=== PATIENT | male | born 1950 | race Caucasian/White ===

== ENCOUNTER 2019-04-29 09:23 | Outpatient (CLI) | payer MEDICARE, OTHER, SELFPAY ==
[2019-04-29 10:08] LABS: Basophils # 0.1 10^3/uL (0.0-0.1); Basophils % 0.9 %; Eosinophils # 0.2 10^3/uL (0.0-0.8); Eosinophils % 2.7 %; Hemoglobin 11.4 g/dL (11.7-16.6); Lymphocytes # 1.4 10^3/uL (0.8-4.8); Lymphocytes % 17.7 %; Mean Corpuscular HGB Conc 30.8 g/dL (30.0-36.0); Mean Corpuscular Hemoglobin 23.8 pg (28.0-34.0); Mean Corpuscular Volume 77.2 fL (80-94); Mean Platelet Volume 10.2 fL (7.4-10.4); Monocytes # 0.7 10^3/uL (0.2-0.9); Monocytes % 9.5 %; Neutrophils # 5.3 10^3/uL (1.8-7.7); Neutrophils % 68.6 %; Nucleated Red Blood Cells % 0 %; Platelet Count 214 10^3/cmm (130-400); Red Blood Count 4.79 10^6/uL (4.1-5.3); Red Cell Distribution Width 15.5 % (12.1-15.1); White Blood Count 7.8 10^3/uL (4.0-10.0)
[2019-04-29 10:34] LABS: Carcinoembryonic Antigen 21.7 ng/mL (0.0-4.7)
[2019-04-29 10:45] LABS: Alanine Aminotransferase 11 U/L (0-41); Albumin Level 4.3 g/dL (3.5-5.2); Alkaline Phosphatase 91 IU/L (40-130); Anion Gap 17.3 (5-19); Aspartate Amino Transferase 17 U/L (0-40); Blood Urea Nitrogen 14 mg/dL (8-23); Calcium 9.6 mg/dL (8.5-10.5); Carbon Dioxide 24 mmol/L (22-29); Chloride 100 mmol/L (98-107); Globulin 3.2 g/dL (1.3-4.6); Glomerular Filtration Rate 59.9 mL/min (90-130); Glucose 101 mg/dL (74-106); Potassium 4.3 mmol/L (3.5-5.1); Sodium 137 mmol/L (136-145); Total Bilirubin 0.5 mg/dL (0.15-1.2); Total Protein 7.5 g/dL (6.6-8.7)
[2019-04-29 11:05] LABS: Iron 38 ug/dL (59-158); Percent Saturation 18.8 % (20-50); Total Iron Binding Capacity 202 mg/dL; Unsaturated Iron Binding 164 ug/dL (112-347)
--- NOTE | 2019-05-01 10:06 | ONC FU_ITS ---
Dr. Castillo Patient Follow-Up Note Patient: Gulshan Braga Unit #: [id number]: 1950 Dicatated By: Xiang Castillo M.D.Date of Visit:Apr 29, 2019 Onc Med Follow-up/Prog Note Chief Complaint: Colon cancer. 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 He had presented with influenza pneumonia and non-ST elevation [place]. During anticoagulation in preparation for coronary artery bypass graft surgery he develop significant rectal bleeding. A CT of the abdomen and pelvis on 05/11/2014 showed a mass in the distal sigmoid colon with soft tissue stranding, but no evidence of disease in the liver. There were 2 discrete nodules in the left lower lobe up to 1.1 cm with a patchy foci in the lingula and the left lower lobe. He required a cardiac bypass graft surgery on 05/19/2014. Preoperative staging PET/CT was reportedly performed, but results were not available. He then underwent left hemicolectomy on 07/03/2014. His surgical pathology revealed 6 x 5 cm low-grade adenocarcinoma, invading through muscularis propria into the subserosal adipose tissue. Two tumor deposits were present on the pericolonic adipose tissue. None of the 24 lymph nodes harvested were involved with metastatic disease. No lymphovascular or perineural invasion was identified. Luminal obstruction of more than 70% was present. Margins were negative. Thus, his disease was pathologic stage at least IIIB (pT3, N1c, MX). Mismatch repair analysis was normal, without defect identified. The patient had relocated to [place] from [place], to be closer to his daughter. He moved to the [facility] in August 2014 and established care with the [facility] in [place]. His operations representative is Dr. Lomas. He was first seen by Dr. Vivas on 03/27/2015. His case was presented on the tumor board, consensus was to offer an adjuvant chemotherapy. In interim he had a CT of the chest/abdomen/pelvis on 04/10/2014 which showed increase in the two left lung nodules to 1.8 and 1.69 cm, concerning for metastatic disease. PET/CT on 05/05/2015 confirmed FDG positive two nodules in the left lung. A CT-guided biopsy on 06/11/2015 showed suspicious cells for malignancy, with only scant specimen available. Thus his disease was stage IV (M1b). Palliative FOLFOX and Avastin was recommended and was planned, but the patient decided against palliative chemotherapy. In the meantime, K-kylah mutation was performed on the original biopsy, and mutations were not detected. He was then followed on observation/symptomatic management. Restaging CT scans of the chest, abdomen, and pelvis on 07/24/2016 showed increasing size left pulmonary nodules/mass with the largest mass of the left lung base measuring 3.1 x 2.6 cm. Overall, four nodules were present with continued slow progression since April 2015 study. I had seen him for a follow-up visit in October 2016. He will still not interested in attempting any chemotherapy treatment, and he then failed to return for further follow-up. His other medical illnesses include hypertension, hyperlipidemia, type II diabetes, and coronary artery disease. He has a history of smoking a pack and a half of cigarettes daily for 30 years, but he quit smoking more than 10 years ago. INTERIM HISTORY: On 03/15/2018 he presented to the emergency room with back pain. He had evaluation at that time with lumbar spine CT, which showed no acute findings. He was diagnosed with acute left-sided sciatica and treated symptomatically. He returned to the emergency room on 03/28/2018. His renal CT at that time showed a partially obstructing 4 x 5 mm ureteral calculus at the left ureteropelvic junction. Other findings included prominent portal and celiac lymph nodes, a mass adjacent to the caudate lobe of the liver measuring 2.3 cm, and a low-attenuation lesion in the hepatic dome which appeared suspicious for a metastatic lesion. Also noted were enlarging pulmonary masses in the left lower lobe. I had seen him for a follow-up visit on 04/13/2018. At that point he was still having problems related to the kidney stone. He had continued follow-up with Dr. Mckeon and on 06/14/2018 he underwent extracorporeal shockwave lithotripsy for the left distal ureteral stone. He required temporary ureteral stent placement. He had no complications with the procedure, and the stent was later removed. He is seen now for a follow-up visit. He has been feeling pretty good generally. He recently was given a Z-Atul for sinusitis symptoms, and that seems to be getting better. His energy has been decent. He is walking and he is able to do light work. His appetite is good. He has gained some weight. He has no fever or night sweats. He complains of dry mouth and throat. His breathing has been okay. He does have some cough associated with the sinus drainage. He has not been having chest pain. He has no GI or complaints other than frequent urination. He has some pain in the right shoulder. He also has been having some headaches. He has no focal neurologic symptoms. He has been on an oral iron supplement for anemia. Medications: Aspirin 1 Tablet (of 81 mg) Tablet, chewable Oral daily, glipiZIDE 1 Tablet (of 5 mg) Oral b.i.d., Iron Supplement 1 Tablet (of 325 (65 fe) mg) Oral daily, Lisinopril 1 Tablet (of 10 mg) Oral b.i.d., MetFORMIN HCl 1 Tablet (of 850 mg) Oral b.i.d., Metoprolol Tartrate 1 Tablet (of 100 mg) Oral b.i.d., Rosuvastatin Calcium 0.5 Tablet Oral at bedtime, Vitamin D3 1 (2000 Units) Tablet Oral daily Allergies: Penicillin V Potassium Review of Systems: Constitutional - His energy is been okay. He is able to do light work, and he is walking every day. He has good appetite. He has gained a little weight. He does not have fever or night sweats. ECOG score is 1, ENMT - He recently was given a Z-Atul for sinusitis. He complains of having dry mouth and throat. He has no difficulty swallowing, Hematologic/Lymphatic - No abnormal bruising or bleeding, Respiratory - He is on CPAP. No shortness of breath. He has some cough associated with sinus drainage. No pleuritic pain or hemoptysis, Cardiovascular - No angina pain. No palpitations, Gastrointestinal - No nausea or vomiting. No heartburn or acid reflux. No diarrhea or constipation. No blood in the stool or black stools, Genitourinary (M) - No dysuria or hematuria. He has urinary frequency. No urgency or incontinence, Musculoskeletal - He has pain in his lower left back that comes and goes. He has no other joint or bone pain, Integumentary - No skin complications, Neurologic - He has had some headaches. No dizziness. No numbness/paresthesias or other focal neurologic symptoms, Psychiatric - No anxiety or depression. No insomnia. Vital Signs: Performed on Apr 29, 2019 10:21 Height - 67.00 in Weight - 266.0 lbs (HIGH) BSA - 2.28 sq.m BMI - 41.66 (HIGH) Temperature - 98.6 F Pulse - 65 /min Respiration - 22 /min BP - 154/76 mm(hg) (HIGH) O2 Sat - 97 % Pain - Physical Examination: Constitutional - He looks pretty good generally, Eyes - Sclerae nonicteric. Conjunctivae clear, ENMT - No lesions noted in the oral cavity, Hematologic/Lymphatic - No cervical, clavicular, or axillary adenopathy, Respiratory - Lungs show some decrease in air movement with slightly coares breath sounds bilaterally, Cardiovascular - Heart rhythm is regular. There is a II/ systolic murmur. There is no gallop or rub noted, Abdomen - Moderately distended. Liver and spleen are not enlarged. There is no abdominal mass or ascites noted and there is no inguinal adenopathy, Extremities - Slight edema, Neurologic - No focal neurologic deficits noted. Impression: 1. Low-grade adenocarcinoma of the distal sigmoid colon, stage IV (T3, N1c, M1b). 2. He underwent left hemicolectomy on 07/03/2014. 3. He had non-ST elevation myocardial infarction at initial presentation, and he did require coronary artery bypass surgery prior to the colon resection. 4. During subsequent follow-up he has had enlarging, FDG avid pulmonary nodules, consistent with metastatic disease. He has opted to have just symptomatic/supportive care. His other medical illnesses include: 5. Hypertension. 6. Hyperlipidemia. 7. Type II diabetes. As of his follow-up visit in October [address] scans had continued to show gradual disease progression. His clinical status had remained stable, and he was still not interested in attempting any chemotherapy. He then failed to return for further follow-up. On 03/15/2018 he presented to the emergency room with pain on the left side of his back. He was diagnosed with acute left sciatica, but further evaluation with a renal CT on 03/28/2018 confirm the presence of a 4 x 5 mm ureteral calculus at the left ureteropelvic junction. The CT scan also showed evidence for further progression of the metastatic colon cancer with increase in size of pulmonary nodules, though the change was not all that dramatic given the interval from the previous study. Management for the kidney stone was initially conservative, but he ultimately did undergo shockwave lithotripsy in June 2018. He has had no further problems with the nephrolithiasis. During subsequent follow-up his overall clinical status has remained stable. He has had no further imaging or other reassessment for the colon cancer. Plan: He desires to continue symptomatic/supportive care for the colon cancer. I will recheck laboratory studies today to include CBC, comprehensive metabolic profile, CEA level, and serum iron studies. He is not interested in evaluating this any further unless he becomes more symptomatic. In the meantime, if he continues to have evidence of iron deficiency anemia despite oral iron supplementation, he will be given the option to have parenteral iron replacement with Injectafer. Signed By: Xiang Castillo M.D. <<Signature on File>>
== END 2019-04-29 09:24 | disposition home or self-care (01) ==
LOC: ONCMED 09:28
PROVIDERS: Family Provider Emergency Medicine Emergency Medical Services; PCP Emergency Medicine Emergency Medical Services; Visit Provider Internal Medicine Medical Oncology
DX: C18.7 Malignant neoplasm of sigmoid colon (principal); C78.02 Secondary malignant neoplasm of left lung; D50.9 Iron deficiency anemia, unspecified; I25.2 Old myocardial infarction; I10 Essential (primary) hypertension; E11.9 Type 2 diabetes mellitus without complications; I25.10 Atherosclerotic heart disease of native coronary artery without angina pectoris; E78.5 Hyperlipidemia, unspecified; Z79.82 Long term (current) use of aspirin; Z79.84 Long term (current) use of oral hypoglycemic drugs; Z95.1 Presence of aortocoronary bypass graft; Z90.49 Acquired absence of other specified parts of digestive tract; Z87.891 Personal history of nicotine dependence; Z87.442 Personal history of urinary calculi
CPT/HCPCS: 80053; 82378; 83540; 83550; 85025; 99214

== ENCOUNTER 2019-10-27 08:49 | Outpatient (CLI) | payer MEDICARE, OTHER, SELFPAY ==
[2019-10-27 09:24] LABS: Basophils # 0.1 10^3/uL (0.0-0.1); Basophils % 1.4 %; Eosinophils # 0.2 10^3/uL (0.0-0.8); Eosinophils % 1.9 %; Hematocrit 41.5 % (42.0-52.0); Hemoglobin 12.6 g/dL (11.7-16.6); Lymphocytes # 1.6 10^3/uL (0.8-4.8); Lymphocytes % 18.5 %; Mean Corpuscular HGB Conc 30.4 g/dL (30.0-36.0); Mean Corpuscular Hemoglobin 23.3 pg (28.0-34.0); Mean Corpuscular Volume 76.7 fL (80-94); Mean Platelet Volume 10.4 fL (7.4-10.4); Monocytes # 0.8 10^3/uL (0.2-0.9); Monocytes % 9.4 %; Neutrophils # 6.07 10^3/uL (1.8-7.7); Neutrophils % 68.3 %; Nucleated Red Blood Cells % 0 %; Platelet Count 308 10^3/cmm (130-400); Red Blood Count 5.41 10^6/uL (4.1-5.3); Red Cell Distribution Width 15.9 % (12.1-15.1); White Blood Count 8.9 10^3/uL (4.0-10.0)
[2019-10-27 09:43] LABS: Carcinoembryonic Antigen 41.4 ng/mL (0.0-4.7); Thyroid Stimulating Hormone 1.73 uIU/mL (0.27-4.20)
[2019-10-27 09:55] LABS: Alanine Aminotransferase 12 U/L (0-41); Albumin Level 4.3 g/dL (3.5-5.2); Alkaline Phosphatase 93 IU/L (40-130); Anion Gap 15.9 (5-19); Aspartate Amino Transferase 19 U/L (0-40); Blood Urea Nitrogen 20 mg/dL (8-23); Calcium 9.1 mg/dL (8.5-10.5); Carbon Dioxide 24 mmol/L (22-29); Chloride 99 mmol/L (98-107); Glomerular Filtration Rate 50.1 mL/min (90-130); Glucose 96 mg/dL (65-115); Iron 30 ug/dL (59-158); Osmolality Calculated 274 mOsm/kg (285-295); Percent Saturation 13.4 % (20-50); Potassium 4.9 mmol/L (3.5-5.1); Sodium 134 mmol/L (136-145); Total Bilirubin 0.4 mg/dL (0.15-1.2); Total Iron Binding Capacity 223 mcg/dl; Total Protein 8.3 g/dL (6.6-8.7); Unsaturated Iron Binding 193 ug/dL (112-347)
--- NOTE | 2019-10-27 16:40 | ONC FU_ITS ---
Dr. Castillo Patient Follow-Up Note Patient: Gulshan Braga Unit #: [id number]: 1950 Dicatated By: Xiang Castillo M.D.Date of Visit:Oct 27, 2019 Onc Med Follow-up/Prog Note Chief Complaint: Colon cancer. 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 He had presented with influenza pneumonia and non-ST elevation [place]. During anticoagulation in preparation for coronary artery bypass graft surgery he develop significant rectal bleeding. A CT of the abdomen and pelvis on 05/11/2014 showed a mass in the distal sigmoid colon with soft tissue stranding, but no evidence of disease in the liver. There were 2 discrete nodules in the left lower lobe up to 1.1 cm with a patchy foci in the lingula and the left lower lobe. He required a cardiac bypass graft surgery on 05/19/2014. Preoperative staging PET/CT was reportedly performed, but results were not available. He then underwent left hemicolectomy on 07/03/2014. His surgical pathology revealed 6 x 5 cm low-grade adenocarcinoma, invading through muscularis propria into the subserosal adipose tissue. Two tumor deposits were present on the pericolonic adipose tissue. None of the 24 lymph nodes harvested were involved with metastatic disease. No lymphovascular or perineural invasion was identified. Luminal obstruction of more than 70% was present. Margins were negative. Thus, his disease was pathologic stage at least IIIB (pT3, N1c, MX). Mismatch repair analysis was normal, without defect identified. The patient had relocated to [place] from [place], to be closer to his daughter. He moved to the [facility] in August 2014 and established care with the [facility] in [place]. His title clerk automobile is Dr. Lomas. He was first seen by Dr. Vivas on 03/27/2015. His case was presented on the tumor board, consensus was to offer an adjuvant chemotherapy. In interim he had a CT of the chest/abdomen/pelvis on 04/10/2014 which showed increase in the two left lung nodules to 1.8 and 1.69 cm, concerning for metastatic disease. PET/CT on 05/05/2015 confirmed FDG positive two nodules in the left lung. A CT-guided biopsy on 06/11/2015 showed suspicious cells for malignancy, with only scant specimen available. Thus his disease was stage IV (M1b). Palliative FOLFOX and Avastin was recommended and was planned, but the patient decided against palliative chemotherapy. In the meantime, K-kylah mutation was performed on the original biopsy, and mutations were not detected. He was then followed on observation/symptomatic management. Restaging CT scans of the chest, abdomen, and pelvis on 07/24/2016 showed increasing size left pulmonary nodules/mass with the largest mass of the left lung base measuring 3.1 x 2.6 cm. Overall, four nodules were present with continued slow progression since April 2015 study. I had seen him for a follow-up visit in October 2016. He was still not interested in attempting any chemotherapy treatment, and he then failed to return for further follow-up. On 03/15/2018 he presented to the emergency room with back pain. He had evaluation at that time with lumbar spine CT, which showed no acute findings. He was diagnosed with acute left-sided sciatica and treated symptomatically. He returned to the emergency room on 03/28/2018. His renal CT at that time showed a partially obstructing 4 x 5 mm ureteral calculus at the left ureteropelvic junction. Other findings included prominent portal and celiac lymph nodes, a mass adjacent to the caudate lobe of the liver measuring 2.3 cm, and a low-attenuation lesion in the hepatic dome which appeared suspicious for a metastatic lesion. Also noted were enlarging pulmonary masses in the left lower lobe. I had seen him for a follow-up visit on 04/13/2018. At that point I did request further evaluation with a next generation sequencing study. It showed no actionable mutations. The tumor was noted to be MSI stable. He continued observation/expectant management for the colon cancer. However, he was still having problems related to the kidney stone. He had continued follow-up with Dr. Mckeon and on 06/14/2018 he underwent extracorporeal shockwave lithotripsy for the left distal ureteral stone. He required temporary ureteral stent placement. He had no complications with the procedure, and the stent was later removed. His other medical illnesses include hypertension, hyperlipidemia, type II diabetes, and coronary artery disease. He has a history of smoking a pack and a half of cigarettes daily for 30 years, but he quit smoking more than 10 years ago. INTERIM HISTORY: At his follow-up visit on 04/29/2019 his CEA level had increased to 21.7 ng/mL compared to 8.9 ng/mL in April 2018. However, he was still not interested in considering any treatment. He is seen now for a scheduled follow-up visit. He had not been in good generally, but some of that apparently was related to his blood pressure medication, and he has started to feel better following an adjustment in his medication regimen. He says his energy is coming back. He has been able to do light work. His appetite has not been as good. He has had significant weight loss, in excess of 30 pounds. He has not had fever. He has had some mild night sweating. He is short of breath at times. He does not complain of cough, and he has not been having chest pain. He says that he has a new kidney stone, and he does get nausea/vomiting when it acts up. His acid reflux symptoms are better now. He has mild constipation. He says his bladder function is fairly good. He has a little bit of pain in the right shoulder. He has no other joint or bone pain. He has no focal neurologic symptoms. Medications: Aspirin 1 Tablet (of 81 mg) Tablet, chewable Oral daily, glipiZIDE 1 Tablet (of 5 mg) Oral b.i.d., Iron Supplement 1 Tablet (of 325 (65 fe) mg) Oral daily, Lisinopril 1 Tablet (of 5 mg) Oral b.i.d., MetFORMIN HCl 1 Tablet (of 850 mg) Oral b.i.d., Metoprolol Tartrate 1 Tablet (of 25 mg) Oral b.i.d., Rosuvastatin Calcium 0.5 Tablet Oral at bedtime, Vitamin D3 1 (2000 Units) Tablet Oral daily Allergies: Penicillin V Potassium Review of Systems: Constitutional - He has been feeling pretty good and his energy is improving. He reports that he was taking too much blood pressure medicine and after it was adjusted by his title clerk automobile he has started feeling better. He is able to do light work. His appetite has decreased and his weight is down 32 pounds, intentionally. No fever, night sweats, or hot flashes. ECOG score is 1, ENMT - No sinus congestion/drainage. No mouth sores. No sore throat or difficulty swallowing, Hematologic/Lymphatic - No abnormal bruising or bleeding, Respiratory - He gets short of breath with exertion. No cough. No pleuritic pain or hemoptysis, Cardiovascular - No angina pain. No palpitations, Gastrointestinal - No nausea or vomiting. No heartburn or acid reflux. No diarrhea or constipation. No blood in the stool or black stools, Genitourinary (M) - No dysuria or hematuria. He has urinary frequency. No urgency or incontinence. He has a new kidney stone. He is seeing Dr. Mckeon for it, Musculoskeletal - He has a little bit of pain in his right shoulder, Integumentary - No skin complications, Neurologic - No headache or dizziness. No numbness or tingling. No other focal neurologic symptoms, Psychiatric - No anxiety or depression. No insomnia. Vital Signs: Performed on Oct 27, 2019 09:59 Height - 67.00 in Weight - 232.0 lbs (LOW) BSA - 2.15 sq.m BMI - 36.34 (HIGH) Temperature - 97.9 F (LOW) Pulse - 55 /min (LOW) Respiration - 24 /min BP - 135/69 mm(hg) O2 Sat - 99 % Pain - 0 Physical Examination: Constitutional - He looks pretty good generally, Eyes - Sclerae nonicteric. Conjunctivae clear, ENMT - No lesions noted in the oral cavity, Hematologic/Lymphatic - No cervical, clavicular, or axillary adenopathy, Respiratory - Lungs sound clear with some decrease in air movement bilaterally, Cardiovascular - Heart rhythm is irregular. There is a II/ systolic murmur. There is no gallop or rub noted, Abdomen - Moderately distended. Liver and spleen are not enlarged. There is no abdominal mass or ascites noted and there is no inguinal adenopathy, Extremities - No edema, Neurologic - No focal neurologic deficits noted. Lab/Imaging: Test performed on Oct 27, 2019 09:08 Iron 30 mcg/dL Sodium 134 mmol/L TSH 1.73 uIU/mL Iron Binding Capacity (TIBC) 223 mcg/dl Potassium 4.9 mmol/L % Iron Saturation 13.4 % Chloride 99 mmol/L CO2 24 mmol/L UIBC 193 mcg/dL Anion Gap 15.9 BUN 20 mg/dL Creatinine 1.4 mg/dL Cr Clearance (Est) 73.08 mL/min eGFR 50.1 mL/min Glucose 96 mg/dL Calcium 9.1 mg/dL Protein, Total 8.3 g/dL Albumin 4.3 g/dL Globulin 4.0 g/dL Bilirubin, Total 0.4 mg/dL ALT (SGPT) 12 U/L AST (SGOT) 19 U/L Alkaline Phosphatase 93 IU/L WBC 8.9 10 3/uL RBC 5.41 10 6/uL HGB 12.6 g/dL HCT 41.5 % MCV 76.7 fL MCH 23.3 pg MCHC 30.4 g/dL RDW 15.9 % Platelet Count 308 10 3/cmm MPV 10.4 fL Neutrophils 6.07 10 3/uL Lymphocytes 1.6 10 3/uL Monocytes 0.8 10 3/uL Eosinophils 0.2 10 3/uL Basophils 0.1 10 3/uL Neutrophil % 68.3 % Lymphocyte % 18.5 % Monocyte % 9.4 % Eosinophil % 1.9 % Basophils % 1.4 % NRBC % 0 % CEA 41.4 ng/mL Impression: 1. Low-grade adenocarcinoma of the distal sigmoid colon, stage IV (T3, N1c, M1b). 2. He underwent left hemicolectomy on 07/03/2014. 3. He had non-ST elevation myocardial infarction at initial presentation, and he did require coronary artery bypass surgery prior to the colon resection. 4. During subsequent follow-up he has had enlarging, FDG avid pulmonary nodules, consistent with metastatic disease. He has opted to have just symptomatic/supportive care. His other medical illnesses include: 5. Hypertension. 6. Hyperlipidemia. 7. Type II diabetes. As of his follow-up visit in October [address] scans had continued to show gradual disease progression. His clinical status had remained stable, and he was still not interested in attempting any chemotherapy. He then failed to return for further follow-up. On 03/15/2018 he presented to the emergency room with pain on the left side of his back. He was diagnosed with acute left sciatica, but further evaluation with a renal CT on 03/28/2018 confirm the presence of a 4 x 5 mm ureteral calculus at the left ureteropelvic junction. The CT scan also showed evidence for further progression of the metastatic colon cancer with increase in size of pulmonary nodules, though the change was not all that dramatic given the interval from the previous study. During his further follow-up he has had ongoing problems with the nephrolithiasis. He has had evidence of iron deficiency, but he has just been borderline anemic. He is showing a progressive increase in his CEA level, consistent with progression of the colon cancer, though he has not been overtly symptomatic with it. Plan: Given the significant increase in the CEA, he will be scheduled for restaging CT scans of the chest, abdomen, and pelvis. He will have further evaluation as indicated. It is unclear, though, where he will ever consider treatment for it. Signed By: Xiang Castillo M.D. <<Signature on File>>
== END 2019-10-27 08:50 | disposition home or self-care (01) ==
LOC: ONCMED 08:57
PROVIDERS: PCP Emergency Medicine Emergency Medical Services; Visit Provider Internal Medicine Medical Oncology
DX: C18.7 Malignant neoplasm of sigmoid colon (principal); E61.1 Iron deficiency; I25.2 Old myocardial infarction; I10 Essential (primary) hypertension; E78.5 Hyperlipidemia, unspecified; E11.9 Type 2 diabetes mellitus without complications; N20.0 Calculus of kidney; Z90.49 Acquired absence of other specified parts of digestive tract
CPT/HCPCS: 36415; 80053; 82378; 83540; 83550; 84443; 85025; 99214

== ENCOUNTER 2019-11-03 20:00 | Outpatient (CLI) | payer OTHER, SELFPAY | END 2019-11-03 20:01 | disposition home or self-care (01) | LOC: SLEEP 11-04 10:10 | PROVIDERS: PCP Emergency Medicine Emergency Medical Services; Visit Provider Emergency Medicine Emergency Medical Services | DX: G47.33 Obstructive sleep apnea (adult) (pediatric) (principal) | CPT/HCPCS: 95811 ==

== ENCOUNTER 2019-11-07 12:31 | Outpatient (CLI) | payer MEDICARE, OTHER, SELFPAY ==
--- NOTE | 2019-11-07 12:40 | CT_ITS ---
WS: [id number] CT CHEST, ABDOMEN, AND PELVIS TECHNIQUE: Noncontrast CT of the chest, abdomen, and pelvis with coronal and sagittal reformatted sarabjit ges. CLINICAL INFORMATION: MALIGNANT NEOPLASM OF SIGMOID COLON COMPARISON: CT , , March 26, 2016, December 14, 2015, September 07, 2015 DLP: 2631.[address] scans at [facility] use at least one of these dose optimization techniques: automat ed exposure control; mA and/or kV adjustment per patient size (includes targeted exams where dose is matched to clinical indication); or iterative reconstruction. CT CHEST: Increasing metastatic pulmonary nodules within both lungs compared to the prior [address]. [address] lesions in the left upper lobe measuring 3.5 x 2.9 cm and left lower lobe measuring 4.6 x 4.9 CCM. Smaller cysts numerous similar-appearing nodules throughout both lungs. Number of pulmonary nodules as significant. Since July 24, [address] Aortic calcification. No significant mediastinal lymphadenopathy. No axillary lymphadenopathy. Prior sternotomy. CT ABDOMEN AND PELVIS: Prior postoperative changes sigmoid anastomosis. Cholecystectomy clips. Heterogeneous metastatic lesi ons within the right hepatic lobe on this noncontrast examination. These appear progressed since the prior studies the largest lesions measure 4.3 x 3.4 cm in the dome of the liver and in the right hepa tic lobe laterally measuring 4.8 cm. Normal GE junction. Noncontrast spleen is normal. Multiple enlarged partially calcified progressed ly mph nodes in the love hepatis and celiac axis. Bulky enlarged retrocrural and gastroesophageal lymph nodes new from previous.New bulky calcified periaortic and retroperitoneal lymphadenopathy Adrenal glands are normal. No hydronephrosis. Left renal cysts. Normal caliber abdominal aorta. Aorti c calcification. Hypertrophic changes thoracic spine. Stable lytic lesion right iliac wing. CT/CT chest abd pel wo con IMPRESSION: 1. Significant progression of disease in the chest abdomen and pelvis compared to the prior examinations. 2. Multiple new pulmonary nodules the largest nodules in the left upper lobe a nd left lower lobe described above. 3. New and progressed low-attenuation lesions in the liver most consistent wit h metastatic disease on this noncontrast examination. 4. New bulky calcified lymphadenopathy in the upper abdomen, retrocrural, eva ac axis, periaortic, and retroperitoneal from previous. 5. Largest periaortic lymph node measures 3.1 x 4.1 cm.
[2019-11-07] MEDS: iohexol 300 mg/mL 50 mL Btl PO (13:38)
== END 2019-11-07 12:32 | disposition home or self-care (01) ==
LOC: RADWPI 12:34
PROVIDERS: PCP Emergency Medicine Emergency Medical Services; Visit Provider Internal Medicine Medical Oncology
DX: C18.7 Malignant neoplasm of sigmoid colon (principal); R91.8 Other nonspecific abnormal finding of lung field; K76.9 Liver disease, unspecified; R59.0 Localized enlarged lymph nodes
CPT/HCPCS: 71250; 74176; Q9967

== ENCOUNTER 2019-11-11 08:40 | Outpatient (CLI) | payer MEDICARE, OTHER, SELFPAY ==
--- NOTE | 2019-11-11 12:17 | ONC FU_ITS ---
Dr. Castillo Patient Follow-Up Note Patient: Gulshan Braga Unit #: [id number]: 1950 Dicatated By: Xiang Castillo M.D.Date of Visit:Nov 11, 2019 Onc Med Follow-up/Prog Note Chief Complaint: Colon cancer. 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 He had presented with influenza pneumonia and non-ST elevation AK. During anticoagulation in preparation for coronary artery bypass graft surgery he develop significant rectal bleeding. A CT of the abdomen and pelvis on 05/11/2014 showed a mass in the distal sigmoid colon with soft tissue stranding, but no evidence of disease in the liver. There were 2 discrete nodules in the left lower lobe up to 1.1 cm with a patchy foci in the lingula and the left lower lobe. He required a cardiac bypass graft surgery on 05/19/2014. Preoperative staging PET/CT was reportedly performed, but results were not available. He then underwent left hemicolectomy on 07/03/2014. His surgical pathology revealed 6 x 5 cm low-grade adenocarcinoma, invading through muscularis propria into the subserosal adipose tissue. Two tumor deposits were present on the pericolonic adipose tissue. None of the 24 lymph nodes harvested were involved with metastatic disease. No lymphovascular or perineural invasion was identified. Luminal obstruction of more than 70% was present. Margins were negative. Thus, his disease was pathologic stage at least IIIB (pT3, N1c, MX). Mismatch repair analysis was normal, without defect identified. The patient had relocated to [place] from [place], to be closer to his daughter. He moved to the [facility] in August 2014 and established care with the [facility] in [place]. 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 He was first seen by Dr. Vivas on 03/27/2015. His case was presented on the tumor board, consensus was to offer an adjuvant chemotherapy. In interim he had a CT of the chest/abdomen/pelvis on 04/10/2014 which showed increase in the two left lung nodules to 1.8 and 1.69 cm, concerning for metastatic disease. PET/CT on 05/05/2015 confirmed FDG positive two nodules in the left lung. A CT-guided biopsy on 06/11/2015 showed suspicious cells for malignancy, with only scant specimen available. Thus his disease was stage IV (M1b). Palliative FOLFOX and Avastin was recommended and was planned, but the patient decided against palliative chemotherapy. In the meantime, K-kylah mutation was performed on the original biopsy, and mutations were not detected. He was then followed on observation/symptomatic management. Restaging CT scans of the chest, abdomen, and pelvis on 07/24/2016 showed increasing size left pulmonary nodules/mass with the largest mass of the left lung base measuring 3.1 x 2.6 cm. Overall, four nodules were present with continued slow progression since April 2015 study. I had seen him for a follow-up visit in October 2016. He was still not interested in attempting any chemotherapy treatment, and he then failed to return for further follow-up. On 03/15/2018 he presented to the emergency room with back pain. He had evaluation at that time with lumbar spine CT, which showed no acute findings. He was diagnosed with acute left-sided sciatica and treated symptomatically. He returned to the emergency room on 03/28/2018. His renal CT at that time showed a partially obstructing 4 x 5 mm ureteral calculus at the left ureteropelvic junction. Other findings included prominent portal and celiac lymph nodes, a mass adjacent to the caudate lobe of the liver measuring 2.3 cm, and a low-attenuation lesion in the hepatic dome which appeared suspicious for a metastatic lesion. Also noted were enlarging pulmonary masses in the left lower lobe. I had seen him for a follow-up visit on 04/13/2018. At that point I did request further evaluation with a next generation sequencing study. It showed no actionable mutations. The tumor was noted to be MSI stable. He continued observation/expectant management for the colon cancer. However, he was still having problems related to the kidney stone. He had continued follow-up with Dr. Mckeon and on 06/14/2018 he underwent extracorporeal shockwave lithotripsy for the left distal ureteral stone. He required temporary ureteral stent placement. He had no complications with the procedure, and the stent was later removed. His other medical illnesses include hypertension, hyperlipidemia, type II diabetes, and coronary artery disease. He has a history of smoking a pack and a half of cigarettes daily for 30 years, but he quit smoking more than 10 years ago. INTERIM HISTORY: At his follow-up visit on 04/29/2019 his CEA level had increased to 21.7 ng/mL compared to 8.9 ng/mL in April 2018. However, he was still not interested in considering any treatment. He was then seen for a follow-up visit again on 10/27/2019. At that point his CEA had further increased to 41.4 ng/mL. He then had restaging CT scans of the chest, abdomen, and pelvis on 11/07/2019. Those studies showed significant progression of metastatic disease with increasing pulmonary nodules in both lungs, the largest in the left upper lobe measuring 3.5 x 2.9 cm and in the left lower lobe measuring 4.6 x 4.9 cm. There was progression of metastatic lesions in the right hepatic lobe, the largest measuring 4.3 x 3.4 cm in the dome of the liver and 4.8 cm in the right hepatic lobe laterally. Also noted were multiple enlarged partially calcified lymph nodes in the love hepatis and celiac axis, bulky enlarged retrocrural and gastroesophageal lymph nodes, and bulky periaortic and retroperitoneal lymph nodes, all new from previous studies. He is seen today to review the CT findings and to discuss treatment options. His daughter is present with him for the visit. Medications: Aspirin 1 Tablet (of 81 mg) Tablet, chewable Oral daily, glipiZIDE 1 Tablet (of 5 mg) Oral b.i.d., Iron Supplement 1 Tablet (of 325 (65 fe) mg) Oral daily, Lisinopril 1 Tablet (of 5 mg) Oral b.i.d., MetFORMIN HCl 1 Tablet (of 850 mg) Oral b.i.d., Metoprolol Tartrate 1 Tablet (of 25 mg) Oral b.i.d., Rosuvastatin Calcium 0.5 Tablet Oral at bedtime, Vitamin D3 1 (2000 Units) Tablet Oral daily Allergies: Penicillin V Potassium Vital Signs: Performed on Nov 11, 2019 09:03 Height - 67.00 in Weight - 231.2 lbs (LOW) BSA - 2.15 sq.m BMI - 36.21 (HIGH) Temperature - 98.2 F (LOW) Pulse - 81 /min Respiration - 24 /min BP - 114/65 mm(hg) O2 Sat - 98 % Pain - 0 Lab/Imaging: Test performed on Oct 27, 2019 09:08 Iron 30 mcg/dL Sodium 134 mmol/L TSH 1.73 uIU/mL Iron Binding Capacity (TIBC) 223 mcg/dl Potassium 4.9 mmol/L % Iron Saturation 13.4 % Chloride 99 mmol/L CO2 24 mmol/L UIBC 193 mcg/dL Anion Gap 15.9 BUN 20 mg/dL Creatinine 1.4 mg/dL Cr Clearance (Est) 73.08 mL/min eGFR 50.1 mL/min Glucose 96 mg/dL Calcium 9.1 mg/dL Protein, Total 8.3 g/dL Albumin 4.3 g/dL Globulin 4.0 g/dL Bilirubin, Total 0.4 mg/dL ALT (SGPT) 12 U/L AST (SGOT) 19 U/L Alkaline Phosphatase 93 IU/L WBC 8.9 10 3/uL RBC 5.41 10 6/uL HGB 12.6 g/dL HCT 41.5 % MCV 76.7 fL MCH 23.3 pg MCHC 30.4 g/dL RDW 15.9 % Platelet Count 308 10 3/cmm MPV 10.4 fL Neutrophils 6.07 10 3/uL Lymphocytes 1.6 10 3/uL Monocytes 0.8 10 3/uL Eosinophils 0.2 10 3/uL Basophils 0.1 10 3/uL Neutrophil % 68.3 % Lymphocyte % 18.5 % Monocyte % 9.4 % Eosinophil % 1.9 % Basophils % 1.4 % NRBC % 0 % CEA 41.4 ng/mL Impression: 1. Low-grade adenocarcinoma of the distal sigmoid colon, stage IV (T3, N1c, M1b). 2. He underwent left hemicolectomy on 07/03/2014. 3. He had non-ST elevation myocardial infarction at initial presentation, and he did require coronary artery bypass surgery prior to the colon resection. 4. During subsequent follow-up he has had enlarging, FDG avid pulmonary nodules, consistent with metastatic disease. He has opted to have just symptomatic/supportive care. His other medical illnesses include: 5. Hypertension. 6. Hyperlipidemia. 7. Type II diabetes. As of his follow-up visit in October [address] scans had continued to show gradual disease progression. His clinical status had remained stable, and he was still not interested in attempting any chemotherapy. He then failed to return for further follow-up. On 03/15/2018 he presented to the emergency room with pain on the left side of his back. He was diagnosed with acute left sciatica, but further evaluation with a renal CT on 03/28/2018 confirm the presence of a 4 x 5 mm ureteral calculus at the left ureteropelvic junction. The CT scan also showed evidence for further progression of the metastatic colon cancer with increase in size of pulmonary nodules, though the change was not all that dramatic given the interval from the previous study. During his further follow-up he has had ongoing problems with the nephrolithiasis. As of his follow-up visit on 10/27/2019 his clinical status appeared stable, but there had been a significant increase in his CEA level, to 41.4 ng/mL. Restaging CT scans of the chest, abdomen, and pelvis on 11/07/2019 showed significant progression of pulmonary and hepatic metastatic disease and development of bulky intra-abdominal and retroperitoneal lymphadenopathy. Plan: The CT findings and the CT images were reviewed with the patient and his daughter. We discussed the clinical implications. He has had significant disease progression, but over time period which is now in excess of 3 years. He is still not overtly symptomatic with it. Left untreated, it will continue to progress, but I would not be able to predict at what point it may become symptomatic. He has previously not been interested in attempting any treatment for it. However, I did discuss 2 treatment options, one of which would be standard chemotherapy regimen, either FOLFOX or FOLFIRI, in combination with Avastin or panitumumab. Either regimen would have a response rate in the range of 50%, with average survival in the range of 2 years. There would be expected side effects with the chemotherapy. The other option would be a trial of therapy with panitumumab as a single modality. The response rate would be much lower, in the range of 30%. It would have the expected side effect of a skin eruption, but very low risk for any other significant toxicity. After some discussion, he indicates that he would be interested in trying the panitumumab without the chemotherapy. As such, I will have him scheduled to return and begin treatment with panitumumab 6 mg/kg by IV infusion every 2 weeks, subject to verification of insurance coverage. [id number] time with patient was more than 20 minutes, greater than 50% spent in counseling/discussion. Signed By: Xiang Castillo M.D. <<Signature on File>>
== END 2019-11-11 08:41 | disposition home or self-care (01) ==
LOC: ONCMED 08:44
PROVIDERS: PCP Family Medicine; Visit Provider Internal Medicine Medical Oncology
DX: C18.7 Malignant neoplasm of sigmoid colon (principal); C78.7 Secondary malignant neoplasm of liver and intrahepatic bile duct; C78.01 Secondary malignant neoplasm of right lung; C78.02 Secondary malignant neoplasm of left lung; C77.2 Secondary and unspecified malignant neoplasm of intra-abdominal lymph nodes; I10 Essential (primary) hypertension; E78.5 Hyperlipidemia, unspecified; E11.9 Type 2 diabetes mellitus without complications
CPT/HCPCS: 99214

== ENCOUNTER 2019-11-17 06:28 | Outpatient (CLI) | payer MEDICARE, OTHER, SELFPAY ==
[2019-11-17 13:51] LABS: Basophils # 0.1 10^3/uL (0.0-0.1); Basophils % 0.9 %; Eosinophils # 0.2 10^3/uL (0.0-0.8); Eosinophils % 2.6 %; Hematocrit 36.6 % (42.0-52.0); Hemoglobin 11.3 g/dL (11.7-16.6); Lymphocytes # 1.4 10^3/uL (0.8-4.8); Lymphocytes % 18.4 %; Mean Corpuscular HGB Conc 30.9 g/dL (30.0-36.0); Mean Corpuscular Hemoglobin 23.8 pg (28.0-34.0); Mean Corpuscular Volume 77.1 fL (80-94); Mean Platelet Volume 10.6 fL (7.4-10.4); Monocytes # 0.7 10^3/uL (0.2-0.9); Monocytes % 9.7 %; Neutrophils # 5.02 10^3/uL (1.8-7.7); Neutrophils % 67.6 %; Nucleated Red Blood Cells % 0 %; Platelet Count 235 10^3/cmm (130-400); Red Blood Count 4.75 10^6/uL (4.1-5.3); Red Cell Distribution Width 16.3 % (12.1-15.1); White Blood Count 7.4 10^3/uL (4.0-10.0)
[2019-11-17] MEDS: sodium chloride 0.9% 250 ML 75 ML IV (14:10)
[2019-11-17] MEDS: acetaminophen 325 mg Tablet 650 MG PO (14:10)
[2019-11-17 14:18] LABS: Alanine Aminotransferase 9 U/L (0-41); Alkaline Phosphatase 77 IU/L (40-130); Anion Gap 14.3 (5-19); Aspartate Amino Transferase 17 U/L (0-40); Blood Urea Nitrogen 20 mg/dL (8-23); Calcium 9.1 mg/dL (8.5-10.5); Carbon Dioxide 23 mmol/L (22-29); Chloride 104 mmol/L (98-107); Globulin 3.2 g/dL (1.3-4.6); Glomerular Filtration Rate 50.1 mL/min (90-130); Glucose 102 mg/dL (65-115); Osmolality Calculated 281 mOsm/kg (285-295); Potassium 4.3 mmol/L (3.5-5.1); Sodium 137 mmol/L (136-145); Total Bilirubin 0.3 mg/dL (0.15-1.2); Total Protein 7.2 g/dL (6.6-8.7)
== END 2019-11-17 06:29 | disposition home or self-care (01) ==
LOC: ONCMED 06:32
PROVIDERS: PCP Family Medicine; Visit Provider Internal Medicine Medical Oncology
DX: Z51.12 Encounter for antineoplastic immunotherapy (principal); C77.2 Secondary and unspecified malignant neoplasm of intra-abdominal lymph nodes; C78.00 Secondary malignant neoplasm of unspecified lung; C78.7 Secondary malignant neoplasm of liver and intrahepatic bile duct; C18.7 Malignant neoplasm of sigmoid colon
CPT/HCPCS: 80053; 85025; 96367; 96413; J1200; J3490; J7050; J9303

== ENCOUNTER 2019-12-01 08:12 | Outpatient (CLI) | payer MEDICARE, OTHER, SELFPAY ==
[2019-12-01 08:55] LABS: Basophils # 0.1 10^3/uL (0.0-0.1); Eosinophils # 0.3 10^3/uL (0.0-0.8); Eosinophils % 2.6 %; Hematocrit 38.6 % (42.0-52.0); Hemoglobin 11.8 g/dL (11.7-16.6); Lymphocytes # 1.4 10^3/uL (0.8-4.8); Lymphocytes % 10.7 %; Mean Corpuscular HGB Conc 30.6 g/dL (30.0-36.0); Mean Corpuscular Hemoglobin 23.2 pg (28.0-34.0); Mean Corpuscular Volume 75.8 fL (80-94); Mean Platelet Volume 9.9 fL (7.4-10.4); Neutrophils % 77.2 %; Nucleated Red Blood Cells % 0 %; Platelet Count 237 10^3/cmm (130-400); Red Blood Count 5.09 10^6/uL (4.1-5.3); Red Cell Distribution Width 16.9 % (12.1-15.1); White Blood Count 12.6 10^3/uL (4.0-10.0)
[2019-12-01 09:25] LABS: Estmated Average Glucose 105; Hemoglobin A1C 5.3 % (4.0-6.0)
[2019-12-01 09:28] LABS: Alanine Aminotransferase 15 U/L (0-41); Albumin Level 3.6 g/dL (3.5-5.2); Alkaline Phosphatase 76 IU/L (40-130); Anion Gap 15.4 (5-19); Aspartate Amino Transferase 14 U/L (0-40); Blood Urea Nitrogen 16 mg/dL (8-23); Calcium 8.4 mg/dL (8.5-10.5); Carbon Dioxide 21 mmol/L (22-29); Chloride 103 mmol/L (98-107); Globulin 3.6 g/dL (1.3-4.6); Glomerular Filtration Rate 66.2 mL/min (90-130); Glucose 89 mg/dL (65-115); Osmolality Calculated 276 mOsm/kg (285-295); Potassium 4.4 mmol/L (3.5-5.1); Sodium 135 mmol/L (136-145); Thyroid Stimulating Hormone 2.01 uIU/mL (0.27-4.20); Total Bilirubin 0.3 mg/dL (0.15-1.2); Total Protein 7.2 g/dL (6.6-8.7)
--- NOTE | 2019-12-04 14:46 | ONC FU_ITS ---
[facility] Patient Note Patient: Gulshan Braga Unit #: [id number]: 1950 Dictated By: Philip OscarDate of Visit: Dec 01, 2019 Onc MED Follow-Up/Prog Note Chief Complaint: Colon cancer. 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 He had presented with influenza pneumonia and non-ST elevation CA. During anticoagulation in preparation for coronary artery bypass graft surgery he develop significant rectal bleeding. A CT of the abdomen and pelvis on 05/11/2014 showed a mass in the distal sigmoid colon with soft tissue stranding, but no evidence of disease in the liver. There were 2 discrete nodules in the left lower lobe up to 1.1 cm with a patchy foci in the lingula and the left lower lobe. He required a cardiac bypass graft surgery on 05/19/2014. Preoperative staging PET/CT was reportedly performed, but results were not available. He then underwent left hemicolectomy on 07/03/2014. His surgical pathology revealed 6 x 5 cm low-grade adenocarcinoma, invading through muscularis propria into the subserosal adipose tissue. Two tumor deposits were present on the pericolonic adipose tissue. None of the 24 lymph nodes harvested were involved with metastatic disease. No lymphovascular or perineural invasion was identified. Luminal obstruction of more than 70% was present. Margins were negative. Thus, his disease was pathologic stage at least IIIB (pT3, N1c, MX). Mismatch repair analysis was normal, without defect identified. The patient had relocated to [place] from [place], to be closer to his daughter. He moved to the [facility] in August 2014 and established care with the [facility] in [place]. His trade sales assistant is Dr. Lomas. He was first seen by Dr. Vivas on 03/27/2015. His case was presented on the tumor board, consensus was to offer an adjuvant chemotherapy. In interim he had a CT of the chest/abdomen/pelvis on 04/10/2014 which showed increase in the two left lung nodules to 1.8 and 1.69 cm, concerning for metastatic disease. PET/CT on 05/05/2015 confirmed FDG positive two nodules in the left lung. A CT-guided biopsy on 06/11/2015 showed suspicious cells for malignancy, with only scant specimen available. Thus his disease was stage IV (M1b). Palliative FOLFOX and Avastin was recommended and was planned, but the patient decided against palliative chemotherapy. In the meantime, K-kylah mutation was performed on the original biopsy, and mutations were not detected. He was then followed on observation/symptomatic management. Restaging CT scans of the chest, abdomen, and pelvis on 07/24/2016 showed increasing size left pulmonary nodules/mass with the largest mass of the left lung base measuring 3.1 x 2.6 cm. Overall, four nodules were present with continued slow progression since April 2015 study. I had seen him for a follow-up visit in October 2016. He was still not interested in attempting any chemotherapy treatment, and he then failed to return for further follow-up. On 03/15/2018 he presented to the emergency room with back pain. He had evaluation at that time with lumbar spine CT, which showed no acute findings. He was diagnosed with acute left-sided sciatica and treated symptomatically. He returned to the emergency room on 03/28/2018. His renal CT at that time showed a partially obstructing 4 x 5 mm ureteral calculus at the left ureteropelvic junction. Other findings included prominent portal and celiac lymph nodes, a mass adjacent to the caudate lobe of the liver measuring 2.3 cm, and a low-attenuation lesion in the hepatic dome which appeared suspicious for a metastatic lesion. Also noted were enlarging pulmonary masses in the left lower lobe. Dr Castillo had seen him for a follow-up visit on 04/13/2018. At that point Dr Castillo did request further evaluation with a next generation sequencing study. It showed no actionable mutations. The tumor was noted to be MSI stable. He continued observation/expectant management for the colon cancer. However, he was still having problems related to the kidney stone. He had continued follow-up with Dr. Mckeon and on 06/14/2018 he underwent extracorporeal shockwave lithotripsy for the left distal ureteral stone. He required temporary ureteral stent placement. He had no complications with the procedure, and the stent was later removed. His other medical illnesses include hypertension, hyperlipidemia, type II diabetes, and coronary artery disease. He has a history of smoking a pack and a half of cigarettes daily for 30 years, but he quit smoking more than 10 years ago. INTERIM HISTORY: At his follow-up visit on 04/29/2019 his CEA level had increased to 21.7 ng/mL compared to 8.9 ng/mL in April 2018. However, he was still not interested in considering any treatment. He was then seen for a follow-up visit again on 10/27/2019. At that point his CEA had further increased to 41.4 ng/mL. He then had restaging CT scans of the chest, abdomen, and pelvis on 11/07/2019. Those studies showed significant progression of metastatic disease with increasing pulmonary nodules in both lungs, the largest in the left upper lobe measuring 3.5 x 2.9 cm and in the left lower lobe measuring 4.6 x 4.9 cm. There was progression of metastatic lesions in the right hepatic lobe, the largest measuring 4.3 x 3.4 cm in the dome of the liver and 4.8 cm in the right hepatic lobe laterally. Also noted were multiple enlarged partially calcified lymph nodes in the love hepatis and celiac axis, bulky enlarged retrocrural and gastroesophageal lymph nodes, and bulky periaortic and retroperitoneal lymph nodes, all new from previous studies. He was seen in October [address] findings and to discuss treatment options. His daughter was present with him for that visit. The CT findings and the CT images were reviewed with the patient and his daughter per Dr Castillo. He also discussed the clinical implications. He has had significant disease progression, but over time period which is now in excess of 3 years. He is still not overtly symptomatic with it. Left untreated, it will continue to progress, and we would not be able to predict at what point it may become symptomatic. He has previously not been interested in attempting any treatment for it. However, Dr Castillo did discuss 2 treatment options, one of which would be standard chemotherapy regimen, either FOLFOX or FOLFIRI, in combination with Avastin or panitumumab. Either regimen would have a response rate in the range of 50%, with average survival in the range of 2 years. There would be expected side effects with the chemotherapy. The other option would be a trial of therapy with panitumumab as a single modality. The response rate would be much lower, in the range of 30%. It would have the expected side effect of a skin eruption, but very low risk for any other significant toxicity. Mr. Braga opted to try single agent Panitumumab. He began his first cycle on November 17, 2019. He developed classic moderate vectibix rash on week 2 of cycle 1. Mr. Braga is here today for follow-up and consideration of cycle 2 Panitumumab. He has been applying triamcinolone to his rash has had minimal improvement. He states it is becoming very itchy. He states he is really not been out in the sun much at all. He had one episode of nausea when the rash developed but states the nausea medicine take care of it and has had no further nausea. He denies any fever or chills. He denies mouth sores, sore throat or difficulty swallowing. He has had no diarrhea that he will complain of. He states other than the rash he feels pretty good. He states he is eating okay was somewhat active around the house when he can be. His ECOG is 1 Past Medical History: Coronary artery disease Diabetes type I Hyperlipidemia Hypertension Sleep Apnea in 2016 Past Surgical History: Appendectomy Cataract excision Cholecystectomy Colonoscopy Coronary artery bypass Allergies: Penicillin V Potassium Medications: Aspirin 1 Tablet (of 81 mg) Tablet, chewable Oral daily glipiZIDE 1 Tablet (of 5 mg) Oral b.i.d. Iron Supplement 1 Tablet (of 325 (65 fe) mg) Oral daily Lisinopril 1 Tablet (of 5 mg) Oral b.i.d. MetFORMIN HCl 1 Tablet (of 850 mg) Oral b.i.d. Metoprolol Tartrate 1 Tablet (of 25 mg) Oral b.i.d. Rosuvastatin Calcium 0.5 Tablet Oral at bedtime Vitamin D3 1 (2000 Units) Tablet Oral daily Family History: Mr. Braga's mother is . Mr. Braga's father is . unknown family history, brother with history of heart disease. Social History: Mr. Braga is and he is retired. Mr. Braga quit smoking 11 years ago but had smoked 1.5 packs/day for 30 years. He has indicated exposure to the following products: cigarettes. Mr. Braga reports the following support systems: lives alone, lives in own house, supportive family/friends willing to assist with needs, and adequate transportation available for expected visits. His diet consists of regular meals. He indicates his activity level as: daily activities. Review Of Symptoms: Constitutional Denies fevers, chills, night sweats, excessive fatigue or weight loss. Has some fatigue but no worse than what is has been. Allergic/Immunologic No reactions. Eyes Denies significant visual changes. No diplopia. No amaurosis. ENMT Denies changes in hearing, sore throat, mouth sores, difficulty or changes in swallowing ability, and/or sinus drainage. Endocrine No diabetes, thyroid disease or hormone replacement. Denies hot flashes or night sweats. Hematologic/Lymphatic Denies easy bruising or bleeding. The patient denies any tender or palpable lymph nodes. Respiratory Denies dyspnea on exertion, chest pain, cough or hemoptysis. Denies orthopnea. Cardiovascular Denies anginal chest pain, palpitations or orthopnea. Gastrointestinal Denies nausea, vomiting, diarrhea, GI bleeding, or constipation. Denies change in bowel habits and/or stool color, no heartburn or early satiety. Genitourinary (M) Denies hematuria, dysuria, increased frequency, urgency, hesitancy or incontinence. Musculoskeletal Denies joint pain, swelling or redness. No decreased range of motion. Integumentary Classic maculopapular Vectibix rash on face, chest, arms and upper back. Mild pustules noted on nose but otherwise moderate rash noted elsewhere-no pustules. Neurologic Denies headache, blurred vision, and no areas of focal weakness or numbness. Normal gait. No sensory problems. Psychiatric Denies insomnia, depression, judith or mood swings. Vital Signs: Performed on Dec 01, 2019 10:08 Height - 67.00 in Weight - 229.2 lbs (LOW) BSA - 2.14 sq.m BMI - 35.90 (HIGH) Temperature - 98.1 F (LOW) Pulse - 72 /min Respiration - 16 /min BP - 135/77 mm(hg) O2 Sat - 99 % Pain - 0,2 - Ambulatory/capable of all self-care, unable to perform any work activities. Up and about more than 50% of waking hours. (ECOG) Physical Examination: Constitutional Alert, oriented, no acute distress. Skin pink, warm and dry. Head Normocephalic; atraumatic. Eyes Conjunctivae and sclerae are clear and without icterus. Pupils are reactive and equal. Neck Supple without masses or thyromegaly. No jugular venous distension. Hematologic/Lymphatic No petechiae or purpura. No tender or palpable lymph nodes in the cervical, supraclavicular, or axillary area. Respiratory Lungs are clear to auscultation without rhonchi or wheezing. Cardiovascular Regular rate and rhythm of heart without murmurs,clicks, gallops or rubs. Abdomen Non-tender, non-distended, no masses, ascites. Back/Spine Non-tender to palpation. Extremities No visible deformities, no cyanosis, clubbing or edema. Musculoskeletal No tenderness or swelling, normal range of motion without obvious weakness. Integumentary Classic moderate Vectibix rash on face, arms chest and upper back. Mild to moderate/healing pustules noted on nose. Neurologic No sensory or motor deficits, normal cerebellar function, assisted gait-walks with cane-not new. Psychiatric Alert and oriented times three. Coherent speech. Verbalizes understanding of our discussions today. Laboratory:Test performed on Dec 01, 2019 08:33 Sodium 135 mmol/L TSH 2.01 uIU/mL Potassium 4.4 mmol/L Chloride 103 mmol/L CO2 21 mmol/L Anion Gap 15.4 BUN 16 mg/dL Creatinine 1.1 mg/dL Cr Clearance (Est) 92.6900 mL/min eGFR 66.2 mL/min Glucose 89 mg/dL Calcium 8.4 mg/dL Protein, Total 7.2 g/dL Albumin 3.6 g/dL Globulin 3.6 g/dL Bilirubin, Total 0.3 mg/dL ALT (SGPT) 15 U/L AST (SGOT) 14 U/L Alkaline Phosphatase 76 IU/L Hemoglobin A1C % 5.3 % WBC 12.6 10 3/uL RBC 5.09 10 6/uL HGB 11.8 g/dL HCT 38.6 % MCV 75.8 fL MCH 23.2 pg MCHC 30.6 g/dL RDW 16.9 % Platelet Count 237 10 3/cmm MPV 9.9 fL Neutrophils 9.70 10 3/uL Lymphocytes 1.4 10 3/uL Monocytes 1.0 10 3/uL Eosinophils 0.3 10 3/uL Basophils 0.1 10 3/uL Neutrophil % 77.2 % Lymphocyte % 10.7 % Monocyte % 8.0 % Eosinophil % 2.6 % Basophils % 1.0 % NRBC % 0 % Test performed on Oct 27, 2019 09:08 Iron 30 mcg/dL Iron Binding Capacity (TIBC) 223 mcg/dl % Iron Saturation 13.4 % UIBC 193 mcg/dL CEA 41.4 ng/mL Impression: 1. Low-grade adenocarcinoma of the distal sigmoid colon, stage IV (T3, N1c, M1b). 2. He underwent left hemicolectomy on 07/03/2014. 3. He had non-ST elevation myocardial infarction at initial presentation, and he did require coronary artery bypass surgery prior to the colon resection. 4. During subsequent follow-up he has had enlarging, FDG avid pulmonary nodules, consistent with metastatic disease. He has opted to have just symptomatic/supportive care. His other medical illnesses include: 5. Hypertension. 6. Hyperlipidemia. 7. Type II diabetes. As of his follow-up visit in October [address] scans had continued to show gradual disease progression. His clinical status had remained stable, and he was still not interested in attempting any chemotherapy. He then failed to return for further follow-up. On 03/15/2018 he presented to the emergency room with pain on the left side of his back. He was diagnosed with acute left sciatica, but further evaluation with a renal CT on 03/28/2018 confirm the presence of a 4 x 5 mm ureteral calculus at the left ureteropelvic junction. The CT scan also showed evidence for further progression of the metastatic colon cancer with increase in size of pulmonary nodules, though the change was not all that dramatic given the interval from the previous study. During his further follow-up he has had ongoing problems with the nephrolithiasis. As of his follow-up visit on 10/27/2019 his clinical status appeared stable, but there had been a significant increase in his CEA level, to 41.4 ng/mL. Restaging CT scans of the chest, abdomen, and pelvis on 11/07/2019 showed significant progression of pulmonary and hepatic metastatic disease and development of bulky intra-abdominal and retroperitoneal lymphadenopathy. The CT findings and the CT images were reviewed with the patient and his daughter per Dr Castillo. He also discussed the clinical implications. He has had significant disease progression, but over time period which is now in excess of 3 years. He is still not overtly symptomatic with it. Left untreated, it will continue to progress, and we would not be able to predict at what point it may become symptomatic. He has previously not been interested in attempting any treatment for it. However, Dr Castillo did discuss 2 treatment options, one of which would be standard chemotherapy regimen, either FOLFOX or FOLFIRI, in combination with Avastin or panitumumab. Either regimen would have a response rate in the range of 50%, with average survival in the range of 2 years. There would be expected side effects with the chemotherapy. The other option would be a trial of therapy with panitumumab as a single modality. The response rate would be much lower, in the range of 30%. It would have the expected side effect of a skin eruption, but very low risk for any other significant toxicity. After some discussion, he indicates that he would be interested in trying the panitumumab without the chemotherapy. Mr. Braga began Vectibix on 11/17/2019. He developed some typical maculopapular rash with pustules and a week to. He has been using triamcinolone cream with just only minimal improvement. Plan: 1. Hold planned treatment for at least 2 weeks to allow recovery time from rash. 2. Cleocin-T gel to rash BID and encouraged to use emoillent to rash at least twice daily. AVOID SUN EXPOSURE. 3. Labs from today were reviewed in detail discussed with Mr. Braga and a copy was given to him. WBC 12.6, hemoglobin 11.8, platelets 207,000 ANC 9700 potassium 4.4 creatinine 1.1 LFTs are normal TSH is 2.01 hemoglobin A1c 5.3. 4. He may continue the triamcinolone cream that he is currently using. 5. He has expressed interest in pursuing a Port-A-Cath if he continues treatment. He states that he is planning to continue the treatment at least according to my daughter . 6. We will plan to see him back in 2 weeks at which time we will determine if he is ready to resume treatment and decide at that time family wants to pursue a Port-A-Cath. 7. In the interim Mr. Braga was instructed to call if he has any questions or problems. Signed By: Philip Oscar-, [facility] Xiang Castillo MD <<Signature on File>>
== END 2019-12-01 08:13 | disposition home or self-care (01) ==
LOC: ONCMED 08:15
PROVIDERS: PCP Family Medicine; Visit Provider Nurse Practitioner
DX: C18.7 Malignant neoplasm of sigmoid colon (principal); C78.7 Secondary malignant neoplasm of liver and intrahepatic bile duct; C78.02 Secondary malignant neoplasm of left lung; L27.0 Generalized skin eruption due to drugs and medicaments taken internally; T45.1X5A Adverse effect of antineoplastic and immunosuppressive drugs, initial encounter; I25.2 Old myocardial infarction; I10 Essential (primary) hypertension; E78.5 Hyperlipidemia, unspecified; E11.9 Type 2 diabetes mellitus without complications; N20.0 Calculus of kidney; Z90.49 Acquired absence of other specified parts of digestive tract; Z87.442 Personal history of urinary calculi; Z95.1 Presence of aortocoronary bypass graft
CPT/HCPCS: 36415; 80053; 83036; 84443; 85025; 99214

== ENCOUNTER 2019-12-15 09:14 | Outpatient (CLI) | payer MEDICARE, OTHER, SELFPAY ==
[2019-12-15 10:00] LABS: Basophils # 0.1 10^3/uL (0.0-0.1); Basophils % 0.8 %; Eosinophils # 0.3 10^3/uL (0.0-0.8); Eosinophils % 2.8 %; Hematocrit 44.4 % (42.0-52.0); Hemoglobin 13.9 g/dL (11.7-16.6); Lymphocytes # 1.4 10^3/uL (0.8-4.8); Lymphocytes % 12.7 %; Mean Corpuscular HGB Conc 31.3 g/dL (30.0-36.0); Mean Corpuscular Hemoglobin 23.4 pg (28.0-34.0); Mean Corpuscular Volume 74.7 fL (80-94); Mean Platelet Volume 9.5 fL (7.4-10.4); Monocytes # 1.1 10^3/uL (0.2-0.9); Monocytes % 10.1 %; Neutrophils # 8.18 10^3/uL (1.8-7.7); Neutrophils % 72.9 %; Nucleated Red Blood Cells % 0 %; Platelet Count 290 10^3/cmm (130-400); Red Blood Count 5.94 10^6/uL (4.1-5.3); Red Cell Distribution Width 18.5 % (12.1-15.1); White Blood Count 11.2 10^3/uL (4.0-10.0)
[2019-12-15 10:21] LABS: Alanine Aminotransferase 14 U/L (0-41); Albumin Level 3.8 g/dL (3.5-5.2); Alkaline Phosphatase 87 IU/L (40-130); Anion Gap 18.2 (5-19); Aspartate Amino Transferase 18 U/L (0-40); Blood Urea Nitrogen 21 mg/dL (8-23); Calcium 9.4 mg/dL (8.5-10.5); Carbon Dioxide 20 mmol/L (22-29); Chloride 100 mmol/L (98-107); Glomerular Filtration Rate 54.6 mL/min (90-130); Glucose 151 mg/dL (65-115); Osmolality Calculated 278 mOsm/kg (285-295); Potassium 4.2 mmol/L (3.5-5.1); Sodium 134 mmol/L (136-145); Total Bilirubin 0.5 mg/dL (0.15-1.2); Total Protein 7.8 g/dL (6.6-8.7)
[2019-12-15 11:13] LABS: Carcinoembryonic Antigen 19.1 ng/mL (0.0-4.7)
[2019-12-15] MEDS: sodium chloride 0.9% 1,000 ML 999 ML IV (11:44)
--- NOTE | 2019-12-15 12:52 | CT_ITS ---
WS: [id number] CT ABDOMEN PELVIS TECHNIQUE: Noncontrast CT of the abdomen and pelvis with coronal and sagittal reformatted images. CLINICAL INFORMATION: L FLANK PAIN COMPARISON: CT chest abdomen pelvis November 07, 2019 DLP: 1931.[address] scans at [facility] use at least one of these dose optimization techniques: automat ed exposure control; mA and/or kV adjustment per patient size (includes targeted exams where dose is matched to clinical indication); or iterative reconstruction. FINDINGS: Multiple metastatic lesions partially visualized in the lung bases. Largest lesion in the left lower lobe measuring 4.7 x 4.8 cm. Extensive calcified upper abdominal and periaortic lymphadenopathy with calcifications. Largest left periaortic lymph node measures 2.6 cm. Calcified hepatic lesions largest in the left hepatic lobe appears stable from previous. Normal GE junction. Additional smaller right hepatic lesions. Noncontrast spleen is normal. Mild fat ty atrophy of the pancreas. Normal caliber abdominal aorta. Incidental left renal cysts. Both adrenal glands are normal. No obstructing renal or ureteral calculi. No hydronephrosis. Prominent prostate m easuring 4.2 CM. No inguinal lymphadenopathy. Mild sigmoid constipation. No evidence of high-grade sm all or large bowel obstruction. Evidence of prior sigmoid anastomosis. CT/CT kidney stone [id number] IMPRESSION: 1. No obstructing renal or ureteral calculi. No hydronephrosis. 2. Incidental left renal cysts are unchanged. 3. Multiple metastatic lesions partially visualized in the lung bases the larg est in the left lower lobe measuring 4.7 x 4.8 cm. 4. Calcified hepatic lesions largest in the left hepatic lobe similar to previ ous. 5. Upper abdominal and periaortic lymphadenopathy similar to previous. Largest left periaortic lymph node measures 3.6 cm. Enlarged retrocrural lymph nodes.
[2019-12-15] MEDS: sodium chloride 0.9% 250 ML 999 ML IV (14:30)
--- NOTE | 2019-12-18 12:46 | ONC FU_ITS ---
Dr. Castillo Patient Follow-Up Note Patient: Gulshan Braga Unit #: [id number]: 1950 Dicatated By: Xiang Castillo M.D.Date of Visit:Dec 15, 2019 Onc Med Follow-up/Prog Note Chief Complaint: Colon cancer. 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 He had presented with influenza pneumonia and non-ST elevation NH. During anticoagulation in preparation for coronary artery bypass graft surgery he develop significant rectal bleeding. A CT of the abdomen and pelvis on 05/11/2014 showed a mass in the distal sigmoid colon with soft tissue stranding, but no evidence of disease in the liver. There were 2 discrete nodules in the left lower lobe up to 1.1 cm with a patchy foci in the lingula and the left lower lobe. He required a cardiac bypass graft surgery on 05/19/2014. Preoperative staging PET/CT was reportedly performed, but results were not available. He then underwent left hemicolectomy on 07/03/2014. His surgical pathology revealed 6 x 5 cm low-grade adenocarcinoma, invading through muscularis propria into the subserosal adipose tissue. Two tumor deposits were present on the pericolonic adipose tissue. None of the 24 lymph nodes harvested were involved with metastatic disease. No lymphovascular or perineural invasion was identified. Luminal obstruction of more than 70% was present. Margins were negative. Thus, his disease was pathologic stage at least IIIB (pT3, N1c, MX). Mismatch repair analysis was normal, without defect identified. The patient had relocated to [place] from [place], to be closer to his daughter. He moved to the [facility] in August 2014 and established care with the [facility] in [place]. His para operator is Dr. Lomas. He was first seen by Dr. Vivas on 03/27/2015. His case was presented on the tumor board, consensus was to offer an adjuvant chemotherapy. In interim he had a CT of the chest/abdomen/pelvis on 04/10/2014 which showed increase in the two left lung nodules to 1.8 and 1.69 cm, concerning for metastatic disease. PET/CT on 05/05/2015 confirmed FDG positive two nodules in the left lung. A CT-guided biopsy on 06/11/2015 showed suspicious cells for malignancy, with only scant specimen available. Thus his disease was stage IV (M1b). Palliative FOLFOX and Avastin was recommended and was planned, but the patient decided against palliative chemotherapy. In the meantime, K-kylah mutation was performed on the original biopsy, and mutations were not detected. He was then followed on observation/symptomatic management. Restaging CT scans of the chest, abdomen, and pelvis on 07/24/2016 showed increasing size left pulmonary nodules/mass with the largest mass of the left lung base measuring 3.1 x 2.6 cm. Overall, four nodules were present with continued slow progression since April 2015 study. I had seen him for a follow-up visit in October 2016. He was still not interested in attempting any chemotherapy treatment, and he then failed to return for further follow-up. On 03/15/2018 he presented to the emergency room with back pain. He had evaluation at that time with lumbar spine CT, which showed no acute findings. He was diagnosed with acute left-sided sciatica and treated symptomatically. He returned to the emergency room on 03/28/2018. His renal CT at that time showed a partially obstructing 4 x 5 mm ureteral calculus at the left ureteropelvic junction. Other findings included prominent portal and celiac lymph nodes, a mass adjacent to the caudate lobe of the liver measuring 2.3 cm, and a low-attenuation lesion in the hepatic dome which appeared suspicious for a metastatic lesion. Also noted were enlarging pulmonary masses in the left lower lobe. I had seen him for a follow-up visit on 04/13/2018. At that point I did request further evaluation with a next generation sequencing study. It showed no actionable mutations. The tumor was noted to be MSI stable. He continued observation/expectant management for the colon cancer. However, he was still having problems related to the kidney stone. He had continued follow-up with Dr. Mckeon and on 06/14/2018 he underwent extracorporeal shockwave lithotripsy for the left distal ureteral stone. He required temporary ureteral stent placement. He had no complications with the procedure, and the stent was later removed. His other medical illnesses include hypertension, hyperlipidemia, type II diabetes, and coronary artery disease. He has a history of smoking a pack and a half of cigarettes daily for 30 years, but he quit smoking more than 10 years ago. INTERIM HISTORY: At his follow-up visit on 04/29/2019 his CEA level had increased to 21.7 ng/mL compared to 8.9 ng/mL in April 2018. However, he was still not interested in considering any treatment. He was then seen for a follow-up visit again on 10/27/2019. At that point his CEA had further increased to 41.4 ng/mL. He then had restaging CT scans of the chest, abdomen, and pelvis on 11/07/2019. Those studies showed significant progression of metastatic disease with increasing pulmonary nodules in both lungs, the largest in the left upper lobe measuring 3.5 x 2.9 cm and in the left lower lobe measuring 4.6 x 4.9 cm. There was progression of metastatic lesions in the right hepatic lobe, the largest measuring 4.3 x 3.4 cm in the dome of the liver and 4.8 cm in the right hepatic lobe laterally. Also noted were multiple enlarged partially calcified lymph nodes in the love hepatis and celiac axis, bulky enlarged retrocrural and gastroesophageal lymph nodes, and bulky periaortic and retroperitoneal lymph nodes, all new from previous studies. With those findings he did opt to begin a trial of therapy with panitumumab as a single agent. He began cycle 1 on 11/17/2019. His further treatment has been on hold due to a severe skin eruption, which developed despite having been given dexamethasone prophylaxis. He is seen today for an unplanned visit. Over the past 3 days he has had pain in the left lower back area which is severe enough that he is not been able to sleep. Yesterday he had recurrent nausea/vomiting. Today he is still nauseated, but thus far he has had no further vomiting. His energy is very low. He has no activity. ECOG score is 3. He has not had fever. He does have some chills and sweating. He is short of breath with activity. He has occasional hacking cough. He does not complain of chest pain. He has had constipation. He is having urinary frequency and nocturia. He has no other joint or bone pain. He does not complain of headache. He is lightheaded if he gets up too fast. He has no focal neurologic symptoms. Medications: Aspirin 1 Tablet (of 81 mg) Tablet, chewable Oral daily, glipiZIDE 1 Tablet (of 5 mg) Oral b.i.d., Iron Supplement 1 Tablet (of 325 (65 fe) mg) Oral b.i.d., Lisinopril 1 Tablet (of 5 mg) Oral b.i.d., MetFORMIN HCl 1 Tablet (of 850 mg) Oral b.i.d., Metoprolol Tartrate 1 Tablet (of 25 mg) Oral b.i.d., Rosuvastatin Calcium 0.5 Tablet Oral at bedtime, Vitamin D3 1 (2000 Units) Tablet Oral daily Allergies: Penicillin V Potassium Review of Systems: Constitutional - His energy is very low. He has no activity. Appetite lately has been poor. He has not had fever. He does have chills and sweating. ECOG score is 3, ENMT - No sinus congestion/drainage. No mouth sores. No sore throat or difficulty swallowing, Hematologic/Lymphatic - No abnormal bruising or bleeding, Respiratory - He has shortness of breath with activity. He has occasional hacking cough. No pleuritic pain or hemoptysis, Cardiovascular - No angina pain. No palpitations, Gastrointestinal - He has been having nausea/vomiting. His acid reflux is better with medication. He has constipation. He is having pain in his left lower back/left flank area, severe enough that he cannot lie on his left side. No blood in the stool or black stools, Genitourinary (M) - No dysuria or hematuria. He has urinary frequency and nocturia. No urgency or incontinence, Musculoskeletal - No other joint or bone pain, Integumentary - He has a severe skin eruption, but it is getting better, Neurologic - No headache. He is lightheaded if he gets up too fast. No numbness or tingling. No other focal neurologic symptoms, Psychiatric - No anxiety or depression. He is having difficulty sleeping. Vital Signs: Performed on Dec 15, 2019 10:46 Height - 67.00 in Weight - 219 lbs (LOW) BSA - 2.10 sq.m BMI - 34.30 (HIGH) Temperature - 98.4 F Pulse - 97 /min Respiration - 18 /min BP - 131/82 mm(hg) O2 Sat - 97 % Pain - 0 Physical Examination: Constitutional - He appears generally weak, Eyes - Sclerae nonicteric. Conjunctivae clear, ENMT - No lesions noted in the oral cavity, Hematologic/Lymphatic - No cervical, clavicular, or axillary adenopathy, Respiratory - Lungs sound clear, Cardiovascular - Heart rhythm is irregular. There is a II/ systolic murmur. There is no gallop or rub noted, Abdomen - Soft. Liver and spleen are not enlarged. There is no abdominal mass or ascites noted and there is no inguinal adenopathy, Back/Spine - There is tenderness in the area of the costovertebral angle on the left side, Extremities - No edema, Integumentary - He has a generalized maculopapular skin eruption, but it is improving, Neurologic - No focal neurologic deficits noted. Lab/Imaging: Test performed on Dec 15, 2019 09:48 Sodium 134 mmol/L Potassium 4.2 mmol/L Chloride 100 mmol/L CO2 20 mmol/L Anion Gap 18.2 BUN 21 mg/dL Creatinine 1.3 mg/dL Cr Clearance (Est) 78.4300 mL/min eGFR 54.6 mL/min Glucose 151 mg/dL Calcium 9.4 mg/dL Protein, Total 7.8 g/dL Albumin 3.8 g/dL Globulin 4.0 g/dL Bilirubin, Total 0.5 mg/dL ALT (SGPT) 14 U/L AST (SGOT) 18 U/L Alkaline Phosphatase 87 IU/L WBC 11.2 10 3/uL RBC 5.94 10 6/uL HGB 13.9 g/dL HCT 44.4 % MCV 74.7 fL MCH 23.4 pg MCHC 31.3 g/dL RDW 18.5 % Platelet Count 290 10 3/cmm MPV 9.5 fL Neutrophils 8.18 10 3/uL Lymphocytes 1.4 10 3/uL Monocytes 1.1 10 3/uL Eosinophils 0.3 10 3/uL Basophils 0.1 10 3/uL Neutrophil % 72.9 % Lymphocyte % 12.7 % Monocyte % 10.1 % Eosinophil % 2.8 % Basophils % 0.8 % NRBC % 0 % CEA 19.1 ng/mL Impression: 1. Low-grade adenocarcinoma of the distal sigmoid colon, stage IV (T3, N1c, M1b). 2. He underwent left hemicolectomy on 07/03/2014. 3. He had non-ST elevation myocardial infarction at initial presentation, and he did require coronary artery bypass surgery prior to the colon resection. 4. During subsequent follow-up he has had enlarging, FDG avid pulmonary nodules, consistent with metastatic disease. He has opted to have just symptomatic/supportive care. His other medical illnesses include: 5. Hypertension. 6. Hyperlipidemia. 7. Type II diabetes. As of his follow-up visit in October [address] scans had continued to show gradual disease progression. His clinical status had remained stable, and he was still not interested in attempting any chemotherapy. He then failed to return for further follow-up. On 03/15/2018 he presented to the emergency room with pain on the left side of his back. He was diagnosed with acute left sciatica, but further evaluation with a renal CT on 03/28/2018 confirm the presence of a 4 x 5 mm ureteral calculus at the left ureteropelvic junction. The CT scan also showed evidence for further progression of the metastatic colon cancer with increase in size of pulmonary nodules, though the change was not all that dramatic given the interval from the previous study. During his further follow-up he has had ongoing problems with the nephrolithiasis. As of his follow-up visit on 10/27/2019 his clinical status appeared stable, but there had been a significant increase in his CEA level, to 41.4 ng/mL. Restaging CT scans of the chest, abdomen, and pelvis on 11/07/2019 showed significant progression of pulmonary and hepatic metastatic disease and development of bulky intra-abdominal and retroperitoneal lymphadenopathy. With that finding, he did agree to trial of therapy with panitumumab as a single agent. He began his initial infusion of panitumumab on 11/17/2019. His further treatment has been on hold due to a severe skin eruption, which developed despite prophylactic dexamethasone. The skin eruption now is showing gradual resolution. However, he comes in now with 3-day history of pain in the left lower back and nausea/vomiting. The symptoms are suspicious for recurrent nephrolithiasis. There has been a significant decline in the CEA level, suggesting that he may be showing response to the treatment. Plan: He is being given IV hydration and IV antiemetics today. I am scheduling a renal protocol CT abdomen/pelvis. He will have further evaluation as indicated. At least for now is treatment will remain on hold, but with the decline in the CEA level I will consider restarting at a reduced dosage, assuming he is agreeable. Signed By: Xiang Castillo M.D. <<Signature on File>>
== END 2019-12-15 09:15 | disposition home or self-care (01) ==
PROVIDERS: PCP Family Medicine; Visit Provider Internal Medicine Medical Oncology
DX: C18.6 Malignant neoplasm of descending colon (principal); M54.5 Low back pain; R11.2 Nausea with vomiting, unspecified; R21 Rash and other nonspecific skin eruption; T45.1X5D Adverse effect of antineoplastic and immunosuppressive drugs, subsequent encounter; I25.2 Old myocardial infarction; I10 Essential (primary) hypertension; E78.5 Hyperlipidemia, unspecified; E11.9 Type 2 diabetes mellitus without complications; Z90.49 Acquired absence of other specified parts of digestive tract
CPT/HCPCS: 74176; 80053; 82378; 85025; 96361; 96365; 96367; 99214; J2405; J7030; J7050

== ENCOUNTER 2019-12-16 08:13 | Outpatient (CLI) | payer MEDICARE, OTHER, SELFPAY ==
[2019-12-16] MEDS: sodium chloride 0.9% 1,000 ML 999 ML IV (09:06)
== END 2019-12-16 08:14 | disposition home or self-care (01) ==
LOC: ONCMED 08:17
PROVIDERS: PCP Family Medicine; Visit Provider Nurse Practitioner
DX: C18.7 Malignant neoplasm of sigmoid colon (principal); C77.2 Secondary and unspecified malignant neoplasm of intra-abdominal lymph nodes; C78.00 Secondary malignant neoplasm of unspecified lung; C78.7 Secondary malignant neoplasm of liver and intrahepatic bile duct
CPT/HCPCS: 96361; 96374; J2405; J7030

== ENCOUNTER 2019-12-21 15:19 | Inpatient (IN) | payer MEDICARE, OTHER, SELFPAY ==
[2019-12-21] VITALS (9 sets, daily range): BP systolic 103–138; BP diastolic 50–81; PULSE 88–110; RESP 18–22; TEMP 36.7–36.8; O2SAT 92–98; BMI 34.2
--- NOTE | 2019-12-21 15:33 | ED_ITS ---
HPI - Fall General: Chief Complaint: Fall Stated Complaint: FALL, HIP PAIN Time Seen by Provider: 12/21/19 15:22 History of Present Illness: HPI Narrative: 69-year-old male was at home he went to stand up got dizzy lightheaded and fell. He states he never had complete loss of consciousness he thinks he may have hit his head most of his complaints was to his right hip. He did recently start some narcotic pain medication and some sleep medications. He has had problems lightheadedness and dizziness with postural changes in the past. He has a history of colon cancer and has had a resection of his large bowel. He is still receiving treatment his last treatment 3 weeks ago he has had difficulty with nausea vomiting recently has not been maintaining his good of food or fluid intake. MD complaint: fall Onset (ago): hour(s) Fall from: standing Fall witnessed: yes, by family Place fall occurred: home Loss of consciousness: None Prolonged down time: no Symptoms prior to fall: lightheadedness and dizziness Location of injury: head Location of injury - extremities: Right: lower leg Severity: moderate Quality: aching Associated symptoms-after fall: Reports difficulty walking and weakness; Denies abdominal pain, chest pain, confusion, headache(s), hematuria, lightheadedness, neck pain, numbness, short of breath or vertigo Review of Systems Const: Denies: fever(s), chills, body aches, change in appetite, fatigue or malaise ENMT: Denies: throat pain, ear or mastoid pain, nasal discharge or nasal congestion Card: Denies: chest pain or lightheadedness Resp: Denies: dyspnea, productive cough or non-productive cough GI: Denies: abdominal pain : Denies: hematuria Musc: Denies: neck pain Skin/Breast: Denies: rash or pruritus Neuro: Reports: difficulty walking; Denies: headache(s), vertigo or confusion PFSH ED PFSH: Medical History CAD (coronary artery disease) Cancer COLON CHF (congestive heart failure), NYHA class I Diabetes Dyslipidemia Fatigue Hypertension Ischemic cardiomyopathy Metastasis PRIYA (obstructive sleep apnea) PVCs (premature ventricular contractions) Shortness of breath Type 2 diabetes mellitus Surgical History Hx of CABG 2014 Family History Other CAD (coronary artery disease) Myocardial infarction Social History Smoking and tobacco status: former smoker Quit status (tobacco): has quit using tobacco Year quit tobacco: 2004 Alcohol intake: never Physical Exam Const: COMMON NORMALS: no acute distress GENERAL APPEARANCE: cooperative and comfortable ORIENTATION/CONSCIOUSNESS: Yes oriented to person, Yes oriented to place and Yes oriented to time HENMT: COMMON NORMALS: normocephalic, atraumatic and hearing grossly normal bilaterally HEAD & SCALP: normocephalic and atraumatic Eye: COMMON NORMALS: Equal, round and reactive pupils present, EOMs intact bilaterally, conjunctivae normal and no scleral icterus CONJUNCTIVA: Yes conjunctivae normal PUPIL: Yes Equal, round and reactive pupils present Neck/C-Spine: COMMON NORMALS: full ROM, no lymphadenopathy, supple and no JVD Lymph: LYMPHATIC: no lymphadenopathy noted and no lymphedema noted Resp: COMMON NORMALS: normal respiratory effort, No retractions, No use of accessory muscles and clear to auscultation bilaterally AUSCULTATION: clear to auscultation bilaterally Cardio: COMMON NORMALS: no JVD, regular rate, regular rhythm and No murmurs present (Cardio) RATE: regular rate RHYTHM: regular rhythm GI: COMMON NORMALS: Soft to palpation and No hepatosplenomegaly present AUSCULTATION: Yes normoactive bowel sounds PALPATION: Yes Soft to palpation, No Tenderness to palpation present (GI), No Guarding due to palpation present (GI) and Yes No hepatosplenomegaly present Extremity: COMMON NORMALS: normal to inspection, capillary refill normal, no clubbing, cyanosis or edema, no calf tenderness and no pedal edema Neuro: SENSORIUM/ORIENTATION: Yes oriented to person, Yes oriented to place and Yes oriented to time Skin: COMMON NORMALS: no rashes or lesions noted GENERAL SKIN EXAM: no rashes or lesions noted Course Vital Signs: Vital signs: Vital Signs Temperature 98.2 F 12/23/19 14:50 Pulse Rate 78 12/23/19 14:50 Respiratory Rate 18 12/23/19 14:50 Blood Pressure 117/74 12/23/19 14:50 Pulse Oximetry 96 12/23/19 14:50 MDM - Fall MDM Narrative: Medical decision making narrative: Patient has persistent nausea vomiting and hypotension. Despite IV fluids patient remains hypotensive. Does have an elevated white count and meets criteria for sepsis but there is no evidence of infection I think this elevated white count comes from his severe d ehydration. Discussed Dr. Gutierrez will admit the patient to ICU. Lab Data: Attestation: I reviewed the patient's lab results. Labs: Lab Results 12/21/19 12/21/19 12/21/19 Range/Units 16:34 16:34 16:34 WBC 15.2 H (4.0-10.0) 10^3/ uL RBC 5.58 H (4.1-5.3) 10^6/u L Hgb 13.1 (11.7-16.6) g/dL Hct 43.0 (42.0-52.0) % MCV 77.1 L (80-94) fL MCH 23.5 L (28.0-34.0) pg MCHC 30.5 (30.0-36.0) g/dL RDW 18.2 H (12.1-15.1) % Plt Count 278 (130-400) 10^3/c mm MPV 9.7 (7.4-10.4) fL Neut % (Auto) 79.2 % Lymph % (Auto) 8.4 % [place] % (Auto) 10.9 % Eos % (Auto) 0.3 % Baso % (Auto) 0.7 % Neut # (Auto) 12.00 H (1.8-7.7) 10^3/u L Lymph # (Auto) 1.3 (0.8-4.8) 10^3/u L [place] # (Auto) 1.7 H (0.2-0.9) 10^3/u L Eos # (Auto) 0.1 (0.0-0.8) 10^3/u L Baso # (Auto) 0.1 (0.0-0.1) 10^3/u L Nucleated RBC % (a uto) 0 % Nucleated RBCs # 0.0 /100WBC D-Dimer (0-0.59) ug/mIFE U Sodium 134 L (136-145) mmol/L Potassium 4.7 (3.5-5.1) mmol/L Chloride 95 L (98-107) mmol/L Carbon Dioxide 22 (22-29) mmol/L Anion Gap 21.7 H (5-19) BUN 37 H (8-23) mg/dL Creatinine 3.3 H (0.7-1.2) mg/dL GFR Calculation 18.6 L (90-130) mL/min Glucose 115 (65-115) mg/dL Calculated Osmolal ity 288 (285-295) mOsm/k g Lactic Acid (0.5-2.2) mmol/L Calcium 9.4 (8.5-10.5) mg/dL Iron 22 L (59-158) ug/dL TIBC 178 mcg/dl % Saturation 12.3 L (20-50) % Unsat Iron Binding 156 (112-347) ug/dL Total Bilirubin 0.8 (0.15-1.2) mg/dL AST 16 (0-40) U/L ALT 11 (0-41) U/L Alkaline Phosphata se 90 (40-130) IU/L NT-Pro-B Natriuret Pep (0-125) pg/mL Total Protein 7.8 (6.6-8.7) g/dL Albumin 3.7 (3.5-5.2) g/dL Globulin 4.1 (1.3-4.6) g/dL Procalcitonin 0.23 (0-0.5) ng/mL TSH (0.27-4.20) uIU/ mL Random Cortisol (2.47-19.5) ug/m L 12/21/19 12/21/19 12/21/19 Range/Units 16:34 16:34 16:34 WBC (4.0-10.0) 10^3/ uL RBC (4.1-5.3) 10^6/u L Hgb (11.7-16.6) g/dL Hct (42.0-52.0) % MCV (80-94) fL MCH (28.0-34.0) pg MCHC (30.0-36.0) g/dL RDW (12.1-15.1) % Plt Count (130-400) 10^3/c mm MPV (7.4-10.4) fL Neut % (Auto) % Lymph % (Auto) % [place] % (Auto) % Eos % (Auto) % Baso % (Auto) % Neut # (Auto) (1.8-7.7) 10^3/u L Lymph # (Auto) (0.8-4.8) 10^3/u L [place] # (Auto) (0.2-0.9) 10^3/u L Eos # (Auto) (0.0-0.8) 10^3/u L Baso # (Auto) (0.0-0.1) 10^3/u L Nucleated RBC % (a uto) % Nucleated RBCs # /100WBC D-Dimer 2.26 H (0-0.59) ug/mIFE U Sodium (136-145) mmol/L Potassium (3.5-5.1) mmol/L Chloride (98-107) mmol/L Carbon Dioxide (22-29) mmol/L Anion Gap (5-19) BUN (8-23) mg/dL Creatinine (0.7-1.2) mg/dL GFR Calculation (90-130) mL/min Glucose (65-115) mg/dL Calculated Osmolal ity (285-295) mOsm/k g Lactic Acid (0.5-2.2) mmol/L Calcium (8.5-10.5) mg/dL Iron (59-158) ug/dL TIBC mcg/dl % Saturation (20-50) % Unsat Iron Binding (112-347) ug/dL Total Bilirubin (0.15-1.2) mg/dL AST (0-40) U/L ALT (0-41) U/L Alkaline Phosphata se (40-130) IU/L NT-Pro-B Natriuret Pep (0-125) pg/mL Total Protein (6.6-8.7) g/dL Albumin (3.5-5.2) g/dL Globulin (1.3-4.6) g/dL Procalcitonin (0-0.5) ng/mL TSH 0.86 (0.27-4.20) uIU/ mL Random Cortisol 27.86 H (2.47-19.5) ug/m L 12/21/19 12/21/19 Range/Units 16:34 16:34 WBC (4.0-10.0) 10^3/ uL RBC (4.1-5.3) 10^6/u L Hgb (11.7-16.6) g/dL Hct (42.0-52.0) % MCV (80-94) fL MCH (28.0-34.0) pg MCHC (30.0-36.0) g/dL RDW (12.1-15.1) % Plt Count (130-400) 10^3/c mm MPV (7.4-10.4) fL Neut % (Auto) % Lymph % (Auto) % [place] % (Auto) % Eos % (Auto) % Baso % (Auto) % Neut # (Auto) (1.8-7.7) 10^3/u L Lymph # (Auto) (0.8-4.8) 10^3/u L [place] # (Auto) (0.2-0.9) 10^3/u L Eos # (Auto) (0.0-0.8) 10^3/u L Baso # (Auto) (0.0-0.1) 10^3/u L Nucleated RBC % (a uto) % Nucleated RBCs # /100WBC D-Dimer (0-0.59) ug/mIFE U Sodium (136-145) mmol/L Potassium (3.5-5.1) mmol/L Chloride (98-107) mmol/L Carbon Dioxide (22-29) mmol/L Anion Gap (5-19) BUN (8-23) mg/dL Creatinine (0.7-1.2) mg/dL GFR Calculation (90-130) mL/min Glucose (65-115) mg/dL Calculated Osmolal ity (285-295) mOsm/k g Lactic Acid 1.7 (0.5-2.2) mmol/L Calcium (8.5-10.5) mg/dL Iron (59-158) ug/dL TIBC mcg/dl % Saturation (20-50) % Unsat Iron Binding (112-347) ug/dL Total Bilirubin (0.15-1.2) mg/dL AST (0-40) U/L ALT (0-41) U/L Alkaline Phosphata se (40-130) IU/L NT-Pro-B Natriuret Pep 1471 H (0-125) pg/mL Total Protein (6.6-8.7) g/dL Albumin (3.5-5.2) g/dL Globulin (1.3-4.6) g/dL Procalcitonin (0-0.5) ng/mL TSH (0.27-4.20) uIU/ mL Random Cortisol (2.47-19.5) ug/m L Discharge Plan Discharge Patient Disposition: Admitted As Inpatient Admit Provider: Bro Gutierrez Clinical Impression: JEANETH (acute kidney injury), Orthostatic hypotension, Cancer, Type 2 diabetes mellitus, Metabolic acidosis, Sepsis Condition: Stable Referrals: Janina Clinton DO [Primary Care Provider] - 12/28/19 10:00 am (You have a follow up appointment on ThursdayDecember 27 at 10:00 with Geovanna) Discharge Diet: Cardiac and GI Soft Discharge Activity: Resume usual activity Patient Instructions: Sucralfate (By mouth), Baclofen (By mouth), Laxative, Stool Softeners (By mouth), Ondansetron (By mouth), Heart Failure (DC), Acute Nausea and Vomiting (GEN), CHF Stoplight Additional Instructions: Please continue taking Protonix and Carafate which will help you with your nausea and vomiting. Also take Zofran as needed for vomiting. Baclofen has been added to your medication list because of persistent hiccups. If you have any dizziness or increase sleeping you can discontinue the baclofen. Please follow-up with your primary care provider and Dr. Castillo on the set appointments. Interventions: ED Discharge Assessment Last Done: 12/21/19 19:35 ED Charges Last Done: 12/21/19 19:35 Discharge Date/Time: 12/21/19 19:36 Coding Level of Care Code ED Early Interventionist for Chg Fwd Exam Comprehensive
--- NOTE | 2019-12-21 15:45 | XR_ITS ---
WS: [id number] EXAM: XR cervical spine 3V* [id number] DATE OF EXAMINATION: 12/21/2019, 1551 hours COMPARISON: None. HISTORY: 69 years old with neck pain status post fall. FINDINGS: Cervical vertebral bodies of C1-C6 are of normal height. C7 is not evaluated. Predens space and preve rtebral soft tissue plane are normal. Multilevel degenerative spondylosis changes are seen throughout the cervical spine with both anterior and slight posterior spurring. No fracture or subluxation is i dentified. C1-C2 alignment is normal. No fracture or subluxation malalignment is noted. Slight caroti d calcifications bilaterally. Postop sternotomy wires from presumed coronary artery bypass. Extensive dental caries. 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 No fracture se en. Incompletely evaluated cervical spine. Either additional imaging with a swi mmer's view or CT recommended for further evaluation.
--- NOTE | 2019-12-21 15:45 | CT_ITS ---
WS: [id number] EXAM: CT head wo con* [id number] DATE OF EXAMINATION: 12/21/2019, 1713 hours COMPARISON: None. HISTORY: 69 years old with dizziness for the last 3 days. Fell today. TECHNIQUE: Thin slice imaging obtained through the brain. Viewed in brain, subdural and bone window with reconst ructions. DLP: 916.[address] scans at [facility] use at least one of these dose optimization techniques: automat ed exposure control; mA and/or kV adjustment per patient size (includes targeted exams where dose is matched to clinical indication); or iterative reconstruction. FINDINGS: There are generalized changes of age-related atrophy. Lopez-white differentiation is normal. There are slight changes of decreased attenuation within the white matter felt to represent sequelae from gaming cashier oscar small vessel white matter microangiopathic change. No findings of hemorrhage, hydrocephalus, mass , mass effect or abnormal extra-axial fluid collection is seen. Old white matter infarct involving t he left frontal lobe region. Additional chronic white matter infarct in the supraventricular right fr ontal lobe as well. Extracalvarial soft tissues are unremarkable. No acute bony abnormality is demons trated. Paranasal sinuses show minimal chronic sinusitis changes. CT/CT head wo con* [id number] IMPRESSION: Atrophy and slight chronic white matter changes. No acute intracranial process. 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
--- NOTE | 2019-12-21 15:45 | XR_ITS ---
WS: [id number] EXAM: AP PELVIS AND 2 VIEWS OF THE RIGHT HIP DATE OF EXAMINATION: 12/21/2019, 1602 hours COMPARISON: None. HISTORY: Patient is 69 years old with hip pain status post fall. FINDINGS: Overall bone density is fairly normal. Scattered changes of arthritis are seen in the lower lumbar sp ine. Both sacroiliac joints are normal in appearance. No fracture involving the bony pelvis is demons trated. The right hip joint is fairly normal in appearance. No fracture or dislocation is seen. No so ft tissue abnormality noted. XR/XR hip RT 2-3V wo/w pel* [id number] IMPRESSION: Arthritis lower lower spine. No acute bony abnormality involving the bony pelvi s. No abnormality involving the right hip.
--- NOTE | 2019-12-21 16:39 | CT_ITS ---
WS: [id number] EXAM: CT cervical spin wo con* [id number] DATE OF EXAMINATION: 12/21/2019, 1716 hours COMPARISON: None. HISTORY: 69 years old with fall injury today. Complaining of head and neck pain. TECHNIQUE: Transaxial computed tomography was obtained through the cervical spine and viewed in multi ple windows with reconstructions. DLP: 898.[address] scans at [facility] use at least one of these dose optimization techniques: automat ed exposure control; mA and/or kV adjustment per patient size (includes targeted exams where dose is matched to clinical indication); or iterative reconstruction. FINDINGS: Bone density appears minimally decreased. Skull base is intact. Mastoid air cells are pneumatized and well aerated. Slight arthritis at the C1-C2 articulation at the level of the dens. Predens space and prevertebral soft tissue plane are normal. Multilevel degenerative spondylosis changes are identifie d with both anterior and posterior spurring. No fracture or subluxation abnormality is seen. Findings of spinal canal stenosis C2-3, C3-4, C4-5 and C5-6 levels. No paraspinal soft tissue abnormality is seen. Carotid calcified plaque bilaterally. There are several pulmonary nodules within the right upper lobe and also a nodule in the left upper l obe. One of the nodules within the right chest is slightly spiculated about 8 mm in size. Follow-up n onemergent CT of the chest recommended for further evaluation for additional pulmonary nodules. CT/CT cervical spin wo con* [id number] IMPRESSION: Extensive changes of arthritis in the cervical spine with multiple levels of ce ntral canal stenosis. No fracture or subluxation malalignment. Multiple pulmonary nodules. Follow-up nonemergent CT of the chest recommended.
[2019-12-21 16:42] LABS: Basophils # 0.1 10^3/uL (0.0-0.1); Basophils % 0.7 %; Eosinophils # 0.1 10^3/uL (0.0-0.8); Eosinophils % 0.3 %; Hemoglobin 13.1 g/dL (11.7-16.6); Lymphocytes # 1.3 10^3/uL (0.8-4.8); Lymphocytes % 8.4 %; Mean Corpuscular HGB Conc 30.5 g/dL (30.0-36.0); Mean Corpuscular Hemoglobin 23.5 pg (28.0-34.0); Mean Corpuscular Volume 77.1 fL (80-94); Mean Platelet Volume 9.7 fL (7.4-10.4); Monocytes # 1.7 10^3/uL (0.2-0.9); Monocytes % 10.9 %; Neutrophils % 79.2 %; Nucleated Red Blood Cells % 0 %; Platelet Count 278 10^3/cmm (130-400); Red Blood Count 5.58 10^6/uL (4.1-5.3); Red Cell Distribution Width 18.2 % (12.1-15.1); White Blood Count 15.2 10^3/uL (4.0-10.0)
[2019-12-21] MEDS: ondansetron 2 mg/ML SDV 2 mL 4 MG IVP (16:46)
[2019-12-21] MEDS: sodium chloride 0.9% 1,000 ML 999 ML IV (16:47)
[2019-12-21 17:09] LABS: Alanine Aminotransferase 11 U/L (0-41); Albumin Level 3.7 g/dL (3.5-5.2); Alkaline Phosphatase 90 IU/L (40-130); Anion Gap 21.7 (5-19); Aspartate Amino Transferase 16 U/L (0-40); Blood Urea Nitrogen 37 mg/dL (8-23); Calcium 9.4 mg/dL (8.5-10.5); Carbon Dioxide 22 mmol/L (22-29); Chloride 95 mmol/L (98-107); Globulin 4.1 g/dL (1.3-4.6); Glomerular Filtration Rate 18.6 mL/min (90-130); Glucose 115 mg/dL (65-115); Osmolality Calculated 288 mOsm/kg (285-295); Potassium 4.7 mmol/L (3.5-5.1); Sodium 134 mmol/L (136-145); Total Bilirubin 0.8 mg/dL (0.15-1.2); Total Protein 7.8 g/dL (6.6-8.7)
--- NOTE | 2019-12-21 17:49 | CT_ITS ---
WS: [id number] EXAM: CT OF THE CHEST, ABDOMEN AND PELVIS WITHOUT CONTRAST DATE OF EXAMINATION: 12/21/2019, 1831 hours COMPARISON: Prior CT from 12/15/2019. HISTORY: 69 years old with sepsis. History of colon cancer. Status post appendectomy, cholecystectomy, colon s urgery and heart surgery. TECHNIQUE: Transaxial computed tomography images obtained through the abdomen and pelvis without utilization of contrast viewed in multiple windows with reconstructions. DLP: 2537.[address] scans at [facility] use at least one of these dose optimization techniques: automat ed exposure control; mA and/or kV adjustment per patient size (includes targeted exams where dose is matched to clinical indication); or iterative reconstruction. FINDINGS: There are diffuse pulmonary nodules within both lungs suggesting diffuse metastatic disease. They are too numerous to count. Several large mass lesions are seen within the left hemithorax. No new area o f infiltrate is seen. No effusion or pneumothorax. Postop sternotomy changes from prior coronary kai ry bypass. No mediastinal mass is seen. Heart size is considered upper limits of normal. Extensive co ronary calcifications. Thoracic and abdominal aorta is normal in caliber. Without IV contrast evaluat ion of the lumen is considered inadequate. Liver attenuation is mottled. Multiple lesions in the live r felt to represent metastatic disease. Clips in the gallbladder fossa correlate with cholecystectomy changes. Adenopathy in the love hepatis region. No biliary dilatation is noted. The spleen is normal in appearance. The pancreas is normal appearance. Right adrenal gland is normal in appearance. Appears to be a mass lesion involving the inferior left adrenal gland most likely representing metastatic disease. Slight retroperitoneal lipomatosis changes seen. Perinephric stranding around both kidneys. No obstru ctive uropathy. Multiple cystic lesions involving the left kidney. There is a thickened wall of the esophagus suggesting possible esophagitis. Otherwise unremarkable. S tomach is full of ingested fluid and food otherwise unremarkable. Small bowel is normal in caliber. T he colon is normal in caliber. Postop staple line in the sigmoid colon region demonstrated. Scattered diverticulosis changes are demonstrated. There are no findings of diverticulitis. No bowel obstructi on or free air. Extensive adenopathy is seen in the retroperitoneum as well as adenopathy along the area of the renal reba as well as in the root of the mesentery in the upper abdomen all suggesting metastatic disease from underlying colon cancer. Bladder is normally distended. Minute in size periumbilical hernia as well as an umbilical hernia. No groin hernia. Prostate is considered normal in size. Scattered degenerative changes are seen in the spine. CT/CT chest abd pel wo con IMPRESSION: Imaging findings felt to represent diffuse metastatic disease as described. No findings of pneumonia. No bowel obstruction, free air, free fluid or inflammatory process. No obstruct cain uropathy. Other nonemergent findings as described in the body of the report.
--- NOTE | 2019-12-21 17:50 | P.HP_ITS ---
Providers/Chief Complaint Primary Care Provider: Janina Clinton DO Chief Complaint: FALL, HIP PAIN History of Present Illness Gulshan Braga is a 69 year old male with past medical history of hypertension, type 2 diabetes mellitus, colon cancer post colectomy, recurrence, metastasis to bones and liver and lung not on therapy for now, post CABG, ischemic cardiomyopathy with a EF of 48%, multiple VPCs, dyslipidemia presented to the ER today after he had a fall on standing up at home. Patient checked his blood pressure at home and it was 79 systolic so they brought him to the ER. As per the patient and daughter who is bedside patient received premedication to chemotherapy 4 weeks ago with vesitilib after which he developed rash all over his body with mild itching because of which he did not receive the second dose and chemotherapy has not been started yet. For last 3 weeks patient has been having recurrent nausea and vomiting which has been getting worse. Nausea and vomiting would get aggravated on eating. Patient's last bowel movement was 3 days ago and constipated. Denies of having any blood in the bowel movements. He complains of mild right-sided lower abdominal pain yesterday. He has also been having back pain on and off for last 2 weeks. For the back pain he had a CT kidney done to rule out stones which was consistent with nonobstructive uropathy. Patient carries with him a blood pressure and blood glucose diary which is mostly within normal limits. Blood pressures are usually running between 130 systolic to 110 systolic over 60-80 diastolic with blood sugars run ranging from 90 to 120. His low blood pressure numbers were only there till today morning. Patient also gives history of starting on a new medication with trazodone since last night which was given to him because of lack of sleep. He is also started on hydrocodone 3 days ago. Though patient states he has not taken any hydrocodone till now. He denies of having any fever, cough, expectoration, headache, flulike symptoms, myalgias, exposure to known COVID-19 patients, tick exposure, dysuria, diarrhea, palpitation, chest pain, difficulty in breathing. In the ER his blood work showed a white count of 15.2, hemoglobin of 13.1, platelet of 278 with left shift neutrophilia, sodium of 134, chloride of 95, BUN of 37, creatinine of 3.3, normal liver functions, CT cervical spine suggestive of extensive changes of arthritis in cervical spine with multiple levels of central canal stenosis and multiple pulmonary nodule, hip and pelvis x-ray consistent with arthritis of lower spine without any fractures, CT head with old bilateral frontal lobe white matter infarcts without any acute pathology. On presentation to the ER his blood pressure was 90 systolic for which he received 1 L of normal saline bolus and blood pressures improved to 102 systolic. Review of Systems General: Reports: 10 or more systems reviewed and unremarkable except in HPI and below Const: Reports: change in appetite; Denies: fever(s), chills, body aches, change in weight, malaise, night sweats, diaphoresis, change in sleep pattern, daytime sleepiness or snoring Eyes: Denies: change in vision, blurry vision, photophobia, eye discomfort or eye discharge ENMT: Denies: throat pain, enlarged tonsils, hoarseness, mouth pain, oral sores, dry mouth, tinnitus, nasal congestion or post nasal drip Card: Denies: chest pain, palpitations, irregular heart rhythm, edema, swelling of feet/ankles, lightheadedness, syncope, pre-syncope, dyspnea on exertion, orthopnea, leg pain with exertion or acrocyanosis Resp: Denies: dyspnea, productive cough, non-productive cough, wheezing, stridor, pain on inspiration, change in phlegm color, hemoptysis or chest congestion GI: Reports: abdominal pain, nausea, vomiting and constipation; Denies: hematemesis, coffee ground emesis, dysphagia, heartburn, diarrhea, bloating, GI cramping, change in bowel habits, pain on defecation, hematochezia or melena : Reports: flank pain; Denies: difficulty urinating, dysuria, urinary frequency, urinary urgency, urinary hesitancy, urinary dribbling, difficulty starting urination, change in urine stream, nocturia or hematuria Musc: Denies: neck pain, back pain, extremity pain, joint pain, joint swelling, joint redness, joint stiffness or limited range of motion Neuro: Denies: headache(s), numbness in extremities, weakness in extremities, sensory changes, lack of coordination, difficulty walking, frequent falls, dizziness, vertigo, confusion, Slurred speech present, difficulty communicating thoughts or seizure-like activity Psych: Denies: anxiety, depression, mood swings, panic attacks, hopelessness or irritability Endo: Denies: polyuria, polydipsia, tired all the time, cold intolerance, excessive sweating, flushing or heat intolerance Florencio/Lymph: Denies: easy bruising or easy bleeding All/Imm: Denies: tongue swelling, facial swelling or acute wheezing Medications/Allergies Home Medications Medication Instructions Recorded Confirmed Last Taken Type aspirin 81 mg tablet,delayed 81 mg PO DAILY 10/20/19 12/21/19 12/19/19 History release cholecalciferol (vitamin D3) 50 50 mcg PO DAILY 10/20/19 12/21/19 12/19/19 History mcg (2,000 unit) capsule magnesium oxide 400 mg PO DAILY 10/20/19 12/21/19 12/19/19 History metformin 850 mg tablet 850 mg PO BID 10/20/19 12/21/19 12/19/19 History glipizide 5 mg tablet 5 mg PO DAILY #90 tab 10/24/19 12/21/19 12/19/19 Rx lisinopril 5 mg tablet 5 mg PO DAILY #90 tab 10/24/19 12/21/19 12/19/19 Rx metoprolol succinate 25 mg 12.5 mg PO DAILY #45 tab 10/24/19 12/21/19 12/21/19 Rx tablet,extended release 24 hr rosuvastatin 20 mg tablet 20 mg PO DAILY #90 tab 10/24/19 12/21/19 12/19/19 Rx hydrocodone-acetaminophen 2 tab PO Q4H PRN 12/21/19 12/21/19 Unknown History iron 325 mg PO DAILY 12/21/19 12/21/19 12/19/19 History pantoprazole 40 mg PO DAILY 12/21/19 12/21/19 Unknown History trazodone 50 mg PO BEDTIME 12/21/19 12/21/19 12/20/19 History Allergies Allergy/AdvReac Type Severity Reaction Status Date / Time Penicillins AdvReac ADR-Itching Verified 12/21/19 17:12 PFSH Acute PFSH: Medical History CAD (coronary artery disease) Cancer COLON CHF (congestive heart failure), NYHA class I Diabetes Dyslipidemia Fatigue Hypertension Ischemic cardiomyopathy Metastasis PRIYA (obstructive sleep apnea) PVCs (premature ventricular contractions) Shortness of breath Type 2 diabetes mellitus Surgical History Hx of CABG 2014 Family History Other CAD (coronary artery disease) Myocardial infarction Social History Smoking and tobacco status: former smoker Quit status (tobacco): has quit using tobacco Year quit tobacco: 2004 Alcohol intake: never Vitals/I&O/Wt Last Vital Signs Temp 98.1 F 12/21/19 15:24 Pulse 106 H 12/21/19 15:24 Resp 18 12/21/19 15:57 BP 103/50 12/21/19 15:24 Pulse Ox 92 12/21/19 15:24 Weight last 48 hrs Weight 99.337 kg Physical Exam Narrative: EXAM NARRATIVE: General: No acute distress, AO x3, pale, dehydrated HEENT: PERRLA, pupils bilaterally equal and reactive Chest: Normal vesicular breath sounds, no added sounds, equal good air entry bilaterally CVS: S1-S2 regular, no murmurs, no tachycardia, no gallops, no rubs Abdomen: Soft, obese, distended nontender, no organomegaly, bowel sounds present Neuro: No focal deficits, no facial deformity, AO x3, power 5/5 in all limbs Data : 12/21/19 16:34 12/21/19 16:34 A&P Assessment and plan (1) Nausea & vomiting: Status: Acute (2) Sepsis: Status: Acute (3) Orthostatic hypotension: Status: Acute (4) Hypotension: Status: Acute (5) JEANETH (acute kidney injury): Status: Acute (6) Metabolic acidosis: Status: Acute (7) Type 2 diabetes mellitus: Status: Acute (8) Hypertension: Status: Acute (9) Dyslipidemia: Status: Acute (10) PRIYA (obstructive sleep apnea): Status: Acute (11) CHF (congestive heart failure), NYHA class I: Status: Acute (12) Ischemic cardiomyopathy: Status: Acute (13) Cancer: Status: Acute (14) Metastasis: Status: Acute (15) Fatigue: Status: Acute Additional A&P Information 69-year-old male with past medical history of colon cancer with recurrence with metastasis to lungs, liver and bones, history of hypertension, obstructive sleep apnea, ischemic cardiomyopathy comes in today with multiple episodes of nausea and vomiting for last 3 weeks along with fall after she started having dizziness because of low blood pressures at home and was found to have JEANETH. Nausea and vomiting: Multiple etiologies could be there. Could be because of uremia from JEANETH. Could be because of SBO because of colon cancer. Could be because of infective pathology. Sepsis: Criteria met through hypotension, leukocytosis, tachycardia on admission. Unknown source for now. Check lactate, procalcitonin, blood cultures, urinalysis, urine culture, sputum culture, urine Legionella, d-dimer, cortisol level, flu swab, MRSA swab, rapid COVID-19 antigen. Check TSH level. Check TIBC, ferritin. For now start patient on vancomycin and imipenem both at renal dose. We will follow-up culture results and de-escalate antibiotics accordingly. If patient continues to remain afebrile for next 24 to 36 hours can discontinue the antibiotics at that time. Check CT abdomen chest pelvis without contrast to rule out any infective pathology, SBO. Normal saline at 75 cc/h. We will have to monitor fluid overload because of history of ischemic cardiomyopathy. Orthostatic hypotension: Most likely because of severe dehydration. Cannot rule out sepsis. Could be because of trazodone in view of JEANETH. Hold off trazodone. Hold off antihypertensives. Continue to monitor orthostatic every shift. Fall precautions. JEANTEH: Most likely because of dehydration from vomiting along with ERIKA inhibitor's for hypertension. Check CT abdomen pelvis for obstructive uropathy as above. Patient has a history of kidney stones in the past. Medical reconciliation done for nephrotoxic drugs. Check urine lites, urine creatinine, urine eosinophils. Metabolic acidosis: Most likely because of JEANETH. We will continue to monitor. Check BMP daily. Hypertension: Goal blood pressure less than 140/90 mmHg. With mean arterial pressure over 65 mmHg. For now hold off on antihypertensives and continue to monitor. History of CABG: Multiple VPCs in the past: Ischemic cardiomyopathy: As per cardiology note from October 2019 patient has an EF of 48%. He also has a history of congestive heart failure with 15% burden of premature ventricular contraction on the event monitor with 4-5 beats of 2-3 VT. Patient is chest pain-free. Check proBNP. Patient looks dehydrated right now. Will monitor for fluid overload. EKG. Telemetry monitoring. Continue with metoprolol at 12.5 mg twice daily. Continue with home dose of aspirin and statin. Type 2 diabetes mellitus: Hold off on oral hypoglycemics. Carb consistent diet. Insulin sliding scale at mild dose before meals and at bedtime. Goals of care: Discussed in detail both with patient and daughter who is at bedside. Daughter is the DPOAE. They both state that patient would like to be around natural . Heparin for DVT prophylaxis. Protonix for PUD prophylaxis. Attestations Medical Necessity Statement*: More than 2 midnights for JEANETH, dehydration, possible sepsis Time Spent in Patient Care: Greater than 35 minutes (>than 50% of time spent in counselling and/or direct pt care on unit) . Coding Level of Care Code Acute Producer Arborist Manager for g Fwd Diagnoses Nausea & vomiting R11.2 Sepsis A41.9 Orthostatic hypotension I95.1 Hypotension I95.9 JEANETH (acute kidney injury) N17.9 Metabolic acidosis E87.2 Type 2 diabetes mellitus E11.9 Hypertension I10 Dyslipidemia E78.5 PRIYA (obstructive sleep apnea) G47.33 CHF (congestive heart failure), NYHA class I I50.9 Ischemic cardiomyopathy I25.5 Cancer C80.1 Metastasis C79.9 Fatigue R53.83
[2019-12-21 18:33] LABS: Cortisol Random 27.86 ug/mL (2.47-19.5)
[2019-12-21 18:34] LABS: Procalcitonin 0.23 ng/mL (0-0.5)
--- NOTE | 2019-12-21 18:46 | PC.NURSE ---
Patient swabbed for COVID at this time
[2019-12-21 18:47] LABS: D Dimer 2.26 ug/mIFEU (0-0.59)
[2019-12-21 18:51] LABS: Lactic Sepsis W/Reflex 1.7 mmol/L (0.5-2.2)
[2019-12-21 18:53] LABS: Thyroid Stimulating Hormone 0.86 uIU/mL (0.27-4.20)
[2019-12-21 19:04] LABS: Iron 22 ug/dL (59-158); Percent Saturation 12.3 % (20-50); Total Iron Binding Capacity 178 mcg/dl; Unsaturated Iron Binding 156 ug/dL (112-347)
--- NOTE | 2019-12-21 19:09 | PC.NURSE ---
patient swabbed for COVID at this time
[2019-12-21 19:25] LABS: Influenza A by IFA Negative (Negative); Influenza B by IFA Negative (Negative)
[2019-12-21 19:28] LABS: SARS Covid-2 Antigen Negative (Negative)
[2019-12-21 19:40] LABS: NT Pro B Type Natriuretic Pept 1471 pg/mL (0-125)
[2019-12-21 20:30] LABS: Add Urine Microscopic? NO
[2019-12-21 20:48] LABS: Bilirubin Urine 1+ (Negative); Blood Urine Neg (Negative); Glucose Urine UA Norm (Normal); Ketones Urine Negative (Negative); Leukocyte Esterase Urine Negative (Negative); Nitrate Urine Negative (Negative); Protein Urine Neg (Negative); Urine Appearance Clear (CLEAR); Urine Color Dark Yellow (Yellow); Urobilinogen Urine Norm (Negative); pH Urine 5 (5-7)
--- NOTE | 2019-12-21 20:51 | PC.PHAR ---
Creatinine clearance is 23.39. Vancomycin is dosed at 750mg IVPB every 24 hours to produce a predicted trough level of 16.72 (population based pharmacokinetic analysis). A trough level has been ordered to be obtained before the fourth dose to confirm and adjust if needed.
[2019-12-21] MEDS: sodium chloride 0.9% 1,000 ML 75 ML IV (21:35)
[2019-12-21] MEDS: heparin 5,000 unit/mL INJ 1 mL 5000 UNIT SUBCUT (21:36)
[2019-12-21] MEDS: metoprolol tartrate 25 mg Tablet 12.5 MG PO (21:37)
--- NOTE | 2019-12-21 22:04 | PC.RESP ---
When performing the pts assess and treat order- pt stated that he wore a CPAP at home at night. Spoke with the Physician and received a verbal order stating that the pt could have an auto CPAP. When I brought the CPAP to the pt's room- he refused the CPAP at this time due to nausea and vomiting. Placed the CPAP on standby, and will continue to monitor the pt.
[2019-12-21] MEDS: vancomycin 750 MG in sodium chloride 0.9% 250 ML 250 MG IV (23:23)
[2019-12-22] VITALS (7 sets, daily range): BP systolic 92–137; BP diastolic 60–79; PULSE 67–102; RESP 16–18; TEMP 36.7–37.3; O2SAT 93–96
[2019-12-22 04:28] LABS: Bilirubin Urine Neg (Negative); Blood Urine Neg (Negative); Glucose Urine UA Norm (Normal); Ketones Urine 1+ (Negative); Leukocyte Esterase Urine Negative (Negative); Nitrate Urine Negative (Negative); Protein Urine Neg (Negative); Specific Gravity, Urine 1.025 (1.005-1.030); Urine Appearance Clear (CLEAR); Urine Color Yellow (Yellow); Urobilinogen Urine Norm (Negative); pH Urine 5 (5-7)
[2019-12-22 04:42] LABS: Potassium, Radom Urine 45 mmol/L; Urine Creatinine 193 mg/dL (39-259); Urine Random Chloride 76 mmol/L; Urine Random Sodium 106 mmol/L
[2019-12-22 06:05] LABS: Basophils # 0.1 10^3/uL (0.0-0.1); Basophils % 0.6 %; Eosinophils % 0.2 %; Hematocrit 38.8 % (42.0-52.0); Hemoglobin 12.3 g/dL (11.7-16.6); Lymphocytes # 1.1 10^3/uL (0.8-4.8); Mean Corpuscular HGB Conc 31.7 g/dL (30.0-36.0); Mean Corpuscular Hemoglobin 23.7 pg (28.0-34.0); Mean Corpuscular Volume 74.9 fL (80-94); Mean Platelet Volume 10.7 fL (7.4-10.4); Monocytes # 1.6 10^3/uL (0.2-0.9); Monocytes % 10.3 %; Neutrophils # 12.37 10^3/uL (1.8-7.7); Neutrophils % 81.3 %; Nucleated Red Blood Cells % 0 %; Platelet Count 264 10^3/cmm (130-400); Red Blood Count 5.18 10^6/uL (4.1-5.3); Red Cell Distribution Width 17.3 % (12.1-15.1); White Blood Count 15.2 10^3/uL (4.0-10.0)
[2019-12-22 06:32] LABS: Alanine Aminotransferase 10 U/L (0-41); Albumin Level 3.3 g/dL (3.5-5.2); Alkaline Phosphatase 90 IU/L (40-130); Anion Gap 18.3 (5-19); Aspartate Amino Transferase 15 U/L (0-40); Blood Urea Nitrogen 35 mg/dL (8-23); Calcium 8.9 mg/dL (8.5-10.5); Carbon Dioxide 20 mmol/L (22-29); Chloride 99 mmol/L (98-107); Globulin 3.9 g/dL (1.3-4.6); Glomerular Filtration Rate 33.2 mL/min (90-130); Glucose 97 mg/dL (65-115); Osmolality Calculated 284 mOsm/kg (285-295); Potassium 4.3 mmol/L (3.5-5.1); Sodium 133 mmol/L (136-145); Total Bilirubin 0.7 mg/dL (0.15-1.2); Total Protein 7.2 g/dL (6.6-8.7)
[2019-12-22 06:36] LABS: Magnesium 1.9 mg/dL (1.7-2.3); Phosphorus 4.1 mg/dL (2.5-4.5)
[2019-12-22 06:46] LABS: Cortisol Random 28.65 ug/mL (2.47-19.5)
[2019-12-22 07:12] LABS: Eosinophil Urine No Eosinophils Seen
[2019-12-22 07:34] LABS: Add Urine Culture? No; Bacteria Urine 2+ /hpf; Mucus Urine t /hpf; RBC Urine 0-4 /hpf (0-2); Squamous Epithelial Cell Urine 0-4 /hpf (0-5); WBC Urine 0-4 /hpf (0-5)
[2019-12-22] MEDS: atorvastatin 40 mg Tablet 80 MG PO (09:21)
[2019-12-22] MEDS: metoprolol tartrate 25 mg Tablet 12.5 MG PO ×2 (09:23→18:05)
[2019-12-22] MEDS: pantoprazole DR 40 mg Tablet PO (09:26)
[2019-12-22] MEDS: ferrous sulfate EC 325 mg Tablet PO (09:27)
[2019-12-22] MEDS: aspirin 81 mg EC Tablet PO (09:28)
[2019-12-22] MEDS: lactulose oral liq 20 gm/30 mL UDC 10 GM PO (09:29)
[2019-12-22] MEDS: docusate sodium 100 mg Capsule PO ×2 (09:29→18:05)
[2019-12-22] MEDS: heparin 5,000 unit/mL INJ 1 mL 5000 UNIT SUBCUT ×2 (09:30→21:10)
--- NOTE | 2019-12-22 11:51 | P.PN_ITS ---
Subjective Subjective: Interval history: No acute events overnight. Denies of any nausea, vomiting, headache, dizziness. Patient remains on room air. Patient has remained hemodynamically stable and afebrile last 24 hours. Patient is complaining of hiccups. He states he is been walking around in his room to the bathroom without having any problems. Still has not had any bowel movements. Vitals/I&O/Wt Last Vital Signs Temp 99.2 F 12/22/19 08:00 Pulse 89 12/22/19 08:00 Resp 16 12/22/19 08:00 BP 108/69 12/22/19 08:00 Pulse Ox 94 12/22/19 08:00 12/21/19 12/22/19 12/22/19 22:59 06:59 14:59 Intake Total 100 / 100 100 / 200 120 / 120 Output Total 100 / 100 325 / 425 125 / 125 Balance 0 / 0 -225 / -225 -5 / -5 Weight last 48 hrs Weight 101.605 kg Weight 99.337 kg Physical Exam Narrative: EXAM NARRATIVE: General: No acute distress, AO x3, pale, dehydrated HEENT: PERRLA, pupils bilaterally equal and reactive Chest: Normal vesicular breath sounds, no added sounds, equal good air entry bilaterally CVS: S1-S2 regular, no murmurs, no tachycardia, no gallops, no rubs Abdomen: Soft, obese, distended nontender, no organomegaly, bowel sounds present Neuro: No focal deficits, no facial deformity, AO x3, power 5/5 in all limbs Data : 12/22/19 04:32 12/22/19 04:32 Micro: Microbiology 12/22/19 04:05 Legionella Urinary Antigen - Final Urine,Clean Catch 12/21/19 20:03 Blood Culture - Preliminary Blood SPECIMEN COLLECTED 12/21/19 16:34 Blood Culture - Preliminary Blood SPECIMEN COLLECTED A&P Assessment and plan (1) Nausea & vomiting: Status: Acute (2) Sepsis: Status: Acute (3) Orthostatic hypotension: Status: Acute (4) Hypotension: Status: Acute (5) JEANETH (acute kidney injury): Status: Acute (6) Metabolic acidosis: Status: Acute (7) Type 2 diabetes mellitus: Status: Acute (8) Hypertension: Status: Acute (9) Dyslipidemia: Status: Acute (10) PRIYA (obstructive sleep apnea): Status: Acute (11) CHF (congestive heart failure), NYHA class I: Status: Acute (12) Ischemic cardiomyopathy: Status: Acute (13) Cancer: Status: Acute (14) Metastasis: Status: Acute (15) Fatigue: Status: Acute Additional A&P Information 69-year-old male with past medical history of colon cancer with recurrence with metastasis to lungs, liver and bones, history of hypertension, obstructive sleep apnea, ischemic cardiomyopathy comes in today with multiple episodes of nausea and vomiting for last 3 weeks along with fall after she started having dizziness because of low blood pressures at home and was found to have JEANETH. Nausea and vomiting: Multiple etiologies could be there. Most likely a combination of secondary to uremia and esophagitis as seen on CT abdomen pelvis. SBO ruled out. Patient has remained afebrile, hemodynamic stable, no localized infectious source on CT chest abdomen pelvis. Procalcitonin has remained negative, urinalysis within normal limits, cortisol levels normal, flu swab negative, rapid COVID-19 antigen negative, TSH within normal limits. Protonix 40 mg oral twice daily. Zofran for nausea. Bowel regimen with senna, Colace, lactulose. We will also give 1 dose of mag citrate. Sepsis: Criteria met through hypotension, leukocytosis, tachycardia on admission. Unknown source for now. For now we will continue with vancomycin and imipenem both at renal dose. If patient remains afebrile for next 24 hours will discontinue the antibiotics. Follow-up the culture results. Orthostatic hypotension: Most likely because of severe dehydration. Cannot rule out sepsis. Could be because of trazodone in view of JEANETH. Hold off trazodone. Hold off antihypertensives. Continue to monitor orthostatic every shift. Fall precautions. Patient is euvolemic. Continue normal saline at 75 cc/h while monitoring for fluid overload because of history of ischemic cardiomyopathy. JEANETH: Baseline 1-1.4. Most likely because of dehydration from vomiting along with ERIKA inhibitor's for hypertension. Creatinine improving. 2 today. Continue fluids as above. Medical reconciliation done for nephrotoxic drugs. FeNa- 0.8% Consistent with pre renal Metabolic acidosis: Resolved. Most likely because of JEANETH. We will continue to monitor. Check BMP daily. Hypertension: Goal blood pressure less than 140/90 mmHg. With mean arterial pressure over 65 mmHg. For now hold off on antihypertensives and continue to monitor. History of CABG: Multiple VPCs in the past: Ischemic cardiomyopathy: As per cardiology note from October 2019 patient has an EF of 48%. He also has a history of congestive heart failure with 15% burden of premature ventricular contraction on the event monitor with 4-5 beats of 2-3 VT. Patient is chest pain-free. Telemetry monitoring. Continue with metoprolol at 12.5 mg twice daily. Continue with home dose of aspirin and statin. Type 2 diabetes mellitus: Hold off on oral hypoglycemics. Carb consistent diet. Insulin sliding scale at mild dose before meals and at bedtime. Goals of care: Discussed in detail both with patient and daughter who is at bedside. Daughter is the DPOAE. They both state that patient would like to be around natural . Heparin for DVT prophylaxis. Protonix for PUD prophylaxis. Attestations Medical Necessity Statement*: Orthostatic hypotension, JEANETH, dehydration Time Spent in Patient Care: Greater than 35 minutes (>than 50% of time spent in counselling and/or direct pt care on unit) . Coding Level of Care Code Acute Personalized Living Manager Nurse for Gavino Lovell Diagnoses Nausea & vomiting R11.2 Sepsis A41.9 Orthostatic hypotension I95.1 Hypotension I95.9 JEANETH (acute kidney injury) N17.9 Metabolic acidosis E87.2 Type 2 diabetes mellitus E11.9 Hypertension I10 Dyslipidemia E78.5 PRIYA (obstructive sleep apnea) G47.33 CHF (congestive heart failure), NYHA class I I50.9 Ischemic cardiomyopathy I25.5 Cancer C80.1 Metastasis C79.9 Fatigue R53.83
[2019-12-22] MEDS: sodium chloride 0.9% 1,000 ML 75 ML IV (14:19)
[2019-12-22] MEDS: magnesium citrate Btl 296 mL 150 ML PO (14:23)
[2019-12-22] MEDS: metoclopramide 5 mg/mL SDV 2 mL IVP ×2 (14:24→20:15)
--- NOTE | 2019-12-22 15:06 | PC.CHAP ---
Pastoral Care Encounter/Spiritual Assessment Type of Contact [] Declined clinic licensed practical nurse visit [] Patient/Family/Request visit [] Outpatient visit [] Follow-up visit [] Physician referral [] Code/Alert [x] Routine visit [] Staff referral [] Actively dying [] Patient sleeping [] Family support [] [] Out of room [] Palliative care [] [x] Receiving care in room [] Pre-surgical visit [] Trauma [] Long length of stay [] ICU visit [] Other: Relational/Emotional Strength [] Patient feels connected with others/family/visitors/staff [x] Distress [] Loneliness/isolation [] Abandonment Spirituality of Patient [] Person of Estefani [] Attends Hindu of their Estefani [] Believes in Prayer [] Reads Bible or Anglican materials [] There are Spiritual issues to be addressed Incoming Inspector Interventions [] Prayer [] Active listening [] Non-anxious presence [] Spiritual/emotional support [] Crisis/trauma care [] Spiritual counseling [] Bereavement support [] Provided bereavement packet [] Provided Bible/devotional materials [] Provided toy/stuffed animal, coloring book to patient or family member [] Provided Communion [] Anointing/[place] [] Salvation [] Completed spiritual assessment [] Other: Impact on Illness or Injury [] Angry [] Fearful [] Anxious [] Often cries [] Exhaustion [] Unable to work [] Unable to attend episcopal [] Unable to walk/stand [] Unable to read [] Unable to drive [] Unable to eat/drink [] Unable to sleep [] Unable to be with family [] Patient intubated [] Other: Summary Was able to talk with him, has a good attitude, going home soon Time spent with patient 10 mins
[2019-12-22] MEDS: sucralfate 1 gm/10 mL Oral Liq UDC PO ×2 (16:53→21:10)
[2019-12-22] MEDS: vancomycin 750 MG in sodium chloride 0.9% 250 ML 250 MG IV (22:49)
[2019-12-23] VITALS (8 sets, daily range): BP systolic 100–131; BP diastolic 67–82; PULSE 56–104; RESP 18–20; TEMP 36.7–37; O2SAT 95–96
[2019-12-23] MEDS: metoclopramide 5 mg/mL SDV 2 mL IVP ×2 (01:38→08:08)
[2019-12-23] MEDS: sodium chloride 0.9% 1,000 ML 75 ML IV (04:01)
[2019-12-23] MEDS: sucralfate 1 gm/10 mL Oral Liq UDC PO ×2 (07:13→10:29)
[2019-12-23] MEDS: lactulose oral liq 20 gm/30 mL UDC 10 GM PO (08:09)
[2019-12-23] MEDS: ferrous sulfate EC 325 mg Tablet PO (08:10)
[2019-12-23] MEDS: aspirin 81 mg EC Tablet PO (08:11)
[2019-12-23] MEDS: atorvastatin 40 mg Tablet 80 MG PO (08:11)
[2019-12-23] MEDS: pantoprazole DR 40 mg Tablet PO (08:11)
[2019-12-23] MEDS: metoprolol tartrate 25 mg Tablet 12.5 MG PO (08:11)
[2019-12-23] MEDS: docusate sodium 100 mg Capsule PO (08:11)
[2019-12-23] MEDS: heparin 5,000 unit/mL INJ 1 mL 5000 UNIT SUBCUT (10:28)
[2019-12-23 12:28] LABS: Basophils # 0.1 10^3/uL (0.0-0.1); Basophils % 0.5 %; Eosinophils # 0.1 10^3/uL (0.0-0.8); Hematocrit 38.1 % (42.0-52.0); Hemoglobin 11.8 g/dL (11.7-16.6); Lymphocytes % 9.2 %; Mean Corpuscular Hemoglobin 23.6 pg (28.0-34.0); Mean Corpuscular Volume 76.4 fL (80-94); Mean Platelet Volume 10.4 fL (7.4-10.4); Monocytes % 9.1 %; Neutrophils # 8.52 10^3/uL (1.8-7.7); Neutrophils % 79.7 %; Nucleated Red Blood Cells % 0 %; Platelet Count 241 10^3/cmm (130-400); Red Blood Count 4.99 10^6/uL (4.1-5.3); Red Cell Distribution Width 17.4 % (12.1-15.1); White Blood Count 10.7 10^3/uL (4.0-10.0)
[2019-12-23 12:42] LABS: Alanine Aminotransferase 11 U/L (0-41); Albumin Level 3.4 g/dL (3.5-5.2); Alkaline Phosphatase 107 IU/L (40-130); Anion Gap 14.4 (5-19); Aspartate Amino Transferase 17 U/L (0-40); Blood Urea Nitrogen 29 mg/dL (8-23); Calcium 8.7 mg/dL (8.5-10.5); Carbon Dioxide 24 mmol/L (22-29); Chloride 99 mmol/L (98-107); Globulin 3.8 g/dL (1.3-4.6); Glomerular Filtration Rate 59.9 mL/min (90-130); Glucose 101 mg/dL (65-115); Osmolality Calculated 282 mOsm/kg (285-295); Potassium 4.4 mmol/L (3.5-5.1); Sodium 133 mmol/L (136-145); Total Bilirubin 0.4 mg/dL (0.15-1.2); Total Protein 7.2 g/dL (6.6-8.7)
[2019-12-23 12:48] LABS: H. Pylori IgG Antibody Negative (Negative)
--- NOTE | 2019-12-23 12:53 | PM.DCS ---
Discharge Providers Date of Admission: 12/21/19 18:15 Date of Discharge: December 23, 2019 Attending Provider at Admission: Bro Gutierrez MD Attending Provider at Discharge: Bro Gutierrez MD Primary Care Provider: Janina Clinton DO Diagnoses at Discharge Discharge Diagnosis (1) Nausea & vomiting: Status: Acute (2) Sepsis: Status: Acute (3) Orthostatic hypotension: Status: Acute (4) Hypotension: Status: Acute (5) JEANETH (acute kidney injury): Status: Acute (6) Metabolic acidosis: Status: Acute (7) Type 2 diabetes mellitus: Status: Acute (8) Hypertension: Status: Acute (9) Dyslipidemia: Status: Acute (10) PRIYA (obstructive sleep apnea): Status: Acute (11) CHF (congestive heart failure), NYHA class I: Status: Acute (12) Ischemic cardiomyopathy: Status: Acute (13) Cancer: Status: Acute Problem details: COLON (14) Metastasis: Status: Acute (15) Fatigue: Status: Acute (16) Esophagitis: Status: Acute (17) Metastasis to lung: Status: Acute (18) 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 Patient checked his blood pressure at home and it was 79 systolic so they brought him to the ER. As per the patient and daughter who is bedside patient received premedication to chemotherapy 4 weeks ago with vesitilib after which he developed rash all over his body with mild itching because of which he did not receive the second dose and chemotherapy has not been started yet. For last 3 weeks patient has been having recurrent nausea and vomiting which has been getting worse. Nausea and vomiting would get aggravated on eating. Patient's last bowel movement was 3 days ago and constipated. Denies of having any blood in the bowel movements. He complains of mild right-sided lower abdominal pain yesterday. He has also been having back pain on and off for last 2 weeks. For the back pain he had a CT kidney done to rule out stones which was consistent with nonobstructive uropathy. Patient carries with him a blood pressure and blood glucose diary which is mostly within normal limits. Blood pressures are usually running between 130 systolic to 110 systolic over 60-80 diastolic with blood sugars run ranging from 90 to 120. His low blood pressure numbers were only there till today morning. Patient also gives history of starting on a new medication with trazodone since last night which was given to him because of lack of sleep. He is also started on hydrocodone 3 days ago. Though patient states he has not taken any hydrocodone till now. He denies of having any fever, cough, expectoration, headache, flulike symptoms, myalgias, exposure to known COVID-19 patients, tick exposure, dysuria, diarrhea, palpitation, chest pain, difficulty in breathing. In the ER his blood work showed a white count of 15.2, hemoglobin of 13.1, platelet of 278 with left shift neutrophilia, sodium of 134, chloride of 95, BUN of 37, creatinine of 3.3, normal liver functions, CT cervical spine suggestive of extensive changes of arthritis in cervical spine with multiple levels of central canal stenosis and multiple pulmonary nodule, hip and pelvis x-ray consistent with arthritis of lower spine without any fractures, CT head with old bilateral frontal lobe white matter infarcts without any acute pathology. On presentation to the ER his blood pressure was 90 systolic for which he received 1 L of normal saline bolus and blood pressures improved to 102 systolic. Because his past medical history and presentation and labs on admission sepsis was another consideration still started on broad-spectrum antibiotics. He was started on IV hydration because of JEANETH. CT abdomen chest pelvis was done which showed no findings of pneumonia, bowel obstruction, and an inflammatory process but showed diffuse pulmonary nodules within both lung suggesting a diffuse metastatic disease which are too numerous to count and several large mass lesions in the left hemithorax, severe thickened wall of esophagus most likely esophagitis along with a possible mass lesion in inferior left adrenal gland. He responded well to the treatment his creatinine was back to his baseline normal on the day of discharge. Because chances of infection were low antibiotics were withheld and he was monitored for 24 hours. Patient did not spike any fevers and remained hemodynamically stable. For his esophagitis he was started on Carafate and Protonix to which he tolerated well. Patient continued to have multiple episodes of hiccups for which he was started on baclofen. Treatment plan and possible interaction with baclofen has been discussed in detail with patient and patient's daughter. They have been advised to stop baclofen if patient develops any drowsiness. Patient is advised to follow-up with his primary care provider and with Dr. Castillo on set appointments for further treatment. He is been discharged hemodynamically stable condition. Physical Exam Narrative: EXAM NARRATIVE: General: No acute distress, AO x3, pale, dehydrated HEENT: PERRLA, pupils bilaterally equal and reactive Chest: Normal vesicular breath sounds, no added sounds, equal good air entry bilaterally CVS: S1-S2 regular, no murmurs, no tachycardia, no gallops, no rubs Abdomen: Soft, obese, distended nontender, no organomegaly, bowel sounds present Neuro: No focal deficits, no facial deformity, AO x3, power 5/5 in all limbs Discharge Data Data Completed and Pending: Completed Studies During Hospitalization Category Date Time Status CT cervical spin wo con* [id number] Urge nt Cat Scan 12/21/19 16:[address] chest abd pel wo con Urgent Cat Scan 12/21/19 17:[address] head wo con* [id number] Stat Cat Scan 12/21/19 15:45 Completed XR cervical spine 3V* [id number] Stat Exams 12/21/19 15:45 Completed XR hip RT 2-3V wo /w pel* [id number] Stat Exams 12/21/19 15:45 Completed Pending at discharge Category Date Time Status Blood Culture Sta t Lab 12/21/19 20:03 Results Vancomycin Trough Timed Lab 12/25/19 20:00 Ordered Labs from last 24 hours 12/23/19 12/23/19 12/23/19 12:02 12:02 12:02 WBC 10.7 H RBC 4.99 Hgb 11.8 Hct 38.1 L MCV 76.4 L MCH 23.6 L MCHC 31.0 RDW 17.4 H Plt Count 241 MPV 10.4 Neut % (Auto) 79.7 Lymph % (Auto) 9.2 Bucks % (Auto) 9.1 Eos % (Auto) 1.0 Baso % (Auto) 0.5 Neut # (Auto) 8.52 H Lymph # (Auto) 1.0 Bucks # (Auto) 1.0 H Eos # (Auto) 0.1 Baso # (Auto) 0.1 Nucleated RBC % (a uto) 0 Nucleated RBCs # 0.0 Sodium 133 L Potassium 4.4 Chloride 99 Carbon Dioxide 24 Anion Gap 14.4 BUN 29 H Creatinine 1.2 GFR Calculation 59.9 L Glucose 101 Calculated Osmolal ity 282 L Calcium 8.7 Total Bilirubin 0.4 AST 17 ALT 11 Alkaline Phosphata se 107 Total Protein 7.2 Albumin 3.4 L Globulin 3.8 H. pylori IgG Anti body Negative Addt'l Data from Hospital Stay: CT chest abdomen pelvis without contrast FINDINGS: There are diffuse pulmonary nodules within both lungs suggesting diffuse metastatic disease. They are too numerous to count. Several large mass lesions are seen within the left hemithorax. No new area of infiltrate is seen. No effusion or pneumothorax. Postop sternotomy changes from prior coronary artery bypass. No mediastinal mass is seen. Heart size is considered upper limits of normal. Extensive coronary calcifications. Thoracic and abdominal aorta is normal in caliber. Without IV contrast evaluation of the lumen is considered inadequate. Liver attenuation is mottled. Multiple lesions in the liver felt to represent metastatic disease. Clips in the gallbladder fossa correlate with cholecystectomy changes. Adenopathy in the love hepatis region. No biliary dilatation is noted. The spleen is normal in appearance. The pancreas is normal appearance. Right adrenal gland is normal in appearance. Appears to be a mass lesion involving the inferior left adrenal gland most likely representing metastatic disease. Slight retroperitoneal lipomatosis changes seen. Perinephric stranding around both kidneys. No obstructive uropathy. Multiple cystic lesions involving the left kidney. There is a thickened wall of the esophagus suggesting possible esophagitis. Otherwise unremarkable. Stomach is full of ingested fluid and food otherwise unremarkable. Small bowel is normal in caliber. The colon is normal in caliber. Postop staple line in the sigmoid colon region demonstrated. Scattered diverticulosis changes are demonstrated. There are no findings of diverticulitis. No bowel obstruction or free air. Extensive adenopathy is seen in the retroperitoneum as well as adenopathy along the area of the renal reba as well as in the root of the mesentery in the upper abdomen all suggesting metastatic disease from underlying colon cancer. Bladder is normally distended. Minute in size periumbilical hernia as well as an umbilical hernia. No groin hernia. Prostate is considered normal in size. Scattered degenerative changes are seen in the spine. CT/CT chest abd pel wo con IMPRESSION: Imaging findings felt to represent diffuse metastatic disease as described. No findings of pneumonia. No bowel obstruction, free air, free fluid or inflammatory process. No obstructive uropathy. Other nonemergent findings as described in the body of the report. Dictated By:Good Guzman MD Signed By:Godo Guzman MDSigned Date/Time:12/21/191851 DD/ 42 Vitals: Last Vital Signs Temp 98.2 F 12/23/19 11:40 Pulse 78 12/23/19 11:40 Resp 18 12/23/19 11:40 BP 117/74 12/23/19 11:40 Pulse Ox 96 12/23/19 11:40 Discharge Plan Discharge Patient Disposition: Home Condition: Stable Prescriptions: New sucralfate 100 mg/mL Suspension 1 g PO AC&BEDTIME Qty: 100 RF: 0 baclofen 10 mg Tablet 10 mg PO BID Qty: 10 RF: 0 docusate sodium 100 mg Capsule 100 mg PO BID PRN (Reason: constipation) Qty: 10 RF: 0 Zofran 8 mg tablet 8 mg PO BID PRN (Reason: nausea and vomiting) 5 Days RF: 0 Continued magnesium oxide 400 mg magnesium capsule 400 mg PO DAILY RF: 0 cholecalciferol (vitamin D3) 50 mcg (2,000 unit) capsule 50 mcg PO DAILY RF: 0 metformin 850 mg tablet 850 mg PO BID RF: 0 aspirin [Aspir-81] 81 mg tablet,delayed release (DR/EC) 81 mg PO DAILY RF: 0 glipizide 5 mg tablet 5 mg PO DAILY Qty: 90 RF: 3 lisinopril 5 mg tablet 5 mg PO DAILY Qty: 90 RF: 3 metoprolol succinate 25 mg tablet extended release 24 hr 12.5 mg PO DAILY Qty: 45 RF: 3 rosuvastatin 20 mg tablet 20 mg PO DAILY Qty: 90 RF: 3 trazodone 50 mg tablet 50 mg PO BEDTIME RF: 0 hydrocodone-acetaminophen 5-325 mg tablet 2 tab PO Q4H PRN (Reason: Pain) RF: 0 iron 325 mg (65 mg iron) Tablet 325 mg PO DAILY RF: 0 Changed pantoprazole 40 mg tablet,delayed release (DR/EC) 40 mg PO BID Qty: 30 RF: 0 Discharge Orders: Discharge Order (Routine); Ordered 12/23/19 Ordered By: Bro Gutierrez Referrals: Janina Clinton DO [Primary Care Provider] - 2 weeks Discharge Diet: Cardiac and GI Soft Discharge Activity: Resume usual activity Activity Restrictions/Additional Instructions: Please continue taking Protonix and Carafate which will help you with your nausea and vomiting. Also take Zofran as needed for vomiting. Baclofen has been added to your medication list because of persistent hiccups. If you have any dizziness or increase sleeping you can discontinue the baclofen. Please follow-up with your primary care provider and Dr. Castillo on the set appointments. Discharge Attestations Time Spent in Discharge Care*: greater than 30 min Specific Discharge Activities: Specific discharge activities: educating patient, educating and/or supporting family/caregiver, discussing with pcp/other providers, discussing with registered nurse hh case manager/social workers/dc planners, documenting/other paperwork and evaluating patient/reviewing data Status at Discharge: Cognitive status at discharge: cognitively intact, Behavioral status at discharge: cooperative, Functional status at discharge: independent ambulation Overall status at discharge: patient is back to baseline Quality Metrics Clinical Quality Measures During this hospital stay, did patient experience: None Coding Level of Care Code Acute Rehab Director for Chg Fwd Diagnoses Nausea & vomiting R11.2 Sepsis A41.9 Orthostatic hypotension I95.1 Hypotension I95.9 JEANETH (acute kidney injury) N17.9 Metabolic acidosis E87.2 Type 2 diabetes mellitus E11.9 Hypertension I10 Dyslipidemia E78.5 PRIYA (obstructive sleep apnea) G47.33 CHF (congestive heart failure), NYHA class I I50.9 Ischemic cardiomyopathy I25.5 Cancer C80.1 Metastasis C79.9 Fatigue R53.83 Esophagitis K20.9 Metastasis to lung C78.00 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
--- NOTE | 2019-12-23 14:50 | PC.NURSE ---
Reviewed patient discharge with patient at this time. Patient verbalized understanding of discharge instructions including follow up appointment and medication changes. Patient is A&Ox3. Respirations even and non-labored on room air. Patient wheel chaired to private car where is daughter picked him up.
== END 2019-12-23 14:50 | disposition home or self-care (01) | DRG 872 ==
LOC: ER 16:18 → MEDSURG 19:36
PROVIDERS: Family Medicine; Admitting Provider Student in an Organized Health Care Education/Training Program; PCP Family Medicine; Visit Provider Student in an Organized Health Care Education/Training Program
DX: A41.9 Sepsis, unspecified organism (principal); C18.9 Malignant neoplasm of colon, unspecified; C78.7 Secondary malignant neoplasm of liver and intrahepatic bile duct; C78.02 Secondary malignant neoplasm of left lung; C78.01 Secondary malignant neoplasm of right lung; C79.51 Secondary malignant neoplasm of bone; C79.72 Secondary malignant neoplasm of left adrenal gland; N17.9 Acute kidney failure, unspecified; E87.2 Acidosis; I95.1 Orthostatic hypotension; I11.0 Hypertensive heart disease with heart failure; I50.9 Heart failure, unspecified; E11.9 Type 2 diabetes mellitus without complications; Z90.49 Acquired absence of other specified parts of digestive tract; Z95.1 Presence of aortocoronary bypass graft; I25.5 Ischemic cardiomyopathy; E78.5 Hyperlipidemia, unspecified; Z79.899 Other long term (current) drug therapy; W19.XXXA Unspecified fall, initial encounter; M47.812 Spondylosis without myelopathy or radiculopathy, cervical region; M47.816 Spondylosis without myelopathy or radiculopathy, lumbar region; I25.10 Atherosclerotic heart disease of native coronary artery without angina pectoris; G47.33 Obstructive sleep apnea (adult) (pediatric); Z87.891 Personal history of nicotine dependence; Z79.891 Long term (current) use of opiate analgesic; Z79.84 Long term (current) use of oral hypoglycemic drugs; K20.9 Esophagitis, unspecified; E86.0 Dehydration
CPT/HCPCS: 12345; 36415; 70450; 71250; 72040; 72125; 73502; 74176; 80053; 81001; 81003; 82436; 82533; 82570; 83540; 83550; 83605; 83735; 83880; 84100; 84133; 84145; 84300; 84443; 85025; 85378; 85999; 86677; 87040; 87426; 87449; 87641; 87804; 94660; 94664; 96372; 96375; 97161; 97530; 99283; J0743; J1644; J2405; J2765; J3370; J7030; J7050

== ENCOUNTER 2019-12-29 08:36 | Outpatient (CLI) | payer MEDICARE, OTHER, SELFPAY ==
[2019-12-29 09:20] LABS: Add Urine Microscopic? NO
[2019-12-29 09:25] LABS: Basophils # 0.1 10^3/uL (0.0-0.1); Eosinophils # 0.3 10^3/uL (0.0-0.8); Eosinophils % 3.6 %; Hemoglobin 11.5 g/dL (11.7-16.6); Lymphocytes # 1.4 10^3/uL (0.8-4.8); Lymphocytes % 16.9 %; Mean Corpuscular HGB Conc 30.3 g/dL (30.0-36.0); Mean Corpuscular Hemoglobin 23.2 pg (28.0-34.0); Mean Corpuscular Volume 76.6 fL (80-94); Mean Platelet Volume 9.6 fL (7.4-10.4); Monocytes # 0.9 10^3/uL (0.2-0.9); Neutrophils # 5.35 10^3/uL (1.8-7.7); Neutrophils % 66.4 %; Nucleated Red Blood Cells % 0 %; Platelet Count 314 10^3/cmm (130-400); Red Blood Count 4.96 10^6/uL (4.1-5.3); Red Cell Distribution Width 17.1 % (12.1-15.1); White Blood Count 8.1 10^3/uL (4.0-10.0)
[2019-12-29 09:34] LABS: Bilirubin Urine Neg (Negative); Blood Urine Neg (Negative); Glucose Urine UA Norm (Normal); Ketones Urine 1+ (Negative); Leukocyte Esterase Urine Negative (Negative); Nitrate Urine Negative (Negative); Protein Urine Neg (Negative); Urine Appearance Clear (CLEAR); Urine Color Yellow (Yellow); Urobilinogen Urine Norm (Negative)
[2019-12-29 09:42] LABS: Alanine Aminotransferase 11 U/L (0-41); Albumin Level 3.6 g/dL (3.5-5.2); Alkaline Phosphatase 104 IU/L (40-130); Anion Gap 15.4 (5-19); Aspartate Amino Transferase 21 U/L (0-40); Blood Urea Nitrogen 15 mg/dL (8-23); Calcium 9.1 mg/dL (8.5-10.5); Carbon Dioxide 25 mmol/L (22-29); Chloride 99 mmol/L (98-107); Globulin 3.8 g/dL (1.3-4.6); Glomerular Filtration Rate 73.9 mL/min (90-130); Glucose 100 mg/dL (65-115); Osmolality Calculated 281 mOsm/kg (285-295); Potassium 4.4 mmol/L (3.5-5.1); Sodium 135 mmol/L (136-145); Total Bilirubin 0.2 mg/dL (0.15-1.2); Total Protein 7.4 g/dL (6.6-8.7)
--- NOTE | 2020-01-07 21:52 | ONC FU_ITS ---
[facility] Patient Note Patient: Gulshan Braga Unit #: [id number]: 1950 Dictated By: Philip OscarDate of Visit: Dec 29, 2019 Onc MED Follow-Up/Prog Note Chief Complaint: Colon cancer. 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 He had presented with influenza pneumonia and non-ST elevation MS. During anticoagulation in preparation for coronary artery bypass graft surgery he develop significant rectal bleeding. A CT of the abdomen and pelvis on 05/11/2014 showed a mass in the distal sigmoid colon with soft tissue stranding, but no evidence of disease in the liver. There were 2 discrete nodules in the left lower lobe up to 1.1 cm with a patchy foci in the lingula and the left lower lobe. He required a cardiac bypass graft surgery on 05/19/2014. Preoperative staging PET/CT was reportedly performed, but results were not available. He then underwent left hemicolectomy on 07/03/2014. His surgical pathology revealed 6 x 5 cm low-grade adenocarcinoma, invading through muscularis propria into the subserosal adipose tissue. Two tumor deposits were present on the pericolonic adipose tissue. None of the 24 lymph nodes harvested were involved with metastatic disease. No lymphovascular or perineural invasion was identified. Luminal obstruction of more than 70% was present. Margins were negative. Thus, his disease was pathologic stage at least IIIB (pT3, N1c, MX). Mismatch repair analysis was normal, without defect identified. The patient had relocated to [place] from [place], to be closer to his daughter. He moved to the [facility] in August 2014 and established care with the [facility] in [place]. His cardiac nurse specialist is Dr. Lomas. He was first seen by Dr. Vivas on 03/27/2015. His case was presented on the tumor board, consensus was to offer an adjuvant chemotherapy. In interim he had a CT of the chest/abdomen/pelvis on 04/10/2014 which showed increase in the two left lung nodules to 1.8 and 1.69 cm, concerning for metastatic disease. PET/CT on 05/05/2015 confirmed FDG positive two nodules in the left lung. A CT-guided biopsy on 06/11/2015 showed suspicious cells for malignancy, with only scant specimen available. Thus his disease was stage IV (M1b). Palliative FOLFOX and Avastin was recommended and was planned, but the patient decided against palliative chemotherapy. In the meantime, K-kylah mutation was performed on the original biopsy, and mutations were not detected. He was then followed on observation/symptomatic management. Restaging CT scans of the chest, abdomen, and pelvis on 07/24/2016 showed increasing size left pulmonary nodules/mass with the largest mass of the left lung base measuring 3.1 x 2.6 cm. Overall, four nodules were present with continued slow progression since April [address] Castillo had seen him for a follow-up visit in October 2016. He was still not interested in attempting any chemotherapy treatment, and he then failed to return for further follow-up. On 03/15/2018 he presented to the emergency room with back pain. He had evaluation at that time with lumbar spine CT, which showed no acute findings. He was diagnosed with acute left-sided sciatica and treated symptomatically. He returned to the emergency room on 03/28/2018. His renal CT at that time showed a partially obstructing 4 x 5 mm ureteral calculus at the left ureteropelvic junction. Other findings included prominent portal and celiac lymph nodes, a mass adjacent to the caudate lobe of the liver measuring 2.3 cm, and a low-attenuation lesion in the hepatic dome which appeared suspicious for a metastatic lesion. Also noted were enlarging pulmonary masses in the left lower lobe. Dr Castillo had seen him for a follow-up visit on 04/13/2018. At that point I did request further evaluation with a next generation sequencing study. It showed no actionable mutations. The tumor was noted to be MSI stable. He continued observation/expectant management for the colon cancer. However, he was still having problems related to the kidney stone. He had continued follow-up with Dr. Mckeon and on 06/14/2018 he underwent extracorporeal shockwave lithotripsy for the left distal ureteral stone. He required temporary ureteral stent placement. He had no complications with the procedure, and the stent was later removed. His other medical illnesses include hypertension, hyperlipidemia, type II diabetes, and coronary artery disease. He has a history of smoking a pack and a half of cigarettes daily for 30 years, but he quit smoking more than 10 years ago. INTERIM HISTORY: At his follow-up visit on 04/29/2019 his CEA level had increased to 21.7 ng/mL compared to 8.9 ng/mL in April 2018. However, he was still not interested in considering any treatment. He was then seen for a follow-up visit again on 10/27/2019. At that point his CEA had further increased to 41.4 ng/mL. He then had restaging CT scans of the chest, abdomen, and pelvis on 11/07/2019. Those studies showed significant progression of metastatic disease with increasing pulmonary nodules in both lungs, the largest in the left upper lobe measuring 3.5 x 2.9 cm and in the left lower lobe measuring 4.6 x 4.9 cm. There was progression of metastatic lesions in the right hepatic lobe, the largest measuring 4.3 x 3.4 cm in the dome of the liver and 4.8 cm in the right hepatic lobe laterally. Also noted were multiple enlarged partially calcified lymph nodes in the love hepatis and celiac axis, bulky enlarged retrocrural and gastroesophageal lymph nodes, and bulky periaortic and retroperitoneal lymph nodes, all new from previous studies. He was seen in October [address] findings and to discuss treatment options. His daughter was present with him for that visit. The CT findings and the CT images were reviewed with the patient and his daughter per Dr Castillo. He also discussed the clinical implications. He has had significant disease progression, but over time period which is now in excess of 3 years. He is still not overtly symptomatic with it. Left untreated, it will continue to progress, and we would not be able to predict at what point it may become symptomatic. He has previously not been interested in attempting any treatment for it. However, Dr Castillo did discuss 2 treatment options, one of which would be standard chemotherapy regimen, either FOLFOX or FOLFIRI, in combination with Avastin or panitumumab. Either regimen would have a response rate in the range of 50%, with average survival in the range of 2 years. There would be expected side effects with the chemotherapy. The other option would be a trial of therapy with panitumumab as a single modality. The response rate would be much lower, in the range of 30%. It would have the expected side effect of a skin eruption, but very low risk for any other significant toxicity. Mr. Braga opted to try single agent Panitumumab. He began his first cycle on November 17, 2019. He developed classic moderate vectibix rash on week 2 of cycle 1. He is only had the 1 vectibix treatment. He had significant reaction with classic rash. He has required supportive care with hydration. He was also admitted to [facility] on 12/21/2015 with nausea vomiting sepsis orthostatic hypotension acute kidney injury. He presented with hypotension and that his systolic blood pressure was 79 his family brought him to the ER as they felt that he was not alert as he normally is and was very weak in general. He had also been having recurrent nausea vomiting. He had had some intermittent constipation as well. He had perisistent hiccoughs as well. He had been given trazodone to help him sleep was given to him the night before his admission. He is also started on hydrocodone for pain. It was uncertain as the true etiology. His systolic blood pressure was 90 on admission to the ER and after 1 L of saline bolus his systolic improved to 102. He did have a CT of the at chest abdomen pelvis without contrast which reported diffuse pulmonary nodules within both lungs they were too numerous to count. He had several large mass lesions are seen within the left hemothorax no new area of infiltrate was seen. No effusion or pneumothorax. He had extensive coronary calcifications he did not have contrast of the liver was hard to evaluate but the attenuation was mottled and multiple lesions in the liver were felt to be metastatic disease. There is adenopathy in the love hepatis region. Spleen was normal pancreas was normal right adrenal gland was normal but there did appear to be a mass lesion involving the left inferior adrenal gland most likely representing metastatic disease. There were multiple cystic lesions involving the left kidney but no obstructive uropathy. Thickened wall of the esophagus suggesting possible esophagitis. There was extensive adenopathy in the retroperitoneum as well as adenopathy along the area of the renal reba as well as in the root of the mesentery in the upper abdomen also does see metastatic disease from underlying colon cancer. There was scattered degenerative changes seen in the spine. There was no bowel obstruction. Mr. Braga was discharged on lactulose for his bowels, baclofen for hiccoughs. docusate sodium, Zofran, magnesium, vitamin D3, metformin 850 twice daily baby aspirin daily, glipizide 5 mg daily lisinopril 5 mg daily which has recently been stopped by his PCP. He continues on metoprolol 25 mg daily, rosuvastatin, Trazodone, hydrocodone 08/06/2024, iron, pantoprazole 40 mg twice daily. Mr. Braga is here today for followup and consideration of treatment with Vectibix. He states overall he is feeling much better. He continues to have moderate rash. However he states he is eating better and truly has more energy. Since the baclofen addition he has not had any persistent hiccups. He is requesting a Port-A-Cath placement as he was stuck multiple times a day trying to get blood . I tried to discuss with him and his daughter his intent on continuing treatment if he does not want to continue treatment therefore he may not need a port. He is highly motivated to continue treatment at this time. He continues to have persistent weight loss despite eating good for me . His weight today is 218.8 and is down from 229 on December 01, 2019. His weight 2 weeks ago was 219. He continues metformin at a 50 twice daily and is noted that his random glucose was 100 from his labs today. His blood pressure today is 115/74. He states the nausea vomiting have dramatically improved. He has had no further concerns. He denies any constipation. States his bowels are moving well. He denies diarrhea. He denies any new pain. He denies mouth sores, sore throat or difficulty swallowing. He denies any new shortness of breath. He denies any orthopnea. He denies any abdominal pain. He denies neuropathy. He has had no lower extremity edema. He denies any fever, chills or signs of infection for at least the last 72 hours. He denies any COVID-19 symptoms, he did denies any known COVID exposure and denies any personal COVID testing. His ECOG is 2. Past Medical History: Coronary artery disease Diabetes type I Hyperlipidemia Hypertension Sleep Apnea in 2016 Past Surgical History: Appendectomy Cataract excision Cholecystectomy Colonoscopy Coronary artery bypass Allergies: Penicillin V Potassium Medications: Aspirin 1 Tablet (of 81 mg) Tablet, chewable Oral daily Iron Supplement 1 Tablet (of 325 (65 fe) mg) Oral b.i.d. MetFORMIN HCl 1 Tablet (of 850 mg) Oral b.i.d. Metoprolol Tartrate 1 Tablet (of 25 mg) Oral b.i.d. Rosuvastatin Calcium 0.5 Tablet Oral at bedtime on Every Other Day Vitamin D3 1 (2000 Units) Tablet Oral daily Family History: Mr. Braga's mother is . Mr. Braga's father is . unknown family history, brother with history of heart disease. Social History: Mr. Braga is and he is retired. Mr. Braga quit smoking 11 years ago but had smoked 1.5 packs/day for 30 years. He has indicated exposure to the following products: cigarettes. Mr. Braga reports the following support systems: lives alone, lives in own house, supportive family/friends willing to assist with needs, and adequate transportation available for expected visits. His diet consists of regular meals. He indicates his activity level as: daily activities. Review Of Symptoms: Integumentary rash still on face, neck, chest, back. Still itchy but some better. Constitutional Denies fevers, chills, night sweats, excessive fatigue or weight loss. Has some fatigue but no worse than what is has been. Was discharged from [facility] on 12/23/2019 after being admitted for nausea and vomiting and sepsis. Feels much better and no more nausea/vomiting and sepsis has resolved. Allergic/Immunologic No reactions. Eyes Denies significant visual changes. No diplopia. No amaurosis. ENMT Denies changes in hearing, sore throat, mouth sores, difficulty or changes in swallowing ability, and/or sinus drainage. Endocrine No diabetes, thyroid disease or hormone replacement. Denies hot flashes or night sweats. Hematologic/Lymphatic Denies easy bruising or bleeding. The patient denies any tender or palpable lymph nodes. Respiratory Denies dyspnea on exertion, chest pain, cough or hemoptysis. Denies orthopnea. Cardiovascular Denies anginal chest pain, palpitations or orthopnea. Gastrointestinal Denies nausea, vomiting, diarrhea, GI bleeding, or constipation. Denies change in bowel habits and/or stool color, no heartburn or early satiety. Genitourinary (M) Denies hematuria, dysuria, increased frequency, urgency, hesitancy or incontinence. Musculoskeletal Denies joint pain, swelling or redness. No decreased range of motion. Neurologic Denies headache, blurred vision, and no areas of focal weakness or numbness. Normal gait. No sensory problems. Psychiatric Denies insomnia, depression, judith or mood swings. Vital Signs: Performed on Dec 29, 2019 10:01 Height - 67.00 in Weight - 218.8 lbs (LOW) BSA - 2.10 sq.m BMI - 34.27 (HIGH) Temperature - 98.4 F Pulse - 91 /min Respiration - 24 /min BP - 115/74 mm(hg) O2 Sat - 99 % Pain - 0,2 - Ambulatory/capable of all self-care, unable to perform any work activities. Up and about more than 50% of waking hours. (ECOG) Physical Examination: Constitutional Alert, oriented, no acute distress. Skin pink, warm and dry. Head Normocephalic; atraumatic. Eyes Conjunctivae and sclerae are clear and without icterus. Pupils are reactive and equal. Neck Supple without masses or thyromegaly. No jugular venous distension. Hematologic/Lymphatic No petechiae or purpura. No tender or palpable lymph nodes in the cervical or supraclavicular areas. Respiratory Lungs are clear to auscultation without rhonchi or wheezing. Cardiovascular Regular rate and rhythm of heart without murmurs,clicks, gallops or rubs. Abdomen Non-tender, non-distended, no masses, ascites. Back/Spine Non-tender to palpation. Extremities No visible deformities, no cyanosis, clubbing or edema. Musculoskeletal No tenderness or swelling, normal range of motion without obvious weakness. Integumentary Classic maculopapular Vectibix rash on face, chest, arms and upper back. Mild-moderate pustules noted on nose but otherwise moderate rash noted elsewhere. Improved from last visit but still moderate rash-at least grade II. Neurologic No sensory or motor deficits, normal cerebellar function, assisted gait-walks with cane-not new. Psychiatric Alert and oriented times three. Coherent speech. Verbalizes understanding of our discussions today. Laboratory:Test performed on Dec 29, 2019 09:10 Ua Color Yellow Ua Appearance Clear Ua Glucose Norm Ua Bilirubin Neg Ua Ketones 1+ Ua Specific [place] 1.020 Ua Blood Neg Ua pH 5.0 Ua Protein Neg Ua Nitrites Negative Ua Leukocyte Esterase Negative Test performed on Dec 29, 2019 08:55 Sodium 135 mmol/L Potassium 4.4 mmol/L Chloride 99 mmol/L CO2 25 mmol/L Anion Gap 15.4 BUN 15 mg/dL Creatinine 1.0 mg/dL Cr Clearance (Est) 101.9600 mL/min eGFR 73.9 mL/min Glucose 100 mg/dL Osmolality - Calculated 281 mOsm/kg Calcium 9.1 mg/dL Protein, Total 7.4 g/dL Albumin 3.6 g/dL Globulin 3.8 g/dL Bilirubin, Total 0.2 mg/dL ALT (SGPT) 11 U/L AST (SGOT) 21 U/L Alkaline Phosphatase 104 IU/L WBC 8.1 10 3/uL RBC 4.96 10 6/uL HGB 11.5 g/dL HCT 38.0 % MCV 76.6 fL MCH 23.2 pg MCHC 30.3 g/dL RDW 17.1 % Platelet Count 314 10 3/cmm MPV 9.6 fL Neutrophils 5.35 10 3/uL Lymphocytes 1.4 10 3/uL Monocytes 0.9 10 3/uL Eosinophils 0.3 10 3/uL Basophils 0.1 10 3/uL Neutrophil % 66.4 % Lymphocyte % 16.9 % Monocyte % 11.0 % Eosinophil % 3.6 % Basophils % 1.0 % NRBC % 0 % Test performed on Dec 15, 2019 09:48 CEA 19.1 ng/mL Test performed on Oct 27, 2019 09:08 Iron 30 mcg/dL TSH 1.73 uIU/mL Iron Binding Capacity (TIBC) 223 mcg/dl % Iron Saturation 13.4 % UIBC 193 mcg/dL Impression: 1. Low-grade adenocarcinoma of the distal sigmoid colon, stage IV (T3, N1c, M1b). 2. He underwent left hemicolectomy on 07/03/2014. 3. He had non-ST elevation myocardial infarction at initial presentation, and he did require coronary artery bypass surgery prior to the colon resection. 4. During subsequent follow-up he has had enlarging, FDG avid pulmonary nodules, consistent with metastatic disease. He has opted to have just symptomatic/supportive care. His other medical illnesses include: 5. Hypertension. 6. Hyperlipidemia. 7. Type II diabetes. As of his follow-up visit in October [address] scans had continued to show gradual disease progression. His clinical status had remained stable, and he was still not interested in attempting any chemotherapy. He then failed to return for further follow-up. On 03/15/2018 he presented to the emergency room with pain on the left side of his back. He was diagnosed with acute left sciatica, but further evaluation with a renal CT on 03/28/2018 confirm the presence of a 4 x 5 mm ureteral calculus at the left ureteropelvic junction. The CT scan also showed evidence for further progression of the metastatic colon cancer with increase in size of pulmonary nodules, though the change was not all that dramatic given the interval from the previous study. During his further follow-up he has had ongoing problems with the nephrolithiasis. As of his follow-up visit on 10/27/2019 his clinical status appeared stable, but there had been a significant increase in his CEA level, to 41.4 ng/mL. Restaging CT scans of the chest, abdomen, and pelvis on 11/07/2019 showed significant progression of pulmonary and hepatic metastatic disease and development of bulky intra-abdominal and retroperitoneal lymphadenopathy. With that finding, he did agree to trial of therapy with panitumumab as a single agent. He began his initial infusion of panitumumab on 11/17/2019. His further treatment has been on hold due to a severe skin eruption, which developed despite prophylactic dexamethasone. The skin eruption now is showing gradual resolution. However, he comes in now with 3-day history of pain in the left lower back and nausea/vomiting. The symptoms are suspicious for recurrent nephrolithiasis. There has been a significant decline in the CEA level, suggesting that he may be showing response to the treatment. He was also admitted to [facility] on 12/21/2015 with nausea vomiting sepsis orthostatic hypotension acute kidney injury. He presented with hypotension and that his systolic blood pressure was 79 his family brought him to the ER as they felt that he was not alert as he normally is and was very weak in general. He had also been having recurrent nausea vomiting. He had had some intermittent constipation as well. He had perisistent hiccoughs as well. He had been given trazodone to help him sleep was given to him the night before his admission. He is also started on hydrocodone for pain. It was uncertain as the true etiology. His systolic blood pressure was 90 on admission to the ER and after 1 L of saline bolus his systolic improved to 102. He did have a CT of the at chest abdomen pelvis without contrast which reported diffuse pulmonary nodules within both lungs they were too numerous to count. He had several large mass lesions are seen within the left hemothorax no new area of infiltrate was seen. No effusion or pneumothorax. He had extensive coronary calcifications he did not have contrast of the liver was hard to evaluate but the attenuation was mottled and multiple lesions in the liver were felt to be metastatic disease. There is adenopathy in the love hepatis region. Spleen was normal pancreas was normal right adrenal gland was normal but there did appear to be a mass lesion involving the left inferior adrenal gland most likely representing metastatic disease. There were multiple cystic lesions involving the left kidney but no obstructive uropathy. Thickened wall of the esophagus suggesting possible esophagitis. There was extensive adenopathy in the retroperitoneum as well as adenopathy along the area of the renal reba as well as in the root of the mesentery in the upper abdomen also does see metastatic disease from underlying colon cancer. There was scattered degenerative changes seen in the spine. There was no bowel obstruction. Mr. Braga was discharged on lactulose for his bowels, baclofen for hiccoughs. docusate sodium, Zofran, magnesium, vitamin D3, metformin 850 twice daily baby aspirin daily, glipizide 5 mg daily lisinopril 5 mg daily which has recently been stopped by his PCP. He continues on metoprolol 25 mg daily, rosuvastatin, Trazodone, hydrocodone 08/06/2024, iron, pantoprazole 40 mg twice daily. Plan: 1. Hold planned treatment with Vectibix today due to continued rash and recent decrease performance status. 2. We will decrease his metformin to 850 mg daily from a 50 twice daily due to continued weight loss. He reports that his blood sugars are running less than 100 at home when he checks them. He states the highest he can recall the last several days has been 130. 3. Today's labs were reviewed in detail and discussed with Mr. Braga and his daughter and a copy was given to them. WBC 8.1, hemoglobin 11.5, platelets 214,000 ANC is 5300. Potassium 4.4 random glucose 100. Creatinine 1.0 LFTs are normal. His last CEA was December 15, 2019 which time was 19.1 down from 41.4 on October 27, 2019. 4. Mr. Braga has been given a referral to [facility] surgical services for port placement at his request for poor venous access. We did discuss that he will need maintenance of the Port-A-Cath if is not used for chemotherapy but that it could be utilized for lab draws, hydration, treatment. He has endured at least 3 attempts on IV access at each of his visits that have required IV intervention. 5. We will plan to see him back in 2 weeks with CBC CMP and CEA. We will reevaluate at that time whether he can resume the vectibix at a lower dose. If he has not had his port placed within 2 weeks we will wait for port placement and then see him back after that. 6. Mr. Braga was instructed to contact us in the interim should questions or problems arise. 7. Atorvastatin is listed on his allergy list from his summary from his PCP visit on 12/28/2019. Reaction was reported as dizziness. He states that he does not recall ever taking atorvastatin nor having any problems with it. He does verify that he has a penicillin allergy. Signed By: Philip Oscar-, [facility] Xiang Castillo MD <<Signature on File>>
== END 2019-12-29 08:37 | disposition home or self-care (01) ==
LOC: ONCMED 08:39
PROVIDERS: PCP Family Medicine; Visit Provider Nurse Practitioner
DX: C18.7 Malignant neoplasm of sigmoid colon (principal); C78.7 Secondary malignant neoplasm of liver and intrahepatic bile duct; C78.01 Secondary malignant neoplasm of right lung; C78.02 Secondary malignant neoplasm of left lung; C77.2 Secondary and unspecified malignant neoplasm of intra-abdominal lymph nodes; I10 Essential (primary) hypertension; E78.5 Hyperlipidemia, unspecified; E11.9 Type 2 diabetes mellitus without complications; Z79.4 Long term (current) use of insulin; Z79.899 Other long term (current) drug therapy
CPT/HCPCS: 36415; 80053; 81003; 85025; 99214

== ENCOUNTER 2020-01-04 09:21 | Day surgery (SDC) | payer MEDICARE, OTHER, SELFPAY ==
[2020-01-03 13:13] VITALS: BMI 34.4
--- NOTE | 2020-01-04 | SCC_ITS ---
Procedure Done: Placement of PowerPort in the left subclavian vein 55.1 seconds of fluoroscopic guidance, for a cumulative dose of 5.47 mGy, was provided to Dr. Diaz by the radiology department. C-arm images of the chest were saved for the patient's permanent record. [facility]
--- NOTE | 2020-01-04 10:11 | ANES.PREANE2 ---
Pre-Anesthetic Assessment Pre-Anesthetic Assessment: Height/Weight: Height 1.7 m Weight 99.79 kg Preop Diagnosis: Lung Cancer Proposed Procedure: Operation Date: 01/04/20 12:50 Proposed Procedures p Portacath Placement [id number] C79.72(Not Applicable) - Kwabena Diaz MD Familial anesthetic complications: None Was Beta Vin taken within 24 hours: Yes Last intake: Intake Last Liquid Date 01/03/20 Last Liquid Time 18:00 Last Solid Date 01/03/20 Last Solid Time 18:00 Social: Social History: Tobacco Airway: Cervical ROM: WNL MP: 3 Additional comments: very poor dentition - rotting, broken off, patient warned of risk of dental damage Pulmonary: Pulmonary: Sleep apnea and SOB CV/HEM: CV/HEM: CHF and HTN Comments: CABG 6 years ago, on ASA Hx PVCs (15% burden w/ last admission) EF 48% Metabolic: Metabolic: DM and Hyperlipidemia Comments: fatigued Anesthetic Plan: ASA status: 4 Anesthesia: MAC Risk of > 500 ml blood loss (7ml/kg in children): No PFSH Anesthesia PFSH: Medical History CAD (coronary artery disease) Cancer COLON CHF (congestive heart failure), NYHA class I Diabetes Dyslipidemia Fatigue Hypertension Ischemic cardiomyopathy Metastasis PRIYA (obstructive sleep apnea) PVCs (premature ventricular contractions) Shortness of breath Type 2 diabetes mellitus Surgical History Hx of CABG 2014 Family History Other CAD (coronary artery disease) Myocardial infarction Social History Smoking and tobacco status: former smoker Quit status (tobacco): has quit using tobacco Year quit tobacco: 2004 Alcohol intake: never Data Anesthesia Cardiac Studies: No Data to Display
--- NOTE | 2020-01-04 10:17 | SC_ITS ---
WS: [id number] C-arm fluoroscopy view of the left chest, 01/04/2020 Clinical Data: surgery Comparison: None. Findings: A Port-A-Cath has been inserted via the left subclavian vein into the superior vena cava. M idline sternotomy sutures are seen. SC/C-arm FL for CVA [id number] Impression: Insertion of left Port-A-Cath.
--- NOTE | 2020-01-04 10:21 | W.PM.OPSUD ---
Surgery/Procedure H&P Update DATE OF PROCEDURE: January 04, 2020 DATE H&P PERFORMED: 01/03/20 H&P UPDATE INFORMATION: I have reviewed H&P completed within last 30 days, I have examined patient prior to procedure and No changes to prior documentation PREOP DIAGNOSIS: Lung Cancer PLANNED PROCEDURE: Operation Date: 01/04/20 12:50 Proposed Procedures p Portacath Placement [id number] C79.72(Not Applicable) - Kwabena Diaz MD
[2020-01-04] MEDS: sodium chloride 0.9% 1,000 ML 30 ML IV (10:35)
[2020-01-04 10:40] VITALS: BP 96/69; PULSE 87; RESP 18; TEMP 36.8; O2SAT 96
[2020-01-04] MEDS: vancomycin 1,000 MG in sodium chloride 0.9% 250 ML 250 MG IV (10:41)
[2020-01-04 10:47] LABS: Glucose Point of Care 110 mg/dL (70-110)
[2020-01-04] MEDS: heparin, porcine 1,000 unit/mL INJ 10 mL 10000 UNIT INJECTION (11:17)
[2020-01-04] MEDS: lidocaine 1% INJ 20 mL IM (11:30)
[2020-01-04 11:45] VITALS: BP 103/73; PULSE 91; RESP 18; TEMP 36.6; O2SAT 98
[2020-01-04 12:01] VITALS: BP 104/64; PULSE 74; RESP 18; O2SAT 94
--- NOTE | 2020-01-04 12:15 | ANE.PACU2 ---
Inpatient post-anesthesia follow up: Airway intact: Yes Vital signs: Temperature 97.9 F Pulse Rate 74 Respiratory Rate 18 Blood Pressure 104/64 Pulse Oximetry 94 Oxygen Delivery Me thod Room Air Oxygen Flow Rate Fraction of Inspir ed Oxygen Hydration adequate: Yes Nausea and vomiting: No Pain level: 1 Mental status: Baseline
--- NOTE | 2020-01-08 14:12 | PM.OP ---
Operative Report Date of procedure: 01/04/2020 Pre-op Diagnosis: Stage IV colon cancer Post-op diagnosis: same Procedure Done: Placement of PowerPort in the left subclavian vein Fluoroscopic guidance and interpretation for placement of catheter Pathology: none sent Surgeon: Kwabena Diaz Anesthesia: MAC Condition: stable Disposition: PACU Procedure: The patient was taken to the Operating Room and the chest and neck bilaterally were prepped and draped in a sterile manner after the antibiotic had been administered and shoulder rolls had been placed. A total of 10 mL of 1% lidocaine with 0.5% Marcaine was infiltrated under the clavicle on the left side at the site of the planned entry into the subclavian vein. An introducer needle was then used to access the subclavian vein under the clavicle and after withdrawing blood syringe was removed and a guidewire passed under fluoroscopy into the superior vena cava. The site of the planned port was then marked on the chest and a 15 blade was used to make a 3 cm skin incision this was extended into the subcutaneous tissue using electrocautery and a subcutaneous pocket over the pectoralis fascia was created 2-0 Vicryl suture was used to suture the port to the pectoral fascia in the pocket on 3 sides. The catheter, after having been flushed with hep saline, was attached to the tunneler and a tunnel created between the port site and the subclavian vein entry site. Under fluoroscopy the dilator sheath was passed over the guidewire into the proximal superior vena cava. The inner dilator was removed and the sheath left behind and~ the catheter was introduced through the peel-away sheath with the tip in the superior vena cava. The peel-away sheath was removed. The proximal end of the catheter was cut to the right size and was attached to the port. Using a Rivera needle the port was accessed, it withdrew blood easily and flushed easily. A final 5cc of heparin was used to flush the PowerPort. The subcutaneous tissue was approximated using interrupted 3-0 Vicryl sutures and the skin at the introducer site and the port site was closed using subcuticular running 4-0 Monocryl sutures. Surgical glue was applied and the patient was stable throughout the procedure. Fluoroscopic guidance and interpretation was performed for introduction of the guidewire in the left subclavian vein, passage of dilator and placement of catheter tip in the distal superior vena cava.
== END 2020-01-04 12:15 | disposition home or self-care (01) ==
PROVIDERS: PCP Family Medicine; Visit Provider Surgery
PROC: (CPT 36561; principal; 2020-01-04 12:50)
DX: C18.9 Malignant neoplasm of colon, unspecified (principal); I11.0 Hypertensive heart disease with heart failure; I50.9 Heart failure, unspecified; Z95.1 Presence of aortocoronary bypass graft; Z79.82 Long term (current) use of aspirin; E11.9 Type 2 diabetes mellitus without complications; E78.5 Hyperlipidemia, unspecified; I25.10 Atherosclerotic heart disease of native coronary artery without angina pectoris; G47.33 Obstructive sleep apnea (adult) (pediatric)
CPT/HCPCS: 36561; 12345; 36416; 76000; 77001; 82962; C1788; J1644; J2704; J3010; J3370; J3490; J7030; J7050

== ENCOUNTER 2020-01-09 16:18 | Emergency (ER) | payer MEDICARE, OTHER, SELFPAY ==
[2020-01-09 16:50] VITALS: BP 161/98; PULSE 107; RESP 16; TEMP 36.7; O2SAT 95; BMI 32.2
--- NOTE | 2020-01-09 20:26 | W.ED.ABDPA2 ---
HPI - Abdominal Pain General: Chief Complaint: Abdominal Pain Stated Complaint: throwing up/chills/hasnt peed x 1.5 days Time Seen by Provider: 01/09/20 20:13 Source: patient Mode of arrival: ambulatory Limitations: no limitations History of Present Illness: HPI narrative: 69-year-old male with extensive conservative cancers had colon cancer with a colon resection. He currently has liver cancer and is on chemo. He states that over the last 2 days has been having severe lower abdominal pain is worsened. He is also had nausea and vomiting. States pain is sharp in nature and rates it a 6 out of 10. Denies any fevers. Denies any worsening or improving factors. Associated Symptoms: Reports nausea and vomiting; Denies chills, dysuria and fever(s) Review of Systems Const: Denies: fever(s), chills, body aches or change in appetite Eyes: Denies: blurry vision or eye discomfort ENMT: Denies: throat pain or dental pain Card: Denies: chest pain Resp: Denies: dyspnea GI: Reports: abdominal pain, nausea and vomiting : Denies: dysuria Musc: Denies: neck pain or back pain Skin/Breast: Denies: rash Neuro: Denies: headache(s) Psych: Denies: depression Florencio/Lymph: Denies: easy bruising All/Imm: Denies: urticaria PFSH ED PFSH: Medical History CAD (coronary artery disease) Cancer COLON CHF (congestive heart failure), NYHA class I Diabetes Dyslipidemia Fatigue Hypertension Ischemic cardiomyopathy Metastasis PRIYA (obstructive sleep apnea) PVCs (premature ventricular contractions) Shortness of breath Type 2 diabetes mellitus Surgical History Hx of CABG 2014 Port-A-Cath in place (01/04/20) left subclavian Family History Other CAD (coronary artery disease) Myocardial infarction Social History Smoking and tobacco status: former smoker Quit status (tobacco): has quit using tobacco Year quit tobacco: 2004 Alcohol intake: never Physical Exam Const: COMMON NORMALS: no acute distress, patient oriented x3 and healthy appearing HENMT: COMMON NORMALS: normocephalic and atraumatic HEAD & SCALP: normocephalic and atraumatic Eye: COMMON NORMALS: Equal, round and reactive pupils present and EOMs intact bilaterally PUPIL: Yes Equal, round and reactive pupils present Neck/C-Spine: COMMON NORMALS: full ROM and supple Chest: COMMONS NORMALS: normal inspection of the chest and normal palpation of entire chest wall Resp: COMMON NORMALS: normal respiratory effort, No retractions, No use of accessory muscles and clear to auscultation bilaterally AUSCULTATION: clear to auscultation bilaterally Cardio: COMMON NORMALS: regular rate, regular rhythm and No murmurs present (Cardio) RATE: regular rate RHYTHM: regular rhythm GI: COMMON NORMALS: Normal to inspection, nondistended, normoactive bowel sounds present, Soft to palpation and no masses PALPATION: Yes Soft to palpation and Yes Tenderness to palpation present (GI) Details: LLQ and RLQ Extremity: COMMON NORMALS: normal to inspection and full ROM Neuro: COMMON NORMALS: patient oriented x3, moves all extremities and no focal motor deficits Psych: COMMON NORMALS: mental status grossly normal, Normal thought process present and cooperative THOUGHT PROCESS: Normal thought process present Skin: COMMON NORMALS: no rashes or lesions noted and no wounds GENERAL SKIN EXAM: no rashes or lesions noted Course Vital Signs: Vital signs: Vital Signs Temperature 98.1 F 01/09/20 16:50 Pulse Rate 101 H 01/09/20 22:37 Respiratory Rate 20 H 01/09/20 22:37 Blood Pressure 163/101 01/09/20 22:37 Pulse Oximetry 95 01/09/20 22:37 MDM - Abdominal Pain MDM Narrative: Medical decision making narrative: Patient presents here with abdominal pain along with some dysuria. He was found to have a urinary tract infection. CT showed no acute findings and he feels much improved here. He had no more vomiting here. We will place him on Zofran and Keflex for home. He sees Dr. Castillo on . He is return if worsening. He understands and agrees to the plan. Lab Data: Labs: Lab Results 01/09/20 01/09/20 01/09/20 Range/Units 20:35 21:00 21:00 WBC 9.3 (4.0-10.0) 10^3/ uL RBC 5.51 H (4.1-5.3) 10^6/u L Hgb 12.7 (11.7-16.6) g/dL Hct 41.8 L (42.0-52.0) % MCV 75.9 L (80-94) fL MCH 23.0 L (28.0-34.0) pg MCHC 30.4 (30.0-36.0) g/dL RDW 17.2 H (12.1-15.1) % Plt Count 244 (130-400) 10^3/c mm MPV 10.4 (7.4-10.4) fL Neut % (Auto) 74.6 % Lymph % (Auto) 11.5 % Maury % (Auto) 11.3 % Eos % (Auto) 1.2 % Baso % (Auto) 1.0 % Neut # (Auto) 6.91 (1.8-7.7) 10^3/u L Lymph # (Auto) 1.1 (0.8-4.8) 10^3/u L Maury # (Auto) 1.1 H (0.2-0.9) 10^3/u L Eos # (Auto) 0.1 (0.0-0.8) 10^3/u L Baso # (Auto) 0.1 (0.0-0.1) 10^3/u L Nucleated RBC % (a uto) 0 % Nucleated RBCs # 0.0 /100WBC Sodium 137 (136-145) mmol/L Potassium 4.2 (3.5-5.1) mmol/L Chloride 98 (98-107) mmol/L Carbon Dioxide 21 L (22-29) mmol/L Anion Gap 22.2 H (5-19) BUN 17 (8-23) mg/dL Creatinine 1.1 (0.7-1.2) mg/dL GFR Calculation 66.2 L (90-130) mL/min Glucose 98 (65-115) mg/dL Calculated Osmolal ity 286 (285-295) mOsm/k g Lactate (0.5-2.2) mmol/L Calcium 9.5 (8.5-10.5) mg/dL Total Bilirubin 0.4 (0.15-1.2) mg/dL AST 17 (0-40) U/L ALT 10 (0-41) U/L Alkaline Phosphata se 102 (40-130) IU/L Total Protein 7.7 (6.6-8.7) g/dL Albumin 3.7 (3.5-5.2) g/dL Globulin 4.0 (1.3-4.6) g/dL Lipase 16 (13-60) U/L Urine Color Yellow (Yellow) Urine Appearance Sl hazy (CLEAR) Urine pH 5 (5-7) Ur Specific Gravit y 1.030 (1.005-1.030) Urine Protein Neg (Negative) Urine Glucose (UA) Norm (Normal) Urine Ketones 2+ H (Negative) Urine Blood Trace H (Negative) Urine Nitrate Positive H (Negative) Urine Bilirubin Neg (Negative) Urine Urobilinogen Norm (Negative) mg/dL Ur Leukocyte Jayna ase Trace H (Negative) Urine RBC 0-4 H (0-2) /hpf Urine WBC 55-80 H (0-5) /hpf Ur Squamous Epith Cells 0-4 H (0-5) /hpf Amorphous Sediment Not Reportable Urine Bacteria 2+ H (NONE) /hpf Hyaline Casts 0-4 H /lpf 01/08/ Range/Units 21:00 WBC (4.0-10.0) 10^3/ uL RBC (4.1-5.3) 10^6/u L Hgb (11.7-16.6) g/dL Hct (42.0-52.0) % MCV (80-94) fL MCH (28.0-34.0) pg MCHC (30.0-36.0) g/dL RDW (12.1-15.1) % Plt Count (130-400) 10^3/c mm MPV (7.4-10.4) fL Neut % (Auto) % Lymph % (Auto) % Maury % (Auto) % Eos % (Auto) % Baso % (Auto) % Neut # (Auto) (1.8-7.7) 10^3/u L Lymph # (Auto) (0.8-4.8) 10^3/u L Maury # (Auto) (0.2-0.9) 10^3/u L Eos # (Auto) (0.0-0.8) 10^3/u L Baso # (Auto) (0.0-0.1) 10^3/u L Nucleated RBC % (a uto) % Nucleated RBCs # /100WBC Sodium (136-145) mmol/L Potassium (3.5-5.1) mmol/L Chloride (98-107) mmol/L Carbon Dioxide (22-29) mmol/L Anion Gap (5-19) BUN (8-23) mg/dL Creatinine (0.7-1.2) mg/dL GFR Calculation (90-130) mL/min Glucose (65-115) mg/dL Calculated Osmolal ity (285-295) mOsm/k g Lactate 1.1 (0.5-2.2) mmol/L Calcium (8.5-10.5) mg/dL Total Bilirubin (0.15-1.2) mg/dL AST (0-40) U/L ALT (0-41) U/L Alkaline Phosphata se (40-130) IU/L Total Protein (6.6-8.7) g/dL Albumin (3.5-5.2) g/dL Globulin (1.3-4.6) g/dL Lipase (13-60) U/L Urine Color (Yellow) Urine Appearance (CLEAR) Urine pH (5-7) Ur Specific Gravit y (1.005-1.030) Urine Protein (Negative) Urine Glucose (UA) (Normal) Urine Ketones (Negative) Urine Blood (Negative) Urine Nitrate (Negative) Urine Bilirubin (Negative) Urine Urobilinogen (Negative) mg/dL Ur Leukocyte Jayna ase (Negative) Urine RBC (0-2) /hpf Urine WBC (0-5) /hpf Ur Squamous Epith Cells (0-5) /hpf Amorphous Sediment Urine Bacteria (NONE) /hpf Hyaline Casts /lpf Imaging Data ^: CT Abd/Pel: Radiologist's impression: [address] [address] [address] Scan Report Signed Patient: Gulshan Braga Unit #: [id number] : 1950 Age/Sex: 69 / M ADM Date: 01/09/20 Loc: ER Room/Bed: Attending Dr: Ordering Provider/Ordering MD: Isauro Chawla MD Date of Service: 01/09/20 Procedure(s): CT abdomen pelvis w con* [id number] Accession Number(s): [id number] Report Number: [id number] PROCEDURE INFORMATION: Exam: CT Abdomen And Pelvis With Contrast Exam date and time: 01/09/2020 10:00 PM Age: 69 years old Clinical indication: Nausea and other: Diarrhea; Abdominal pain; Prior surgery; Surgery type: Appy, gb, colon, heart; Additional info: Abd pain. Colon cancer with known metastatic disease. TECHNIQUE: Imaging protocol: Computed tomography of the abdomen and pelvis with intravenous contrast. Radiation optimization: All CT scans at this facility use at least one of these dose optimization techniques: automated exposure control; mA and/or kV adjustment per patient size (includes targeted exams where dose is matched to clinical indication); or iterative reconstruction. Contrast material: OMNI 300; Contrast volume: 95 ml; Contrast route: INTRAVENOUS (IV); COMPARISON: CT chest abd pel wo con 12/21/2019 6:29 PM RADIATION DOSE METRICS: Total DLP (mGy-cm): 1321.38 FINDINGS: Lungs: Numerous bilateral pulmonary nodules have slightly increased in size, the largest measuring 6.2 cm in the left lower lobe. Liver: Multiple calcified and noncalcified lesions in the liver measuring up to 4.0 cm are not significantly changed. Stable 1.0 cm nodule in the left pericolic gutter. Gallbladder and bile ducts: Normal. No calcified stones. No ductal dilation. Pancreas: Normal. No ductal dilation. Spleen: Normal. No splenomegaly. Adrenals: Normal. No mass. Kidneys and ureters: Stable left renal cysts. The right kidney is normal. No hydronephrosis. Stomach and bowel: Partial resection of the sigmoid colon. Appendix: No evidence of appendicitis. Intraperitoneal space: Unremarkable. No free air. No significant fluid collection. Vasculature: Unremarkable. No abdominal aortic aneurysm. Lymph nodes: Multiple calcified and noncalcified retrocrural, peripancreatic and retroperitoneal lymph nodes are not significantly changed, measuring up to 4 cm. Urinary bladder: Unremarkable as visualized. Reproductive: Enlarged prostate with calcifications. Bones/joints: Stable nonaggressive appearing lytic lesion in the right iliac bone. Soft tissues: Stable 2.5 cm calcified lesion in the left abdominus rectus muscle. CT/CT abdomen pelvis w con* [id number] IMPRESSION: 1. No acute abnormality identified in the abdomen or pelvis. 2. Slightly worsened pulmonary metastatic disease. 3. Stable hepatic metastatic disease. 4. Stable retroperitoneal, retrocrural, and peripancreatic metastatic lymphadenopathy. 5. Stable 1 cm nodule in the left pericolic gutter, possibly a peritoneal metastasis. Discharge Plan Discharge Patient Disposition: Home Clinical Impression: Abdominal pain Qualifiers: Abdominal location: periumbilical Qualified Code(s): R10.33 - Periumbilical pain Acute cystitis Qualifiers: Hematuria presence: without hematuria Qualified Code(s): N30.00 - Acute cystitis without hematuria Condition: Stable Prescriptions: New Keflex 500 mg capsule 500 mg PO Q6H 7 Days Qty: 28 RF: 0 ondansetron 4 mg tablet,disintegrating 4 mg PO Q6H PRN (Reason: nausea and vomiting) Qty: 14 RF: 0 No Action magnesium oxide 400 mg magnesium capsule 400 mg PO DAILY RF: 0 cholecalciferol (vitamin D3) 50 mcg (2,000 unit) capsule 50 mcg PO DAILY RF: 0 aspirin [Aspir-81] 81 mg tablet,delayed release (DR/EC) 81 mg PO DAILY RF: 0 metformin 850 mg tablet 850 mg PO DAILY RF: 0 glipizide 5 mg tablet 5 mg PO DAILY Qty: 90 RF: 3 metoprolol succinate 25 mg tablet extended release 24 hr 12.5 mg PO DAILY Qty: 45 RF: 3 rosuvastatin 20 mg tablet 20 mg PO DAILY Qty: 90 RF: 3 iron 325 mg (65 mg iron) tablet 325 mg PO BID RF: 0 [place] 5-325 mg tablet 1 tab PO Q6H 7 Days Qty: 20 RF: 0 Discharge Orders: Discharge Order (Routine); Ordered 01/09/20 Ordered By: Isauro Chawla Referrals: Janina Clinton DO [Primary Care Provider] - 1-3 days Discharge Diet: Advance as tolerated Discharge Activity: Resume usual activity Patient Instructions: Urinary Tract Infection in Men (ED), Abdominal Pain (ED) Coding Level of Care Code ED Communications Technician for Chg Fwd Exam Comprehensive
[2020-01-09 20:55] VITALS: BP 167/97; PULSE 106; RESP 18; O2SAT 98
[2020-01-09] MEDS: sodium chloride 0.9% 1,000 ML 999 ML IV (20:57)
[2020-01-09 21:00] VITALS: RESP 18; O2SAT 100
[2020-01-09] MEDS: ondansetron 2 mg/ML SDV 2 mL 4 MG IVP (21:00)
[2020-01-09] MEDS: morphine 4 mg/mL SDV 1 mL IVP (21:00)
[2020-01-09 21:14] LABS: Urine Appearance SL Hazy (CLEAR); Urine Color Yellow (Yellow)
[2020-01-09 21:15] LABS: Add Urine Culture? Yes; Add Urine Microscopic? YES; Bacteria Urine 2+ /hpf; Bilirubin Urine Neg (Negative); Blood Urine Trace (Negative); Glucose Urine UA Norm (Normal); Hyaline Casts Urine 0-4 /lpf; Ketones Urine 2+ (Negative); Leukocyte Esterase Urine Trace (Negative); Nitrate Urine Positive (Negative); Protein Urine Neg (Negative); RBC Urine 0-4 /hpf (0-2); Squamous Epithelial Cell Urine 0-4 /hpf (0-5); Urobilinogen Urine Norm (Negative); WBC Urine 55-80 /hpf (0-5); pH Urine 5 (5-7)
[2020-01-09 21:31] LABS: Basophils # 0.1 10^3/uL (0.0-0.1); Eosinophils # 0.1 10^3/uL (0.0-0.8); Eosinophils % 1.2 %; Hematocrit 41.8 % (42.0-52.0); Hemoglobin 12.7 g/dL (11.7-16.6); Lymphocytes # 1.1 10^3/uL (0.8-4.8); Lymphocytes % 11.5 %; Mean Corpuscular HGB Conc 30.4 g/dL (30.0-36.0); Mean Corpuscular Volume 75.9 fL (80-94); Mean Platelet Volume 10.4 fL (7.4-10.4); Monocytes # 1.1 10^3/uL (0.2-0.9); Monocytes % 11.3 %; Neutrophils # 6.91 10^3/uL (1.8-7.7); Neutrophils % 74.6 %; Nucleated Red Blood Cells % 0 %; Platelet Count 244 10^3/cmm (130-400); Red Blood Count 5.51 10^6/uL (4.1-5.3); Red Cell Distribution Width 17.2 % (12.1-15.1); White Blood Count 9.3 10^3/uL (4.0-10.0)
[2020-01-09] MEDS: cefTRIAXone 1,000 MG in sodium chloride 0.9% (plus) 50 ML 100 MG IV (21:34)
[2020-01-09 21:36] VITALS: BP 166/107; PULSE 98; RESP 19; O2SAT 96
[2020-01-09 21:41] LABS: Lactate (Lactic Acid level) 1.1 mmol/L (0.5-2.2)
[2020-01-09 21:42] LABS: Alanine Aminotransferase 10 U/L (0-41); Albumin Level 3.7 g/dL (3.5-5.2); Alkaline Phosphatase 102 IU/L (40-130); Anion Gap 22.2 (5-19); Aspartate Amino Transferase 17 U/L (0-40); Blood Urea Nitrogen 17 mg/dL (8-23); Calcium 9.5 mg/dL (8.5-10.5); Carbon Dioxide 21 mmol/L (22-29); Chloride 98 mmol/L (98-107); Glomerular Filtration Rate 66.2 mL/min (90-130); Glucose 98 mg/dL (65-115); Lipase 16 U/L (13-60); Osmolality Calculated 286 mOsm/kg (285-295); Potassium 4.2 mmol/L (3.5-5.1); Sodium 137 mmol/L (136-145); Total Bilirubin 0.4 mg/dL (0.15-1.2); Total Protein 7.7 g/dL (6.6-8.7)
[2020-01-09 22:14] VITALS: BP 160/97; PULSE 94; RESP 19; O2SAT 96
[2020-01-09] MEDS: iohexol 300 mg/mL 100 mL Btl IV (22:23)
[2020-01-09 22:37] VITALS: BP 163/101; PULSE 101; RESP 20; O2SAT 95
[2020-01-10 00:10] VITALS: BP 166/100; PULSE 88; RESP 18; O2SAT 97
== END 2020-01-10 00:12 | disposition home or self-care (01) ==
PROVIDERS: Nurse Practitioner Family; Emergency Provider Emergency Medicine; PCP Family Medicine
DX: N30.00 Acute cystitis without hematuria (principal); Z79.82 Long term (current) use of aspirin; Z79.84 Long term (current) use of oral hypoglycemic drugs; I25.10 Atherosclerotic heart disease of native coronary artery without angina pectoris; Z85.038 Personal history of other malignant neoplasm of large intestine; I11.0 Hypertensive heart disease with heart failure; I50.9 Heart failure, unspecified; E78.5 Hyperlipidemia, unspecified; E11.9 Type 2 diabetes mellitus without complications; Z95.1 Presence of aortocoronary bypass graft; Z87.891 Personal history of nicotine dependence
CPT/HCPCS: 12345; 74177; 80053; 81001; 83605; 83690; 85025; 87077; 87086; 87186; 96375; 99283; J0696; J2270; J2405; J7030; Q9967

== ENCOUNTER 2020-01-12 06:00 | Outpatient (CLI) | payer MEDICARE, OTHER, SELFPAY ==
[2020-01-12 10:54] LABS: Basophils # 0.1 10^3/uL (0.0-0.1); Basophils % 1.2 %; Eosinophils # 0.2 10^3/uL (0.0-0.8); Eosinophils % 1.9 %; Hematocrit 39.6 % (42.0-52.0); Hemoglobin 12.2 g/dL (11.7-16.6); Lymphocytes # 1.1 10^3/uL (0.8-4.8); Lymphocytes % 10.7 %; Mean Corpuscular HGB Conc 30.8 g/dL (30.0-36.0); Mean Corpuscular Hemoglobin 23.3 pg (28.0-34.0); Mean Corpuscular Volume 75.7 fL (80-94); Mean Platelet Volume 9.7 fL (7.4-10.4); Monocytes # 0.9 10^3/uL (0.2-0.9); Monocytes % 8.9 %; Neutrophils # 7.72 10^3/uL (1.8-7.7); Neutrophils % 76.8 %; Nucleated Red Blood Cells % 0 %; Platelet Count 257 10^3/cmm (130-400); Red Blood Count 5.23 10^6/uL (4.1-5.3); Red Cell Distribution Width 17.2 % (12.1-15.1); White Blood Count 10.1 10^3/uL (4.0-10.0)
[2020-01-12 11:43] LABS: Alanine Aminotransferase 13 U/L (0-41); Albumin Level 3.8 g/dL (3.5-5.2); Alkaline Phosphatase 118 IU/L (40-130); Anion Gap 14.9 (5-19); Aspartate Amino Transferase 20 U/L (0-40); Blood Urea Nitrogen 15 mg/dL (8-23); Carbon Dioxide 24 mmol/L (22-29); Chloride 99 mmol/L (98-107); Globulin 3.7 g/dL (1.3-4.6); Glomerular Filtration Rate 66.2 mL/min (90-130); Glucose 163 mg/dL (65-115); Osmolality Calculated 282 mOsm/kg (285-295); Potassium 3.9 mmol/L (3.5-5.1); Sodium 134 mmol/L (136-145); Total Bilirubin 0.5 mg/dL (0.15-1.2); Total Protein 7.5 g/dL (6.6-8.7)
[2020-01-12] MEDS: sodium chloride 0.9% 250 ML 999 ML IV (13:01)
--- NOTE | 2020-01-19 14:32 | ONC FU_ITS ---
[facility] Patient Note Patient: Gulshan Braga Unit #: [id number]: 1950 Dictated By: Philip OscarDate of Visit: Jan 12, 2020 Onc MED Follow-Up/Prog Note Chief Complaint: Colon cancer. 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 He had presented with influenza pneumonia and non-ST elevation CT. During anticoagulation in preparation for coronary artery bypass graft surgery he develop significant rectal bleeding. A CT of the abdomen and pelvis on 05/11/2014 showed a mass in the distal sigmoid colon with soft tissue stranding, but no evidence of disease in the liver. There were 2 discrete nodules in the left lower lobe up to 1.1 cm with a patchy foci in the lingula and the left lower lobe. He required a cardiac bypass graft surgery on 05/19/2014. Preoperative staging PET/CT was reportedly performed, but results were not available. He then underwent left hemicolectomy on 07/03/2014. His surgical pathology revealed 6 x 5 cm low-grade adenocarcinoma, invading through muscularis propria into the subserosal adipose tissue. Two tumor deposits were present on the pericolonic adipose tissue. None of the 24 lymph nodes harvested were involved with metastatic disease. No lymphovascular or perineural invasion was identified. Luminal obstruction of more than 70% was present. Margins were negative. Thus, his disease was pathologic stage at least IIIB (pT3, N1c, MX). Mismatch repair analysis was normal, without defect identified. The patient had relocated to [place] from [place], to be closer to his daughter. He moved to the [facility] in August 2014 and established care with the [facility] in [place]. His grade recorder is Dr. Lomas. He was first seen by Dr. Vivas on 03/27/2015. His case was presented on the tumor board, consensus was to offer an adjuvant chemotherapy. In interim he had a CT of the chest/abdomen/pelvis on 04/10/2014 which showed increase in the two left lung nodules to 1.8 and 1.69 cm, concerning for metastatic disease. PET/CT on 05/05/2015 confirmed FDG positive two nodules in the left lung. A CT-guided biopsy on 06/11/2015 showed suspicious cells for malignancy, with only scant specimen available. Thus his disease was stage IV (M1b). Palliative FOLFOX and Avastin was recommended and was planned, but the patient decided against palliative chemotherapy. In the meantime, K-kylah mutation was performed on the original biopsy, and mutations were not detected. He was then followed on observation/symptomatic management. Restaging CT scans of the chest, abdomen, and pelvis on 07/24/2016 showed increasing size left pulmonary nodules/mass with the largest mass of the left lung base measuring 3.1 x 2.6 cm. Overall, four nodules were present with continued slow progression since April [address] Castillo had seen him for a follow-up visit in October 2016. He was still not interested in attempting any chemotherapy treatment, and he then failed to return for further follow-up. On 03/15/2018 he presented to the emergency room with back pain. He had evaluation at that time with lumbar spine CT, which showed no acute findings. He was diagnosed with acute left-sided sciatica and treated symptomatically. He returned to the emergency room on 03/28/2018. His renal CT at that time showed a partially obstructing 4 x 5 mm ureteral calculus at the left ureteropelvic junction. Other findings included prominent portal and celiac lymph nodes, a mass adjacent to the caudate lobe of the liver measuring 2.3 cm, and a low-attenuation lesion in the hepatic dome which appeared suspicious for a metastatic lesion. Also noted were enlarging pulmonary masses in the left lower lobe. Dr Castillo had seen him for a follow-up visit on 04/13/2018. At that point I did request further evaluation with a next generation sequencing study. It showed no actionable mutations. The tumor was noted to be MSI stable. He continued observation/expectant management for the colon cancer. However, he was still having problems related to the kidney stone. He had continued follow-up with Dr. Mckeon and on 06/14/2018 he underwent extracorporeal shockwave lithotripsy for the left distal ureteral stone. He required temporary ureteral stent placement. He had no complications with the procedure, and the stent was later removed. His other medical illnesses include hypertension, hyperlipidemia, type II diabetes, and coronary artery disease. He has a history of smoking a pack and a half of cigarettes daily for 30 years, but he quit smoking more than 10 years ago. INTERIM HISTORY: At his follow-up visit on 04/29/2019 his CEA level had increased to 21.7 ng/mL compared to 8.9 ng/mL in April 2018. However, he was still not interested in considering any treatment. He was then seen for a follow-up visit again on 10/27/2019. At that point his CEA had further increased to 41.4 ng/mL. He then had restaging CT scans of the chest, abdomen, and pelvis on 11/07/2019. Those studies showed significant progression of metastatic disease with increasing pulmonary nodules in both lungs, the largest in the left upper lobe measuring 3.5 x 2.9 cm and in the left lower lobe measuring 4.6 x 4.9 cm. There was progression of metastatic lesions in the right hepatic lobe, the largest measuring 4.3 x 3.4 cm in the dome of the liver and 4.8 cm in the right hepatic lobe laterally. Also noted were multiple enlarged partially calcified lymph nodes in the love hepatis and celiac axis, bulky enlarged retrocrural and gastroesophageal lymph nodes, and bulky periaortic and retroperitoneal lymph nodes, all new from previous studies. He was seen in October [address] findings and to discuss treatment options. His daughter was present with him for that visit. The CT findings and the CT images were reviewed with the patient and his daughter per Dr Castillo. He also discussed the clinical implications. He has had significant disease progression, but over time period which is now in excess of 3 years. He is still not overtly symptomatic with it. Left untreated, it will continue to progress, and we would not be able to predict at what point it may become symptomatic. He has previously not been interested in attempting any treatment for it. However, Dr Castillo did discuss 2 treatment options, one of which would be standard chemotherapy regimen, either FOLFOX or FOLFIRI, in combination with Avastin or panitumumab. Either regimen would have a response rate in the range of 50%, with average survival in the range of 2 years. There would be expected side effects with the chemotherapy. The other option would be a trial of therapy with panitumumab as a single modality. The response rate would be much lower, in the range of 30%. It would have the expected side effect of a skin eruption, but very low risk for any other significant toxicity. Mr. Braga opted to try single agent Panitumumab. He began his first cycle on November 17, 2019. He developed classic moderate vectibix rash on week 2 of cycle 1. He is only had the 1 vectibix treatment. He had significant reaction with classic rash. He has required supportive care with hydration. He was also admitted to [facility] on 12/21/2015 with nausea vomiting sepsis orthostatic hypotension acute kidney injury. He presented with hypotension and that his systolic blood pressure was 79 his family brought him to the ER as they felt that he was not alert as he normally is and was very weak in general. He had also been having recurrent nausea vomiting. He had had some intermittent constipation as well. He had perisistent hiccoughs as well. He had been given trazodone to help him sleep was given to him the night before his admission. He is also started on hydrocodone for pain. It was uncertain as the true etiology. His systolic blood pressure was 90 on admission to the ER and after 1 L of saline bolus his systolic improved to 102. He did have a CT of the at chest abdomen pelvis without contrast which reported diffuse pulmonary nodules within both lungs they were too numerous to count. He had several large mass lesions are seen within the left hemothorax no new area of infiltrate was seen. No effusion or pneumothorax. He had extensive coronary calcifications he did not have contrast of the liver was hard to evaluate but the attenuation was mottled and multiple lesions in the liver were felt to be metastatic disease. There is adenopathy in the love hepatis region. Spleen was normal pancreas was normal right adrenal gland was normal but there did appear to be a mass lesion involving the left inferior adrenal gland most likely representing metastatic disease. There were multiple cystic lesions involving the left kidney but no obstructive uropathy. Thickened wall of the esophagus suggesting possible esophagitis. There was extensive adenopathy in the retroperitoneum as well as adenopathy along the area of the renal reba as well as in the root of the mesentery in the upper abdomen also does see metastatic disease from underlying colon cancer. There was scattered degenerative changes seen in the spine. There was no bowel obstruction. Mr. Braga was discharged on lactulose for his bowels, baclofen for hiccoughs. docusate sodium, Zofran, magnesium, vitamin D3, metformin 850 twice daily baby aspirin daily, glipizide 5 mg daily lisinopril 5 mg daily which has recently been stopped by his PCP. He continues on metoprolol 25 mg daily, rosuvastatin, Trazodone, hydrocodone 08/06/2024, iron, pantoprazole 40 mg twice daily. He did have placement of left subclavian PowerPort per Dr. Diaz on January 04, 2020. Mr. Braga is here today for followup and consideration of treatment with Vectibix. He states overall he is feeling much better. Mr. Braga presented to the ER at [facility] on 01/09/2020 for complaints of chills/ throwing up / has not peed in a day and a half . He was found to have acute cystitis without hematuria. He was discharged on Keflex and Zofran for nausea. He has recovered well. He is here today for follow-up and consideration of resuming the vectibix. He states his rash is completely gone. He states he is ready to try the vectibix again. However he reminds me that he did have nausea with the vectibix last dose. We will give him some IV antiemetics and try to sullivan that off. He states the Zofran ODT's do make him nauseated and sick of the stomach. He states they taste awful . He denies any other concerns. Has had no fever or chills. He denies any nausea or vomiting since discharge from the ER. He denies any new pain. He states his bowels are normal for him. He has had no urinary changes. He states actually he is doing better. He has had no further urinary hesitancy or delay in emptying of his bladder. He is still on the antibiotic/Keflex from ER. He will completed over the next 3 to 4 days. He denies any orthopnea. He denies any abdominal pain. He denies neuropathy. He has had no lower extremity edema. He denies any fever, chills or signs of infection for at least the last 72 hours. He denies any COVID-19 symptoms, he did denies any known COVID exposure and denies any personal COVID testing. His ECOG is 2. Past Medical History: Coronary artery disease Diabetes type I Hyperlipidemia Hypertension Sleep Apnea in 2016 Past Surgical History: Appendectomy Cataract excision Cholecystectomy Colonoscopy Coronary artery bypass PORT PLACEMENT DR. DIAZ Allergies: Penicillin V Potassium Medications: Aspirin 1 Tablet (of 81 mg) Tablet, chewable Oral daily Cephalexin 1 Capsule (of 500 mg) Oral q 6 hours PRN Iron Supplement 1 Tablet (of 325 (65 fe) mg) Oral b.i.d. MetFORMIN HCl 1 Tablet (of 850 mg) Oral b.i.d. Metoprolol Tartrate 1 Tablet (of 25 mg) Oral b.i.d. Ondansetron 1 Tablet (of 4 mg) Tablet Dispersable Oral q 4 hours PRN Rosuvastatin Calcium 0.5 Tablet Oral at bedtime on Every Other Day Vitamin D3 1 (2000 Units) Tablet Oral daily Family History: Mr. Braga's mother is . Mr. Braga's father is . unknown family history, brother with history of heart disease. Social History: Mr. Braga is and he is retired. Mr. Braga quit smoking 11 years ago but had smoked 1.5 packs/day for 30 years. He has indicated exposure to the following products: cigarettes. Mr. Braga reports the following support systems: lives alone, lives in own house, supportive family/friends willing to assist with needs, and adequate transportation available for expected visits. His diet consists of regular meals. He indicates his activity level as: daily activities. Review Of Symptoms: Constitutional Denies fevers, chills, night sweats, excessive fatigue or weight loss. Has some fatigue but no worse than what is has been. Was discharged from [facility] on 01/09/2020 after being seen for unable to void for 36 hours. Allergic/Immunologic No reactions. Eyes Denies significant visual changes. No diplopia. No amaurosis. ENMT Denies changes in hearing, sore throat, mouth sores, difficulty or changes in swallowing ability, and/or sinus drainage. Hematologic/Lymphatic Denies easy bruising or bleeding. The patient denies any tender or palpable lymph nodes. Respiratory Denies dyspnea on exertion, chest pain, cough or hemoptysis. Denies orthopnea. Cardiovascular Denies anginal chest pain, palpitations or orthopnea. Gastrointestinal Denies nausea, vomiting, diarrhea, GI bleeding, or constipation. Denies change in bowel habits and/or stool color, no heartburn or early satiety. Genitourinary (M) Denies hematuria, dysuria, increased frequency, urgency, hesitancy or incontinence. Musculoskeletal Denies joint pain, swelling or redness. No decreased range of motion. Integumentary rash still on face, neck, chest, back. Still itchy but some better. Neurologic Denies headache, blurred vision, and no areas of focal weakness or numbness. Normal gait. No sensory problems. Psychiatric Denies insomnia, depression, judith or mood swings. Vital Signs: Performed on Jan 12, 2020 12:15 Height - 67.00 in Weight - 206.8 lbs (LOW) BSA - 2.05 sq.m BMI - 32.39 (HIGH) Temperature - 98.7 F Pulse - 103 /min (HIGH) Respiration - 24 /min BP - 111/74 mm(hg) O2 Sat - 99 % Pain - 8,2 - Ambulatory/capable of all self-care, unable to perform any work activities. Up and about more than 50% of waking hours. (ECOG) Physical Examination: Integumentary Mild-moderate pustules noted on nose but otherwise mild rash noted elsewhere. Improved from last visit but still signs of previous rah but no scratch corina at present. Constitutional Alert, oriented, no acute distress. Skin pink, warm and dry. Head Normocephalic; atraumatic. Eyes Conjunctivae and sclerae are clear and without icterus. Pupils are reactive and equal. Neck Supple without masses or thyromegaly. No jugular venous distension. Hematologic/Lymphatic No petechiae or purpura. No tender or palpable lymph nodes in the cervical or supraclavicular areas. Respiratory Lungs are clear to auscultation without rhonchi or wheezing. Cardiovascular Regular rate and rhythm of heart without murmurs,clicks, gallops or rubs. Chest Chest is symmetric without chest wall deformities. Abdomen Non-tender, non-distended, no masses, ascites. Back/Spine Non-tender to palpation. Extremities No visible deformities, no cyanosis, clubbing or edema. Musculoskeletal No tenderness or swelling, normal range of motion without obvious weakness. Neurologic No sensory or motor deficits, normal cerebellar function, assisted gait-walks with cane-not new. Psychiatric Alert and oriented times three. Coherent speech. Verbalizes understanding of our discussions today. Laboratory:Test performed on Jan 12, 2020 10:22 Sodium 134 mmol/L Potassium 3.9 mmol/L Chloride 99 mmol/L CO2 24 mmol/L Anion Gap 14.9 BUN 15 mg/dL Creatinine 1.1 mg/dL Cr Clearance (Est) 82.9100 mL/min eGFR 66.2 mL/min Glucose 163 mg/dL Osmolality - Calculated 282 mOsm/kg Calcium 9.0 mg/dL Protein, Total 7.5 g/dL Albumin 3.8 g/dL Globulin 3.7 g/dL Bilirubin, Total 0.5 mg/dL ALT (SGPT) 13 U/L AST (SGOT) 20 U/L Alkaline Phosphatase 118 IU/L WBC 10.1 10 3/uL RBC 5.23 10 6/uL HGB 12.2 g/dL HCT 39.6 % MCV 75.7 fL MCH 23.3 pg MCHC 30.8 g/dL RDW 17.2 % Platelet Count 257 10 3/cmm MPV 9.7 fL Neutrophils 7.72 10 3/uL Lymphocytes 1.1 10 3/uL Monocytes 0.9 10 3/uL Eosinophils 0.2 10 3/uL Basophils 0.1 10 3/uL Neutrophil % 76.8 % Lymphocyte % 10.7 % Monocyte % 8.9 % Eosinophil % 1.9 % Basophils % 1.2 % NRBC % 0 % CEA 27.0 ng/m Impression: 1. Low-grade adenocarcinoma of the distal sigmoid colon, stage IV (T3, N1c, M1b). 2. He underwent left hemicolectomy on 07/03/2014. 3. He had non-ST elevation myocardial infarction at initial presentation, and he did require coronary artery bypass surgery prior to the colon resection. 4. During subsequent follow-up he has had enlarging, FDG avid pulmonary nodules, consistent with metastatic disease. He has opted to have just symptomatic/supportive care. His other medical illnesses include: 5. Hypertension. 6. Hyperlipidemia. 7. Type II diabetes. As of his follow-up visit in October [address] scans had continued to show gradual disease progression. His clinical status had remained stable, and he was still not interested in attempting any chemotherapy. He then failed to return for further follow-up. On 03/15/2018 he presented to the emergency room with pain on the left side of his back. He was diagnosed with acute left sciatica, but further evaluation with a renal CT on 03/28/2018 confirm the presence of a 4 x 5 mm ureteral calculus at the left ureteropelvic junction. The CT scan also showed evidence for further progression of the metastatic colon cancer with increase in size of pulmonary nodules, though the change was not all that dramatic given the interval from the previous study. During his further follow-up he has had ongoing problems with the nephrolithiasis. As of his follow-up visit on 10/27/2019 his clinical status appeared stable, but there had been a significant increase in his CEA level, to 41.4 ng/mL. Restaging CT scans of the chest, abdomen, and pelvis on 11/07/2019 showed significant progression of pulmonary and hepatic metastatic disease and development of bulky intra-abdominal and retroperitoneal lymphadenopathy. With that finding, he did agree to trial of therapy with panitumumab as a single agent. He began his initial infusion of panitumumab on 11/17/2019. His further treatment has been on hold due to a severe skin eruption, which developed despite prophylactic dexamethasone. The skin eruption now is showing gradual resolution. However, he comes in now with 3-day history of pain in the left lower back and nausea/vomiting. The symptoms are suspicious for recurrent nephrolithiasis. There has been a significant decline in the CEA level, suggesting that he may be showing response to the treatment. He was also admitted to [facility] on 12/21/2015 with nausea vomiting sepsis orthostatic hypotension acute kidney injury. He presented with hypotension and that his systolic blood pressure was 79 his family brought him to the ER as they felt that he was not alert as he normally is and was very weak in general. He had also been having recurrent nausea vomiting. He had had some intermittent constipation as well. He had perisistent hiccoughs as well. He had been given trazodone to help him sleep was given to him the night before his admission. He is also started on hydrocodone for pain. It was uncertain as the true etiology. His systolic blood pressure was 90 on admission to the ER and after 1 L of saline bolus his systolic improved to 102. He did have a CT of the at chest abdomen pelvis without contrast which reported diffuse pulmonary nodules within both lungs they were too numerous to count. He had several large mass lesions are seen within the left hemothorax no new area of infiltrate was seen. No effusion or pneumothorax. He had extensive coronary calcifications he did not have contrast of the liver was hard to evaluate but the attenuation was mottled and multiple lesions in the liver were felt to be metastatic disease. There is adenopathy in the love hepatis region. Spleen was normal pancreas was normal right adrenal gland was normal but there did appear to be a mass lesion involving the left inferior adrenal gland most likely representing metastatic disease. There were multiple cystic lesions involving the left kidney but no obstructive uropathy. Thickened wall of the esophagus suggesting possible esophagitis. There was extensive adenopathy in the retroperitoneum as well as adenopathy along the area of the renal reba as well as in the root of the mesentery in the upper abdomen also does see metastatic disease from underlying colon cancer. There was scattered degenerative changes seen in the spine. There was no bowel obstruction. Mr. Braga was discharged on lactulose for his bowels, baclofen for hiccoughs. docusate sodium, Zofran, magnesium, vitamin D3, metformin 850 twice daily baby aspirin daily, glipizide 5 mg daily lisinopril 5 mg daily which has recently been stopped by his PCP. He continues on metoprolol 25 mg daily, rosuvastatin, Trazodone, hydrocodone 08/06/2024, iron, pantoprazole 40 mg twice daily. He did have placement of left subclavian PowerPort per Dr. Diaz on January 04, 2020. Mr. Braga presented to the ER at [facility] on 01/09/2020 for complaints of chills/ throwing up / has not peed in a day and a half . He was found to have acute cystitis without hematuria. He was discharged on Keflex and Zofran for nausea. He has recovered well. Plan: 1. Proceed with Vectibix at reduced dose today due to continued rash and recent decrease performance status. 2. We will continue his metformin at 500 twice daily due to continued weight loss. He reports that his blood sugars have been stable. 3. Today's labs were reviewed in detail and discussed with Mr. Braga and a copy was given to him. WBC 10.1, hemoglobin 12.2, platelets 257,000 ANC is 7700. Potassium 3.9 random glucose 163. Creatinine 1.1 LFTs are normal. His last CEA was on 01/12/2020 = 27.0. On December 15, 2019 it was 19.1-down from 41.4 on October 27, 2019. 4. We will send in a prescription for regular Zofran 4 to 8 mg as needed as needed nausea. He does not tolerate ODT due to the taste. He states they make him sick. 5. We will plan to see him back in 2 weeks with CBC CMP and CEA. We will reevaluate at that time whether he can continue the vectibix at a lower dose. 6. Mr. Braga was instructed to contact us in the interim should questions or problems arise. 7. Atorvastatin is listed on his allergy list from his summary from his PCP visit on 12/28/2019. Reaction was reported as dizziness. He states that he does not recall ever taking atorvastatin nor having any problems with it. He does verify that he has a penicillin allergy. Signed By: Philip Oscar-, [facility] Xiang Castillo MD <<Signature on File>>
== END 2020-01-12 06:01 | disposition home or self-care (01) ==
LOC: ONCMED 06:03
PROVIDERS: PCP Family Medicine; Visit Provider Nurse Practitioner
DX: Z51.12 Encounter for antineoplastic immunotherapy (principal); C18.7 Malignant neoplasm of sigmoid colon; C78.7 Secondary malignant neoplasm of liver and intrahepatic bile duct; C78.01 Secondary malignant neoplasm of right lung; C78.02 Secondary malignant neoplasm of left lung; C77.2 Secondary and unspecified malignant neoplasm of intra-abdominal lymph nodes; I10 Essential (primary) hypertension; E78.5 Hyperlipidemia, unspecified; E11.9 Type 2 diabetes mellitus without complications; N30.00 Acute cystitis without hematuria; Z87.442 Personal history of urinary calculi; R21 Rash and other nonspecific skin eruption; Z79.84 Long term (current) use of oral hypoglycemic drugs; Z79.899 Other long term (current) drug therapy
CPT/HCPCS: 80053; 82378; 85025; 96367; 96413; 99214; J1200; J2405; J3490; J7050; J9303

== ENCOUNTER 2020-01-26 05:52 | Outpatient (CLI) | payer MEDICARE, OTHER, SELFPAY ==
[2020-01-26 08:19] LABS: Basophils # 0.1 10^3/uL (0.0-0.1); Basophils % 1.4 %; Eosinophils # 0.4 10^3/uL (0.0-0.8); Eosinophils % 4.2 %; Hematocrit 39.4 % (42.0-52.0); Hemoglobin 11.9 g/dL (11.7-16.6); Lymphocytes # 1.4 10^3/uL (0.8-4.8); Mean Corpuscular HGB Conc 30.2 g/dL (30.0-36.0); Mean Corpuscular Hemoglobin 23.4 pg (28.0-34.0); Mean Corpuscular Volume 77.4 fL (80-94); Mean Platelet Volume 9.3 fL (7.4-10.4); Monocytes # 0.7 10^3/uL (0.2-0.9); Monocytes % 8.3 %; Neutrophils # 5.78 10^3/uL (1.8-7.7); Neutrophils % 68.6 %; Nucleated Red Blood Cells % 0 %; Platelet Count 187 10^3/cmm (130-400); Red Blood Count 5.09 10^6/uL (4.1-5.3); Red Cell Distribution Width 18.9 % (12.1-15.1); White Blood Count 8.4 10^3/uL (4.0-10.0)
[2020-01-26 08:40] LABS: Alanine Aminotransferase 32 U/L (0-41); Albumin Level 3.6 g/dL (3.5-5.2); Alkaline Phosphatase 104 IU/L (40-130); Anion Gap 13.3 (5-19); Aspartate Amino Transferase 24 U/L (0-40); Blood Urea Nitrogen 18 mg/dL (8-23); Carbon Dioxide 24 mmol/L (22-29); Chloride 104 mmol/L (98-107); Globulin 3.1 g/dL (1.3-4.6); Glomerular Filtration Rate 59.9 mL/min (90-130); Glucose 81 mg/dL (65-115); Osmolality Calculated 285 mOsm/kg (285-295); Potassium 4.3 mmol/L (3.5-5.1); Sodium 137 mmol/L (136-145); Total Bilirubin 0.4 mg/dL (0.15-1.2); Total Protein 6.7 g/dL (6.6-8.7)
[2020-01-26] MEDS: sodium chloride 0.9% 250 ML 75 ML IV (10:21)
--- NOTE | 2020-01-28 14:27 | ONC FU_ITS ---
[facility] Patient Note Patient: Gulshan Braga Unit #: [id number]: 1950 Dictated By: Philip OscarDate of Visit: Jan 26, 2020 Onc MED Follow-Up/Prog Note Chief Complaint: Colon cancer. 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 He had presented with influenza pneumonia and non-ST elevation [place]. During anticoagulation in preparation for coronary artery bypass graft surgery he develop significant rectal bleeding. A CT of the abdomen and pelvis on 05/11/2014 showed a mass in the distal sigmoid colon with soft tissue stranding, but no evidence of disease in the liver. There were 2 discrete nodules in the left lower lobe up to 1.1 cm with a patchy foci in the lingula and the left lower lobe. He required a cardiac bypass graft surgery on 05/19/2014. Preoperative staging PET/CT was reportedly performed, but results were not available. He then underwent left hemicolectomy on 07/03/2014. His surgical pathology revealed 6 x 5 cm low-grade adenocarcinoma, invading through muscularis propria into the subserosal adipose tissue. Two tumor deposits were present on the pericolonic adipose tissue. None of the 24 lymph nodes harvested were involved with metastatic disease. No lymphovascular or perineural invasion was identified. Luminal obstruction of more than 70% was present. Margins were negative. Thus, his disease was pathologic stage at least IIIB (pT3, N1c, MX). Mismatch repair analysis was normal, without defect identified. The patient had relocated to [place] from [place], to be closer to his daughter. He moved to the [facility] in August 2014 and established care with the [facility] in [place]. His tester compressed gases is Dr. Lomas. He was first seen by Dr. Vivas on 03/27/2015. His case was presented on the tumor board, consensus was to offer an adjuvant chemotherapy. In interim he had a CT of the chest/abdomen/pelvis on 04/10/2014 which showed increase in the two left lung nodules to 1.8 and 1.69 cm, concerning for metastatic disease. PET/CT on 05/05/2015 confirmed FDG positive two nodules in the left lung. A CT-guided biopsy on 06/11/2015 showed suspicious cells for malignancy, with only scant specimen available. Thus his disease was stage IV (M1b). Palliative FOLFOX and Avastin was recommended and was planned, but the patient decided against palliative chemotherapy. In the meantime, K-kylah mutation was performed on the original biopsy, and mutations were not detected. He was then followed on observation/symptomatic management. Restaging CT scans of the chest, abdomen, and pelvis on 07/24/2016 showed increasing size left pulmonary nodules/mass with the largest mass of the left lung base measuring 3.1 x 2.6 cm. Overall, four nodules were present with continued slow progression since April [address] Castillo had seen him for a follow-up visit in October 2016. He was still not interested in attempting any chemotherapy treatment, and he then failed to return for further follow-up. On 03/15/2018 he presented to the emergency room with back pain. He had evaluation at that time with lumbar spine CT, which showed no acute findings. He was diagnosed with acute left-sided sciatica and treated symptomatically. He returned to the emergency room on 03/28/2018. His renal CT at that time showed a partially obstructing 4 x 5 mm ureteral calculus at the left ureteropelvic junction. Other findings included prominent portal and celiac lymph nodes, a mass adjacent to the caudate lobe of the liver measuring 2.3 cm, and a low-attenuation lesion in the hepatic dome which appeared suspicious for a metastatic lesion. Also noted were enlarging pulmonary masses in the left lower lobe. Dr Castillo had seen him for a follow-up visit on 04/13/2018. At that point I did request further evaluation with a next generation sequencing study. It showed no actionable mutations. The tumor was noted to be MSI stable. He continued observation/expectant management for the colon cancer. However, he was still having problems related to the kidney stone. He had continued follow-up with Dr. Mckeon and on 06/14/2018 he underwent extracorporeal shockwave lithotripsy for the left distal ureteral stone. He required temporary ureteral stent placement. He had no complications with the procedure, and the stent was later removed. His other medical illnesses include hypertension, hyperlipidemia, type II diabetes, and coronary artery disease. He has a history of smoking a pack and a half of cigarettes daily for 30 years, but he quit smoking more than 10 years ago. INTERIM HISTORY: At his follow-up visit on 04/29/2019 his CEA level had increased to 21.7 ng/mL compared to 8.9 ng/mL in April 2018. However, he was still not interested in considering any treatment. He was then seen for a follow-up visit again on 10/27/2019. At that point his CEA had further increased to 41.4 ng/mL. He then had restaging CT scans of the chest, abdomen, and pelvis on 11/07/2019. Those studies showed significant progression of metastatic disease with increasing pulmonary nodules in both lungs, the largest in the left upper lobe measuring 3.5 x 2.9 cm and in the left lower lobe measuring 4.6 x 4.9 cm. There was progression of metastatic lesions in the right hepatic lobe, the largest measuring 4.3 x 3.4 cm in the dome of the liver and 4.8 cm in the right hepatic lobe laterally. Also noted were multiple enlarged partially calcified lymph nodes in the love hepatis and celiac axis, bulky enlarged retrocrural and gastroesophageal lymph nodes, and bulky periaortic and retroperitoneal lymph nodes, all new from previous studies. He was seen in October [address] findings and to discuss treatment options. His daughter was present with him for that visit. The CT findings and the CT images were reviewed with the patient and his daughter per Dr Castillo. He also discussed the clinical implications. He has had significant disease progression, but over time period which is now in excess of 3 years. He is still not overtly symptomatic with it. Left untreated, it will continue to progress, and we would not be able to predict at what point it may become symptomatic. He has previously not been interested in attempting any treatment for it. However, Dr Castillo did discuss 2 treatment options, one of which would be standard chemotherapy regimen, either FOLFOX or FOLFIRI, in combination with Avastin or panitumumab. Either regimen would have a response rate in the range of 50%, with average survival in the range of 2 years. There would be expected side effects with the chemotherapy. The other option would be a trial of therapy with panitumumab as a single modality. The response rate would be much lower, in the range of 30%. It would have the expected side effect of a skin eruption, but very low risk for any other significant toxicity. Mr. Braga opted to try single agent Panitumumab. He began his first cycle on November 17, 2019. He developed classic moderate vectibix rash on week 2 of cycle 1. He had only had the 1 vectibix treatment. He had significant reaction with classic rash. He required supportive care with hydration. He was also admitted to [facility] on 12/21/2015 with nausea vomiting sepsis orthostatic hypotension acute kidney injury. He presented with hypotension and that his systolic blood pressure was 79 his family brought him to the ER as they felt that he was not alert as he normally is and was very weak in general. He had also been having recurrent nausea vomiting. He had had some intermittent constipation as well. He had perisistent hiccoughs as well. He had been given trazodone to help him sleep was given to him the night before his admission. He is also started on hydrocodone for pain. It was uncertain as the true etiology. His systolic blood pressure was 90 on admission to the ER and after 1 L of saline bolus his systolic improved to 102. He did have a CT of the at chest abdomen pelvis without contrast which reported diffuse pulmonary nodules within both lungs they were too numerous to count. He had several large mass lesions are seen within the left hemothorax no new area of infiltrate was seen. No effusion or pneumothorax. He had extensive coronary calcifications he did not have contrast of the liver was hard to evaluate but the attenuation was mottled and multiple lesions in the liver were felt to be metastatic disease. There is adenopathy in the love hepatis region. Spleen was normal pancreas was normal right adrenal gland was normal but there did appear to be a mass lesion involving the left inferior adrenal gland most likely representing metastatic disease. There were multiple cystic lesions involving the left kidney but no obstructive uropathy. Thickened wall of the esophagus suggesting possible esophagitis. There was extensive adenopathy in the retroperitoneum as well as adenopathy along the area of the renal reba as well as in the root of the mesentery in the upper abdomen also does see metastatic disease from underlying colon cancer. There was scattered degenerative changes seen in the spine. There was no bowel obstruction. Mr. Braga was discharged on lactulose for his bowels, baclofen for hiccoughs. docusate sodium, Zofran, magnesium, vitamin D3, metformin 850 twice daily baby aspirin daily, glipizide 5 mg daily lisinopril 5 mg daily which has recently been stopped by his PCP. He continues on metoprolol 25 mg daily, rosuvastatin, Trazodone, hydrocodone 08/06/2024, iron, pantoprazole 40 mg twice daily. He did have placement of left subclavian PowerPort per Dr. Diaz on January 04, 2020. He did resume Mr. Braga is here today for followup and consideration of treatment with Vectibix. Vectibix on November 12, 2019 at reduced dosing. He is here today for follow-up and consideration of his next cycle. He has mild to moderate rash but states overall he thinks it is much better. He states that his he feels clear headed and feels better overall. He has been off his Metformin for a week to 10 days now. He states that his fasting blood sugar this morning was 71. He states he takes some Mylanta at night occasionally for acid reflux and is had the best sleep of had a long time. He denies any pain. He denies any nausea or vomiting. He states he is eating good. He is watching his diet a little better is a do not want to regain all the weight of lost . He states his energy is good. When asked about the rash and how he felt the severity was he states he thinks it is much better than what it has been with the full dosing. He request to proceed with vectibix today as scheduled. His ECOG is 1. Past Medical History: Coronary artery disease Diabetes type I Hyperlipidemia Hypertension Sleep Apnea in 2016 Past Surgical History: Appendectomy Cataract excision Cholecystectomy Colonoscopy Coronary artery bypass PORT PLACEMENT DR. DIAZ Allergies: Penicillin V Potassium Medications: Aspirin 1 Tablet (of 81 mg) Tablet, chewable Oral daily Cephalexin 1 Capsule (of 500 mg) Oral q 6 hours PRN Iron Supplement 1 Tablet (of 325 (65 fe) mg) Oral b.i.d. Metoprolol Tartrate 1 Tablet (of 25 mg) Oral b.i.d. Ondansetron 1 Tablet (of 4 mg) Tablet Dispersable Oral q 4 hours PRN Rosuvastatin Calcium 0.5 Tablet Oral at bedtime on Every Other Day Vitamin D3 1 (2000 Units) Tablet Oral daily Family History: Mr. Braga's mother is . Mr. Braga's father is . unknown family history, brother with history of heart disease. Social History: Mr. Braga is and he is retired. Mr. Braga quit smoking 11 years ago but had smoked 1.5 packs/day for 30 years. He has indicated exposure to the following products: cigarettes. Mr. Braga reports the following support systems: lives alone, lives in own house, supportive family/friends willing to assist with needs, and adequate transportation available for expected visits. His diet consists of regular meals. He indicates his activity level as: daily activities. Review Of Symptoms: Constitutional Denies fevers, chills, night sweats, excessive fatigue or weight loss. He states since stopping the Metformin he feels clearheaded and better overall . Allergic/Immunologic No reactions. Eyes Denies significant visual changes. No diplopia. No amaurosis. ENMT Denies changes in hearing, sore throat, mouth sores, difficulty or changes in swallowing ability, and/or sinus drainage. Endocrine No diabetes, thyroid disease or hormone replacement. Denies hot flashes or night sweats. Hematologic/Lymphatic Denies easy bruising or bleeding. The patient denies any tender or palpable lymph nodes. Respiratory Denies dyspnea on exertion, chest pain, cough or hemoptysis. Denies orthopnea. Cardiovascular Denies anginal chest pain, palpitations or orthopnea. Gastrointestinal Denies nausea, vomiting, diarrhea, GI bleeding, or constipation. Denies change in bowel habits and/or stool color, no heartburn or early satiety. He states he has a little gastritis from time to time. He takes Mylanta at night and states that this gives him the best sleep that he is had in a long time. Genitourinary (M) Denies hematuria, dysuria, increased frequency, urgency, hesitancy or incontinence. Musculoskeletal Denies joint pain, swelling or redness. No decreased range of motion. Integumentary rash on face, neck, chest, back. Neurologic Denies headache, blurred vision, and no areas of focal weakness or numbness. Normal gait. No sensory problems. Psychiatric Denies insomnia, depression, judith or mood swings. Vital Signs: Performed on Jan 26, 2020 09:29 Height - 67.00 in Weight - 212.8 lbs (HIGH) BSA - 2.08 sq.m BMI - 33.33 (HIGH) Temperature - 98.7 F Pulse - 67 /min Respiration - 22 /min BP - 116/67 mm(hg) O2 Sat - 99 % Pain - 0,1 - No physically strenuous activity, but ambulatory and able to carry out light or sedentary work (e.g. office work, light house work). (ECOG) Physical Examination: Constitutional Alert, oriented, no acute distress. Skin pink, warm and dry. Head Normocephalic; atraumatic. Eyes Conjunctivae and sclerae are clear and without icterus. Pupils are reactive and equal. Neck Supple without masses or thyromegaly. No jugular venous distension. Hematologic/Lymphatic No petechiae or purpura. No tender or palpable lymph nodes in the cervical or supraclavicular areas. Respiratory Lungs are clear to auscultation without rhonchi or wheezing. Cardiovascular Regular rate and rhythm of heart without murmurs,clicks, gallops or rubs. Chest Left subclavian Port-A-Cath site has healed well. It is unremarkable. Abdomen Non-tender, non-distended, no masses, ascites. Back/Spine Non-tender to palpation. Extremities No visible deformities, no cyanosis, clubbing or edema. Musculoskeletal No tenderness or swelling, normal range of motion without obvious weakness. Integumentary Mild-moderate raised, red lesions noted on nose but otherwise mild rash noted on anterior chest and upper arms-no pustules. Neurologic No sensory or motor deficits, normal cerebellar function, assisted gait-walks with cane-not new. Psychiatric Alert and oriented times three. Coherent speech. Verbalizes understanding of our discussions today. Laboratory:Test performed on Jan 26, 2020 08:06 Sodium 137 mmol/L Potassium 4.3 mmol/L Chloride 104 mmol/L CO2 24 mmol/L Anion Gap 13.3 BUN 18 mg/dL Creatinine 1.2 mg/dL Cr Clearance (Est) 76.0000 mL/min eGFR 59.9 mL/min Glucose 81 mg/dL Osmolality - Calculated 285 mOsm/kg Calcium 9.0 mg/dL Protein, Total 6.7 g/dL Albumin 3.6 g/dL Globulin 3.1 g/dL Bilirubin, Total 0.4 mg/dL ALT (SGPT) 32 U/L AST (SGOT) 24 U/L Alkaline Phosphatase 104 IU/L WBC 8.4 10 3/uL RBC 5.09 10 6/uL HGB 11.9 g/dL HCT 39.4 % MCV 77.4 fL MCH 23.4 pg MCHC 30.2 g/dL RDW 18.9 % Platelet Count 187 10 3/cmm MPV 9.3 fL Neutrophils 5.78 10 3/uL Lymphocytes 1.4 10 3/uL Monocytes 0.7 10 3/uL Eosinophils 0.4 10 3/uL Basophils 0.1 10 3/uL Neutrophil % 68.6 % Lymphocyte % 17.0 % Monocyte % 8.3 % Eosinophil % 4.2 % Basophils % 1.4 % NRBC % 0 % Test performed on Jan 12, 2020 10:22 CEA 27.0 ng/mL Test performed on Dec 29, 2019 09:10 Ua Color Yellow Ua Appearance Clear Ua Glucose Norm Ua Bilirubin Neg Ua Ketones 1+ Ua Specific [place] 1.020 Ua Blood Neg Ua pH 5.0 Ua Protein Neg Ua Nitrites Negative Ua Leukocyte Esterase Negative Test performed on Oct 27, 2019 09:08 Iron 30 mcg/dL TSH 1.73 uIU/mL Iron Binding Capacity (TIBC) 223 mcg/dl % Iron Saturation 13.4 % UIBC 193 mcg/dL Impression: 1. Low-grade adenocarcinoma of the distal sigmoid colon, stage IV (T3, N1c, M1b). 2. He underwent left hemicolectomy on 07/03/2014. 3. He had non-ST elevation myocardial infarction at initial presentation, and he did require coronary artery bypass surgery prior to the colon resection. 4. During subsequent follow-up he has had enlarging, FDG avid pulmonary nodules, consistent with metastatic disease. He has opted to have just symptomatic/supportive care. His other medical illnesses include: 5. Hypertension. 6. Hyperlipidemia. 7. Type II diabetes. As of his follow-up visit in October [address] scans had continued to show gradual disease progression. His clinical status had remained stable, and he was still not interested in attempting any chemotherapy. He then failed to return for further follow-up. On 03/15/2018 he presented to the emergency room with pain on the left side of his back. He was diagnosed with acute left sciatica, but further evaluation with a renal CT on 03/28/2018 confirm the presence of a 4 x 5 mm ureteral calculus at the left ureteropelvic junction. The CT scan also showed evidence for further progression of the metastatic colon cancer with increase in size of pulmonary nodules, though the change was not all that dramatic given the interval from the previous study. During his further follow-up he has had ongoing problems with the nephrolithiasis. As of his follow-up visit on 10/27/2019 his clinical status appeared stable, but there had been a significant increase in his CEA level, to 41.4 ng/mL. Restaging CT scans of the chest, abdomen, and pelvis on 11/07/2019 showed significant progression of pulmonary and hepatic metastatic disease and development of bulky intra-abdominal and retroperitoneal lymphadenopathy. With that finding, he did agree to trial of therapy with panitumumab as a single agent. He began his initial infusion of panitumumab on 11/17/2019. His further treatment has been on hold due to a severe skin eruption, which developed despite prophylactic dexamethasone. The skin eruption now is showing gradual resolution. However, he comes in now with 3-day history of pain in the left lower back and nausea/vomiting. The symptoms are suspicious for recurrent nephrolithiasis. There has been a significant decline in the CEA level, suggesting that he may be showing response to the treatment. He was also admitted to [facility] on 12/21/2015 with nausea vomiting sepsis orthostatic hypotension acute kidney injury. He presented with hypotension and that his systolic blood pressure was 79 his family brought him to the ER as they felt that he was not alert as he normally is and was very weak in general. He had also been having recurrent nausea vomiting. He had had some intermittent constipation as well. He had perisistent hiccoughs as well. He had been given trazodone to help him sleep was given to him the night before his admission. He is also started on hydrocodone for pain. It was uncertain as the true etiology. His systolic blood pressure was 90 on admission to the ER and after 1 L of saline bolus his systolic improved to 102. He did have a CT of the at chest abdomen pelvis without contrast which reported diffuse pulmonary nodules within both lungs they were too numerous to count. He had several large mass lesions are seen within the left hemothorax no new area of infiltrate was seen. No effusion or pneumothorax. He had extensive coronary calcifications he did not have contrast of the liver was hard to evaluate but the attenuation was mottled and multiple lesions in the liver were felt to be metastatic disease. There is adenopathy in the love hepatis region. Spleen was normal pancreas was normal right adrenal gland was normal but there did appear to be a mass lesion involving the left inferior adrenal gland most likely representing metastatic disease. There were multiple cystic lesions involving the left kidney but no obstructive uropathy. Thickened wall of the esophagus suggesting possible esophagitis. There was extensive adenopathy in the retroperitoneum as well as adenopathy along the area of the renal reba as well as in the root of the mesentery in the upper abdomen also does see metastatic disease from underlying colon cancer. There was scattered degenerative changes seen in the spine. There was no bowel obstruction. Mr. Braga was discharged on lactulose for his bowels, baclofen for hiccoughs. docusate sodium, Zofran, magnesium, vitamin D3, metformin 850 twice daily baby aspirin daily, glipizide 5 mg daily lisinopril 5 mg daily which has recently been stopped by his PCP. He continues on metoprolol 25 mg daily, rosuvastatin, Trazodone, hydrocodone 08/06/2024, iron, pantoprazole 40 mg twice daily. He did have placement of left subclavian PowerPort per Dr. Diaz on January 04, 2020. Mr. Braga presented to the ER at [facility] on 01/09/2020 for complaints of chills/ throwing up / has not peed in a day and a half . He was found to have acute cystitis without hematuria. He was discharged on Keflex and Zofran for nausea. He has recovered well. He resumed the Vectibix on November 12, 2019 at reduced dose. He has tolerated this well. He feels the rash is minimal compared to what it was in the past. Plan: 1. Proceed with Vectibix at the reduced dose today due to continued rash. 2. He has stopped his metformin altogether and states he feels much better. 3. Today's labs were reviewed in detail and discussed with Mr. Braga and a copy was given to him. WBC 8.4, hemoglobin 11.9, platelets 1 87,000 ANC is 5780. Potassium 4.3 creatinine 1.2 LFTs are normal. His last CEA on January 12, 2020 was 27. On December 15, 2019 it was 19.1-down from 41.4 on October 27, 2019. 4. We will send in a prescription refill for the Clindamycin cream. 5. We will plan to see him back in 2 weeks with CBC CMP, HgbA1c and CEA. 6. Mr. Braga was instructed to contact us in the interim should questions or problems arise. 7. Atorvastatin is listed on his allergy list from his summary from his PCP visit on 12/28/2019. Reaction was reported as dizziness. He states that he does not recall ever taking atorvastatin nor having any problems with it. He does verify that he has a penicillin allergy. Signed By: Philip Oscar-, AOCNP Xiang Castillo MD <<Signature on File>>
== END 2020-01-26 05:53 | disposition home or self-care (01) ==
LOC: ONCMED 05:55
PROVIDERS: PCP Family Medicine; Visit Provider Nurse Practitioner
DX: Z51.11 Encounter for antineoplastic chemotherapy (principal); C18.7 Malignant neoplasm of sigmoid colon; C77.2 Secondary and unspecified malignant neoplasm of intra-abdominal lymph nodes; C78.7 Secondary malignant neoplasm of liver and intrahepatic bile duct; C78.01 Secondary malignant neoplasm of right lung; C78.02 Secondary malignant neoplasm of left lung; I10 Essential (primary) hypertension; E78.5 Hyperlipidemia, unspecified; E11.9 Type 2 diabetes mellitus without complications; Z79.899 Other long term (current) drug therapy
CPT/HCPCS: 80053; 85025; 96367; 96413; 99214; J1200; J3490; J7050; J9303

== ENCOUNTER 2020-02-07 05:53 | Outpatient (CLI) | payer MEDICARE, OTHER, SELFPAY ==
[2020-02-07 09:52] LABS: Basophils # 0.1 10^3/uL (0.0-0.1); Eosinophils # 0.4 10^3/uL (0.0-0.8); Eosinophils % 5.5 %; Hematocrit 38.8 % (42.0-52.0); Hemoglobin 11.7 g/dL (11.7-16.6); Lymphocytes # 1.4 10^3/uL (0.8-4.8); Lymphocytes % 18.2 %; Mean Corpuscular HGB Conc 30.2 g/dL (30.0-36.0); Mean Corpuscular Hemoglobin 23.6 pg (28.0-34.0); Mean Corpuscular Volume 78.2 fL (80-94); Mean Platelet Volume 9.4 fL (7.4-10.4); Monocytes # 0.7 10^3/uL (0.2-0.9); Monocytes % 9.2 %; Neutrophils # 5.07 10^3/uL (1.8-7.7); Neutrophils % 65.5 %; Nucleated Red Blood Cells % 0 %; Platelet Count 182 10^3/cmm (130-400); Red Blood Count 4.96 10^6/uL (4.1-5.3); Red Cell Distribution Width 19.3 % (12.1-15.1); White Blood Count 7.8 10^3/uL (4.0-10.0)
[2020-02-07 10:19] LABS: Estmated Average Glucose 100; Hemoglobin A1C 5.1 % (4.0-6.0)
[2020-02-07 10:29] LABS: Carcinoembryonic Antigen 18.9 ng/mL (0.0-4.7)
[2020-02-07 10:40] LABS: Alanine Aminotransferase 23 U/L (0-41); Albumin Level 3.5 g/dL (3.5-5.2); Alkaline Phosphatase 86 IU/L (40-130); Aspartate Amino Transferase 18 U/L (0-40); Blood Urea Nitrogen 15 mg/dL (8-23); Calcium 8.6 mg/dL (8.5-10.5); Carbon Dioxide 26 mmol/L (22-29); Chloride 103 mmol/L (98-107); Globulin 2.9 g/dL (1.3-4.6); Glomerular Filtration Rate 59.9 mL/min (90-130); Glucose 81 mg/dL (65-115); Osmolality Calculated 286 mOsm/kg (285-295); Sodium 138 mmol/L (136-145); Total Bilirubin 0.4 mg/dL (0.15-1.2); Total Protein 6.4 g/dL (6.6-8.7)
[2020-02-07] MEDS: sodium chloride 0.9% 250 ML 999 ML IV (11:43)
[2020-02-07 17:40] LABS: Iron 39 ug/dL (59-158); Total Iron Binding Capacity 185 mcg/dl; Unsaturated Iron Binding 146 ug/dL (112-347)
--- NOTE | 2020-02-11 12:22 | ONC FU_ITS ---
Dr. Castillo Patient Follow-Up Note Patient: Gulshan Braga Unit #: [id number]: 1950 Dicatated By: Xiang Castillo M.D.Date of Visit:Feb 07, 2020 Onc Med Follow-up/Prog Note Chief Complaint: Colon cancer. 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 He had presented with influenza pneumonia and non-ST elevation [place]. During anticoagulation in preparation for coronary artery bypass graft surgery he develop significant rectal bleeding. A CT of the abdomen and pelvis on 05/11/2014 showed a mass in the distal sigmoid colon with soft tissue stranding, but no evidence of disease in the liver. There were 2 discrete nodules in the left lower lobe up to 1.1 cm with a patchy foci in the lingula and the left lower lobe. He required a cardiac bypass graft surgery on 05/19/2014. Preoperative staging PET/CT was reportedly performed, but results were not available. He then underwent left hemicolectomy on 07/03/2014. His surgical pathology revealed 6 x 5 cm low-grade adenocarcinoma, invading through muscularis propria into the subserosal adipose tissue. Two tumor deposits were present on the pericolonic adipose tissue. None of the 24 lymph nodes harvested were involved with metastatic disease. No lymphovascular or perineural invasion was identified. Luminal obstruction of more than 70% was present. Margins were negative. Thus, his disease was pathologic stage at least IIIB (pT3, N1c, MX). Mismatch repair analysis was normal, without defect identified. The patient had relocated to [place] from [place], to be closer to his daughter. He moved to the [facility] in August 2014 and established care with the [facility] in [place]. His certified peer specialist is Dr. Lomas. He was first seen by Dr. Vivas on 03/27/2015. His case was presented on the tumor board, consensus was to offer an adjuvant chemotherapy. In interim he had a CT of the chest/abdomen/pelvis on 04/10/2014 which showed increase in the two left lung nodules to 1.8 and 1.69 cm, concerning for metastatic disease. PET/CT on 05/05/2015 confirmed FDG positive two nodules in the left lung. A CT-guided biopsy on 06/11/2015 showed suspicious cells for malignancy, with only scant specimen available. Thus his disease was stage IV (M1b). Palliative FOLFOX and Avastin was recommended and was planned, but the patient decided against palliative chemotherapy. In the meantime, K-kylah mutation was performed on the original biopsy, and mutations were not detected. He was then followed on observation/symptomatic management. Restaging CT scans of the chest, abdomen, and pelvis on 07/24/2016 showed increasing size left pulmonary nodules/mass with the largest mass of the left lung base measuring 3.1 x 2.6 cm. Overall, four nodules were present with continued slow progression since April 2015 study. I had seen him for a follow-up visit in October 2016. He was still not interested in attempting any chemotherapy treatment, and he then failed to return for further follow-up. On 03/15/2018 he presented to the emergency room with back pain. He had evaluation at that time with lumbar spine CT, which showed no acute findings. He was diagnosed with acute left-sided sciatica and treated symptomatically. He returned to the emergency room on 03/28/2018. His renal CT at that time showed a partially obstructing 4 x 5 mm ureteral calculus at the left ureteropelvic junction. Other findings included prominent portal and celiac lymph nodes, a mass adjacent to the caudate lobe of the liver measuring 2.3 cm, and a low-attenuation lesion in the hepatic dome which appeared suspicious for a metastatic lesion. Also noted were enlarging pulmonary masses in the left lower lobe. I had seen him for a follow-up visit on 04/13/2018. At that point I did request further evaluation with a next generation sequencing study. It showed no actionable mutations. The tumor was noted to be MSI stable. He continued observation/expectant management for the colon cancer. However, he was still having problems related to the kidney stone. He had continued follow-up with Dr. Mckeon and on 06/14/2018 he underwent extracorporeal shockwave lithotripsy for the left distal ureteral stone. He required temporary ureteral stent placement. He had no complications with the procedure, and the stent was later removed. His other medical illnesses include hypertension, hyperlipidemia, type II diabetes, and coronary artery disease. He has a history of smoking a pack and a half of cigarettes daily for 30 years, but he quit smoking more than 10 years ago. INTERIM HISTORY: At his follow-up visit on 04/29/2019 his CEA level had increased to 21.7 ng/mL compared to 8.9 ng/mL in April 2018. However, he was still not interested in considering any treatment. He was then seen for a follow-up visit again on 10/27/2019. At that point his CEA had further increased to 41.4 ng/mL. He then had restaging CT scans of the chest, abdomen, and pelvis on 11/07/2019. Those studies showed significant progression of metastatic disease with increasing pulmonary nodules in both lungs, the largest in the left upper lobe measuring 3.5 x 2.9 cm and in the left lower lobe measuring 4.6 x 4.9 cm. There was progression of metastatic lesions in the right hepatic lobe, the largest measuring 4.3 x 3.4 cm in the dome of the liver and 4.8 cm in the right hepatic lobe laterally. Also noted were multiple enlarged partially calcified lymph nodes in the love hepatis and celiac axis, bulky enlarged retrocrural and gastroesophageal lymph nodes, and bulky periaortic and retroperitoneal lymph nodes, all new from previous studies. With those findings he did opt to begin a trial of therapy with panitumumab as a single agent. He began cycle 1 on 11/17/2019. His further treatment was then put on hold due to a severe skin eruption, which developed despite having been given dexamethasone prophylaxis. During follow-up his rash slowly improved, and during that time there was a significant decline in his CEA level. As such, he opted to continue treatment, and he restarted panitumumab on 01/12/2020 with the dosage reduced to 2 mg/kg by IV infusion. He tolerated it with acceptable toxicity and he continued with cycle 3 on 01/26/2020. He is seen for a follow-up visit. He is feeling better all around. He has improved energy, and he has been more active. ECOG score is 1. His appetite is coming back. He does not have fever or night sweats. He says his breathing is also getting better. He does not have cough, and he does not complain of chest pain. He has no GI or complaints. He has some pain in the right shoulder, but he has no other joint or bone pain. He has some numbness in his arms/hands, but it is positional. He has persistent skin eruption, but it has been tolerable. Medications: Aspirin 1 Tablet (of 81 mg) Tablet, chewable Oral daily, Cephalexin 1 Capsule (of 500 mg) Oral q 6 hours PRN, Iron Supplement 1 Tablet (of 325 (65 fe) mg) Oral b.i.d., Metoprolol Tartrate 1 Tablet (of 25 mg) Oral b.i.d., Ondansetron 1 Tablet (of 4 mg) Tablet Dispersable Oral q 4 hours PRN, Rosuvastatin Calcium 0.5 Tablet Oral at bedtime on Every Other Day, Vitamin D3 1 (2000 Units) Tablet Oral daily Allergies: Penicillin V Potassium Review of Systems: Constitutional - He says he feels better all around. His energy has improved and he has been more active. His appetite is coming back. He has no fever or night sweats. ECOG score is 1, ENMT - No sinus congestion/drainage. No mouth sores. No sore throat or difficulty swallowing, Hematologic/Lymphatic - No abnormal bruising or bleeding, Respiratory - His breathing is also getting better. No cough. No pleuritic pain or hemoptysis, Cardiovascular - No angina pain. No palpitations, Gastrointestinal - No nausea or vomiting. His acid reflux is adequately managed with Mylanta at bedtime. No diarrhea or constipation. No blood in the stool or black stools, Genitourinary (M) - No dysuria or hematuria. No urinary frequency. No urgency or incontinence, Musculoskeletal - He has pain in his right shoulder, but no other joint or bone pain, Integumentary - His has a generalized skin rash, but it is tolerable, Neurologic - No headache or dizziness. He has some numbness in his arms/hands, but it is positional. No other focal neurologic symptoms, Psychiatric - No anxiety or depression. No insomnia. Vital Signs: Performed on Feb 07, 2020 10:59 Height - 67.00 in Weight - 215.6 lbs (HIGH) BSA - 2.09 sq.m BMI - 33.77 (HIGH) Temperature - 98.7 F Pulse - 67 /min Respiration - 20 /min BP - 127/63 mm(hg) O2 Sat - 99 % Pain - 0 Physical Examination: Constitutional - He looks better generally, Eyes - Sclerae nonicteric. Conjunctivae clear, ENMT - No lesions noted in the oral cavity, Hematologic/Lymphatic - No cervical, clavicular, or axillary adenopathy, Respiratory - Lungs sound clear, Cardiovascular - Heart rhythm is irregular. There is a II/ systolic murmur. There is no gallop or rub noted, Abdomen - Soft. Liver and spleen are not enlarged. There is no abdominal mass or ascites noted and there is no inguinal adenopathy, Extremities - No edema, Integumentary - There is persistent, generalized maculopapular skin eruption, but it has improved significantly. It is not pustular, Neurologic - No focal neurologic deficits noted. Lab/Imaging: Test performed on Feb 07, 2020 09:23 Iron 39 mcg/dL Sodium 138 mmol/L Iron Binding Capacity (TIBC) 185 mcg/dl Potassium 4.0 mmol/L % Iron Saturation 21.0 % Chloride 103 mmol/L Est Avg Glucose (eAG) 100 mg/dL CO2 26 mmol/L UIBC 146 mcg/dL Anion Gap 13.0 BUN 15 mg/dL Creatinine 1.2 mg/dL Cr Clearance (Est) 76.0000 mL/min eGFR 59.9 mL/min Glucose 81 mg/dL Osmolality - Calculated 286 mOsm/kg Calcium 8.6 mg/dL Protein, Total 6.4 g/dL Albumin 3.5 g/dL Globulin 2.9 g/dL Bilirubin, Total 0.4 mg/dL ALT (SGPT) 23 U/L AST (SGOT) 18 U/L Alkaline Phosphatase 86 IU/L Hemoglobin A1C % 5.1 % WBC 7.8 10 3/uL RBC 4.96 10 6/uL HGB 11.7 g/dL HCT 38.8 % MCV 78.2 fL MCH 23.6 pg MCHC 30.2 g/dL RDW 19.3 % Platelet Count 182 10 3/cmm MPV 9.4 fL Neutrophils 5.07 10 3/uL Lymphocytes 1.4 10 3/uL Monocytes 0.7 10 3/uL Eosinophils 0.4 10 3/uL Basophils 0.1 10 3/uL Neutrophil % 65.5 % Lymphocyte % 18.2 % Monocyte % 9.2 % Eosinophil % 5.5 % Basophils % 1.0 % NRBC % 0 % CEA 18.9 ng/mL Impression: 1. Low-grade adenocarcinoma of the distal sigmoid colon, stage IV (T3, N1c, M1b). 2. He underwent left hemicolectomy on 07/03/2014. 3. He had non-ST elevation myocardial infarction at initial presentation, and he did require coronary artery bypass surgery prior to the colon resection. 4. During subsequent follow-up he has had enlarging, FDG avid pulmonary nodules, consistent with metastatic disease. He has opted to have just symptomatic/supportive care. His other medical illnesses include: 5. Hypertension. 6. Hyperlipidemia. 7. Type II diabetes. As of his follow-up visit in October [address] scans had continued to show gradual disease progression. His clinical status had remained stable, and he was still not interested in attempting any chemotherapy. He then failed to return for further follow-up. On 03/15/2018 he presented to the emergency room with pain on the left side of his back. He was diagnosed with acute left sciatica, but further evaluation with a renal CT on 03/28/2018 confirm the presence of a 4 x 5 mm ureteral calculus at the left ureteropelvic junction. The CT scan also showed evidence for further progression of the metastatic colon cancer with increase in size of pulmonary nodules, though the change was not all that dramatic given the interval from the previous study. During his further follow-up he has had ongoing problems with the nephrolithiasis. As of his follow-up visit on 10/27/2019 his clinical status appeared stable, but there had been a significant increase in his CEA level, to 41.4 ng/mL. Restaging CT scans of the chest, abdomen, and pelvis on 11/07/2019 showed significant progression of pulmonary and hepatic metastatic disease and development of bulky intra-abdominal and retroperitoneal lymphadenopathy. With that finding, he did agree to trial of therapy with panitumumab as a single agent. He began his initial infusion of panitumumab on 11/17/2019. His further treatment was put on hold due to a severe skin eruption, which developed despite prophylactic dexamethasone. During follow-up there was gradual improvement in the skin eruption, and during that time he also had a significant decline in his CEA level. As such, he opted to continue treatment, and he proceeded with cycle 2 of panitumumab on 01/12/2020 with the dosage reduced to 2 mg/kg by IV infusion. Thus far he has been able to tolerate it with acceptable toxicity, and there continues to be further decline in the CEA level. Plan: He will continue with cycle 4 of panitumumab with the dosage the same at 2 mg/kg by IV infusion. He will return for treatment in 2 weeks and for a follow-up visit in 4 weeks. Signed By: Xiang Castillo M.D. <<Signature on File>>
== END 2020-02-07 05:54 | disposition home or self-care (01) ==
LOC: ONCMED 05:56
PROVIDERS: Internal Medicine Medical Oncology; PCP Family Medicine; Visit Provider Internal Medicine Hematology & Oncology
DX: Z51.11 Encounter for antineoplastic chemotherapy (principal); C18.7 Malignant neoplasm of sigmoid colon; C77.2 Secondary and unspecified malignant neoplasm of intra-abdominal lymph nodes; C78.01 Secondary malignant neoplasm of right lung; C78.02 Secondary malignant neoplasm of left lung; C78.7 Secondary malignant neoplasm of liver and intrahepatic bile duct; I10 Essential (primary) hypertension; E78.5 Hyperlipidemia, unspecified; E11.9 Type 2 diabetes mellitus without complications; Z79.899 Other long term (current) drug therapy
CPT/HCPCS: 80053; 82378; 83036; 83540; 83550; 85025; 96367; 96413; 99214; J1200; J3490; J7050; J9303

== ENCOUNTER 2020-02-21 06:34 | Outpatient (CLI) | payer MEDICARE, OTHER, SELFPAY ==
[2020-02-21] MEDS: sodium chloride 0.9% 250 ML 75 ML IV (14:34)
== END 2020-02-21 06:35 | disposition home or self-care (01) ==
LOC: ONCMED 06:42
PROVIDERS: PCP Family Medicine; Visit Provider Internal Medicine Medical Oncology
DX: Z51.11 Encounter for antineoplastic chemotherapy (principal); C18.7 Malignant neoplasm of sigmoid colon; C77.2 Secondary and unspecified malignant neoplasm of intra-abdominal lymph nodes; C78.7 Secondary malignant neoplasm of liver and intrahepatic bile duct; C78.01 Secondary malignant neoplasm of right lung; C78.02 Secondary malignant neoplasm of left lung
CPT/HCPCS: 96367; 96413; J1200; J3490; J7050; J9303

== ENCOUNTER 2020-03-06 05:46 | Outpatient (CLI) | payer MEDICARE, OTHER, SELFPAY ==
[2020-03-06 09:25] LABS: Basophils # 0.1 10^3/uL (0.0-0.1); Eosinophils # 0.4 10^3/uL (0.0-0.8); Eosinophils % 3.9 %; Hematocrit 43.2 % (42.0-52.0); Lymphocytes # 1.7 10^3/uL (0.8-4.8); Lymphocytes % 16.6 %; Mean Corpuscular HGB Conc 30.1 g/dL (30.0-36.0); Mean Corpuscular Hemoglobin 24.6 pg (28.0-34.0); Mean Corpuscular Volume 81.8 fL (80-94); Mean Platelet Volume 9.6 fL (7.4-10.4); Monocytes # 1.1 10^3/uL (0.2-0.9); Monocytes % 10.1 %; Neutrophils # 7.04 10^3/uL (1.8-7.7); Neutrophils % 67.3 %; Nucleated Red Blood Cells % 0 %; Platelet Count 217 10^3/cmm (130-400); Red Blood Count 5.28 10^6/uL (4.1-5.3); White Blood Count 10.5 10^3/uL (4.0-10.0)
[2020-03-06 10:13] LABS: Alanine Aminotransferase 18 U/L (0-41); Albumin Level 3.5 g/dL (3.5-5.2); Alkaline Phosphatase 80 IU/L (40-130); Aspartate Amino Transferase 15 U/L (0-40); Blood Urea Nitrogen 15 mg/dL (8-23); Calcium 8.8 mg/dL (8.5-10.5); Carbon Dioxide 25 mmol/L (22-29); Chloride 105 mmol/L (98-107); Globulin 3.3 g/dL (1.3-4.6); Glomerular Filtration Rate 66.2 mL/min (90-130); Glucose 88 mg/dL (65-115); Osmolality Calculated 292 mOsm/kg (285-295); Sodium 141 mmol/L (136-145); Total Bilirubin 0.3 mg/dL (0.15-1.2); Total Protein 6.8 g/dL (6.6-8.7)
[2020-03-06] MEDS: diphenhydrAMINE 50 mg/mL SDV 1mL 25 MG IVP (10:40)
[2020-03-06] MEDS: famotidine 20 mg/2 mL INJ IVP (10:45)
[2020-03-06] MEDS: sodium chloride 0.9% 250 ML 75 ML IV (10:45)
--- NOTE | 2020-03-09 14:14 | ONC FU_ITS ---
Dr. Castillo Patient Follow-Up Note Patient: Gulshan Braga Unit #: [id number]: 1950 Dicatated By: Xiang Castillo M.D.Date of Visit:Mar 06, 2020 Onc Med Follow-up/Prog Note Chief Complaint: Colon cancer. 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 He had presented with influenza pneumonia and non-ST elevation GA. During anticoagulation in preparation for coronary artery bypass graft surgery he develop significant rectal bleeding. A CT of the abdomen and pelvis on 05/11/2014 showed a mass in the distal sigmoid colon with soft tissue stranding, but no evidence of disease in the liver. There were 2 discrete nodules in the left lower lobe up to 1.1 cm with a patchy foci in the lingula and the left lower lobe. He required a cardiac bypass graft surgery on 05/19/2014. Preoperative staging PET/CT was reportedly performed, but results were not available. He then underwent left hemicolectomy on 07/03/2014. His surgical pathology revealed 6 x 5 cm low-grade adenocarcinoma, invading through muscularis propria into the subserosal adipose tissue. Two tumor deposits were present on the pericolonic adipose tissue. None of the 24 lymph nodes harvested were involved with metastatic disease. No lymphovascular or perineural invasion was identified. Luminal obstruction of more than 70% was present. Margins were negative. Thus, his disease was pathologic stage at least IIIB (pT3, N1c, MX). Mismatch repair analysis was normal, without defect identified. The patient had relocated to [place] from [place], to be closer to his daughter. He moved to the [facility] in August 2014 and established care with the [facility] in [place]. His director global medical affairs is Dr. Lomas. He was first seen by Dr. Vivas on 03/27/2015. His case was presented on the tumor board, consensus was to offer an adjuvant chemotherapy. In interim he had a CT of the chest/abdomen/pelvis on 04/10/2014 which showed increase in the two left lung nodules to 1.8 and 1.69 cm, concerning for metastatic disease. PET/CT on 05/05/2015 confirmed FDG positive two nodules in the left lung. A CT-guided biopsy on 06/11/2015 showed suspicious cells for malignancy, with only scant specimen available. Thus his disease was stage IV (M1b). Palliative FOLFOX and Avastin was recommended and was planned, but the patient decided against palliative chemotherapy. In the meantime, K-kylah mutation was performed on the original biopsy, and mutations were not detected. He was then followed on observation/symptomatic management. Restaging CT scans of the chest, abdomen, and pelvis on 07/24/2016 showed increasing size left pulmonary nodules/mass with the largest mass of the left lung base measuring 3.1 x 2.6 cm. Overall, four nodules were present with continued slow progression since April 2015 study. I had seen him for a follow-up visit in October 2016. He was still not interested in attempting any chemotherapy treatment, and he then failed to return for further follow-up. On 03/15/2018 he presented to the emergency room with back pain. He had evaluation at that time with lumbar spine CT, which showed no acute findings. He was diagnosed with acute left-sided sciatica and treated symptomatically. He returned to the emergency room on 03/28/2018. His renal CT at that time showed a partially obstructing 4 x 5 mm ureteral calculus at the left ureteropelvic junction. Other findings included prominent portal and celiac lymph nodes, a mass adjacent to the caudate lobe of the liver measuring 2.3 cm, and a low-attenuation lesion in the hepatic dome which appeared suspicious for a metastatic lesion. Also noted were enlarging pulmonary masses in the left lower lobe. I had seen him for a follow-up visit on 04/13/2018. At that point I did request further evaluation with a next generation sequencing study. It showed no actionable mutations. The tumor was noted to be MSI stable. He continued observation/expectant management for the colon cancer. However, he was still having problems related to the kidney stone. He had continued follow-up with Dr. Mckeon and on 06/14/2018 he underwent extracorporeal shockwave lithotripsy for the left distal ureteral stone. He required temporary ureteral stent placement. He had no complications with the procedure, and the stent was later removed. His other medical illnesses include hypertension, hyperlipidemia, type II diabetes, and coronary artery disease. He has a history of smoking a pack and a half of cigarettes daily for 30 years, but he quit smoking more than 10 years ago. INTERIM HISTORY: At his follow-up visit on 04/29/2019 his CEA level had increased to 21.7 ng/mL compared to 8.9 ng/mL in April 2018. However, he was still not interested in considering any treatment. He was then seen for a follow-up visit again on 10/27/2019. At that point his CEA had further increased to 41.4 ng/mL. He then had restaging CT scans of the chest, abdomen, and pelvis on 11/07/2019. Those studies showed significant progression of metastatic disease with increasing pulmonary nodules in both lungs, the largest in the left upper lobe measuring 3.5 x 2.9 cm and in the left lower lobe measuring 4.6 x 4.9 cm. There was progression of metastatic lesions in the right hepatic lobe, the largest measuring 4.3 x 3.4 cm in the dome of the liver and 4.8 cm in the right hepatic lobe laterally. Also noted were multiple enlarged partially calcified lymph nodes in the love hepatis and celiac axis, bulky enlarged retrocrural and gastroesophageal lymph nodes, and bulky periaortic and retroperitoneal lymph nodes, all new from previous studies. With those findings he did opt to begin a trial of therapy with panitumumab as a single agent. He began cycle 1 on 11/17/2019. His further treatment was then put on hold due to a severe skin eruption, which developed despite having been given dexamethasone prophylaxis. During follow-up his rash slowly improved, and during that time there was a significant decline in his CEA level. As such, he opted to continue treatment, and he restarted panitumumab on 01/12/2020 with the dosage reduced to 2 mg/kg by IV infusion. He tolerated it with acceptable toxicity and he continued treatment at 2-week intervals. As of 02/07/2020 his CEA level had decreased to 18.9 ng/mL. He is seen for a follow-up visit. He has been feeling pretty good generally, though his skin eruption has worsened significantly over the past couple of weeks. He has found that using a topical Benadryl cream to be somewhat more effective than the antibiotic ointment. He still has some fatigue, but he is able to do light work. ECOG score is 1. His appetite is coming back. He has no fever or night sweats. He has had no mouth sores. He has no shortness of breath, cough, or chest pain. He has no GI/ complaints other than some urinary frequency. He says his joints pop a lot, but he is not having any significant joint or bone pain. He has some numbness on the tips of his fingers. Medications: Aspirin 1 Tablet (of 81 mg) Tablet, chewable Oral daily, Cephalexin 1 Capsule (of 500 mg) Oral q 6 hours PRN, Clindamycin Phosphate 1 (1 %) Lotion Topical PRN, Iron Supplement 1 Tablet (of 325 (65 fe) mg) Oral b.i.d., Metoprolol Tartrate 1 Tablet (of 25 mg) Oral b.i.d., Ondansetron 1 Tablet (of 4 mg) Tablet Dispersable Oral q 4 hours PRN, Rosuvastatin Calcium 0.5 Tablet Oral at bedtime on Every Other Day, Vitamin D3 1 (2000 Units) Tablet Oral daily Allergies: Penicillin V Potassium Review of Systems: Constitutional - He has been feeling pretty good generally, though he still has fatigue. Appetite is coming back. He has no fever or night sweats. ECOG score is 1, ENMT - No sinus congestion/drainage. No mouth sores. No sore throat or difficulty swallowing, Hematologic/Lymphatic - No abnormal bruising or bleeding, Respiratory - No shortness of breath. No cough. No pleuritic pain or hemoptysis, Cardiovascular - No angina pain. No palpitations, Gastrointestinal - No nausea or vomiting. No heartburn or acid reflux. No diarrhea or constipation. No blood in the stool or black stools, Genitourinary (M) - No dysuria or hematuria. He has urinary frequency. No urgency or incontinence, Musculoskeletal - His joints pop a lot, but he has no significant joint or bone pain, Integumentary - His skin eruption has worsened, Neurologic - No headache or dizziness. He has numbness on the tips of his fingers. No other focal neurologic symptoms, Psychiatric - No anxiety or depression. No insomnia. Vital Signs: Performed on Mar 06, 2020 11:50 Height - 67.00 in Temperature - 98.9 F (HIGH) Pulse - 68 /min Respiration - 18 /min BP - 138/75 mm(hg) O2 Sat - 97 % Pain - 0 Fatigue - 0 Performed on Mar 06, 2020 10:15 Height - 67.00 in Weight - 225.4 lbs (HIGH) BSA - 2.13 sq.m BMI - 35.30 (HIGH) Temperature - 99.2 F (HIGH) Pulse - 80 /min Respiration - 22 /min BP - 121/81 mm(hg) O2 Sat - 97 % Pain - 0 Physical Examination: Constitutional - He looks pretty good generally, Eyes - Sclerae nonicteric. Conjunctivae clear, ENMT - No lesions noted in the oral cavity, Hematologic/Lymphatic - No cervical, clavicular, or axillary adenopathy, Respiratory - Lungs sound clear, Cardiovascular - Heart rhythm appears regular. There is a II/ systolic murmur. There is no gallop or rub noted, Abdomen - Soft. Liver and spleen are not enlarged. There is no abdominal mass or ascites noted and there is no inguinal adenopathy, Extremities - No edema, Integumentary - There is persistent, generalized maculopapular skin eruption. It has worsened significantly in the facial area and on the trunk. It is still not pustular, Neurologic - No focal neurologic deficits noted. Lab/Imaging: Test performed on Mar 06, 2020 09:00 Sodium 141 mmol/L Potassium 4.0 mmol/L Chloride 105 mmol/L CO2 25 mmol/L Anion Gap 15.0 BUN 15 mg/dL Creatinine 1.1 mg/dL Cr Clearance (Est) 82.9100 mL/min eGFR 66.2 mL/min Glucose 88 mg/dL Osmolality - Calculated 292 mOsm/kg Calcium 8.8 mg/dL Protein, Total 6.8 g/dL Albumin 3.5 g/dL Globulin 3.3 g/dL Bilirubin, Total 0.3 mg/dL ALT (SGPT) 18 U/L AST (SGOT) 15 U/L Alkaline Phosphatase 80 IU/L WBC 10.5 10 3/uL RBC 5.28 10 6/uL HGB 13.0 g/dL HCT 43.2 % MCV 81.8 fL MCH 24.6 pg MCHC 30.1 g/dL RDW 20.0 % Platelet Count 217 10 3/cmm MPV 9.6 fL Neutrophils 7.04 10 3/uL Lymphocytes 1.7 10 3/uL Monocytes 1.1 10 3/uL Eosinophils 0.4 10 3/uL Basophils 0.1 10 3/uL Neutrophil % 67.3 % Lymphocyte % 16.6 % Monocyte % 10.1 % Eosinophil % 3.9 % Basophils % 1.0 % NRBC % 0 % Impression: 1. Low-grade adenocarcinoma of the distal sigmoid colon, stage IV (T3, N1c, M1b). 2. He underwent left hemicolectomy on 07/03/2014. 3. He had non-ST elevation myocardial infarction at initial presentation, and he did require coronary artery bypass surgery prior to the colon resection. 4. During subsequent follow-up he has had enlarging, FDG avid pulmonary nodules, consistent with metastatic disease. He has opted to have just symptomatic/supportive care. His other medical illnesses include: 5. Hypertension. 6. Hyperlipidemia. 7. Type II diabetes. As of his follow-up visit in October [address] scans had continued to show gradual disease progression. His clinical status had remained stable, and he was still not interested in attempting any chemotherapy. He then failed to return for further follow-up. On 03/15/2018 he presented to the emergency room with pain on the left side of his back. He was diagnosed with acute left sciatica, but further evaluation with a renal CT on 03/28/2018 confirm the presence of a 4 x 5 mm ureteral calculus at the left ureteropelvic junction. The CT scan also showed evidence for further progression of the metastatic colon cancer with increase in size of pulmonary nodules, though the change was not all that dramatic given the interval from the previous study. During his further follow-up he has had ongoing problems with the nephrolithiasis. As of his follow-up visit on 10/27/2019 his clinical status appeared stable, but there had been a significant increase in his CEA level, to 41.4 ng/mL. Restaging CT scans of the chest, abdomen, and pelvis on 11/07/2019 showed significant progression of pulmonary and hepatic metastatic disease and development of bulky intra-abdominal and retroperitoneal lymphadenopathy. With that finding, he did agree to trial of therapy with panitumumab as a single agent. He began his initial infusion of panitumumab on 11/17/2019. His further treatment was put on hold due to a severe skin eruption, which developed despite prophylactic dexamethasone. During follow-up there was gradual improvement in the skin eruption, and during that time he also had a significant decline in his CEA level. As such, he opted to continue treatment, and he proceeded with cycle 2 of panitumumab on 01/12/2020 with the dosage reduced to 2 mg/kg by IV infusion. He was able to tolerate treatment much better at the reduced dosage, he then continued panitumumab infusions every 2 weeks. He does appear to be showing response by CEA level. As of 02/07/2020 it had decreased to 18.9 ng/mL. Since then his skin eruption has worsened again, but he has otherwise been tolerating the treatment well. Plan: He will continue with cycle 8 of panitumumab with the dosage the same at 2 mg/kg by IV infusion. With the skin eruption having worsened significantly, I and going to give him a little treatment break and just have him return in 4 weeks. Signed By: Xiang Castillo M.D. <<Signature on File>>
== END 2020-03-06 05:47 | disposition home or self-care (01) ==
LOC: ONCMED 05:50
PROVIDERS: PCP Family Medicine; Visit Provider Internal Medicine Medical Oncology
DX: C18.7 Malignant neoplasm of sigmoid colon (principal); C77.2 Secondary and unspecified malignant neoplasm of intra-abdominal lymph nodes; C78.7 Secondary malignant neoplasm of liver and intrahepatic bile duct; C78.01 Secondary malignant neoplasm of right lung; C78.02 Secondary malignant neoplasm of left lung; I10 Essential (primary) hypertension; E78.5 Hyperlipidemia, unspecified; E11.9 Type 2 diabetes mellitus without complications; R21 Rash and other nonspecific skin eruption; Z79.84 Long term (current) use of oral hypoglycemic drugs; Z87.891 Personal history of nicotine dependence
CPT/HCPCS: 80053; 85025; 96375; 96413; 99214; J1200; J3490; J7050; J9303

== ENCOUNTER 2020-04-03 08:51 | Outpatient (CLI) | payer MEDICARE, OTHER, SELFPAY ==
[2020-04-03 09:18] LABS: Basophils # 0.1 10^3/uL (0.0-0.1); Basophils % 1.1 %; Eosinophils # 0.5 10^3/uL (0.0-0.8); Eosinophils % 4.8 %; Hematocrit 43.1 % (42.0-52.0); Hemoglobin 13.2 g/dL (11.7-16.6); Lymphocytes # 1.2 10^3/uL (0.8-4.8); Mean Corpuscular HGB Conc 30.6 g/dL (30.0-36.0); Mean Corpuscular Hemoglobin 24.7 pg (28.0-34.0); Mean Corpuscular Volume 80.6 fL (80-94); Mean Platelet Volume 9.7 fL (7.4-10.4); Monocytes # 1.1 10^3/uL (0.2-0.9); Monocytes % 11.2 %; Neutrophils # 7.16 10^3/uL (1.8-7.7); Neutrophils % 70.2 %; Nucleated Red Blood Cells % 0 %; Platelet Count 300 10^3/cmm (130-400); Red Blood Count 5.35 10^6/uL (4.1-5.3); Red Cell Distribution Width 16.1 % (12.1-15.1); White Blood Count 10.2 10^3/uL (4.0-10.0)
[2020-04-03 09:48] LABS: Alanine Aminotransferase 9 U/L (0-41); Albumin Level 3.8 g/dL (3.5-5.2); Alkaline Phosphatase 83 IU/L (40-130); Anion Gap 15.1 (5-19); Aspartate Amino Transferase 15 U/L (0-40); Blood Urea Nitrogen 16 mg/dL (8-23); Calcium 9.2 mg/dL (8.5-10.5); Carbon Dioxide 25 mmol/L (22-29); Chloride 101 mmol/L (98-107); Globulin 3.8 g/dL (1.3-4.6); Glomerular Filtration Rate 54.6 mL/min (90-130); Glucose 83 mg/dL (65-115); Osmolality Calculated 284 mOsm/kg (285-295); Potassium 4.1 mmol/L (3.5-5.1); Sodium 137 mmol/L (136-145); Total Bilirubin 0.4 mg/dL (0.15-1.2); Total Protein 7.6 g/dL (6.6-8.7)
[2020-04-03] MEDS: sodium chloride 0.9% 250 ML 300 ML IV (11:25)
[2020-04-03] MEDS: famotidine 20 mg/2 mL INJ IVP (11:25)
[2020-04-03] MEDS: diphenhydrAMINE 50 mg/mL SDV 1mL 25 MG IVP (11:30)
[2020-04-03 15:50] LABS: Estmated Average Glucose 103; Hemoglobin A1C 5.2 % (4.0-6.0)
--- NOTE | 2020-04-08 20:26 | ONC FU_ITS ---
[facility] Patient Note Patient: Gulshan Braga Unit #: [id number]: 1950 Dictated By: Philip OscarDate of Visit: Apr 03, 2020 Onc MED Follow-Up/Prog Note Chief Complaint: Colon cancer. 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 He had presented with influenza pneumonia and non-ST elevation [place]. During anticoagulation in preparation for coronary artery bypass graft surgery he develop significant rectal bleeding. A CT of the abdomen and pelvis on 05/11/2014 showed a mass in the distal sigmoid colon with soft tissue stranding, but no evidence of disease in the liver. There were 2 discrete nodules in the left lower lobe up to 1.1 cm with a patchy foci in the lingula and the left lower lobe. He required a cardiac bypass graft surgery on 05/19/2014. Preoperative staging PET/CT was reportedly performed, but results were not available. He then underwent left hemicolectomy on 07/03/2014. His surgical pathology revealed 6 x 5 cm low-grade adenocarcinoma, invading through muscularis propria into the subserosal adipose tissue. Two tumor deposits were present on the pericolonic adipose tissue. None of the 24 lymph nodes harvested were involved with metastatic disease. No lymphovascular or perineural invasion was identified. Luminal obstruction of more than 70% was present. Margins were negative. Thus, his disease was pathologic stage at least IIIB (pT3, N1c, MX). Mismatch repair analysis was normal, without defect identified. The patient had relocated to [place] from [place], to be closer to his daughter. He moved to the [facility] in August 2014 and established care with the [facility] in [place]. His cutter banana room is Dr. Lomas. He was first seen by Dr. Vivas on 03/27/2015. His case was presented on the tumor board, consensus was to offer an adjuvant chemotherapy. In interim he had a CT of the chest/abdomen/pelvis on 04/10/2014 which showed increase in the two left lung nodules to 1.8 and 1.69 cm, concerning for metastatic disease. PET/CT on 05/05/2015 confirmed FDG positive two nodules in the left lung. A CT-guided biopsy on 06/11/2015 showed suspicious cells for malignancy, with only scant specimen available. Thus his disease was stage IV (M1b). Palliative FOLFOX and Avastin was recommended and was planned, but the patient decided against palliative chemotherapy. In the meantime, K-kylah mutation was performed on the original biopsy, and mutations were not detected. He was then followed on observation/symptomatic management. Restaging CT scans of the chest, abdomen, and pelvis on 07/24/2016 showed increasing size left pulmonary nodules/mass with the largest mass of the left lung base measuring 3.1 x 2.6 cm. Overall, four nodules were present with continued slow progression since April [address] Castillo had seen him for a follow-up visit in October 2016. He was still not interested in attempting any chemotherapy treatment, and he then failed to return for further follow-up. On 03/15/2018 he presented to the emergency room with back pain. He had evaluation at that time with lumbar spine CT, which showed no acute findings. He was diagnosed with acute left-sided sciatica and treated symptomatically. He returned to the emergency room on 03/28/2018. His renal CT at that time showed a partially obstructing 4 x 5 mm ureteral calculus at the left ureteropelvic junction. Other findings included prominent portal and celiac lymph nodes, a mass adjacent to the caudate lobe of the liver measuring 2.3 cm, and a low-attenuation lesion in the hepatic dome which appeared suspicious for a metastatic lesion. Also noted were enlarging pulmonary masses in the left lower lobe. Dr Castillo had seen him for a follow-up visit on 04/13/2018. At that point I did request further evaluation with a next generation sequencing study. It showed no actionable mutations. The tumor was noted to be MSI stable. He continued observation/expectant management for the colon cancer. However, he was still having problems related to the kidney stone. He had continued follow-up with Dr. Mckeon and on 06/14/2018 he underwent extracorporeal shockwave lithotripsy for the left distal ureteral stone. He required temporary ureteral stent placement. He had no complications with the procedure, and the stent was later removed. His other medical illnesses include hypertension, hyperlipidemia, type II diabetes, and coronary artery disease. He has a history of smoking a pack and a half of cigarettes daily for 30 years, but he quit smoking more than 10 years ago. INTERIM HISTORY: At his follow-up visit on 04/29/2019 his CEA level had increased to 21.7 ng/mL compared to 8.9 ng/mL in April 2018. However, he was still not interested in considering any treatment. He was then seen for a follow-up visit again on 10/27/2019. At that point his CEA had further increased to 41.4 ng/mL. He then had restaging CT scans of the chest, abdomen, and pelvis on 11/07/2019. Those studies showed significant progression of metastatic disease with increasing pulmonary nodules in both lungs, the largest in the left upper lobe measuring 3.5 x 2.9 cm and in the left lower lobe measuring 4.6 x 4.9 cm. There was progression of metastatic lesions in the right hepatic lobe, the largest measuring 4.3 x 3.4 cm in the dome of the liver and 4.8 cm in the right hepatic lobe laterally. Also noted were multiple enlarged partially calcified lymph nodes in the love hepatis and celiac axis, bulky enlarged retrocrural and gastroesophageal lymph nodes, and bulky periaortic and retroperitoneal lymph nodes, all new from previous studies. With those findings he did opt to begin a trial of therapy with panitumumab as a single agent. He began cycle 1 on 11/17/2019. His further treatment was then put on hold due to a severe skin eruption, which developed despite having been given dexamethasone prophylaxis. During follow-up his rash slowly improved, and during that time there was a significant decline in his CEA level. As such, he opted to continue treatment, and he restarted panitumumab on 01/12/2020 with the dosage reduced to 2 mg/kg by IV infusion. He tolerated it with acceptable toxicity and he continued treatment at 2-week intervals. As of 02/07/2020 his CEA level had decreased to 18.9 ng/mL. His last treatment was on 03/06/2020. He has persistent mild Vectibix rash but tolerates it well and has been motivated to continue treatment despite the rash. Mr. Braga is here today for follow-up. He is due for cycle 10 vectibix. He states overall he feels about the same. He continues to have mild rash on his scalp, face, upper chest, back and arms. He states is not bothersome. He states occasionally it itches but he will put lotion on it that seems to take care of it. He reports that he had recent UTI treatment from his primary care provider and that has resolved. However he is requesting to have antibiotics on hand in the event that it flares after this treatment. He states his bowels are normal for him. He continues to use as needed stool softeners and laxative. He states this works well for him. He is somewhat concerned as he states has been having more bloating lately and has no appetite. He states just nothing sounds good or taste good. He denies any mouth sores, sore throat or difficulty swallowing. He denies any nausea or vomiting. He denies any diarrhea. He denies any new pain. He states his bowels are always sluggish and no worse from taking the oral iron supplement. He denies any bone pain. He states he has been active around the house and doing a few chores but for the most part is tired and rest frequently but does recover with rest. His ECOG is 2. Past Medical History: Coronary artery disease Diabetes type I Hyperlipidemia Hypertension Sleep Apnea in 2016 Past Surgical History: Appendectomy Cataract excision Cholecystectomy Colonoscopy Coronary artery bypass PORT PLACEMENT DR. DAILY Allergies: Penicillin V Potassium Medications: Aspirin 1 Tablet (of 81 mg) Tablet, chewable Oral daily Clindamycin Phosphate 1 (1 %) Lotion Topical PRN Iron Supplement 1 Tablet (of 325 (65 fe) mg) Oral b.i.d. Metoprolol Tartrate 1 Tablet (of 25 mg) Oral b.i.d. Ondansetron 1 Tablet (of 4 mg) Tablet Dispersable Oral q 4 hours PRN Rosuvastatin Calcium 0.5 Tablet Oral at bedtime on Every Other Day Vitamin D3 1 (2000 Units) Tablet Oral daily Family History: Mr. Braga's mother is . Mr. Braga's father is . unknown family history, brother with history of heart disease. Social History: Mr. Braga is and he is retired. Mr. Braga quit smoking 11 years ago but had smoked 1.5 packs/day for 30 years. He has indicated exposure to the following products: cigarettes. Mr. Braga reports the following support systems: lives alone, lives in own house, supportive family/friends willing to assist with needs, and adequate transportation available for expected visits. His diet consists of regular meals. He indicates his activity level as: daily activities. Review Of Symptoms: Constitutional Denies fevers, chills, night sweats, excessive fatigue or weight loss. Allergic/Immunologic No reactions. Eyes Denies significant visual changes. No diplopia. No amaurosis. ENMT Denies changes in hearing, sore throat, mouth sores, difficulty or changes in swallowing ability, and/or sinus drainage. Endocrine No diabetes, thyroid disease or hormone replacement. Denies hot flashes or night sweats. Hematologic/Lymphatic Denies easy bruising or bleeding. The patient denies any tender or palpable lymph nodes. Respiratory Denies dyspnea on exertion, chest pain, cough or hemoptysis. Denies orthopnea. Cardiovascular Denies anginal chest pain, palpitations or orthopnea. Gastrointestinal Denies nausea, vomiting, diarrhea, GI bleeding, or constipation. Denies change in bowel habits and/or stool color, no heartburn or early satiety. He states he has bloating that is new but his bowels are sluggish at times . He continues with stool softener and laxative as needed to make his bowels move. He states this is chronic and no worse than his normal. Genitourinary (M) Denies hematuria, dysuria, increased frequency, urgency, hesitancy or incontinence. He states that he had recent UTI and was given antibiotics per his primary care. He states that those symptoms are improved but he would like to have antibiotics on hand in case it starts again after this treatment. Musculoskeletal Denies joint pain, swelling or redness. No decreased range of motion. Integumentary rash on scalp, face, neck, chest, back. Neurologic Denies headache, blurred vision, and no areas of focal weakness or numbness. Normal gait. No sensory problems. Psychiatric Denies insomnia, depression, judith or mood swings. Vital Signs: Performed on Apr 03, 2020 12:45 Height - 67.00 in Temperature - 98.6 F Pulse - 50 /min (LOW) Respiration - 18 /min BP - 153/74 mm(hg) (HIGH) O2 Sat - 96 % Pain - 0 Fatigue - 0 Performed on Apr 03, 2020 10:43 Height - 67.00 in Weight - 220.8 lbs (LOW) BSA - 2.11 sq.m BMI - 34.58 (HIGH) Temperature - 98.0 F (LOW) Pulse - 76 /min Respiration - 17 /min BP - 157/74 mm(hg) (HIGH) O2 Sat - 98 % Pain - 0,1 - No physically strenuous activity, but ambulatory and able to carry out light or sedentary work (e.g. office work, light house work). (ECOG) Physical Examination: Constitutional Alert, oriented, no acute distress. Skin pink, warm and dry. Head Normocephalic; atraumatic. Eyes Conjunctivae and sclerae are clear and without icterus. Pupils are reactive and equal. Neck Supple without masses or thyromegaly. No jugular venous distension. Hematologic/Lymphatic No petechiae or purpura. No tender or palpable lymph nodes in the cervical or supraclavicular areas. Respiratory Lungs are clear to auscultation without rhonchi or wheezing. Cardiovascular Regular rate and rhythm of heart without murmurs,clicks, gallops or rubs. Chest Left subclavian Port-A-Cath site has healed well. It is unremarkable. Abdomen Non-tender, non-distended, no masses, ascites. Bowel sounds noted in all quads. Back/Spine Non-tender to palpation. Extremities No visible deformities, no cyanosis, clubbing or edema. Musculoskeletal No tenderness or swelling, normal range of motion without obvious weakness. Integumentary Mild-raised, red lesions scattered on scalp, face, anterior chest and upper arms-no pustules. Neurologic No sensory or motor deficits, normal cerebellar function, assisted gait-walks with cane-not new. Psychiatric Alert and oriented times three. Coherent speech. Verbalizes understanding of our discussions today. Laboratory:Test performed on Apr 03, 2020 09:04 Sodium 137 mmol/L Potassium 4.1 mmol/L Chloride 101 mmol/L Est Avg Glucose (eAG) 103 mg/dL CO2 25 mmol/L Anion Gap 15.1 BUN 16 mg/dL Creatinine 1.3 mg/dL Cr Clearance (Est) 70.1500 mL/min eGFR 54.6 mL/min Glucose 83 mg/dL Osmolality - Calculated 284 mOsm/kg Calcium 9.2 mg/dL Protein, Total 7.6 g/dL Albumin 3.8 g/dL Globulin 3.8 g/dL Bilirubin, Total 0.4 mg/dL ALT (SGPT) 9 U/L AST (SGOT) 15 U/L Alkaline Phosphatase 83 IU/L Hemoglobin A1C % 5.2 % WBC 10.2 10 3/uL RBC 5.35 10 6/uL HGB 13.2 g/dL HCT 43.1 % MCV 80.6 fL MCH 24.7 pg MCHC 30.6 g/dL RDW 16.1 % Platelet Count 300 10 3/cmm MPV 9.7 fL Neutrophils 7.16 10 3/uL Lymphocytes 1.2 10 3/uL Monocytes 1.1 10 3/uL Eosinophils 0.5 10 3/uL Basophils 0.1 10 3/uL Neutrophil % 70.2 % Lymphocyte % 12.0 % Monocyte % 11.2 % Eosinophil % 4.8 % Basophils % 1.1 % NRBC % 0 % CEA 15.0 ng/mL Test performed on Feb 07, 2020 09:23 Iron 39 mcg/dL Iron Binding Capacity (TIBC) 185 mcg/dl % Iron Saturation 21.0 % UIBC 146 mcg/dL Test performed on Dec 29, 2019 09:10 Ua Color Yellow Ua Appearance Clear Ua Glucose Norm Ua Bilirubin Neg Ua Ketones 1+ Ua Specific [place] 1.020 Ua Blood Neg Ua pH 5.0 Ua Protein Neg Ua Nitrites Negative Ua Leukocyte Esterase Negative Test performed on Oct 27, 2019 09:08 TSH 1.73 uIU/mL Impression: 1. Low-grade adenocarcinoma of the distal sigmoid colon, stage IV (T3, N1c, M1b). 2. He underwent left hemicolectomy on 07/03/2014. 3. He had non-ST elevation myocardial infarction at initial presentation, and he did require coronary artery bypass surgery prior to the colon resection. 4. During subsequent follow-up he has had enlarging, FDG avid pulmonary nodules, consistent with metastatic disease. His other medical illnesses include: 5. Hypertension. 6. Hyperlipidemia. 7. Type II diabetes. As of his follow-up visit in October [address] scans had continued to show gradual disease progression. His clinical status had remained stable, and he was still not interested in attempting any chemotherapy. He then failed to return for further follow-up. On 03/15/2018 he presented to the emergency room with pain on the left side of his back. He was diagnosed with acute left sciatica, but further evaluation with a renal CT on 03/28/2018 confirm the presence of a 4 x 5 mm ureteral calculus at the left ureteropelvic junction. The CT scan also showed evidence for further progression of the metastatic colon cancer with increase in size of pulmonary nodules, though the change was not all that dramatic given the interval from the previous study. During his further follow-up he has had ongoing problems with the nephrolithiasis. As of his follow-up visit on 10/27/2019 his clinical status appeared stable, but there had been a significant increase in his CEA level, to 41.4 ng/mL. Restaging CT scans of the chest, abdomen, and pelvis on 11/07/2019 showed significant progression of pulmonary and hepatic metastatic disease and development of bulky intra-abdominal and retroperitoneal lymphadenopathy. With that finding, he did agree to trial of therapy with panitumumab as a single agent. He began his initial infusion of panitumumab on 11/17/2019. His further treatment was put on hold due to a severe skin eruption, which developed despite prophylactic dexamethasone. During follow-up there was gradual improvement in the skin eruption, and during that time he also had a significant decline in his CEA level. As such, he opted to continue treatment, and he proceeded with cycle 2 of panitumumab on 01/12/2020 with the dosage reduced to 2 mg/kg by IV infusion. He was able to tolerate treatment much better at the reduced dosage, he then continued panitumumab infusions every 2 weeks. He does appear to be showing response by CEA level. As of 02/07/2020 it had decreased to 18.9 ng/mL. Since then his skin eruption has worsened again, but he has otherwise been tolerating the treatment well. His last treatment was on 03/06/2020. Plan: 1. Proceed with cycle 10 panitumumab with the dosage the same at 2 mg/kg by IV infusion. 2. He did have an extra week off due to the holidays and that he had had persistent rash. The rash is slightly better but not resolved. 3. Labs from today were reviewed in detail and discussed with Mr. Brgaa and a copy was given to him. Do BC 10.2, hemoglobin 13.2, platelets 300,000 ANC is 7160. Potassium 4.1 creatinine 1.3 LFTs are normal. CEA is 15 and hemoglobin A1c is 5.2. 4. We will plan to refill his urinary tract infection antibiotic. We will also refill his stool softener and laxative. We will plan to see him back in 2 to [address] Castillo I have asked for restaging CT of the chest abdomen pelvis both with contrast for bloating and generalized abdominal discomfort in a gentleman with metastatic colon cancer. His last imaging was 01/09/[address] of the abdomen and pelvis. 5. We will plan to see him back after the CT has been obtained with CBC CMP and CEA. He is instructed to contact us in the interim should questions or problems arise. Signed By: Philip Oscar-, AOCNP Xiang Castillo MD <<Signature on File>>
== END 2020-04-03 08:52 | disposition home or self-care (01) ==
LOC: ONCMED 08:54
PROVIDERS: PCP Family Medicine; Visit Provider Nurse Practitioner
DX: Z51.12 Encounter for antineoplastic immunotherapy (principal); C18.7 Malignant neoplasm of sigmoid colon; C78.7 Secondary malignant neoplasm of liver and intrahepatic bile duct; C78.00 Secondary malignant neoplasm of unspecified lung; L27.0 Generalized skin eruption due to drugs and medicaments taken internally; T45.1X5D Adverse effect of antineoplastic and immunosuppressive drugs, subsequent encounter; I10 Essential (primary) hypertension; E78.5 Hyperlipidemia, unspecified; E11.9 Type 2 diabetes mellitus without complications; Z87.891 Personal history of nicotine dependence; Z87.440 Personal history of urinary (tract) infections
CPT/HCPCS: 80053; 82378; 83036; 85025; 96375; 96413; 99214; J1200; J3490; J7050; J9303

== ENCOUNTER 2020-04-13 07:48 | Outpatient (CLI) | payer MEDICARE, OTHER, SELFPAY ==
--- NOTE | 2020-04-13 07:59 | CT_ITS ---
WS: [id number] CT CHEST, ABDOMEN, AND PELVIS TECHNIQUE: Contrast-enhanced CT of the chest, abdomen, and pelvis with coronal and sagittal reformatt ed images. CLINICAL INFORMATION: METASTATIC COLON CANCER COMPARISON: CT 01/09/2020 and 12/21/2019, November 07, 2019 DLP: 2580.[address] scans at [facility] use at least one of these dose optimization techniques: automat ed exposure control; mA and/or kV adjustment per patient size (includes targeted exams where dose is matched to clinical indication); or iterative reconstruction. CT CHEST: Again seen are multiple metastatic pulmonary nodules throughout both lungs. Size and number relativel y unchanged since December 21, 2019. 2 largest nodules in the left lung, one in the left upper lobe measuring 3.4 x 3.3 cm and left lower lobe measuring 4.5 x 4.0 CM. Normal caliber thoracic aorta. Proximal main pulmonary arteries are normal. No mediastinal or hilar l ymphadenopathy. No axillary lymphadenopathy. Prior sternotomy. CT ABDOMEN AND PELVIS: Prior postoperative changes sigmoid anastomosis. Cholecystectomy clips. Heterogeneous partially calci fied metastatic lesions in both hepatic lobes appears stable. No evidence of progressed hepatic metas tatic disease. Normal portal vein and splenic vein. Numerous enlarged and some calcified bulky upper abdominal lymphadenopathy. This includes the love h epatis, celiac axis, retrocrural, and gastroesophageal lymph nodes. Bulky calcified periaortic and re troperitoneal lymphadenopathy. One or 2 upper abdominal lymph nodes appear smaller today. Overall lym phadenopathy is nonspecific change. Previously described tiny left pericolic gutter metastasis has nearly resolved. Adrenal glands are normal. Normal renal parenchymal enhancement. No hydronephrosis. Stable left renal cysts. Normal caliber abdominal aorta. Aortic calcification. Hypertrophic changes thoracic spine. Stable lyt ic lesion right iliac wing. CT/CT chest abd pel w con* IMPRESSION: 1. No evidence of disease progression in the chest abdomen or pelvis. 2. Numerous metastatic lesions throughout both lungs are stable since the prio r examination described above. 3. No mediastinal or hilar lymphadenopathy. 4. Stable partially calcified metastatic hepatic lesions. 5. Bulky abdominal lymphadenopathy described above is relatively stable compar ed to January 09, 2020. One or 2 lymph nodes in the upper abdomen appear smalle r compared to previous. 6. Previous described possible peritoneal metastasis in left pericolic gutter has nearly resolved. 7. Stable right iliac lytic lesion.
[2020-04-13] MEDS: iohexol 300 mg/mL 50 mL Btl PO (09:07)
[2020-04-13] MEDS: iodixanol 320 mg/mL 100mL Btl IV (09:35)
== END 2020-04-13 07:49 | disposition home or self-care (01) ==
LOC: RADWPI 07:53
PROVIDERS: PCP Family Medicine; Visit Provider Nurse Practitioner
DX: C18.7 Malignant neoplasm of sigmoid colon (principal); R91.8 Other nonspecific abnormal finding of lung field; R10.84 Generalized abdominal pain; R59.0 Localized enlarged lymph nodes; K76.9 Liver disease, unspecified
CPT/HCPCS: 71260; 74177; Q9967

== ENCOUNTER 2020-04-16 07:13 | Outpatient (CLI) | payer MEDICARE, OTHER, SELFPAY ==
[2020-04-16 08:00] LABS: Basophils # 0.1 10^3/uL (0.0-0.1); Basophils % 0.9 %; Eosinophils # 0.4 10^3/uL (0.0-0.8); Eosinophils % 2.9 %; Lymphocytes # 1.6 10^3/uL (0.8-4.8); Lymphocytes % 11.7 %; Mean Corpuscular Hemoglobin 24.9 pg (28.0-34.0); Mean Corpuscular Volume 80.3 fL (80-94); Mean Platelet Volume 9.5 fL (7.4-10.4); Monocytes # 1.2 10^3/uL (0.2-0.9); Monocytes % 8.8 %; Neutrophils # 10.41 10^3/uL (1.8-7.7); Nucleated Red Blood Cells % 0 %; Platelet Count 212 10^3/cmm (130-400); Red Blood Count 5.23 10^6/uL (4.1-5.3); Red Cell Distribution Width 16.7 % (12.1-15.1); White Blood Count 13.9 10^3/uL (4.0-10.0)
[2020-04-16 08:46] LABS: Alanine Aminotransferase 17 U/L (0-41); Albumin Level 3.4 g/dL (3.5-5.2); Alkaline Phosphatase 78 IU/L (40-130); Aspartate Amino Transferase 15 U/L (0-40); Blood Urea Nitrogen 15 mg/dL (8-23); Calcium 8.7 mg/dL (8.5-10.5); Carbon Dioxide 26 mmol/L (22-29); Chloride 102 mmol/L (98-107); Globulin 3.2 g/dL (1.3-4.6); Glucose 72 mg/dL (65-115); Osmolality Calculated 283 mOsm/kg (285-295); Sodium 137 mmol/L (136-145); Total Bilirubin 0.3 mg/dL (0.15-1.2); Total Protein 6.6 g/dL (6.6-8.7)
[2020-04-16] MEDS: sodium chloride 0.9% 500 ML IV (08:50)
[2020-04-16] MEDS: diphenhydrAMINE 50 mg/mL SDV 1mL 25 MG IVP (09:00)
[2020-04-16] MEDS: sodium chloride 0.9% 250 ML 75 ML IV (09:00)
[2020-04-16] MEDS: famotidine 20 mg/2 mL INJ IVP (09:10)
[2020-04-16 10:33] LABS: Carcinoembryonic Antigen 14.7 ng/mL (0.0-4.7)
--- NOTE | 2020-04-20 14:29 | ONC FU_ITS ---
Dr. Castillo Patient Follow-Up Note Patient: Gulshan Braga Unit #: [id number]: 1950 Dicatated By: Xiang Castillo M.D.Date of Visit:Apr 16, 2020 Onc Med Follow-up/Prog Note Chief Complaint: Colon cancer. 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 He had presented with influenza pneumonia and non-ST elevation AR. During anticoagulation in preparation for coronary artery bypass graft surgery he develop significant rectal bleeding. A CT of the abdomen and pelvis on 05/11/2014 showed a mass in the distal sigmoid colon with soft tissue stranding, but no evidence of disease in the liver. There were 2 discrete nodules in the left lower lobe up to 1.1 cm with a patchy foci in the lingula and the left lower lobe. He required a cardiac bypass graft surgery on 05/19/2014. Preoperative staging PET/CT was reportedly performed, but results were not available. He then underwent left hemicolectomy on 07/03/2014. His surgical pathology revealed 6 x 5 cm low-grade adenocarcinoma, invading through muscularis propria into the subserosal adipose tissue. Two tumor deposits were present on the pericolonic adipose tissue. None of the 24 lymph nodes harvested were involved with metastatic disease. No lymphovascular or perineural invasion was identified. Luminal obstruction of more than 70% was present. Margins were negative. Thus, his disease was pathologic stage at least IIIB (pT3, N1c, MX). Mismatch repair analysis was normal, without defect identified. The patient had relocated to [place] from [place], to be closer to his daughter. He moved to the [facility] in August 2014 and established care with the [facility] in [place]. His utility assembler is Dr. Lomas. He was first seen by Dr. Vivas on 03/27/2015. His case was presented on the tumor board, consensus was to offer an adjuvant chemotherapy. In interim he had a CT of the chest/abdomen/pelvis on 04/10/2014 which showed increase in the two left lung nodules to 1.8 and 1.69 cm, concerning for metastatic disease. PET/CT on 05/05/2015 confirmed FDG positive two nodules in the left lung. A CT-guided biopsy on 06/11/2015 showed suspicious cells for malignancy, with only scant specimen available. Thus his disease was stage IV (M1b). Palliative FOLFOX and Avastin was recommended and was planned, but the patient decided against palliative chemotherapy. In the meantime, K-kylah mutation was performed on the original biopsy, and mutations were not detected. He was then followed on observation/symptomatic management. Restaging CT scans of the chest, abdomen, and pelvis on 07/24/2016 showed increasing size left pulmonary nodules/mass with the largest mass of the left lung base measuring 3.1 x 2.6 cm. Overall, four nodules were present with continued slow progression since April 2015 study. I had seen him for a follow-up visit in October 2016. He was still not interested in attempting any chemotherapy treatment, and he then failed to return for further follow-up. On 03/15/2018 he presented to the emergency room with back pain. He had evaluation at that time with lumbar spine CT, which showed no acute findings. He was diagnosed with acute left-sided sciatica and treated symptomatically. He returned to the emergency room on 03/28/2018. His renal CT at that time showed a partially obstructing 4 x 5 mm ureteral calculus at the left ureteropelvic junction. Other findings included prominent portal and celiac lymph nodes, a mass adjacent to the caudate lobe of the liver measuring 2.3 cm, and a low-attenuation lesion in the hepatic dome which appeared suspicious for a metastatic lesion. Also noted were enlarging pulmonary masses in the left lower lobe. I had seen him for a follow-up visit on 04/13/2018. At that point I did request further evaluation with a next generation sequencing study. It showed no actionable mutations. The tumor was noted to be MSI stable. He continued observation/expectant management for the colon cancer. However, he was still having problems related to the kidney stone. He had continued follow-up with Dr. Mckeon and on 06/14/2018 he underwent extracorporeal shockwave lithotripsy for the left distal ureteral stone. He required temporary ureteral stent placement. He had no complications with the procedure, and the stent was later removed. His other medical illnesses include hypertension, hyperlipidemia, type II diabetes, and coronary artery disease. He has a history of smoking a pack and a half of cigarettes daily for 30 years, but he quit smoking more than 10 years ago. INTERIM HISTORY: At his follow-up visit on 04/29/2019 his CEA level had increased to 21.7 ng/mL compared to 8.9 ng/mL in April 2018. However, he was still not interested in considering any treatment. He was then seen for a follow-up visit again on 10/27/2019. At that point his CEA had further increased to 41.4 ng/mL. He then had restaging CT scans of the chest, abdomen, and pelvis on 11/07/2019. Those studies showed significant progression of metastatic disease with increasing pulmonary nodules in both lungs, the largest in the left upper lobe measuring 3.5 x 2.9 cm and in the left lower lobe measuring 4.6 x 4.9 cm. There was progression of metastatic lesions in the right hepatic lobe, the largest measuring 4.3 x 3.4 cm in the dome of the liver and 4.8 cm in the right hepatic lobe laterally. Also noted were multiple enlarged partially calcified lymph nodes in the olve hepatis and celiac axis, bulky enlarged retrocrural and gastroesophageal lymph nodes, and bulky periaortic and retroperitoneal lymph nodes, all new from previous studies. With those findings he did opt to begin a trial of therapy with panitumumab as a single agent. He began cycle 1 on 11/17/2019. His further treatment was then put on hold due to a severe skin eruption, which developed despite having been given dexamethasone prophylaxis. During follow-up his rash slowly improved, and during that time there was a significant decline in his CEA level. As such, he opted to continue treatment, and he restarted panitumumab on 01/12/2020 with the dosage reduced to 2 mg/kg by IV infusion. He tolerated it with acceptable toxicity and he continued treatment at 2-week intervals. As of 02/07/2020 his CEA level had decreased to 18.9 ng/mL, and on 04/03/2020 and had further decreased to 15.0 ng/mL. Restaging CT scans on 04/13/2020 showed multiple metastatic pulmonary nodules throughout both lungs, with the size and number relatively unchanged compared to the December 2019 study. Heterogeneous and partially calcified metastatic lesions of both hepatic lobes also appeared stable, as did his bulky upper abdominal lymphadenopathy. Previously described tiny left pericolic gutter metastatic lesions appear to have resolved. A lytic lesion in the right iliac wing was noted to be stable. He is seen for a follow-up visit. He has been feeling pretty good generally. He continues to have significant skin eruption in the facial area, but it is tolerable. He does tire easily and he has been using a walker when he has to go longer distances. His ECOG score is 1. He has good appetite. He has no fever or night sweats. He has had no mouth sores. He has some shortness of breath with activity, but he says his breathing is decent. He does not complain of cough and he has not been having chest pain. He has had constipation, that has improved with medication. He has no other GI or complaints. He has no significant joint or bone pain. He does not complain of headache or dizziness. He has some numbness in his fingertips. Medications: Aspirin 1 Tablet (of 81 mg) Tablet, chewable Oral daily, Clindamycin Phosphate 1 (1 %) Lotion Topical PRN, Iron Supplement 1 Tablet (of 325 (65 fe) mg) Oral b.i.d., Metoprolol Tartrate 1 Tablet (of 25 mg) Oral b.i.d., Ondansetron 1 Tablet (of 4 mg) Tablet Dispersable Oral q 4 hours PRN, Rosuvastatin Calcium 0.5 Tablet Oral at bedtime on Every Other Day, Vitamin D3 1 (2000 Units) Tablet Oral daily Allergies: Penicillin V Potassium Vital Signs: Performed on Apr 16, 2020 10:35 Height - 67.00 in Temperature - 98.6 F Pulse - 70 /min Respiration - 18 /min BP - 152/81 mm(hg) (HIGH) O2 Sat - 99 % Pain - 0 Fatigue - 0 Performed on Apr 16, 2020 08:42 Height - 67.00 in Weight - 225 lbs (HIGH) BSA - 2.13 sq.m BMI - 35.24 (HIGH) Temperature - 98.6 F Pulse - 71 /min Respiration - 16 /min BP - 129/75 mm(hg) O2 Sat - 96 % Pain - 0 Physical Examination: Constitutional - He looks pretty good generally, Eyes - Sclerae nonicteric. Conjunctivae clear, ENMT - No lesions noted in the oral cavity, Hematologic/Lymphatic - No cervical, clavicular, or axillary adenopathy, Respiratory - Lungs show coarse breath sounds bilaterally, Cardiovascular - Heart rhythm appears regular. There is a II/ systolic murmur. There is no gallop or rub noted, Abdomen - Soft. Liver and spleen are not enlarged. There is no abdominal mass or ascites noted and there is no inguinal adenopathy, Extremities - No edema, Integumentary - His face is dry with some associated desquamation and with maculopapular lesions. There are scattered papules on the trunk, Neurologic - No focal neurologic deficits noted. Lab/Imaging: Test performed on Apr 16, 2020 07:50 Sodium 137 mmol/L Potassium 4.0 mmol/L Chloride 102 mmol/L CO2 26 mmol/L Anion Gap 13.0 BUN 15 mg/dL Creatinine 1.1 mg/dL Cr Clearance (Est) 81.7200 mL/min Glucose 72 mg/dL Osmolality - Calculated 283 mOsm/kg Calcium 8.7 mg/dL Protein, Total 6.6 g/dL Albumin 3.4 g/dL Globulin 3.2 g/dL Bilirubin, Total 0.3 mg/dL ALT (SGPT) 17 U/L AST (SGOT) 15 U/L Alkaline Phosphatase 78 IU/L WBC 13.9 10 3/uL RBC 5.23 10 6/uL HGB 13.0 g/dL HCT 42.0 % MCV 80.3 fL MCH 24.9 pg MCHC 31.0 g/dL RDW 16.7 % Platelet Count 212 10 3/cmm MPV 9.5 fL Neutrophils 10.41 10 3/uL Lymphocytes 1.6 10 3/uL Monocytes 1.2 10 3/uL Eosinophils 0.4 10 3/uL Basophils 0.1 10 3/uL Neutrophil % 75.0 % Lymphocyte % 11.7 % Monocyte % 8.8 % Eosinophil % 2.9 % Basophils % 0.9 % NRBC % 0 % CEA 14.7 ng/mL Historic Problem List: 1. Low-grade adenocarcinoma of the distal sigmoid colon, stage IV (T3, N1c, M1b). He underwent left hemicolectomy on 07/03/2014. During subsequent follow-up he had enlarging, FDG avid pulmonary nodules, consistent with metastatic disease. He initially opted to have just symptomatic/supportive care. 2. He had non-ST elevation myocardial infarction at initial presentation, and he did require coronary artery bypass surgery prior to the colon resection. 3. Hypertension. 4. Hyperlipidemia. 5. Type II diabetes. 6. Nephrolithiasis. He underwent extracorporeal shockwave lithotripsy for a left distal ureteral stone in June 2018. Problems Addressed with this Encounter and Plan: Adenocarcinoma of the sigmoid colon, stage IV, with multiple pulmonary metastases and with metastatic involvement in the liver and upper abdominal lymph nodes. He began vectibix monotherapy in November 2019. During treatment there has been a significant decline in his CEA level but with his restaging CT scans showing stable findings. Overall, in the absence of any evidence of disease progression, he does appear to be getting significant benefit with his treatment. He has had significant skin toxicity with the vectibix, but it has been tolerable at a reduced dosage. He has had no other significant side effects. As such, he will continue vectibix at the current dosage, 2 mg/kg by IV infusion every 2 weeks. He will have a follow-up visit in 4 weeks. Signed By: Xiang Castillo M.D. <<Signature on File>>
== END 2020-04-16 07:14 | disposition home or self-care (01) ==
LOC: ONCMED 07:17
PROVIDERS: PCP Family Medicine; Visit Provider Internal Medicine Medical Oncology
DX: Z51.11 Encounter for antineoplastic chemotherapy (principal); C18.7 Malignant neoplasm of sigmoid colon; C78.7 Secondary malignant neoplasm of liver and intrahepatic bile duct; C77.2 Secondary and unspecified malignant neoplasm of intra-abdominal lymph nodes; C78.02 Secondary malignant neoplasm of left lung; C78.01 Secondary malignant neoplasm of right lung; R21 Rash and other nonspecific skin eruption; T45.1X5D Adverse effect of antineoplastic and immunosuppressive drugs, subsequent encounter; I10 Essential (primary) hypertension; E78.5 Hyperlipidemia, unspecified; E11.9 Type 2 diabetes mellitus without complications; N20.0 Calculus of kidney; Z79.899 Other long term (current) drug therapy
CPT/HCPCS: 80053; 82378; 85025; 96361; 96375; 96413; 99214; J1200; J3490; J7040; J7050; J9303

== ENCOUNTER 2020-05-01 06:06 | Outpatient (CLI) | payer MEDICARE, OTHER, SELFPAY ==
[2020-05-01] MEDS: diphenhydrAMINE 50 mg/mL SDV 1mL 25 MG IVP (10:45)
[2020-05-01] MEDS: acetaminophen 325 mg Tablet 650 MG PO (10:50)
[2020-05-01] MEDS: famotidine 20 mg/2 mL INJ IVP (10:50)
[2020-05-01] MEDS: sodium chloride 0.9% 250 ML 75 ML IV (11:10)
== END 2020-05-01 06:07 | disposition home or self-care (01) ==
LOC: ONCMED 06:09
PROVIDERS: PCP Family Medicine; Visit Provider Internal Medicine Medical Oncology
DX: C18.7 Malignant neoplasm of sigmoid colon (principal); C77.2 Secondary and unspecified malignant neoplasm of intra-abdominal lymph nodes; C78.00 Secondary malignant neoplasm of unspecified lung; C78.7 Secondary malignant neoplasm of liver and intrahepatic bile duct
CPT/HCPCS: 96375; 96413; J1200; J3490; J7050; J9303

== ENCOUNTER 2020-05-15 05:50 | Outpatient (CLI) | payer MEDICARE, OTHER, SELFPAY ==
[2020-05-15 08:58] LABS: Basophils # 0.1 10^3/uL (0.0-0.1); Basophils % 0.9 %; Eosinophils # 0.7 10^3/uL (0.0-0.8); Eosinophils % 5.2 %; Hematocrit 43.9 % (42.0-52.0); Hemoglobin 13.6 g/dL (11.7-16.6); Lymphocytes # 1.7 10^3/uL (0.8-4.8); Lymphocytes % 12.5 %; Mean Corpuscular Hemoglobin 24.8 pg (28.0-34.0); Mean Corpuscular Volume 80.1 fL (80-94); Mean Platelet Volume 9.9 fL (7.4-10.4); Monocytes # 1.2 10^3/uL (0.2-0.9); Monocytes % 9.1 %; Neutrophils # 9.52 10^3/uL (1.8-7.7); Neutrophils % 70.1 %; Nucleated Red Blood Cells % 0 %; Platelet Count 236 10^3/cmm (130-400); Red Blood Count 5.48 10^6/uL (4.1-5.3); Red Cell Distribution Width 16.5 % (12.1-15.1); White Blood Count 13.6 10^3/uL (4.0-10.0)
[2020-05-15 10:12] LABS: Alanine Aminotransferase 14 U/L (0-41); Albumin Level 3.6 g/dL (3.5-5.2); Alkaline Phosphatase 80 IU/L (40-130); Anion Gap 15.2 (5-19); Aspartate Amino Transferase 15 U/L (0-40); Blood Urea Nitrogen 18 mg/dL (8-23); Calcium 9.1 mg/dL (8.5-10.5); Carbon Dioxide 24 mmol/L (22-29); Chloride 103 mmol/L (98-107); Globulin 3.6 g/dL (1.3-4.6); Glucose 85 mg/dL (65-115); Osmolality Calculated 287 mOsm/kg (285-295); Potassium 4.2 mmol/L (3.5-5.1); Sodium 138 mmol/L (136-145); Total Bilirubin 0.4 mg/dL (0.15-1.2); Total Protein 7.2 g/dL (6.6-8.7)
[2020-05-15 10:37] LABS: Estmated Average Glucose 126
[2020-05-15] MEDS: famotidine 20 mg/2 mL INJ IVP (11:20)
[2020-05-15] MEDS: diphenhydrAMINE 50 mg/mL SDV 1mL 25 MG IVP (11:20)
[2020-05-15] MEDS: sodium chloride 0.9% 250 ML 75 ML IV (11:20)
== END 2020-05-15 05:51 | disposition home or self-care (01) ==
LOC: ONCMED 05:52
PROVIDERS: Internal Medicine Medical Oncology; PCP Family Medicine; Visit Provider Nurse Practitioner
DX: Z51.11 Encounter for antineoplastic chemotherapy (principal); C18.7 Malignant neoplasm of sigmoid colon; C78.7 Secondary malignant neoplasm of liver and intrahepatic bile duct; C78.01 Secondary malignant neoplasm of right lung; C78.02 Secondary malignant neoplasm of left lung; C77.2 Secondary and unspecified malignant neoplasm of intra-abdominal lymph nodes; E11.9 Type 2 diabetes mellitus without complications; E78.5 Hyperlipidemia, unspecified; I10 Essential (primary) hypertension; I25.10 Atherosclerotic heart disease of native coronary artery without angina pectoris; G47.33 Obstructive sleep apnea (adult) (pediatric)
CPT/HCPCS: 80053; 82378; 83036; 85025; 96375; 96413; J1200; J3490; J7050; J9303

== ENCOUNTER 2020-05-29 05:48 | Outpatient (CLI) | payer MEDICARE, OTHER, SELFPAY ==
[2020-05-29 11:54] LABS: Basophils # 0.1 10^3/uL (0.0-0.1); Eosinophils # 0.7 10^3/uL (0.0-0.8); Hematocrit 44.4 % (42.0-52.0); Hemoglobin 13.5 g/dL (11.7-16.6); Lymphocytes # 1.7 10^3/uL (0.8-4.8); Mean Corpuscular HGB Conc 30.4 g/dL (30.0-36.0); Mean Corpuscular Hemoglobin 24.2 pg (28.0-34.0); Mean Corpuscular Volume 79.6 fL (80-94); Mean Platelet Volume 9.8 fL (7.4-10.4); Monocytes # 1.3 10^3/uL (0.2-0.9); Monocytes % 9.7 %; Neutrophils # 9.26 10^3/uL (1.8-7.7); Neutrophils % 70.6 %; Nucleated Red Blood Cells % 0 %; Platelet Count 228 10^3/cmm (130-400); Red Blood Count 5.58 10^6/uL (4.1-5.3); Red Cell Distribution Width 16.7 % (12.1-15.1); White Blood Count 13.1 10^3/uL (4.0-10.0)
[2020-05-29 12:09] LABS: Alanine Aminotransferase 14 U/L (0-41); Albumin Level 3.7 g/dL (3.5-5.2); Alkaline Phosphatase 85 IU/L (40-130); Anion Gap 13.3 (5-19); Aspartate Amino Transferase 16 U/L (0-40); Blood Urea Nitrogen 14 mg/dL (8-23); Calcium 9.3 mg/dL (8.5-10.5); Carbon Dioxide 25 mmol/L (22-29); Chloride 106 mmol/L (98-107); Globulin 3.7 g/dL (1.3-4.6); Glucose 81 mg/dL (65-115); Osmolality Calculated 290 mOsm/kg (285-295); Potassium 4.3 mmol/L (3.5-5.1); Sodium 140 mmol/L (136-145); Total Bilirubin 0.6 mg/dL (0.15-1.2); Total Protein 7.4 g/dL (6.6-8.7)
--- NOTE | 2020-06-04 13:45 | ONC FU_ITS ---
[facility] Patient Note Patient: Gulshan Braga Unit #: [id number]: 1950 Dictated By: Philip OscarDate of Visit: May 29, 2020 Onc MED Follow-Up/Prog Note Chief Complaint: Colon cancer. 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 He had presented with influenza pneumonia and non-ST elevation [place]. During anticoagulation in preparation for coronary artery bypass graft surgery he develop significant rectal bleeding. A CT of the abdomen and pelvis on 05/11/2014 showed a mass in the distal sigmoid colon with soft tissue stranding, but no evidence of disease in the liver. There were 2 discrete nodules in the left lower lobe up to 1.1 cm with a patchy foci in the lingula and the left lower lobe. He required a cardiac bypass graft surgery on 05/19/2014. Preoperative staging PET/CT was reportedly performed, but results were not available. He then underwent left hemicolectomy on 07/03/2014. His surgical pathology revealed 6 x 5 cm low-grade adenocarcinoma, invading through muscularis propria into the subserosal adipose tissue. Two tumor deposits were present on the pericolonic adipose tissue. None of the 24 lymph nodes harvested were involved with metastatic disease. No lymphovascular or perineural invasion was identified. Luminal obstruction of more than 70% was present. Margins were negative. Thus, his disease was pathologic stage at least IIIB (pT3, N1c, MX). Mismatch repair analysis was normal, without defect identified. The patient had relocated to [place] from [place], to be closer to his daughter. He moved to [facility] in August 2014 and established care with the [facility] in [place]. His publication designer is Dr. Lomas. He was first seen by Dr. Vivas on 03/27/2015. His case was presented on the tumor board, consensus was to offer an adjuvant chemotherapy. In interim he had a CT of the chest/abdomen/pelvis on 04/10/2014 which showed increase in the two left lung nodules to 1.8 and 1.69 cm, concerning for metastatic disease. PET/CT on 05/05/2015 confirmed FDG positive two nodules in the left lung. A CT-guided biopsy on 06/11/2015 showed suspicious cells for malignancy, with only scant specimen available. Thus his disease was stage IV (M1b). Palliative FOLFOX and Avastin was recommended and was planned, but the patient decided against palliative chemotherapy. In the meantime, K-kylah mutation was performed on the original biopsy, and mutations were not detected. He was then followed on observation/symptomatic management. Restaging CT scans of the chest, abdomen, and pelvis on 07/24/2016 showed increasing size left pulmonary nodules/mass with the largest mass of the left lung base measuring 3.1 x 2.6 cm. Overall, four nodules were present with continued slow progression since April 2015 study. I had seen him for a follow-up visit in October 2016. He was still not interested in attempting any chemotherapy treatment, and he then failed to return for further follow-up. On 03/15/2018 he presented to the emergency room with back pain. He had evaluation at that time with lumbar spine CT, which showed no acute findings. He was diagnosed with acute left-sided sciatica and treated symptomatically. He returned to the emergency room on 03/28/2018. His renal CT at that time showed a partially obstructing 4 x 5 mm ureteral calculus at the left ureteropelvic junction. Other findings included prominent portal and celiac lymph nodes, a mass adjacent to the caudate lobe of the liver measuring 2.3 cm, and a low-attenuation lesion in the hepatic dome which appeared suspicious for a metastatic lesion. Also noted were enlarging pulmonary masses in the left lower lobe. Dr Castillo had seen him for a follow-up visit on 04/13/2018 and requested further evaluation with a next generation sequencing study. It showed no actionable mutations. The tumor was noted to be MSI stable. He continued observation/expectant management for the colon cancer. However, he was still having problems related to the kidney stone. He had continued follow-up with Dr. Mckeon and on 06/14/2018 he underwent extracorporeal shockwave lithotripsy for the left distal ureteral stone. He required temporary ureteral stent placement. He had no complications with the procedure, and the stent was later removed. His other medical illnesses include hypertension, hyperlipidemia, type II diabetes, and coronary artery disease. He has a history of smoking a pack and a half of cigarettes daily for 30 years, but he quit smoking more than 10 years ago. INTERIM HISTORY: At his follow-up visit on 04/29/2019 his CEA level had increased to 21.7 ng/mL compared to 8.9 ng/mL in April 2018. However, he was still not interested in considering any treatment. He was then seen for a follow-up visit again on 10/27/2019. At that point his CEA had further increased to 41.4 ng/mL. He then had restaging CT scans of the chest, abdomen, and pelvis on 11/07/2019. Those studies showed significant progression of metastatic disease with increasing pulmonary nodules in both lungs, the largest in the left upper lobe measuring 3.5 x 2.9 cm and in the left lower lobe measuring 4.6 x 4.9 cm. There was progression of metastatic lesions in the right hepatic lobe, the largest measuring 4.3 x 3.4 cm in the dome of the liver and 4.8 cm in the right hepatic lobe laterally. Also noted were multiple enlarged partially calcified lymph nodes in the love hepatis and celiac axis, bulky enlarged retrocrural and gastroesophageal lymph nodes, and bulky periaortic and retroperitoneal lymph nodes, all new from previous studies. With those findings he did opt to begin a trial of therapy with panitumumab as a single agent. He began cycle 1 on 11/17/2019. His further treatment was then put on hold due to a severe skin eruption, which developed despite having been given dexamethasone prophylaxis. During follow-up his rash slowly improved, and during that time there was a significant decline in his CEA level. As such, he opted to continue treatment, and he restarted panitumumab on 01/12/2020 with the dosage reduced to 2 mg/kg by IV infusion. He tolerated it with acceptable toxicity and he continued treatment at 2-week intervals. As of 02/07/2020 his CEA level had decreased to 18.9 ng/mL, and on 04/03/2020 and had further decreased to 15.0 ng/mL. Restaging CT scans on 04/13/2020 showed multiple metastatic pulmonary nodules throughout both lungs, with the size and number relatively unchanged compared to the December 2019 study. Heterogeneous and partially calcified metastatic lesions of both hepatic lobes also appeared stable, as did his bulky upper abdominal lymphadenopathy. Previously described tiny left pericolic gutter metastatic lesions appear to have resolved. A lytic lesion in the right iliac wing was noted to be stable. He continued with panitumumab. Mr Braga is here today for followup. He states he has been feeling pretty good. He continues to have significant skin eruption in the facial area and it is worse since his last treatment. He has had more itching and more lesions. He does tire easily and he has been using a walker when he has to go longer distances, but states he is using it less and less. He has a good appetite. He denies fever, chills and night sweats. He has had no mouth sores. He has some shortness of breath with activity, but he says his breathing is pretty good overall. He has had constipation, that has improved with medication. He has no other GI or complaints. He denies significant joint or bone pain. He has some numbness in his fingertips but states that is chronic and no worse. He denies any new concerns today other than the rash. His ECOG is 1. Past Medical History: Coronary artery disease Diabetes type I Hyperlipidemia Hypertension Sleep Apnea in 2016 Past Surgical History: Appendectomy Cataract excision Cholecystectomy Colonoscopy Coronary artery bypass PORT PLACEMENT DR. DAILY Allergies: Penicillin V Potassium Medications: Aspirin 1 Tablet (of 81 mg) Tablet, chewable Oral daily Clindamycin Phosphate 1 (1 %) Lotion Topical PRN Iron Supplement 1 Tablet (of 325 (65 fe) mg) Oral b.i.d. Metoprolol Tartrate 1 Tablet (of 25 mg) Oral b.i.d. Ondansetron 1 Tablet (of 4 mg) Tablet Dispersable Oral q 4 hours PRN Rosuvastatin Calcium 0.5 Tablet Oral at bedtime on Every Other Day Vitamin D3 1 (2000 Units) Tablet Oral daily Family History: Mr. Braga's mother is . Mr. Braga's father is . unknown family history, brother with history of heart disease. Social History: Mr. Braga is and he is retired. Mr. Braga quit smoking 12 years ago but had smoked 1.5 packs/day for 30 years. He has indicated exposure to the following products: cigarettes. Mr. Braga reports the following support systems: lives alone, lives in own house, supportive family/friends willing to assist with needs, and adequate transportation available for expected visits. His diet consists of regular meals. He indicates his activity level as: daily activities. Review Of Symptoms: Constitutional Denies fevers, chills, night sweats, excessive fatigue or weight loss. Allergic/Immunologic No reactions. Eyes Denies significant visual changes. No diplopia. No amaurosis. ENMT Denies changes in hearing, sore throat, mouth sores, difficulty or changes in swallowing ability, and/or sinus drainage. Hematologic/Lymphatic Denies easy bruising or bleeding. The patient denies any tender or palpable lymph nodes. Respiratory Denies dyspnea on exertion, chest pain, cough or hemoptysis. Denies orthopnea. Cardiovascular Denies anginal chest pain, palpitations or orthopnea. Gastrointestinal Denies nausea, vomiting, diarrhea, GI bleeding, or constipation. Denies change in bowel habits and/or stool color, no heartburn or early satiety. He states he has bloating that is new but his bowels are sluggish at times . He continues with stool softener and laxative as needed to make his bowels move. He states this is chronic and no worse than his normal. Genitourinary (M) Denies hematuria, dysuria, increased frequency, urgency, hesitancy or incontinence. Musculoskeletal Denies joint pain, swelling or redness. No decreased range of motion. Integumentary rash on scalp, face, neck, chest, back. Itching and worse since last treatment. Neurologic Denies headache, blurred vision, and no areas of focal weakness or numbness. Normal gait. No sensory problems. Psychiatric Denies insomnia, depression, judith or mood swings. Vital Signs: Performed on May 29, 2020 13:21 Height - 67.00 in Weight - 225.6 lbs (HIGH) BSA - 2.13 sq.m BMI - 35.33 (HIGH) Temperature - 99.3 F (HIGH) Pulse - 109 /min (HIGH) Respiration - 20 /min BP - 145/73 mm(hg) (HIGH) O2 Sat - 96 % Pain - 0,1 - No physically strenuous activity, but ambulatory and able to carry out light or sedentary work (e.g. office work, light house work). (ECOG) Physical Examination: Constitutional Alert, oriented, no acute distress. Skin pink, warm and dry. Head Normocephalic; atraumatic. Eyes Conjunctivae and sclerae are clear and without icterus. Pupils are reactive and equal. Neck Supple without masses or thyromegaly. No jugular venous distension. Hematologic/Lymphatic No petechiae or purpura. No tender or palpable lymph nodes in the cervical or supraclavicular areas. Respiratory Lungs are clear to auscultation without rhonchi or wheezing. Cardiovascular Regular rate and rhythm of heart without murmurs,clicks, gallops or rubs. Chest Left subclavian Port-A-Cath site has healed well. It is unremarkable. Abdomen Non-tender, non-distended, no masses, ascites. Bowel sounds noted in all quads. Back/Spine Non-tender to palpation. Extremities No visible deformities, no cyanosis, clubbing or edema. Musculoskeletal No tenderness or swelling, normal range of motion without obvious weakness. Integumentary Mild-raised, red lesions scattered on scalp, face, anterior chest and upper arms-no pustules. Multiple scabbed areas and multiple new lesions. Neurologic No sensory or motor deficits, normal cerebellar function, assisted gait-walks with cane-not new. Psychiatric Alert and oriented times three. Coherent speech. Verbalizes understanding of our discussions today. Laboratory:Test performed on May 29, 2020 11:35 Sodium 140 mmol/L Potassium 4.3 mmol/L Chloride 106 mmol/L CO2 25 mmol/L Anion Gap 13.3 BUN 14 mg/dL Creatinine 1.2 mg/dL Cr Clearance (Est) 74.9100 mL/min Glucose 81 mg/dL Osmolality - Calculated 290 mOsm/kg Calcium 9.3 mg/dL Protein, Total 7.4 g/dL Albumin 3.7 g/dL Globulin 3.7 g/dL Bilirubin, Total 0.6 mg/dL ALT (SGPT) 14 U/L AST (SGOT) 16 U/L Alkaline Phosphatase 85 IU/L WBC 13.1 10 3/uL RBC 5.58 10 6/uL HGB 13.5 g/dL HCT 44.4 % MCV 79.6 fL MCH 24.2 pg MCHC 30.4 g/dL RDW 16.7 % Platelet Count 228 10 3/cmm MPV 9.8 fL Neutrophils 9.26 10 3/uL Lymphocytes 1.7 10 3/uL Monocytes 1.3 10 3/uL Eosinophils 0.7 10 3/uL Basophils 0.1 10 3/uL Neutrophil % 70.6 % Lymphocyte % 13.0 % Monocyte % 9.7 % Eosinophil % 5.0 % Basophils % 1.0 % NRBC % 0 % Test performed on May 15, 2020 08:33 CEA 13.0 ng/mL Impression: 1. Low-grade adenocarcinoma of the distal sigmoid colon, stage IV (T3, N1c, M1b). He underwent left hemicolectomy on 07/03/2014. During subsequent follow-up he had enlarging, FDG avid pulmonary nodules, consistent with metastatic disease. He initially opted to have just symptomatic/supportive care. 2. He had non-ST elevation myocardial infarction at initial presentation, and he did require coronary artery bypass surgery prior to the colon resection. 3. Hypertension. 4. Hyperlipidemia. 5. Type II diabetes. 6. Nephrolithiasis. He underwent extracorporeal shockwave lithotripsy for a left distal ureteral stone in June 2018. Plan: PROBLEMS ADDRESSED TODAY: 1. Adenocarcinoma of the sigmoid colon, stage IV, with multiple pulmonary metastases and with metastatic involvement in the liver and upper abdominal lymph nodes. He began vectibix monotherapy in November 2019. During treatment there has been a significant decline in his CEA level but with his restaging CT scans showing stable findings. Overall, in the absence of any evidence of disease progression, he does appear to be getting significant benefit with his treatment. He has had significant skin toxicity with the vectibix. a. HOLD planned treatment today due to worsening acne-form rash. b. Continue supportive care with lotions, antihistamines and topical steroids as tolerated. C. Today's labs reviewed in detail discussed with Mr. Braga and a copy was given to him. WBC 13.1, hemoglobin 13.5, platelets 10 28,000 ANC is 9260. Potassium 4.3 creatinine 1.2 LFTs are normal. His last CEA on May 15, 2020 is 13 which is down from January 12, 2020 at which time was 27. 2. Follow-up plan: A. We will plan to see him back in 1 month with CBC CMP and CEA. B. Mr. Braga has been instructed to contact us in the interim should questions or problems arise. Signed By: Philip Oscar-, [facility] Xiang Castillo MD <<Signature on File>>
== END 2020-05-29 05:49 | disposition home or self-care (01) ==
LOC: ONCMED 05:50
PROVIDERS: PCP Family Medicine; Visit Provider Nurse Practitioner
DX: C18.7 Malignant neoplasm of sigmoid colon (principal); C78.7 Secondary malignant neoplasm of liver and intrahepatic bile duct; C77.2 Secondary and unspecified malignant neoplasm of intra-abdominal lymph nodes; C78.01 Secondary malignant neoplasm of right lung; C78.02 Secondary malignant neoplasm of left lung; L27.0 Generalized skin eruption due to drugs and medicaments taken internally; T45.1X5A Adverse effect of antineoplastic and immunosuppressive drugs, initial encounter; I10 Essential (primary) hypertension; E11.9 Type 2 diabetes mellitus without complications; E78.5 Hyperlipidemia, unspecified; Z79.899 Other long term (current) drug therapy
CPT/HCPCS: 36591; 80053; 85025; 99214

== ENCOUNTER 2020-07-03 08:37 | Outpatient (CLI) | payer MEDICARE, OTHER, SELFPAY ==
[2020-07-03 09:32] LABS: Basophils # 0.1 10^3/uL (0.0-0.1); Basophils % 1.3 %; Eosinophils # 0.3 10^3/uL (0.0-0.8); Eosinophils % 3.2 %; Lymphocytes # 1.3 10^3/uL (0.8-4.8); Lymphocytes % 12.9 %; Mean Corpuscular HGB Conc 30.8 g/dL (30.0-36.0); Mean Corpuscular Hemoglobin 23.8 pg (28.0-34.0); Mean Corpuscular Volume 77.4 fL (80-94); Mean Platelet Volume 9.6 fL (7.4-10.4); Monocytes # 0.9 10^3/uL (0.2-0.9); Neutrophils # 7.19 10^3/uL (1.8-7.7); Neutrophils % 72.8 %; Nucleated Red Blood Cells % 0 %; Platelet Count 335 10^3/cmm (130-400); Red Blood Count 5.04 10^6/uL (4.1-5.3); Red Cell Distribution Width 15.7 % (12.1-15.1); White Blood Count 9.9 10^3/uL (4.0-10.0)
[2020-07-03 09:35] LABS: Estmated Average Glucose 111; Hemoglobin A1C 5.5 % (4.0-6.0)
[2020-07-03 09:52] LABS: Carcinoembryonic Antigen 30.4 ng/mL (0.0-4.7)
[2020-07-03 10:04] LABS: Alanine Aminotransferase 12 U/L (0-41); Albumin Level 3.3 g/dL (3.5-5.2); Alkaline Phosphatase 104 IU/L (40-130); Anion Gap 14.2 (5-19); Aspartate Amino Transferase 19 U/L (0-40); Blood Urea Nitrogen 16 mg/dL (8-23); Calcium 8.7 mg/dL (8.5-10.5); Carbon Dioxide 25 mmol/L (22-29); Chloride 100 mmol/L (98-107); Globulin 4.3 g/dL (1.3-4.6); Glucose 87 mg/dL (65-115); Osmolality Calculated 281 mOsm/kg (285-295); Potassium 4.2 mmol/L (3.5-5.1); Sodium 135 mmol/L (136-145); Total Bilirubin 0.4 mg/dL (0.15-1.2); Total Protein 7.6 g/dL (6.6-8.7)
[2020-07-03] MEDS: sodium chloride 0.9% 250 ML IV (11:00)
[2020-07-03] MEDS: diphenhydrAMINE 50 mg/mL SDV 1mL 25 MG IVP (11:10)
[2020-07-03] MEDS: famotidine 20 mg/2 mL INJ IVP (11:15)
[2020-07-03] MEDS: acetaminophen 325 mg Tablet 650 MG PO (15:58)
--- NOTE | 2020-07-04 07:09 | ONC FU_ITS ---
Dr. Castillo Patient Follow-Up Note Patient: Gulshan Braga Unit #: [id number]: [id number] Dicatated By: Xiang Castillo M.D.Date of Visit:Jul 03, 2020 Onc Med Follow-up/Prog Note Chief Complaint: Colon cancer. 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 He had presented with influenza pneumonia and non-ST elevation ND. During anticoagulation in preparation for coronary artery bypass graft surgery he develop significant rectal bleeding. A CT of the abdomen and pelvis on 05/11/2014 showed a mass in the distal sigmoid colon with soft tissue stranding, but no evidence of disease in the liver. There were 2 discrete nodules in the left lower lobe up to 1.1 cm with a patchy foci in the lingula and the left lower lobe. He required a cardiac bypass graft surgery on 05/19/2014. Preoperative staging PET/CT was reportedly performed, but results were not available. He then underwent left hemicolectomy on 07/03/2014. His surgical pathology revealed 6 x 5 cm low-grade adenocarcinoma, invading through muscularis propria into the subserosal adipose tissue. Two tumor deposits were present on the pericolonic adipose tissue. None of the 24 lymph nodes harvested were involved with metastatic disease. No lymphovascular or perineural invasion was identified. Luminal obstruction of more than 70% was present. Margins were negative. Thus, his disease was pathologic stage at least IIIB (pT3, N1c, MX). Mismatch repair analysis was normal, without defect identified. The patient had relocated to [place] from [place], to be closer to his daughter. He moved to the [facility] in August 2014 and established care with the [facility] in [place]. His profile saw operator is Dr. Lomas. He was first seen by Dr. Vivas on 03/27/2015. His case was presented on the tumor board, consensus was to offer an adjuvant chemotherapy. In interim he had a CT of the chest/abdomen/pelvis on 04/10/2014 which showed increase in the two left lung nodules to 1.8 and 1.69 cm, concerning for metastatic disease. PET/CT on 05/05/2015 confirmed FDG positive two nodules in the left lung. A CT-guided biopsy on 06/11/2015 showed suspicious cells for malignancy, with only scant specimen available. Thus his disease was stage IV (M1b). Palliative FOLFOX and Avastin was recommended and was planned, but the patient decided against palliative chemotherapy. In the meantime, K-kylah mutation was performed on the original biopsy, and mutations were not detected. He was then followed on observation/symptomatic management. Restaging CT scans of the chest, abdomen, and pelvis on 07/24/2016 showed increasing size left pulmonary nodules/mass with the largest mass of the left lung base measuring 3.1 x 2.6 cm. Overall, four nodules were present with continued slow progression since April 2015 study. I had seen him for a follow-up visit in October 2016. He was still not interested in attempting any chemotherapy treatment, and he then failed to return for further follow-up. On 03/15/2018 he presented to the emergency room with back pain. He had evaluation at that time with lumbar spine CT, which showed no acute findings. He was diagnosed with acute left-sided sciatica and treated symptomatically. He returned to the emergency room on 03/28/2018. His renal CT at that time showed a partially obstructing 4 x 5 mm ureteral calculus at the left ureteropelvic junction. Other findings included prominent portal and celiac lymph nodes, a mass adjacent to the caudate lobe of the liver measuring 2.3 cm, and a low-attenuation lesion in the hepatic dome which appeared suspicious for a metastatic lesion. Also noted were enlarging pulmonary masses in the left lower lobe. I had seen him for a follow-up visit on 04/13/2018. At that point I did request further evaluation with a next generation sequencing study. It showed no actionable mutations. The tumor was noted to be MSI stable. He continued observation/expectant management for the colon cancer. However, he was still having problems related to the kidney stone. He had continued follow-up with Dr. Mckeon and on 06/14/2018 he underwent extracorporeal shockwave lithotripsy for the left distal ureteral stone. He required temporary ureteral stent placement. He had no complications with the procedure, and the stent was later removed. His other medical illnesses include hypertension, hyperlipidemia, type II diabetes, and coronary artery disease. He has a history of smoking a pack and a half of cigarettes daily for 30 years, but he quit smoking more than 10 years ago. INTERIM HISTORY: At his follow-up visit on 04/29/2019 his CEA level had increased to 21.7 ng/mL compared to 8.9 ng/mL in April 2018. However, he was still not interested in considering any treatment. He was then seen for a follow-up visit again on 10/27/2019. At that point his CEA had further increased to 41.4 ng/mL. He then had restaging CT scans of the chest, abdomen, and pelvis on 11/07/2019. Those studies showed significant progression of metastatic disease with increasing pulmonary nodules in both lungs, the largest in the left upper lobe measuring 3.5 x 2.9 cm and in the left lower lobe measuring 4.6 x 4.9 cm. There was progression of metastatic lesions in the right hepatic lobe, the largest measuring 4.3 x 3.4 cm in the dome of the liver and 4.8 cm in the right hepatic lobe laterally. Also noted were multiple enlarged partially calcified lymph nodes in the love hepatis and celiac axis, bulky enlarged retrocrural and gastroesophageal lymph nodes, and bulky periaortic and retroperitoneal lymph nodes, all new from previous studies. With those findings he did opt to begin a trial of therapy with panitumumab as a single agent. He began cycle 1 on 11/17/2019. His further treatment was then put on hold due to a severe skin eruption, which developed despite having been given dexamethasone prophylaxis. During follow-up his rash slowly improved, and during that time there was a significant decline in his CEA level. As such, he opted to continue treatment, and he restarted panitumumab on 01/12/2020 with the dosage reduced to 2 mg/kg by IV infusion. He tolerated it with acceptable toxicity and he continued treatment at 2-week intervals. As of 02/07/2020 his CEA level had decreased to 18.9 ng/mL, and it then stabilized. Restaging CT scans on 04/13/2020 showed multiple metastatic pulmonary nodules throughout both lungs, with the size and number relatively unchanged compared to the December 2019 study. Heterogeneous and partially calcified metastatic lesions of both hepatic lobes also appeared stable, as did his bulky upper abdominal lymphadenopathy. Previously described tiny left pericolic gutter metastatic lesions appear to have resolved. A lytic lesion in the right iliac wing was noted to be stable. With those findings, he continued the panitumumab monotherapy at 2-week intervals. However, following his treatment on 05/15/2020 the panitumumab was put on hold due to worsening skin eruption and other side effects. At that point his CEA was stable at 13.0 ng/mL. He is seen for a follow-up visit. He has had some improvement in his skin eruption since he has been off the panitumumab, though it has not completely resolved. His energy is still not very good and he complains that he has been sleeping a lot. His ECOG score is 2. His appetite is poor. He has lost weight. He does not have fever or night sweats. He is short of breath if he does a lot of walking. He has normal cough. He does not complain of chest pain. He has nausea off and on, but not as bad now as it had been. He had developed constipation significant of that he had to have it treated in the hospital. Bowel function since then has been so-so, though he is still not taking his bowel regimen daily. Bladder function remains adequate. He has joint pain, particularly in the right hip. It is managed adequately with medication. He does not complain of headache. He sometimes has dizziness. He has some numbness/tingling in his fingertips. Medications: Aspirin 1 Tablet (of 81 mg) Tablet, chewable Oral daily, Clindamycin Phosphate 1 (1 %) Lotion Topical PRN, Iron Supplement 1 Tablet (of 325 (65 fe) mg) Oral b.i.d., Metoprolol Tartrate 1 Tablet (of 25 mg) Oral b.i.d., Ondansetron 1 Tablet (of 4 mg) Tablet Dispersable Oral q 4 hours PRN, Rosuvastatin Calcium 0.5 Tablet Oral at bedtime on Every Other Day, Vitamin D3 1 (2000 Units) Tablet Oral daily Allergies: Penicillin V Potassium Vital Signs: Performed on Jul 03, 2020 10:42 Height - 67.00 in Weight - 207.2 lbs (LOW) BSA - 2.05 sq.m BMI - 32.45 (HIGH) Temperature - 98.0 F (LOW) Pulse - 84 /min Respiration - 18 /min BP - 133/78 mm(hg) O2 Sat - 98 % Pain - 0 Fatigue - 8 Physical Examination: Constitutional - He appears somewhat weak generally, Eyes - Sclerae nonicteric. Conjunctivae clear, ENMT - No lesions noted in the oral cavity, Hematologic/Lymphatic - No cervical, clavicular, or axillary adenopathy, Respiratory - Lungs sound clear, Cardiovascular - Heart rhythm appears regular. There is a II/ systolic murmur. There is no gallop or rub noted, Abdomen - Soft. Liver and spleen are not enlarged. There is a subcutaneous nodule in the left upper quadrant abdominal wall measuring 3 to 4 cm. There is no abdominal mass or ascites noted and there is no inguinal adenopathy, Extremities - No edema, Integumentary - His skin is generally dry and flaky. There is residual maculopapular eruption on the face and upper trunk, Neurologic - No focal neurologic deficits noted. Lab/Imaging: Test performed on Jul 03, 2020 09:05 Sodium 135 mmol/L Potassium 4.2 mmol/L Chloride 100 mmol/L Est Avg Glucose (eAG) 111 mg/dL CO2 25 mmol/L Anion Gap 14.2 BUN 16 mg/dL Creatinine 1.5 mg/dL Cr Clearance (Est) 59.9300 mL/min Glucose 87 mg/dL Osmolality - Calculated 281 mOsm/kg Calcium 8.7 mg/dL Protein, Total 7.6 g/dL Albumin 3.3 g/dL Globulin 4.3 g/dL Bilirubin, Total 0.4 mg/dL ALT (SGPT) 12 U/L AST (SGOT) 19 U/L Alkaline Phosphatase 104 IU/L Hemoglobin A1C % 5.5 % WBC 9.9 10 3/uL RBC 5.04 10 6/uL HGB 12.0 g/dL HCT 39.0 % MCV 77.4 fL MCH 23.8 pg MCHC 30.8 g/dL RDW 15.7 % Platelet Count 335 10 3/cmm MPV 9.6 fL Neutrophils 7.19 10 3/uL Lymphocytes 1.3 10 3/uL Monocytes 0.9 10 3/uL Eosinophils 0.3 10 3/uL Basophils 0.1 10 3/uL Neutrophil % 72.8 % Lymphocyte % 12.9 % Monocyte % 9.0 % Eosinophil % 3.2 % Basophils % 1.3 % NRBC % 0 % CEA 30.4 ng/mL Problem List: 1. Low-grade adenocarcinoma of the distal sigmoid colon, stage IV (T3, N1c, M1b). He underwent left hemicolectomy on 07/03/2014. During subsequent follow-up he had enlarging, FDG avid pulmonary nodules, consistent with metastatic disease. He initially opted to have just symptomatic/supportive care. 2. He had non-ST elevation myocardial infarction at initial presentation, and he did require coronary artery bypass surgery prior to the colon resection. 3. Hypertension. 4. Hyperlipidemia. 5. Type II diabetes. 6. Nephrolithiasis. He underwent extracorporeal shockwave lithotripsy for a left distal ureteral stone in June 2018. Problems Addressed with this Encounter and Plan: 1. Patient with low-grade adenocarcinoma of the sigmoid colon, stage IV, with multiple pulmonary metastases and with metastatic involvement in the liver and upper abdominal lymph nodes. He began panitumumab monotherapy in November 2019. During treatment there was a significant decline in his CEA level but with his restaging CT scans showing stable findings. Following his treatment on 05/15/2020 the panitumumab was put on hold due to worsening skin eruption and declining performance status. At that point his CEA level was stable at 13.0 ng/mL. He has since then had some improvement though not complete resolution of the skin eruption. He continues to have somewhat marginal performance status. There is now been a very significant increase in the CEA level to 30 ng/mL. Patient advised that it is very likely that his cancer is progressing. I think it is rather doubtful that the panitumumab will be effective in controlling it at this point. We discussed the fact that the other options are to start a standard cytotoxic chemotherapy regimen or to transition to symptomatic/supportive care. At this point he wants to restart the panitumumab. I had discussion with the patient and I also called his daughter to discuss his further management, and if there is continued increase in the CEA level, he will want to try the chemotherapy. He will return for treatment again in 2 weeks and for a follow-up visit in 4 weeks. 2. He has been mildly anemic. His previous studies were consistent with iron deficiency, and he did appear to show some response to oral iron supplementation. However, he has had difficulty tolerating the oral iron due to constipation and if there is any further recurrence of the iron deficiency anemia, he will be given parenteral iron replacement. In the meantime, he is given instructions to continue his bowel regimen consistently on a daily schedule. Signed By: Xiang Castillo M.D. <<Signature on File>>
== END 2020-07-03 08:38 | disposition home or self-care (01) ==
PROVIDERS: PCP Family Medicine; Visit Provider Internal Medicine Medical Oncology
DX: Z51.11 Encounter for antineoplastic chemotherapy (principal); C18.7 Malignant neoplasm of sigmoid colon; C78.7 Secondary malignant neoplasm of liver and intrahepatic bile duct; C78.02 Secondary malignant neoplasm of left lung; C78.01 Secondary malignant neoplasm of right lung; C77.2 Secondary and unspecified malignant neoplasm of intra-abdominal lymph nodes; R97.0 Elevated carcinoembryonic antigen [CEA]; R21 Rash and other nonspecific skin eruption; T45.1X5D Adverse effect of antineoplastic and immunosuppressive drugs, subsequent encounter; E11.65 Type 2 diabetes mellitus with hyperglycemia; D50.9 Iron deficiency anemia, unspecified; I25.2 Old myocardial infarction; I10 Essential (primary) hypertension; I25.10 Atherosclerotic heart disease of native coronary artery without angina pectoris
CPT/HCPCS: 80053; 82378; 83036; 85025; 96375; 96413; 99215; J1200; J3490; J7050; J9303

== ENCOUNTER 2020-07-17 06:49 | Outpatient (CLI) | payer MEDICARE, OTHER, SELFPAY ==
--- NOTE | 2020-07-28 16:22 | ONC FU_ITS ---
[facility] Patient Note Patient: Gulshan Braga Unit #: [id number]: 1950 Dictated By: Philip OscarDate of Visit: Jul 17, 2020 Onc MED Follow-Up/Prog Note Chief Complaint: Colon cancer. 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 He had presented with influenza pneumonia and non-ST elevation [place]. During anticoagulation in preparation for coronary artery bypass graft surgery he develop significant rectal bleeding. A CT of the abdomen and pelvis on 05/11/2014 showed a mass in the distal sigmoid colon with soft tissue stranding, but no evidence of disease in the liver. There were 2 discrete nodules in the left lower lobe up to 1.1 cm with a patchy foci in the lingula and the left lower lobe. He required a cardiac bypass graft surgery on 05/19/2014. Preoperative staging PET/CT was reportedly performed, but results were not available. He then underwent left hemicolectomy on 07/03/2014. His surgical pathology revealed 6 x 5 cm low-grade adenocarcinoma, invading through muscularis propria into the subserosal adipose tissue. Two tumor deposits were present on the pericolonic adipose tissue. None of the 24 lymph nodes harvested were involved with metastatic disease. No lymphovascular or perineural invasion was identified. Luminal obstruction of more than 70% was present. Margins were negative. Thus, his disease was pathologic stage at least IIIB (pT3, N1c, MX). Mismatch repair analysis was normal, without defect identified. The patient had relocated to [place] from [place], to be closer to his daughter. He moved to the [facility] in August 2014 and established care with the [facility] in [place]. His skid road man is Dr. Lomas. He was first seen by Dr. Vivas on 03/27/2015. His case was presented on the tumor board, consensus was to offer an adjuvant chemotherapy. In interim he had a CT of the chest/abdomen/pelvis on 04/10/2014 which showed increase in the two left lung nodules to 1.8 and 1.69 cm, concerning for metastatic disease. PET/CT on 05/05/2015 confirmed FDG positive two nodules in the left lung. A CT-guided biopsy on 06/11/2015 showed suspicious cells for malignancy, with only scant specimen available. Thus his disease was stage IV (M1b). Palliative FOLFOX and Avastin was recommended and was planned, but the patient decided against palliative chemotherapy. In the meantime, K-kylah mutation was performed on the original biopsy, and mutations were not detected. He was then followed on observation/symptomatic management. Restaging CT scans of the chest, abdomen, and pelvis on 07/24/2016 showed increasing size left pulmonary nodules/mass with the largest mass of the left lung base measuring 3.1 x 2.6 cm. Overall, four nodules were present with continued slow progression since April 2015 study. I had seen him for a follow-up visit in October 2016. He was still not interested in attempting any chemotherapy treatment, and he then failed to return for further follow-up. On 03/15/2018 he presented to the emergency room with back pain. He had evaluation at that time with lumbar spine CT, which showed no acute findings. He was diagnosed with acute left-sided sciatica and treated symptomatically. He returned to the emergency room on 03/28/2018. His renal CT at that time showed a partially obstructing 4 x 5 mm ureteral calculus at the left ureteropelvic junction. Other findings included prominent portal and celiac lymph nodes, a mass adjacent to the caudate lobe of the liver measuring 2.3 cm, and a low-attenuation lesion in the hepatic dome which appeared suspicious for a metastatic lesion. Also noted were enlarging pulmonary masses in the left lower lobe. Dr Castillo had seen him for a follow-up visit on 04/13/2018. At that point, a next generation sequencing study was requested. It showed no actionable mutations. The tumor was noted to be MSI stable. He continued observation/expectant management for the colon cancer. However, he was still having problems related to the kidney stone. He had continued follow-up with Dr. Mckeon and on 06/14/2018 he underwent extracorporeal shockwave lithotripsy for the left distal ureteral stone. He required temporary ureteral stent placement. He had no complications with the procedure, and the stent was later removed. His other medical illnesses include hypertension, hyperlipidemia, type II diabetes, and coronary artery disease. He has a history of smoking a pack and a half of cigarettes daily for 30 years, but he quit smoking more than 10 years ago. INTERIM HISTORY: At his follow-up visit on 04/29/2019 his CEA level had increased to 21.7 ng/mL compared to 8.9 ng/mL in April 2018. However, he was still not interested in considering any treatment. He was then seen for a follow-up visit again on 10/27/2019. At that point his CEA had further increased to 41.4 ng/mL. He then had restaging CT scans of the chest, abdomen, and pelvis on 11/07/2019. Those studies showed significant progression of metastatic disease with increasing pulmonary nodules in both lungs, the largest in the left upper lobe measuring 3.5 x 2.9 cm and in the left lower lobe measuring 4.6 x 4.9 cm. There was progression of metastatic lesions in the right hepatic lobe, the largest measuring 4.3 x 3.4 cm in the dome of the liver and 4.8 cm in the right hepatic lobe laterally. Also noted were multiple enlarged partially calcified lymph nodes in the love hepatis and celiac axis, bulky enlarged retrocrural and gastroesophageal lymph nodes, and bulky periaortic and retroperitoneal lymph nodes, all new from previous studies. With those findings he did opt to begin a trial of therapy with panitumumab as a single agent. He began cycle 1 on 11/17/2019. His further treatment was then put on hold due to a severe skin eruption, which developed despite having been given dexamethasone prophylaxis. During follow-up his rash slowly improved, and during that time there was a significant decline in his CEA level. As such, he opted to continue treatment, and he restarted panitumumab on 01/12/2020 with the dosage reduced to 2 mg/kg by IV infusion. He tolerated it with acceptable toxicity and he continued treatment at 2-week intervals. As of 02/07/2020 his CEA level had decreased to 18.9 ng/mL, and it then stabilized. Restaging CT scans on 04/13/2020 showed multiple metastatic pulmonary nodules throughout both lungs, with the size and number relatively unchanged compared to the December 2019 study. Heterogeneous and partially calcified metastatic lesions of both hepatic lobes also appeared stable, as did his bulky upper abdominal lymphadenopathy. Previously described tiny left pericolic gutter metastatic lesions appear to have resolved. A lytic lesion in the right iliac wing was noted to be stable. With those findings, he continued the panitumumab monotherapy at 2-week intervals. However, following his treatment on 05/15/2020 the panitumumab was put on hold due to worsening skin eruption and other side effects. At that point his CEA was stable at 13.0 ng/mL. Mr. Braga was seen for follow-up in June 2020. At that time he had been off of the Panitumumab for 6 to 8 weeks. Prior to his visit on July 03, 2020 his last treatment was on May 15, 2020. He had had resolution of his rash and was feeling better and opted to retry the Panitumumab. Mr. Braga is here today for follow-up. He is due for his 15th cycle of Panitumumab. He stop by the office this day with significant rash. He was feeling pretty miserable due to the rash. He states it had been draining on his pillow with pus and blood . He stated the itching was pretty manageable. At that point he was called in a prescription for oral clindamycin instructed to start it last night. He states so far is only taken 1 dose and has not seen a great big improvement in the rash but states itching seems to be some better. He states that he was miserable yesterday and acted inappropriately and was cranky . He apologized today although I did tell him that that was not necessary that he was not inappropriate and was no problem at all. We understood that he felt bad. He states other than the rash he feels really good. He states that he is eating good. His energy is fair. He is able to keep up with his cats who are constantly causing trouble he states they are really not a problem that they just entertain him a lot. He has been doing some chores around the house and tolerating this well. He denies any other new concerns. He has chronic pain and neuropathy with states is no worse. He denies any bowel or bladder changes. He denies any fever or chills. He states the drainage of the lesions on his face and neck and back of his head have been pretty significant. He states he thinks he has ruined a couple of pillowcases due to the drainage. The topical antibiotics have not helped much. He states the itching has been pretty intense. His ECOG is 2. Past Medical History: Coronary artery disease Diabetes type I Hyperlipidemia Hypertension Sleep Apnea in 2016 Past Surgical History: Appendectomy Cataract excision Cholecystectomy Colonoscopy Coronary artery bypass PORT PLACEMENT DR. DAILY Allergies: Penicillin V Potassium Medications: Aspirin 1 Tablet (of 81 mg) Tablet, chewable Oral daily Clindamycin Phosphate 1 (1 %) Lotion Topical PRN Iron Supplement 1 Tablet (of 325 (65 fe) mg) Oral b.i.d. Metoprolol Tartrate 1 Tablet (of 25 mg) Oral b.i.d. Ondansetron 1 Tablet (of 4 mg) Tablet Dispersable Oral q 4 hours PRN Rosuvastatin Calcium 0.5 Tablet Oral at bedtime on Every Other Day Vitamin D3 1 (2000 Units) Tablet Oral daily Family History: Mr. Braga's mother is . Mr. Braga's father is . unknown family history, brother with history of heart disease. Social History: Mr. Braga is and he is retired. Mr. Braga quit smoking 12 years ago but had smoked 1.5 packs/day for 30 years. He has indicated exposure to the following products: cigarettes. Mr. Braga reports the following support systems: lives alone, lives in own house, supportive family/friends willing to assist with needs, and adequate transportation available for expected visits. His diet consists of regular meals. He indicates his activity level as: daily activities. Review Of Symptoms: Vital Signs: Performed on Jul 17, 2020 13:28 Height - 67.00 in Weight - 216.2 lbs (HIGH) BSA - 2.09 sq.m BMI - 33.86 (HIGH) Temperature - 98.4 F Pulse - 51 /min (LOW) Respiration - 18 /min BP - 135/86 mm(hg) O2 Sat - 96 % Pain - 0,2 - Ambulatory/capable of all self-care, unable to perform any work activities. Up and about more than 50% of waking hours. (ECOG) Physical Examination: Constitutional Alert, oriented, no acute distress. Skin pink, warm and dry. Head Normocephalic; atraumatic. Eyes Conjunctivae and sclerae are clear and without icterus. Pupils are reactive and equal. Neck Supple without masses or thyromegaly. No jugular venous distension. Hematologic/Lymphatic No petechiae or purpura. No tender or palpable lymph nodes in the cervical or supraclavicular areas. Respiratory Lungs are clear to auscultation without rhonchi or wheezing. Cardiovascular Regular rate and rhythm of heart without murmurs,clicks, gallops or rubs. Chest Left subclavian Port-A-Cath site has healed well. It is unremarkable. Abdomen Non-tender, non-distended, no masses, ascites. Bowel sounds noted in all quads. Back/Spine Non-tender to palpation. Extremities No visible deformities, no cyanosis, clubbing or edema. Musculoskeletal No tenderness or swelling, normal range of motion without obvious weakness. Integumentary Moderate-raised, red lesions scattered on scalp, face, anterior chest and upper arms-scattered pustules. Multiple scabbed areas and multiple new lesions. No active bleeding. Neurologic No sensory or motor deficits, normal cerebellar function, assisted gait-walks with cane-not new. Psychiatric Alert and oriented times three. Coherent speech. Verbalizes understanding of our discussions today. Laboratory:Test performed on Jul 03, 2020 09:05 Sodium 135 mmol/L Potassium 4.2 mmol/L Chloride 100 mmol/L Est Avg Glucose (eAG) 111 mg/dL CO2 25 mmol/L Anion Gap 14.2 BUN 16 mg/dL Creatinine 1.5 mg/dL Cr Clearance (Est) 59.9300 mL/min Glucose 87 mg/dL Osmolality - Calculated 281 mOsm/kg Calcium 8.7 mg/dL Protein, Total 7.6 g/dL Albumin 3.3 g/dL Globulin 4.3 g/dL Bilirubin, Total 0.4 mg/dL ALT (SGPT) 12 U/L AST (SGOT) 19 U/L Alkaline Phosphatase 104 IU/L Hemoglobin A1C % 5.5 % WBC 9.9 10 3/uL RBC 5.04 10 6/uL HGB 12.0 g/dL HCT 39.0 % MCV 77.4 fL MCH 23.8 pg MCHC 30.8 g/dL RDW 15.7 % Platelet Count 335 10 3/cmm MPV 9.6 fL Neutrophils 7.19 10 3/uL Lymphocytes 1.3 10 3/uL Monocytes 0.9 10 3/uL Eosinophils 0.3 10 3/uL Basophils 0.1 10 3/uL Neutrophil % 72.8 % Lymphocyte % 12.9 % Monocyte % 9.0 % Eosinophil % 3.2 % Basophils % 1.3 % NRBC % 0 % CEA 30.4 ng/mL Test performed on Apr 03, 2020 09:04 eGFR 54.6 mL/min Test performed on Feb 07, 2020 09:23 Iron 39 mcg/dL Iron Binding Capacity (TIBC) 185 mcg/dl % Iron Saturation 21.0 % UIBC 146 mcg/dL Impression: 1. Low-grade adenocarcinoma of the distal sigmoid colon, stage IV (T3, N1c, M1b). He underwent left hemicolectomy on 07/03/2014. During subsequent follow-up he had enlarging, FDG avid pulmonary nodules, consistent with metastatic disease. He initially opted to have just symptomatic/supportive care. 2. He had non-ST elevation myocardial infarction at initial presentation, and he did require coronary artery bypass surgery prior to the colon resection. 3. Hypertension. 4. Hyperlipidemia. 5. Type II diabetes. 6. Nephrolithiasis. He underwent extracorporeal shockwave lithotripsy for a left distal ureteral stone in June 2018. Plan: PROBLEMS ADDRESSED TODAY: 1. Adenocarcinoma of the sigmoid colon, stage IV, with multiple pulmonary metastases and with metastatic involvement in the liver and upper abdominal lymph nodes. He began vectibix monotherapy in November 2019. During treatment there has been a significant decline in his CEA level but with his restaging CT scans showing stable findings. Overall, in the absence of any evidence of disease progression, he does appear to be getting significant benefit with his treatment. He has had significant skin toxicity with the vectibix. a. HOLD planned treatment today due to worsening acne-form rash. b. Clindamycin 150 mg three times daily oral started 07/16/2020-continue for 7-10 days. c. Continue supportive care with lotions, antihistamines and topical steroids as tolerated. 2. Follow-up plan: A. We will plan to see him back in 2 weeks as scheduled with CBC CMP and CEA. He will hold treatment until that followup. B. Mr. Braga has been instructed to contact us in the interim should questions or problems arise. Signed By: Philip Oscar-, [facility] Xiang Castillo MD <<Signature on File>>
== END 2020-07-17 06:50 | disposition home or self-care (01) ==
LOC: ONCMED 06:55
PROVIDERS: PCP Family Medicine; Visit Provider Internal Medicine Medical Oncology
DX: C18.7 Malignant neoplasm of sigmoid colon (principal); I25.10 Atherosclerotic heart disease of native coronary artery without angina pectoris; I10 Essential (primary) hypertension; E78.5 Hyperlipidemia, unspecified; E11.9 Type 2 diabetes mellitus without complications; N20.0 Calculus of kidney; Z79.899 Other long term (current) drug therapy
CPT/HCPCS: 99214

== ENCOUNTER 2020-07-31 05:56 | Outpatient (CLI) | payer MEDICARE, OTHER, SELFPAY ==
[2020-07-31 09:54] LABS: Basophils # 0.1 10^3/uL (0.0-0.1); Basophils % 1.4 %; Eosinophils # 0.5 10^3/uL (0.0-0.8); Eosinophils % 6.9 %; Hematocrit 36.8 % (42.0-52.0); Hemoglobin 11.1 g/dL (11.7-16.6); Lymphocytes # 1.4 10^3/uL (0.8-4.8); Lymphocytes % 17.5 %; Mean Corpuscular HGB Conc 30.2 g/dL (30.0-36.0); Mean Corpuscular Hemoglobin 23.5 pg (28.0-34.0); Mean Corpuscular Volume 77.8 fL (80-94); Monocytes # 0.9 10^3/uL (0.2-0.9); Monocytes % 11.6 %; Neutrophils # 4.86 10^3/uL (1.8-7.7); Neutrophils % 62.2 %; Nucleated Red Blood Cells % 0 %; Platelet Count 276 10^3/cmm (130-400); Red Blood Count 4.73 10^6/uL (4.1-5.3); Red Cell Distribution Width 16.6 % (12.1-15.1); White Blood Count 7.8 10^3/uL (4.0-10.0)
[2020-07-31 10:37] LABS: Alanine Aminotransferase 6 U/L (0-41); Albumin Level 3.6 g/dL (3.5-5.2); Alkaline Phosphatase 74 IU/L (40-130); Anion Gap 16.3 (5-19); Aspartate Amino Transferase 15 U/L (0-40); Blood Urea Nitrogen 16 mg/dL (8-23); Carbon Dioxide 24 mmol/L (22-29); Chloride 100 mmol/L (98-107); Globulin 3.5 g/dL (1.3-4.6); Potassium 4.3 mmol/L (3.5-5.1); Sodium 136 mmol/L (136-145); Total Bilirubin 0.4 mg/dL (0.15-1.2); Total Protein 7.1 g/dL (6.6-8.7)
[2020-07-31 10:54] LABS: Calcium 8.3 mg/dL (8.5-10.5); Glucose 62 mg/dL (65-115); Osmolality Calculated 281 mOsm/kg (285-295)
[2020-07-31 10:55] LABS: Carcinoembryonic Antigen 27.4 ng/mL (0.0-4.7)
--- NOTE | 2020-08-13 22:20 | ONC FU_ITS ---
[facility] Patient Note Patient: Gulshan Braga Unit #: [id number]: 1950 Dictated By: Philip OscarDate of Visit: Jul 31, 2020 Onc MED Follow-Up/Prog Note Chief Complaint: Colon cancer. 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 He had presented with influenza pneumonia and non-ST elevation [place]. During anticoagulation in preparation for coronary artery bypass graft surgery he develop significant rectal bleeding. A CT of the abdomen and pelvis on 05/11/2014 showed a mass in the distal sigmoid colon with soft tissue stranding, but no evidence of disease in the liver. There were 2 discrete nodules in the left lower lobe up to 1.1 cm with a patchy foci in the lingula and the left lower lobe. He required a cardiac bypass graft surgery on 05/19/2014. Preoperative staging PET/CT was reportedly performed, but results were not available. He then underwent left hemicolectomy on 07/03/2014. His surgical pathology revealed 6 x 5 cm low-grade adenocarcinoma, invading through muscularis propria into the subserosal adipose tissue. Two tumor deposits were present on the pericolonic adipose tissue. None of the 24 lymph nodes harvested were involved with metastatic disease. No lymphovascular or perineural invasion was identified. Luminal obstruction of more than 70% was present. Margins were negative. Thus, his disease was pathologic stage at least IIIB (pT3, N1c, MX). Mismatch repair analysis was normal, without defect identified. The patient had relocated to [place] from [place], to be closer to his daughter. He moved to the [facility] in August 2014 and established care with the [facility] in [place]. His agricultural technician is Dr. Lomas. He was first seen by Dr. Vivas on 03/27/2015. His case was presented on the tumor board, consensus was to offer an adjuvant chemotherapy. In interim he had a CT of the chest/abdomen/pelvis on 04/10/2014 which showed increase in the two left lung nodules to 1.8 and 1.69 cm, concerning for metastatic disease. PET/CT on 05/05/2015 confirmed FDG positive two nodules in the left lung. A CT-guided biopsy on 06/11/2015 showed suspicious cells for malignancy, with only scant specimen available. Thus his disease was stage IV (M1b). Palliative FOLFOX and Avastin was recommended and was planned, but the patient decided against palliative chemotherapy. In the meantime, K-kylah mutation was performed on the original biopsy, and mutations were not detected. He was then followed on observation/symptomatic management. Restaging CT scans of the chest, abdomen, and pelvis on 07/24/2016 showed increasing size left pulmonary nodules/mass with the largest mass of the left lung base measuring 3.1 x 2.6 cm. Overall, four nodules were present with continued slow progression since April [address] Castillo had seen him for a follow-up visit in October 2016. He was still not interested in attempting any chemotherapy treatment, and he then failed to return for further follow-up. On 03/15/2018 he presented to the emergency room with back pain. He had evaluation at that time with lumbar spine CT, which showed no acute findings. He was diagnosed with acute left-sided sciatica and treated symptomatically. He returned to the emergency room on 03/28/2018. His renal CT at that time showed a partially obstructing 4 x 5 mm ureteral calculus at the left ureteropelvic junction. Other findings included prominent portal and celiac lymph nodes, a mass adjacent to the caudate lobe of the liver measuring 2.3 cm, and a low-attenuation lesion in the hepatic dome which appeared suspicious for a metastatic lesion. Also noted were enlarging pulmonary masses in the left lower lobe. Dr Castillo had seen him for a follow-up visit on 04/13/2018. At that point, a next generation sequencing study was requested. It showed no actionable mutations. The tumor was noted to be MSI stable. He continued observation/expectant management for the colon cancer. However, he was still having problems related to the kidney stone. He had continued follow-up with Dr. Mckeon and on 06/14/2018 he underwent extracorporeal shockwave lithotripsy for the left distal ureteral stone. He required temporary ureteral stent placement. He had no complications with the procedure, and the stent was later removed. His other medical illnesses include hypertension, hyperlipidemia, type II diabetes, and coronary artery disease. He has a history of smoking a pack and a half of cigarettes daily for 30 years, but he quit smoking more than 10 years ago. INTERIM HISTORY: At his follow-up visit on 04/29/2019 his CEA level had increased to 21.7 ng/mL compared to 8.9 ng/mL in April 2018. However, he was still not interested in considering any treatment. He was then seen for a follow-up visit again on 10/27/2019. At that point his CEA had further increased to 41.4 ng/mL. He then had restaging CT scans of the chest, abdomen, and pelvis on 11/07/2019. Those studies showed significant progression of metastatic disease with increasing pulmonary nodules in both lungs, the largest in the left upper lobe measuring 3.5 x 2.9 cm and in the left lower lobe measuring 4.6 x 4.9 cm. There was progression of metastatic lesions in the right hepatic lobe, the largest measuring 4.3 x 3.4 cm in the dome of the liver and 4.8 cm in the right hepatic lobe laterally. Also noted were multiple enlarged partially calcified lymph nodes in the love hepatis and celiac axis, bulky enlarged retrocrural and gastroesophageal lymph nodes, and bulky periaortic and retroperitoneal lymph nodes, all new from previous studies. With those findings he did opt to begin a trial of therapy with panitumumab as a single agent. He began cycle 1 on 11/17/2019. His further treatment was then put on hold due to a severe skin eruption, which developed despite having been given dexamethasone prophylaxis. During follow-up his rash slowly improved, and during that time there was a significant decline in his CEA level. As such, he opted to continue treatment, and he restarted panitumumab on 01/12/2020 with the dosage reduced to 2 mg/kg by IV infusion. He tolerated it with acceptable toxicity and he continued treatment at 2-week intervals. As of 02/07/2020 his CEA level had decreased to 18.9 ng/mL, and it then stabilized. Restaging CT scans on 04/13/2020 showed multiple metastatic pulmonary nodules throughout both lungs, with the size and number relatively unchanged compared to the December 2019 study. Heterogeneous and partially calcified metastatic lesions of both hepatic lobes also appeared stable, as did his bulky upper abdominal lymphadenopathy. Previously described tiny left pericolic gutter metastatic lesions appear to have resolved. A lytic lesion in the right iliac wing was noted to be stable. With those findings, he continued the panitumumab monotherapy at 2-week intervals. However, following his treatment on 05/15/2020 the panitumumab was put on hold due to worsening skin eruption and other side effects. At that point his CEA was stable at 13.0 ng/mL. Mr. Braga was seen for follow-up in June 2020. At that time he had been off of the Panitumumab for 6 to 8 weeks. Prior to his visit on July 03, 2020, his last treatment was on May 15, 2020. He had had resolution of his rash and was feeling better and opted to retry the Panitumumab. He was treated with the vectibix on July 03, 2020. He presented for follow-up on July 17 after having presented the day before with significant rash. He was pretty miserable from the rash as it was itching and significantly irritated. He was placed on oral antibiotics, further treatment was obviously held and he is here today for follow-up. He states the rash is pretty well calmed down. The pustules are gone. The itching is gone. He still has a mild rash on the scalp chest and face but nothing compared to his previous visit. He states overall he feels pretty good. He is pretty motivated to continue with treatment. He has no new concerns today. His ECOG is 2. Past Medical History: Coronary artery disease Diabetes type I Hyperlipidemia Hypertension Sleep Apnea in 2016 Past Surgical History: Appendectomy Cataract excision Cholecystectomy Colonoscopy Coronary artery bypass PORT PLACEMENT DR. DAILY Allergies: Penicillin V Potassium Medications: Aspirin 1 Tablet (of 81 mg) Tablet, chewable Oral daily Clindamycin Phosphate 1 (1 %) Lotion Topical PRN Iron Supplement 1 Tablet (of 325 (65 fe) mg) Oral b.i.d. Metoprolol Tartrate 1 Tablet (of 25 mg) Oral b.i.d. Ondansetron 1 Tablet (of 4 mg) Tablet Dispersable Oral q 4 hours PRN Rosuvastatin Calcium 0.5 Tablet Oral at bedtime on Every Other Day Vitamin D3 1 (2000 Units) Tablet Oral daily Family History: Mr. Braga's mother is . Mr. Braga's father is . unknown family history, brother with history of heart disease. Social History: Mr. Braga is and he is retired. Mr. Braga quit smoking 12 years ago but had smoked 1.5 packs/day for 30 years. He has indicated exposure to the following products: cigarettes. Mr. Braga reports the following support systems: lives alone, lives in own house, supportive family/friends willing to assist with needs, and adequate transportation available for expected visits. His diet consists of regular meals. He indicates his activity level as: daily activities. Review Of Symptoms: <See Above> Vital Signs: Performed on Jul 31, 2020 10:58 Height - 67.00 in Weight - 213.4 lbs (LOW) BSA - 2.08 sq.m BMI - 33.42 (HIGH) Temperature - 98.4 F Pulse - 85 /min Respiration - 18 /min BP - 126/73 mm(hg) O2 Sat - 99 % Pain - 0 Fatigue - 4,2 - Ambulatory/capable of all self-care, unable to perform any work activities. Up and about more than 50% of waking hours. (ECOG) Physical Examination: Constitutional Alert, oriented, no acute distress. Skin pink, warm and dry. Head Normocephalic; atraumatic. Eyes Conjunctivae and sclerae are clear and without icterus. Pupils are reactive and equal. Extremities No visible deformities, no cyanosis, clubbing or edema. Musculoskeletal No tenderness or swelling, normal range of motion without obvious weakness. Integumentary Mild-raised, red lesions scattered on scalp, face, anterior chest and upper arms and chest wal. Multiple scabbed areas and NO new lesions. Neurologic No sensory or motor deficits, normal cerebellar function, assisted gait-walks with cane-not new. Psychiatric Alert and oriented times three. Coherent speech. Verbalizes understanding of our discussions today. Laboratory:Test performed on Jul 31, 2020 09:35 Sodium 136 mmol/L Potassium 4.3 mmol/L Chloride 100 mmol/L CO2 24 mmol/L Anion Gap 16.3 BUN 16 mg/dL Creatinine 1.4 mg/dL Cr Clearance (Est) 64.2100 mL/min Glucose 62 mg/dL Osmolality - Calculated 281 mOsm/kg Calcium 8.3 mg/dL Protein, Total 7.1 g/dL Albumin 3.6 g/dL Globulin 3.5 g/dL Bilirubin, Total 0.4 mg/dL ALT (SGPT) 6 U/L AST (SGOT) 15 U/L Alkaline Phosphatase 74 IU/L WBC 7.8 10 3/uL RBC 4.73 10 6/uL HGB 11.1 g/dL HCT 36.8 % MCV 77.8 fL MCH 23.5 pg MCHC 30.2 g/dL RDW 16.6 % Platelet Count 276 10 3/cmm MPV 10.0 fL Neutrophils 4.86 10 3/uL Lymphocytes 1.4 10 3/uL Monocytes 0.9 10 3/uL Eosinophils 0.5 10 3/uL Basophils 0.1 10 3/uL Neutrophil % 62.2 % Lymphocyte % 17.5 % Monocyte % 11.6 % Eosinophil % 6.9 % Basophils % 1.4 % NRBC % 0 % CEA 27.4 ng/mL Test performed on Jul 03, 2020 09:05 Est Avg Glucose (eAG) 111 mg/dL Hemoglobin A1C % 5.5 % Test performed on Apr 03, 2020 09:04 eGFR 54.6 mL/min Test performed on Feb 07, 2020 09:23 Iron 39 mcg/dL Iron Binding Capacity (TIBC) 185 mcg/dl % Iron Saturation 21.0 % UIBC 146 mcg/dL Impression: 1. Low-grade adenocarcinoma of the distal sigmoid colon, stage IV (T3, N1c, M1b). He underwent left hemicolectomy on 07/03/2014. During subsequent follow-up he had enlarging, FDG avid pulmonary nodules, consistent with metastatic disease. He initially opted to have just symptomatic/supportive care. 2. He had non-ST elevation myocardial infarction at initial presentation, and he did require coronary artery bypass surgery prior to the colon resection. 3. Hypertension. 4. Hyperlipidemia. 5. Type II diabetes. 6. Nephrolithiasis. He underwent extracorporeal shockwave lithotripsy for a left distal ureteral stone in June 2018. Plan/Problems Addressed at this Visit: PROBLEMS ADDRESSED TODAY: 1. Adenocarcinoma of the sigmoid colon, stage IV, with multiple pulmonary metastases and with metastatic involvement in the liver and upper abdominal lymph nodes. He began vectibix monotherapy in November 2019. During treatment there has been a significant decline in his CEA level but with his restaging CT scans showing stable findings. Overall, in the absence of any evidence of disease progression, he does appear to be getting significant benefit with his treatment. He has had significant skin toxicity with the vectibix. a. We will continue to hold the vectibix on discussed further chemotherapy options with Dr. Castillo upon his return to the office. b. Today's labs reviewed in detail discussed with Mr. Braga and his daughter and a copy was given to them. WBC 7.8, hemoglobin 11.1, platelets 1 76,000 ANC is 4900. Potassium 4.3 random glucose 62 creatinine 1.4 LFTs are normal. CEA is 27.4 which is down from 30.4 on July 03, 2020. His CEA however on May 15, 2020 was 13. His last hemoglobin A1c drawn here was July 03, 2020 it was reported at 5.5. c. Continue supportive care with lotions, antihistamines and topical steroids as tolerated. 2. Follow-up plan: A. We will plan to arrange follow-up and treatment plan after discussion with Dr. Castillo upon his return to the office in the next 2 to 3 days. B. Mr. rBaga has been instructed to contact us in the interim should questions or problems arise. Addendum on 08/01/2020 I spoke with Mr. Braga daughter to inform her that I had spoken with Dr. Castillo regarding further plan of care. Dr. Castillo has recommended pursuing FOLFIRI and Avastin until disease progression. We have requested a prior authorization for his insurance. When he starts the new chemotherapy he will need CBC CMP UA and CEA. I did discuss the chemotherapy potential side effects with her as well as the Avastin. We will do formal education upon his first visit. She is instructed to call us if she has any questions or if Mr. Braga has any questions after she discusses this plan of care with him. Signed By: Philip Oscar-, [facility] Xiang Castillo MD <<Signature on File>>
== END 2020-07-31 05:57 | disposition home or self-care (01) ==
PROVIDERS: PCP Family Medicine; Visit Provider Nurse Practitioner
DX: C18.7 Malignant neoplasm of sigmoid colon (principal); C78.7 Secondary malignant neoplasm of liver and intrahepatic bile duct; C78.01 Secondary malignant neoplasm of right lung; C78.02 Secondary malignant neoplasm of left lung; C77.2 Secondary and unspecified malignant neoplasm of intra-abdominal lymph nodes; E10.59 Type 1 diabetes mellitus with other circulatory complications; I25.10 Atherosclerotic heart disease of native coronary artery without angina pectoris; E78.5 Hyperlipidemia, unspecified; I10 Essential (primary) hypertension; G47.33 Obstructive sleep apnea (adult) (pediatric); N20.0 Calculus of kidney; Z79.899 Other long term (current) drug therapy
CPT/HCPCS: 36591; 80053; 82378; 85025; 99214

== ENCOUNTER 2020-09-20 07:51 | Outpatient (RCR) | payer MEDICARE, OTHER, SELFPAY ==
[2020-09-04 10:05] LABS: Basophils # 0.1 10^3/uL (0.0-0.1); Basophils % 1.3 %; Eosinophils # 0.5 10^3/uL (0.0-0.8); Eosinophils % 4.7 %; Hematocrit 38.5 % (42.0-52.0); Hemoglobin 11.8 g/dL (11.7-16.6); Lymphocytes # 1.4 10^3/uL (0.8-4.8); Mean Corpuscular HGB Conc 30.6 g/dL (30.0-36.0); Mean Corpuscular Hemoglobin 23.1 pg (28.0-34.0); Mean Corpuscular Volume 75.5 fL (80-94); Mean Platelet Volume 10.3 fL (7.4-10.4); Monocytes # 1.1 10^3/uL (0.2-0.9); Monocytes % 11.7 %; Nucleated Red Blood Cells % 0 %; Platelet Count 301 10^3/cmm (130-400); Red Cell Distribution Width 16.7 % (12.1-15.1); White Blood Count 9.7 10^3/uL (4.0-10.0)
[2020-09-04 10:23] LABS: Alanine Aminotransferase 17 U/L (0-41); Albumin Level 3.8 g/dL (3.5-5.2); Alkaline Phosphatase 117 IU/L (40-130); Anion Gap 17.3 (5-19); Aspartate Amino Transferase 26 U/L (0-40); Blood Urea Nitrogen 16 mg/dL (8-23); Calcium 8.6 mg/dL (8.5-10.5); Carbon Dioxide 23 mmol/L (22-29); Chloride 103 mmol/L (98-107); Globulin 3.6 g/dL (1.3-4.6); Glucose 78 mg/dL (65-115); Osmolality Calculated 288 mOsm/kg (285-295); Potassium 4.3 mmol/L (3.5-5.1); Sodium 139 mmol/L (136-145); Total Bilirubin 0.5 mg/dL (0.15-1.2); Total Protein 7.4 g/dL (6.6-8.7)
[2020-09-04 11:00] LABS: Carcinoembryonic Antigen 52.8 ng/mL (0.0-4.7)
[2020-09-04 11:01] LABS: Add Urine Microscopic? NO; Charge for UA Resulting for Rev
[2020-09-04] MEDS: sodium chloride 0.9% 250 ML 75 ML IV (11:14)
[2020-09-04] MEDS: atropine 1 mg/mL SDV 1 mL 0.4 MG IV (11:14)
[2020-09-04] MEDS: palonosetron 0.25 mg/5 mL SDV IVP (11:18)
[2020-09-04 11:32] LABS: Bilirubin Urine Neg (Negative); Blood Urine Neg (Negative); Glucose Urine UA Norm (Normal); Ketones Urine Negative (Negative); Leukocyte Esterase Urine Negative (Negative); Nitrate Urine Negative (Negative); Protein Urine Neg (Negative); Urine Appearance Clear (CLEAR); Urine Color Straw (Yellow); Urobilinogen Urine Norm (Negative); pH Urine 5 (5-7)
[2020-09-10 08:43] LABS: Add Urine Microscopic? NO; Charge for UA Resulting for Rev
[2020-09-10 08:47] LABS: Basophils # 0.1 10^3/uL (0.0-0.1); Eosinophils # 0.1 10^3/uL (0.0-0.8); Eosinophils % 1.4 %; Hemoglobin 11.2 g/dL (11.7-16.6); Lymphocytes # 0.9 10^3/uL (0.8-4.8); Lymphocytes % 17.8 %; Mean Corpuscular HGB Conc 30.3 g/dL (30.0-36.0); Mean Corpuscular Hemoglobin 22.5 pg (28.0-34.0); Mean Corpuscular Volume 74.3 fL (80-94); Mean Platelet Volume 10.6 fL (7.4-10.4); Monocytes # 0.1 10^3/uL (0.2-0.9); Monocytes % 2.5 %; Neutrophils # 3.74 10^3/uL (1.8-7.7); Neutrophils % 76.5 %; Nucleated Red Blood Cells % 0 %; Platelet Count 206 10^3/cmm (130-400); Red Blood Count 4.98 10^6/uL (4.1-5.3); Red Cell Distribution Width 16.4 % (12.1-15.1); White Blood Count 4.9 10^3/uL (4.0-10.0)
[2020-09-10 09:03] LABS: Bilirubin Urine Neg (Negative); Blood Urine Neg (Negative); Glucose Urine UA Norm (Normal); Ketones Urine Negative (Negative); Leukocyte Esterase Urine Negative (Negative); Nitrate Urine Negative (Negative); Protein Urine Neg (Negative); Urine Appearance Clear (CLEAR); Urine Color Yellow (Yellow); Urobilinogen Urine Norm (Negative); pH Urine 5 (5-7)
[2020-09-10 09:12] LABS: Carcinoembryonic Antigen 47.2 ng/mL (0.0-4.7)
[2020-09-10 09:23] LABS: Alanine Aminotransferase 11 U/L (0-41); Albumin Level 3.7 g/dL (3.5-5.2); Alkaline Phosphatase 104 IU/L (40-130); Anion Gap 16.9 (5-19); Aspartate Amino Transferase 13 U/L (0-40); Blood Urea Nitrogen 19 mg/dL (8-23); Calcium 8.1 mg/dL (8.5-10.5); Carbon Dioxide 21 mmol/L (22-29); Chloride 99 mmol/L (98-107); Globulin 3.8 g/dL (1.3-4.6); Glucose 89 mg/dL (65-115); Osmolality Calculated 278 mOsm/kg (285-295); Potassium 3.9 mmol/L (3.5-5.1); Sodium 133 mmol/L (136-145); Total Bilirubin 0.5 mg/dL (0.15-1.2); Total Protein 7.5 g/dL (6.6-8.7)
[2020-09-10 09:40] LABS: Estmated Average Glucose 91; Hemoglobin A1C 4.8 % (4.0-6.0)
[2020-09-10] MEDS: sodium chloride 0.9% 1,000 ML 999 ML IV (10:00)
[2020-09-10 11:28] LABS: Ferritin 771 ng/mL (30-400); Iron 41 ug/dL (59-158); Percent Saturation 25.7 % (20-50); Total Iron Binding Capacity 159 mcg/dl; Unsaturated Iron Binding 118 ug/dL (112-347)
--- NOTE | 2020-09-10 19:24 | ONC FU_ITS ---
Dr. Castillo Patient Follow-Up Note Patient: Gulshan Braga Unit #: [id number]: 1950 Dicatated By: Xiang Castillo M.D.Date of Visit:Sep 10, 2020 Onc Med Follow-up/Prog Note Chief Complaint: Colon cancer. 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 He had presented with influenza pneumonia and non-ST elevation SD. During anticoagulation in preparation for coronary artery bypass graft surgery he develop significant rectal bleeding. A CT of the abdomen and pelvis on 05/11/2014 showed a mass in the distal sigmoid colon with soft tissue stranding, but no evidence of disease in the liver. There were 2 discrete nodules in the left lower lobe up to 1.1 cm with a patchy foci in the lingula and the left lower lobe. He required a cardiac bypass graft surgery on 05/19/2014. Preoperative staging PET/CT was reportedly performed, but results were not available. He then underwent left hemicolectomy on 07/03/2014. His surgical pathology revealed 6 x 5 cm low-grade adenocarcinoma, invading through muscularis propria into the subserosal adipose tissue. Two tumor deposits were present on the pericolonic adipose tissue. None of the 24 lymph nodes harvested were involved with metastatic disease. No lymphovascular or perineural invasion was identified. Luminal obstruction of more than 70% was present. Margins were negative. Thus, his disease was pathologic stage at least IIIB (pT3, N1c, MX). Mismatch repair analysis was normal, without defect identified. The patient had relocated to [place] from [place], to be closer to his daughter. He moved to the [facility] in August 2014 and established care with the [facility] in [place]. 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 He was first seen by Dr. Vivas on 03/27/2015. His case was presented on the tumor board, consensus was to offer an adjuvant chemotherapy. In interim he had a CT of the chest/abdomen/pelvis on 04/10/2014 which showed increase in the two left lung nodules to 1.8 and 1.69 cm, concerning for metastatic disease. PET/CT on 05/05/2015 confirmed FDG positive two nodules in the left lung. A CT-guided biopsy on 06/11/2015 showed suspicious cells for malignancy, with only scant specimen available. Thus his disease was stage IV (M1b). Palliative FOLFOX and Avastin was recommended and was planned, but the patient decided against palliative chemotherapy. In the meantime, K-kylah mutation was performed on the original biopsy, and mutations were not detected. He was then followed on observation/symptomatic management. Restaging CT scans of the chest, abdomen, and pelvis on 07/24/2016 showed increasing size left pulmonary nodules/mass with the largest mass of the left lung base measuring 3.1 x 2.6 cm. Overall, four nodules were present with continued slow progression since April 2015 study. I had seen him for a follow-up visit in October 2016. He was still not interested in attempting any chemotherapy treatment, and he then failed to return for further follow-up. On 03/15/2018 he presented to the emergency room with back pain. He had evaluation at that time with lumbar spine CT, which showed no acute findings. He was diagnosed with acute left-sided sciatica and treated symptomatically. He returned to the emergency room on 03/28/2018. His renal CT at that time showed a partially obstructing 4 x 5 mm ureteral calculus at the left ureteropelvic junction. Other findings included prominent portal and celiac lymph nodes, a mass adjacent to the caudate lobe of the liver measuring 2.3 cm, and a low-attenuation lesion in the hepatic dome which appeared suspicious for a metastatic lesion. Also noted were enlarging pulmonary masses in the left lower lobe. I had seen him for a follow-up visit on 04/13/2018. At that point I did request further evaluation with a next generation sequencing study. It showed no actionable mutations. The tumor was noted to be MSI stable. He continued observation/expectant management for the colon cancer. However, he was still having problems related to the kidney stone. He had continued follow-up with Dr. Mckeon and on 06/14/2018 he underwent extracorporeal shockwave lithotripsy for the left distal ureteral stone. He required temporary ureteral stent placement. He had no complications with the procedure, and the stent was later removed. At his follow-up visit on 04/29/2019 his CEA level had increased to 21.7 ng/mL compared to 8.9 ng/mL in April 2018. However, he was still not interested in considering any treatment. He was then seen for a follow-up visit again on 10/27/2019. At that point his CEA had further increased to 41.4 ng/mL. He then had restaging CT scans of the chest, abdomen, and pelvis on 11/07/2019. Those studies showed significant progression of metastatic disease with increasing pulmonary nodules in both lungs, the largest in the left upper lobe measuring 3.5 x 2.9 cm and in the left lower lobe measuring 4.6 x 4.9 cm. There was progression of metastatic lesions in the right hepatic lobe, the largest measuring 4.3 x 3.4 cm in the dome of the liver and 4.8 cm in the right hepatic lobe laterally. Also noted were multiple enlarged partially calcified lymph nodes in the love hepatis and celiac axis, bulky enlarged retrocrural and gastroesophageal lymph nodes, and bulky periaortic and retroperitoneal lymph nodes, all new from previous studies. With those findings he did opt to begin a trial of therapy with panitumumab as a single agent. He began cycle 1 on 11/17/2019. His further treatment was then put on hold due to a severe skin eruption, which developed despite having been given dexamethasone prophylaxis. During follow-up his rash slowly improved, and during that time there was a significant decline in his CEA level. As such, he opted to continue treatment, and he restarted panitumumab on 01/12/2020 with the dosage reduced to 2 mg/kg by IV infusion. He tolerated it with acceptable toxicity and he continued treatment at 2-week intervals. As of 02/07/2020 his CEA level had decreased to 18.9 ng/mL, and it then stabilized. Restaging CT scans on 04/13/2020 showed multiple metastatic pulmonary nodules throughout both lungs, with the size and number relatively unchanged compared to the December 2019 study. Heterogeneous and partially calcified metastatic lesions of both hepatic lobes also appeared stable, as did his bulky upper abdominal lymphadenopathy. Previously described tiny left pericolic gutter metastatic lesions appear to have resolved. A lytic lesion in the right iliac wing was noted to be stable. With those findings, he continued the panitumumab monotherapy at 2-week intervals. However, following his treatment on 05/15/2020 the panitumumab was put on hold due to worsening skin eruption and other side effects. He had continued with cycle 14 of panitumumab on 07/03/2020. However, at that point his CEA level had increased significantly, to 30.4 ng/mL, and I then opted to stop that treatment. His other medical illnesses include hypertension, hyperlipidemia, type II diabetes, and coronary artery disease. He has a history of smoking a pack and a half of cigarettes daily for 30 years, but he quit smoking more than 10 years ago. INTERIM HISTORY: On 09/04/2020 he began cycle 1 of 2nd line treatment with FOLFIRI chemotherapy in combination with Avastin. His baseline CEA level was 52.8 ng/mL. He is seen for a follow-up visit. His energy has been down following his treatment last week. He was pretty draggy from Thursday through Thursday and is felt only a little better since then. He says he wants to sleep all the time and he does not have much activity. He is still up and around, though he does require a walker or cane for ambulation. Appetite is variable. He has lost weight. He does not have fever or night sweats. He has had no mouth sores. He has some shortness of breath with activity, but his breathing is pretty good. He does have cough intermittently. He does not complain of chest pain. He has nausea, which comes and goes. He also has constipation. Bladder function remains adequate. He has pain in his left shoulder and in his right hip, but that is not new. He does not complain of headache. He is having ongoing problems with balance and he has some numbness/tingling in his fingertips. Medications: Aspirin 1 Tablet (of 81 mg) Tablet, chewable Oral daily, Clindamycin Phosphate 1 (1 %) Lotion Topical PRN, Iron Supplement 1 Tablet (of 325 (65 fe) mg) Oral b.i.d., Metoprolol Tartrate 1 Tablet (of 25 mg) Oral b.i.d., Ondansetron 1 Tablet (of 4 mg) Tablet Dispersable Oral q 4 hours PRN, Rosuvastatin Calcium 0.5 Tablet Oral at bedtime on Every Other Day, Vitamin D3 1 (2000 Units) Tablet Oral daily Allergies: Penicillin V Potassium Vital Signs: Performed on Sep 10, 2020 09:46 Height - 67.00 in Weight - 203.8 lbs (LOW) BSA - 2.04 sq.m BMI - 31.92 (HIGH) Temperature - 98.2 F (LOW) Pulse - 80 /min Respiration - 18 /min BP - 114/73 mm(hg) O2 Sat - 99 % Pain - 0 Fatigue - 8 Physical Examination: Constitutional - He appears somewhat weak generally, Eyes - Sclerae nonicteric. Conjunctivae clear, ENMT - No lesions noted in the oral cavity, Hematologic/Lymphatic - No cervical, clavicular, or axillary adenopathy, Respiratory - Lungs sound clear, Cardiovascular - Heart rhythm is regular with some premature beats. There is a II/ systolic murmur. There is no gallop or rub noted, Abdomen - Mildly distended. Liver and spleen are not enlarged. There is no abdominal mass or ascites noted and there is no inguinal adenopathy, Extremities - No edema, Integumentary - There are some residual maculopapular lesions in the area of the nasolabial fold on the right side. The skin eruption is otherwise resolved, Neurologic - No focal neurologic deficits noted. Lab/Imaging: Test performed on Sep 10, 2020 08:15 Ua Color Yellow Ua Appearance Clear Ua Glucose Norm Ua Bilirubin Neg Ua Ketones Negative Ua Specific [place] 1.020 Ua Blood Neg Ua pH 5 Ua Protein Neg Ua Nitrites Negative Ua Leukocyte Esterase Negative Test performed on Sep 10, 2020 08:00 Ferritin 771 ng/mL Iron 41 mcg/dL Sodium 133 mmol/L Iron Binding Capacity (TIBC) 159 mcg/dl Potassium 3.9 mmol/L % Iron Saturation 25.7 % Chloride 99 mmol/L CO2 21 mmol/L UIBC 118 mcg/dL Anion Gap 16.9 BUN 19 mg/dL Creatinine 0.9 mg/dL Cr Clearance (Est) 103.0700 mL/min Glucose 89 mg/dL Osmolality - Calculated 278 mOsm/kg Calcium 8.1 mg/dL Protein, Total 7.5 g/dL Albumin 3.7 g/dL Globulin 3.8 g/dL Bilirubin, Total 0.5 mg/dL ALT (SGPT) 11 U/L AST (SGOT) 13 U/L Alkaline Phosphatase 104 IU/L WBC 4.9 10 3/uL RBC 4.98 10 6/uL HGB 11.2 g/dL HCT 37.0 % MCV 74.3 fL MCH 22.5 pg MCHC 30.3 g/dL RDW 16.4 % Platelet Count 206 10 3/cmm MPV 10.6 fL Neutrophils 3.74 10 3/uL Lymphocytes 0.9 10 3/uL Monocytes 0.1 10 3/uL Eosinophils 0.1 10 3/uL Basophils 0.1 10 3/uL Neutrophil % 76.5 % Lymphocyte % 17.8 % Monocyte % 2.5 % Eosinophil % 1.4 % Basophils % 1.0 % NRBC % 0 % CEA 47.2 ng/mL Problem List: 1. Low-grade adenocarcinoma of the distal sigmoid colon, stage IV (T3, N1c, M1b). He underwent left hemicolectomy on 07/03/2014. During subsequent follow-up he had enlarging, FDG avid pulmonary nodules, consistent with metastatic disease. He initially opted to have just symptomatic/supportive care. 2. He had non-ST elevation myocardial infarction at initial presentation, and he did require coronary artery bypass surgery prior to the colon resection. 3. Hypertension. 4. Hyperlipidemia. 5. Type II diabetes. 6. Nephrolithiasis. He underwent extracorporeal shockwave lithotripsy for a left distal ureteral stone in June 2018. Problems Addressed with this Encounter and Plan: 1. Patient with low-grade adenocarcinoma of the sigmoid colon, stage IV, with multiple pulmonary metastases and with metastatic involvement in the liver and upper abdominal lymph nodes. He began panitumumab monotherapy in November 2019. During treatment there was a significant decline in his CEA level but with his restaging CT scans showing stable findings. Following his treatment on 05/15/2020 the panitumumab was put on hold due to worsening skin eruption and declining performance status. At that point his CEA level was stable at 13.0 ng/mL. As of his follow-up visit on 07/03/2020 there was a significant increase in the CEA level to 30.4 ng/mL. At that point I opted to stop any further treatment with panitumumab. He ultimately agreed to a trial of second line therapy with FOLFIRI chemotherapy in combination with Avastin. He began cycle 1 on 09/04/2020. His baseline CEA level was 52.8 ng/mL. He has had worsening fatigue/somnolence following that treatment, but thus far he has not experienced any other significant toxicity. He returns in 1 week and we will determine at that time whether he wants to continue further chemotherapy. In the meantime, he is given further instructions on his bowel regimen. 2. He has been mildly anemic. His previous studies were suggestive of iron deficiency, but this has not been a consistent finding on follow-up studies. Thus far his hemoglobin/hematocrit levels have remained stable. Signed By: Xiang Castillo M.D. <<Signature on File>>
[2020-09-18 10:16] LABS: Basophils # 0.1 10^3/uL (0.0-0.1); Basophils % 1.4 %; Eosinophils # 0.1 10^3/uL (0.0-0.8); Eosinophils % 3.2 %; Hematocrit 38.9 % (42.0-52.0); Hemoglobin 12.1 g/dL (11.7-16.6); Lymphocytes # 0.7 10^3/uL (0.8-4.8); Lymphocytes % 19.3 %; Mean Corpuscular HGB Conc 31.1 g/dL (30.0-36.0); Mean Corpuscular Hemoglobin 22.8 pg (28.0-34.0); Mean Corpuscular Volume 73.4 fL (80-94); Mean Platelet Volume 9.7 fL (7.4-10.4); Monocytes # 1.1 10^3/uL (0.2-0.9); Monocytes % 30.7 %; Neutrophils # 1.56 10^3/uL (1.8-7.7); Neutrophils % 44.8 %; Nucleated Red Blood Cells % 0 %; Platelet Count 261 10^3/cmm (130-400); Positive M 1; White Blood Count 3.5 10^3/uL (4.0-10.0)
[2020-09-18 10:37] LABS: Alanine Aminotransferase 9 U/L (0-41); Albumin Level 3.7 g/dL (3.5-5.2); Alkaline Phosphatase 94 IU/L (40-130); Anion Gap 20.3 (5-19); Aspartate Amino Transferase 12 U/L (0-40); Blood Urea Nitrogen 19 mg/dL (8-23); Calcium 8.8 mg/dL (8.5-10.5); Carbon Dioxide 20 mmol/L (22-29); Chloride 99 mmol/L (98-107); Globulin 4.1 g/dL (1.3-4.6); Glucose 126 mg/dL (65-115); Osmolality Calculated 284 mOsm/kg (285-295); Potassium 4.3 mmol/L (3.5-5.1); Sodium 135 mmol/L (136-145); Total Bilirubin 0.5 mg/dL (0.15-1.2); Total Protein 7.8 g/dL (6.6-8.7)
[2020-09-18 11:05] LABS: Slide Review Slide Review Perform
[2020-09-18] MEDS: pantoprazole 40 mg SDV IV (12:28)
[2020-09-18] MEDS: sodium chloride 0.9% 1,000 ML 999 ML IV (12:30)
[2020-09-18] MEDS: ondansetron 2 mg/ML SDV 2 mL 8 MG IVP (12:30)
[2020-09-19] MEDS: sodium chloride 0.9% 1,000 ML 999 ML IV (15:52)
[2020-09-20] MEDS: sodium chloride 0.9% 1,000 ML 999 ML IV (14:00)
--- NOTE | 2020-10-07 20:25 | ONC FU_ITS ---
[facility] Patient Note Patient: Gulshan Braga Unit #: [id number]: 1950 Dictated By: Philip OscarDate of Visit: Sep 18, 2020 Onc MED Follow-Up/Prog Note Chief Complaint: Colon cancer. 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 He had presented with influenza pneumonia and non-ST elevation HI. During anticoagulation in preparation for coronary artery bypass graft surgery he develop significant rectal bleeding. A CT of the abdomen and pelvis on 05/11/2014 showed a mass in the distal sigmoid colon with soft tissue stranding, but no evidence of disease in the liver. There were 2 discrete nodules in the left lower lobe up to 1.1 cm with a patchy foci in the lingula and the left lower lobe. He required a cardiac bypass graft surgery on 05/19/2014. Preoperative staging PET/CT was reportedly performed, but results were not available. He then underwent left hemicolectomy on 07/03/2014. His surgical pathology revealed 6 x 5 cm low-grade adenocarcinoma, invading through muscularis propria into the subserosal adipose tissue. Two tumor deposits were present on the pericolonic adipose tissue. None of the 24 lymph nodes harvested were involved with metastatic disease. No lymphovascular or perineural invasion was identified. Luminal obstruction of more than 70% was present. Margins were negative. Thus, his disease was pathologic stage at least IIIB (pT3, N1c, MX). Mismatch repair analysis was normal, without defect identified. The patient had relocated to [place] from [place], to be closer to his daughter. He moved to the [facility] in August 2014 and established care with the [facility] in [place]. His sausage mixer is Dr. Lomas. He was first seen by Dr. Vivas on 03/27/2015. His case was presented on the tumor board, consensus was to offer an adjuvant chemotherapy. In interim he had a CT of the chest/abdomen/pelvis on 04/10/2014 which showed increase in the two left lung nodules to 1.8 and 1.69 cm, concerning for metastatic disease. PET/CT on 05/05/2015 confirmed FDG positive two nodules in the left lung. A CT-guided biopsy on 06/11/2015 showed suspicious cells for malignancy, with only scant specimen available. Thus his disease was stage IV (M1b). Palliative FOLFOX and Avastin was recommended and was planned, but the patient decided against palliative chemotherapy. In the meantime, K-kylah mutation was performed on the original biopsy, and mutations were not detected. He was then followed on observation/symptomatic management. Restaging CT scans of the chest, abdomen, and pelvis on 07/24/2016 showed increasing size left pulmonary nodules/mass with the largest mass of the left lung base measuring 3.1 x 2.6 cm. Overall, four nodules were present with continued slow progression since April [address] Castillo had seen him for a follow-up visit in October 2016. He was still not interested in attempting any chemotherapy treatment, and he then failed to return for further follow-up. On 03/15/2018 he presented to the emergency room with back pain. He had evaluation at that time with lumbar spine CT, which showed no acute findings. He was diagnosed with acute left-sided sciatica and treated symptomatically. He returned to the emergency room on 03/28/2018. His renal CT at that time showed a partially obstructing 4 x 5 mm ureteral calculus at the left ureteropelvic junction. Other findings included prominent portal and celiac lymph nodes, a mass adjacent to the caudate lobe of the liver measuring 2.3 cm, and a low-attenuation lesion in the hepatic dome which appeared suspicious for a metastatic lesion. Also noted were enlarging pulmonary masses in the left lower lobe. Dr Castillo had seen him for a follow-up visit on 04/13/2018. At that point, Dr Castillo did request further evaluation with a next generation sequencing study. It showed no actionable mutations. The tumor was noted to be MSI stable. He continued observation/expectant management for the colon cancer. However, he was still having problems related to the kidney stone. He had continued follow-up with Dr. Mckeon and on 06/14/2018 he underwent extracorporeal shockwave lithotripsy for the left distal ureteral stone. He required temporary ureteral stent placement. He had no complications with the procedure, and the stent was later removed. At his follow-up visit on 04/29/2019 his CEA level had increased to 21.7 ng/mL compared to 8.9 ng/mL in April 2018. However, he was still not interested in considering any treatment. He was then seen for a follow-up visit again on 10/27/2019. At that point his CEA had further increased to 41.4 ng/mL. He then had restaging CT scans of the chest, abdomen, and pelvis on 11/07/2019. Those studies showed significant progression of metastatic disease with increasing pulmonary nodules in both lungs, the largest in the left upper lobe measuring 3.5 x 2.9 cm and in the left lower lobe measuring 4.6 x 4.9 cm. There was progression of metastatic lesions in the right hepatic lobe, the largest measuring 4.3 x 3.4 cm in the dome of the liver and 4.8 cm in the right hepatic lobe laterally. Also noted were multiple enlarged partially calcified lymph nodes in the love hepatis and celiac axis, bulky enlarged retrocrural and gastroesophageal lymph nodes, and bulky periaortic and retroperitoneal lymph nodes, all new from previous studies. With those findings he did opt to begin a trial of therapy with panitumumab as a single agent. He began cycle 1 on 11/17/2019. His further treatment was then put on hold due to a severe skin eruption, which developed despite having been given dexamethasone prophylaxis. During follow-up his rash slowly improved, and during that time there was a significant decline in his CEA level. As such, he opted to continue treatment, and he restarted panitumumab on 01/12/2020 with the dosage reduced to 2 mg/kg by IV infusion. He tolerated it with acceptable toxicity and he continued treatment at 2-week intervals. As of 02/07/2020 his CEA level had decreased to 18.9 ng/mL, and it then stabilized. Restaging CT scans on 04/13/2020 showed multiple metastatic pulmonary nodules throughout both lungs, with the size and number relatively unchanged compared to the December 2019 study. Heterogeneous and partially calcified metastatic lesions of both hepatic lobes also appeared stable, as did his bulky upper abdominal lymphadenopathy. Previously described tiny left pericolic gutter metastatic lesions appear to have resolved. A lytic lesion in the right iliac wing was noted to be stable. With those findings, he continued the panitumumab monotherapy at 2-week intervals. However, following his treatment on 05/15/2020 the panitumumab was put on hold due to worsening skin eruption and other side effects. He had continued with cycle 14 of panitumumab on 07/03/2020. However, at that point his CEA level had increased significantly, to 30.4 ng/mL, and Dr Castillo then opted to stop that treatment. His other medical illnesses include hypertension, hyperlipidemia, type II diabetes, and coronary artery disease. He has a history of smoking a pack and a half of cigarettes daily for 30 years, but he quit smoking more than 10 years ago. INTERIM HISTORY: On 09/04/2020 he began cycle 1 of 2nd line treatment with FOLFIRI chemotherapy in combination with Avastin. His baseline CEA level was 52.8 ng/mL. He was seen for a follow-up visit on September 10, [address] Castillo. He had felt pretty washed out and had worsening fatigue somnolence following that treatment but had no skin eruptions, nausea vomiting or diarrhea. He was given a 1 week delay and is here today for follow-up and consideration of chemotherapy once again. Mr. Braga states he is feeling better but has felt awful for 2 weeks . He states he has been having watery diarrhea like urine . He denies any fever. He states that he has had emesis 2-3 times since his last treatment. The last time is been several days ago. He states he is really not nausea. He denies any vision changes or headaches. He states he is just continued to be washed out and is just not recovered. He states he is feeling better in general but just does not up to chemotherapy again today. He denies any new pain. He continues to have some right hip and left shoulder pain but states it is stable. He denies any cold-induced neuropathy. He denies any constipation. He denies any hematochezia. He denies any new shortness of breath or orthopnea. He denies any hemoptysis. He has lost more weight this week. His weight last week was 203.8 and his weight today is 193.6. He states he is trying to eat but just does not have much of an appetite. He does not like the taste of the Ensure has a hard time supplementing with that. He is utilizing a walker today for mobility just due to generalized weakness. He states he does not use it at home but did not want to take any chances of feeling weak and possibly falling while coming to the clinic today. His ECOG is 2. Past Medical History: Coronary artery disease Diabetes type I Hyperlipidemia Hypertension Sleep Apnea in 2016 Past Surgical History: Appendectomy Cataract excision Cholecystectomy Colonoscopy Coronary artery bypass PORT PLACEMENT DR. DAILY Allergies: Penicillin V Potassium Medications: Aspirin 1 Tablet (of 81 mg) Tablet, chewable Oral daily Atorvastatin Calcium (40 mg) Tablet Oral daily Clopidogrel Bisulfate (75 mg) Tablet Oral daily Magnesium (400 mg) Tablet Oral daily Metoprolol Tartrate 1 Tablet (of 25 mg) Oral b.i.d. Ondansetron 1 Tablet (of 4 mg) Tablet Dispersable Oral q 4 hours PRN Vitamin D3 1 (2000 Units) Tablet Oral daily Family History: Mr. Braga's mother is . Mr. Braga's father is . unknown family history, brother with history of heart disease. Social History: Mr. Braga is and he is retired. Mr. Braga quit smoking 12 years ago but had smoked 1.5 packs/day for 30 years. He has indicated exposure to the following products: cigarettes. Mr. Braga reports the following support systems: lives alone, lives in own house, supportive family/friends willing to assist with needs, and adequate transportation available for expected visits. His diet consists of regular meals. He indicates his activity level as: daily activities. Review Of Symptoms: <See Above> Vital Signs: Performed on Sep 18, 2020 11:53 Height - 67.00 in Weight - 193.6 lbs (LOW) BSA - 1.99 sq.m BMI - 30.32 (HIGH) Temperature - 97.9 F (LOW) Pulse - 121 /min (HIGH) Respiration - 18 /min BP - 145/87 mm(hg) (HIGH) O2 Sat - 98 % Pain - 9 Fatigue - 8,2 - Ambulatory/capable of all self-care, unable to perform any work activities. Up and about more than 50% of waking hours. (ECOG) Physical Examination: Constitutional Alert, oriented, no acute distress. Skin pink, warm and dry. He is pleasant and somewhat jovial today. Head Normocephalic; atraumatic. Eyes Conjunctivae and sclerae are clear and without icterus. Pupils are reactive and equal. Neck Supple without masses or thyromegaly. No jugular venous distension. Hematologic/Lymphatic No petechiae or purpura. No tender or palpable lymph nodes in the cervical or supraclavicular areas. Respiratory Lungs are clear to auscultation without rhonchi or wheezing. Cardiovascular Regular rate and rhythm of heart without murmurs,clicks, gallops or rubs. Chest Left subclavian Port-A-Cath site has healed well. It is unremarkable. Abdomen Non-tender, non-distended, no masses, ascites. Bowel sounds noted in all quads. Back/Spine Non-tender to palpation. Extremities No visible deformities, no cyanosis, clubbing or edema. Musculoskeletal No tenderness or swelling, normal range of motion without obvious weakness. Neurologic No sensory or motor deficits, normal cerebellar function, assisted gait-walking with walker today for stability per his report. Psychiatric Alert and oriented times three. Coherent speech. Verbalizes understanding of our discussions today. Laboratory:[ Test performed on Sep 18, 2020 09:58 Anion Gap 20.3 Osmolality - Calculated 284 mOsm/kg Protein, Total 7.8 g/dL Globulin 4.1 g/dL Bilirubin, Total 0.5 mg/dL ALT (SGPT) 9 U/L AST (SGOT) 12 U/L Alkaline Phosphatase 94 IU/L Neutrophil % 44.8 % Lymphocyte % 19.3 % Monocyte % 30.7 % Eosinophil % 3.2 % Basophils % 1.4 % NRBC % 0 % CBC Slide Review Slide Review Perform SLIDE REVIEW AGREES WITH AUTOMATED RESULTS. Test performed on Sep 10, 2020 08:15 Ua Color Yellow Ua Appearance Clear Ua Glucose Norm Ua Bilirubin Neg Ua Ketones Negative Ua Specific Anton 1.020 Ua Blood Neg Ua pH 5 Ua Protein Neg Ua Nitrites Negative Ua Leukocyte Esterase Negative Test performed on Sep 10, 2020 08:00 Ferritin 771 ng/mL Iron 41 mcg/dL Iron Binding Capacity (TIBC) 159 mcg/dl % Iron Saturation 25.7 % Est Avg Glucose (eAG) 91 mg/dL UIBC 118 mcg/dL Hemoglobin A1C % 4.8 % CEA 47.2 ng/mL Impression: 1. Low-grade adenocarcinoma of the distal sigmoid colon, stage IV (T3, N1c, M1b). He underwent left hemicolectomy on 07/03/2014. During subsequent follow-up he had enlarging, FDG avid pulmonary nodules, consistent with metastatic disease. He initially opted to have just symptomatic/supportive care. 2. He had non-ST elevation myocardial infarction at initial presentation, and he did require coronary artery bypass surgery prior to the colon resection. 3. Hypertension. 4. Hyperlipidemia. 5. Type II diabetes. 6. Nephrolithiasis. He underwent extracorporeal shockwave lithotripsy for a left distal ureteral stone in June 2018. Plan/Problems Addressed at this Visit: 1. Low-grade adenocarcinoma of the sigmoid colon, stage IV, with multiple pulmonary metastases and with metastatic involvement in the liver and upper abdominal lymph nodes. He began panitumumab monotherapy in November 2019. During treatment there was a significant decline in his CEA level but with his restaging CT scans showing stable findings. Following his treatment on 05/15/2020 the panitumumab was put on hold due to worsening skin eruption and declining performance status. At that point his CEA level was stable at 13.0 ng/mL. As of his follow-up visit on 07/03/2020 there was a significant increase in the CEA level to 30.4 ng/mL. At that point Dr Castillo opted to stop any further treatment with panitumumab. He ultimately agreed to a trial of second line therapy with FOLFIRI chemotherapy in combination with Avastin. He began cycle 1 on 09/04/2020. His baseline CEA level was 52.8 ng/mL. He has had worsening fatigue/somnolence following that treatment. but thus far he has not experienced any other significant toxicity. He presents today with persistent decreased performance status, significant weight loss and diarrhea. A. His planned FOLFIRI/Avastin treatment will be held again today due to performance status decline, diarrhea and persistent weight loss. B. He will receive supportive care with hydration, IV dexamethasone and antiemetics as indicated. I would like for him to receive this daily if he can obtain transportation to the clinic daily. C. We have discussed using Lomotil and Imodium for his diarrhea. D. I requested a C. difficile test for the persistent watery diarrhea. E. Today's labs reviewed in detail and discussed with Mr. Braga and a copy was given to him. WBC 3.5, hemoglobin 12.1, platelets 261,000, ANC is 1560. Potassium 4.3 sodium 135, random glucose 126 creatinine 1.3 LFTs are normal. It is noted that his last CEA from September 10, 2020 was 47.2. His hemoglobin A1c was 4.8. His weight is significantly decreased today at 193.6. His weight last week was 203.8 it is noted that his weight in May 29, 2020 was 225.6. 2. He has been mildly anemic. His previous studies were suggestive of iron deficiency, but this has not been a consistent finding on follow-up studies. Thus far his hemoglobin/hematocrit levels have remained stable. 3. Follow-up plan: A. we will plan to see him back in 1 week with CBC CMP UA for Avastin monitoring and a CEA. Hopefully will have the C. difficile results back by then as well. B. I requested that he have daily hydration until his follow-up visit next week. He could be a candidate for home health should he not be able to get transportation to come in daily. C. Has been encouraged to let us know if he has any fever/chills or any signs of infection as he is noted to be mildly neutropenic with an ANC of 1560 today. His ANC on day one of FOLFIRI/Avastin on September 04, 2020 was 6600. Signed By: Philip Oscar-, [facility] Xiang Castillo MD <<Signature on File>>
== END 2020-09-22 18:15 | disposition home or self-care (01) ==
LOC: ONCMED 07:51
PROVIDERS: Internal Medicine Medical Oncology; PCP Family Medicine; Visit Provider Nurse Practitioner
DX: Z51.11 Encounter for antineoplastic chemotherapy (principal); C18.7 Malignant neoplasm of sigmoid colon; C78.7 Secondary malignant neoplasm of liver and intrahepatic bile duct; C77.8 Secondary and unspecified malignant neoplasm of lymph nodes of multiple regions; C78.01 Secondary malignant neoplasm of right lung; C78.02 Secondary malignant neoplasm of left lung; I25.2 Old myocardial infarction; Z95.5 Presence of coronary angioplasty implant and graft; I10 Essential (primary) hypertension; E78.5 Hyperlipidemia, unspecified; E11.9 Type 2 diabetes mellitus without complications; N20.0 Calculus of kidney; Z79.899 Other long term (current) drug therapy
CPT/HCPCS: 80053; 81003; 82378; 82728; 83036; 83540; 83550; 85025; 87493; 96360; 96361; 96365; 96367; 96375; 96411; 96413; 96415; 96417; 96523; 99214; C9113; J0461; J0640; J1100; J2405; J2469; J7030; J7050; J9035; J9190; J9206

== ENCOUNTER 2020-09-22 18:17 | Inpatient (IN) | payer MEDICARE, OTHER, SELFPAY ==
--- NOTE | 2020-09-22 18:22 | CTR_ITS ---
PROCEDURE INFORMATION: Exam: CT Head Without Contrast Exam date and time: 09/22/2020 6:22 PM Age: 70 years old Clinical indication: Coma or unconsciousness; Additional info: AMS TECHNIQUE: Imaging protocol: Computed tomography of the head without contrast. Sagittal and coronal reformatted images were created and reviewed. Radiation optimization: All CT scans at this facility use at least one of these dose optimization techniques: automated exposure control; mA and/or kV adjustment per patient size (includes targeted exams where dose is matched to clinical indication); or iterative reconstruction. COMPARISON: CT head wo con* [id number] 12/21/2019 5:11 PM RADIATION DOSE METRICS: Total DLP (mGy-cm): 987.88 FINDINGS: Brain: No acute intracranial hemorrhage. No acute infarct. No intra-axial or extra-axial masses. Lopez-white matter differentiation is preserved. No cerebral edema. No extra-axial fluid collections. No midline shift. No evidence for Chiari 1 malformation. Stable mild atrophy of the brain parenchyma. Stable mildly decreased attenuation in the deep white matter, consistent with mild chronic microangiopathic change. Cerebral ventricles: No hydrocephalus. Paranasal sinuses: Visualized paranasal sinuses are clear. Mastoid air cells: Mastoid air cells are clear bilaterally. Orbital cavity: Globes and lenses, extraocular muscles, and optic nerves are intact bilaterally. No acute intraorbital abnormality. Vasculature: Atherosclerotic changes in the visualized arteries. Bones/joints: No acute fracture. Soft tissues: No acute abnormality of the extracranial soft tissues. CT/CT head wo con* [id number] IMPRESSION: 1. No acute abnormality of the brain. 2. Stable mild atrophy of the brain parenchyma. 3. Stable mild chronic white matter microangiopathic change. 4. Incidental/nonacute findings are listed in the report. Radiation Dose CTDIVOL = (mGy): DLP = 987.88 (mGy-cm)
--- NOTE | 2020-09-22 18:29 | XRR_ITS ---
PROCEDURE INFORMATION: Exam: XR Chest Exam date and time: 09/22/2020 6:29 PM Age: 70 years old Clinical indication: Dyspnea; Additional info: AMS TECHNIQUE: Imaging protocol: XR of the chest. Views: 1 view. COMPARISON: CT chest abd pel w con* 04/13/2020 9:31 AM FINDINGS: Tubes, catheters and devices: There is a left subclavian Port-A-Cath with the tip in the SVC. Lungs: Two large masses in the left upper lobe and left lower lobe are stable. Additional smaller pulmonary nodules on the prior CT scan are not as well visualized on the current chest x-ray. Pleural spaces: No pleural effusion. No pneumothorax. Heart/Mediastinum: Stable mild enlargement of the cardiac silhouette. Mediastinal contours are unremarkable. Vasculature: Vascular calcifications in the aorta. Bones/joints: Stable poststernotomy changes in the chest. Degenerative changes in the spine and shoulders. XR/XR chest 1V portable [id number] IMPRESSION: 1. Two large masses in the left upper lobe and left lower lobe are stable. Additional smaller pulmonary nodules on the prior CT scan are not as well visualized on the current chest x-ray. 2. No acute cardiopulmonary process. 3. Incidental/nonacute findings are listed in the report.
--- NOTE | 2020-09-22 18:30 | ECG_ITS ---
[facility] [place] Date: 2020-09-22 Pat Name: Gulshan Braga Department: Room: Gender: Male Hse Specialist: : 1950 Requested By: Jay Jay Tristan Order Number: [id number] Brooke MD: Augustin Lomas M.D. Measurements Intervals [place] Rate: 113 P: -6 MN: 127 QRS: 88 QRSD: 96 T: -23 QT: 326 QTc: 449 Interpretive Statements Atrial fibrillation rapid ventricular rate Frequent PVCs LOW QRS VOLTAGE IN PRECORDIAL LEADS [QRS DEFLECTION < 1.0 mV IN CHEST LEADS] NONSPECIFIC ST & T-WAVE ABNORMALITY Compared to ECG 06/11/2018 09:17:32 T-wave abnormality now present Sinus rhythm no longer present Myocardial infarct finding no longer present Electronically Signed On 09-23-2020 19:06:36 CDT by Augustin Lomas M.D. [email or web address]
[2020-09-22 18:32] VITALS: PULSE 113; RESP 18; TEMP 36.7; O2SAT 95; BMI 36.3
--- NOTE | 2020-09-22 18:37 | ED_ITS ---
HPI - Altered Mental Status General: Chief Complaint: Neuro Symptoms/Deficit Stated Complaint: AMS Time Seen by Provider: 09/22/20 18:22 History of Present Illness: HPI narrative: 70-year-old male with a last known well time was sometime yesterday evening. He talked to his family at that point. He did not respond well this morning when spoken to, the family ran errands, then checked on him 45 minutes or so prior to arrival, and found him down. On arrival, EMS found a blood sugar of 44, which increased to 130 with D10. However, his mental status did not improve. He is not responding except to noxious stimuli. He is nonverbal. He has forced gaze deviation to the left. He is not moving his right side. We are told by the family, that the patient is a DNR status. MD complaint: altered mental status and weakness Onset (ago): hour(s) (~24) Timing confirmed by: family member Severity: severe Consistency of symptoms: Constant Context: cancer Associated symptoms: Reports other Treatments prior to arrival: glucose and IV fluid Review of Systems General: Reports: ROS unobtainable due to medical condition PFSH ED PFSH: Medical History CAD (coronary artery disease) Cancer COLON CHF (congestive heart failure), NYHA class I Diabetes Dyslipidemia Fatigue Hypertension Ischemic cardiomyopathy Metastasis PRIYA (obstructive sleep apnea) Palpitation PVCs (premature ventricular contractions) Shortness of breath Type 2 diabetes mellitus Surgical History Hx of CABG 2015 Port-A-Cath in place (01/04/20) left subclavian Family History Other CAD (coronary artery disease) Myocardial infarction Social History Smoking and tobacco status: former smoker Quit status (tobacco): has quit using tobacco Year quit tobacco: 2004 Alcohol intake: never Physical Exam Const: EXAM LIMITATIONS: altered mental status GENERAL APPEARANCE: ill appearing and frail appearing NUTRITIONAL APPEARANCE: obese ORIENTATION/CONSCIOUSNESS: Yes awake and Yes patient obtunded HENMT: COMMON NORMALS: normocephalic HEAD & SCALP: normocephalic FACE & SINUS: face not symmetric Eye: COMMON NORMALS: Equal, round and reactive pupils present ALIGNMENT: Yes other (Forced left deviation) PUPIL: Yes Equal, round and reactive pupils present Chest: COMMONS NORMALS: normal inspection of the chest Resp: EFFORT & INSPECTION: Yes tachypneic, Yes grunting and Yes uses accessory muscles AUSCULTATION: rhonchi Cardio: COMMON NORMALS: regular rhythm RATE: tachycardic RHYTHM: regular rhythm GI: COMMON NORMALS: Soft to palpation INSPECTION: Yes abdominal distension (Mild) AUSCULTATION: Yes Hypoactive bowel sounds present PALPATION: Yes Soft to palpation Neuro: DOUG COMA SCALE: document GCS findings [place] coma scale eye opening: Spontaneous [place] coma scale verbal response: Sounds [place] coma scale motor response: Localising Doug coma scale total score: 11 SENSORIUM/ORIENTATION: Yes obtunded COORDINATION/BALANCE: No [id number] test normal SPEECH: abnormal speech GAIT: Yes Unable to assess gait MOTOR EXAM: Pronator motor function present pronator drift of right upper extremity (No effort against gravity) COORDINATION: [id number] test abnormal Course Consultations: Consultation #1: macie Time: 02:21 Vital Signs: Vital signs: Vital Signs Temperature 98.5 F 09/23/20 01:00 Pulse Rate 94 09/23/20 01:45 Respiratory Rate 18 09/23/20 01:45 Blood Pressure 131/68 09/23/20 01:45 Pulse Oximetry 98 09/23/20 01:45 MDM - Altered Mental Status MDM Narrative: Medical decision making narrative: NIH scale appears to be 30. Sugars back down to 76. Hanging D5W now. Heart rate is come down to 110. Blood pressure 127/79. Saturations 95% on room air. This patient is maintaining his own airway. He is a DNR patient, verified with family. He was started on D5W, and is maintaining his sugar. However, he is not really waking up appropriately. His head CT does not show acute stroke. Other laboratory is essentially benign, save an elevation in troponin initially. He will go to the ICU for close monitoring. Lab Data: Labs: Lab Results 09/22/20 09/22/20 09/22/20 Range/Units 18:34 18:39 19:01 WBC 16.8 H (4.0-10.0) 10^3/ uL RBC 5.87 H (4.1-5.3) 10^6/u L Hgb 13.4 (11.7-16.6) g/dL Hct 43.0 (42.0-52.0) % MCV 73.3 L (80-94) fL MCH 22.8 L (28.0-34.0) pg MCHC 31.2 (30.0-36.0) g/dL RDW 18.0 H (12.1-15.1) % Plt Count 318 (130-400) 10^3/c mm MPV 9.3 (7.4-10.4) fL Neut % (Auto) 74.8 % Lymph % (Auto) 4.6 % [place] % (Auto) 9.9 % Eos % (Auto) 0.1 % Baso % (Auto) 0.1 % Neut # (Auto) 12.58 H (1.8-7.7) 10^3/u L Lymph # (Auto) 0.8 (0.8-4.8) 10^3/u L [place] # (Auto) 1.7 H (0.2-0.9) 10^3/u L Eos # (Auto) 0.0 (0.0-0.8) 10^3/u L Baso # (Auto) 0.0 (0.0-0.1) 10^3/u L Nucleated RBC % (a uto) 0 % Nucleated RBCs # 0.0 /100WBC PT (12.1-14.9) SECO NDS INR (0.8-1.2) APTT (23.9-36.7) SECO NDS Specimen Type Arterial Sample Site Radial, left ABG pH 7.50 H (7.35-7.45) ABG pCO2 25.9 L (35-45) mmHg ABG pO2 65.1 L (80.0-100.0) mmH g ABG HCO3 20.2 L (22-26) mmol/L ABG Base Excess -1.6 (-2.0-2.0) mmol/ L Anival Test Pos Hematocrit 39.3 L (42-52) % O2 Delivery Device Room air FiO2 21.0 % Operations Research Group Manager ID Cak Sodium (136-145) mmol/L Potassium (3.5-5.1) mmol/L Chloride (98-107) mmol/L Carbon Dioxide (22-29) mmol/L Anion Gap (5-19) BUN (8-23) mg/dL Creatinine (0.7-1.2) mg/dL GFR Calculation Glucose (65-115) mg/dL POC Glucose 78 (70-110) mg/dL Calculated Osmolal ity (285-295) mOsm/k g Lactate (0.5-2.2) mmol/L Calcium (8.5-10.5) mg/dL Total Bilirubin (0.15-1.2) mg/dL AST (0-40) U/L ALT (0-41) U/L Alkaline Phosphata se (40-130) IU/L Creatine Kinase (39-308) U/L Troponin T Baselin e (0-15) ng/L Troponin T 120 Min enterprise (0-15) ng/L Delta Troponin T (0-10) ABS# C-Reactive Protein (0.0-4.9) mg/L Total Protein (6.6-8.7) g/dL Albumin (3.5-5.2) g/dL Globulin (1.3-4.6) g/dL Urine Color (Yellow) Urine Appearance (CLEAR) Urine pH (5-7) Ur Specific Gravit y (1.005-1.030) Urine Protein (Negative) Urine Glucose (UA) (Normal) Urine Ketones (Negative) Urine Blood (Negative) Urine Nitrate (Negative) Urine Bilirubin (Negative) Urine Urobilinogen (Negative) mg/dL Ur Leukocyte Jayna ase (Negative) Urine RBC (0-2) /hpf Urine WBC (0-5) /hpf Ur Squamous Epith Cells (0-5) /hpf Uric Acid Crystals /hpf Amorphous Sediment Urine Bacteria (NONE) /hpf Ethyl Alcohol (0-10) mg/dL 09/22/20 09/22/20 09/22/20 Range/Units 19:01 19:01 19:01 WBC (4.0-10.0) 10^3/ uL RBC (4.1-5.3) 10^6/u L Hgb (11.7-16.6) g/dL Hct (42.0-52.0) % MCV (80-94) fL MCH (28.0-34.0) pg MCHC (30.0-36.0) g/dL RDW (12.1-15.1) % Plt Count (130-400) 10^3/c mm MPV (7.4-10.4) fL Neut % (Auto) % Lymph % (Auto) % [place] % (Auto) % Eos % (Auto) % Baso % (Auto) % Neut # (Auto) (1.8-7.7) 10^3/u L Lymph # (Auto) (0.8-4.8) 10^3/u L [place] # (Auto) (0.2-0.9) 10^3/u L Eos # (Auto) (0.0-0.8) 10^3/u L Baso # (Auto) (0.0-0.1) 10^3/u L Nucleated RBC % (a uto) % Nucleated RBCs # /100WBC PT 14.60 (12.1-14.9) SECO NDS INR 1.11 (0.8-1.2) APTT 30.9 (23.9-36.7) SECO NDS Specimen Type Sample Site ABG pH (7.35-7.45) ABG pCO2 (35-45) mmHg ABG pO2 (80.0-100.0) mmH g ABG HCO3 (22-26) mmol/L ABG Base Excess (-2.0-2.0) mmol/ L Anival Test Hematocrit (42-52) % O2 Delivery Device FiO2 % Operations Research Group Manager ID Sodium 137 (136-145) mmol/L Potassium 3.7 (3.5-5.1) mmol/L Chloride 100 (98-107) mmol/L Carbon Dioxide 22 (22-29) mmol/L Anion Gap 18.7 (5-19) BUN 12 (8-23) mg/dL Creatinine 1.0 (0.7-1.2) mg/dL GFR Calculation Not Reportable Glucose 84 (65-115) mg/dL POC Glucose (70-110) mg/dL Calculated Osmolal ity 283 L (285-295) mOsm/k g Lactate 2.3 H (0.5-2.2) mmol/L Calcium 8.3 L (8.5-10.5) mg/dL Total Bilirubin 0.3 (0.15-1.2) mg/dL AST 19 (0-40) U/L ALT 13 (0-41) U/L Alkaline Phosphata se 145 H (40-130) IU/L Creatine Kinase 94 (39-308) U/L Troponin T Baselin e (0-15) ng/L Troponin T 120 Min enterprise (0-15) ng/L Delta Troponin T (0-10) ABS# C-Reactive Protein 79.0 H (0.0-4.9) mg/L Total Protein 6.8 (6.6-8.7) g/dL Albumin 3.6 (3.5-5.2) g/dL Globulin 3.2 (1.3-4.6) g/dL Urine Color (Yellow) Urine Appearance (CLEAR) Urine pH (5-7) Ur Specific Gravit y (1.005-1.030) Urine Protein (Negative) Urine Glucose (UA) (Normal) Urine Ketones (Negative) Urine Blood (Negative) Urine Nitrate (Negative) Urine Bilirubin (Negative) Urine Urobilinogen (Negative) mg/dL Ur Leukocyte Jayna ase (Negative) Urine RBC (0-2) /hpf Urine WBC (0-5) /hpf Ur Squamous Epith Cells (0-5) /hpf Uric Acid Crystals /hpf Amorphous Sediment Urine Bacteria (NONE) /hpf Ethyl Alcohol < 10 (0-10) mg/dL 09/22/20 09/22/20 09/22/20 Range/Units 19:01 19:15 21:20 WBC (4.0-10.0) 10^3/ uL RBC (4.1-5.3) 10^6/u L Hgb (11.7-16.6) g/dL Hct (42.0-52.0) % MCV (80-94) fL MCH (28.0-34.0) pg MCHC (30.0-36.0) g/dL RDW (12.1-15.1) % Plt Count (130-400) 10^3/c mm MPV (7.4-10.4) fL Neut % (Auto) % Lymph % (Auto) % [place] % (Auto) % Eos % (Auto) % Baso % (Auto) % Neut # (Auto) (1.8-7.7) 10^3/u L Lymph # (Auto) (0.8-4.8) 10^3/u L [place] # (Auto) (0.2-0.9) 10^3/u L Eos # (Auto) (0.0-0.8) 10^3/u L Baso # (Auto) (0.0-0.1) 10^3/u L Nucleated RBC % (a uto) % Nucleated RBCs # /100WBC PT (12.1-14.9) SECO NDS INR (0.8-1.2) APTT (23.9-36.7) SECO NDS Specimen Type Sample Site ABG pH (7.35-7.45) ABG pCO2 (35-45) mmHg ABG pO2 (80.0-100.0) mmH g ABG HCO3 (22-26) mmol/L ABG Base Excess (-2.0-2.0) mmol/ L Anival Test Hematocrit (42-52) % O2 Delivery Device FiO2 % Operations Research Group Manager ID Sodium (136-145) mmol/L Potassium (3.5-5.1) mmol/L Chloride (98-107) mmol/L Carbon Dioxide (22-29) mmol/L Anion Gap (5-19) BUN (8-23) mg/dL Creatinine (0.7-1.2) mg/dL GFR Calculation Glucose (65-115) mg/dL POC Glucose (70-110) mg/dL Calculated Osmolal ity (285-295) mOsm/k g Lactate (0.5-2.2) mmol/L Calcium (8.5-10.5) mg/dL Total Bilirubin (0.15-1.2) mg/dL AST (0-40) U/L ALT (0-41) U/L Alkaline Phosphata se (40-130) IU/L Creatine Kinase (39-308) U/L Troponin T Baselin e 75 H (0-15) ng/L Troponin T 120 Min enterprise 64.56 H (0-15) ng/L Delta Troponin T -10.44 L (0-10) ABS# C-Reactive Protein (0.0-4.9) mg/L Total Protein (6.6-8.7) g/dL Albumin (3.5-5.2) g/dL Globulin (1.3-4.6) g/dL Urine Color Yellow (Yellow) Urine Appearance Clear (CLEAR) Urine pH 5 (5-7) Ur Specific Gravit y 1.015 (1.005-1.030) Urine Protein Neg (Negative) Urine Glucose (UA) Norm (Normal) Urine Ketones Negative (Negative) Urine Blood 2+ H (Negative) Urine Nitrate Negative (Negative) Urine Bilirubin Neg (Negative) Urine Urobilinogen Norm (Negative) mg/dL Ur Leukocyte Jayna ase Negative (Negative) Urine RBC 40-50 H (0-2) /hpf Urine WBC 0-4 H (0-5) /hpf Ur Squamous Epith Cells 0-4 H (0-5) /hpf Uric Acid Crystals 5-10 H /hpf Amorphous Sediment Not Reportable Urine Bacteria Trace (NONE) /hpf Ethyl Alcohol (0-10) mg/dL Discharge Plan Discharge Patient Disposition: Admitted As Inpatient Admit Provider: Gaviota Hickey Clinical Impression: Acute CVA (cerebrovascular accident), Hypoglycemia Condition: Stable Coding Level of Care Code ED Dramatic Director for Chg Fwd Exam Comprehensive
[2020-09-22 18:45] LABS: ABG PCO2 25.9 mmHg (35-45); Arterial Blood Gas Hematocrit 39.3 % (42-52); Base Excess ABG -1.6 mmol/L (-2.0-2.0); Blood Gas Allen Test Pos; Blood Gas Operator Identificat CAK; Blood Gas Sample Site Radial, left; Blood Gas Sample Type Arterial; HCO3 ABG 20.2 mmol/L (22-26); Oxygen Device ROOM AIR; PO2 ABG 65.1 mmHg (80.0-100.0)
[2020-09-22] MEDS: dextrose 5%-sod chloride 0.9% 1,000 ML 100 ML IV (18:52)
[2020-09-22] MEDS: sodium chloride 0.9% 1,000 ML 999 ML IV (18:52)
[2020-09-22 19:28] LABS: Basophils % 0.1 %; Eosinophils % 0.1 %; Hemoglobin 13.4 g/dL (11.7-16.6); Lymphocytes # 0.8 10^3/uL (0.8-4.8); Lymphocytes % 4.6 %; Mean Corpuscular HGB Conc 31.2 g/dL (30.0-36.0); Mean Corpuscular Hemoglobin 22.8 pg (28.0-34.0); Mean Corpuscular Volume 73.3 fL (80-94); Mean Platelet Volume 9.3 fL (7.4-10.4); Monocytes # 1.7 10^3/uL (0.2-0.9); Monocytes % 9.9 %; Neutrophils # 12.58 10^3/uL (1.8-7.7); Neutrophils % 74.8 %; Nucleated Red Blood Cells % 0 %; Platelet Count 318 10^3/cmm (130-400); Red Blood Count 5.87 10^6/uL (4.1-5.3); White Blood Count 16.8 10^3/uL (4.0-10.0)
[2020-09-22 19:42] LABS: INR 1.11 (0.8-1.2)
[2020-09-22 19:43] LABS: Partial Thromboplastin Time 30.9 SECONDS (23.9-36.7)
[2020-09-22 19:47] LABS: Glucose Point of Care 78 mg/dL (70-110)
[2020-09-22 19:51] LABS: Troponin(5th) Baseline 75 ng/L (0-15)
[2020-09-22 19:52] LABS: Lactate (Lactic Acid level) 2.3 mmol/L (0.5-2.2)
[2020-09-22 19:53] LABS: Alanine Aminotransferase 13 U/L (0-41); Albumin Level 3.6 g/dL (3.5-5.2); Alkaline Phosphatase 145 IU/L (40-130); Anion Gap 18.7 (5-19); Aspartate Amino Transferase 19 U/L (0-40); Blood Urea Nitrogen 12 mg/dL (8-23); Calcium 8.3 mg/dL (8.5-10.5); Carbon Dioxide 22 mmol/L (22-29); Chloride 100 mmol/L (98-107); Creatine Phosphokinase 94 U/L (39-308); Globulin 3.2 g/dL (1.3-4.6); Glucose 84 mg/dL (65-115); Osmolality Calculated 283 mOsm/kg (285-295); Potassium 3.7 mmol/L (3.5-5.1); Sodium 137 mmol/L (136-145); Total Bilirubin 0.3 mg/dL (0.15-1.2); Total Protein 6.8 g/dL (6.6-8.7)
[2020-09-22 19:55] LABS: Alcohol Level < 10 mg/dL (0-10)
[2020-09-22 19:56] LABS: Slide Review Slide Review Perform
--- NOTE | 2020-09-22 20:30 | ECG_ITS ---
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 Measurements Intervals [place] Rate: 115 P: LA: QRS: 58 QRSD: 97 T: 14 QT: 344 QTc: 477 Interpretive Statements ATRIAL FIBRILLATION WITH RAPID VENTRICULAR RESPONSE WITH ABERRANT CONDUCTION OR VENTRICULAR PREMATURE COMPLEXES, in the form of couplets POSSIBLE RIGHT VENTRICULAR CONDUCTION DELAY [RSR (QR) IN V1/V2] POSSIBLE INFERIOR MYOCARDIAL INFARCTION [30 ms Q WAVE IN II/aVF], PROBABLY OLD ABNORMAL RHYTHM ECG Compared to ECG 06/11/2018 09:17:32 Aberrant conduction of supraventricular beat(s) now present Sinus rhythm no longer present Myocardial infarct finding still present Electronically Signed On 09-23-2020 19:13:02 CDT by Augustin Lomas M.D. [email or web address]store/NU/[id number]/[id number] lew
--- NOTE | 2020-09-22 21:47 | P.HP_ITS ---
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 Daughter is at the bedside who is endorsing that mostly she checks on him on daily basis and sometimes texts in the morning. She talked with him yesterday and did not notice any change in his speech. Today she came to check on him when he did not reply to her text. She found him in his bed, he was sliding down his bed, noticed frothing in his mouth, he was extremely confused. At that time EMS was called, blood sugar POC 44 mg/dL, EMS gave him D10 which improved his blood sugar to 76mg. As per the daughter, her father's functional status has been declining since initiation of chemotherapy, he has been experiencing diarrhea for about 1 to 2 weeks, associated with lethargy and fatigue, his sugar was running low for last 1 to 2 days but he never experienced any altered mental status or neurological status change. 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 Review of Systems General: Reports: ROS unobtainable due to medical condition (Delirium) Medications/Allergies Home Medications Medication Instructions Recorded Confirmed Last Taken Type cholecalciferol (vitamin D3) 50 50 mcg PO DAILY 10/20/19 08/17/20 1 Day Ago History mcg (2,000 unit) capsule ~01/03/20 glipizide 5 mg tablet 5 mg PO DAILY #90 tab 10/24/19 08/17/20 1 Day Ago Rx ~01/03/20 ondansetron 4 mg PO Q6H PRN #14 tab 01/09/20 08/17/20 Unknown Rx aspirin 81 mg tablet,delayed 81 mg PO DAILY #30 tab 02/21/20 08/17/20 Unknown Rx release magnesium oxide 400 mg PO DAILY #30 cap 02/21/20 08/17/20 Unknown Rx metoprolol succinate 25 mg 25 mg PO DAILY #30 tab 02/21/20 08/17/20 Unknown Rx tablet,extended release 24 hr rosuvastatin 20 mg tablet 20 mg PO DAILY #30 tab 02/21/20 08/17/20 Unknown Rx Allergies Allergy/AdvReac Type Severity Reaction Status Date / Time Penicillins AdvReac ADR-Itching Verified 08/17/20 08:33 PFSH Acute PFSH: Medical History CAD (coronary artery disease) Cancer COLON CHF (congestive heart failure), NYHA class I Diabetes Dyslipidemia Fatigue Hypertension Ischemic cardiomyopathy Metastasis PRIYA (obstructive sleep apnea) Palpitation PVCs (premature ventricular contractions) Shortness of breath Type 2 diabetes mellitus Surgical History Hx of CABG 2015 Port-A-Cath in place (01/04/20) left subclavian Family History Other CAD (coronary artery disease) Myocardial infarction Social History Smoking and tobacco status: former smoker Quit status (tobacco): has quit using tobacco Year quit tobacco: 2004 Alcohol intake: never Vitals/I&O/Wt Last Vital Signs Temp 98.0 F 09/22/20 18:32 Pulse 113 H 09/22/20 18:32 Resp 18 09/22/20 18:32 Pulse Ox 95 09/22/20 18:32 Weight last 48 hrs Weight 105.233 kg Physical Exam Narrative: EXAM NARRATIVE: elderly male Appears stated age Opens his eyes to noxious stimuli, left gaze preference, 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 on noxious stimuli NIH 32 Right hemiparesis, not able to move his lower extremities to painful stimuli, Stains of vomitus on right cheek Mild facial asymmetry on right side Patient makes incomprehensible sounds Opens his eyes but does not make eye contact S1, S2 sinus tachycardia Abdomen soft, surgical scar, Lower extremity cold dorsalis pedis pulses 1+ bilaterally no active ischemia gangrene or ulcer No joint swelling Pupils are sluggish in response to light however symmetrical No acute respiratory distress no active stridor or wheezing Data : 09/22/20 19:01 09/22/20 19:01 A&P Assessment and plan (1) Acute metabolic encephalopathy: Status: Acute (2) Acute CVA (cerebrovascular accident): Status: Acute (3) Right hemiparesis: Status: Acute Additional A&P Information Acute CVA with right sided hemiparesis acute metabolic encephalopathy Secondary to hypoglycemic event Check prolactin to rule out breakthrough seizure episode, last well-known time yesterday evening, not a TPA candidate He will need PT/speech evaluation once he is able to swallow will initiate dual antiplatelet therapy and high-dose statins I have requested CTA head and neck NIH 30-32 No cranial metastatic lesion noticed however chest x-ray showing 2 large masses which are stable as compared to previous imaging Continue dextrose infusion, not an ideal fluid choice but considering his hypoglycemic event benefits outweigh the risk, risk complication and benefits were explained to the daughter who agreed with the continuation of dextrose fluids With his gradual decline in functional status, metastatic cancer and recent stroke he carries guarded prognosis, if he is not able to swallow that would further complicate his situation Monitor on telemetry overnight Frequent neuro checks Daughter endorsed DNR/DNI status N.p.o. DVT prophylaxis Lovenox Attestations Medical Necessity Statement*: Anticipating stay in the hospital cross more than 2 midnights for CVA right-sided hemiparesis hypoglycemic episode Time Spent in Patient Care: 40mins Coding Level of Care Code Acute Concrete Craftsman for Gavino Lovell Diagnoses Acute metabolic encephalopathy G93.41 Acute CVA (cerebrovascular accident) I63.9 Right hemiparesis G81.91
[2020-09-22 21:58] LABS: Urine Appearance Clear (CLEAR); Urine Color Yellow (Yellow); pH Urine 5 (5-7)
[2020-09-22 21:59] LABS: Add Urine Microscopic? YES; Bilirubin Urine Neg (Negative); Blood Urine 2+ (Negative); Glucose Urine UA Norm (Normal); Ketones Urine Negative (Negative); Leukocyte Esterase Urine Negative (Negative); Nitrate Urine Negative (Negative); Protein Urine Neg (Negative); Specific Gravity, Urine 1.015 (1.005-1.030); Urobilinogen Urine Norm (Negative)
[2020-09-22 22:00] LABS: Bacteria Urine TRACE /hpf; RBC Urine 40-50 /hpf (0-2); Squamous Epithelial Cell Urine 0-4 /hpf (0-5); WBC Urine 0-4 /hpf (0-5)
[2020-09-22 22:01] LABS: Add Urine Culture? Yes
[2020-09-22 22:03] LABS: Troponin 5 2HR 64.56 ng/L (0-15)
[2020-09-22 22:04] LABS: Troponin 5 2HR Delta -10.44 ABS# (0-10)
--- NOTE | 2020-09-22 22:04 | CTR_ITS ---
PROCEDURE INFORMATION: Exam: CT Angiography Head With Contrast, Arteriography Exam date and time: 09/22/2020 10:04 PM Age: 70 years old Clinical indication: Other: Altered mental status TECHNIQUE: Imaging protocol: Computed tomography angiography of the head with contrast. Exam focused on the arteries. 3D rendering (Not supervised by radiologist): MIP and/or 3D reconstructed images were created by the technologist. Radiation optimization: All CT scans at this facility use at least one of these dose optimization techniques: automated exposure control; mA and/or kV adjustment per patient size (includes targeted exams where dose is matched to clinical indication); or iterative reconstruction. Contrast material: OMNI 350; Contrast volume: 95 ml; Contrast route: INTRAVENOUS (IV); COMPARISON: CT head wo con* [id number] 09/22/2020 6:23 PM RADIATION DOSE METRICS: Total DLP (mGy-cm): 2862 FINDINGS: ANTERIOR CIRCULATION: Right internal carotid artery: Unremarkable. Intracranial segment is patent with no significant stenosis. No aneurysm. Right middle cerebral artery: Unremarkable. No occlusion or significant stenosis. No aneurysm. Right anterior cerebral artery: Unremarkable. No occlusion or significant stenosis. No aneurysm. Left internal carotid artery: Unremarkable. Intracranial segment is patent with no significant stenosis. No aneurysm. Left middle cerebral artery: Unremarkable. No occlusion or significant stenosis. No aneurysm. Left anterior cerebral artery: Unremarkable. No occlusion or significant stenosis. No aneurysm. POSTERIOR CIRCULATION: Right vertebral artery: Unremarkable. No occlusion or significant stenosis. No aneurysm. Left vertebral artery: Unremarkable. No occlusion or significant stenosis. No aneurysm. Basilar artery: Unremarkable. No occlusion or significant stenosis. No aneurysm. Right posterior cerebral artery: Unremarkable. No occlusion or significant stenosis. No aneurysm. Left posterior cerebral artery: Unremarkable. No occlusion or significant stenosis. No aneurysm. Brain: No definite mass, mass effect, or midline shift. There is moderate cerebral atrophy.There is moderate diffuse heterogeneity of the white matter attenuation, consistent with chronic white matter ischemic changes. Cerebral ventricles: No ventriculomegaly. Bones/joints: Unremarkable. No acute fracture. Soft tissues: Unremarkable. IMPRESSION: No large vessel stenosis or occlusion. PROCEDURE INFORMATION: Exam: CT Angiography Neck With Contrast Exam date and time: 09/22/2020 10:04 PM Age: 70 years old Clinical indication: Other: Altered mental status TECHNIQUE: Imaging protocol: Computed tomography angiography of the neck with contrast. 3D rendering (Not supervised by radiologist): MIP and/or 3D reconstructed images were created by the technologist. Radiation optimization: All CT scans at this facility use at least one of these dose optimization techniques: automated exposure control; mA and/or kV adjustment per patient size (includes targeted exams where dose is matched to clinical indication); or iterative reconstruction. Contrast material: OMNI 350; Contrast volume: 95 ml; Contrast route: INTRAVENOUS (IV); COMPARISON: CT head wo con* [id number] 09/22/2020 6:23 PM RADIATION DOSE METRICS: Total DLP (mGy-cm): 2862 FINDINGS: Right common carotid artery: No stenosis. No dissection or occlusion. Right internal carotid artery: Small volume of calcified plaque in the right carotid artery bulb extending into the proximal right internal artery with mild severity stenosis less than 50%. Right external carotid artery: No occlusion or stenosis of the origin. Left common carotid artery: No stenosis. No dissection or occlusion. Left internal carotid artery: Small volume calcified plaque in the left carotid artery bifurcation extending into the proximal left internal carotid artery with mild severity stenosis less than 50%. Left external carotid artery: No occlusion or stenosis of the origin. Right vertebral artery: No stenosis. No dissection or occlusion. Left vertebral artery: No stenosis. No dissection or occlusion. Lymph nodes: Left supraclavicular lymphadenopathy. Two enlarged lymph nodes are identified [id number]. Largest node 2 cm x 1.7 cm. Soft tissues: Normal. No significant soft tissue swelling. Bones/joints: The cervical spine demonstrates moderate degenerative changes at multiple levels. Lungs: Multiple noncalcified spiculated pulmonary nodules in both upper lobes. There is partial visualization a larger airspace opacity in the left upper lobe which may represent consolidation or mass. Heart: Previous CABG. CT/CT angio headneck* [id number] IMPRESSION: 1. Less than 50% stenosis in the arteries. 2. Negative for vascular occlusion in the neck. 3. Metastatic disease in the chest and left supraclavicular fossa. REFERENCES: NASCET CRITERIA. The degree of internal carotid artery stenosis is based on NASCET criteria. Normal is no stenosis. Mild is less than 50% stenosis. Moderate is 50-69% stenosis. Severe is 70% to 99% stenosis. Total occlusion is no detectable patent lumen. Radiation Dose CTDIVOL = (mGy): DLP = 2862~2862 (mGy-cm)
[2020-09-22 22:37] LABS: Glucose Point of Care 83 mg/dL (70-110)
[2020-09-22 23:53] VITALS: BP 114/77; PULSE 114; RESP 16; O2SAT 97
[2020-09-22 23:56] VITALS: BP 114/77; PULSE 114; RESP 16; TEMP 37.3; O2SAT 97
[2020-09-23] VITALS (83 sets, daily range): BP systolic 97–145; BP diastolic 47–87; PULSE 74–108; RESP 0–24; TEMP 36.8–37.3; O2SAT 89–99
--- NOTE | 2020-09-23 00:30 | ECG_ITS ---
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 Measurements Intervals [place] Rate: 87 P: -15 FL: 138 QRS: 67 QRSD: 99 T: 102 QT: 395 QTc: 478 Interpretive Statements SINUS RHYTHM WITH FREQUENT VENTRICULAR PREMATURE COMPLEXES LOW QRS VOLTAGE IN PRECORDIAL LEADS [QRS DEFLECTION < 1.0 mV IN CHEST LEADS] MODERATE ST DEPRESSION [0.05+ mV ST DEPRESSION] Compared to ECG 09/22/2020 20:28:20 ST (T wave) deviation now present Sinus tachycardia no longer present T-wave abnormality no longer present Electronically Signed On 09-23-2020 19:24:06 CDT by Augustin Lomas M.D. [id number]
[2020-09-23] MEDS: iohexol 350 mg/mL 100 mL Btl IV (00:47)
[2020-09-23 00:59] LABS: Glucose Point of Care 93 mg/dL (70-110)
[2020-09-23] MEDS: enoxaparin 40 mg/0.4 mL Syringe SUBCUT (01:36)
[2020-09-23 03:25] LABS: Prolactin 6.25 ng/mL (4.0-15.2)
[2020-09-23 03:40] LABS: Glucose Point of Care 94 mg/dL (70-110)
[2020-09-23] MEDS: dextrose 10% 1,000 ML 75 ML IV (05:55)
[2020-09-23 07:11] LABS: Glucose Point of Care 120 mg/dL (70-110)
--- NOTE | 2020-09-23 07:26 | PC.NURSE ---
Report received. Assessment completed. No s/s of pain or SOB. Does not follow commands. Pulls away from painful stimuli to feet. BLE cool to touch, pulses palpable. D10 gtt infusing per orders. Will monitor.
--- NOTE | 2020-09-23 07:39 | PC.NURSE ---
Pt reassessment completed. Pt squeezed this nurses hand with L hand, firmly. R hand could feel a slight mounting inspector. Pt denied pain. Moves feet in response to tactile stimulation. attempted orientation of patient to best of abilities. Would not follow finger but appeared to be able to focus directly on this nurse. Will continue to reassess pt status. VSS.
[2020-09-23] MEDS: clopidogrel 75 mg Tablet PO (08:54)
[2020-09-23] MEDS: aspirin 81 mg EC Tablet PO (08:54)
--- NOTE | 2020-09-23 09:08 | PC.NURSE ---
Pt able to move all extremities. R side is noticeably weaker but improving rapidly. Sat up on side of bed with therapy assist. Tolerated pudding and meds. Leakage noted with water but swallows well with no residuals noted. Pt stood at side of bed with mod to max assist. Making some unintelligible sounds. Assisted back into bed. Will monitor.
[2020-09-23 09:29] LABS: Glucose Point of Care 112 mg/dL (70-110)
[2020-09-23 12:05] LABS: Glucose Point of Care 121 mg/dL (70-110)
[2020-09-23 15:02] LABS: Glucose Point of Care 123 mg/dL (70-110)
--- NOTE | 2020-09-23 17:41 | PC.NURSE ---
Pt resting in bed. Speech is becoming clearer. Able to state full name with some encouragement. Remains a little unclear. Able to move extremities more. 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 Bullock cath draining freely to BSD. Ate 25% of dinner meal and drank approx 240ml of thickened tea. Tolerated well. Will monitor.
[2020-09-23 17:54] LABS: Glucose Point of Care 144 mg/dL (70-110)
--- NOTE | 2020-09-23 18:02 | P.PN_ITS ---
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 Upon arrival to hospital patients initial laboratory workup showed a WBC of 16 .8, hemoglobin of 13.4, hematocrit of 43.0 and a platelet count of 318. INR 1.11. Arterial blood gases showed a pH of 7.50, pCO2 of 25.9, PO2 of 65.1 and a bicarb of 20.2. Sodium 137, potassium 3.7, chloride 100, bicarb 22, BUN 12 and creatinine of 1.0. Lactic acid of 2.3. Alkaline phosphatase of 145. Troponin T delta of -10.44. CRP of 79.0. Prolactin of 6.25.Head CT without contrast did not show any evidence of acute intracranial hemorrhage.CT angio of head and neck did not show any evidence of large vessel stenosis or occlusion. Less than 50% stenosis in arteries. Metastatic disease in the chest and left superior clavicular fossa was seen.Patient was continued on aspirin 81 mg daily with addition Plavix 75 mg daily. Additionally was continued Lipitor 80 mg p.o. q.h.s. Upon arrival to Er patient was noted to have aphasia with right upper and lower extremity weakness. Initial NIH of 30 was noted. In addition he was found to have hypoglycemia with a glucose of 76. He was started on d5-> d10. 09/23/20 Patient gradually improved through out the day. He was able to tolerate oral intake. No evidence of aspiration. Noted improvement in right upper and lower extremity weakness.. Following commands. No fever, chills, nausea or vomiting. Medications: Reviewed: Yes Vitals/I&O/Wt Last Vital Signs Temp 98.5 F 09/23/20 16:00 Pulse 88 09/23/20 16:30 Resp 22 H 09/23/20 16:30 BP 135/62 09/23/20 16:30 Pulse Ox 97 09/23/20 16:30 09/23/20 09/23/20 09/23/20 06:59 14:59 22:59 Intake Total 120 / 120 Output Total 625 / 625 950 / 950 Balance -625 / -625 -830 / -830 Weight last 48 hrs Weight 92.578 kg Weight 105.233 kg Physical Exam Narrative: EXAM NARRATIVE: General : Aphasic, responds to stimuli, AND HEENT : Grossly unremarkable. CVS: NSR Chest : CTABL Abd: Soft, NT, ND Ext : No edema Urinary Catheter Management^: Bullock: Cath Placed During This Visit: yes Reason for Continuing Indwelling Catheter: Accurate Measurement of Urinary Output in Critically Ill Patients Urinary Catheter Date of Insertion: 09/22/20 Data : 09/22/20 19:01 09/22/20 19:01 Micro: Microbiology 09/22/20 21:22 Blood Culture - Preliminary Blood SPECIMEN COLLECTED 09/22/20 21:20 Blood Culture - Preliminary Blood SPECIMEN COLLECTED A&P Assessment and plan (1) Hypoglycemia: Status: Acute (2) Acute CVA (cerebrovascular accident): Status: Acute (3) Right hemiparesis: Status: Acute (4) Ischemic cardiomyopathy: Status: Acute (5) Dyslipidemia: Status: Acute (6) Hypertension: Status: Acute (7) Type 2 diabetes mellitus: Status: Acute R-sided weakness/aphasia suspected Acute CVA NIH 30 on arrival - continue Neuro-checks CT head / CTA H&N - no acute abnormality Aspirin 81 mg po daily continued Plavix 75 mg PO daily added High-intensity statin - Lipitor 80 mg PO daily Will obtain MRI w/o contrast in AM ECHO - pending Holding antihypertensive - resume tomorrow Check Lipid Panel / A1c in am Avoid Hypotonic fluid for now - NS at 50cc/hr started D/w Agreeable to SNF / Rehab at discharge Consult PT/OT/ST Diabetes Mellitus with hypoglycemia Poor Po intake. On D10 however given above - stopped Q4hr glucose checks Amp d50 for blood sugars < 70 A1c in am Hypertension Holding home metoprolol Dyslipidemia Lipitor 80 mg PO daily Lipid panel in am Metastatic colon cancer s/p r. Hemicolectomy on chemo No change to management as per outpatient Follow up with oncology once discharged. Disposition: Likely will need SNF at discharge. Attestations 2 Medical Necessity Statement*: Continue hospitalization for management of right sided weakness with pending neurological work up Time Spent in Patient Care: Greater than 35 minutes (>than 50% of time spent in counselling and/or direct pt care on unit) . 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
[2020-09-23] MEDS: sodium chloride 0.9% 1,000 ML 50 ML IV (18:33)
[2020-09-23] MEDS: atorvastatin 40 mg Tablet 80 MG PO (20:52)
[2020-09-23 20:59] LABS: Glucose Point of Care 108 mg/dL (70-110)
--- NOTE | 2020-09-23 23:46 | PC.NURSE ---
ASSUMING CARE Patient is resting in bed on room air. Patient tells nurse his name with some encouragement, but has a hard time with conversation but will answer yes and no questions. Left disk operator is greater than right, but right is mildly weak. Patient raises bilateral arms with no assistance. Bullock catheter in place and draining. Normal saline running at 50 mL/hour.
[2020-09-24] VITALS (42 sets, daily range): BP systolic 105–168; BP diastolic 54–100; PULSE 74–107; RESP 0–23; TEMP 36.8–37.2; O2SAT 89–99
[2020-09-24] MEDS: enoxaparin 40 mg/0.4 mL Syringe SUBCUT (00:23)
[2020-09-24 00:34] LABS: Glucose Point of Care 98 mg/dL (70-110)
[2020-09-24 06:30] LABS: Glucose Point of Care 98 mg/dL (70-110)
--- NOTE | 2020-09-24 06:41 | PC.NURSE ---
SHIFT SUMMARY Patient had uneventful shift. No changes with neuro status throughout the night. 1000 mL urine output. Afebrile. NS at 50 mL/hour.
[2020-09-24 07:20] LABS: Basophils # 0.1 10^3/uL (0.0-0.1); Basophils % 0.9 %; Eosinophils # 0.2 10^3/uL (0.0-0.8); Eosinophils % 1.4 %; Hematocrit 35.9 % (42.0-52.0); Lymphocytes # 1.4 10^3/uL (0.8-4.8); Lymphocytes % 12.3 %; Mean Corpuscular HGB Conc 30.6 g/dL (30.0-36.0); Mean Corpuscular Hemoglobin 22.5 pg (28.0-34.0); Mean Corpuscular Volume 73.6 fL (80-94); Mean Platelet Volume 9.4 fL (7.4-10.4); Monocytes # 1.2 10^3/uL (0.2-0.9); Neutrophils # 7.09 10^3/uL (1.8-7.7); Nucleated Red Blood Cells % 0 %; Platelet Count 236 10^3/cmm (130-400); Red Blood Count 4.88 10^6/uL (4.1-5.3); Red Cell Distribution Width 17.6 % (12.1-15.1); White Blood Count 11.6 10^3/uL (4.0-10.0)
[2020-09-24 07:33] LABS: Estmated Average Glucose 103; Hemoglobin A1C 5.2 % (4.0-6.0)
--- NOTE | 2020-09-24 07:37 | PC.NURSE ---
Report received. Pt resting in bed. Follows all commands. AAO to self. Reoriented to time and place. Able to speak name and answer simple questions, moves all extremities and Rside remains slightly weaker than left. Denies any needs.
[2020-09-24 07:38] LABS: Alanine Aminotransferase 10 U/L (0-41); Albumin Level 2.7 g/dL (3.5-5.2); Alkaline Phosphatase 98 IU/L (40-130); Anion Gap 16.3 (5-19); Aspartate Amino Transferase 13 U/L (0-40); Blood Urea Nitrogen 8 mg/dL (8-23); Calcium 7.7 mg/dL (8.5-10.5); Carbon Dioxide 22 mmol/L (22-29); Chloride 104 mmol/L (98-107); Chol HDL Ratio 3.65 mg/dL (1.0-5.00); Cholesterol 124 mg/dL (0-200); Globulin 3.4 g/dL (1.3-4.6); Glucose 100 mg/dL (65-115); HDL Cholesterol 34 mg/dL (60-100); LDL Cholesterol Calculated 68 mg/dL (50-129); Osmolality Calculated 286 mOsm/kg (285-295); Potassium 3.3 mmol/L (3.5-5.1); Sodium 139 mmol/L (136-145); Total Bilirubin 0.3 mg/dL (0.15-1.2); Total Protein 6.1 g/dL (6.6-8.7); Triglycerides 110 mg/dL (0-150)
[2020-09-24 08:18] LABS: Neutrophils % 75.4 %
[2020-09-24 08:19] LABS: Slide Review Slide Review Perform
[2020-09-24] MEDS: aspirin 81 mg EC Tablet PO (08:46)
[2020-09-24] MEDS: clopidogrel 75 mg Tablet PO (08:46)
[2020-09-24 09:14] LABS: Glucose Point of Care 103 mg/dL (70-110)
--- NOTE | 2020-09-24 12:00 | MR_ITS ---
WS: [id number] MRI BRAIN WITHOUT CONTRAST HISTORY: right sided weakness. Suspect CVA COMPARISON: 09/22/2020 TECHNIQUE: Diffusion imaging, multiplanar T1, T2 and FLAIR imaging obtained. No evidence for acute infarct or hemorrhage. Lopez-white matter differentiation is normal. There is extensive chronic microvascular ischemic type changes throughout the white matter. Confluent signal abnormality surrounding the ventricle with numerous subcortical white matter lesions. Ventricles and extra-axial spaces are prominent on the basis of central and peripheral atrophy. No inferior displacement of cerebellar tonsils. The sella turcica and pituitary gland are unremarkabl e. Dural venous sinuses and [place] demonstrate no abnormality on this unenhanced studies. Paranasal sinuses: Clear. Mastoid air cells: Bilateral mild mastoid air cell disease. Calvarium and scalp: Intact. MR/MR head wo con* [id number] IMPRESSION: 1. No acute infarct or hemorrhage. 2. Severe chronic white matter disease with moderate atrophy.
--- NOTE | 2020-09-24 13:23 | PC.NURSE ---
PT taken to MRI via ambulance. Tolerated procedure well. Returned to room at 1245. Echo in progress at this time. Will monitor.
[2020-09-24 13:29] LABS: Glucose Point of Care 124 mg/dL (70-110)
[2020-09-24] MEDS: ondansetron 2 mg/ML SDV 2 mL 4 MG IVP ×3 (13:56→16:25)
--- NOTE | 2020-09-24 15:51 | PM.PN ---
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 Upon arrival to hospital patients initial laboratory workup showed a WBC of 16.8, hemoglobin of 13.4, hematocrit of 43.0 and a platelet count of 318. INR 1.11. Arterial blood gases showed a pH of 7.50, pCO2 of 25.9, PO2 of 65.1 and a bicarb of 20.2. Sodium 137, potassium 3.7, chloride 100, bicarb 22, BUN 12 and creatinine of 1.0. Lactic acid of 2.3. Alkaline phosphatase of 145. Troponin T delta of -10.44. CRP of 79.0. Prolactin of 6.25.Head CT without contrast did not show any evidence of acute intracranial hemorrhage.CT angio of head and neck did not show any evidence of large vessel stenosis or occlusion. Less than 50% stenosis in arteries. Metastatic disease in the chest and left superior clavicular fossa was seen.Patient was continued on aspirin 81 mg daily with addition Plavix 75 mg daily. Additionally was continued Lipitor 80 mg p.o. q.h.s. Upon arrival to Er patient was noted to have aphasia with right upper and lower extremity weakness. Initial NIH of 30 was noted. In addition he was found to have hypoglycemia with a glucose of 76. He was started on d5-> d10. 09/23/20 Patient gradually improved through out the day. He was able to tolerate oral intake. No evidence of aspiration. Noted improvement in right upper and lower extremity weakness.. Following commands. No fever, chills, nausea or vomiting. 09/24/20 Patient was back to baseline, sitting up in chair with out any distress or new complaints. Medications: Reviewed: Yes Vitals/I&O/Wt Last Vital Signs Temp 98.9 F 09/24/20 20:00 Pulse 93 09/24/20 20:00 Resp 19 H 09/24/20 20:00 BP 126/65 09/24/20 20:00 Pulse Ox 97 09/24/20 20:00 09/24/20 09/24/20 09/24/20 06:59 14:59 22:59 Intake Total 1040 / 1040 480 / 1520 Output Total 1000 / 1950 500 / 500 Balance -1000 / -710 1040 / 1040 -20 / 1020 Weight last 48 hrs Weight 93.984 kg Weight 92.578 kg Physical Exam Narrative: EXAM NARRATIVE: General : NAD , Alert and oriented x 3 HEENT : Grossly unremarkable. CVS: NSR Chest : CTABL Abd: Soft, NT, ND Ext : No edema Urinary Catheter Management^: Bullock: Cath Placed During This Visit: yes Reason for Continuing Indwelling Catheter: Accurate Measurement of Urinary Output in Critically Ill Patients Urinary Catheter Date of Insertion: 09/22/20 Data : 09/24/20 06:59 09/24/20 06:59 Micro: Microbiology 09/22/20 19:15 Urine Culture - Final Urine Catheterized 09/22/20 21:22 Blood Culture - Preliminary Blood NEGATIVE TO DATE 09/22/20 21:20 Blood Culture - Preliminary Blood NEGATIVE TO DATE A&P Assessment and plan (1) Hypoglycemia: Status: Acute (2) Acute CVA (cerebrovascular accident): Status: Acute (3) Right hemiparesis: Status: Acute (4) Ischemic cardiomyopathy: Status: Acute (5) Dyslipidemia: Status: Acute (6) Hypertension: Status: Acute (7) Type 2 diabetes mellitus: Status: Acute R-sided weakness/aphasia CVA ruled out possible TIA NIH 30 on arrival - continue Neuro-checks CT head / CTA H&N - no acute abnormality MRI - No acute infarct Aspirin 81 mg po daily Plavix 75 mg PO daily High-intensity statin - Lipitor 80 mg PO daily ECHO - pending PT/OT/ST Diabetes Mellitus Sliding Scale insulin Hypertension Resume home medication Dyslipidemia Lipitor 80 mg PO daily Metastatic colon cancer s/p r. Hemicolectomy on chemo No change to management as per outpatient Follow up with oncology once discharged. Disposition: Ok to transfer to [facility] Attestations Medical Necessity Statement*: Will continue hospitalization for tia work up. Time Spent in Patient Care: Greater than 35 minutes (>than 50% of time spent in counselling and/or direct pt care on unit). 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
--- NOTE | 2020-09-24 18:05 | USCV_ITS ---
Gulshan Braga Age: 70 Gender: M : 1950 Exam Date: 09/24/2020 13:06 Ordering Phys: Reyna Ruiz MD Technologist: RILEY PÉREZ Exam Location: [facility] – [place] Indication: CVA RT SIDE BP: 141 / 74 HR: 76 Rhythm: Sinus Technical Quality: TDS MEASUREMENTS (Male / Female) Normal Values 2D ECHO LV Diastolic Diameter PLAX 3.4 cm 4.2 - 5.9 / 3.9 - 5.3 cm LV Systolic Diameter PLAX 2.9 cm LV Chamber Size 3.8 cm IVS Diastolic Thickness 1.7 cm 0.6 - 1.0 / 0.6 - 0.9 cm IVS Systolic Thickness 1.9 cm LVPW Diastolic Thickness 1.7 cm 0.6 - 1.0 / 0.6 - 0.9 cm LVPW Systolic Thickness 1.9 cm RV Chamber Size 3.1 cm LVOT Diameter 2.1 cm LV Ejection Fraction 2D Teich 33.1 % LV Ejection Fraction MOD 2C 5.7 % LV Ejection Fraction 2C AL 6.2 % LA Diameter 3.6 cm LA Width 3.2 cm LA Height 3.0 cm RA Width 3.5 cm RA Height 4.0 cm Aorta at Sinotubular Diameter 3.2 cm M-MODE LV Diastolic Diameter MM 5.2 cm 4.2 - 5.9 / 3.9 - 5.3 cm LV Systolic Diameter MM 3.3 cm LV Ejection Fraction MM Teich 64.3 % IVS Diastolic Thickness MM 1.3 cm 0.6 - 1.0 / 0.6 - 0.9 cm IVS Systolic Thickness MM 1.7 cm LVPW Diastolic Thickness MM 1.4 cm 0.6 - 1.0 / 0.6 - 0.9 cm LVPW Systolic Thickness MM 1.6 cm Aortic Annulus Diameter 3.8 cm LA Ao Ratio MM 1.1 MV E Point Septal Separation 0.8 cm DOPPLER AV Peak Velocity 114.0 cm/s LVOT Peak Velocity 95.0 cm/s AV Area Cont Eq vti 3.2 cm squared AV Area Cont Eq pk 2.9 cm squared MV Area PHT 6.0 cm squared Mitral E to A Ratio 1.1 MV E' Velocity 60.8 cm/s Mitral E to MV E' Ratio 9.5 Mitral E to LV E' Lateral Ratio 6.7 Mitral E to LV E' Septal Ratio 16.1 TR Peak Velocity 218.9 cm/s TR Peak Gradient 19.2 mmHg TR Mean Velocity 186.8 cm/s TR Mean Gradient 14.4 mmHg TR Velocity Time Integral 55.3 cm TV Peak E Velocity 86.0 cm/s Right Atrial Pressure 3.0 mmHg Pulmonary Artery Systolic Pressu 22.2 mmHg PV Peak Velocity 59.0 cm/s RV Acceleration Time 0.1 s RV Ejection Time 0.3 s RV AcT/ET 0.3 FINDINGS Left Ventricle Left ventricle is not well visualized probably appear to be of normal size and probably normal ejection fraction around 55%. Wall motion abnormality cannot be commented upon.Grade I/IV diastolic dysfunction (abnormal relaxation filling pattern), normal to mildly elevated filling pressures. Right Ventricle The right ventricle is normal in size and function. Right Atrium The right atrium is normal in size. Left Atrium The left atrium is normal in size. Mitral Valve Mildly thickened mitral valve. No mitral valve stenosis. No mitral valve regurgitation. Aortic Valve Moderate aortic valve calcification. No aortic valve stenosis. No aortic valve regurgitation. Tricuspid Valve Structurally normal tricuspid valve without significant stenosis or regurgitation. Pulmonary artery systolic pressure is normal. Pulmonic Valve Structurally normal pulmonic valve without significant stenosis. There is no pulmonic regurgitation. Pericardium Normal pericardium without effusion. Aorta Normal ascending aorta dimension. CONCLUSIONS 1-Left ventricle is not well visualized probably appear to be of normal size and probably normal ejection fraction around 55%. Wall motion abnormality cannot be commented upon.Grade I/IV diastolic dysfunction (abnormal relaxation filling pattern), normal to mildly elevated filling pressures. 2-Mildly thickened mitral valve. No mitral valve stenosis. No mitral valve regurgitation. 3-Moderate aortic valve calcification. No aortic valve stenosis. No aortic valve regurgitation. 4-There is no pericardial effusion. 5-No significant change since the prior echocardiogram study of 02/11/2018. Gaviota Jin MD (Electronically Signed) Final Date: 24 September 2020 20:21 S
[2020-09-24 18:17] LABS: Glucose Point of Care 109 mg/dL (70-110)
--- NOTE | 2020-09-24 18:29 | PC.NURSE ---
Pt resting in bed. Vomitedx2. Zofran given per orders. Pt fed self after tray setup. No issues noted. Makes needs known, diarrhea x 2. Will monitor.
[2020-09-24] MEDS: atorvastatin 40 mg Tablet 80 MG PO (21:00)
[2020-09-25] VITALS (17 sets, daily range): BP systolic 110–156; BP diastolic 56–95; PULSE 74–85; RESP 16; TEMP 37–37.1; O2SAT 94–99
[2020-09-25 07:16] LABS: Glucose Point of Care 121 mg/dL (70-110)
--- NOTE | 2020-09-25 07:20 | PC.NURSE ---
Report received. Pt resting in bed. VSS. Lung sounds CTA. No issues noted. Bullock cath draining freely to BSD. Will monitor.
[2020-09-25] MEDS: aspirin 81 mg EC Tablet PO (08:26)
[2020-09-25] MEDS: clopidogrel 75 mg Tablet PO (08:26)
--- NOTE | 2020-09-25 10:15 | PC.CHAP ---
Pastoral Care Encounter/Spiritual Assessment Type of Contact [] Declined tire spotter visit [] Patient/Family/Request visit [] Outpatient visit [] Follow-up visit [] Physician referral [] Code/Alert [x] Routine visit [] Staff referral [] Actively dying [] Patient sleeping [] Family support [] [] Out of room [] Palliative care [] [] Receiving care in room [] Pre-surgical visit [] Trauma [] Long length of stay [x] ICU visit [] Other: Relational/Emotional Strength [] Patient feels connected with others/family/visitors/staff [] Distress [] Loneliness/isolation [] Abandonment Spirituality of Patient [] Person of Estefani [] Attends Hinduism of their Estefani [] Believes in Prayer [] Reads Bible or Baptist materials [] There are Spiritual issues to be addressed Fuel Buyer Interventions [x] Prayer [] Active listening [] Non-anxious presence [] Spiritual/emotional support [] Crisis/trauma care [] Spiritual counseling [] Bereavement support [] Provided bereavement packet [] Provided Bible/devotional materials [] Provided toy/stuffed animal, coloring book to patient or family member [] Provided Communion [] Anointing/[place] [] Salvation [x] Completed spiritual assessment [] Other: Impact on Illness or Injury [] Angry [] Fearful [] Anxious [] Often cries [] Exhaustion [] Unable to work [] Unable to attend voodoo [] Unable to walk/stand [] Unable to read [] Unable to drive [] Unable to eat/drink [] Unable to sleep [] Unable to be with family [] Patient intubated [] Other: Summary patient suffered stroke on left side of body.. no lingering sign with the exception of the left foot being a little weak... exercise will strengthen it and he is looking to be discharged today. Time spent with patient 10 min
--- NOTE | 2020-09-25 10:28 | PC.SOCIAL ---
IMM update IMM updated with patient. He verbalized an understanding. Copy provided, copy placed in chart, dated, timed,and initialed.
[2020-09-25 11:11] LABS: Glucose Point of Care 117 mg/dL (70-110)
--- NOTE | 2020-09-25 13:50 | P.DS_ITS ---
Discharge Providers Date of Admission: 09/22/20 22:28 Date of Discharge: September 25, 2020 Attending Provider at Admission: Gaviota Hickey MD Attending Provider at Discharge: Reyna Ruiz Primary Care Provider: Janina Clinton DO Diagnoses at Discharge Discharge Diagnosis (1) Hypoglycemia: Status: Acute (2) Acute CVA (cerebrovascular accident): Status: Acute (3) Right hemiparesis: Status: Acute (4) Ischemic cardiomyopathy: Status: Acute (5) Dyslipidemia: Status: Acute (6) Hypertension: Status: Acute (7) Type 2 diabetes mellitus: Status: Acute Reason for Visit Reason for Visit: [facility] Hospital Course Hospital Course 70 year old with past medical history of coronary artery disease s/p CABG x4, chronic systolic heart failure with a last known EF of 48%, hypertension, dyslipidemia, obstructive sleep apnea, diabetes mellitus, 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 Upon arrival to hospital patients initial laboratory workup showed a WBC of 16.8, hemoglobin of 13.4, hematocrit of 43.0 and a platelet count of 318. INR 1.11. Arterial blood gases showed a pH of 7.50, pCO2 of 25.9, PO2 of 65.1 and a bicarb of 20.2. Sodium 137, potassium 3.7, chloride 100, bicarb 22, BUN 12 and creatinine of 1.0. Lactic acid of 2.3. Alkaline phosphatase of 145. Troponin T delta of -10.44. CRP of 79.0. Prolactin of 6.25.Head CT without contrast did not show any evidence of acute intracranial hemorrhage.CT angio of head and neck did not show any evidence of large vessel stenosis or occlusion. Less than 50% stenosis in arteries. Metastatic disease in the chest and left superior clavicular fossa was seen.Patient was continued on aspirin 81 mg daily with addition Plavix 75 mg daily. Additionally was continued Lipitor 80 mg p.o. q.h.s. Upon arrival to Er patient was noted to have aphasia with right upper and lower extremity weakness. Initial NIH of 30 was noted. In addition he was found to have hypoglycemia with a glucose of 76. He was started on d5-> d10. Once he was seen by speech therapy and evaluated his IVF were changed to NS. Patient gradually improved throughout initial day of admission. He was able to tolerate oral intake. No evidence of aspiration. Noted to have resolution of presenting symptoms.Additional neurological work up included an echocardiogram which showed EF had improved from previous 48% to 55% with out any evidence of valvular heart disease. An MRI of brain w/o contrast was also performed which did not show an acute stroke. LDL was noted to be 68. Suspected TIA. He was continued to DAPT. Plavix to continue to 30 days then revert to mono therapy with aspirin. Lipitor was continued at 40 mg PO daily. Patient was back to baseline, sitting up in chair with out any distress or new complaints. He was seen by PT. Ambulating up to 90ft with minimal assist. Physical Exam Narrative: EXAM NARRATIVE: General : NAD , Alert and oriented x 3, very hard of hearing HEENT : Grossly unremarkable. CVS: NSR Chest : CTABL Abd: Soft, NT, ND Ext : No edema Neuro: CN 2-12 intact, no speech abnormality, slightly weak in RLE>LLE however pt noted this to be chronic. Urinary Catheter Management^: Bullock: Cath Placed During This Visit: yes, but has since been removed by the nurse Reason for Continuing Indwelling Catheter: Decision to DC Catheter Urinary Catheter Date of Insertion: 09/22/20 Date Urinary Catheter Removed: 09/25/20 Time Urinary Catheter Discontinued: 10:12 Discharge Data Data Completed and Pending: Completed Studies During Hospitalization Category Date Time Status CT angio headneck * 84113/00635 Urge nt Cat Scan 09/22/20 22:[address] head wo con* 7 3200 Stat Cat Scan 09/22/20 18:22 Completed XR chest 1V love ble 02076 Urgent Exams 09/22/20 18:29 Completed MR head wo con* 7 0551 Routine MRI 09/24/20 12:00 Completed CV echo complete* [id number] Routine Ultrasound 09/24/20 18:05 Completed Pending at discharge Category Date Time Status Blood Culture Sta t Lab 09/22/20 21:22 Results Labs from last 24 hours 09/25/20 09/25/20 09/24/20 10:47 07:09 18:14 POC Glucose 117 H 121 H 109 Vitals: Last Vital Signs Temp 98.7 F 09/25/20 08:00 Pulse 84 09/25/20 13:00 Resp 19 H 09/24/20 20:00 BP 147/77 06/22/21 13:00 Pulse Ox 98 09/25/20 13:00 Discharge Plan Discharge Patient Disposition: Home Condition: Stable Prescriptions: New atorvastatin 40 mg Tablet 40 mg PO BEDTIME Qty: 30 RF: 0 clopidogrel 75 mg Tablet 75 mg PO DAILY Qty: 30 RF: 0 Continued cholecalciferol (vitamin D3) 50 mcg (2,000 unit) capsule 50 mcg PO DAILY RF: 0 aspirin 81 mg tablet,delayed release (DR/EC) 81 mg PO DAILY Qty: 30 RF: 0 magnesium oxide 400 mg magnesium capsule 400 mg PO DAILY Qty: 30 RF: 0 metoprolol succinate 25 mg tablet extended release 24 hr 25 mg PO DAILY Qty: 30 RF: 0 ondansetron 4 mg tablet,disintegrating 4 mg PO Q6H PRN (Reason: nausea and vomiting) Qty: 14 RF: 0 glipizide 5 mg tablet 5 mg PO BID RF: 0 Discharge Orders: Discharge Order (Routine); Ordered 09/25/20 Ordered By: Reyna Ruiz Referrals: Zuri Becker MD [Physician] - 2 weeks Discharge Diet: Cardiac and Diabetic Discharge Activity: Increase activity as tolerated Patient Instructions: Atorvastatin (By mouth), Clopidogrel (By mouth), Self Care Measures After a Stroke (DC), Opioid Safety Activity Restrictions/Additional Instructions: return to ER if any recurrance of symptoms. Continue plavix for 30 days then stop. Follow up with your pcp and oncology as directed Discharge Attestations Time Spent in Discharge Care*: greater than 30 min Specific Discharge Activities: educating patient, educating and/or supporting family/caregiver (attempted to contact roberth Arellano, however unsuccessful ), discussing with telephonic case manager/social workers/dc planners, documenting/other paperwork and evaluating patient/reviewing data Status at Discharge: Cognitive status at discharge: cognitively intact , Behavioral status at discharge: cooperative , Functional status at discharge: other assisted ambulation Overall status at discharge: patient is progressing back to baseline Quality Metrics Clinical Quality Measures During this hospital stay, did patient experience: None Coding Level of Care Code Acute Chg FW DC note Diagnoses Hypoglycemia E16.2 Acute CVA (cerebrovascular accident) I63.9 Right hemiparesis G81.91 Ischemic cardiomyopathy I25.5 Dyslipidemia E78.5 Hypertension I10 Type 2 diabetes mellitus E11.9
--- NOTE | 2020-09-25 16:04 | PC.NURSE ---
Pt was able to get up to BSC with minimum assist from this nurse. Pt had medium loose bowel movement and then was able to stand with standby assist to use urinal and urinate 200ml urine. Tolerated well. Pt assisted back to bed. PIV removed. Awaiting return of daughter for dc.
--- NOTE | 2020-09-25 16:50 | PC.NURSE ---
Daughter here for dc. Pt dressing himself with minimal difficulty.
== END 2020-09-25 17:00 | disposition home or self-care (01) | DRG 69 ==
LOC: ER 22:29 → ICU 23:00
PROVIDERS: Admitting Provider Internal Medicine; Emergency Provider Emergency Medicine; PCP Family Medicine; Visit Provider Hospitalist
DX: G45.9 Transient cerebral ischemic attack, unspecified (principal); G93.41 Metabolic encephalopathy; C18.7 Malignant neoplasm of sigmoid colon; C78.7 Secondary malignant neoplasm of liver and intrahepatic bile duct; C78.02 Secondary malignant neoplasm of left lung; I50.22 Chronic systolic (congestive) heart failure; Z90.49 Acquired absence of other specified parts of digestive tract; Z79.899 Other long term (current) drug therapy; Z66 Do not resuscitate; I25.10 Atherosclerotic heart disease of native coronary artery without angina pectoris; Z95.1 Presence of aortocoronary bypass graft; I11.0 Hypertensive heart disease with heart failure; E78.5 Hyperlipidemia, unspecified; E11.649 Type 2 diabetes mellitus with hypoglycemia without coma; I25.5 Ischemic cardiomyopathy; G47.33 Obstructive sleep apnea (adult) (pediatric); Z87.891 Personal history of nicotine dependence; Z79.82 Long term (current) use of aspirin; Z79.84 Long term (current) use of oral hypoglycemic drugs; Z95.828 Presence of other vascular implants and grafts
CPT/HCPCS: 36415; 36416; 36600; 70450; 70496; 70498; 70551; 71045; 80053; 80061; 80307; 81001; 82550; 82803; 82962; 83036; 83605; 84146; 84484; 85025; 85610; 85730; 86140; 87040; 87086; 87493; 92507; 92523; 92526; 92610; 93005; 93306; 96360; 96372; 97110; 97162; 97165; 97530; 99285; J1650; J2310; J2405; J7030; Q9967

== ENCOUNTER 2020-09-27 08:07 | Outpatient (RCR) | payer MEDICARE, OTHER, SELFPAY ==
[2020-09-26] MEDS: sodium chloride 0.9% 500 ML 999 ML IV (15:05)
[2020-09-26 15:37] LABS: Basophils # 0.2 10^3/uL (0.0-0.1); Eosinophils # 0.3 10^3/uL (0.0-0.8); Eosinophils % 1.8 %; Hematocrit 35.9 % (42.0-52.0); Lymphocytes % 12.6 %; Mean Corpuscular HGB Conc 30.6 g/dL (30.0-36.0); Mean Corpuscular Hemoglobin 22.5 pg (28.0-34.0); Mean Corpuscular Volume 73.4 fL (80-94); Monocytes # 1.1 10^3/uL (0.2-0.9); Monocytes % 6.9 %; Neutrophils # 10.83 10^3/uL (1.8-7.7); Neutrophils % 69.7 %; Nucleated Red Blood Cells % 0 %; Platelet Count 211 10^3/cmm (130-400); Red Blood Count 4.89 10^6/uL (4.1-5.3); Red Cell Distribution Width 17.7 % (12.1-15.1); White Blood Count 15.6 10^3/uL (4.0-10.0)
[2020-09-26 16:03] LABS: Slide Review Slide Review Perform
[2020-09-26 16:21] LABS: Alanine Aminotransferase 11 U/L (0-41); Albumin Level 3.2 g/dL (3.5-5.2); Alkaline Phosphatase 106 IU/L (40-130); Anion Gap 12.9 (5-19); Aspartate Amino Transferase 16 U/L (0-40); Blood Urea Nitrogen 13 mg/dL (8-23); Calcium 8.1 mg/dL (8.5-10.5); Carbon Dioxide 25 mmol/L (22-29); Chloride 104 mmol/L (98-107); Globulin 3.2 g/dL (1.3-4.6); Glucose 137 mg/dL (65-115); Osmolality Calculated 290 mOsm/kg (285-295); Sodium 139 mmol/L (136-145); Total Bilirubin 0.3 mg/dL (0.15-1.2); Total Protein 6.4 g/dL (6.6-8.7)
[2020-09-26 16:26] LABS: Potassium 2.9 mmol/L (3.5-5.1)
[2020-09-26 19:46] LABS: Carcinoembryonic Antigen 47.4 ng/mL (0.0-4.7)
[2020-09-27 16:07] LABS: Magnesium 1.8 mg/dL (1.7-2.3)
--- NOTE | 2020-09-27 18:02 | ONC FU_ITS ---
Dr. Castillo Patient Follow-Up Note Patient: Gulshan Braga Unit #: [id number]: [id number] Dicatated By: Xiang Castillo M.D.Date of Visit:Sep 26, 2020 Onc Med Follow-up/Prog Note Chief Complaint: Colon cancer. 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 He had presented with influenza pneumonia and non-ST elevation [place]. During anticoagulation in preparation for coronary artery bypass graft surgery he develop significant rectal bleeding. A CT of the abdomen and pelvis on 05/11/2014 showed a mass in the distal sigmoid colon with soft tissue stranding, but no evidence of disease in the liver. There were 2 discrete nodules in the left lower lobe up to 1.1 cm with a patchy foci in the lingula and the left lower lobe. He required a cardiac bypass graft surgery on 05/19/2014. Preoperative staging PET/CT was reportedly performed, but results were not available. He then underwent left hemicolectomy on 07/03/2014. His surgical pathology revealed 6 x 5 cm low-grade adenocarcinoma, invading through muscularis propria into the subserosal adipose tissue. Two tumor deposits were present on the pericolonic adipose tissue. None of the 24 lymph nodes harvested were involved with metastatic disease. No lymphovascular or perineural invasion was identified. Luminal obstruction of more than 70% was present. Margins were negative. Thus, his disease was pathologic stage at least IIIB (pT3, N1c, MX). Mismatch repair analysis was normal, without defect identified. The patient had relocated to [place] from [place], to be closer to his daughter. He moved to the [facility] in August 2014 and established care with the [facility] in [place]. His studio engineer is Dr. Lomas. He was first seen by Dr. Vivas on 03/27/2015. His case was presented on the tumor board, consensus was to offer an adjuvant chemotherapy. In interim he had a CT of the chest/abdomen/pelvis on 04/10/2014 which showed increase in the two left lung nodules to 1.8 and 1.69 cm, concerning for metastatic disease. PET/CT on 05/05/2015 confirmed FDG positive two nodules in the left lung. A CT-guided biopsy on 06/11/2015 showed suspicious cells for malignancy, with only scant specimen available. Thus his disease was stage IV (M1b). Palliative FOLFOX and Avastin was recommended and was planned, but the patient decided against palliative chemotherapy. In the meantime, K-kylah mutation was performed on the original biopsy, and mutations were not detected. He was then followed on observation/symptomatic management. Restaging CT scans of the chest, abdomen, and pelvis on 07/24/2016 showed increasing size left pulmonary nodules/mass with the largest mass of the left lung base measuring 3.1 x 2.6 cm. Overall, four nodules were present with continued slow progression since April 2015 study. I had seen him for a follow-up visit in October 2016. He was still not interested in attempting any chemotherapy treatment, and he then failed to return for further follow-up. On 03/15/2018 he presented to the emergency room with back pain. He had evaluation at that time with lumbar spine CT, which showed no acute findings. He was diagnosed with acute left-sided sciatica and treated symptomatically. He returned to the emergency room on 03/28/2018. His renal CT at that time showed a partially obstructing 4 x 5 mm ureteral calculus at the left ureteropelvic junction. Other findings included prominent portal and celiac lymph nodes, a mass adjacent to the caudate lobe of the liver measuring 2.3 cm, and a low-attenuation lesion in the hepatic dome which appeared suspicious for a metastatic lesion. Also noted were enlarging pulmonary masses in the left lower lobe. I had seen him for a follow-up visit on 04/13/2018. At that point I did request further evaluation with a next generation sequencing study. It showed no actionable mutations. The tumor was noted to be MSI stable. He continued observation/expectant management for the colon cancer. However, he was still having problems related to the kidney stone. He had continued follow-up with Dr. Mckeon and on 06/14/2018 he underwent extracorporeal shockwave lithotripsy for the left distal ureteral stone. He required temporary ureteral stent placement. He had no complications with the procedure, and the stent was later removed. At his follow-up visit on 04/29/2019 his CEA level had increased to 21.7 ng/mL compared to 8.9 ng/mL in April 2018. However, he was still not interested in considering any treatment. He was then seen for a follow-up visit again on 10/27/2019. At that point his CEA had further increased to 41.4 ng/mL. He then had restaging CT scans of the chest, abdomen, and pelvis on 11/07/2019. Those studies showed significant progression of metastatic disease with increasing pulmonary nodules in both lungs, the largest in the left upper lobe measuring 3.5 x 2.9 cm and in the left lower lobe measuring 4.6 x 4.9 cm. There was progression of metastatic lesions in the right hepatic lobe, the largest measuring 4.3 x 3.4 cm in the dome of the liver and 4.8 cm in the right hepatic lobe laterally. Also noted were multiple enlarged partially calcified lymph nodes in the love hepatis and celiac axis, bulky enlarged retrocrural and gastroesophageal lymph nodes, and bulky periaortic and retroperitoneal lymph nodes, all new from previous studies. With those findings he did opt to begin a trial of therapy with panitumumab as a single agent. He began cycle 1 on 11/17/2019. His further treatment was then put on hold due to a severe skin eruption, which developed despite having been given dexamethasone prophylaxis. During follow-up his rash slowly improved, and during that time there was a significant decline in his CEA level. As such, he opted to continue treatment, and he restarted panitumumab on 01/12/2020 with the dosage reduced to 2 mg/kg by IV infusion. He tolerated it with acceptable toxicity and he continued treatment at 2-week intervals. As of 02/07/2020 his CEA level had decreased to 18.9 ng/mL, and it then stabilized. Restaging CT scans on 04/13/2020 showed multiple metastatic pulmonary nodules throughout both lungs, with the size and number relatively unchanged compared to the December 2019 study. Heterogeneous and partially calcified metastatic lesions of both hepatic lobes also appeared stable, as did his bulky upper abdominal lymphadenopathy. Previously described tiny left pericolic gutter metastatic lesions appear to have resolved. A lytic lesion in the right iliac wing was noted to be stable. With those findings, he continued the panitumumab monotherapy at 2-week intervals. However, following his treatment on 05/15/2020 the panitumumab was put on hold due to worsening skin eruption and other side effects. He had continued with cycle 14 of panitumumab on 07/03/2020. However, at that point his CEA level had increased significantly, to 30.4 ng/mL, and I then opted to stop that treatment. His other medical illnesses include hypertension, hyperlipidemia, type II diabetes, and coronary artery disease. He has a history of smoking a pack and a half of cigarettes daily for 30 years, but he quit smoking more than 10 years ago. INTERIM HISTORY: On 09/04/2020 he began cycle 1 of 2nd line treatment with FOLFIRI chemotherapy in combination with Avastin. His baseline CEA level was 52.8 ng/mL. He reported increased fatigue and somnolence following that treatment. He did not experience any other toxicity acutely. At his follow-up visit on 09/18/2020 he continued to report severe fatigue and he opted to delay any further chemotherapy. He was not having diarrhea. Four days later he was taken to the emergency room after his daughter found him unresponsive at home. When she was able to arouse him she thought he was not moving his right arm and leg, and on that basis it was suspected he might be having an acute stroke. However, in the emergency room he was found to be significantly hypoglycemic. He was admitted to the hospital. His brain MRI showed no acute infarct or hemorrhage and no evidence of metastatic disease. He was discharged home yesterday. He is seen now for a follow-up visit. He has still been extremely weak, though not particularly on the right side. In fact, as daughter has noted that he now has a tendency to drag his left foot. He has very limited activity. His ECOG score is 3. He says he is eating, but he also complains now of having nonstop diarrhea. I am not certain exactly when that started. He does not have fever or night sweats. He has not had mouth sores. He has cough which comes and goes. He has shortness of breath. He does not complain of chest pain. He has been having nausea, that is better today. He is having some pain in the lower abdominal area. He says his bladder function could be better. He has had some pain on his right side. He does not complain of headache. He is dizzy at times. He has no numbness/paresthesia or other neuropathy symptoms. Medications: Aspirin 1 Tablet (of 81 mg) Tablet, chewable Oral daily, Atorvastatin Calcium (40 mg) Tablet Oral daily, Clopidogrel Bisulfate (75 mg) Tablet Oral daily, Magnesium (400 mg) Tablet Oral daily, Metoprolol Tartrate 1 Tablet (of 25 mg) Oral b.i.d., Ondansetron 1 Tablet (of 4 mg) Tablet Dispersable Oral q 4 hours PRN, Vitamin D3 1 (2000 Units) Tablet Oral daily Allergies: Penicillin V Potassium Vital Signs: Performed on Sep 26, 2020 14:42 Height - 67.00 in Weight - 200.8 lbs (HIGH) BSA - 2.03 sq.m BMI - 31.45 (HIGH) Temperature - 98 F (LOW) Pulse - 85 /min Respiration - 18 /min BP - 117/71 mm(hg) O2 Sat - 97 % Pain - 8 Fatigue - 8 Physical Examination: Constitutional - He appears generally weak, Eyes - Sclerae nonicteric. Conjunctivae clear, ENMT - No lesions noted in the oral cavity, Hematologic/Lymphatic - No cervical, clavicular, or axillary adenopathy, Respiratory - Lungs sound clear, Cardiovascular - Heart rhythm is regular. There is a II/ systolic murmur. There is no gallop or rub noted, Abdomen - Mildly distended. Liver and spleen are not enlarged. There is no abdominal mass or ascites noted and there is no inguinal adenopathy, Extremities - No edema, Neurologic - He does not appear to have any residual focal neurologic deficit. Lab/Imaging: Test performed on Sep 18, 2020 09:58 Sodium 135 mmol/L Potassium 4.3 mmol/L Chloride 99 mmol/L CO2 20 mmol/L Anion Gap 20.3 BUN 19 mg/dL Creatinine 1.3 mg/dL Cr Clearance (Est) 71.3600 mL/min Glucose 126 mg/dL Osmolality - Calculated 284 mOsm/kg Calcium 8.8 mg/dL Protein, Total 7.8 g/dL Albumin 3.7 g/dL Globulin 4.1 g/dL Bilirubin, Total 0.5 mg/dL ALT (SGPT) 9 U/L AST (SGOT) 12 U/L Alkaline Phosphatase 94 IU/L WBC 3.5 10 3/uL RBC 5.30 10 6/uL HGB 12.1 g/dL HCT 38.9 % MCV 73.4 fL MCH 22.8 pg MCHC 31.1 g/dL RDW 17.0 % Platelet Count 261 10 3/cmm MPV 9.7 fL Neutrophils 1.56 10 3/uL Lymphocytes 0.7 10 3/uL Monocytes 1.1 10 3/uL Eosinophils 0.1 10 3/uL Basophils 0.1 10 3/uL Neutrophil % 44.8 % Lymphocyte % 19.3 % Monocyte % 30.7 % Eosinophil % 3.2 % Basophils % 1.4 % NRBC % 0 % CBC Slide Review Slide Review Perform SLIDE REVIEW AGREES WITH AUTOMATED RESULTS. Test performed on Sep 10, 2020 08:15 Ua Color Yellow Ua Appearance Clear Ua Glucose Norm Ua Bilirubin Neg Ua Ketones Negative Ua Specific [place] 1.020 Ua Blood Neg Ua pH 5 Ua Protein Neg Ua Nitrites Negative Ua Leukocyte Esterase Negative Problem List: 1. Low-grade adenocarcinoma of the distal sigmoid colon, stage IV (T3, N1c, M1b). He underwent left hemicolectomy on 07/03/2014. During subsequent follow-up he had enlarging, FDG avid pulmonary nodules, consistent with metastatic disease. He initially opted to have just symptomatic/supportive care. 2. He had non-ST elevation myocardial infarction at initial presentation, and he did require coronary artery bypass surgery prior to the colon resection. 3. Hypertension. 4. Hyperlipidemia. 5. Type II diabetes. 6. Nephrolithiasis. He underwent extracorporeal shockwave lithotripsy for a left distal ureteral stone in June 2018. Problems Addressed with this Encounter and Plan: 1. Patient with low-grade adenocarcinoma of the sigmoid colon, stage IV, with multiple pulmonary metastases and with metastatic involvement in the liver and upper abdominal lymph nodes. He began panitumumab monotherapy in November 2019. During treatment there was a significant decline in his CEA level but with his restaging CT scans showing stable findings. Following his treatment on 05/15/2020 the panitumumab was put on hold due to worsening skin eruption and declining performance status. At that point his CEA level was stable at 13.0 ng/mL. As of his follow-up visit on 07/03/2020 there was a significant increase in the CEA level to 30.4 ng/mL. At that point I opted to stop any further treatment with panitumumab. He ultimately agreed to a trial of second line therapy with FOLFIRI chemotherapy in combination with Avastin. He began cycle 1 on 09/04/2020. His baseline CEA level was 52.8 ng/mL. He has had worsening fatigue/somnolence following that treatment, and as of his follow-up visit on 09/18/2020 he opted to delay any further chemotherapy. At that point he was not having diarrhea or other obvious chemotherapy related toxicities. However, 4 days later he was admitted to the hospital after he became severely hypoglycemic at home. There was some suspicion that also he may have had an acute stroke, but that appears to be less likely. At this point he remains very weak generally. He has developed diarrhea, which is likely to be chemotherapy related. He has had a significant decline in his performance status. I will recheck his laboratory studies today to include CBC, comprehensive metabolic profile, and CEA level. He will be given IV hydration today and his daughters given instructions on managing the diarrhea. As he has had a significant decline in his general condition, he has now become homebound and he is in need of home health services, including nursing care for clinical assessments and monitoring of vital signs and neurologic parameters. He may require additional IV hydration at home. In addition, I will put in a request for home physical therapy. I will tentatively plan a follow-up visit in 2 weeks. 2. He has been mildly anemic. His previous studies were suggestive of iron deficiency, but this has not been a consistent finding on follow-up studies. Thus far his hemoglobin/hematocrit levels have remained stable, but that will require ongoing monitoring. Signed By: Xiang Castillo M.D. <<Signature on File>>
== END 2020-10-03 23:59 | disposition home or self-care (01) ==
LOC: ONCMED 08:07
PROVIDERS: PCP Family Medicine; Visit Provider Internal Medicine Medical Oncology
DX: C18.7 Malignant neoplasm of sigmoid colon (principal); C78.01 Secondary malignant neoplasm of right lung; C78.02 Secondary malignant neoplasm of left lung; C77.2 Secondary and unspecified malignant neoplasm of intra-abdominal lymph nodes; C78.7 Secondary malignant neoplasm of liver and intrahepatic bile duct; E10.59 Type 1 diabetes mellitus with other circulatory complications; I21.9 Acute myocardial infarction, unspecified; I25.10 Atherosclerotic heart disease of native coronary artery without angina pectoris; I10 Essential (primary) hypertension; E78.5 Hyperlipidemia, unspecified; N20.0 Calculus of kidney; Z79.899 Other long term (current) drug therapy
CPT/HCPCS: 80053; 82378; 83735; 85025; 96360; 96365; 96366; 99214; J3480; J7030; J7040

== ENCOUNTER 2020-11-20 13:05 | Outpatient (CLI) | payer MEDICARE, OTHER, SELFPAY ==
[2020-11-20] MEDS: sodium chloride 0.9% 500 ML 999 ML IV (14:00)
[2020-11-20 14:53] LABS: Alanine Aminotransferase 6 U/L (0-41); Albumin Level 3.6 g/dL (3.5-5.2); Alkaline Phosphatase 82 IU/L (40-130); Anion Gap 15.4 (5-19); Aspartate Amino Transferase 14 U/L (0-40); Blood Urea Nitrogen 18 mg/dL (8-23); Calcium 8.7 mg/dL (8.5-10.5); Carbon Dioxide 24 mmol/L (22-29); Chloride 100 mmol/L (98-107); Globulin 3.6 g/dL (1.3-4.6); Glucose 113 mg/dL (65-115); Osmolality Calculated 283 mOsm/kg (285-295); Potassium 4.4 mmol/L (3.5-5.1); Sodium 135 mmol/L (136-145); Total Bilirubin 0.3 mg/dL (0.15-1.2); Total Protein 7.2 g/dL (6.6-8.7)
[2020-11-20 15:06] LABS: Basophils # 0.1 10^3/uL (0.0-0.1); Basophils % 1.3 %; Eosinophils # 0.3 10^3/uL (0.0-0.8); Eosinophils % 3.6 %; Hemoglobin 11.6 g/dL (11.7-16.6); Lymphocytes # 1.6 10^3/uL (0.8-4.8); Lymphocytes % 18.4 %; Mean Corpuscular HGB Conc 30.5 g/dL (30.0-36.0); Mean Corpuscular Hemoglobin 23.4 pg (28.0-34.0); Mean Corpuscular Volume 76.6 fl (80-94); Mean Platelet Volume 10.8 fL (7.4-10.4); Monocytes # 0.9 10^3/uL (0.2-0.9); Neutrophils # 5.71 10^3/uL (1.8-7.7); Neutrophils % 66.5 %; Nucleated Red Blood Cells % 0 %; Platelet Count 220 10^3/cmm (130-400); Red Blood Count 4.96 10^6/uL (4.1-5.3); Red Cell Distribution Width 18.7 % (12.1-15.1); White Blood Count 8.6 10^3/uL (4.0-10.0)
[2020-11-20 15:56] LABS: Iron 26 ug/dL (59-158); Percent Saturation 13.3 % (20-50); Total Iron Binding Capacity 195 mcg/dl; Unsaturated Iron Binding 169 ug/dL (112-347)
[2020-11-20 22:08] LABS: Carcinoembryonic Antigen 65.1 ng/mL (0.0-4.7)
[2020-11-20 22:17] LABS: Estmated Average Glucose 103; Hemoglobin A1C 5.2 % (4.0-6.0)
--- NOTE | 2020-11-24 10:12 | ONC FU_ITS ---
Dr. Castillo Patient Follow-Up Note Patient: Gulshan Braga Unit #: [id number]: 1950 Dicatated By: Xiang Castillo M.D.Date of Visit:Nov 20, 2020 Onc Med Follow-up/Prog Note Chief Complaint: Colon cancer. 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 He had presented with influenza pneumonia and non-ST elevation CT. During anticoagulation in preparation for coronary artery bypass graft surgery he develop significant rectal bleeding. A CT of the abdomen and pelvis on 05/11/2014 showed a mass in the distal sigmoid colon with soft tissue stranding, but no evidence of disease in the liver. There were 2 discrete nodules in the left lower lobe up to 1.1 cm with a patchy foci in the lingula and the left lower lobe. He required a cardiac bypass graft surgery on 05/19/2014. Preoperative staging PET/CT was reportedly performed, but results were not available. He then underwent left hemicolectomy on 07/03/2014. His surgical pathology revealed 6 x 5 cm low-grade adenocarcinoma, invading through muscularis propria into the subserosal adipose tissue. Two tumor deposits were present on the pericolonic adipose tissue. None of the 24 lymph nodes harvested were involved with metastatic disease. No lymphovascular or perineural invasion was identified. Luminal obstruction of more than 70% was present. Margins were negative. Thus, his disease was pathologic stage at least IIIB (pT3, N1c, MX). Mismatch repair analysis was normal, without defect identified. The patient had relocated to [place] from [place], to be closer to his daughter. He moved to the [facility] in August 2014 and established care with the [facility] in [place]. His dog handler or trainer is Dr. Lomas. He was first seen by Dr. Vivas on 03/27/2015. His case was presented on the tumor board, consensus was to offer an adjuvant chemotherapy. In interim he had a CT of the chest/abdomen/pelvis on 04/10/2014 which showed increase in the two left lung nodules to 1.8 and 1.69 cm, concerning for metastatic disease. PET/CT on 05/05/2015 confirmed FDG positive two nodules in the left lung. A CT-guided biopsy on 06/11/2015 showed suspicious cells for malignancy, with only scant specimen available. Thus his disease was stage IV (M1b). Palliative FOLFOX and Avastin was recommended and was planned, but the patient decided against palliative chemotherapy. In the meantime, K-kylah mutation was performed on the original biopsy, and mutations were not detected. He was then followed on observation/symptomatic management. Restaging CT scans of the chest, abdomen, and pelvis on 07/24/2016 showed increasing size left pulmonary nodules/mass with the largest mass of the left lung base measuring 3.1 x 2.6 cm. Overall, four nodules were present with continued slow progression since April 2015 study. I had seen him for a follow-up visit in October 2016. He was still not interested in attempting any chemotherapy treatment, and he then failed to return for further follow-up. On 03/15/2018 he presented to the emergency room with back pain. He had evaluation at that time with lumbar spine CT, which showed no acute findings. He was diagnosed with acute left-sided sciatica and treated symptomatically. He returned to the emergency room on 03/28/2018. His renal CT at that time showed a partially obstructing 4 x 5 mm ureteral calculus at the left ureteropelvic junction. Other findings included prominent portal and celiac lymph nodes, a mass adjacent to the caudate lobe of the liver measuring 2.3 cm, and a low-attenuation lesion in the hepatic dome which appeared suspicious for a metastatic lesion. Also noted were enlarging pulmonary masses in the left lower lobe. I had seen him for a follow-up visit on 04/13/2018. At that point I did request further evaluation with a next generation sequencing study. It showed no actionable mutations. The tumor was noted to be MSI stable. He continued observation/expectant management for the colon cancer. However, he was still having problems related to the kidney stone. He had continued follow-up with Dr. Mckeon and on 06/14/2018 he underwent extracorporeal shockwave lithotripsy for the left distal ureteral stone. He required temporary ureteral stent placement. He had no complications with the procedure, and the stent was later removed. At his follow-up visit on 04/29/2019 his CEA level had increased to 21.7 ng/mL compared to 8.9 ng/mL in April 2018. However, he was still not interested in considering any treatment. He was then seen for a follow-up visit again on 10/27/2019. At that point his CEA had further increased to 41.4 ng/mL. He then had restaging CT scans of the chest, abdomen, and pelvis on 11/07/2019. Those studies showed significant progression of metastatic disease with increasing pulmonary nodules in both lungs, the largest in the left upper lobe measuring 3.5 x 2.9 cm and in the left lower lobe measuring 4.6 x 4.9 cm. There was progression of metastatic lesions in the right hepatic lobe, the largest measuring 4.3 x 3.4 cm in the dome of the liver and 4.8 cm in the right hepatic lobe laterally. Also noted were multiple enlarged partially calcified lymph nodes in the love hepatis and celiac axis, bulky enlarged retrocrural and gastroesophageal lymph nodes, and bulky periaortic and retroperitoneal lymph nodes, all new from previous studies. With those findings he did opt to begin a trial of therapy with panitumumab as a single agent. He began cycle 1 on 11/17/2019. His further treatment was then put on hold due to a severe skin eruption, which developed despite having been given dexamethasone prophylaxis. During follow-up his rash slowly improved, and during that time there was a significant decline in his CEA level. As such, he opted to continue treatment, and he restarted panitumumab on 01/12/2020 with the dosage reduced to 2 mg/kg by IV infusion. He tolerated it with acceptable toxicity and he continued treatment at 2-week intervals. As of 02/07/2020 his CEA level had decreased to 18.9 ng/mL, and it then stabilized. Restaging CT scans on 04/13/2020 showed multiple metastatic pulmonary nodules throughout both lungs, with the size and number relatively unchanged compared to the December 2019 study. Heterogeneous and partially calcified metastatic lesions of both hepatic lobes also appeared stable, as did his bulky upper abdominal lymphadenopathy. Previously described tiny left pericolic gutter metastatic lesions appear to have resolved. A lytic lesion in the right iliac wing was noted to be stable. With those findings, he continued the panitumumab monotherapy at 2-week intervals. However, following his treatment on 05/15/2020 the panitumumab was put on hold due to worsening skin eruption and other side effects. He had continued with cycle 14 of panitumumab on 07/03/2020. However, at that point his CEA level had increased significantly, to 30.4 ng/mL, and I then opted to stop that treatment. His other medical illnesses include hypertension, hyperlipidemia, type II diabetes, and coronary artery disease. He has a history of smoking a pack and a half of cigarettes daily for 30 years, but he quit smoking more than 10 years ago. INTERIM HISTORY: On 09/04/2020 he began cycle 1 of 2nd line treatment with FOLFIRI chemotherapy in combination with Avastin. His baseline CEA level was 52.8 ng/mL. He reported increased fatigue and somnolence following that treatment. He did not experience any other toxicity acutely. At his follow-up visit on 09/18/2020 he continued to report severe fatigue and he opted to delay any further chemotherapy. He was not having diarrhea. Four days later he was taken to the emergency room after his daughter found him unresponsive at home. When she was able to arouse him she thought he was not moving his right arm and leg, and on that basis it was suspected he might be having an acute stroke. However, in the emergency room he was found to be significantly hypoglycemic. He was admitted to the hospital. His brain MRI showed no acute infarct or hemorrhage and no evidence of metastatic disease. He was discharged home on 09/25/2020. He is seen for a follow-up visit. He is still not felt good generally since his hospitalization in September. He has limited activity tolerance and he also has limited mobility. He has able to ambulate with a walker, but with some difficulty, as his walker is pretty old and is in need of repair. His ECOG score is 2. His appetite is okay, but he does have some early satiety. He does not have fever or night sweats. He has not had sore mouth or throat. He has trouble swallowing pills with water, but not as much with milk. He does not complain of cough. He is short of breath if he tries to walk too far. He does not complain of chest pain. He has no GI or complaints other than some constipation. He has pain in his right shoulder and in both hips, right worse than left. He does not complain of headache or dizziness. He has some tingling in his arms and he also has numbness/tingling in his lower extremities if he sits too long. Medications: Aspirin 1 Tablet (of 81 mg) Tablet, chewable Oral daily, Atorvastatin Calcium (40 mg) Tablet Oral daily, Clopidogrel Bisulfate (75 mg) Tablet Oral daily, Magnesium (400 mg) Tablet Oral daily, Metoprolol Tartrate 1 Tablet (of 25 mg) Oral b.i.d., Ondansetron 1 Tablet (of 4 mg) Tablet Dispersable Oral q 4 hours PRN, Vitamin D3 1 (2000 Units) Tablet Oral daily Allergies: Penicillin V Potassium Vital Signs: Performed on Nov 20, 2020 15:00 Height - 67.00 in Weight - 195.6 lbs (LOW) BSA - 2.00 sq.m BMI - 30.64 (HIGH) Temperature - 98.3 F (LOW) Pulse - 82 /min Respiration - 18 /min BP - 131/85 mm(hg) O2 Sat - 98 % Pain - 3 Fatigue - 5 Physical Examination: Constitutional - He appears generally weak and he has limited mobility, Eyes - Sclerae nonicteric. Conjunctivae clear, ENMT - No lesions noted in the oral cavity, Hematologic/Lymphatic - No cervical, clavicular, or axillary adenopathy, Respiratory - Lungs sound clear, Cardiovascular - Heart rhythm is regular. There is a II/ systolic murmur. There is no gallop or rub noted, Abdomen - Mildly distended but soft. Liver and spleen are not enlarged. There is no abdominal mass or ascites noted and there is no inguinal adenopathy, Extremities - No edema, Neurologic - No focal neurologic deficits noted. Lab/Imaging: Test performed on Nov 20, 2020 13:51 Iron 26 mcg/dL Sodium 135 mmol/L Iron Binding Capacity (TIBC) 195 mcg/dl Potassium 4.4 mmol/L % Iron Saturation 13.3 % Chloride 100 mmol/L Est Avg Glucose (eAG) 103 mg/dL CO2 24 mmol/L UIBC 169 mcg/dL Anion Gap 15.4 BUN 18 mg/dL Creatinine 1.1 mg/dL Cr Clearance (Est) 84.3300 mL/min Glucose 113 mg/dL Osmolality - Calculated 283 mOsm/kg Calcium 8.7 mg/dL Protein, Total 7.2 g/dL Albumin 3.6 g/dL Globulin 3.6 g/dL Bilirubin, Total 0.3 mg/dL ALT (SGPT) 6 U/L AST (SGOT) 14 U/L Alkaline Phosphatase 82 IU/L Hemoglobin A1C % 5.2 % WBC 8.6 10 3/uL RBC 4.96 10 6/uL HGB 11.6 g/dL HCT 38.0 % MCV 76.6 fl MCH 23.4 pg MCHC 30.5 g/dL RDW 18.7 % Platelet Count 220 10 3/cmm MPV 10.8 fL Neutrophils 5.71 10 3/uL Lymphocytes 1.6 10 3/uL Monocytes 0.9 10 3/uL Eosinophils 0.3 10 3/uL Basophils 0.1 10 3/uL Neutrophil % 66.5 % Lymphocyte % 18.4 % Monocyte % 10.0 % Eosinophil % 3.6 % Basophils % 1.3 % NRBC % 0 % CEA 65.1 ng/mL Problem List: 1. Low-grade adenocarcinoma of the distal sigmoid colon, stage IV (T3, N1c, M1b). He underwent left hemicolectomy on 07/03/2014. During subsequent follow-up he had enlarging, FDG avid pulmonary nodules, consistent with metastatic disease. He initially opted to have just symptomatic/supportive care. 2. He had non-ST elevation myocardial infarction at initial presentation, and he did require coronary artery bypass surgery prior to the colon resection. 3. Hypertension. 4. Hyperlipidemia. 5. Type II diabetes. 6. Nephrolithiasis. He underwent extracorporeal shockwave lithotripsy for a left distal ureteral stone in June 2018. Problems Addressed with this Encounter and Plan: 1. Patient with low-grade adenocarcinoma of the sigmoid colon, stage IV, with multiple pulmonary metastases and with metastatic involvement in the liver and upper abdominal lymph nodes. He began panitumumab monotherapy in November 2019. During treatment there was a significant decline in his CEA level but with his restaging CT scans showing stable findings. Following his treatment on 05/15/2020 the panitumumab was put on hold due to worsening skin eruption and declining performance status. At that point his CEA level was stable at 13.0 ng/mL. As of his follow-up visit on 07/03/2020 there was a significant increase in the CEA level to 30.4 ng/mL. At that point I opted to stop any further treatment with panitumumab. He ultimately agreed to a trial of second line therapy with FOLFIRI chemotherapy in combination with Avastin. He began cycle 1 on 09/04/2020. His baseline CEA level was 52.8 ng/mL. He has had worsening fatigue/somnolence following that treatment, and as of his follow-up visit on 09/18/2020 he opted to delay any further chemotherapy. At that point he was not having diarrhea or other obvious chemotherapy related toxicities. However, 4 days later he was admitted to the hospital after he became severely hypoglycemic at home. There was some suspicion that also he may have had an acute stroke, but in retrospect that appears to have been unlikely. In any case, he had a significant decline in his performance status with that illness. He has since then had some recovery, but his overall condition remains poor. For now he will continue with observation/symptomatic management. I will see him again in 1 month. 2. He has been mildly anemic. He has serum iron studies are again consistent with iron deficiency. He will restart his oral iron supplement. If he does not respond or does not tolerate it, he will be given the option to have parenteral iron replacement. 3. He has a mobility limitation which is significant enough to impair his MRADLs. He is able to sufficiently resolve the impairment with a walker, which he is able to use safely. His current walker is old and dysfunctional, and I will put in a request to have it replaced with a new one. Signed By: Xiang Castillo M.D. <<Signature on File>>
== END 2020-11-20 13:06 | disposition home or self-care (01) ==
PROVIDERS: PCP Family Medicine; Visit Provider Internal Medicine Medical Oncology
DX: Z08 Encounter for follow-up examination after completed treatment for malignant neoplasm (principal); Z85.038 Personal history of other malignant neoplasm of large intestine; Z85.05 Personal history of malignant neoplasm of liver; Z85.118 Personal history of other malignant neoplasm of bronchus and lung; I10 Essential (primary) hypertension; E78.5 Hyperlipidemia, unspecified; E11.59 Type 2 diabetes mellitus with other circulatory complications; I25.10 Atherosclerotic heart disease of native coronary artery without angina pectoris; Z95.5 Presence of coronary angioplasty implant and graft; D64.9 Anemia, unspecified; Z87.442 Personal history of urinary calculi; Z79.899 Other long term (current) drug therapy; Z92.21 Personal history of antineoplastic chemotherapy
CPT/HCPCS: 80053; 82378; 83036; 83540; 83550; 85025; 96360; 99214; J7040

== ENCOUNTER 2020-12-14 09:19 | Outpatient (CLI) | payer MEDICARE, OTHER, SELFPAY ==
--- NOTE | 2020-12-14 | CT_ITS ---
WS: [id number] CT CHEST, ABDOMEN AND PELVIS WITH CONTRAST. HISTORY: Follow-up metastatic disease. TECHNIQUE: Contiguous 5 mm axial imaging performed through the chest, abdomen and pelvis with IV cont rast, oral contrast has been provided. Coronal and sagittal reformats chest. Coronal and sagittal ref ormats through the abdomen and pelvis. All CT scans at [facility] use at least one of these d ose optimization techniques: automated exposure control; mA and/or kV adjustment per patient size (in cludes targeted exams where dose is matched to clinical indication); or iterative reconstruction. CONTRAST: Omnipaque 300; 95 mL IV. DLP: 2 388.96 mGy-cm. COMPARISON: 04/13/2020 and 01/09/[address]: Significant increase in size and number of the metastatic sites throughout both lungs. The largest mass contains calcifications and abuts the pleura in the LEFT lower lobe. This mass extends o radha a length of 7.9 cm x 6.6 x 5.2 cm. There are additional nodules and masses within all lobes which have increased in size and number. No pleural effusion. LEFT supraclavicular lymph node at 12 mm. At herosclerosis aorta. No enlarged mediastinal or hilar lymph nodes. Heart size is normal. Moderate neena cifications in the coronary arteries. Prior CABG. Abdomen CT: Progression of metastatic disease within the liver. The largest lesions in the LEFT and R IGHT lobes of the liver contain calcifications. These may be treated lesions. These lesions have incr eased in size along with additional metastatic sites. Most significant increase in size RIGHT lesion which is infiltrating towards the hilum of the liver. Portal vein remains patent. Prior cholecystecto my. Spleen is normal size. Calcifications near the pancreatic head may be calcified lymph nodes. The pancreatic head is difficult to visualize but does appear normal. There are extensive enlarged and pa rtially calcified lymph nodes at the love hepatis, celiac axis and extending retroperitoneum. Size a nd number of the lymph nodes has significantly increased. Negative RIGHT kidney. LEFT renal cysts are unchanged. No obstruction of either kidney. Mild atrophy of the LEFT kidney. Extensive atherosclerosis aorta. No ascites. There is mild soft tissue infiltrati on within the mesentery and retroperitoneum which could be tumor extension or edema. There is a soft tissue mass just to the LEFT of midline within the anterior rectus muscle measuring 2.1 x 1.7 cm. The re is an additional enhancing nodule within the musculature of the LEFT abdominal wall above the umbi licus. Pelvic CT: No GI tract obstruction. There is fecal retention. Anastomotic sutures at the sigmoid with no adjacent mass or adenopathy. CT/CT chest abd pel w con* IMPRESSION: 1. Significant progression of metastatic disease within the chest and abdomen. 2. Significant increase in size and number of the metastatic nodules and harley s within the lungs. 3. Increase in size and number of the metastatic sites throughout the liver. 4. Significant increase in size and number of the mesenteric and retroperitone al lymph nodes. 5. Enhancing subcutaneous intramuscular nodules in the LEFT abdominal wall are probably metastatic sites. 6. Highly suspicious for a 12 mm LEFT supraclavicular lymph node which was not present on prior studies.
[2020-12-14] MEDS: iohexol 300 mg/mL 50 mL Btl IV (11:09)
[2020-12-14] MEDS: iodixanol 320 mg/mL 100mL Btl IV (11:09)
== END 2020-12-14 09:20 | disposition home or self-care (01) ==
LOC: RADWPI 09:36
PROVIDERS: PCP Family Medicine; Visit Provider Internal Medicine Medical Oncology
DX: C18.7 Malignant neoplasm of sigmoid colon (principal); C77.2 Secondary and unspecified malignant neoplasm of intra-abdominal lymph nodes; C78.00 Secondary malignant neoplasm of unspecified lung
CPT/HCPCS: 71260; 74177; Q9967

== ENCOUNTER 2020-12-21 09:11 | Outpatient (CLI) | payer MEDICARE, OTHER, SELFPAY ==
[2020-12-21 10:11] LABS: Basophils # 0.1 10^3/uL (0.0-0.1); Basophils % 1.5 %; Eosinophils # 0.5 10^3/uL (0.0-0.8); Eosinophils % 5.3 %; Hematocrit 39.4 % (42.0-52.0); Hemoglobin 12.2 g/dL (11.7-16.6); Lymphocytes # 1.4 10^3/uL (0.8-4.8); Lymphocytes % 16.1 %; Mean Corpuscular Hemoglobin 23.7 pg (28.0-34.0); Mean Corpuscular Volume 76.5 fl (80-94); Mean Platelet Volume 10.4 fL (7.4-10.4); Monocytes # 0.7 10^3/uL (0.2-0.9); Monocytes % 7.7 %; Neutrophils # 6.11 10^3/uL (1.8-7.7); Neutrophils % 69.1 %; Nucleated Red Blood Cells % 0 %; Platelet Count 226 10^3/cmm (130-400); Red Blood Count 5.15 10^6/uL (4.1-5.3); Red Cell Distribution Width 16.6 % (12.1-15.1); White Blood Count 8.8 10^3/uL (4.0-10.0)
[2020-12-21] MEDS: sodium chloride 0.9% 500 ML 999 ML IV (10:20)
== END 2020-12-21 09:12 | disposition home or self-care (01) ==
PROVIDERS: PCP Family Medicine; Visit Provider Internal Medicine Medical Oncology
DX: C18.7 Malignant neoplasm of sigmoid colon (principal); C78.7 Secondary malignant neoplasm of liver and intrahepatic bile duct; C78.01 Secondary malignant neoplasm of right lung; C78.02 Secondary malignant neoplasm of left lung; Z79.899 Other long term (current) drug therapy
CPT/HCPCS: 85025; 96360; J7040

== ENCOUNTER 2020-12-24 05:57 | Outpatient (CLI) | payer MEDICARE, OTHER, SELFPAY ==
[2020-12-24] MEDS: sodium chloride 0.9% 500 ML 999 ML IV (09:40)
--- NOTE | 2020-12-24 12:38 | ONC FU_ITS ---
Dr. Castillo Patient Follow-Up Note Patient: Gulshan Braga Unit #: [id number]: 1950 Dicatated By: Xiang Castillo M.D.Date of Visit:Dec 24, 2020 Onc Med Follow-up/Prog Note Chief Complaint: Colon cancer. 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 He had presented with influenza pneumonia and non-ST elevation NM. During anticoagulation in preparation for coronary artery bypass graft surgery he develop significant rectal bleeding. A CT of the abdomen and pelvis on 05/11/2014 showed a mass in the distal sigmoid colon with soft tissue stranding, but no evidence of disease in the liver. There were 2 discrete nodules in the left lower lobe up to 1.1 cm with a patchy foci in the lingula and the left lower lobe. He required a cardiac bypass graft surgery on 05/19/2014. Preoperative staging PET/CT was reportedly performed, but results were not available. He then underwent left hemicolectomy on 07/03/2014. His surgical pathology revealed 6 x 5 cm low-grade adenocarcinoma, invading through muscularis propria into the subserosal adipose tissue. Two tumor deposits were present on the pericolonic adipose tissue. None of the 24 lymph nodes harvested were involved with metastatic disease. No lymphovascular or perineural invasion was identified. Luminal obstruction of more than 70% was present. Margins were negative. Thus, his disease was pathologic stage at least IIIB (pT3, N1c, MX). Mismatch repair analysis was normal, without defect identified. The patient had relocated to [place] from [place], to be closer to his daughter. He moved to the [facility] in August 2014 and established care with the [facility] in [place]. His central sterilization technician is Dr. Lomas. He was first seen by Dr. Vivas on 03/27/2015. His case was presented on the tumor board, consensus was to offer an adjuvant chemotherapy. In interim he had a CT of the chest/abdomen/pelvis on 04/10/2014 which showed increase in the two left lung nodules to 1.8 and 1.69 cm, concerning for metastatic disease. PET/CT on 05/05/2015 confirmed FDG positive two nodules in the left lung. A CT-guided biopsy on 06/11/2015 showed suspicious cells for malignancy, with only scant specimen available. Thus his disease was stage IV (M1b). Palliative FOLFOX and Avastin was recommended and was planned, but the patient decided against palliative chemotherapy. In the meantime, K-kylah mutation was performed on the original biopsy, and mutations were not detected. He was then followed on observation/symptomatic management. Restaging CT scans of the chest, abdomen, and pelvis on 07/24/2016 showed increasing size left pulmonary nodules/mass with the largest mass of the left lung base measuring 3.1 x 2.6 cm. Overall, four nodules were present with continued slow progression since April 2015 study. I had seen him for a follow-up visit in October 2016. He was still not interested in attempting any chemotherapy treatment, and he then failed to return for further follow-up. On 03/15/2018 he presented to the emergency room with back pain. He had evaluation at that time with lumbar spine CT, which showed no acute findings. He was diagnosed with acute left-sided sciatica and treated symptomatically. He returned to the emergency room on 03/28/2018. His renal CT at that time showed a partially obstructing 4 x 5 mm ureteral calculus at the left ureteropelvic junction. Other findings included prominent portal and celiac lymph nodes, a mass adjacent to the caudate lobe of the liver measuring 2.3 cm, and a low-attenuation lesion in the hepatic dome which appeared suspicious for a metastatic lesion. Also noted were enlarging pulmonary masses in the left lower lobe. I had seen him for a follow-up visit on 04/13/2018. At that point I did request further evaluation with a next generation sequencing study. It showed no actionable mutations. The tumor was noted to be MSI stable. He continued observation/expectant management for the colon cancer. However, he was still having problems related to the kidney stone. He had continued follow-up with Dr. Mckeon and on 06/14/2018 he underwent extracorporeal shockwave lithotripsy for the left distal ureteral stone. He required temporary ureteral stent placement. He had no complications with the procedure, and the stent was later removed. At his follow-up visit on 04/29/2019 his CEA level had increased to 21.7 ng/mL compared to 8.9 ng/mL in April 2018. However, he was still not interested in considering any treatment. He was then seen for a follow-up visit again on 10/27/2019. At that point his CEA had further increased to 41.4 ng/mL. He then had restaging CT scans of the chest, abdomen, and pelvis on 11/07/2019. Those studies showed significant progression of metastatic disease with increasing pulmonary nodules in both lungs, the largest in the left upper lobe measuring 3.5 x 2.9 cm and in the left lower lobe measuring 4.6 x 4.9 cm. There was progression of metastatic lesions in the right hepatic lobe, the largest measuring 4.3 x 3.4 cm in the dome of the liver and 4.8 cm in the right hepatic lobe laterally. Also noted were multiple enlarged partially calcified lymph nodes in the love hepatis and celiac axis, bulky enlarged retrocrural and gastroesophageal lymph nodes, and bulky periaortic and retroperitoneal lymph nodes, all new from previous studies. With those findings he did opt to begin a trial of therapy with panitumumab as a single agent. He began cycle 1 on 11/17/2019. His further treatment was then put on hold due to a severe skin eruption, which developed despite having been given dexamethasone prophylaxis. During follow-up his rash slowly improved, and during that time there was a significant decline in his CEA level. As such, he opted to continue treatment, and he restarted panitumumab on 01/12/2020 with the dosage reduced to 2 mg/kg by IV infusion. He tolerated it with acceptable toxicity and he continued treatment at 2-week intervals. As of 02/07/2020 his CEA level had decreased to 18.9 ng/mL, and it then stabilized. Restaging CT scans on 04/13/2020 showed multiple metastatic pulmonary nodules throughout both lungs, with the size and number relatively unchanged compared to the December 2019 study. Heterogeneous and partially calcified metastatic lesions of both hepatic lobes also appeared stable, as did his bulky upper abdominal lymphadenopathy. Previously described tiny left pericolic gutter metastatic lesions appear to have resolved. A lytic lesion in the right iliac wing was noted to be stable. With those findings, he continued the panitumumab monotherapy at 2-week intervals. However, following his treatment on 05/15/2020 the panitumumab was put on hold due to worsening skin eruption and other side effects. He had continued with cycle 14 of panitumumab on 07/03/2020. However, at that point his CEA level had increased significantly, to 30.4 ng/mL, and I then opted to stop that treatment. His other medical illnesses include hypertension, hyperlipidemia, type II diabetes, and coronary artery disease. He has a history of smoking a pack and a half of cigarettes daily for 30 years, but he quit smoking more than 10 years ago. INTERIM HISTORY: On 09/04/2020 he began cycle 1 of 2nd line treatment with FOLFIRI chemotherapy in combination with Avastin. His baseline CEA level was 52.8 ng/mL. He reported increased fatigue and somnolence following that treatment. He did not experience any other toxicity acutely. At his follow-up visit on 09/18/2020 he continued to report severe fatigue and he opted to delay any further chemotherapy. He was not having diarrhea. Four days later he was taken to the emergency room after his daughter found him unresponsive at home. When she was able to arouse him she thought he was not moving his right arm and leg, and on that basis it was suspected he might be having an acute stroke. However, in the emergency room he was found to be significantly hypoglycemic. He was admitted to the hospital. His brain MRI showed no acute infarct or hemorrhage and no evidence of metastatic disease. He was discharged home on 09/25/2020. As of his follow-up visit on 11/20/2020 is performance status was still very marginal, and his chemotherapy remained on hold, and he continued on observation/symptomatic management. Restaging CT scans of the chest, abdomen, and pelvis on 12/14/2020 showed significant increase in size and number of metastatic sites throughout both lungs. The largest was in the left lower lobe abutting the pleura, measuring 7.9 x 6.6 x 5.2 cm. There was also progression of metastatic disease within the liver. Enhancing subcutaneous intramuscular nodules within the left abdominal wall were also suspicious for metastatic sites. A new left supraclavicular lymph node measuring 12 mm was highly suspicious for metastasis. He is seen for a follow-up visit. He has been feeling a little better generally. His energy comes and goes. He is able to do some walking and some chores at home. He uses a cane or walker to assist him with ambulation. His appetite could be better. He does not have fever or night sweats. Has not had sore mouth or throat. He has had some cough when he is lying on his right side. He is short of breath with activity. He does not complain of chest pain. He has no GI or complaints. He has some pain in his right shoulder. He currently has no other joint or bone pain. He does not complain of headache or dizziness. He has no numbness/paresthesia or other focal neurologic symptoms. Medications: Aspirin 1 Tablet (of 81 mg) Tablet, chewable Oral daily, Atorvastatin Calcium (40 mg) Tablet Oral daily, Clopidogrel Bisulfate (75 mg) Tablet Oral daily, Magnesium (400 mg) Tablet Oral daily, Ondansetron 1 Tablet (of 4 mg) Tablet Dispersable Oral q 4 hours PRN, Vitamin D3 1 (2000 Units) Tablet Oral daily Allergies: Penicillin V Potassium Vital Signs: Performed on Dec 24, 2020 09:53 Height - 67.00 in Weight - 189 lbs (LOW) BSA - 1.97 sq.m BMI - 29.60 Temperature - 98.3 F (LOW) Pulse - 92 /min Respiration - 18 /min BP - 122/77 mm(hg) O2 Sat - 98 % Pain - 0 Fatigue - 3 Physical Examination: Constitutional - He appears somewhat weak generally weak, Eyes - Sclerae nonicteric. Conjunctivae clear, ENMT - No lesions noted in the oral cavity, Hematologic/Lymphatic - No cervical, clavicular, or axillary adenopathy, Respiratory - Lungs sound clear, Cardiovascular - Heart rhythm is irregular. There is a II/ systolic murmur. There is no gallop or rub noted, Abdomen - Mildly distended but soft. Liver and spleen are not enlarged. There is no abdominal mass or ascites noted and there is no inguinal adenopathy, Extremities - No edema, Neurologic - No focal neurologic deficits noted. Problem List: 1. Low-grade adenocarcinoma of the distal sigmoid colon, stage IV (T3, N1c, M1b). He underwent left hemicolectomy on 07/03/2014. During subsequent follow-up he had enlarging, FDG avid pulmonary nodules, consistent with metastatic disease. He initially opted to have just symptomatic/supportive care. 2. He had non-ST elevation myocardial infarction at initial presentation, and he did require coronary artery bypass surgery prior to the colon resection. 3. Hypertension. 4. Hyperlipidemia. 5. Type II diabetes. 6. Nephrolithiasis. He underwent extracorporeal shockwave lithotripsy for a left distal ureteral stone in June 2018. Problems Addressed with this Encounter and Plan: Patient with low-grade adenocarcinoma of the sigmoid colon, stage IV, with multiple pulmonary metastases and with metastatic involvement in the liver and upper abdominal lymph nodes. He began panitumumab monotherapy in November 2019. During treatment there was a significant decline in his CEA level but with his restaging CT scans showing stable findings. Following his treatment on 05/15/2020 the panitumumab was put on hold due to worsening skin eruption and declining performance status. At that point his CEA level was stable at 13.0 ng/mL. As of his follow-up visit on 07/03/2020 there was a significant increase in the CEA level to 30.4 ng/mL. At that point I opted to stop any further treatment with panitumumab. He ultimately agreed to a trial of second line therapy with FOLFIRI chemotherapy in combination with Avastin. He began cycle 1 on 09/04/2020. His baseline CEA level was 52.8 ng/mL. He has had worsening fatigue/somnolence following that treatment, and as of his follow-up visit on 09/18/2020 he opted to delay any further chemotherapy. At that point he was not having diarrhea or other obvious chemotherapy related toxicities. However, 4 days later he was admitted to the hospital after he became severely hypoglycemic at home. There was some suspicion that also he may have had an acute stroke, but in retrospect that appears to have been unlikely. As of his follow-up visit on 11/20/2020 he still had fairly marginal performance status, and his chemotherapy remained on hold. His restaging CT scans on 12/14/2020 showed progression of bilateral pulmonary metastases and progression of metastatic involvement in the liver. The CT findings reviewed with the patient and his daughter, I also reviewed the CT images with them. We discussed options for further management. He has had disease progression on panitumumab monotherapy and subsequently on irinotecan-based chemotherapy. He will still have the option of an oxaliplatin-based chemotherapy regimen, and in his situation I would recommend a modified FOLFOX regimen in combination with Avastin. I reviewed anticipated side effects which may include nausea/vomiting, alopecia, fatigue, low blood counts, and neuropathy, among others. As his disease still appears to be showing gradual progression, we also discussed the possibility of just continuing with symptomatic/supportive care. At this point he is wanting to proceed with the chemotherapy, which I will plan to start next week, subject to verification of insurance coverage. Due to the side effects he experienced previously with chemotherapy, I will start both the oxaliplatin and 5-FU at reduced dosages. Signed By: Xiang Castillo M.D. <<Signature on File>>
== END 2020-12-24 05:58 | disposition home or self-care (01) ==
LOC: ONCMED 05:57
PROVIDERS: PCP Family Medicine; Visit Provider Internal Medicine Medical Oncology
DX: C18.7 Malignant neoplasm of sigmoid colon (principal); C78.01 Secondary malignant neoplasm of right lung; C78.02 Secondary malignant neoplasm of left lung; I25.2 Old myocardial infarction; E11.59 Type 2 diabetes mellitus with other circulatory complications; I25.10 Atherosclerotic heart disease of native coronary artery without angina pectoris; Z95.5 Presence of coronary angioplasty implant and graft; I10 Essential (primary) hypertension; E78.5 Hyperlipidemia, unspecified; N20.0 Calculus of kidney; Z79.899 Other long term (current) drug therapy
CPT/HCPCS: 96360; 99215; J7040

== ENCOUNTER 2021-01-02 06:34 | Outpatient (RCR) | payer MEDICARE, OTHER, SELFPAY ==
[2020-12-31 10:02] LABS: Basophils # 0.1 10^3/uL (0.0-0.1); Basophils % 1.1 %; Eosinophils # 0.4 10^3/uL (0.0-0.8); Eosinophils % 4.6 %; Hematocrit 37.8 % (42.0-52.0); Hemoglobin 11.7 g/dL (11.7-16.6); Lymphocytes # 1.2 10^3/uL (0.8-4.8); Lymphocytes % 14.6 %; Mean Corpuscular Hemoglobin 23.9 pg (28.0-34.0); Mean Corpuscular Volume 77.3 fl (80-94); Mean Platelet Volume 10.4 fL (7.4-10.4); Monocytes # 0.7 10^3/uL (0.2-0.9); Monocytes % 8.9 %; Neutrophils # 5.88 10^3/uL (1.8-7.7); Neutrophils % 70.4 %; Nucleated Red Blood Cells % 0 %; Platelet Count 246 10^3/cmm (130-400); Red Blood Count 4.89 10^6/uL (4.1-5.3); Red Cell Distribution Width 15.9 % (12.1-15.1); White Blood Count 8.3 10^3/uL (4.0-10.0)
[2020-12-31 10:41] LABS: Carcinoembryonic Antigen 80.5 ng/mL (0.0-4.7)
[2020-12-31 10:52] LABS: Alanine Aminotransferase 7 U/L (0-41); Albumin Level 3.6 g/dL (3.5-5.2); Alkaline Phosphatase 103 IU/L (40-130); Anion Gap 16.2 (5-19); Aspartate Amino Transferase 12 U/L (0-40); Blood Urea Nitrogen 14 mg/dL (8-23); Calcium 8.9 mg/dL (8.5-10.5); Carbon Dioxide 23 mmol/L (22-29); Chloride 101 mmol/L (98-107); Globulin 4.1 g/dL (1.3-4.6); Glucose 87 mg/dL (65-115); Osmolality Calculated 282 mOsm/kg (285-295); Potassium 4.2 mmol/L (3.5-5.1); Sodium 136 mmol/L (136-145); Total Bilirubin 0.4 mg/dL (0.15-1.2); Total Protein 7.7 g/dL (6.6-8.7)
[2020-12-31 11:09] LABS: Estmated Average Glucose 114; Hemoglobin A1C 5.6 % (4.0-6.0)
[2020-12-31] MEDS: dextrose 5% 250 ML 75 ML IV (11:21)
[2020-12-31] MEDS: palonosetron 0.25 mg/5 mL SDV IVP (11:21)
== END 2021-01-03 23:59 | disposition home or self-care (01) ==
LOC: ONCMED 06:34
PROVIDERS: PCP Family Medicine; Visit Provider Internal Medicine Medical Oncology
DX: Z51.11 Encounter for antineoplastic chemotherapy (principal); C18.7 Malignant neoplasm of sigmoid colon; C78.7 Secondary malignant neoplasm of liver and intrahepatic bile duct; C78.01 Secondary malignant neoplasm of right lung; C78.02 Secondary malignant neoplasm of left lung; C77.2 Secondary and unspecified malignant neoplasm of intra-abdominal lymph nodes; E10.9 Type 1 diabetes mellitus without complications; Z79.899 Other long term (current) drug therapy
CPT/HCPCS: 80053; 82378; 83036; 85025; 96367; 96368; 96413; 96415; 96416; 96417; 96523; J0640; J1100; J2469; J9035; J9190; J9263

== ENCOUNTER 2021-01-28 06:20 | Outpatient (RCR) | payer MEDICARE, OTHER, SELFPAY ==
[2021-01-14 08:41] LABS: Basophils # 0.1 10^3/uL (0.0-0.1); Basophils % 1.4 %; Eosinophils # 0.3 10^3/uL (0.0-0.8); Eosinophils % 4.5 %; Hemoglobin 11.5 g/dL (11.7-16.6); Lymphocytes # 1.4 10^3/uL (0.8-4.8); Lymphocytes % 21.8 %; Mean Corpuscular HGB Conc 31.1 g/dL (30.0-36.0); Mean Corpuscular Hemoglobin 23.6 pg (28.0-34.0); Mean Corpuscular Volume 75.8 fl (80-94); Mean Platelet Volume 10.1 fL (7.4-10.4); Monocytes # 0.6 10^3/uL (0.2-0.9); Monocytes % 9.8 %; Neutrophils % 62.2 %; Nucleated Red Blood Cells % 0 %; Platelet Count 193 10^3/cmm (130-400); Red Blood Count 4.88 10^6/uL (4.1-5.3); White Blood Count 6.4 10^3/uL (4.0-10.0)
[2021-01-14 09:18] LABS: Alanine Aminotransferase 7 U/L (0-41); Albumin Level 3.6 g/dL (3.5-5.2); Alkaline Phosphatase 93 IU/L (40-130); Anion Gap 12.9 (5-19); Aspartate Amino Transferase 13 U/L (0-40); Blood Urea Nitrogen 11 mg/dL (8-23); Calcium 8.6 mg/dL (8.5-10.5); Carbon Dioxide 22 mmol/L (22-29); Chloride 108 mmol/L (98-107); Globulin 3.4 g/dL (1.3-4.6); Glucose 76 mg/dL (65-115); Osmolality Calculated 286 mOsm/kg (285-295); Potassium 3.9 mmol/L (3.5-5.1); Sodium 139 mmol/L (136-145); Total Bilirubin 0.3 mg/dL (0.15-1.2)
[2021-01-14] MEDS: palonosetron 0.25 mg/5 mL SDV IVP (10:18)
[2021-01-14] MEDS: dextrose 5% 250 ML 75 ML IV (10:18)
--- NOTE | 2021-01-14 15:32 | ONC FU_ITS ---
[facility] Patient Note Patient: Gulshan Braga Unit #: [id number]: 1950 Dictated By: Philip OscarDate of Visit: Jan 14, 2021 Onc MED Follow-Up/Prog Note Chief Complaint: Colon cancer. 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 He had presented with influenza pneumonia and non-ST elevation NJ. During anticoagulation in preparation for coronary artery bypass graft surgery he develop significant rectal bleeding. A CT of the abdomen and pelvis on 05/11/2014 showed a mass in the distal sigmoid colon with soft tissue stranding, but no evidence of disease in the liver. There were 2 discrete nodules in the left lower lobe up to 1.1 cm with a patchy foci in the lingula and the left lower lobe. He required a cardiac bypass graft surgery on 05/19/2014. Preoperative staging PET/CT was reportedly performed, but results were not available. He then underwent left hemicolectomy on 07/03/2014. His surgical pathology revealed 6 x 5 cm low-grade adenocarcinoma, invading through muscularis propria into the subserosal adipose tissue. Two tumor deposits were present on the pericolonic adipose tissue. None of the 24 lymph nodes harvested were involved with metastatic disease. No lymphovascular or perineural invasion was identified. Luminal obstruction of more than 70% was present. Margins were negative. Thus, his disease was pathologic stage at least IIIB (pT3, N1c, MX). Mismatch repair analysis was normal, without defect identified. The patient had relocated to [place] from [place], to be closer to his daughter. He moved to the [facility] in August 2014 and established care with the [facility] in [place]. His wire frame dipper is Dr. Lomas. He was first seen by Dr. Vivas on 03/27/2015. His case was presented on the tumor board, consensus was to offer an adjuvant chemotherapy. In interim he had a CT of the chest/abdomen/pelvis on 04/10/2014 which showed increase in the two left lung nodules to 1.8 and 1.69 cm, concerning for metastatic disease. PET/CT on 05/05/2015 confirmed FDG positive two nodules in the left lung. A CT-guided biopsy on 06/11/2015 showed suspicious cells for malignancy, with only scant specimen available. Thus his disease was stage IV (M1b). Palliative FOLFOX and Avastin was recommended and was planned, but the patient decided against palliative chemotherapy. In the meantime, K-kylah mutation was performed on the original biopsy, and mutations were not detected. He was then followed on observation/symptomatic management. Restaging CT scans of the chest, abdomen, and pelvis on 07/24/2016 showed increasing size left pulmonary nodules/mass with the largest mass of the left lung base measuring 3.1 x 2.6 cm. Overall, four nodules were present with continued slow progression since April 2015 study. I had seen him for a follow-up visit in October 2016. He was still not interested in attempting any chemotherapy treatment, and he then failed to return for further follow-up. On 03/15/2018 he presented to the emergency room with back pain. He had evaluation at that time with lumbar spine CT, which showed no acute findings. He was diagnosed with acute left-sided sciatica and treated symptomatically. He returned to the emergency room on 03/28/2018. His renal CT at that time showed a partially obstructing 4 x 5 mm ureteral calculus at the left ureteropelvic junction. Other findings included prominent portal and celiac lymph nodes, a mass adjacent to the caudate lobe of the liver measuring 2.3 cm, and a low-attenuation lesion in the hepatic dome which appeared suspicious for a metastatic lesion. Also noted were enlarging pulmonary masses in the left lower lobe. Dr Castillo had seen him for a follow-up visit on 04/13/2018. At that point, Dr Castillo did request further evaluation with a next generation sequencing study. It showed no actionable mutations. The tumor was noted to be MSI stable. He continued observation/expectant management for the colon cancer. However, he was still having problems related to the kidney stone. He had continued follow-up with Dr. Mckeon and on 06/14/2018 he underwent extracorporeal shockwave lithotripsy for the left distal ureteral stone. He required temporary ureteral stent placement. He had no complications with the procedure, and the stent was later removed. At his follow-up visit on 04/29/2019 his CEA level had increased to 21.7 ng/mL compared to 8.9 ng/mL in April 2018. However, he was still not interested in considering any treatment. He was then seen for a follow-up visit again on 10/27/2019. At that point his CEA had further increased to 41.4 ng/mL. He then had restaging CT scans of the chest, abdomen, and pelvis on 11/07/2019. Those studies showed significant progression of metastatic disease with increasing pulmonary nodules in both lungs, the largest in the left upper lobe measuring 3.5 x 2.9 cm and in the left lower lobe measuring 4.6 x 4.9 cm. There was progression of metastatic lesions in the right hepatic lobe, the largest measuring 4.3 x 3.4 cm in the dome of the liver and 4.8 cm in the right hepatic lobe laterally. Also noted were multiple enlarged partially calcified lymph nodes in the love hepatis and celiac axis, bulky enlarged retrocrural and gastroesophageal lymph nodes, and bulky periaortic and retroperitoneal lymph nodes, all new from previous studies. With those findings he did opt to begin a trial of therapy with panitumumab as a single agent. He began cycle 1 on 11/17/2019. His further treatment was then put on hold due to a severe skin eruption, which developed despite having been given dexamethasone prophylaxis. During follow-up his rash slowly improved, and during that time there was a significant decline in his CEA level. As such, he opted to continue treatment, and he restarted panitumumab on 01/12/2020 with the dosage reduced to 2 mg/kg by IV infusion. He tolerated it with acceptable toxicity and he continued treatment at 2-week intervals. As of 02/07/2020 his CEA level had decreased to 18.9 ng/mL, and it then stabilized. Restaging CT scans on 04/13/2020 showed multiple metastatic pulmonary nodules throughout both lungs, with the size and number relatively unchanged compared to the December 2019 study. Heterogeneous and partially calcified metastatic lesions of both hepatic lobes also appeared stable, as did his bulky upper abdominal lymphadenopathy. Previously described tiny left pericolic gutter metastatic lesions appear to have resolved. A lytic lesion in the right iliac wing was noted to be stable. With those findings, he continued the panitumumab monotherapy at 2-week intervals. However, following his treatment on 05/15/2020 the panitumumab was put on hold due to worsening skin eruption and other side effects. He had continued with cycle 14 of panitumumab on 07/03/2020. However, at that point his CEA level had increased significantly, to 30.4 ng/mL, and I then opted to stop that treatment. His other medical illnesses include hypertension, hyperlipidemia, type II diabetes, and coronary artery disease. He has a history of smoking a pack and a half of cigarettes daily for 30 years, but he quit smoking more than 10 years ago. INTERIM HISTORY: On 09/04/2020 he began cycle 1 of 2nd line treatment with FOLFIRI chemotherapy in combination with Avastin. His baseline CEA level was 52.8 ng/mL. He reported increased fatigue and somnolence following that treatment. He did not experience any other toxicity acutely. At his follow-up visit on 09/18/2020 he continued to report severe fatigue and he opted to delay any further chemotherapy. He was not having diarrhea. Four days later he was taken to the emergency room after his daughter found him unresponsive at home. When she was able to arouse him she thought he was not moving his right arm and leg, and on that basis it was suspected he might be having an acute stroke. However, in the emergency room he was found to be significantly hypoglycemic. He was admitted to the hospital. His brain MRI showed no acute infarct or hemorrhage and no evidence of metastatic disease. He was discharged home on 09/25/2020. As of his follow-up visit on 11/20/2020 is performance status was still very marginal, and his chemotherapy remained on hold, and he continued on observation/symptomatic management. Restaging CT scans of the chest, abdomen, and pelvis on 12/14/2020 showed significant increase in size and number of metastatic sites throughout both lungs. The largest was in the left lower lobe abutting the pleura, measuring 7.9 x 6.6 x 5.2 cm. There was also progression of metastatic disease within the liver. Enhancing subcutaneous intramuscular nodules within the left abdominal wall were also suspicious for metastatic sites. A new left supraclavicular lymph node measuring 12 mm was highly suspicious for metastasis. Mr Braga was offered palliative chemotherapy with modified FOLFOX/Avastin. He began his first cycle on 12/31/2020. He has tolerated relatively well with the exception of intermittent diarrhea and cold induced neuropathy. He is here today for followup. He is jovial and pleasant today. He denies any fever or chills. He states that he has not had any mouth sores, sore throat or difficulty swallowing. He states his breathing is about the same. He denies any cough. He has had no hemoptysis. He states he has had intermittent diarrhea. He states it occurs about 1 to 1/2 hours after he eats. He states he has been using [id number] medicines and it slows it down but does not alleviate this diarrhea. He has not tried any antidiarrheals prior to eating. He denies any gastritis symptoms. He has had no occult blood in his stools. He states his stools are black because he is taking iron tablet once a day. 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 He states he is having trouble buttoning the buttons on his shirt at times. That is improved today but is still somewhat residual. He states his feet have been fine. He continues to utilize a wheeled walker for mobility assistance. He states he is taking his iron tablets once a day and this does not bother his stomach. He he states he has been on them for about 6 weeks . Mr. Braga denies any other concerns today. He states he is eating good. His total weight loss since diagnosis is close to 100 pounds. He states he has been active. He states he sees his friends at breakfast and is enjoying this. He states he rests a lot because a stay in away from the Covid. He is due for his second Covid vaccine on Thursday. He is advised he can go ahead and do that but I did encourage him to take Tylenol prior to his Covid vaccine administration to help sullivan off any fever or body aches. He is encouraged to let us know if he has any further questions. His ECOG today is 1. CANCER TREATMENT HISTORY: 1. 05/11/2014 distal sigmoid mass-treatment delayed due to coronary bypass grafting on 05/19/2014. He did have a left hemicolectomy on 07/03/2014. He then transitioned to the [facility] on August 2014 and establish care at the [facility]. He had follow-up PET/CT on May 05, 2015 which confirmed 2+ nodes in the left lung. CT-guided biopsy showed suspicious cells for malignancy. Palliative FOLFOX and Avastin was recommended at that time but he decided against palliative chemotherapy. He did have a K-kylah mutation assessment and no mutations were detected. 2. Follow-up restaging imaging with CT of the chest abdomen pelvis on July 24, 2016 showed increase in the left pulmonary nodules the largest in the left lung base measuring 3.1 x 2.6 cm. There were 4 nodules that has slowly grown since his April [address] Castillo then recommended further follow-up in October 2016 but he was still not interested in attempting chemotherapy. 3. March 2018 he presented to the ER with back pain was found to have acute left-sided sciatica and treated symptomatically. He then returned again 2 weeks later with a renal CT was showing a partial obstructive 4.5 mm ureteral calculus at the left uteropelvic junction. CT did show further concern with a mass adjacent to the caudate lobe of the liver measuring 2.3 cm. There was a low-attenuation lesion in the hepatic dome that appeared suspicious for metastatic lesions. He also had enlarging pulmonary masses in the left lower lobe. 4. He was seen for follow-up on April 13, 2018 and again elected no further chemotherapy at that time. He did have shockwave lithotripsy for the left distal ureteral stone with Dr. Mckeon on 06/14/2018. He was able to have a temporary ureteral stent replaced and later it was removed. was performed had no actionable mutations. He remained on expectant management for the colon cancer. He did have follow-up with Dr. Mckeon for the kidney stone. 5. Follow-up on April 29, 2019 CA had significant increased to 21.7 compared to 8.9 in his April 2018 visit however he really was not interested in pursuing chemotherapy at that time and was seen again in October 2019. His CEA had further increased to 41.[address] of the chest abdomen pelvis did show significant disease progression and he is seen pulmonary nodules in the left and right lungs lung and upper lobe mass was 3.5 x 2.9 cm and the left lower lobe measured 4.4 x 4.9. He was progression in the liver lymph nodes in the love hepatis, celiac axis bulky enlarged retrocrural and gastroesophageal lymph nodes and bulky perianal and retroperitoneal lymph nodes all which were new. Given those findings he opted for trial of Panitumumab as single agent. He began this on 11/17/2019. The Panitumumab was held on several occasions due to severe skin eruptions but he did have significant decline in his CEA. He did restart Panitumumab on January 11, 2021 with a reduced dose and had acceptable toxicity. He continued on a 2-week interval treatment. By February 07, 2020 CEA had decreased to 18.9. 6. On 05/15/2020 the Panitumumab was put on hold due to worsening skin eruption and other side effects. He did continue with cycle 14 of Panitumumab on 07/03/2020 but his CEA had significantly increased to 30.4 and treatment was stopped at that point. 7. On 09/04/2020 he began second line treatment with FOLFIRI chemotherapy accommodation with Avastin. His baseline CEA at that time was 52.8. He had significant somnolence and fatigue with that treatment. He opted to forego any further chemotherapy as of 09/18/2020 and 4 days later second to the ER after his daughter found him unresponsive at home. There was an MRI of the brain which showed no acute infarct hemorrhage or evidence of metastatic disease. He was discharged home on 09/25/2020 and that has November 20, 2020 his performance status was very marginal and his chemotherapy remained on hold. 8. Restaging CTs of the chest abdomen pelvis on 12/14/2020 which showed significant increase in size and number of metastatic sites throughout both lungs and further disease progression. He was offered palliative chemotherapy with modified FOLFOX/Avastin. He began his first cycle on 12/31/2020. .Past Medical History: Coronary artery disease Diabetes type I Hyperlipidemia Hypertension Sleep Apnea in 2016 Past Surgical History: Appendectomy Cataract excision Cholecystectomy Colonoscopy Coronary artery bypass PORT PLACEMENT DR. DAILY Allergies: Penicillin V Potassium Medications: Aspirin 1 Tablet (of 81 mg) Tablet, chewable Oral daily Atorvastatin Calcium (40 mg) Tablet Oral daily Clopidogrel Bisulfate (75 mg) Tablet Oral daily Magnesium (400 mg) Tablet Oral daily Ondansetron 1 Tablet (of 4 mg) Tablet Dispersable Oral q 4 hours PRN Vitamin D3 1 (2000 Units) Tablet Oral daily Family History: Mr. Braga's mother is . Mr. Braga's father is . unknown family history, brother with history of heart disease. Social History: Mr. Braga is and he is retired. Mr. Braga quit smoking 12 years ago but had smoked 1.5 packs/day for 30 years. He has indicated exposure to the following products: cigarettes. Mr. Braga reports the following support systems: lives alone, lives in own house, supportive family/friends willing to assist with needs, and adequate transportation available for expected visits. His diet consists of regular meals. He indicates his activity level as: daily activities. Review Of Symptoms: <See Above> Vital Signs: Performed on Jan 14, 2021 09:28 Height - 67.00 in Weight - 184.2 lbs (LOW) BSA - 1.95 sq.m BMI - 28.85 Temperature - 97.9 F (LOW) Pulse - 81 /min Respiration - 18 /min BP - 121/75 mm(hg) O2 Sat - 99 % Pain - 0 Fatigue - 5,1 - No physically strenuous activity, but ambulatory and able to carry out light or sedentary work (e.g. office work, light house work). (ECOG) Physical Examination: Constitutional Alert, oriented, no acute distress. Skin pink, warm and dry. He is pleasant and somewhat jovial today. Head Normocephalic; atraumatic. Eyes Conjunctivae and sclerae are clear and without icterus. Pupils are reactive and equal. Neck Supple without masses or thyromegaly. No jugular venous distension. Hematologic/Lymphatic No petechiae or purpura. No tender or palpable lymph nodes in the cervical or supraclavicular areas. Respiratory Lungs are clear to auscultation without rhonchi or wheezing. Cardiovascular Regular rate and rhythm of heart without murmurs,clicks, gallops or rubs. Chest Left subclavian Port-A-Cath site has healed well. It is unremarkable. Abdomen Non-tender, non-distended, no masses, ascites. Bowel sounds noted in all quads. Back/Spine Non-tender to palpation. Extremities No visible deformities, no cyanosis, clubbing or edema. Musculoskeletal No tenderness or swelling, normal range of motion without obvious weakness. Integumentary No rashes or lesions. Neurologic No sensory or motor deficits, normal cerebellar function, assisted gait-walking with walker today for stability per his report. Psychiatric Alert and oriented times three. Coherent speech. Verbalizes understanding of our discussions today. Laboratory:Test performed on Jan 14, 2021 08:18 Sodium 139 mmol/L Potassium 3.9 mmol/L Chloride 108 mmol/L CO2 22 mmol/L Anion Gap 12.9 BUN 11 mg/dL Creatinine 0.8 mg/dL Cr Clearance (Est) 102.7000 mL/min Glucose 76 mg/dL Osmolality - Calculated 286 mOsm/kg Calcium 8.6 mg/dL Protein, Total 7.0 g/dL Albumin 3.6 g/dL Globulin 3.4 g/dL Bilirubin, Total 0.3 mg/dL ALT (SGPT) 7 U/L AST (SGOT) 13 U/L Alkaline Phosphatase 93 IU/L WBC 6.4 10 3/uL RBC 4.88 10 6/uL HGB 11.5 g/dL HCT 37.0 % MCV 75.8 fl MCH 23.6 pg MCHC 31.1 g/dL RDW 16.0 % Platelet Count 193 10 3/cmm MPV 10.1 fL Neutrophils 4.00 10 3/uL Lymphocytes 1.4 10 3/uL Monocytes 0.6 10 3/uL Eosinophils 0.3 10 3/uL Basophils 0.1 10 3/uL Neutrophil % 62.2 % Lymphocyte % 21.8 % Monocyte % 9.8 % Eosinophil % 4.5 % Basophils % 1.4 % NRBC % 0 % Test performed on Dec 31, 2020 09:03 Est Avg Glucose (eAG) 114 mg/dL Hemoglobin A1C % 5.6 % CEA 80.5 ng/mL Test performed on Nov 20, 2020 13:51 Iron 26 mcg/dL Iron Binding Capacity (TIBC) 195 mcg/dl % Iron Saturation 13.3 % UIBC 169 mcg/dL Impression: 1. Low-grade adenocarcinoma of the distal sigmoid colon, stage IV (T3, N1c, M1b). He underwent left hemicolectomy on 07/03/2014. During subsequent follow-up he had enlarging, FDG avid pulmonary nodules, consistent with metastatic disease. He initially opted to have just symptomatic/supportive care. 2. He had non-ST elevation myocardial infarction at initial presentation, and he did require coronary artery bypass surgery prior to the colon resection. 3. Hypertension. 4. Hyperlipidemia. 5. Type II diabetes. 6. Nephrolithiasis. He underwent extracorporeal shockwave lithotripsy for a left distal ureteral stone in June 2018. Plan/Problems Addressed at this Visit: Patient with low-grade adenocarcinoma of the sigmoid colon, stage IV, with multiple pulmonary metastases and with metastatic involvement in the liver and upper abdominal lymph nodes. He began panitumumab monotherapy in November 2019. During treatment there was a significant decline in his CEA level but with his restaging CT scans showing stable findings. Following his treatment on 05/15/2020 the panitumumab was put on hold due to worsening skin eruption and declining performance status. At that point his CEA level was stable at 13.0 ng/mL. As of his follow-up visit on 07/03/2020 there was a significant increase in the CEA level to 30.4 ng/mL. At that point I opted to stop any further treatment with panitumumab. He ultimately agreed to a trial of second line therapy with FOLFIRI chemotherapy in combination with Avastin. He began cycle 1 on 09/04/2020. His baseline CEA level was 52.8 ng/mL. He has had worsening fatigue/somnolence following that treatment, and as of his follow-up visit on 09/18/2020 he opted to delay any further chemotherapy. At that point he was not having diarrhea or other obvious chemotherapy related toxicities. However, 4 days later he was admitted to the hospital after he became severely hypoglycemic at home. There was some suspicion that also he may have had an acute stroke, but in retrospect that appears to have been unlikely. As of his follow-up visit on 11/20/2020 he still had fairly marginal performance status, and his chemotherapy remained on hold. His restaging CT scans on 12/14/2020 showed progression of bilateral pulmonary metastases and progression of metastatic involvement in the liver. The CT findings reviewed with the patient and his daughter per Dr Castillo. He discussed options for further management. He has had disease progression on panitumumab monotherapy and subsequently on irinotecan-based chemotherapy. He will still have the option of an oxaliplatin-based chemotherapy regimen, and in his situation, Dr Castillo did recommend a modified FOLFOX regimen in combination with Avastin. He was agreeable to a trial of the chemotherapy and was started at a reduced dose and began his first cycle on December 31, 2020. He has tolerated it well overall. 1. Proceed with cycle 2 FOLFOX Avastin. 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 He will go to 65 mg per metered squared. His 5-FU and Avastin will remain the same. 2. He will continue the same antiemetics as these are working well for him. 3. Today's labs were reviewed in detail and discussed with Mr. Braga and a copy was given to him. WBC 6.4, hemoglobin 11.5, platelets 93,000 his ANC is 4000. Potassium 3.9 creatinine 0.8 LFTs are normal. His last CEA was on December 31, 2020 which time was 80.5 his hemoglobin A1c was 5.6 at that time. 4. His last iron studies were on November 20 at which time his iron saturation was 26%. His iron sat was 13.3%. His iron has not been repeated since that test. 5. Plan to see him back in 2 weeks with CBC CMP UA for Avastin monitoring and repeat follow-up iron studies to include ferritin TIBC. He is currently taking 1 iron supplement a day he may be able to tolerate 2 but may also benefit from IV iron if he is not having much success with the oral tablets. 6. We did discuss that the neuropathy may improve with dose reduction it may worsen with dose reduction will just need to monitor him and see. This will be his only second dose of the oxaliplatin. 7. Mr. Braga was instructed to try taking antidiarrheal just prior to or with meals to see if this will delay the diarrhea episodes he is complaining of about an hour to hour and half after he eats. It is noted that his weight is down 3 pounds since his last visit. 8. We will plan to see him back as scheduled unless otherwise needed. Mr. Braga was encouraged to let us know in the interim should questions or problems arise. Signed By: Philip Oscar-, AOP Xiang Castillo MD <<Signature on File>>
[2021-01-16] MEDS: sodium chloride 0.9% 1,000 ML 999 ML IV (13:40)
[2021-01-28 08:59] LABS: Basophils # 0.1 10^3/uL (0.0-0.1); Basophils % 1.8 %; Eosinophils # 0.3 10^3/uL (0.0-0.8); Eosinophils % 4.6 %; Hematocrit 38.4 % (42.0-52.0); Hemoglobin 11.7 g/dL (11.7-16.6); Lymphocytes # 1.6 10^3/uL (0.8-4.8); Lymphocytes % 25.9 %; Mean Corpuscular HGB Conc 30.5 g/dL (30.0-36.0); Mean Corpuscular Hemoglobin 23.8 pg (28.0-34.0); Mean Platelet Volume 9.9 fL (7.4-10.4); Monocytes # 0.8 10^3/uL (0.2-0.9); Monocytes % 12.5 %; Neutrophils # 3.44 10^3/uL (1.8-7.7); Neutrophils % 54.9 %; Nucleated Red Blood Cells % 0 %; Platelet Count 113 10^3/cmm (130-400); Red Blood Count 4.92 10^6/uL (4.1-5.3); Red Cell Distribution Width 18.5 % (12.1-15.1); White Blood Count 6.3 10^3/uL (4.0-10.0)
[2021-01-28 09:26] LABS: Carcinoembryonic Antigen 105.7 ng/mL (0.0-4.7)
[2021-01-28 09:37] LABS: Alanine Aminotransferase 7 U/L (0-41); Albumin Level 3.6 g/dL (3.5-5.2); Alkaline Phosphatase 77 IU/L (40-130); Anion Gap 14.2 (5-19); Aspartate Amino Transferase 14 U/L (0-40); Blood Urea Nitrogen 12 mg/dL (8-23); Calcium 8.9 mg/dL (8.5-10.5); Carbon Dioxide 23 mmol/L (22-29); Chloride 106 mmol/L (98-107); Globulin 3.6 g/dL (1.3-4.6); Glucose 73 mg/dL (65-115); Osmolality Calculated 286 mOsm/kg (285-295); Potassium 4.2 mmol/L (3.5-5.1); Sodium 139 mmol/L (136-145); Total Bilirubin 0.4 mg/dL (0.15-1.2); Total Protein 7.2 g/dL (6.6-8.7)
[2021-01-28 09:57] LABS: Iron 53 ug/dL (59-158); Percent Saturation 19.2 % (20-50); Total Iron Binding Capacity 275 mcg/dl; Unsaturated Iron Binding 222 ug/dL (112-347)
[2021-01-28] MEDS: famotidine 20 mg/2 mL INJ IVP (10:42)
[2021-01-28] MEDS: palonosetron 0.25 mg/5 mL SDV IV (10:42)
[2021-01-28] MEDS: sodium chloride 0.9% 1,000 ML 999 ML IV (11:01)
[2021-01-28 11:03] LABS: Ferritin 300 ng/mL (30-400)
--- NOTE | 2021-02-08 13:20 | ONC FU_ITS ---
[facility] Patient Note Patient: Gulshan Braga Unit #: [id number]: 1950 Dictated By: Philip OscarDate of Visit: Jan 28, 2021 Onc MED Follow-Up/Prog Note Chief Complaint: Colon cancer. 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 He had presented with influenza pneumonia and non-ST elevation AL. During anticoagulation in preparation for coronary artery bypass graft surgery he develop significant rectal bleeding. A CT of the abdomen and pelvis on 05/11/2014 showed a mass in the distal sigmoid colon with soft tissue stranding, but no evidence of disease in the liver. There were 2 discrete nodules in the left lower lobe up to 1.1 cm with a patchy foci in the lingula and the left lower lobe. He required a cardiac bypass graft surgery on 05/19/2014. Preoperative staging PET/CT was reportedly performed, but results were not available. He then underwent left hemicolectomy on 07/03/2014. His surgical pathology revealed 6 x 5 cm low-grade adenocarcinoma, invading through muscularis propria into the subserosal adipose tissue. Two tumor deposits were present on the pericolonic adipose tissue. None of the 24 lymph nodes harvested were involved with metastatic disease. No lymphovascular or perineural invasion was identified. Luminal obstruction of more than 70% was present. Margins were negative. Thus, his disease was pathologic stage at least IIIB (pT3, N1c, MX). Mismatch repair analysis was normal, without defect identified. The patient had relocated to [place] from [place], to be closer to his daughter. He moved to the [facility] in August 2014 and established care with the [facility] in [place]. 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 He was first seen by Dr. Vivas on 03/27/2015. His case was presented on the tumor board, consensus was to offer an adjuvant chemotherapy. In interim he had a CT of the chest/abdomen/pelvis on 04/10/2014 which showed increase in the two left lung nodules to 1.8 and 1.69 cm, concerning for metastatic disease. PET/CT on 05/05/2015 confirmed FDG positive two nodules in the left lung. A CT-guided biopsy on 06/11/2015 showed suspicious cells for malignancy, with only scant specimen available. Thus his disease was stage IV (M1b). Palliative FOLFOX and Avastin was recommended and was planned, but the patient decided against palliative chemotherapy. In the meantime, K-kylah mutation was performed on the original biopsy, and mutations were not detected. He was then followed on observation/symptomatic management. Restaging CT scans of the chest, abdomen, and pelvis on 07/24/2016 showed increasing size left pulmonary nodules/mass with the largest mass of the left lung base measuring 3.1 x 2.6 cm. Overall, four nodules were present with continued slow progression since April 2015 study. I had seen him for a follow-up visit in October 2016. He was still not interested in attempting any chemotherapy treatment, and he then failed to return for further follow-up. On 03/15/2018 he presented to the emergency room with back pain. He had evaluation at that time with lumbar spine CT, which showed no acute findings. He was diagnosed with acute left-sided sciatica and treated symptomatically. He returned to the emergency room on 03/28/2018. His renal CT at that time showed a partially obstructing 4 x 5 mm ureteral calculus at the left ureteropelvic junction. Other findings included prominent portal and celiac lymph nodes, a mass adjacent to the caudate lobe of the liver measuring 2.3 cm, and a low-attenuation lesion in the hepatic dome which appeared suspicious for a metastatic lesion. Also noted were enlarging pulmonary masses in the left lower lobe. Dr Dr Castillo had seen him for a follow-up visit on 04/13/2018. At that point, Dr Castillo did request further evaluation with a next generation sequencing study. It showed no actionable mutations. The tumor was noted to be MSI stable. He continued observation/expectant management for the colon cancer. However, he was still having problems related to the kidney stone. He had continued follow-up with Dr. Mckeon and on 06/14/2018 he underwent extracorporeal shockwave lithotripsy for the left distal ureteral stone. He required temporary ureteral stent placement. He had no complications with the procedure, and the stent was later removed. At his follow-up visit on 04/29/2019 his CEA level had increased to 21.7 ng/mL compared to 8.9 ng/mL in April 2018. However, he was still not interested in considering any treatment. He was then seen for a follow-up visit again on 10/27/2019. At that point his CEA had further increased to 41.4 ng/mL. He then had restaging CT scans of the chest, abdomen, and pelvis on 11/07/2019. Those studies showed significant progression of metastatic disease with increasing pulmonary nodules in both lungs, the largest in the left upper lobe measuring 3.5 x 2.9 cm and in the left lower lobe measuring 4.6 x 4.9 cm. There was progression of metastatic lesions in the right hepatic lobe, the largest measuring 4.3 x 3.4 cm in the dome of the liver and 4.8 cm in the right hepatic lobe laterally. Also noted were multiple enlarged partially calcified lymph nodes in the love hepatis and celiac axis, bulky enlarged retrocrural and gastroesophageal lymph nodes, and bulky periaortic and retroperitoneal lymph nodes, all new from previous studies. With those findings he did opt to begin a trial of therapy with panitumumab as a single agent. He began cycle 1 on 11/17/2019. His further treatment was then put on hold due to a severe skin eruption, which developed despite having been given dexamethasone prophylaxis. During follow-up his rash slowly improved, and during that time there was a significant decline in his CEA level. As such, he opted to continue treatment, and he restarted panitumumab on 01/12/2020 with the dosage reduced to 2 mg/kg by IV infusion. He tolerated it with acceptable toxicity and he continued treatment at 2-week intervals. As of 02/07/2020 his CEA level had decreased to 18.9 ng/mL, and it then stabilized. Restaging CT scans on 04/13/2020 showed multiple metastatic pulmonary nodules throughout both lungs, with the size and number relatively unchanged compared to the December 2019 study. Heterogeneous and partially calcified metastatic lesions of both hepatic lobes also appeared stable, as did his bulky upper abdominal lymphadenopathy. Previously described tiny left pericolic gutter metastatic lesions appear to have resolved. A lytic lesion in the right iliac wing was noted to be stable. With those findings, he continued the panitumumab monotherapy at 2-week intervals. However, following his treatment on 05/15/2020 the panitumumab was put on hold due to worsening skin eruption and other side effects. He had continued with cycle 14 of panitumumab on 07/03/2020. However, at that point his CEA level had increased significantly, to 30.4 ng/mL, and I then opted to stop that treatment. His other medical illnesses include hypertension, hyperlipidemia, type II diabetes, and coronary artery disease. He has a history of smoking a pack and a half of cigarettes daily for 30 years, but he quit smoking more than 10 years ago. INTERIM HISTORY: On 09/04/2020 he began cycle 1 of 2nd line treatment with FOLFIRI chemotherapy in combination with Avastin. His baseline CEA level was 52.8 ng/mL. He reported increased fatigue and somnolence following that treatment. He did not experience any other toxicity acutely. At his follow-up visit on 09/18/2020 he continued to report severe fatigue and he opted to delay any further chemotherapy. He was not having diarrhea. Four days later he was taken to the emergency room after his daughter found him unresponsive at home. When she was able to arouse him she thought he was not moving his right arm and leg, and on that basis it was suspected he might be having an acute stroke. However, in the emergency room he was found to be significantly hypoglycemic. He was admitted to the hospital. His brain MRI showed no acute infarct or hemorrhage and no evidence of metastatic disease. He was discharged home on 09/25/2020. As of his follow-up visit on 11/20/2020 is performance status was still very marginal, and his chemotherapy remained on hold, and he continued on observation/symptomatic management. Restaging CT scans of the chest, abdomen, and pelvis on 12/14/2020 showed significant increase in size and number of metastatic sites throughout both lungs. The largest was in the left lower lobe abutting the pleura, measuring 7.9 x 6.6 x 5.2 cm. There was also progression of metastatic disease within the liver. Enhancing subcutaneous intramuscular nodules within the left abdominal wall were also suspicious for metastatic sites. A new left supraclavicular lymph node measuring 12 mm was highly suspicious for metastasis. Mr Braga was offered palliative chemotherapy with modified FOLFOX/Avastin. He began his first cycle on 12/31/2020. He has tolerated relatively well with the exception of intermittent diarrhea and cold induced neuropathy. He is jovial and pleasant today. Mr. Braga is here today for follow-up and consideration of cycle three FOLFOX Avastin. His last treatment was on 01/14/2021. He did receive hydration with his pump removal and tolerated this well. He reports overall he feels pretty good. He has had slight nausea off and on but states that he had bad diarrhea at this last cycle . He states the diarrhea is just now starting to light up some but he still having to take Imodium once or twice a day. He has had up to 4-5 loose stools daily. He states that the diarrhea is been so bad is not been going out to see his friends. He denies any pain. He has had no fever or chills. He denies nausea severe enough for emesis but states he has required his antiemetics once or twice but that always takes care of the problem. He denies any mouth sores, sore throat or difficulty swallowing. He denies any new shortness of breath orthopnea. He denies any syncope, lightheadedness, chest pain or palpitations. His ECOG today is 1. He states he has had some cold-induced neuropathy with the oxaliplatin but that is essentially gone although somewhat residual in his fingertips. He states that it is not problematic at this time. Past Medical History: Coronary artery disease Diabetes type I Hyperlipidemia Hypertension Sleep Apnea in 2016 Past Surgical History: Appendectomy Cataract excision Cholecystectomy Colonoscopy Coronary artery bypass PORT PLACEMENT DR. ABIMBOLA Peter vaccine #2 in 2020 Allergies: Penicillin V Potassium Medications: Aspirin 1 Tablet (of 81 mg) Tablet, chewable Oral daily Atorvastatin Calcium (40 mg) Tablet Oral daily Clopidogrel Bisulfate (75 mg) Tablet Oral daily Magnesium (400 mg) Tablet Oral daily Ondansetron 1 Tablet (of 4 mg) Tablet Dispersable Oral q 4 hours PRN Vitamin D3 1 (2000 Units) Tablet Oral daily Family History: Mr. Braga's mother is . Mr. Braga's father is . unknown family history, brother with history of heart disease. Social History: Mr. Braga is and he is retired. Mr. Braga quit smoking 12 years ago but had smoked 1.5 packs/day for 30 years. He has indicated exposure to the following products: cigarettes. Mr. Braga reports the following support systems: lives alone, lives in own house, supportive family/friends willing to assist with needs, and adequate transportation available for expected visits. His diet consists of regular meals. He indicates his activity level as: daily activities. Review Of Symptoms: <See Above> Vital Signs: Performed on Jan 28, 2021 09:21 Height - 67.00 in Weight - 184.4 lbs (HIGH) BSA - 1.95 sq.m BMI - 28.88 Temperature - 98.3 F (LOW) Pulse - 82 /min Respiration - 18 /min BP - 113/68 mm(hg) O2 Sat - 99 % Pain - 0 Fatigue - 5,1 - No physically strenuous activity, but ambulatory and able to carry out light or sedentary work (e.g. office work, light house work). (ECOG) Physical Examination: Constitutional Alert, oriented, no acute distress. Skin pink, warm and dry. He is pleasant and somewhat jovial today. Head Normocephalic; atraumatic. Eyes Conjunctivae and sclerae are clear and without icterus. Pupils are reactive and equal. Neck Supple without masses or thyromegaly. No jugular venous distension. Hematologic/Lymphatic No petechiae or purpura. No tender or palpable lymph nodes in the cervical or supraclavicular areas. Respiratory Lungs are clear to auscultation without rhonchi or wheezing. Cardiovascular Regular rate and rhythm of heart without murmurs,clicks, gallops or rubs. Chest Left subclavian Port-A-Cath site has healed well. It is unremarkable. Abdomen Non-tender, non-distended, no masses, ascites. Bowel sounds noted in all quads. Back/Spine Non-tender to palpation. Extremities No visible deformities, no cyanosis, clubbing or edema. Musculoskeletal No tenderness or swelling, normal range of motion without obvious weakness. Integumentary No rashes or lesions. Neurologic No sensory or motor deficits, normal cerebellar function, assisted gait-walking with walker today for stability per his report. Psychiatric Alert and oriented times three. Coherent speech. Verbalizes understanding of our discussions today. Laboratory:Test performed on Jan 28, 2021 08:15 Ferritin 300 ng/mL Iron 53 mcg/dL Sodium 139 mmol/L Iron Binding Capacity (TIBC) 275 mcg/dl Potassium 4.2 mmol/L % Iron Saturation 19.2 % Chloride 106 mmol/L CO2 23 mmol/L UIBC 222 mcg/dL Anion Gap 14.2 BUN 12 mg/dL Creatinine 1.1 mg/dL Cr Clearance (Est) 74.6900 mL/min Glucose 73 mg/dL Osmolality - Calculated 286 mOsm/kg Calcium 8.9 mg/dL Protein, Total 7.2 g/dL Albumin 3.6 g/dL Globulin 3.6 g/dL Bilirubin, Total 0.4 mg/dL ALT (SGPT) 7 U/L AST (SGOT) 14 U/L Alkaline Phosphatase 77 IU/L WBC 6.3 10 3/uL RBC 4.92 10 6/uL HGB 11.7 g/dL HCT 38.4 % MCV 78.0 fl MCH 23.8 pg MCHC 30.5 g/dL RDW 18.5 % Platelet Count 113 10 3/cmm MPV 9.9 fL Neutrophils 3.44 10 3/uL Lymphocytes 1.6 10 3/uL Monocytes 0.8 10 3/uL Eosinophils 0.3 10 3/uL Basophils 0.1 10 3/uL Neutrophil % 54.9 % Lymphocyte % 25.9 % Monocyte % 12.5 % Eosinophil % 4.6 % Basophils % 1.8 % NRBC % 0 % CEA 105.7 ng/mL Test performed on Dec 31, 2020 09:03 Est Avg Glucose (eAG) 114 mg/dL Hemoglobin A1C % 5.6 % Test performed on Sep 28, 2020 00:00 Manual Lymphocytes 13.0 % Manual Monocytes 5.0 % Manual Eosinophils 1.0 % Manual Basophils 0 % Test performed on Sep 26, 2020 15:05 Magnesium 1.8 mg/dL CBC Slide Review Slide Review Perform Test performed on Sep 10, 2020 08:15 Ua Color Yellow Ua Appearance Clear Ua Glucose Norm Ua Bilirubin Neg Ua Ketones Negative Ua Specific [place] 1.020 Ua Blood Neg Ua pH 5 Ua Protein Neg Ua Nitrites Negative Ua Leukocyte Esterase Negative Impression: 1. Low-grade adenocarcinoma of the distal sigmoid colon, stage IV (T3, N1c, M1b). He underwent left hemicolectomy on 07/03/2014. During subsequent follow-up he had enlarging, FDG avid pulmonary nodules, consistent with metastatic disease. He initially opted to have just symptomatic/supportive care. 2. He had non-ST elevation myocardial infarction at initial presentation, and he did require coronary artery bypass surgery prior to the colon resection. 3. Hypertension. 4. Hyperlipidemia. 5. Type II diabetes. 6. Nephrolithiasis. He underwent extracorporeal shockwave lithotripsy for a left distal ureteral stone in June 2018. Plan/Problems Addressed at this Visit: A. low-grade adenocarcinoma of the sigmoid colon, stage IV, with multiple pulmonary metastases and with metastatic involvement in the liver and upper abdominal lymph nodes. He began panitumumab monotherapy in November 2019. During treatment there was a significant decline in his CEA level but with his restaging CT scans showing stable findings. Following his treatment on 05/15/2020 the panitumumab was put on hold due to worsening skin eruption and declining performance status. At that point his CEA level was stable at 13.0 ng/mL. As of his follow-up visit on 07/03/2020 there was a significant increase in the CEA level to 30.4 ng/mL. At that point it was opted to stop any further treatment with panitumumab. He ultimately agreed to a trial of second line therapy with FOLFIRI chemotherapy in combination with Avastin. He began cycle 1 on 09/04/2020. His baseline CEA level was 52.8 ng/mL. He has had worsening fatigue/somnolence following that treatment, and as of his follow-up visit on 09/18/2020 he opted to delay any further chemotherapy. At that point he was not having diarrhea or other obvious chemotherapy related toxicities. However, 4 days later he was admitted to the hospital after he became severely hypoglycemic at home. There was some suspicion that also he may have had an acute stroke, but in retrospect that appears to have been unlikely. As of his follow-up visit on 11/20/2020 he still had fairly marginal performance status, and his chemotherapy remained on hold. His restaging CT scans on 12/14/2020 showed progression of bilateral pulmonary metastases and progression of metastatic involvement in the liver. The CT findings reviewed with the patient and his daughter per Dr Castillo. He discussed options for further management. He has had disease progression on panitumumab monotherapy and subsequently on irinotecan-based chemotherapy. He will still have the option of an oxaliplatin-based chemotherapy regimen, and in his situation, Dr Castillo did recommend a modified FOLFOX regimen in combination with Avastin. He was agreeable to a trial of the chemotherapy and was started at a reduced dose and began his first cycle on December 31, 2020. He has tolerated it well overall. 1. HOLD cycle 3 FOLFOX Avastin due to persistent diarrhea, not currently resolved. 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 He did go to 65 mg per metered squared. His 5-FU and Avastin dosing remained the same. 2. He will continue the same antiemetics as these are working well for him. We will refill his prochlorperazine to his local pharmacy. 3. Today's labs were reviewed in detail and discussed with Mr. Braga and a copy was given to him. WBC 6.3, hemoglobin 11.7, platelets one 13,000, ANC is 3440. Sodium 139, potassium 4.2 random glucose 73 creatinine 1.1 and LFTs are normal. His CEA today is 105.7 compared to 80.5 on 12/11/2020 and 65.1 on 11/20/2020. His last hemoglobin A1c was on 12/31/2020 reported at 5.6. 4. His last iron studies were on November 20 at which time his iron saturation was 26%. His iron sat was 13.3%. His iron has not been repeated since that test. 5. Plan to see him back in 2 weeks with CBC CMP UA for Avastin monitoring and repeat follow-up iron studies to include ferritin TIBC. He is currently taking 1 iron supplement a day he may be able to tolerate 2 but may also benefit from IV iron if he is not having much success with the oral tablets. 6. We did discuss that the neuropathy may improve with dose reduction it may worsen with dose reduction will just need to monitor him and see. He has completed 2 doses of the oxaliplatin. 7. Mr. Braga was instructed to try taking antidiarrheal just prior to or with meals to see if this will delay the diarrhea episodes he is complaining of about an hour to hour and half after he eats. It is noted that his weight is stable since his last visit. 8. We will plan to see him back as scheduled unless otherwise needed. Mr. Braga was encouraged to let us know in the interim should questions or problems arise. Addendum Mr. Braga was given supportive care hydration/antiemetics instead of his planned chemotherapy day given his persistent diarrhea and his creatinine at 1.1. He tolerated it well. Signed By: Philip Oscar-, AOCNP Xiang Castillo MD <<Signature on File>>
== END 2021-02-03 23:59 | disposition home or self-care (01) ==
LOC: ONCMED 06:20
PROVIDERS: Nurse Practitioner; PCP Family Medicine; Visit Provider Internal Medicine Medical Oncology
DX: Z51.11 Encounter for antineoplastic chemotherapy (principal); C18.7 Malignant neoplasm of sigmoid colon; C78.01 Secondary malignant neoplasm of right lung; C78.02 Secondary malignant neoplasm of left lung; I25.2 Old myocardial infarction; I25.10 Atherosclerotic heart disease of native coronary artery without angina pectoris; Z95.5 Presence of coronary angioplasty implant and graft; I10 Essential (primary) hypertension; E78.5 Hyperlipidemia, unspecified; E11.59 Type 2 diabetes mellitus with other circulatory complications; Z87.442 Personal history of urinary calculi; Z79.899 Other long term (current) drug therapy
CPT/HCPCS: 80053; 82378; 82728; 83540; 83550; 85025; 96360; 96361; 96365; 96367; 96368; 96375; 96413; 96415; 96416; 96417; 99215; J0640; J1100; J2469; J3490; J7030; J9035; J9190; J9263

== ENCOUNTER 2021-02-13 05:39 | Outpatient (RCR) | payer MEDICARE, OTHER, SELFPAY ==
[2021-02-11 09:23] LABS: Add Urine Microscopic? NO; Charge for UA Resulting for Rev
[2021-02-11 09:28] LABS: Basophils # 0.1 10^3/uL (0.0-0.1); Basophils % 1.3 %; Eosinophils # 0.3 10^3/uL (0.0-0.8); Eosinophils % 3.8 %; Hematocrit 41.1 % (42.0-52.0); Hemoglobin 12.9 g/dL (11.7-16.6); Lymphocytes # 1.7 10^3/uL (0.8-4.8); Lymphocytes % 19.6 %; Mean Corpuscular HGB Conc 31.4 g/dL (30.0-36.0); Mean Corpuscular Hemoglobin 24.3 pg (28.0-34.0); Mean Corpuscular Volume 77.4 fl (80-94); Mean Platelet Volume 10.1 fL (7.4-10.4); Monocytes # 0.7 10^3/uL (0.2-0.9); Monocytes % 8.7 %; Neutrophils # 5.64 10^3/uL (1.8-7.7); Neutrophils % 66.4 %; Nucleated Red Blood Cells % 0 %; Platelet Count 149 10^3/cmm (130-400); Red Blood Count 5.31 10^6/uL (4.1-5.3); Red Cell Distribution Width 20.7 % (12.1-15.1); White Blood Count 8.5 10^3/uL (4.0-10.0)
[2021-02-11 09:44] LABS: Alanine Aminotransferase 7 U/L (0-41); Albumin Level 3.9 g/dL (3.5-5.2); Alkaline Phosphatase 77 IU/L (40-130); Anion Gap 13.3 (5-19); Aspartate Amino Transferase 15 U/L (0-40); Blood Urea Nitrogen 11 mg/dL (8-23); Calcium 8.9 mg/dL (8.5-10.5); Carbon Dioxide 23 mmol/L (22-29); Chloride 105 mmol/L (98-107); Globulin 3.7 g/dL (1.3-4.6); Glucose 79 mg/dL (65-115); Osmolality Calculated 282 mOsm/kg (285-295); Potassium 4.3 mmol/L (3.5-5.1); Sodium 137 mmol/L (136-145); Total Bilirubin 0.6 mg/dL (0.15-1.2); Total Protein 7.6 g/dL (6.6-8.7)
[2021-02-11 10:20] LABS: Bilirubin Urine Neg (Negative); Blood Urine Neg (Negative); Glucose Urine UA Norm (Normal); Ketones Urine Negative (Negative); Leukocyte Esterase Urine Negative (Negative); Nitrate Urine Negative (Negative); Protein Urine Neg (Negative); Specific Gravity, Urine 1.025 (1.005-1.030); Urine Appearance Clear (CLEAR); Urine Color Yellow (Yellow); Urobilinogen Urine Norm (Negative); pH Urine 5 (5-7)
[2021-02-11] MEDS: palonosetron 0.25 mg/5 mL SDV IV (11:30)
[2021-02-11] MEDS: dextrose 5% 250 ML 75 ML IV (11:30)
[2021-02-11 11:59] LABS: Carcinoembryonic Antigen 112.3 ng/mL (0.0-4.7)
--- NOTE | 2021-02-11 18:49 | ONC FU_ITS ---
Dr. Castillo Patient Follow-Up Note Patient: Gulshan Braga Unit #: [id number]: 1950 Dicatated By: Xiang Castillo M.D.Date of Visit:Feb 11, 2021 Onc Med Follow-up/Prog Note Chief Complaint: Colon cancer. 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 He had presented with influenza pneumonia and non-ST elevation [place]. During anticoagulation in preparation for coronary artery bypass graft surgery he develop significant rectal bleeding. A CT of the abdomen and pelvis on 05/11/2014 showed a mass in the distal sigmoid colon with soft tissue stranding, but no evidence of disease in the liver. There were 2 discrete nodules in the left lower lobe up to 1.1 cm with a patchy foci in the lingula and the left lower lobe. He required a cardiac bypass graft surgery on 05/19/2014. Preoperative staging PET/CT was reportedly performed, but results were not available. He then underwent left hemicolectomy on 07/03/2014. His surgical pathology revealed 6 x 5 cm low-grade adenocarcinoma, invading through muscularis propria into the subserosal adipose tissue. Two tumor deposits were present on the pericolonic adipose tissue. None of the 24 lymph nodes harvested were involved with metastatic disease. No lymphovascular or perineural invasion was identified. Luminal obstruction of more than 70% was present. Margins were negative. Thus, his disease was pathologic stage at least IIIB (pT3, N1c, MX). Mismatch repair analysis was normal, without defect identified. The patient had relocated to [place] from [place], to be closer to his daughter. He moved to the [facility] in August 2014 and established care with the [facility] in [place]. His ui developer is Dr. Lomas. He was first seen by Dr. Vivas on 03/27/2015. His case was presented on the tumor board, consensus was to offer an adjuvant chemotherapy. In interim he had a CT of the chest/abdomen/pelvis on 04/10/2014 which showed increase in the two left lung nodules to 1.8 and 1.69 cm, concerning for metastatic disease. PET/CT on 05/05/2015 confirmed FDG positive two nodules in the left lung. A CT-guided biopsy on 06/11/2015 showed suspicious cells for malignancy, with only scant specimen available. Thus his disease was stage IV (M1b). Palliative FOLFOX and Avastin was recommended and was planned, but the patient decided against palliative chemotherapy. In the meantime, K-kylah mutation was performed on the original biopsy, and mutations were not detected. He was then followed on observation/symptomatic management. Restaging CT scans of the chest, abdomen, and pelvis on 07/24/2016 showed increasing size left pulmonary nodules/mass with the largest mass of the left lung base measuring 3.1 x 2.6 cm. Overall, four nodules were present with continued slow progression since April 2015 study. I had seen him for a follow-up visit in October 2016. He was still not interested in attempting any chemotherapy treatment, and he then failed to return for further follow-up. On 03/15/2018 he presented to the emergency room with back pain. He had evaluation at that time with lumbar spine CT, which showed no acute findings. He was diagnosed with acute left-sided sciatica and treated symptomatically. He returned to the emergency room on 03/28/2018. His renal CT at that time showed a partially obstructing 4 x 5 mm ureteral calculus at the left ureteropelvic junction. Other findings included prominent portal and celiac lymph nodes, a mass adjacent to the caudate lobe of the liver measuring 2.3 cm, and a low-attenuation lesion in the hepatic dome which appeared suspicious for a metastatic lesion. Also noted were enlarging pulmonary masses in the left lower lobe. I had seen him for a follow-up visit on 04/13/2018. At that point I did request further evaluation with a next generation sequencing study. It showed no actionable mutations. The tumor was noted to be MSI stable. He continued observation/expectant management for the colon cancer. However, he was still having problems related to the kidney stone. He had continued follow-up with Dr. Mckeon and on 06/14/2018 he underwent extracorporeal shockwave lithotripsy for the left distal ureteral stone. He required temporary ureteral stent placement. He had no complications with the procedure, and the stent was later removed. At his follow-up visit on 04/29/2019 his CEA level had increased to 21.7 ng/mL compared to 8.9 ng/mL in April 2018. However, he was still not interested in considering any treatment. He was then seen for a follow-up visit again on 10/27/2019. At that point his CEA had further increased to 41.4 ng/mL. He then had restaging CT scans of the chest, abdomen, and pelvis on 11/07/2019. Those studies showed significant progression of metastatic disease with increasing pulmonary nodules in both lungs, the largest in the left upper lobe measuring 3.5 x 2.9 cm and in the left lower lobe measuring 4.6 x 4.9 cm. There was progression of metastatic lesions in the right hepatic lobe, the largest measuring 4.3 x 3.4 cm in the dome of the liver and 4.8 cm in the right hepatic lobe laterally. Also noted were multiple enlarged partially calcified lymph nodes in the love hepatis and celiac axis, bulky enlarged retrocrural and gastroesophageal lymph nodes, and bulky periaortic and retroperitoneal lymph nodes, all new from previous studies. With those findings he did opt to begin a trial of therapy with panitumumab as a single agent. He began cycle 1 on 11/17/2019. His further treatment was then put on hold due to a severe skin eruption, which developed despite having been given dexamethasone prophylaxis. During follow-up his rash slowly improved, and during that time there was a significant decline in his CEA level. As such, he opted to continue treatment, and he restarted panitumumab on 01/12/2020 with the dosage reduced to 2 mg/kg by IV infusion. He tolerated it with acceptable toxicity and he continued treatment at 2-week intervals. As of 02/07/2020 his CEA level had decreased to 18.9 ng/mL, and it then stabilized. Restaging CT scans on 04/13/2020 showed multiple metastatic pulmonary nodules throughout both lungs, with the size and number relatively unchanged compared to the December 2019 study. Heterogeneous and partially calcified metastatic lesions of both hepatic lobes also appeared stable, as did his bulky upper abdominal lymphadenopathy. Previously described tiny left pericolic gutter metastatic lesions appear to have resolved. A lytic lesion in the right iliac wing was noted to be stable. With those findings, he continued the panitumumab monotherapy at 2-week intervals. However, following his treatment on 05/15/2020 the panitumumab was put on hold due to worsening skin eruption and other side effects. He had continued with cycle 14 of panitumumab on 07/03/2020. However, at that point his CEA level had increased significantly, to 30.4 ng/mL, and I then opted to stop that treatment. His other medical illnesses include hypertension, hyperlipidemia, type II diabetes, and coronary artery disease. He has a history of smoking a pack and a half of cigarettes daily for 30 years, but he quit smoking more than 10 years ago. INTERIM HISTORY: On 09/04/2020 he began cycle 1 of 2nd line treatment with FOLFIRI chemotherapy in combination with Avastin. His baseline CEA level was 52.8 ng/mL. He reported increased fatigue and somnolence following that treatment. He did not experience any other toxicity acutely. At his follow-up visit on 09/18/2020 he continued to report severe fatigue and he opted to delay any further chemotherapy. He was not having diarrhea. Four days later he was taken to the emergency room after his daughter found him unresponsive at home. When she was able to arouse him she thought he was not moving his right arm and leg, and on that basis it was suspected he might be having an acute stroke. However, in the emergency room he was found to be significantly hypoglycemic. He was admitted to the hospital. His brain MRI showed no acute infarct or hemorrhage and no evidence of metastatic disease. He was discharged home on 09/25/2020. As of his follow-up visit on 11/20/2020 is performance status was still very marginal, and his chemotherapy remained on hold, and he continued on observation/symptomatic management. Restaging CT scans of the chest, abdomen, and pelvis on 12/14/2020 showed significant increase in size and number of metastatic sites throughout both lungs. The largest was in the left lower lobe abutting the pleura, measuring 7.9 x 6.6 x 5.2 cm. There was also progression of metastatic disease within the liver. Enhancing subcutaneous intramuscular nodules within the left abdominal wall were also suspicious for metastatic sites. A new left supraclavicular lymph node measuring 12 mm was highly suspicious for metastasis. I had seen him for a follow-up visit on 12/24/2020. At that time, he desired to continue further treatment. He returned on 12/31/2020 to begin a trial of therapy with a modified FOLFOX regimen in combination with Avastin. Both the oxaliplatin and 5-FU were administered at reduced dosages. He tolerated the 1st cycle pretty well and he continued with cycle 2 on 01/14/2021. His further treatment was then delayed due to neuropathy. He is seen for a follow-up visit. He has been feeling reasonably good from a general standpoint, but he does complain that his fingers feel cold and he has having some numbness in both hands. His energy, though, is pretty good. He has been doing a lot of walking and he is able to do light work at home. ECOG score is 1. Appetite is variable. He does not have fever or night sweats. He has having a some sinus drainage, he thinks he may be getting a slight cold. He has not had sore mouth or throat. He does not complain of cough, and he is breathing has been okay. He does not complain of chest pain. He has been having some postprandial loose stools. He has no other GI or complaints. He has some pain in his right shoulder. He does not complain of headache or dizziness. Medications: Aspirin 1 Tablet (of 81 mg) Tablet, chewable Oral daily, Atorvastatin Calcium (40 mg) Tablet Oral daily, Clopidogrel Bisulfate (75 mg) Tablet Oral daily, Magnesium (400 mg) Tablet Oral daily, Ondansetron 1 Tablet (of 4 mg) Tablet Dispersable Oral q 4 hours PRN, Vitamin D3 1 (2000 Units) Tablet Oral daily Allergies: Penicillin V Potassium Vital Signs: Performed on Feb 11, 2021 10:51 Height - 67.00 in Weight - 181.8 lbs (LOW) BSA - 1.94 sq.m BMI - 28.47 Temperature - 98.6 F Pulse - 76 /min Respiration - 18 /min BP - 156/92 mm(hg) (HIGH) O2 Sat - 99 % Pain - 0 Fatigue - 5 Physical Examination: Constitutional - He appears somewhat weak generally, Eyes - Sclerae nonicteric. Conjunctivae clear, ENMT - No lesions noted in the oral cavity, Hematologic/Lymphatic - No cervical, clavicular, or axillary adenopathy, Respiratory - Lungs sound clear, Cardiovascular - Heart rhythm is irregular. There is a II/ systolic murmur. There is no gallop or rub noted, Abdomen - Mildly distended but soft. Liver and spleen are not enlarged. There is no abdominal mass or ascites noted and there is no inguinal adenopathy, Extremities - No edema. His fingers feel cool to touch, but he has 2+ radial pulses bilaterally, Neurologic - No focal neurologic deficits noted. Lab/Imaging: Test performed on Feb 11, 2021 09:01 Sodium 137 mmol/L Potassium 4.3 mmol/L Chloride 105 mmol/L CO2 23 mmol/L Anion Gap 13.3 BUN 11 mg/dL Creatinine 0.8 mg/dL Cr Clearance (Est) 102.7000 mL/min Glucose 79 mg/dL Osmolality - Calculated 282 mOsm/kg Calcium 8.9 mg/dL Protein, Total 7.6 g/dL Albumin 3.9 g/dL Globulin 3.7 g/dL Bilirubin, Total 0.6 mg/dL ALT (SGPT) 7 U/L AST (SGOT) 15 U/L Alkaline Phosphatase 77 IU/L WBC 8.5 10 3/uL RBC 5.31 10 6/uL HGB 12.9 g/dL HCT 41.1 % MCV 77.4 fl MCH 24.3 pg MCHC 31.4 g/dL RDW 20.7 % Platelet Count 149 10 3/cmm MPV 10.1 fL Neutrophils 5.64 10 3/uL Lymphocytes 1.7 10 3/uL Monocytes 0.7 10 3/uL Eosinophils 0.3 10 3/uL Basophils 0.1 10 3/uL Neutrophil % 66.4 % Lymphocyte % 19.6 % Monocyte % 8.7 % Eosinophil % 3.8 % Basophils % 1.3 % NRBC % 0 % CEA 112.3 ng/mL Problem List: 1. Low-grade adenocarcinoma of the distal sigmoid colon, stage IV (T3, N1c, M1b). He underwent left hemicolectomy on 07/03/2014. During subsequent follow-up he had enlarging, FDG avid pulmonary nodules, consistent with metastatic disease. He initially opted to have just symptomatic/supportive care. 2. He had non-ST elevation myocardial infarction at initial presentation, and he did require coronary artery bypass surgery prior to the colon resection. 3. Hypertension. 4. Hyperlipidemia. 5. Type II diabetes. 6. Nephrolithiasis. He underwent extracorporeal shockwave lithotripsy for a left distal ureteral stone in June 2018. Problems Addressed with this Encounter and Plan: Patient with low-grade adenocarcinoma of the sigmoid colon, stage IV, with multiple pulmonary metastases and with metastatic involvement in the liver and upper abdominal lymph nodes. He began panitumumab monotherapy in November 2019. During treatment there was a significant decline in his CEA level but with his restaging CT scans showing stable findings. Following his treatment on 05/15/2020 the panitumumab was put on hold due to worsening skin eruption and declining performance status. At that point his CEA level was stable at 13.0 ng/mL. As of his follow-up visit on 07/03/2020 there was a significant increase in the CEA level to 30.4 ng/mL. At that point I opted to stop any further treatment with panitumumab. He ultimately agreed to a trial of second line therapy with FOLFIRI chemotherapy in combination with Avastin. He began cycle 1 on 09/04/2020. His baseline CEA level was 52.8 ng/mL. He has had worsening fatigue/somnolence following that treatment, and as of his follow-up visit on 09/18/2020 he opted to delay any further chemotherapy. At that point he was not having diarrhea or other obvious chemotherapy related toxicities. However, 4 days later he was admitted to the hospital after he became severely hypoglycemic at home. There was some suspicion that also he may have had an acute stroke, but in retrospect that appears to have been unlikely. As of his follow-up visit on 11/20/2020 he still had fairly marginal performance status, and his chemotherapy remained on hold. His restaging CT scans on 12/14/2020 showed progression of bilateral pulmonary metastases and progression of metastatic involvement in the liver. The CT findings reviewed with the patient and his daughter, I also reviewed the CT images with them. We discussed options for further management. He decided to proceed with a trial of further chemotherapy with modified FOLFOX regimen in combination with Avastin. He began the first cycle on 12/31/2020. Both the oxaliplatin and the 5-FU were administered at reduced dosages. He initially tolerated it well, and he continued with cycle 2 on 01/14/2021. His further treatment was then put on hold due to neuropathy. At this point he continues to have some neuropathy, mainly in his hands. He is otherwise feeling pretty good generally. His CEA level appears to be at least stabilizing. As such, I will have him continue with cycle 3 of modified FOLFOX/Avastin. The dosages will remain the same, but I will continue to administer his treatment at 4-week intervals, provided that he tolerates it with acceptable toxicity and without evidence of disease progression. Signed By: Xiang Castillo M.D. <<Signature on File>>
[2021-02-13] MEDS: sodium chloride 0.9% 1,000 ML 999 ML IV (14:20)
== END 2021-03-05 23:59 | disposition home or self-care (01) ==
LOC: ONCMED 05:39
PROVIDERS: Internal Medicine Medical Oncology; PCP Family Medicine; Visit Provider Nurse Practitioner
DX: Z51.11 Encounter for antineoplastic chemotherapy (principal); C18.7 Malignant neoplasm of sigmoid colon; C78.01 Secondary malignant neoplasm of right lung; C78.02 Secondary malignant neoplasm of left lung; I25.2 Old myocardial infarction; E11.59 Type 2 diabetes mellitus with other circulatory complications; I25.10 Atherosclerotic heart disease of native coronary artery without angina pectoris; I10 Essential (primary) hypertension; E78.5 Hyperlipidemia, unspecified; N20.0 Calculus of kidney; Z79.899 Other long term (current) drug therapy
CPT/HCPCS: 80053; 81003; 82378; 85025; 96360; 96367; 96368; 96413; 96415; 96416; 96417; 99215; J0640; J1100; J2469; J7030; J9035; J9190; J9263

== ENCOUNTER 2021-03-13 06:20 | Outpatient (RCR) | payer MEDICARE, OTHER, SELFPAY ==
[2021-03-11 09:50] LABS: Basophils # 0.1 10^3/uL (0.0-0.1); Basophils % 1.4 %; Eosinophils # 0.3 10^3/uL (0.0-0.8); Eosinophils % 2.7 %; Hematocrit 43.2 % (42.0-52.0); Hemoglobin 13.5 g/dL (11.7-16.6); Lymphocytes # 1.9 10^3/uL (0.8-4.8); Lymphocytes % 20.9 %; Mean Corpuscular HGB Conc 31.3 g/dL (30.0-36.0); Mean Corpuscular Hemoglobin 24.8 pg (28.0-34.0); Mean Corpuscular Volume 79.4 fl (80-94); Mean Platelet Volume 10.7 fL (7.4-10.4); Monocytes # 0.9 10^3/uL (0.2-0.9); Monocytes % 10.1 %; Neutrophils # 5.88 10^3/uL (1.8-7.7); Neutrophils % 64.6 %; Nucleated Red Blood Cells % 0 %; Platelet Count 179 10^3/cmm (130-400); Red Blood Count 5.44 10^6/uL (4.1-5.3); Red Cell Distribution Width 21.3 % (12.1-15.1); White Blood Count 9.1 10^3/uL (4.0-10.0)
[2021-03-11 10:07] LABS: Carcinoembryonic Antigen 112.6 ng/mL (0.0-4.7)
[2021-03-11 10:18] LABS: Alanine Aminotransferase 7 U/L (0-41); Albumin Level 4.1 g/dL (3.5-5.2); Alkaline Phosphatase 74 IU/L (40-130); Anion Gap 20.1 (5-19); Aspartate Amino Transferase 14 U/L (0-40); Blood Urea Nitrogen 14 mg/dL (8-23); Calcium 8.5 mg/dL (8.5-10.5); Carbon Dioxide 18 mmol/L (22-29); Chloride 107 mmol/L (98-107); Globulin 3.3 g/dL (1.3-4.6); Glucose 91 mg/dL (65-115); Osmolality Calculated 292 mOsm/kg (285-295); Potassium 4.1 mmol/L (3.5-5.1); Sodium 141 mmol/L (136-145); Total Bilirubin 0.5 mg/dL (0.15-1.2); Total Protein 7.4 g/dL (6.6-8.7)
[2021-03-11] MEDS: dextrose 5% 250 ML 75 ML IV (11:39)
[2021-03-11] MEDS: palonosetron 0.25 mg/5 mL SDV IV (11:39)
[2021-03-11 11:46] LABS: Estmated Average Glucose 105; Hemoglobin A1C 5.3 % (4.0-6.0)
--- NOTE | 2021-03-11 18:23 | ONC FU_ITS ---
Dr. Castillo Patient Follow-Up Note Patient: Gulshan Braga Unit #: [id number]: 1950 Dicatated By: Xiang Castillo M.D.Date of Visit:Mar 11, 2021 Onc Med Follow-up/Prog Note Chief Complaint: Colon cancer. 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 He had presented with influenza pneumonia and non-ST elevation MT. During anticoagulation in preparation for coronary artery bypass graft surgery he develop significant rectal bleeding. A CT of the abdomen and pelvis on 05/11/2014 showed a mass in the distal sigmoid colon with soft tissue stranding, but no evidence of disease in the liver. There were 2 discrete nodules in the left lower lobe up to 1.1 cm with a patchy foci in the lingula and the left lower lobe. He required a cardiac bypass graft surgery on 05/19/2014. Preoperative staging PET/CT was reportedly performed, but results were not available. He then underwent left hemicolectomy on 07/03/2014. His surgical pathology revealed 6 x 5 cm low-grade adenocarcinoma, invading through muscularis propria into the subserosal adipose tissue. Two tumor deposits were present on the pericolonic adipose tissue. None of the 24 lymph nodes harvested were involved with metastatic disease. No lymphovascular or perineural invasion was identified. Luminal obstruction of more than 70% was present. Margins were negative. Thus, his disease was pathologic stage at least IIIB (pT3, N1c, MX). Mismatch repair analysis was normal, without defect identified. The patient had relocated to [place] from [place], to be closer to his daughter. He moved to the [facility] in August 2014 and established care with the [facility] in [place]. His deputy commissioner is Dr. Lomas. He was first seen by Dr. Vivas on 03/27/2015. His case was presented on the tumor board, consensus was to offer an adjuvant chemotherapy. In interim he had a CT of the chest/abdomen/pelvis on 04/10/2014 which showed increase in the two left lung nodules to 1.8 and 1.69 cm, concerning for metastatic disease. PET/CT on 05/05/2015 confirmed FDG positive two nodules in the left lung. A CT-guided biopsy on 06/11/2015 showed suspicious cells for malignancy, with only scant specimen available. Thus his disease was stage IV (M1b). Palliative FOLFOX and Avastin was recommended and was planned, but the patient decided against palliative chemotherapy. In the meantime, K-kylah mutation was performed on the original biopsy, and mutations were not detected. He was then followed on observation/symptomatic management. Restaging CT scans of the chest, abdomen, and pelvis on 07/24/2016 showed increasing size left pulmonary nodules/mass with the largest mass of the left lung base measuring 3.1 x 2.6 cm. Overall, four nodules were present with continued slow progression since April 2015 study. I had seen him for a follow-up visit in October 2016. He was still not interested in attempting any chemotherapy treatment, and he then failed to return for further follow-up. On 03/15/2018 he presented to the emergency room with back pain. He had evaluation at that time with lumbar spine CT, which showed no acute findings. He was diagnosed with acute left-sided sciatica and treated symptomatically. He returned to the emergency room on 03/28/2018. His renal CT at that time showed a partially obstructing 4 x 5 mm ureteral calculus at the left ureteropelvic junction. Other findings included prominent portal and celiac lymph nodes, a mass adjacent to the caudate lobe of the liver measuring 2.3 cm, and a low-attenuation lesion in the hepatic dome which appeared suspicious for a metastatic lesion. Also noted were enlarging pulmonary masses in the left lower lobe. I had seen him for a follow-up visit on 04/13/2018. At that point I did request further evaluation with a next generation sequencing study. It showed no actionable mutations. The tumor was noted to be MSI stable. He continued observation/expectant management for the colon cancer. However, he was still having problems related to the kidney stone. He had continued follow-up with Dr. Mckeon and on 06/14/2018 he underwent extracorporeal shockwave lithotripsy for the left distal ureteral stone. He required temporary ureteral stent placement. He had no complications with the procedure, and the stent was later removed. At his follow-up visit on 04/29/2019 his CEA level had increased to 21.7 ng/mL compared to 8.9 ng/mL in April 2018. However, he was still not interested in considering any treatment. He was then seen for a follow-up visit again on 10/27/2019. At that point his CEA had further increased to 41.4 ng/mL. He then had restaging CT scans of the chest, abdomen, and pelvis on 11/07/2019. Those studies showed significant progression of metastatic disease with increasing pulmonary nodules in both lungs, the largest in the left upper lobe measuring 3.5 x 2.9 cm and in the left lower lobe measuring 4.6 x 4.9 cm. There was progression of metastatic lesions in the right hepatic lobe, the largest measuring 4.3 x 3.4 cm in the dome of the liver and 4.8 cm in the right hepatic lobe laterally. Also noted were multiple enlarged partially calcified lymph nodes in the love hepatis and celiac axis, bulky enlarged retrocrural and gastroesophageal lymph nodes, and bulky periaortic and retroperitoneal lymph nodes, all new from previous studies. With those findings he did opt to begin a trial of therapy with panitumumab as a single agent. He began cycle 1 on 11/17/2019. His further treatment was then put on hold due to a severe skin eruption, which developed despite having been given dexamethasone prophylaxis. During follow-up his rash slowly improved, and during that time there was a significant decline in his CEA level. As such, he opted to continue treatment, and he restarted panitumumab on 01/12/2020 with the dosage reduced to 2 mg/kg by IV infusion. He tolerated it with acceptable toxicity and he continued treatment at 2-week intervals. As of 02/07/2020 his CEA level had decreased to 18.9 ng/mL, and it then stabilized. Restaging CT scans on 04/13/2020 showed multiple metastatic pulmonary nodules throughout both lungs, with the size and number relatively unchanged compared to the December 2019 study. Heterogeneous and partially calcified metastatic lesions of both hepatic lobes also appeared stable, as did his bulky upper abdominal lymphadenopathy. Previously described tiny left pericolic gutter metastatic lesions appear to have resolved. A lytic lesion in the right iliac wing was noted to be stable. With those findings, he continued the panitumumab monotherapy at 2-week intervals. However, following his treatment on 05/15/2020 the panitumumab was put on hold due to worsening skin eruption and other side effects. He had continued with cycle 14 of panitumumab on 07/03/2020. However, at that point his CEA level had increased significantly, to 30.4 ng/mL, and I then opted to stop that treatment. His other medical illnesses include hypertension, hyperlipidemia, type II diabetes, and coronary artery disease. He has a history of smoking a pack and a half of cigarettes daily for 30 years, but he quit smoking more than 10 years ago. INTERIM HISTORY: On 09/04/2020 he began cycle 1 of 2nd line treatment with FOLFIRI chemotherapy in combination with Avastin. His baseline CEA level was 52.8 ng/mL. He reported increased fatigue and somnolence following that treatment. He did not experience any other toxicity acutely. At his follow-up visit on 09/18/2020 he continued to report severe fatigue and he opted to delay any further chemotherapy. He was not having diarrhea. Four days later he was taken to the emergency room after his daughter found him unresponsive at home. When she was able to arouse him she thought he was not moving his right arm and leg, and on that basis it was suspected he might be having an acute stroke. However, in the emergency room he was found to be significantly hypoglycemic. He was admitted to the hospital. His brain MRI showed no acute infarct or hemorrhage and no evidence of metastatic disease. He was discharged home on 09/25/2020. As of his follow-up visit on 11/20/2020 is performance status was still very marginal, and his chemotherapy remained on hold, and he continued on observation/symptomatic management. Restaging CT scans of the chest, abdomen, and pelvis on 12/14/2020 showed significant increase in size and number of metastatic sites throughout both lungs. The largest was in the left lower lobe abutting the pleura, measuring 7.9 x 6.6 x 5.2 cm. There was also progression of metastatic disease within the liver. Enhancing subcutaneous intramuscular nodules within the left abdominal wall were also suspicious for metastatic sites. A new left supraclavicular lymph node measuring 12 mm was highly suspicious for metastasis. I had seen him for a follow-up visit on 12/24/2020. At that time, he desired to continue further treatment. He returned on 12/31/2020 to begin a trial of therapy with a modified FOLFOX regimen in combination with Avastin. Both the oxaliplatin and 5-FU were administered at reduced dosages. He tolerated the 1st cycle pretty well and he continued with cycle 2 on 01/14/2021. His further treatment was delayed due to neuropathy. He was then able to proceed with cycle 3 on 02/11/2021. At that point his CEA level had stabilized. Due to concerns with treatment related toxicity, I opted to continue his further chemotherapy at a 4-week interval. He is seen for a follow-up visit. He has been feeling okay, though he complains that he has no get up and go. He is still doing some light work. ECOG score is 1. Appetite is just so-so. His weight is down about 5 pounds. He does not have fever or night sweats. He has had no mouth sores. He has some shortness of breath, but he says his breathing has pretty decent. He does not complain of cough, and he has not been having chest pain. He has acid reflux with certain foods. He has not been having any nausea/vomiting. He still has diarrhea at times. Bladder function has been okay. He has some generalized soreness, which he attributes to the cold weather. He has neuropathy in his hands and feet. It has worsened with the cold weather. Medications: Aspirin 1 Tablet (of 81 mg) Tablet, chewable Oral daily, Atorvastatin Calcium (40 mg) Tablet Oral daily, Clopidogrel Bisulfate (75 mg) Tablet Oral daily, Magnesium (400 mg) Tablet Oral daily, Ondansetron 1 Tablet (of 4 mg) Tablet Dispersable Oral q 4 hours PRN, Vitamin D3 1 (2000 Units) Tablet Oral daily Allergies: Penicillin V Potassium Vital Signs: Performed on Mar 11, 2021 11:55 Height - 67.00 in Weight - 176.6 lbs (LOW) BSA - 1.92 sq.m BMI - 27.66 Temperature - 97.6 F (LOW) Pulse - 48 /min (LOW) Respiration - 18 /min BP - 125/75 mm(hg) O2 Sat - 99 % Pain - 0 Fatigue - 5 Physical Examination: Constitutional - He appears somewhat weak generally, Eyes - Sclerae nonicteric. Conjunctivae clear, ENMT - No lesions noted in the oral cavity, Hematologic/Lymphatic - No cervical, clavicular, or axillary adenopathy, Respiratory - Lungs sound clear, Cardiovascular - Heart rhythm is irregular. There is a II/ systolic murmur. There is no gallop or rub noted, Abdomen - Mildly distended but soft. Liver and spleen are not enlarged. There is no abdominal mass or ascites noted and there is no inguinal adenopathy, Extremities - No edema, Neurologic - No focal neurologic deficits noted. Lab/Imaging: Test performed on Mar 11, 2021 09:25 Sodium 141 mmol/L Potassium 4.1 mmol/L Chloride 107 mmol/L Est Avg Glucose (eAG) 105 mg/dL CO2 18 mmol/L Anion Gap 20.1 BUN 14 mg/dL Creatinine 1.0 mg/dL Cr Clearance (Est) 76.77 mL/min Glucose 91 mg/dL Osmolality - Calculated 292 mOsm/kg Calcium 8.5 mg/dL Protein, Total 7.4 g/dL Albumin 4.1 g/dL Globulin 3.3 g/dL Bilirubin, Total 0.5 mg/dL ALT (SGPT) 7 U/L AST (SGOT) 14 U/L Alkaline Phosphatase 74 IU/L Hemoglobin A1C % 5.3 % WBC 9.1 10 3/uL RBC 5.44 10 6/uL HGB 13.5 g/dL HCT 43.2 % MCV 79.4 fl MCH 24.8 pg MCHC 31.3 g/dL RDW 21.3 % Platelet Count 179 10 3/cmm MPV 10.7 fL Neutrophils 5.88 10 3/uL Lymphocytes 1.9 10 3/uL Monocytes 0.9 10 3/uL Eosinophils 0.3 10 3/uL Basophils 0.1 10 3/uL Neutrophil % 64.6 % Lymphocyte % 20.9 % Monocyte % 10.1 % Eosinophil % 2.7 % Basophils % 1.4 % NRBC % 0 % CEA 112.6 ng/mL Problem List: 1. Low-grade adenocarcinoma of the distal sigmoid colon, stage IV (T3, N1c, M1b). He underwent left hemicolectomy on 07/03/2014. During subsequent follow-up he had enlarging, FDG avid pulmonary nodules, consistent with metastatic disease. He initially opted to have just symptomatic/supportive care. 2. He had non-ST elevation myocardial infarction at initial presentation, and he did require coronary artery bypass surgery prior to the colon resection. 3. Hypertension. 4. Hyperlipidemia. 5. Type II diabetes. 6. Nephrolithiasis. He underwent extracorporeal shockwave lithotripsy for a left distal ureteral stone in June 2018. Problems Addressed with this Encounter and Plan: Patient with low-grade adenocarcinoma of the sigmoid colon, stage IV, with multiple pulmonary metastases and with metastatic involvement in the liver and upper abdominal lymph nodes. He began panitumumab monotherapy in November 2019. During treatment there was a significant decline in his CEA level but with his restaging CT scans showing stable findings. Following his treatment on 05/15/2020 the panitumumab was put on hold due to worsening skin eruption and declining performance status. At that point his CEA level was stable at 13.0 ng/mL. As of his follow-up visit on 07/03/2020 there was a significant increase in the CEA level to 30.4 ng/mL. At that point I opted to stop any further treatment with panitumumab. He ultimately agreed to a trial of second line therapy with FOLFIRI chemotherapy in combination with Avastin. He began cycle 1 on 09/04/2020. His baseline CEA level was 52.8 ng/mL. He has had worsening fatigue/somnolence following that treatment, and as of his follow-up visit on 09/18/2020 he opted to delay any further chemotherapy. At that point he was not having diarrhea or other obvious chemotherapy related toxicities. However, 4 days later he was admitted to the hospital after he became severely hypoglycemic at home. There was some suspicion that also he may have had an acute stroke, but in retrospect that appears to have been unlikely. As of his follow-up visit on 11/20/2020 he still had fairly marginal performance status, and his chemotherapy remained on hold. His restaging CT scans on 12/14/2020 showed progression of bilateral pulmonary metastases and progression of metastatic involvement in the liver. The CT findings reviewed with the patient and his daughter, I also reviewed the CT images with them. We discussed options for further management. He decided to proceed with a trial of further chemotherapy with modified FOLFOX regimen in combination with Avastin. He began the first cycle on 12/31/2020. Both the oxaliplatin and the 5-FU were administered at reduced dosages. He initially tolerated it well, and he continued with cycle 2 on 01/14/2021. His further treatment was delayed due to neuropathy, but he was then able to continue with cycle 3 on 02/11/2021. During treatment his CEA has stabilized, so that he does appear to be getting some benefit. It has been at the expense of side effects, mainly fatigue and neuropathy. At this point he does wish to continue chemotherapy, but he will want to stop treatment if the neuropathy gets any worse. As such, he will proceed now with cycle 4 of modified FOLFOX/Avastin. The dosages remain the same, but his treatment will be continued at a 4-week interval. Signed By: Xiang Castillo M.D. <<Signature on File>>
[2021-03-13] MEDS: sodium chloride 0.9% 1,000 ML 999 ML IV (14:13)
== END 2021-04-05 23:59 | disposition home or self-care (01) ==
LOC: ONCMED 06:20
PROVIDERS: Internal Medicine Medical Oncology; PCP Family Medicine; Visit Provider Nurse Practitioner
DX: Z51.11 Encounter for antineoplastic chemotherapy (principal); C18.7 Malignant neoplasm of sigmoid colon; C78.01 Secondary malignant neoplasm of right lung; C78.02 Secondary malignant neoplasm of left lung; C78.7 Secondary malignant neoplasm of liver and intrahepatic bile duct; C77.2 Secondary and unspecified malignant neoplasm of intra-abdominal lymph nodes; E11.59 Type 2 diabetes mellitus with other circulatory complications; I25.2 Old myocardial infarction; Z95.5 Presence of coronary angioplasty implant and graft; N20.0 Calculus of kidney; L27.1 Localized skin eruption due to drugs and medicaments taken internally; T45.1X5A Adverse effect of antineoplastic and immunosuppressive drugs, initial encounter; G62.0 Drug-induced polyneuropathy; K52.1 Toxic gastroenteritis and colitis; R40.0 Somnolence; Z86.73 Personal history of transient ischemic attack (TIA), and cerebral infarction without residual deficits; Z79.899 Other long term (current) drug therapy
CPT/HCPCS: 80053; 82378; 83036; 85025; 96360; 96367; 96368; 96413; 96415; 96416; 96417; 99215; J0640; J1100; J2469; J7030; J9035; J9190; J9263

== ENCOUNTER 2021-04-05 19:48 | Emergency (ER) | payer MEDICARE, OTHER, SELFPAY ==
[2021-04-05 20:03] VITALS: BP 150/93; PULSE 81; RESP 18; TEMP 36.7; O2SAT 97; BMI 27.3
--- NOTE | 2021-04-05 20:27 | CTR_ITS ---
PROCEDURE INFORMATION: Exam: CT Abdomen And Pelvis With Contrast Exam date and time: 04/05/2021 8:27 PM Age: 70 years old Clinical indication: Abdominal pain; Localized; Prior surgery; Surgery type: Cabg. Gb. ; Patient HX: C/O left sided abd pain. History of lung/hepatic cancer. TECHNIQUE: Imaging protocol: Computed tomography of the abdomen and pelvis with contrast. Radiation optimization: All CT scans at this facility use at least one of these dose optimization techniques: automated exposure control; mA and/or kV adjustment per patient size (includes targeted exams where dose is matched to clinical indication); or iterative reconstruction. Contrast material: OMNI 300; Contrast volume: 95 ml; Contrast route: INTRAVENOUS (IV); COMPARISON: CT chest abd pel w con* 12/14/2020 10:56 AM RADIATION DOSE METRICS: Total DLP (mGy-cm): 1473.57 FINDINGS: Lungs: Multiple bilateral metastatic lung lesions, the largest measures approximately 5 x 1.3 cm, previously 5.3 x 4.1 cm. Pleural spaces: Tiny left pleural effusion. Liver: Partially calcified right lobe liver lesion measuring 4.4 x 2.9 cm, previously 4 point 0 x 5 cm. Partially calcified left lobe lesion measuring 4.6 x 4.8 cm, previously 4.9 x 6.2 cm. Lesion at the dome of the liver measuring 3 x 2.3 cm, previously 4.4 x 3.7 cm. Gallbladder and bile ducts: No wall thickening, pericholecystic fluid or stones. Pancreas: Pancreas is normal. Spleen: Spleen is normal. Adrenal glands: Normal. No mass. Kidneys and ureters: There are multiple left renal cysts, largest measures 4.4 cm Stomach and bowel: There are changes of prior rectosigmoid resection. Appendix: The appendix is not positively identified. However, no secondary changes of appendicitis are present. Intraperitoneal space: Unremarkable. No free air. No significant fluid collection. Vasculature: Unremarkable. No abdominal aortic aneurysm. Lymph nodes: Multiple upper abdominal and retroperitoneal lymph nodes which are partially calcified, largest individual node measures 3.5 by 2.8 cm, previously 3.8 x 2.7 cm. Right retroperitoneal lymph node measures 2.8 x 1.8 cm, previously 3.4 x 2.3 cm. Urinary bladder: Unremarkable as visualized. Reproductive: Unremarkable as visualized. Bones/joints: Unremarkable. No acute fracture. Soft tissues: Unremarkable. CT/CT abdomen pelvis w con* [id number] IMPRESSION: 1. No cause for acute pain is identified. 2. Multiple bilateral metastatic lung lesions, the largest measures approximately 5 x 1.3 cm, previously 5.3 x 4.1 cm. 3. Tiny left pleural effusion. 4. Multiple hepatic metastases which have decreased in size. 5. Upper abdominal lymph nodes which appear to be stable to slightly decreased in size. 6. The appendix is not positively identified. However, no secondary changes of appendicitis are present. COMMENTS: Consistent with the [employer]'s Incidental Findings Committee white paper (J Am Justyna Radiol 2018): Any incidental renal lesion less than 1 cm or classified as too small to characterize, or any incidental cystic renal lesion characterized as simple-appearing, is likely benign. No follow-up imaging is recommended for these lesions per consensus recommendations based on imaging criteria.
--- NOTE | 2021-04-05 20:29 | ECG_ITS ---
[facility] Test Date: 2021-04-05 Pat Name: Gulshan Braga Department: Room: Gender: Male Trip Follower: : 1950 Requested By: Isauro Chawla Order Number: [id number] Brooke MD: Dominic Bangura M.D. Measurements Intervals [place] Rate: 85 P: 46 MO: 160 QRS: 51 QRSD: 106 T: 29 QT: 386 QTc: 462 Interpretive Statements SINUS RHYTHM WITH OCCASIONAL VENTRICULAR PREMATURE COMPLEXES ANTERIOR MYOCARDIAL INFARCTION , PROBABLY OLD [40+ ms Q WAVE AND/OR ST/T ABNORMALITY IN V3/V4] Compared to ECG 09/23/2020 03:11:31 Myocardial infarct finding now present ST (T wave) deviation no longer present Electronically Signed On 04-06-2021 4:47:03 COLD STRIP ROLLER by Dominic Bangura M.D. [email or web address]
--- NOTE | 2021-04-05 20:33 | ED_ITS ---
HPI - Dizziness General: Chief Complaint: Dizziness Stated Complaint: Dizzy N\V Lt side Pain Time Seen by Provider: 04/05/21 20:19 Source: patient Mode of arrival: ambulatory Limitations: no limitations History of Present Illness: HPI Narrative: 70-year-old male states he been having abdominal pain with vomiting diarrhea throughout the day. States his pain is left lower abdomen sharp in nature rates it a 6 out of 10. Denies any fever denies any worsening improving factors does have a history of colon cancer had a colon resection roughly 5 years ago and has been in remission currently has lung cancer denies any blood in his stool or vomitus. Associated symptoms: Reports nausea and vomiting; Denies chest pain, chills or headache(s) Review of Systems Const: Denies: fever(s), chills, body aches or change in appetite Eyes: Denies: blurry vision or eye discomfort ENMT: Denies: throat pain or dental pain Card: Denies: chest pain Resp: Denies: dyspnea GI: Reports: abdominal pain, nausea, vomiting and diarrhea : Denies: dysuria Musc: Denies: neck pain or back pain Skin/Breast: Denies: rash Neuro: Denies: headache(s) Psych: Denies: depression Florencio/Lymph: Denies: easy bruising All/Imm: Denies: urticaria PFSH ED PFSH: Medical History CAD (coronary artery disease) Cancer COLON CHF (congestive heart failure), NYHA class I Diabetes Dyslipidemia Fatigue Hypertension Ischemic cardiomyopathy Metastasis PRIYA (obstructive sleep apnea) Palpitation PVCs (premature ventricular contractions) Shortness of breath Type 2 diabetes mellitus Surgical History Hx of CABG 2014 Port-A-Cath in place (01/04/20) left subclavian Family History Other CAD (coronary artery disease) Myocardial infarction Social History Smoking and tobacco status: former smoker Quit status (tobacco): has quit using tobacco Year quit tobacco: 2004 Alcohol intake: never Physical Exam Const: COMMON NORMALS: no acute distress, patient oriented x3 and healthy appearing HENMT: COMMON NORMALS: normocephalic and atraumatic HEAD & SCALP: normocephalic and atraumatic Eye: COMMON NORMALS: Equal, round and reactive pupils present and EOMs intact bilaterally PUPIL: Yes Equal, round and reactive pupils present Neck/C-Spine: COMMON NORMALS: full ROM and supple Chest: COMMONS NORMALS: normal inspection of the chest and normal palpation of entire chest wall Resp: COMMON NORMALS: normal respiratory effort, No retractions, No use of accessory muscles and clear to auscultation bilaterally AUSCULTATION: clear to auscultation bilaterally Cardio: COMMON NORMALS: regular rate, regular rhythm and No murmurs present (Cardio) RATE: regular rate RHYTHM: regular rhythm GI: COMMON NORMALS: Normal to inspection, nondistended, normoactive bowel sounds present, Soft to palpation and no masses PALPATION: Yes Soft to palpation and Yes Tenderness to palpation present (GI) Details: LLQ Extremity: COMMON NORMALS: normal to inspection and full ROM Neuro: COMMON NORMALS: patient oriented x3, moves all extremities and no focal motor deficits Psych: COMMON NORMALS: mental status grossly normal, Normal thought process present and cooperative THOUGHT PROCESS: Normal thought process present Skin: COMMON NORMALS: no rashes or lesions noted and no wounds GENERAL SKIN EXAM: no rashes or lesions noted Course Vital Signs: Vital signs: Vital Signs Temperature 98.1 F 04/05/21 20:03 Pulse Rate 78 04/05/21 23:19 Respiratory Rate 17 04/05/21 23:19 Blood Pressure 128/87 04/05/21 23:19 Pulse Oximetry 92 04/05/21 23:19 MDM - Dizziness MDM Narrative: Medical decision making narrative: Patient presents with abdominal pain CT scan here is normal he feels much improved patient's blood work is normal as well no signs of acute surgical abdomen he is stable for discharge return if worsening he understands agrees to plan. Lab Data: Labs: Lab Results 04/05/21 04/05/21 04/05/21 21:20 21:20 21:20 WBC 7.0 10^3/uL 10^3/ uL (4.0-10.0) RBC 5.48 10^6/uL H 10 ^6/uL (4.1-5.3) Hgb 13.8 g/dL g/dL (11.7-16.6) Hct 44.7 % % (42.0-52.0) MCV 81.6 fl fl (80-94) MCH 25.2 pg L pg (28.0-34.0) MCHC 30.9 g/dL g/dL (30.0-36.0) RDW 19.4 % H % (12.1-15.1) Plt Count 141 10^3/cmm 10^3 /cmm (130-400) MPV 9.4 fL fL (7.4-10.4) Neut % (Auto) 65.0 % % Lymph % (Auto) 19.4 % % Glenn % (Auto) 12.0 % % Eos % (Auto) 2.4 % % Baso % (Auto) 0.9 % % Neut # (Auto) 4.57 10^3/uL 10^3 /uL (1.8-7.7) Lymph # (Auto) 1.4 10^3/uL 10^3/ uL (0.8-4.8) Glenn # (Auto) 0.8 10^3/uL 10^3/ uL (0.2-0.9) Eos # (Auto) 0.2 10^3/uL 10^3/ uL (0.0-0.8) Baso # (Auto) 0.1 10^3/uL 10^3/ uL (0.0-0.1) Nucleated RBC % (a uto) 0 % % Nucleated RBCs # 0.0 /100WBC /100W BC Sodium 141 mmol/L mmol/L (136-145) Potassium 4.0 mmol/L mmol/L (3.5-5.1) Chloride 106 mmol/L mmol/L (98-107) Carbon Dioxide 22 mmol/L mmol/L (22-29) Anion Gap 17.0 (5-19) BUN 8 mg/dL mg/dL (8-23) Creatinine 0.9 mg/dL mg/dL (0.7-1.2) GFR Calculation Not Reportable Glucose 86 mg/dL mg/dL (65-115) Calculated Osmolal ity 290 mOsm/kg mOsm/ kg (285-295) Lactate 1.4 mmol/L mmol/L (0.5-2.2) Calcium 8.6 mg/dL mg/dL (8.5-10.5) Total Bilirubin 0.6 mg/dL mg/dL (0.15-1.2) AST 14 U/L U/L (0-40) ALT 7 U/L U/L (0-41) Alkaline Phosphata se 74 IU/L IU/L (40-130) Total Protein 7.4 g/dL g/dL (6.6-8.7) Albumin 3.9 g/dL g/dL (3.5-5.2) Globulin 3.5 g/dL g/dL (1.3-4.6) Lipase 13 U/L U/L (13-60) Urine Color Urine Appearance Urine pH Ur Specific Gravit y Urine Protein Urine Glucose (UA) Urine Ketones Urine Blood Urine Nitrate Urine Bilirubin Urine Urobilinogen Ur Leukocyte Jayna ase 04/05/21 22:20 WBC RBC Hgb Hct MCV MCH MCHC RDW Plt Count MPV Neut % (Auto) Lymph % (Auto) Glenn % (Auto) Eos % (Auto) Baso % (Auto) Neut # (Auto) Lymph # (Auto) Glenn # (Auto) Eos # (Auto) Baso # (Auto) Nucleated RBC % (a uto) Nucleated RBCs # Sodium Potassium Chloride Carbon Dioxide Anion Gap BUN Creatinine GFR Calculation Glucose Calculated Osmolal ity Lactate Calcium Total Bilirubin AST ALT Alkaline Phosphata se Total Protein Albumin Globulin Lipase Urine Color Yellow (Yellow) Urine Appearance Clear (CLEAR) Urine pH 5 (5-7) Ur Specific Gravit y 1.015 (1.005-1.030) Urine Protein Neg (Negative) Urine Glucose (UA) Norm (Normal) Urine Ketones Negative (Negative) Urine Blood Neg (Negative) Urine Nitrate Negative (Negative) Urine Bilirubin Neg (Negative) Urine Urobilinogen Norm mg/dL mg/dL (Negative) Ur Leukocyte Jayna ase Negative (Negative) Imaging Data^: CT Abd/Pel: Attestation: I personally reviewed and interpreted this imaging study as follows: Radiologist's impression: [address] [address] [address] Scan Report Signed Patient: Gulshan Braga Unit #: [id number] : 1950 Age/Sex: 70 / M ADM Date: 04/05/21 Loc: ER Room/Bed: Attending Dr: Ordering Provider/Ordering MD: Isauro Chawla MD Date of Service: 04/05/21 Procedure(s): CT abdomen pelvis w con* [id number] Accession Number(s): [id number] Report Number: [id number] PROCEDURE INFORMATION: Exam: CT Abdomen And Pelvis With Contrast Exam date and time: 04/05/2021 8:27 PM Age: 70 years old Clinical indication: Abdominal pain; Localized; Prior surgery; Surgery type: Cabg. Gb. ; Patient HX: C/O left sided abd pain. History of lung/hepatic cancer. TECHNIQUE: Imaging protocol: Computed tomography of the abdomen and pelvis with contrast. Radiation optimization: All CT scans at this facility use at least one of these dose optimization techniques: automated exposure control; mA and/or kV adjustment per patient size (includes targeted exams where dose is matched to clinical indication); or iterative reconstruction. Contrast material: OMNI 300; Contrast volume: 95 ml; Contrast route: INTRAVENOUS (IV); COMPARISON: CT chest abd pel w con* 12/14/2020 10:56 AM RADIATION DOSE METRICS: Total DLP (mGy-cm): 1473.57 FINDINGS: Lungs: Multiple bilateral metastatic lung lesions, the largest measures approximately 5 x 1.3 cm, previously 5.3 x 4.1 cm. Pleural spaces: Tiny left pleural effusion. Liver: Partially calcified right lobe liver lesion measuring 4.4 x 2.9 cm, previously 4 point 0 x 5 cm. Partially calcified left lobe lesion measuring 4.6 x 4.8 cm, previously 4.9 x 6.2 cm. Lesion at the dome of the liver measuring 3 x 2.3 cm, previously 4.4 x 3.7 cm. Gallbladder and bile ducts: No wall thickening, pericholecystic fluid or stones. Pancreas: Pancreas is normal. Spleen: Spleen is normal. Adrenal glands: Normal. No mass. Kidneys and ureters: There are multiple left renal cysts, largest measures 4.4 cm Stomach and bowel: There are changes of prior rectosigmoid resection. Appendix: The appendix is not positively identified. However, no secondary changes of appendicitis are present. Intraperitoneal space: Unremarkable. No free air. No significant fluid collection. Vasculature: Unremarkable. No abdominal aortic aneurysm. Lymph nodes: Multiple upper abdominal and retroperitoneal lymph nodes which are partially calcified, largest individual node measures 3.5 by 2.8 cm, previously 3.8 x 2.7 cm. Right retroperitoneal lymph node measures 2.8 x 1.8 cm, previously 3.4 x 2.3 cm. Urinary bladder: Unremarkable as visualized. Reproductive: Unremarkable as visualized. Bones/joints: Unremarkable. No acute fracture. Soft tissues: Unremarkable. CT/CT abdomen pelvis w con* [id number] IMPRESSION: 1. No cause for acute pain is identified. 2. Multiple bilateral metastatic lung lesions, the largest measures approximately 5 x 1.3 cm, previously 5.3 x 4.1 cm. 3. Tiny left pleural effusion. 4. Multiple hepatic metastases which have decreased in size. 5. Upper abdominal lymph nodes which appear to be stable to slightly decreased in size. 6. The appendix is not positively identified. However, no secondary changes of appendicitis are present. COMMENTS: Consistent with the [employer] [place] [employer]'s Incidental Findings Committee white paper (J Am Justyna Radiol 2018): Any incidental renal lesion less than 1 cm or classified as too small to characterize, or any incidental cystic renal lesion characterized as simple-appearing, is likely benign. No follow-up imaging is recommended for these lesions per consensus recommendations based on imaging criteria. Dictated By: Joe Whaley Signed By: Joe Whaley Signed Date/Time: 04/05/212217 DD/ 26 EKG Data^: EKG 1: Attestation: I personally reviewed and interpreted this EKG as follows: EKG interpretation date: 04/05/21 EKG interpretation time: 22:04 Interpretation: nsr hr [address] or t wave abnormalities qrs 106 qtc 429 Discharge Plan Discharge Patient Disposition: Home Clinical Impression: Abdominal pain Condition: Stable Prescriptions: New ondansetron 4 mg tablet,disintegrating 4 mg PO Q6H PRN (Reason: nausea and vomiting) Qty: 14 RF: 0 No Action cholecalciferol (vitamin D3) 50 mcg (2,000 unit) capsule 50 mcg PO DAILY RF: 0 metoprolol succinate 25 mg tablet extended release 24 hr 12.5 mg PO DAILY Qty: 45 RF: 3 ferrous sulfate 325 mg (65 mg iron) tablet,delayed release (DR/EC) 325 mg PO DAILY RF: 0 aspirin 81 mg tablet,delayed release (DR/EC) 81 mg PO DAILY Qty: 30 RF: 0 magnesium oxide 400 mg magnesium capsule 400 mg PO DAILY Qty: 30 RF: 0 ondansetron 4 mg tablet,disintegrating 4 mg PO Q6H PRN (Reason: nausea and vomiting) Qty: 14 RF: 0 prochlorperazine maleate 10 mg Tablet 10 mg PO BID PRN (Reason: Nausea) RF: 0 potassium 99 mg Tablet 99 mg PO DAILY RF: 0 Discharge Orders: Discharge ED (Routine); Ordered 04/05/21 Ordered By: Isauro Chawla Referrals: Janina Clinton DO [Primary Care Provider] - Discharge Diet: Advance as tolerated Discharge Activity: Resume usual activity Patient Instructions: Abdominal Pain (ED) Coding Level of Care Code ED [employer] for Chg Fwd Exam Comprehensive
[2021-04-05] MEDS: ondansetron 2 mg/ML SDV 2 mL 4 MG IVP (21:22)
[2021-04-05] MEDS: morphine 4 mg/mL SDV 1 mL IVP (21:22)
[2021-04-05] MEDS: sodium chloride 0.9% 1,000 ML 999 ML IV (21:22)
[2021-04-05 21:30] LABS: Basophils # 0.1 10^3/uL (0.0-0.1); Basophils % 0.9 %; Eosinophils # 0.2 10^3/uL (0.0-0.8); Eosinophils % 2.4 %; Hematocrit 44.7 % (42.0-52.0); Hemoglobin 13.8 g/dL (11.7-16.6); Lymphocytes # 1.4 10^3/uL (0.8-4.8); Lymphocytes % 19.4 %; Mean Corpuscular HGB Conc 30.9 g/dL (30.0-36.0); Mean Corpuscular Hemoglobin 25.2 pg (28.0-34.0); Mean Corpuscular Volume 81.6 fl (80-94); Mean Platelet Volume 9.4 fL (7.4-10.4); Monocytes # 0.8 10^3/uL (0.2-0.9); Neutrophils # 4.57 10^3/uL (1.8-7.7); Nucleated Red Blood Cells % 0 %; Platelet Count 141 10^3/cmm (130-400); Red Blood Count 5.48 10^6/uL (4.1-5.3); Red Cell Distribution Width 19.4 % (12.1-15.1)
[2021-04-05] MEDS: iohexol 300 mg/mL 100 mL Btl IV (21:39)
[2021-04-05 21:53] LABS: Alanine Aminotransferase 7 U/L (0-41); Albumin Level 3.9 g/dL (3.5-5.2); Alkaline Phosphatase 74 IU/L (40-130); Aspartate Amino Transferase 14 U/L (0-40); Blood Urea Nitrogen 8 mg/dL (8-23); Calcium 8.6 mg/dL (8.5-10.5); Carbon Dioxide 22 mmol/L (22-29); Chloride 106 mmol/L (98-107); Globulin 3.5 g/dL (1.3-4.6); Glucose 86 mg/dL (65-115); Lactate (Lactic Acid level) 1.4 mmol/L (0.5-2.2); Lipase 13 U/L (13-60); Osmolality Calculated 290 mOsm/kg (285-295); Sodium 141 mmol/L (136-145); Total Bilirubin 0.6 mg/dL (0.15-1.2); Total Protein 7.4 g/dL (6.6-8.7)
[2021-04-05 22:38] LABS: Add Urine Microscopic? NO; Charge for UA Resulting for Rev
[2021-04-05 22:45] LABS: Bilirubin Urine Neg (Negative); Blood Urine Neg (Negative); Glucose Urine UA Norm (Normal); Ketones Urine Negative (Negative); Leukocyte Esterase Urine Negative (Negative); Nitrate Urine Negative (Negative); Protein Urine Neg (Negative); Specific Gravity, Urine 1.015 (1.005-1.030); Urine Appearance Clear (CLEAR); Urine Color Yellow (Yellow); Urobilinogen Urine Norm (Negative); pH Urine 5 (5-7)
[2021-04-05 23:19] VITALS: BP 128/87; PULSE 78; RESP 17; O2SAT 92
== END 2021-04-05 23:20 | disposition home or self-care (01) ==
PROVIDERS: Emergency Provider Emergency Medicine; PCP Family Medicine
DX: R10.9 Unspecified abdominal pain (principal); Z79.82 Long term (current) use of aspirin; I25.10 Atherosclerotic heart disease of native coronary artery without angina pectoris; Z85.038 Personal history of other malignant neoplasm of large intestine; I11.0 Hypertensive heart disease with heart failure; I50.9 Heart failure, unspecified; E11.9 Type 2 diabetes mellitus without complications; E78.5 Hyperlipidemia, unspecified; Z95.1 Presence of aortocoronary bypass graft; Z87.891 Personal history of nicotine dependence
CPT/HCPCS: 74177; 80053; 81003; 83605; 83690; 85025; 93005; 96361; 96374; 96375; 99283; J2270; J2405; J7030; Q9967

== ENCOUNTER 2021-04-24 06:31 | Outpatient (RCR) | payer MEDICARE, OTHER, SELFPAY ==
[2021-04-08 09:33] LABS: Basophils # 0.1 10^3/uL (0.0-0.1); Basophils % 0.9 %; Eosinophils # 0.2 10^3/uL (0.0-0.8); Eosinophils % 1.6 %; Hematocrit 44.4 % (42.0-52.0); Hemoglobin 14.1 g/dL (11.7-16.6); Lymphocytes # 1.3 10^3/uL (0.8-4.8); Lymphocytes % 14.4 %; Mean Corpuscular HGB Conc 31.8 g/dL (30.0-36.0); Mean Corpuscular Hemoglobin 25.8 pg (28.0-34.0); Mean Corpuscular Volume 81.3 fl (80-94); Mean Platelet Volume 9.2 fL (7.4-10.4); Monocytes # 1.1 10^3/uL (0.2-0.9); Monocytes % 11.5 %; Neutrophils # 6.48 10^3/uL (1.8-7.7); Neutrophils % 71.3 %; Nucleated Red Blood Cells % 0 %; Platelet Count 138 10^3/cmm (130-400); Red Blood Count 5.46 10^6/uL (4.1-5.3); Red Cell Distribution Width 18.6 % (12.1-15.1); White Blood Count 9.1 10^3/uL (4.0-10.0)
[2021-04-08 10:06] LABS: Alanine Aminotransferase 16 U/L (0-41); Albumin Level 3.9 g/dL (3.5-5.2); Alkaline Phosphatase 111 IU/L (40-130); Anion Gap 19.7 (5-19); Aspartate Amino Transferase 20 U/L (0-40); Blood Urea Nitrogen 8 mg/dL (8-23); Calcium 8.6 mg/dL (8.5-10.5); Carbon Dioxide 21 mmol/L (22-29); Chloride 102 mmol/L (98-107); Globulin 3.7 g/dL (1.3-4.6); Glucose 78 mg/dL (65-115); Osmolality Calculated 285 mOsm/kg (285-295); Potassium 3.7 mmol/L (3.5-5.1); Sodium 139 mmol/L (136-145); Total Bilirubin 0.8 mg/dL (0.15-1.2); Total Protein 7.6 g/dL (6.6-8.7)
[2021-04-08] MEDS: sodium chloride 0.9% 1,000 ML 999 ML IV (10:30)
--- NOTE | 2021-04-09 08:09 | ONC FU_ITS ---
Dr. Castillo Patient Follow-Up Note Patient: Gulshan Braga Unit #: [id number]: 1950 Dicatated By: Xiang Castillo M.D.Date of Visit:Apr 08, 2021 Onc Med Follow-up/Prog Note Chief Complaint: Colon cancer. 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 He had presented with influenza pneumonia and non-ST elevation NC. During anticoagulation in preparation for coronary artery bypass graft surgery he developed significant rectal bleeding. A CT of the abdomen and pelvis on 05/11/2014 showed a mass in the distal sigmoid colon with soft tissue stranding, but no evidence of disease in the liver. There were 2 discrete nodules in the left lower lobe up to 1.1 cm with a patchy foci in the lingula and the left lower lobe. He required a cardiac bypass graft surgery on 05/19/2014. Preoperative staging PET/CT was reportedly performed, but results were not available. He then underwent left hemicolectomy on 07/03/2014. His surgical pathology revealed 6 x 5 cm low-grade adenocarcinoma, invading through muscularis propria into the subserosal adipose tissue. Two tumor deposits were present on the pericolonic adipose tissue. None of the 24 lymph nodes harvested were involved with metastatic disease. No lymphovascular or perineural invasion was identified. Luminal obstruction of more than 70% was present. Margins were negative. Thus, his disease was pathologic stage at least IIIB (pT3, N1c, MX). Mismatch repair analysis was normal, without defect identified. The patient had relocated to [place] from [place], to be closer to his daughter. He moved to the [facility] in August 2014 and established care with the [facility] in [place]. He was first seen by Dr. Vivas on 03/27/2015. His staging CT scans of the chest/abdomen/pelvis on 04/10/2014 showed increase in the two left lung nodules to 1.8 and 1.69 cm, concerning for metastatic disease. PET/CT on 05/05/2015 confirmed 2 FDG positive nodules in the left lung. A CT-guided biopsy on 06/11/2015 showed suspicious cells for malignancy, with only scant specimen available. Thus his disease was stage IV (M1b). Palliative FOLFOX and Avastin was recommended and was planned, but the patient decided against palliative chemotherapy. In the meantime, KRAS mutation was performed on the original biopsy, and mutations were not detected. He was then followed on observation/symptomatic management. Restaging CT scans of the chest, abdomen, and pelvis on 07/24/2016 showed increasing size left pulmonary nodules/mass with the largest mass of the left lung base measuring 3.1 x 2.6 cm. Overall, four nodules were present with continued slow progression since April 2015 study. I had seen him for a follow-up visit in October 2016. He was still not interested in attempting any chemotherapy treatment, and he then failed to return for further follow-up. On 03/15/2018 he presented to the emergency room with back pain. He had evaluation at that time with lumbar spine CT, which showed no acute findings. He was diagnosed with acute left-sided sciatica and treated symptomatically. He returned to the emergency room on 03/28/2018. His renal CT at that time showed a partially obstructing 4 x 5 mm ureteral calculus at the left ureteropelvic junction. Other findings included prominent portal and celiac lymph nodes, a mass adjacent to the caudate lobe of the liver measuring 2.3 cm, and a low-attenuation lesion in the hepatic dome which appeared suspicious for a metastatic lesion. Also noted were enlarging pulmonary masses in the left lower lobe. I had seen him for a follow-up visit on 04/13/2018. At that point I did request further evaluation with a next generation sequencing study. It showed no actionable mutations. The tumor was noted to be MSI stable. He continued observation/symptomatic management for the colon cancer. However, he was still having problems related to the kidney stone. He had continued follow-up with Dr. Mckeon and on 06/14/2018 he underwent extracorporeal shockwave lithotripsy for the left distal ureteral stone. He required temporary ureteral stent placement. He had no complications with the procedure, and the stent was later removed. At his follow-up visit on 04/29/2019 his CEA level had increased to 21.7 ng/mL compared to 8.9 ng/mL in April 2018. However, he was still not interested in considering any treatment. He was then seen for a follow-up visit again on 10/27/2019. At that point his CEA had further increased to 41.4 ng/mL. He then had restaging CT scans of the chest, abdomen, and pelvis on 11/07/2019. Those studies showed significant progression of metastatic disease with increasing pulmonary nodules in both lungs, the largest in the left upper lobe measuring 3.5 x 2.9 cm and in the left lower lobe measuring 4.6 x 4.9 cm. There was progression of metastatic lesions in the right hepatic lobe, the largest measuring 4.3 x 3.4 cm in the dome of the liver and 4.8 cm in the right hepatic lobe laterally. Also noted were multiple enlarged partially calcified lymph nodes in the love hepatis and celiac axis, bulky enlarged retrocrural and gastroesophageal lymph nodes, and bulky periaortic and retroperitoneal lymph nodes, all new from previous studies. With those findings he did opt to begin a trial of therapy with panitumumab as a single agent. He began cycle 1 on 11/17/2019. His further treatment was then put on hold due to a severe skin eruption, which developed despite having been given dexamethasone prophylaxis. During follow-up his rash slowly improved, and during that time there was a significant decline in his CEA level. As such, he opted to continue treatment, and he restarted panitumumab on 01/12/2020 with the dosage reduced to 2 mg/kg by IV infusion. He tolerated it with acceptable toxicity and he continued treatment at 2-week intervals. As of 02/07/2020 his CEA level had decreased to 18.9 ng/mL, and it then stabilized. Restaging CT scans on 04/13/2020 showed multiple metastatic pulmonary nodules throughout both lungs, with the size and number relatively unchanged compared to the December 2019 study. Heterogeneous and partially calcified metastatic lesions of both hepatic lobes also appeared stable, as did his bulky upper abdominal lymphadenopathy. Previously described tiny left pericolic gutter metastatic lesions appear to have resolved. A lytic lesion in the right iliac wing was noted to be stable. With those findings, he continued the panitumumab monotherapy at 2-week intervals. However, following his treatment on 05/15/2020 the panitumumab was put on hold due to worsening skin eruption and other side effects. He had continued with cycle 14 of panitumumab on 07/03/2020. However, at that point his CEA level had increased significantly, to 30.4 ng/mL, and I then opted to stop that treatment. His other medical illnesses include hypertension, hyperlipidemia, type II diabetes, and coronary artery disease. He has a history of smoking a pack and a half of cigarettes daily for 30 years, but he quit smoking more than 10 years ago. INTERIM HISTORY: On 09/04/2020 he began cycle 1 of 2nd line treatment with FOLFIRI chemotherapy in combination with Avastin. His baseline CEA level was 52.8 ng/mL. He reported increased fatigue and somnolence following that treatment. He did not experience any other toxicity acutely. At his follow-up visit on 09/18/2020 he continued to report severe fatigue and he opted to delay any further chemotherapy. He was not having diarrhea. Four days later he was taken to the emergency room after his daughter found him unresponsive at home. When she was able to arouse him she thought he was not moving his right arm and leg, and on that basis it was suspected he might be having an acute stroke. However, in the emergency room he was found to be significantly hypoglycemic. He was admitted to the hospital. His brain MRI showed no acute infarct or hemorrhage and no evidence of metastatic disease. He was discharged home on 09/25/2020. As of his follow-up visit on 11/20/2020 his performance status was still very marginal, and his chemotherapy remained on hold Restaging CT scans of the chest, abdomen, and pelvis on 12/14/2020 showed significant increase in size and number of metastatic sites throughout both lungs. The largest was in the left lower lobe abutting the pleura, measuring 7.9 x 6.6 x 5.2 cm. There was also progression of metastatic disease within the liver. Enhancing subcutaneous intramuscular nodules within the left abdominal wall were also suspicious for metastatic sites. A new left supraclavicular lymph node measuring 12 mm was highly suspicious for metastasis. I had seen him for a follow-up visit on 12/24/2020. At that time, he desired to continue further treatment. He returned on 12/31/2020 to begin a trial of therapy with a modified FOLFOX regimen in combination with Avastin. Both the oxaliplatin and 5-FU were administered at reduced dosages. He tolerated the 1st cycle pretty well and he continued with cycle 2 on 01/14/2021. His further treatment was delayed due to neuropathy. He was then able to proceed with cycle 3 on 02/11/2021. At that point his CEA level had stabilized. Due to concerns with treatment related toxicity, I opted to continue his further chemotherapy at a 4-week interval. He is seen for a follow-up visit. He has not been feeling quite as good. On he was seen in the emergency room with lower abdominal pain. There were no acute findings on his CT abdomen/pelvis. Metastatic lesions in the liver and upper abdominal lymph nodes were noted to be decreased in size or stable and there also appear to be some decrease in metastatic pulmonary nodules. A specific cause of the abdominal pain was not determined. He thinks it may have just been a bug , and the pain has pretty well resolved now. He has limited activity tolerance, but he is able to do some light work. ECOG score is 1. He says he has not been eating a lot. He does not have fever or night sweats. He has not had sore mouth or throat and he does not complain of cough. He says his breathing is pretty good. He has not had any chest pain. He says he has been sick for the first night after last couple of chemotherapy treatments. He has a little bit of acid reflux. He says his bowels have been a little bit slow. He has had no diarrhea. Bladder function remains adequate. He has no significant joint or bone pain. He does not complain of headache. He was having some dizziness when he went to the ER. He still has some neuropathy, but not as bad with his cycles at 4-week intervals. Medications: Aspirin 1 Tablet (of 81 mg) Tablet, chewable Oral daily, Atorvastatin Calcium (40 mg) Tablet Oral daily, Clopidogrel Bisulfate (75 mg) Tablet Oral daily, Magnesium (400 mg) Tablet Oral daily, Ondansetron 1 Tablet (of 4 mg) Tablet Dispersable Oral q 4 hours PRN, Vitamin D3 1 (2000 Units) Tablet Oral daily Allergies: Penicillin V Potassium Vital Signs: Performed on Apr 08, 2021 10:36 Height - 67.00 in Weight - 170.2 lbs (LOW) BSA - 1.89 sq.m BMI - 26.66 Temperature - 97.4 F (LOW) Pulse - 93 /min Respiration - 18 /min BP - 116/77 mm(hg) O2 Sat - 98 % Pain - 0 Fatigue - 6 Physical Examination: Constitutional - He appears somewhat weak generally, Eyes - Sclerae nonicteric. Conjunctivae clear, ENMT - No lesions noted in the oral cavity, Hematologic/Lymphatic - No cervical, clavicular, or axillary adenopathy, Respiratory - Lungs sound clear, Cardiovascular - Heart rhythm is irregular. There is a II/ systolic murmur. There is no gallop or rub noted, Abdomen - Mildly distended but soft. Liver and spleen are not enlarged. There is no abdominal mass or ascites noted and there is no inguinal adenopathy, Extremities - No edema, Neurologic - No focal neurologic deficits noted. Lab/Imaging: Test performed on Apr 08, 2021 09:20 Sodium 139 mmol/L Potassium 3.7 mmol/L Chloride 102 mmol/L CO2 21 mmol/L Anion Gap 19.7 BUN 8 mg/dL Creatinine 0.9 mg/dL Cr Clearance (Est) 81.02 mL/min Glucose 78 mg/dL Osmolality - Calculated 285 mOsm/kg Calcium 8.6 mg/dL Protein, Total 7.6 g/dL Albumin 3.9 g/dL Globulin 3.7 g/dL Bilirubin, Total 0.8 mg/dL ALT (SGPT) 16 U/L AST (SGOT) 20 U/L Alkaline Phosphatase 111 IU/L WBC 9.1 10 3/uL RBC 5.46 10 6/uL HGB 14.1 g/dL HCT 44.4 % MCV 81.3 fl MCH 25.8 pg MCHC 31.8 g/dL RDW 18.6 % Platelet Count 138 10 3/cmm MPV 9.2 fL Neutrophils 6.48 10 3/uL Lymphocytes 1.3 10 3/uL Monocytes 1.1 10 3/uL Eosinophils 0.2 10 3/uL Basophils 0.1 10 3/uL Neutrophil % 71.3 % Lymphocyte % 14.4 % Monocyte % 11.5 % Eosinophil % 1.6 % Basophils % 0.9 % NRBC % 0 % CEA 80.0 ng/mL Problem List: 1. Low-grade adenocarcinoma of the distal sigmoid colon, stage IV (T3, N1c, M1b). He underwent left hemicolectomy on 07/03/2014. During subsequent follow-up he had enlarging, FDG avid pulmonary nodules, consistent with metastatic disease. He initially opted to have just symptomatic/supportive care. 2. He had non-ST elevation myocardial infarction at initial presentation, and he did require coronary artery bypass surgery prior to the colon resection. 3. Hypertension. 4. Hyperlipidemia. 5. Type II diabetes. 6. Nephrolithiasis. He underwent extracorporeal shockwave lithotripsy for a left distal ureteral stone in June 2018. Problems Addressed with this Encounter and Plan: Patient with low-grade adenocarcinoma of the sigmoid colon, stage IV, with multiple pulmonary metastases and with metastatic involvement in the liver and upper abdominal lymph nodes. He began panitumumab monotherapy in November 2019. During treatment there was a significant decline in his CEA level but with his restaging CT scans showing stable findings. Following his treatment on 05/15/2020 the panitumumab was put on hold due to worsening skin eruption and declining performance status. At that point his CEA level was stable at 13.0 ng/mL. As of his follow-up visit on 07/03/2020 there was a significant increase in the CEA level to 30.4 ng/mL. At that point I opted to stop any further treatment with panitumumab. He ultimately agreed to a trial of second line therapy with FOLFIRI chemotherapy in combination with Avastin. He began cycle 1 on 09/04/2020. His baseline CEA level was 52.8 ng/mL. He has had worsening fatigue/somnolence following that treatment, and as of his follow-up visit on 09/18/2020 he opted to delay any further chemotherapy. At that point he was not having diarrhea or other obvious chemotherapy related toxicities. However, 4 days later he was admitted to the hospital after he became severely hypoglycemic at home. There was some suspicion that also he may have had an acute stroke, but in retrospect that appears to have been unlikely. As of his follow-up visit on 11/20/2020 he still had fairly marginal performance status, and his chemotherapy remained on hold. His restaging CT scans on 12/14/2020 showed progression of bilateral pulmonary metastases and progression of metastatic involvement in the liver. The CT findings reviewed with the patient and his daughter, I also reviewed the CT images with them. We discussed options for further management. He decided to proceed with a trial of further chemotherapy with modified FOLFOX regimen in combination with Avastin. He began the first cycle on 12/31/2020. Both the oxaliplatin and the 5-FU were administered at reduced dosages. He initially tolerated it well, and he continued with cycle 2 on 01/14/2021. His further treatment was delayed due to neuropathy, but he was then able to continue with cycle 3 on 02/11/2021. At that point his CEA level had stabilized, and he then continued his treatment at 4-week intervals. He has now completed 4 cycles of treatment with modified FOLFOX/Avastin. He has been able to tolerate it with acceptable toxicity with the treatments administered at 4-week intervals, and he does appear to be showing some response by CE [address] scan. At this point he is requesting some additional treatment delay, so he will be scheduled to return in 2 weeks to begin his 5th cycle. The dosages will remain the same. I will try adding a dexamethasone taper. I will tentatively plan a follow-up visit in 6 weeks. Signed By: Xiang Castillo M.D. <<Signature on File>>
[2021-04-22 08:57] LABS: Basophils # 0.1 10^3/uL (0.0-0.1); Basophils % 1.4 %; Eosinophils # 0.2 10^3/uL (0.0-0.8); Eosinophils % 2.3 %; Hematocrit 42.1 % (42.0-52.0); Hemoglobin 13.2 g/dL (11.7-16.6); Lymphocytes # 1.5 10^3/uL (0.8-4.8); Lymphocytes % 17.2 %; Mean Corpuscular HGB Conc 31.4 g/dL (30.0-36.0); Mean Corpuscular Hemoglobin 26.1 pg (28.0-34.0); Mean Corpuscular Volume 83.4 fl (80-94); Mean Platelet Volume 9.3 fL (7.4-10.4); Monocytes # 0.9 10^3/uL (0.2-0.9); Monocytes % 10.1 %; Neutrophils # 5.97 10^3/uL (1.8-7.7); Neutrophils % 68.5 %; Nucleated Red Blood Cells % 0 %; Platelet Count 239 10^3/cmm (130-400); Red Blood Count 5.05 10^6/uL (4.1-5.3); White Blood Count 8.7 10^3/uL (4.0-10.0)
[2021-04-22 09:12] LABS: Alanine Aminotransferase < 5 U/L (0-41); Albumin Level 3.8 g/dL (3.5-5.2); Alkaline Phosphatase 80 IU/L (40-130); Anion Gap 17.4 (5-19); Aspartate Amino Transferase 11 U/L (0-40); Blood Urea Nitrogen 10 mg/dL (8-23); Calcium 8.3 mg/dL (8.5-10.5); Carbon Dioxide 23 mmol/L (22-29); Chloride 104 mmol/L (98-107); Globulin 3.2 g/dL (1.3-4.6); Glucose 85 mg/dL (65-115); Osmolality Calculated 290 mOsm/kg (285-295); Potassium 3.4 mmol/L (3.5-5.1); Sodium 141 mmol/L (136-145); Total Bilirubin 0.5 mg/dL (0.15-1.2)
[2021-04-22] MEDS: dextrose 5% 250 ML 75 ML IV (10:08)
[2021-04-22] MEDS: palonosetron 0.25 mg/5 mL SDV IV (10:08)
[2021-04-24] MEDS: sodium chloride 0.9% 1,000 ML 999 ML IV (13:08)
== END 2021-05-06 23:59 | disposition home or self-care (01) ==
LOC: ONCMED 06:31
PROVIDERS: Internal Medicine Medical Oncology; PCP Family Medicine; Visit Provider Nurse Practitioner
DX: Z51.11 Encounter for antineoplastic chemotherapy (principal); C18.7 Malignant neoplasm of sigmoid colon; C78.01 Secondary malignant neoplasm of right lung; C78.02 Secondary malignant neoplasm of left lung; C78.7 Secondary malignant neoplasm of liver and intrahepatic bile duct; I25.2 Old myocardial infarction; E11.59 Type 2 diabetes mellitus with other circulatory complications; I25.10 Atherosclerotic heart disease of native coronary artery without angina pectoris; Z95.5 Presence of coronary angioplasty implant and graft; I10 Essential (primary) hypertension; E78.5 Hyperlipidemia, unspecified; N20.0 Calculus of kidney; Z79.899 Other long term (current) drug therapy
CPT/HCPCS: 80053; 82378; 85025; 96360; 96367; 96368; 96413; 96415; 96416; 96417; 99215; J0640; J1100; J2469; J7030; J9035; J9190; J9263

== ENCOUNTER 2021-05-22 14:15 | Outpatient (RCR) | payer MEDICARE, OTHER, SELFPAY ==
[2021-05-20 09:53] LABS: Basophils # 0.1 10^3/uL (0.0-0.1); Basophils % 1.2 %; Eosinophils # 0.3 10^3/uL (0.0-0.8); Eosinophils % 3.2 %; Hematocrit 41.4 % (42.0-52.0); Lymphocytes # 1.6 10^3/uL (0.8-4.8); Lymphocytes % 20.9 %; Mean Corpuscular HGB Conc 31.4 g/dL (30.0-36.0); Mean Corpuscular Hemoglobin 26.3 pg (28.0-34.0); Mean Corpuscular Volume 83.8 fl (80-94); Mean Platelet Volume 9.9 fL (7.4-10.4); Monocytes # 0.9 10^3/uL (0.2-0.9); Neutrophils # 4.91 10^3/uL (1.8-7.7); Neutrophils % 63.3 %; Nucleated Red Blood Cells % 0 %; Platelet Count 168 10^3/cmm (130-400); Red Blood Count 4.94 10^6/uL (4.1-5.3); Red Cell Distribution Width 15.8 % (12.1-15.1); White Blood Count 7.8 10^3/uL (4.0-10.0)
[2021-05-20 10:37] LABS: Alanine Aminotransferase 6 U/L (0-41); Albumin Level 3.9 g/dL (3.5-5.2); Alkaline Phosphatase 78 IU/L (40-130); Anion Gap 15.9 (5-19); Aspartate Amino Transferase 15 U/L (0-40); Blood Urea Nitrogen 8 mg/dL (8-23); Calcium 8.2 mg/dL (8.5-10.5); Carbon Dioxide 22 mmol/L (22-29); Chloride 103 mmol/L (98-107); Globulin 2.9 g/dL (1.3-4.6); Glucose 85 mg/dL (65-115); Osmolality Calculated 282 mOsm/kg (285-295); Potassium 3.9 mmol/L (3.5-5.1); Sodium 137 mmol/L (136-145); Total Bilirubin 0.4 mg/dL (0.15-1.2); Total Protein 6.8 g/dL (6.6-8.7)
[2021-05-20 11:15] LABS: Bilirubin Urine Neg (Negative); Blood Urine Neg (Negative); Glucose Urine UA Norm (Normal); Ketones Urine Negative (Negative); Leukocyte Esterase Urine Negative (Negative); Nitrate Urine Negative (Negative); Protein Urine Neg (Negative); Urine Appearance Clear (CLEAR); Urine Color Yellow (Yellow); Urobilinogen Urine Norm (Negative); pH Urine 5 (5-7)
[2021-05-20 11:25] LABS: Bacteria Urine TRACE /hpf; Fine Granular Casts Urine 0-4 /lpf; Hyaline Casts Urine 0-4 /lpf; Mucus Urine 2+ /hpf; Squamous Epithelial Cell Urine RARE /hpf (0-5); WBC Urine RARE /hpf (0-5)
[2021-05-20] MEDS: dextrose 5% 250 ML 300 ML IV (11:30)
[2021-05-20] MEDS: palonosetron 0.25 mg/5 mL SDV IV (11:32)
--- NOTE | 2021-05-21 12:51 | ONC FU_ITS ---
Dr. Castillo Patient Follow-Up Note Patient: Gulshan Braga Unit #: [id number]: 1950 Dicatated By: Xiang Castillo M.D.Date of Visit:May 20, 2021 Onc Med Follow-up/Prog Note Chief Complaint: Colon cancer. 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 He had presented with influenza pneumonia and non-ST elevation AL. During anticoagulation in preparation for coronary artery bypass graft surgery he developed significant rectal bleeding. A CT of the abdomen and pelvis on 05/11/2014 showed a mass in the distal sigmoid colon with soft tissue stranding, but no evidence of disease in the liver. There were 2 discrete nodules in the left lower lobe up to 1.1 cm with a patchy foci in the lingula and the left lower lobe. He required a cardiac bypass graft surgery on 05/19/2014. Preoperative staging PET/CT was reportedly performed, but results were not available. He then underwent left hemicolectomy on 07/03/2014. His surgical pathology revealed 6 x 5 cm low-grade adenocarcinoma, invading through muscularis propria into the subserosal adipose tissue. Two tumor deposits were present on the pericolonic adipose tissue. None of the 24 lymph nodes harvested were involved with metastatic disease. No lymphovascular or perineural invasion was identified. Luminal obstruction of more than 70% was present. Margins were negative. Thus, his disease was pathologic stage at least IIIB (pT3, N1c, MX). Mismatch repair analysis was normal, without defect identified. The patient had relocated to [place] from [place], to be closer to his daughter. He moved to the [facility] in August 2014 and established care with the [facility] in [place]. He was first seen by Dr. Vivas on 03/27/2015. His staging CT scans of the chest/abdomen/pelvis on 04/10/2014 showed increase in the two left lung nodules to 1.8 and 1.69 cm, concerning for metastatic disease. PET/CT on 05/05/2015 confirmed 2 FDG positive nodules in the left lung. A CT-guided biopsy on 06/11/2015 showed suspicious cells for malignancy, with only scant specimen available. Thus his disease was stage IV (M1b). Palliative FOLFOX and Avastin was recommended and was planned, but the patient decided against palliative chemotherapy. In the meantime, KRAS mutation was performed on the original biopsy, and mutations were not detected. He was then followed on observation/symptomatic management. Restaging CT scans of the chest, abdomen, and pelvis on 07/24/2016 showed increasing size left pulmonary nodules/mass with the largest mass of the left lung base measuring 3.1 x 2.6 cm. Overall, four nodules were present with continued slow progression since April 2015 study. I had seen him for a follow-up visit in October 2016. He was still not interested in attempting any chemotherapy treatment, and he then failed to return for further follow-up. On 03/15/2018 he presented to the emergency room with back pain. He had evaluation at that time with lumbar spine CT, which showed no acute findings. He was diagnosed with acute left-sided sciatica and treated symptomatically. He returned to the emergency room on 03/28/2018. His renal CT at that time showed a partially obstructing 4 x 5 mm ureteral calculus at the left ureteropelvic junction. Other findings included prominent portal and celiac lymph nodes, a mass adjacent to the caudate lobe of the liver measuring 2.3 cm, and a low-attenuation lesion in the hepatic dome which appeared suspicious for a metastatic lesion. Also noted were enlarging pulmonary masses in the left lower lobe. I had seen him for a follow-up visit on 04/13/2018. At that point I did request further evaluation with a next generation sequencing study. It showed no actionable mutations. The tumor was noted to be MSI stable. He continued observation/symptomatic management for the colon cancer. However, he was still having problems related to the kidney stone. He had continued follow-up with Dr. Mckeon and on 06/14/2018 he underwent extracorporeal shockwave lithotripsy for the left distal ureteral stone. He required temporary ureteral stent placement. He had no complications with the procedure, and the stent was later removed. At his follow-up visit on 04/29/2019 his CEA level had increased to 21.7 ng/mL compared to 8.9 ng/mL in April 2018. However, he was still not interested in considering any treatment. He was then seen for a follow-up visit again on 10/27/2019. At that point his CEA had further increased to 41.4 ng/mL. He then had restaging CT scans of the chest, abdomen, and pelvis on 11/07/2019. Those studies showed significant progression of metastatic disease with increasing pulmonary nodules in both lungs, the largest in the left upper lobe measuring 3.5 x 2.9 cm and in the left lower lobe measuring 4.6 x 4.9 cm. There was progression of metastatic lesions in the right hepatic lobe, the largest measuring 4.3 x 3.4 cm in the dome of the liver and 4.8 cm in the right hepatic lobe laterally. Also noted were multiple enlarged partially calcified lymph nodes in the love hepatis and celiac axis, bulky enlarged retrocrural and gastroesophageal lymph nodes, and bulky periaortic and retroperitoneal lymph nodes, all new from previous studies. With those findings he did opt to begin a trial of therapy with panitumumab as a single agent. He began cycle 1 on 11/17/2019. His further treatment was then put on hold due to a severe skin eruption, which developed despite having been given dexamethasone prophylaxis. During follow-up his rash slowly improved, and during that time there was a significant decline in his CEA level. As such, he opted to continue treatment, and he restarted panitumumab on 01/12/2020 with the dosage reduced to 2 mg/kg by IV infusion. He tolerated it with acceptable toxicity and he continued treatment at 2-week intervals. As of 02/07/2020 his CEA level had decreased to 18.9 ng/mL, and it then stabilized. Restaging CT scans on 04/13/2020 showed multiple metastatic pulmonary nodules throughout both lungs, with the size and number relatively unchanged compared to the December 2019 study. Heterogeneous and partially calcified metastatic lesions of both hepatic lobes also appeared stable, as did his bulky upper abdominal lymphadenopathy. Previously described tiny left pericolic gutter metastatic lesions appear to have resolved. A lytic lesion in the right iliac wing was noted to be stable. With those findings, he continued the panitumumab monotherapy at 2-week intervals. However, following his treatment on 05/15/2020 the panitumumab was put on hold due to worsening skin eruption and other side effects. He had continued with cycle 14 of panitumumab on 07/03/2020. However, at that point his CEA level had increased significantly, to 30.4 ng/mL, and I then opted to stop that treatment. His other medical illnesses include hypertension, hyperlipidemia, type II diabetes, and coronary artery disease. He has a history of smoking a pack and a half of cigarettes daily for 30 years, but he quit smoking more than 10 years ago. INTERIM HISTORY: On 09/04/2020 he began cycle 1 of 2nd line treatment with FOLFIRI chemotherapy in combination with Avastin. His baseline CEA level was 52.8 ng/mL. He reported increased fatigue and somnolence following that treatment. He did not experience any other toxicity acutely. At his follow-up visit on 09/18/2020 he continued to report severe fatigue and he opted to delay any further chemotherapy. He was not having diarrhea. Four days later he was taken to the emergency room after his daughter found him unresponsive at home. When she was able to arouse him she thought he was not moving his right arm and leg, and on that basis it was suspected he might be having an acute stroke. However, in the emergency room he was found to be significantly hypoglycemic. He was admitted to the hospital. His brain MRI showed no acute infarct or hemorrhage and no evidence of metastatic disease. He was discharged home on 09/25/2020. As of his follow-up visit on 11/20/2020 his performance status was still very marginal, and his chemotherapy remained on hold Restaging CT scans of the chest, abdomen, and pelvis on 12/14/2020 showed significant increase in size and number of metastatic sites throughout both lungs. The largest was in the left lower lobe abutting the pleura, measuring 7.9 x 6.6 x 5.2 cm. There was also progression of metastatic disease within the liver. Enhancing subcutaneous intramuscular nodules within the left abdominal wall were also suspicious for metastatic sites. A new left supraclavicular lymph node measuring 12 mm was highly suspicious for metastasis. I had seen him for a follow-up visit on 12/24/2020. At that time, he desired to continue further treatment. He returned on 12/31/2020 to begin a trial of therapy with a modified FOLFOX regimen in combination with Avastin. Both the oxaliplatin and 5-FU were administered at reduced dosages. He tolerated the 1st cycle pretty well and he continued with cycle 2 on 01/14/2021. His further treatment was delayed due to neuropathy. He was then able to proceed with cycle 3 on 02/11/2021. At that point his CEA level had stabilized. Due to concerns with treatment related toxicity, I opted to continue his further chemotherapy at a 4-week interval. He began cycle 4 on 03/11/2021. His treatment was then delayed because he was not feeling very good generally, though at that point there was no obvious disease progression. He did begin his 5th cycle on 04/22/2021. He is seen for a follow-up visit. He has been feeling pretty good generally. He says his energy is about average. He is able to do some light work at home. ECOG score is 1. His appetite comes and goes. His weight recently has been stable, though he is down over 30 pounds compared to September 2020. He does not have fever or night sweats. He has not had sore mouth or throat. He does not complain of cough. He has some shortness of breath with activity, but he says his breathing overall is pretty decent. He did have some chest pain this morning. He has not had any nausea/vomiting or abdominal pain. He does complain that his bowels are real loose. Bladder function is just so-so. He has been having pain in the right shoulder. He has no other joint or bone pain. He does not complain of headache or dizziness. He has some numbness in his fingertips. Medications: Aspirin 1 Tablet (of 81 mg) Tablet, chewable Oral daily, Atorvastatin Calcium (40 mg) Tablet Oral daily, Clopidogrel Bisulfate (75 mg) Tablet Oral daily, Magnesium (400 mg) Tablet Oral daily, Ondansetron 1 Tablet (of 4 mg) Tablet Dispersable Oral q 4 hours PRN, Vitamin D3 1 (2000 Units) Tablet Oral daily Allergies: Penicillin V Potassium Vital Signs: Performed on May 20, 2021 13:19 Height - 67.00 in Weight - 166.2 lbs (LOW) BSA - 1.87 sq.m BMI - 26.03 Temperature - 97.8 F (LOW) Pulse - 94 /min Respiration - 16 /min BP - 117/75 mm(hg) O2 Sat - 99 % Pain - 0 Fatigue - 5 Physical Examination: Constitutional - He appears somewhat weak generally, Eyes - Sclerae nonicteric. Conjunctivae clear, ENMT - No lesions noted in the oral cavity, Hematologic/Lymphatic - No cervical, clavicular, or axillary adenopathy, Respiratory - Lungs sound clear, Cardiovascular - Heart rhythm is irregular. There is a II/ systolic murmur. There is no gallop or rub noted, Abdomen - Mildly distended but soft. Liver and spleen are not enlarged. There is no abdominal mass or ascites noted and there is no inguinal adenopathy, Extremities - No edema, Neurologic - No focal neurologic deficits noted. Lab/Imaging: Test performed on May 20, 2021 09:40 Sodium 137 mmol/L Potassium 3.9 mmol/L Chloride 103 mmol/L CO2 22 mmol/L Anion Gap 15.9 BUN 8 mg/dL Creatinine 0.9 mg/dL Cr Clearance (Est) 80.0600 mL/min Glucose 85 mg/dL Osmolality - Calculated 282 mOsm/kg Calcium 8.2 mg/dL Protein, Total 6.8 g/dL Albumin 3.9 g/dL Globulin 2.9 g/dL Bilirubin, Total 0.4 mg/dL ALT (SGPT) 6 U/L AST (SGOT) 15 U/L Alkaline Phosphatase 78 IU/L WBC 7.8 10 3/uL RBC 4.94 10 6/uL HGB 13.0 g/dL HCT 41.4 % MCV 83.8 fl MCH 26.3 pg MCHC 31.4 g/dL RDW 15.8 % Platelet Count 168 10 3/cmm MPV 9.9 fL Neutrophils 4.91 10 3/uL Lymphocytes 1.6 10 3/uL Monocytes 0.9 10 3/uL Eosinophils 0.3 10 3/uL Basophils 0.1 10 3/uL Neutrophil % 63.3 % Lymphocyte % 20.9 % Monocyte % 11.0 % Eosinophil % 3.2 % Basophils % 1.2 % NRBC % 0 % CEA 58.0 ng/mL Problem List: 1. Low-grade adenocarcinoma of the distal sigmoid colon, stage IV (T3, N1c, M1b). He underwent left hemicolectomy on 07/03/2014. During subsequent follow-up he had enlarging, FDG avid pulmonary nodules, consistent with metastatic disease. He initially opted to have just symptomatic/supportive care. 2. He had non-ST elevation myocardial infarction at initial presentation, and he did require coronary artery bypass surgery prior to the colon resection. 3. Hypertension. 4. Hyperlipidemia. 5. Type II diabetes. 6. Nephrolithiasis. He underwent extracorporeal shockwave lithotripsy for a left distal ureteral stone in June 2018. Problems Addressed with this Encounter and Plan: Patient with low-grade adenocarcinoma of the sigmoid colon, stage IV, with multiple pulmonary metastases and with metastatic involvement in the liver and upper abdominal lymph nodes. He began panitumumab monotherapy in November 2019. During treatment there was a significant decline in his CEA level but with his restaging CT scans showing stable findings. Following his treatment on 05/15/2020 the panitumumab was put on hold due to worsening skin eruption and declining performance status. At that point his CEA level was stable at 13.0 ng/mL. As of his follow-up visit on 07/03/2020 there was a significant increase in the CEA level to 30.4 ng/mL. At that point I opted to stop any further treatment with panitumumab. He ultimately agreed to a trial of second line therapy with FOLFIRI chemotherapy in combination with Avastin. He began cycle 1 on 09/04/2020. His baseline CEA level was 52.8 ng/mL. He has had worsening fatigue/somnolence following that treatment, and as of his follow-up visit on 09/18/2020 he opted to delay any further chemotherapy. At that point he was not having diarrhea or other obvious chemotherapy related toxicities. However, 4 days later he was admitted to the hospital after he became severely hypoglycemic at home. There was some suspicion that also he may have had an acute stroke, but in retrospect that appears to have been unlikely. As of his follow-up visit on 11/20/2020 he still had fairly marginal performance status, and his chemotherapy remained on hold. His restaging CT scans on 12/14/2020 showed progression of bilateral pulmonary metastases and progression of metastatic involvement in the liver. The CT findings reviewed with the patient and his daughter, I also reviewed the CT images with them. We discussed options for further management. He decided to proceed with a trial of further chemotherapy with modified FOLFOX regimen in combination with Avastin. He began the first cycle on 12/31/2020. Both the oxaliplatin and the 5-FU were administered at reduced dosages. He initially tolerated it well, and he continued with cycle 2 on 01/14/2021. His further treatment was delayed due to neuropathy, but he was then able to continue with cycle 3 on 02/11/2021. At that point his CEA level had stabilized, and he then continued his treatment at 4-week intervals. He has now completed 5 cycles of treatment with modified FOLFOX/Avastin. He has been able to tolerate it with acceptable toxicity with the treatments administered at 4-week intervals. He has had evidence of response by CEA level and by CT scan. He has had some decline in performance status over the past 6 months, though recently he has been stable clinically. In the absence of any evidence of disease progression, he will proceed now with cycle 6 of modified FOLFOX/Avastin. The dosages remain the same. He will be scheduled for a follow-up visit in 4 weeks. Signed By: Xiang Castillo M.D. <<Signature on File>>
[2021-05-22] MEDS: sodium chloride 0.9% 1,000 ML 999 ML IV (15:05)
== END 2021-06-03 23:59 | disposition home or self-care (01) ==
LOC: ONCMED 14:15
PROVIDERS: PCP Family Medicine; Visit Provider Internal Medicine Medical Oncology
DX: Z51.11 Encounter for antineoplastic chemotherapy (principal); C18.7 Malignant neoplasm of sigmoid colon; C78.01 Secondary malignant neoplasm of right lung; C78.02 Secondary malignant neoplasm of left lung; C78.7 Secondary malignant neoplasm of liver and intrahepatic bile duct; C77.2 Secondary and unspecified malignant neoplasm of intra-abdominal lymph nodes; I25.2 Old myocardial infarction; Z95.5 Presence of coronary angioplasty implant and graft; I10 Essential (primary) hypertension; E78.5 Hyperlipidemia, unspecified; E11.9 Type 2 diabetes mellitus without complications; N20.0 Calculus of kidney; Z79.899 Other long term (current) drug therapy
CPT/HCPCS: 80053; 81001; 82378; 85025; 96360; 96367; 96368; 96413; 96415; 96416; 96417; 99215; J0640; J1100; J2469; J7030; J9035; J9190; J9263

== ENCOUNTER 2021-06-19 06:48 | Outpatient (RCR) | payer MEDICARE, OTHER, SELFPAY ==
[2021-06-17 09:01] LABS: Basophils # 0.1 10^3/uL (0.0-0.1); Basophils % 1.4 %; Eosinophils # 0.2 10^3/uL (0.0-0.8); Eosinophils % 2.6 %; Hematocrit 40.8 % (42.0-52.0); Hemoglobin 12.7 g/dL (11.7-16.6); Lymphocytes # 1.8 10^3/uL (0.8-4.8); Lymphocytes % 20.6 %; Mean Corpuscular HGB Conc 31.1 g/dL (30.0-36.0); Mean Corpuscular Hemoglobin 26.5 pg (28.0-34.0); Mean Platelet Volume 10.6 fL (7.4-10.4); Monocytes % 11.4 %; Neutrophils # 5.57 10^3/uL (1.8-7.7); Neutrophils % 63.5 %; Nucleated Red Blood Cells % 0 %; Platelet Count 158 10^3/cmm (130-400); Red Cell Distribution Width 16.2 % (12.1-15.1); White Blood Count 8.8 10^3/uL (4.0-10.0)
[2021-06-17 09:20] LABS: Estmated Average Glucose 97
[2021-06-17 09:21] LABS: Carcinoembryonic Antigen 56.7 ng/mL (0.0-4.7)
[2021-06-17 09:32] LABS: Alanine Aminotransferase 9 U/L (0-41); Alkaline Phosphatase 72 IU/L (40-130); Blood Urea Nitrogen 10 mg/dL (8-23); Calcium 8.3 mg/dL (8.5-10.5); Carbon Dioxide 20 mmol/L (22-29); Chloride 107 mmol/L (98-107); Globulin 2.9 g/dL (1.3-4.6); Glucose 88 mg/dL (65-115); Osmolality Calculated 284 mOsm/kg (285-295); Sodium 138 mmol/L (136-145); Total Bilirubin 0.6 mg/dL (0.15-1.2); Total Protein 6.9 g/dL (6.6-8.7)
[2021-06-17 09:36] LABS: Anion Gap 15.2 (5-19); Aspartate Amino Transferase 22 U/L (0-40); Potassium 4.2 mmol/L (3.5-5.1)
[2021-06-17] MEDS: palonosetron 0.25 mg/5 mL SDV IV (10:58)
[2021-06-17] MEDS: dextrose 5% 250 ML 75 ML IV (10:58)
--- NOTE | 2021-06-17 14:54 | ONC FU_ITS ---
Sadie Arevalo Progress Note Patient: Gulshan Braga Unit #: [id number]: 1950 Dicatated By: Sadie Arevalo N.P.Date of Visit:Jun 17, 2021 Onc MED Follow-up/Prog Note Chief Complaint: Colon cancer. 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 He had presented with influenza pneumonia and non-ST elevation PA. During anticoagulation in preparation for coronary artery bypass graft surgery he developed significant rectal bleeding. A CT of the abdomen and pelvis on 05/11/2014 showed a mass in the distal sigmoid colon with soft tissue stranding, but no evidence of disease in the liver. There were 2 discrete nodules in the left lower lobe up to 1.1 cm with a patchy foci in the lingula and the left lower lobe. He required a cardiac bypass graft surgery on 05/19/2014. Preoperative staging PET/CT was reportedly performed, but results were not available. He then underwent left hemicolectomy on 07/03/2014. His surgical pathology revealed 6 x 5 cm low-grade adenocarcinoma, invading through muscularis propria into the subserosal adipose tissue. Two tumor deposits were present on the pericolonic adipose tissue. None of the 24 lymph nodes harvested were involved with metastatic disease. No lymphovascular or perineural invasion was identified. Luminal obstruction of more than 70% was present. Margins were negative. Thus, his disease was pathologic stage at least IIIB (pT3, N1c, MX). Mismatch repair analysis was normal, without defect identified. The patient had relocated to [place] from [place], to be closer to his daughter. He moved to the [facility] in August 2014 and established care with the [facility] in [place]. He was first seen by Dr. Vivas on 03/27/2015. His staging CT scans of the chest/abdomen/pelvis on 04/10/2014 showed increase in the two left lung nodules to 1.8 and 1.69 cm, concerning for metastatic disease. PET/CT on 05/05/2015 confirmed 2 FDG positive nodules in the left lung. A CT-guided biopsy on 06/11/2015 showed suspicious cells for malignancy, with only scant specimen available. Thus his disease was stage IV (M1b). Palliative FOLFOX and Avastin was recommended and was planned, but the patient decided against palliative chemotherapy. In the meantime, KRAS mutation was performed on the original biopsy, and mutations were not detected. He was then followed on observation/symptomatic management. Restaging CT scans of the chest, abdomen, and pelvis on 07/24/2016 showed increasing size left pulmonary nodules/mass with the largest mass of the left lung base measuring 3.1 x 2.6 cm. Overall, four nodules were present with continued slow progression since April 2015 study. I had seen him for a follow-up visit in October 2016. He was still not interested in attempting any chemotherapy treatment, and he then failed to return for further follow-up. On 03/15/2018 he presented to the emergency room with back pain. He had evaluation at that time with lumbar spine CT, which showed no acute findings. He was diagnosed with acute left-sided sciatica and treated symptomatically. He returned to the emergency room on 03/28/2018. His renal CT at that time showed a partially obstructing 4 x 5 mm ureteral calculus at the left ureteropelvic junction. Other findings included prominent portal and celiac lymph nodes, a mass adjacent to the caudate lobe of the liver measuring 2.3 cm, and a low-attenuation lesion in the hepatic dome which appeared suspicious for a metastatic lesion. Also noted were enlarging pulmonary masses in the left lower lobe. Dr. Castillo had seen him for a follow-up visit on 04/13/2018. At that point Dr. Castillo he has requested further evaluation with a next generation sequencing study. It showed no actionable mutations. The tumor was noted to be MSI stable. He continued observation/symptomatic management for the colon cancer. However, he was still having problems related to the kidney stone. He had continued follow-up with Dr. Mckeon and on 06/14/2018 he underwent extracorporeal shockwave lithotripsy for the left distal ureteral stone. He required temporary ureteral stent placement. He had no complications with the procedure, and the stent was later removed. At his follow-up visit on 04/29/2019 his CEA level had increased to 21.7 ng/mL compared to 8.9 ng/mL in April 2018. However, he was still not interested in considering any treatment. He was then seen for a follow-up visit again on 10/27/2019. At that point his CEA had further increased to 41.4 ng/mL. He then had restaging CT scans of the chest, abdomen, and pelvis on 11/07/2019. Those studies showed significant progression of metastatic disease with increasing pulmonary nodules in both lungs, the largest in the left upper lobe measuring 3.5 x 2.9 cm and in the left lower lobe measuring 4.6 x 4.9 cm. There was progression of metastatic lesions in the right hepatic lobe, the largest measuring 4.3 x 3.4 cm in the dome of the liver and 4.8 cm in the right hepatic lobe laterally. Also noted were multiple enlarged partially calcified lymph nodes in the love hepatis and celiac axis, bulky enlarged retrocrural and gastroesophageal lymph nodes, and bulky periaortic and retroperitoneal lymph nodes, all new from previous studies. With those findings he did opt to begin a trial of therapy with panitumumab as a single agent. He began cycle 1 on 11/17/2019. His further treatment was then put on hold due to a severe skin eruption, which developed despite having been given dexamethasone prophylaxis. During follow-up his rash slowly improved, and during that time there was a significant decline in his CEA level. As such, he opted to continue treatment, and he restarted panitumumab on 01/12/2020 with the dosage reduced to 2 mg/kg by IV infusion. He tolerated it with acceptable toxicity and he continued treatment at 2-week intervals. As of 02/07/2020 his CEA level had decreased to 18.9 ng/mL, and it then stabilized. Restaging CT scans on 04/13/2020 showed multiple metastatic pulmonary nodules throughout both lungs, with the size and number relatively unchanged compared to the December 2019 study. Heterogeneous and partially calcified metastatic lesions of both hepatic lobes also appeared stable, as did his bulky upper abdominal lymphadenopathy. Previously described tiny left pericolic gutter metastatic lesions appear to have resolved. A lytic lesion in the right iliac wing was noted to be stable. With those findings, he continued the panitumumab monotherapy at 2-week intervals. However, following his treatment on 05/15/2020 the panitumumab was put on hold due to worsening skin eruption and other side effects. He had continued with cycle 14 of panitumumab on 07/03/2020. However, at that point his CEA level had increased significantly, to 30.4 ng/mL, and I then opted to stop that treatment. His other medical illnesses include hypertension, hyperlipidemia, type II diabetes, and coronary artery disease. He has a history of smoking a pack and a half of cigarettes daily for 30 years, but he quit smoking more than 10 years ago. INTERIM HISTORY: On 09/04/2020 he began cycle 1 of 2nd line treatment with FOLFIRI chemotherapy in combination with Avastin. His baseline CEA level was 52.8 ng/mL. He reported increased fatigue and somnolence following that treatment. He did not experience any other toxicity acutely. At his follow-up visit on 09/18/2020 he continued to report severe fatigue and he opted to delay any further chemotherapy. He was not having diarrhea. Four days later he was taken to the emergency room after his daughter found him unresponsive at home. When she was able to arouse him she thought he was not moving his right arm and leg, and on that basis it was suspected he might be having an acute stroke. However, in the emergency room he was found to be significantly hypoglycemic. He was admitted to the hospital. His brain MRI showed no acute infarct or hemorrhage and no evidence of metastatic disease. He was discharged home on 09/25/2020. As of his follow-up visit on 11/20/2020 his performance status was still very marginal, and his chemotherapy remained on hold Restaging CT scans of the chest, abdomen, and pelvis on 12/14/2020 showed significant increase in size and number of metastatic sites throughout both lungs. The largest was in the left lower lobe abutting the pleura, measuring 7.9 x 6.6 x 5.2 cm. There was also progression of metastatic disease within the liver. Enhancing subcutaneous intramuscular nodules within the left abdominal wall were also suspicious for metastatic sites. A new left supraclavicular lymph node measuring 12 mm was highly suspicious for metastasis. Dr. Castillo had seen him for a follow-up visit on 12/24/2020. At that time, he desired to continue further treatment. He returned on 12/31/2020 to begin a trial of therapy with a modified FOLFOX regimen in combination with Avastin. Both the oxaliplatin and 5-FU were administered at reduced dosages. He tolerated the 1st cycle pretty well and he continued with cycle 2 on 01/14/2021. His further treatment was delayed due to neuropathy. He was then able to proceed with cycle 3 on 02/11/2021. At that point his CEA level had stabilized. Due to concerns with treatment related toxicity, I opted to continue his further chemotherapy at a 4-week interval. He began cycle 4 on 03/11/2021. His treatment was then delayed because he was not feeling very good generally, though at that point there was no obvious disease progression. He did begin his 5th cycle on 04/22/2021. Patient presents today for follow-up. He states he is feeling pretty good. His appetite has been good. He denies fever, chills, night sweats. No mouth sores, sore throat, or sinus drainage. He has mild shortness of breath with activity. No chest pain. He denies nausea or vomiting. He does have diarrhea after meals that has been going on since he was diagnosed with colon cancer. He denies any urinary symptoms. No joint or muscle pain. No headaches or dizziness. He has some tingling and numbness in his fingertips. Review Of Symptoms: See above. Past Medical History: Coronary artery disease Diabetes type I Hyperlipidemia Hypertension Sleep Apnea in 2016 Past Surgical History: Appendectomy Cataract excision Cholecystectomy Colonoscopy Coronary artery bypass PORT PLACEMENT DR. ABIMBOLA Peter vaccine #2 in 2020 Allergies: Penicillin V Potassium Medications: Aspirin 1 Tablet (of 81 mg) Tablet, chewable Oral daily Atorvastatin Calcium (40 mg) Tablet Oral daily Clopidogrel Bisulfate (75 mg) Tablet Oral daily Magnesium (400 mg) Tablet Oral daily Ondansetron 1 Tablet (of 4 mg) Tablet Dispersable Oral q 4 hours PRN Vitamin D3 1 (2000 Units) Tablet Oral daily Family History: Mr. Braga's mother is . Mr. Braga's father is . unknown family history, brother with history of heart disease. Social History: Mr. Braga is and he is retired. Mr. Braga quit smoking 13 years ago but had smoked 1.5 packs/day for 30 years. He has indicated exposure to the following products: cigarettes. Mr. Braga reports the following support systems: lives alone, lives in own house, supportive family/friends willing to assist with needs, and adequate transportation available for expected visits. His diet consists of regular meals. He indicates his activity level as: daily activities. Physical Examination: Performed on Jun 17, 2021 11:14: Height - 67.00 in, Weight - 163.0 lbs (LOW), BSA - 1.85 sq.m, BMI - 25.53, Temperature - 98.3 F (LOW), Pulse - 79 /min, Respiration - 18 /min, BP - 115/70 mm(hg), O2 Sat - 98 %, Pain - 0, and Fatigue - 5. Performance Status: 1 - No physically strenuous activity, but ambulatory and able to carry out light or sedentary work (e.g. office work, light house work). (ECOG) Constitutional Alert, cooperative, oriented. Mood and affect appropriate. Appears close to chronological age. Well nourished. Well developed. Head Normocephalic; no scars. Respiratory Lungs are clear to auscultation without rhonchi or wheezing. Cardiovascular Regular rate and rhythm of heart without murmurs, gallops or rubs. Abdomen Non-tender, non-distended, no masses, ascites or hepatosplenomegaly. Good bowel sounds. No guarding or rebound tenderness. Extremities No visible deformities, no cyanosis, clubbing or edema. Pulses 3+ and equal bilaterally. Psychiatric Alert and oriented times three. Coherent speech. Verbalizes understanding of our discussions today. Laboratory: Test performed on Jun 17, 2021 08:45 Sodium 138 mmol/L Potassium 4.2 mmol/L Chloride 107 mmol/L Est Avg Glucose (eAG) 97 mg/dL CO2 20 mmol/L Anion Gap 15.2 BUN 10 mg/dL Creatinine 0.9 mg/dL Cr Clearance (Est) 80.0600 mL/min Glucose 88 mg/dL Osmolality - Calculated 284 mOsm/kg Calcium 8.3 mg/dL Protein, Total 6.9 g/dL Albumin 4.0 g/dL Globulin 2.9 g/dL Bilirubin, Total 0.6 mg/dL ALT (SGPT) 9 U/L AST (SGOT) 22 U/L Alkaline Phosphatase 72 IU/L Hemoglobin A1C % 5.0 % WBC 8.8 10 3/uL RBC 4.80 10 6/uL HGB 12.7 g/dL HCT 40.8 % MCV 85.0 fl MCH 26.5 pg MCHC 31.1 g/dL RDW 16.2 % Platelet Count 158 10 3/cmm MPV 10.6 fL Neutrophils 5.57 10 3/uL Lymphocytes 1.8 10 3/uL Monocytes 1.0 10 3/uL Eosinophils 0.2 10 3/uL Basophils 0.1 10 3/uL Neutrophil % 63.5 % Lymphocyte % 20.6 % Monocyte % 11.4 % Eosinophil % 2.6 % Basophils % 1.4 % NRBC % 0 % CEA 56.7 ng/mL Test performed on May 20, 2021 10:40 Ua Color Yellow Ua Appearance Clear Ua pH 5 Ua Specific Jackson 1.030 Ua Glucose Norm Ua Ketones Negative Ua Protein Neg Ua Blood Neg Ua Bilirubin Neg Ua Nitrites Negative Ua Leukocyte Esterase Negative Ua Micro: Fine Granular Casts 0-4 /lpf Ua Micro: Hyaline Casts 0-4 /lpf Ua Micro: WBC RARE /hpf Ua Micro: RBC NONE /hpf Ua Micro: Squam Epith Cells RARE /hpf Ua Micro: Bacteria TRACE /hpf Ua Micro: Mucous 2+ /hpf Test performed on Jan 28, 2021 08:15 Ferritin 300 ng/mL Iron 53 mcg/dL Iron Binding Capacity (TIBC) 275 mcg/dl % Iron Saturation 19.2 % UIBC 222 mcg/dL Impression: 1. Low-grade adenocarcinoma of the distal sigmoid colon, stage IV (T3, N1c, M1b). He underwent left hemicolectomy on 07/03/2014. During subsequent follow-up he had enlarging, FDG avid pulmonary nodules, consistent with metastatic disease. He initially opted to have just symptomatic/supportive care. 2. He had non-ST elevation myocardial infarction at initial presentation, and he did require coronary artery bypass surgery prior to the colon resection. 3. Hypertension. 4. Hyperlipidemia. 5. Type II diabetes. 6. Nephrolithiasis. He underwent extracorporeal shockwave lithotripsy for a left distal ureteral stone in June 2018. Plan: Patient with low-grade adenocarcinoma of the sigmoid colon, stage IV, with multiple pulmonary metastases and with metastatic involvement in the liver and upper abdominal lymph nodes. He began panitumumab monotherapy in November 2019. During treatment there was a significant decline in his CEA level but with his restaging CT scans showing stable findings. Following his treatment on 05/15/2020 the panitumumab was put on hold due to worsening skin eruption and declining performance status. At that point his CEA level was stable at 13.0 ng/mL. As of his follow-up visit on 07/03/2020 there was a significant increase in the CEA level to 30.4 ng/mL. At that point I opted to stop any further treatment with panitumumab. He ultimately agreed to a trial of second line therapy with FOLFIRI chemotherapy in combination with Avastin. He began cycle 1 on 09/04/2020. His baseline CEA level was 52.8 ng/mL. He has had worsening fatigue/somnolence following that treatment, and as of his follow-up visit on 09/18/2020 he opted to delay any further chemotherapy. At that point he was not having diarrhea or other obvious chemotherapy related toxicities. However, 4 days later he was admitted to the hospital after he became severely hypoglycemic at home. There was some suspicion that also he may have had an acute stroke, but in retrospect that appears to have been unlikely. As of his follow-up visit on 11/20/2020 he still had fairly marginal performance status, and his chemotherapy remained on hold. His restaging CT scans on 12/14/2020 showed progression of bilateral pulmonary metastases and progression of metastatic involvement in the liver. The CT findings reviewed with the patient and his daughter, I also reviewed the CT images with them. We discussed options for further management. He decided to proceed with a trial of further chemotherapy with modified FOLFOX regimen in combination with Avastin. He began the first cycle on 12/31/2020. Both the oxaliplatin and the 5-FU were administered at reduced dosages. He initially tolerated it well, and he continued with cycle 2 on 01/14/2021. His further treatment was delayed due to neuropathy, but he was then able to continue with cycle 3 on 02/11/2021. At that point his CEA level had stabilized, and he then continued his treatment at 4-week intervals. Patient presents today for modified FOLFOX in combination with Avastin. He has been tolerating the treatment well at 4-week intervals. His CEA level is at 56.7 which is a decrease from 4 weeks ago where it was 58. We will proceed with cycle 7-day 1 of FOLFOX with Avastin at reduced dose as given previously. He will follow-up in 4 weeks with CBC, CMP, CEA level. Signed By: Sadie Arevalo N.Sushil. <<Signature on File>>
[2021-06-19] MEDS: sodium chloride 0.9% 1,000 ML 999 ML IV ×2 (14:15→14:25)
== END 2021-07-04 23:59 | disposition home or self-care (01) ==
LOC: ONCMED 06:48
PROVIDERS: Nurse Practitioner Family; PCP Family Medicine; Visit Provider Nurse Practitioner
DX: Z51.11 Encounter for antineoplastic chemotherapy (principal); C18.7 Malignant neoplasm of sigmoid colon; C78.01 Secondary malignant neoplasm of right lung; C78.02 Secondary malignant neoplasm of left lung; C78.7 Secondary malignant neoplasm of liver and intrahepatic bile duct; C77.2 Secondary and unspecified malignant neoplasm of intra-abdominal lymph nodes; E11.59 Type 2 diabetes mellitus with other circulatory complications; I25.10 Atherosclerotic heart disease of native coronary artery without angina pectoris; I25.2 Old myocardial infarction; Z95.5 Presence of coronary angioplasty implant and graft; I10 Essential (primary) hypertension; E78.5 Hyperlipidemia, unspecified; N20.0 Calculus of kidney; Z79.899 Other long term (current) drug therapy
CPT/HCPCS: 80053; 82378; 83036; 85025; 96360; 96367; 96368; 96375; 96413; 96415; 96416; 96417; 99215; J0640; J1100; J2469; J7030; J9035; J9190; J9263

== ENCOUNTER 2021-06-21 06:38 | Outpatient (CLI) | payer MEDICARE, OTHER, SELFPAY ==
--- NOTE | 2021-06-21 07:00 | USCV_ITS ---
Gulshan Braga Age: 71 Gender: M : 1950 Exam Date: 06/21/2021 06:55 Ordering Phys: Gaviota Jin MD ([email or web address]) Technologist: Shabnam Cid [place]am Location[place] [facility] [place]ication: CARDIOMYOPATHY ON CHEMO BP: 118 / 90 HR: 75 Rhythm: Sinus Technical Quality: Adequate MEASUREMENTS (Male / Female) Normal Values 2D ECHO LV Diastolic Diameter PLAX 4.9 cm 4.2 - 5.9 / 3.9 - 5.3 cm LV Systolic Diameter PLAX 3.7 cm LV Chamber Size 4.1 cm IVS Diastolic Thickness 1.1 cm 0.6 - 1.0 / 0.6 - 0.9 cm IVS Systolic Thickness 1.0 cm LVPW Diastolic Thickness 1.1 cm 0.6 - 1.0 / 0.6 - 0.9 cm LVPW Systolic Thickness 1.3 cm RV Chamber Size 3.3 cm LVOT Diameter 2.0 cm LV Ejection Fraction 2D Teich 50.0 % LV Ejection Fraction MOD 2C 37.9 % LV Ejection Fraction 2C AL 38.8 % LA Diameter 2.5 cm LA Width 2.8 cm LA Height 3.4 cm RA Width 2.7 cm RA Height 4.5 cm Aorta at Sinotubular Diameter 2.9 cm M-MODE Aortic Annulus Diameter 4.2 cm LA Ao Ratio MM 0.8 MV E Point Septal Separation 1.0 cm DOPPLER AV Peak Velocity 112.0 cm/s LVOT Peak Velocity 81.0 cm/s AV Area Cont Eq vti 2.1 cm squared AV Area Cont Eq pk 2.3 cm squared MV Area PHT 4.9 cm squared Mitral E to A Ratio 0.7 MV E' Velocity 43.0 cm/s Mitral E to MV E' Ratio 9.3 Mitral E to LV E' Lateral Ratio 6.2 Mitral E to LV E' Septal Ratio 18.6 TR Peak Velocity 228.6 cm/s TR Peak Gradient 20.9 mmHg TR Mean Velocity 158.0 cm/s TR Mean Gradient 12.2 mmHg TR Velocity Time Integral 54.3 cm TV Peak E Velocity 70.0 cm/s Right Atrial Pressure 3.0 mmHg Pulmonary Artery Systolic Pressu 23.9 mmHg PV Peak Velocity 65.0 cm/s RV Acceleration Time 0.1 s RV Ejection Time 0.3 s RV AcT/ET 0.2 FINDINGS Left Ventricle Normal left ventricular cavity size. Mildly decreased left ventricular systolic function. Left ventricular ejection fraction is estimated at 50-55%. Mild global hypokinesis more prononunced in septal wall. Abnormal septal motion. Grade I diastolic dysfunction (abnormal relaxation filling pattern), normal to mildly elevated filling pressures. Right Ventricle Normal right ventricular size and systolic function. Right ventricular systolic pressure 23.9 mmHg. Right Atrium Normal right atrial size. Left Atrium Normal left atrial size. Mitral Valve Mildly thickened mitral valve. No mitral valve stenosis. Trace mitral valve regurgitation. Aortic Valve Structurally normal trileaflet aortic valve. No aortic valve stenosis. No aortic valve regurgitation. Tricuspid Valve Structurally normal tricuspid valve. No tricuspid valve stenosis. Trace tricuspid valve regurgitation. Pulmonic Valve Structurally normal pulmonic valve. No pulmonary valve stenosis. Trace pulmonary valve regurgitation. Pericardium No pericardial effusion. Aorta Normal size aortic root and proximal ascending aorta. Small plaque seen in the aorta. CONCLUSIONS 1. Normal left ventricular cavity size. Mildly decreased left ventricular systolic function. Left ventricular ejection fraction is estimated at 50-55%. Mild global hypokinesis more prononunced in septal wall. Abnormal septal motion. Grade I diastolic dysfunction (abnormal relaxation filling pattern), normal to mildly elevated filling pressures. 2. Normal right ventricular size and systolic function. 3. No significant valvular abnormality. 4. When compared to previous echocardiogram report dated 09/24/20, LV function may have decreased slightly. Lourdes Sharif MD (Electronically Signed) Final Date: 23 June 2021 12:38 S
== END 2021-06-21 06:39 | disposition home or self-care (01) ==
LOC: RAD 06:39
PROVIDERS: PCP Family Medicine; Visit Provider Internal Medicine Cardiovascular Disease
DX: I25.5 Ischemic cardiomyopathy (principal); I42.7 Cardiomyopathy due to drug and external agent; I50.9 Heart failure, unspecified; R06.02 Shortness of breath; T45.1X5A Adverse effect of antineoplastic and immunosuppressive drugs, initial encounter
CPT/HCPCS: 93306

== ENCOUNTER 2021-07-15 07:44 | Outpatient (RCR) | payer MEDICARE, OTHER, SELFPAY ==
[2021-07-15 08:47] LABS: Basophils # 0.1 10^3/uL (0.0-0.1); Basophils % 1.5 %; Eosinophils # 0.2 10^3/uL (0.0-0.8); Eosinophils % 2.6 %; Hematocrit 40.8 % (42.0-52.0); Hemoglobin 12.9 g/dL (11.7-16.6); Lymphocytes # 1.8 10^3/uL (0.8-4.8); Lymphocytes % 21.7 %; Mean Corpuscular HGB Conc 31.6 g/dL (30.0-36.0); Mean Corpuscular Hemoglobin 26.8 pg (28.0-34.0); Mean Corpuscular Volume 84.8 fl (80-94); Mean Platelet Volume 10.4 fL (7.4-10.4); Monocytes # 0.9 10^3/uL (0.2-0.9); Monocytes % 10.9 %; Neutrophils # 5.09 10^3/uL (1.8-7.7); Neutrophils % 62.9 %; Nucleated Red Blood Cells % 0 %; Platelet Count 164 10^3/cmm (130-400); Red Blood Count 4.81 10^6/uL (4.1-5.3); Red Cell Distribution Width 16.2 % (12.1-15.1); White Blood Count 8.1 10^3/uL (4.0-10.0)
[2021-07-15 09:07] LABS: Carcinoembryonic Antigen 54.7 ng/mL (0.0-4.7)
[2021-07-15 09:19] LABS: Alanine Aminotransferase 7 U/L (0-41); Albumin Level 3.9 g/dL (3.5-5.2); Alkaline Phosphatase 79 IU/L (40-130); Anion Gap 16.1 (5-19); Aspartate Amino Transferase 15 U/L (0-40); Blood Urea Nitrogen 9 mg/dL (8-23); Calcium 9.2 mg/dL (8.5-10.5); Carbon Dioxide 20 mmol/L (22-29); Chloride 105 mmol/L (98-107); Globulin 3.1 g/dL (1.3-4.6); Glucose 85 mg/dL (65-115); Osmolality Calculated 282 mOsm/kg (285-295); Potassium 4.1 mmol/L (3.5-5.1); Sodium 137 mmol/L (136-145); Total Bilirubin 0.5 mg/dL (0.15-1.2)
[2021-07-15] MEDS: ondansetron 2 mg/ML SDV 2 mL 8 MG IV (09:38)
[2021-07-15] MEDS: sodium chloride 0.9% 1,000 ML 999 ML IV (09:40)
--- NOTE | 2021-07-15 17:41 | ONC FU_ITS ---
Dr. Castillo Patient Follow-Up Note Patient: Gulshan Braga Unit #: [id number]: 1950 Dicatated By: Xiang Castillo M.D.Date of Visit:Jul 15, 2021 Onc Med Follow-up/Prog Note Chief Complaint: Colon cancer. 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 He had presented with influenza pneumonia and non-ST elevation MT. During anticoagulation in preparation for coronary artery bypass graft surgery he developed significant rectal bleeding. A CT of the abdomen and pelvis on 05/11/2014 showed a mass in the distal sigmoid colon with soft tissue stranding, but no evidence of disease in the liver. There were 2 discrete nodules in the left lower lobe up to 1.1 cm with a patchy foci in the lingula and the left lower lobe. He required a cardiac bypass graft surgery on 05/19/2014. Preoperative staging PET/CT was reportedly performed, but results were not available. He then underwent left hemicolectomy on 07/03/2014. His surgical pathology revealed 6 x 5 cm low-grade adenocarcinoma, invading through muscularis propria into the subserosal adipose tissue. Two tumor deposits were present on the pericolonic adipose tissue. None of the 24 lymph nodes harvested were involved with metastatic disease. No lymphovascular or perineural invasion was identified. Luminal obstruction of more than 70% was present. Margins were negative. Thus, his disease was pathologic stage at least IIIB (pT3, N1c, MX). Mismatch repair analysis was normal, without defect identified. The patient had relocated to [place] from [place], to be closer to his daughter. He moved to the [facility] in August 2014 and established care with the [facility] in [place]. He was first seen by Dr. Vivas on 03/27/2015. His staging CT scans of the chest/abdomen/pelvis on 04/10/2014 showed increase in the two left lung nodules to 1.8 and 1.69 cm, concerning for metastatic disease. PET/CT on 05/05/2015 confirmed 2 FDG positive nodules in the left lung. A CT-guided biopsy on 06/11/2015 showed suspicious cells for malignancy, with only scant specimen available. Thus his disease was stage IV (M1b). Palliative FOLFOX and Avastin was recommended and was planned, but the patient decided against palliative chemotherapy. In the meantime, KRAS mutation was performed on the original biopsy, and mutations were not detected. He was then followed on observation/symptomatic management. Restaging CT scans of the chest, abdomen, and pelvis on 07/24/2016 showed increasing size left pulmonary nodules/mass with the largest mass of the left lung base measuring 3.1 x 2.6 cm. Overall, four nodules were present with continued slow progression since April 2015 study. I had seen him for a follow-up visit in October 2016. He was still not interested in attempting any chemotherapy treatment, and he then failed to return for further follow-up. On 03/15/2018 he presented to the emergency room with back pain. He had evaluation at that time with lumbar spine CT, which showed no acute findings. He was diagnosed with acute left-sided sciatica and treated symptomatically. He returned to the emergency room on 03/28/2018. His renal CT at that time showed a partially obstructing 4 x 5 mm ureteral calculus at the left ureteropelvic junction. Other findings included prominent portal and celiac lymph nodes, a mass adjacent to the caudate lobe of the liver measuring 2.3 cm, and a low-attenuation lesion in the hepatic dome which appeared suspicious for a metastatic lesion. Also noted were enlarging pulmonary masses in the left lower lobe. I had seen him for a follow-up visit on 04/13/2018. At that point I did request further evaluation with a next generation sequencing study. It showed no actionable mutations. The tumor was noted to be MSI stable. He continued observation/symptomatic management for the colon cancer. However, he was still having problems related to the kidney stone. He had continued follow-up with Dr. Mckeon and on 06/14/2018 he underwent extracorporeal shockwave lithotripsy for the left distal ureteral stone. He required temporary ureteral stent placement. He had no complications with the procedure, and the stent was later removed. At his follow-up visit on 04/29/2019 his CEA level had increased to 21.7 ng/mL compared to 8.9 ng/mL in April 2018. However, he was still not interested in considering any treatment. He was then seen for a follow-up visit again on 10/27/2019. At that point his CEA had further increased to 41.4 ng/mL. He then had restaging CT scans of the chest, abdomen, and pelvis on 11/07/2019. Those studies showed significant progression of metastatic disease with increasing pulmonary nodules in both lungs, the largest in the left upper lobe measuring 3.5 x 2.9 cm and in the left lower lobe measuring 4.6 x 4.9 cm. There was progression of metastatic lesions in the right hepatic lobe, the largest measuring 4.3 x 3.4 cm in the dome of the liver and 4.8 cm in the right hepatic lobe laterally. Also noted were multiple enlarged partially calcified lymph nodes in the love hepatis and celiac axis, bulky enlarged retrocrural and gastroesophageal lymph nodes, and bulky periaortic and retroperitoneal lymph nodes, all new from previous studies. With those findings he did opt to begin a trial of therapy with panitumumab as a single agent. He began cycle 1 on 11/17/2019. His further treatment was then put on hold due to a severe skin eruption, which developed despite having been given dexamethasone prophylaxis. During follow-up his rash slowly improved, and during that time there was a significant decline in his CEA level. As such, he opted to continue treatment, and he restarted panitumumab on 01/12/2020 with the dosage reduced to 2 mg/kg by IV infusion. He tolerated it with acceptable toxicity and he continued treatment at 2-week intervals. As of 02/07/2020 his CEA level had decreased to 18.9 ng/mL, and it then stabilized. Restaging CT scans on 04/13/2020 showed multiple metastatic pulmonary nodules throughout both lungs, with the size and number relatively unchanged compared to the December 2019 study. Heterogeneous and partially calcified metastatic lesions of both hepatic lobes also appeared stable, as did his bulky upper abdominal lymphadenopathy. Previously described tiny left pericolic gutter metastatic lesions appear to have resolved. A lytic lesion in the right iliac wing was noted to be stable. With those findings, he continued the panitumumab monotherapy at 2-week intervals. However, following his treatment on 05/15/2020 the panitumumab was put on hold due to worsening skin eruption and other side effects. He had continued with cycle 14 of panitumumab on 07/03/2020. However, at that point his CEA level had increased significantly, to 30.4 ng/mL, and I then opted to stop that treatment. His other medical illnesses include hypertension, hyperlipidemia, type II diabetes, and coronary artery disease. He has a history of smoking a pack and a half of cigarettes daily for 30 years, but he quit smoking more than 10 years ago. INTERIM HISTORY: On 09/04/2020 he began cycle 1 of 2nd line treatment with FOLFIRI chemotherapy in combination with Avastin. His baseline CEA level was 52.8 ng/mL. He reported increased fatigue and somnolence following that treatment. He did not experience any other toxicity acutely. At his follow-up visit on 09/18/2020 he continued to report severe fatigue and he opted to delay any further chemotherapy. He was not having diarrhea. Four days later he was taken to the emergency room after his daughter found him unresponsive at home. When she was able to arouse him she thought he was not moving his right arm and leg, and on that basis it was suspected he might be having an acute stroke. However, in the emergency room he was found to be significantly hypoglycemic. He was admitted to the hospital. His brain MRI showed no acute infarct or hemorrhage and no evidence of metastatic disease. He was discharged home on 09/25/2020. As of his follow-up visit on 11/20/2020 his performance status was still very marginal, and his chemotherapy remained on hold Restaging CT scans of the chest, abdomen, and pelvis on 12/14/2020 showed significant increase in size and number of metastatic sites throughout both lungs. The largest was in the left lower lobe abutting the pleura, measuring 7.9 x 6.6 x 5.2 cm. There was also progression of metastatic disease within the liver. Enhancing subcutaneous intramuscular nodules within the left abdominal wall were also suspicious for metastatic sites. A new left supraclavicular lymph node measuring 12 mm was highly suspicious for metastasis. I had seen him for a follow-up visit on 12/24/2020. At that time, he desired to continue further treatment. He returned on 12/31/2020 to begin a trial of therapy with a modified FOLFOX regimen in combination with Avastin. Both the oxaliplatin and 5-FU were administered at reduced dosages. He tolerated the 1st cycle pretty well and he continued with cycle 2 on 01/14/2021. His further treatment was delayed due to neuropathy. He was then able to proceed with cycle 3 on 02/11/2021. At that point his CEA level had stabilized. Due to concerns with treatment related toxicity, I opted to continue his further chemotherapy at a 4-week interval. He began cycle 4 on 03/11/2021. His treatment was then delayed because he was not feeling very good generally, though at that point there was no obvious disease progression. He began his 5th cycle on 04/22/2021. He then continued with cycle 6 on 05/20/2021 and was cycle 7 on 06/17/2021. He is seen for a follow-up visit. He says that he feels like crap. Yesterday he had some nausea/vomiting, which he attributes to having eaten chocolate pie. His appetite otherwise comes and goes. He also complains that his energy has been gone the past 2 days. His ECOG score is 2. He has not had fever or night sweats. He has not had sore mouth or throat. He does not complain of cough. He is short of breath at times and he has episodes of heart racing, which he thinks may be anxiety related. He still has some diarrhea, though not as often now. Bladder function has been okay. He has no significant joint or bone pain. He does not complain of headache. He does have some orthostatic lightheadedness. He has numbness/tingling in his fingers. Medications: Aspirin 1 Tablet (of 81 mg) Tablet, chewable Oral daily, Atorvastatin Calcium (40 mg) Tablet Oral daily, Clopidogrel Bisulfate (75 mg) Tablet Oral daily, Magnesium (400 mg) Tablet Oral daily, Ondansetron 1 Tablet (of 4 mg) Tablet Dispersable Oral q 4 hours PRN, Vitamin D3 1 (2000 Units) Tablet Oral daily Allergies: Penicillin V Potassium Vital Signs: Performed on Jul 15, 2021 10:43 Height - 67.00 in Weight - 161.2 lbs (LOW) BSA - 1.84 sq.m BMI - 25.25 Temperature - 98.0 F (LOW) Pulse - 92 /min Respiration - 16 /min BP - 128/82 mm(hg) O2 Sat - 98 % Pain - 0 Fatigue - 6 Physical Examination: Constitutional - He appears somewhat weak generally, Eyes - Sclerae nonicteric. Conjunctivae clear, ENMT - No lesions noted in the oral cavity, Hematologic/Lymphatic - No cervical, clavicular, or axillary adenopathy, Respiratory - Lungs sound clear, Cardiovascular - Heart rhythm appears regular but with frequent premature beats. There is a II/ systolic murmur. There is no gallop or rub noted, Abdomen - Soft. Liver and spleen are not enlarged. There is no abdominal mass or ascites noted and there is no inguinal adenopathy, Extremities - No edema, Neurologic - No focal neurologic deficits noted. Lab/Imaging: Test performed on Jul 15, 2021 08:05 Sodium 137 mmol/L Potassium 4.1 mmol/L Chloride 105 mmol/L CO2 20 mmol/L Anion Gap 16.1 BUN 9 mg/dL Creatinine 0.9 mg/dL Cr Clearance (Est) 80.0600 mL/min Glucose 85 mg/dL Osmolality - Calculated 282 mOsm/kg Calcium 9.2 mg/dL Protein, Total 7.0 g/dL Albumin 3.9 g/dL Globulin 3.1 g/dL Bilirubin, Total 0.5 mg/dL ALT (SGPT) 7 U/L AST (SGOT) 15 U/L Alkaline Phosphatase 79 IU/L WBC 8.1 10 3/uL RBC 4.81 10 6/uL HGB 12.9 g/dL HCT 40.8 % MCV 84.8 fl MCH 26.8 pg MCHC 31.6 g/dL RDW 16.2 % Platelet Count 164 10 3/cmm MPV 10.4 fL Neutrophils 5.09 10 3/uL Lymphocytes 1.8 10 3/uL Monocytes 0.9 10 3/uL Eosinophils 0.2 10 3/uL Basophils 0.1 10 3/uL Neutrophil % 62.9 % Lymphocyte % 21.7 % Monocyte % 10.9 % Eosinophil % 2.6 % Basophils % 1.5 % NRBC % 0 % CEA 54.7 ng/mL Problem List: 1. Low-grade adenocarcinoma of the distal sigmoid colon, stage IV (T3, N1c, M1b). He underwent left hemicolectomy on 07/03/2014. During subsequent follow-up he had enlarging, FDG avid pulmonary nodules, consistent with metastatic disease. He initially opted to have just symptomatic/supportive care. 2. He had non-ST elevation myocardial infarction at initial presentation, and he did require coronary artery bypass surgery prior to the colon resection. 3. Hypertension. 4. Hyperlipidemia. 5. Type II diabetes. 6. Nephrolithiasis. He underwent extracorporeal shockwave lithotripsy for a left distal ureteral stone in June 2018. Problems Addressed with this Encounter and Plan: Patient with low-grade adenocarcinoma of the sigmoid colon, stage IV, with multiple pulmonary metastases and with metastatic involvement in the liver and upper abdominal lymph nodes. He began panitumumab monotherapy in November 2019. During treatment there was a significant decline in his CEA level but with his restaging CT scans showing stable findings. Following his treatment on 05/15/2020 the panitumumab was put on hold due to worsening skin eruption and declining performance status. At that point his CEA level was stable at 13.0 ng/mL. As of his follow-up visit on 07/03/2020 there was a significant increase in the CEA level to 30.4 ng/mL. At that point I opted to stop any further treatment with panitumumab. He ultimately agreed to a trial of second line therapy with FOLFIRI chemotherapy in combination with Avastin. He began cycle 1 on 09/04/2020. His baseline CEA level was 52.8 ng/mL. He has had worsening fatigue/somnolence following that treatment, and as of his follow-up visit on 09/18/2020 he opted to delay any further chemotherapy. At that point he was not having diarrhea or other obvious chemotherapy related toxicities. However, 4 days later he was admitted to the hospital after he became severely hypoglycemic at home. There was some suspicion that also he may have had an acute stroke, but in retrospect that appears to have been unlikely. As of his follow-up visit on 11/20/2020 he still had fairly marginal performance status, and his chemotherapy remained on hold. His restaging CT scans on 12/14/2020 showed progression of bilateral pulmonary metastases and progression of metastatic involvement in the liver. The CT findings reviewed with the patient and his daughter, I also reviewed the CT images with them. We discussed options for further management. He decided to proceed with a trial of further chemotherapy with modified FOLFOX regimen in combination with Avastin. He began the first cycle on 12/31/2020. Both the oxaliplatin and the 5-FU were administered at reduced dosages. He initially tolerated it well, and he continued with cycle 2 on 01/14/2021. His further treatment was delayed due to neuropathy, but he was then able to continue with cycle 3 on 02/11/2021. At that point his CEA level had stabilized, and he then continued his treatment at 4-week intervals. He has now completed 7 cycles of treatment with modified FOLFOX/Avastin. He has been able to tolerate it with acceptable toxicity with the treatments administered at 4-week intervals. He had evidence of response by CEA level and by CT scan. Since then his CEA has remained stable. He continues to have somewhat marginal performance status, but overall he also appears stable clinically. With his recent GI symptoms, he will be given IV hydration today, I will delay his treatment. He will return in 1 week, and assuming he is feeling better he will then continue with cycle 8 of modified FOLFOX/Avastin. He will then be scheduled for a 4-week interval follow-up visit. Signed By: Xiang Castillo M.D. <<Signature on File>>
== END 2021-07-19 07:30 | disposition home or self-care (01) ==
LOC: ONCMED 07:44
PROVIDERS: PCP Family Medicine; Visit Provider Internal Medicine Medical Oncology
DX: C18.7 Malignant neoplasm of sigmoid colon (principal); C78.01 Secondary malignant neoplasm of right lung; C78.02 Secondary malignant neoplasm of left lung; E11.59 Type 2 diabetes mellitus with other circulatory complications; I25.10 Atherosclerotic heart disease of native coronary artery without angina pectoris; I25.2 Old myocardial infarction; Z95.5 Presence of coronary angioplasty implant and graft; I10 Essential (primary) hypertension; E78.5 Hyperlipidemia, unspecified; N20.0 Calculus of kidney; Z79.899 Other long term (current) drug therapy
CPT/HCPCS: 80053; 82378; 85025; 96360; 96365; 96375; 99215; J1100; J2405; J7030

== ENCOUNTER 2021-07-19 07:50 | Emergency (ER) | payer OTHER, MEDICARE, SELFPAY ==
[2021-07-19 07:58] VITALS: BP 113/78; PULSE 105; RESP 16; TEMP 36.9; O2SAT 97; BMI 25.2
--- NOTE | 2021-07-19 08:30 | CTR_ITS ---
PROCEDURE INFORMATION: Exam: CT Abdomen And Pelvis With Contrast Exam date and time: 07/19/2021 8:52 AM Age: 71 years old Clinical indication: Abdominal pain; Localized; Lower; Prior surgery; Surgery date: 6+ months; Surgery type: Appy, gb, colon; Patient HX: HX of colon cancer (2019), HX of lung CA (18 months). Currently on chemotherapy; Additional info: Lower abd pain TECHNIQUE: Imaging protocol: Computed tomography of the abdomen and pelvis with contrast. Total images: 246 Radiation optimization: All CT scans at this facility use at least one of these dose optimization techniques: automated exposure control; mA and/or kV adjustment per patient size (includes targeted exams where dose is matched to clinical indication); or iterative reconstruction. Contrast material: OMNIPAQUE 300; Contrast volume: 95 ml; Contrast route: INTRAVENOUS (IV); COMPARISON: CT abdomen pelvis w con* [id number] 04/05/2021 9:38 PM RADIATION DOSE METRICS: Total DLP (mGy-cm): 1384.01 FINDINGS: Lungs: Multiple bilateral pulmonary masses and nodules the largest posteriorly at the left lung base measuring up to 5.4 cm concerning for metastatic disease these were present on the prior exam. Pleural spaces: Small left pleural fluid collection. Liver: Multiple irregular liver masses concerning for metastatic disease some of the masses show calcifications these findings appear similar to prior exam. Gallbladder and bile ducts: Normal. No calcified stones. No ductal dilation. Pancreas: Normal. No ductal dilation. Spleen: Normal. No splenomegaly. Adrenal glands: Normal. No mass. Kidneys and ureters: 4.8 cm largest cyst noted in a left kidney that has multiple simple renal cysts. This finding is stable when compared to the prior exam. Stomach and bowel: Prior bowel resection and anastomosis is evident. Appendix: No evidence of appendicitis. Intraperitoneal space: Unremarkable. No free air. No significant fluid collection. Arteries: Moderate atherosclerotic disease is evident. Dilated infrarenal abdominal aorta measured at 2.6 cm unchanged. Follow-up imaging in 5 years is recommended. Lymph nodes: Multiple enlarged calcified lymph nodes seen in the retroperitoneum and love hepatis appears similar to the prior exam. Urinary bladder: Unremarkable as visualized. Reproductive: Prostatomegaly noted. The prostate gland contains benign-appearing calcifications that are likely parenchymal. Bones/joints: Bridging osteophytes are seen spanning the SI joints bilaterally. Mild marginal osteophytes are noted. Mild scattered degenerative changes of the spine. Soft tissues: Unremarkable. Other [facility] for incidental nodules are not indicated. Follow up per patient's medical condition. CT/CT abdomen pelvis w con* [id number] IMPRESSION: 1. Multiple bilateral pulmonary masses and nodules the largest posteriorly at the left lung base measuring up to 5.4 cm concerning for metastatic disease these were present on the prior exam. 2. Small left pleural fluid collection. 3. Multiple irregular liver masses concerning for metastatic disease some of the masses show calcifications these findings appear similar to prior exam. 4. Multiple enlarged calcified lymph nodes seen in the retroperitoneum and love hepatis appears similar to the prior exam. 5. Dilated infrarenal abdominal aorta measured at 2.6 cm unchanged. Follow-up imaging in 5 years is recommended. 6. No new pathology detected. COMMENTS: Consistent with the [employer]'s Incidental Findings Committee white paper (J Am Justyna Radiol 2018): Any incidental renal lesion less than 1 cm or classified as too small to characterize, or any incidental cystic renal lesion characterized as simple-appearing, is likely benign. No follow-up imaging is recommended for these lesions per consensus recommendations based on imaging criteria.
--- NOTE | 2021-07-19 08:31 | W.ED.WEAKNES ---
HPI - Weakness General: Chief complaint: Weakness Stated complaint: Left arm pain, weakness, lower abd pain Time Seen by Provider: 07/19/21 08:10 History of Present Illness: Patient comes in with lower abdominal pain for the past 2 weeks that is getting worse. He describes it as sharp, constant, started in the right lower quadrant and is now moved to the left lower quadrant. Associated with some vomiting and diarrhea, however he states those are chronic for him since he is on chemotherapy for metastatic colon cancer. States he was not able to get chemo at his last appointment 5 days ago due to not feeling very good. States he is generally weak. Denies fever, cough, congestion. Associated symptoms: Reports vomiting; Denies chest pain, dysuria, fever(s), headache(s) or nausea Review of Systems Const: Denies: fever(s) or body aches Eyes: Denies: change in vision or blurry vision ENMT: Denies: throat pain or odynophagia Card: Denies: chest pain or palpitations Resp: Denies: dyspnea or productive cough GI: Reports: abdominal pain, vomiting and diarrhea; Denies: nausea : Denies: flank pain or dysuria Musc: Denies: neck pain or back pain Skin/Breast: Denies: rash or pruritus Neuro: Denies: headache(s) or numbness in extremities Psych: Denies: anxiety or change in appetite Endo: Denies: polyuria or excessive sweating PFSH ED PFSH: Medical History CAD (coronary artery disease) Cancer COLON CHF (congestive heart failure), NYHA class I Diabetes Dyslipidemia Fatigue Hypertension Ischemic cardiomyopathy Metastasis PRIYA (obstructive sleep apnea) Palpitation PVCs (premature ventricular contractions) Shortness of breath Type 2 diabetes mellitus Surgical History Hx of CABG 2014 Port-A-Cath in place (01/04/20) left subclavian Family History Other CAD (coronary artery disease) Myocardial infarction Social History Smoking and tobacco status: former smoker Quit status (tobacco): has quit using tobacco Year quit tobacco: 2004 Alcohol intake: never Physical Exam Const: COMMON NORMALS: no acute distress, patient oriented x3, healthy appearing and alert HENMT: COMMON NORMALS: normocephalic and atraumatic HEAD & SCALP: normocephalic and atraumatic Eye: COMMON NORMALS: Equal, round and reactive pupils present and EOMs intact bilaterally PUPIL: Yes Equal, round and reactive pupils present Neck/C-Spine: COMMON NORMALS: full ROM and supple Resp: COMMON NORMALS: normal respiratory effort, No retractions and No use of accessory muscles Cardio: COMMON NORMALS: regular rate and regular rhythm RATE: regular rate RHYTHM: regular rhythm GI: COMMON NORMALS: Normal to inspection, nondistended, normoactive bowel sounds present and Soft to palpation PALPATION: Yes Soft to palpation OTHER: Left lower quadrant abdominal tenderness to palpation Back/Pelvis: COMMON NORMALS: thoracic and lumbar spine normal to inspection and no thoracic nor lumbar tenderness Extremity: COMMON NORMALS: normal to inspection and full ROM Neuro: COMMON NORMALS: patient oriented x3 SENSORIUM/ORIENTATION: Yes alert Psych: COMMON NORMALS: mental status grossly normal and cooperative Skin: COMMON NORMALS: no rashes or lesions noted and no wounds GENERAL SKIN EXAM: no rashes or lesions noted Course Vital Signs: Vital signs: Vital Signs Temperature 98.4 F 07/19/21 07:58 Pulse Rate 80 07/19/21 09:58 Respiratory Rate 17 07/19/21 09:58 Blood Pressure 134/77 07/19/21 09:58 Pulse Oximetry 96 07/19/21 09:58 MDM - Weakness Medical Decision Making Patient comes in with lower abdominal pain for the past 2 weeks that is getting worse. He describes it as sharp, constant, started in the right lower quadrant and is now moved to the left lower quadrant. Associated with some vomiting and diarrhea, however he states those are chronic for him since he is on chemotherapy for metastatic colon cancer. States he was not able to get chemo at his last appointment 5 days ago due to not feeling very good. States he is generally weak. Denies fever, cough, congestion. On physical exam he has mild left lower quadrant abdominal tenderness to palpation, otherwise his abdomen is soft nondistended. Will check labs, treat pain with IV morphine, treat nausea with IV Zofran, give IV fluids, check CT, and reassess. On reassessment I talked to the patient about the test results. Will discharge home with precautions to return for worsening or changing symptoms. Lab Data : 07/19/21 08:29 07/19/21 08:29 Radiology Impressions Abdomen/Pelvis CT 07/19/21 08:30 IMPRESSION: 1. Multiple bilateral pulmonary masses and nodules the largest posteriorly at the left lung base measuring up to 5.4 cm concerning for metastatic disease these were present on the prior exam. 2. Small left pleural fluid collection. 3. Multiple irregular liver masses concerning for metastatic disease some of the masses show calcifications these findings appear similar to prior exam. 4. Multiple enlarged calcified lymph nodes seen in the retroperitoneum and love hepatis appears similar to the prior exam. 5. Dilated infrarenal abdominal aorta measured at 2.6 cm unchanged. Follow-up imaging in 5 years is recommended. 6. No new pathology detected. COMMENTS: Consistent with the [employer]'s Incidental Findings Committee white paper (J Am Justyna Radiol 2018): Any incidental renal lesion less than 1 cm or classified as too small to characterize, or any incidental cystic renal lesion characterized as simple-appearing, is likely benign. No follow-up imaging is recommended for these lesions per consensus recommendations based on imaging criteria. Laboratory Results WBC 10.1 10^3/uL (4.0-10.0) H 07/19/21 08:29 RBC 5.05 10^6/uL (4.1-5.3) 07/19/21 08:29 Hgb 13.6 g/dL (11.7-16.6) 07/19/21 08:29 Hct 42.4 % (42.0-52.0) 07/19/21 08:29 MCV 84.0 fl (80-94) 07/19/21 08:29 MCH 26.9 pg (28.0-34.0) L 07/19/21 08:29 MCHC 32.1 g/dL (30.0-36.0) 07/19/21 08:29 RDW 15.6 % (12.1-15.1) H 07/19/21 08:29 Plt Count 174 10^3/cmm (130-400) 07/19/21 08:29 MPV 9.9 fL (7.4-10.4) 07/19/21 08:29 Neut % (Auto) 71.2 % 07/19/21 08:29 Lymph % (Auto) 14.8 % 07/19/21 08: [place] % (Auto) 11.4 % 07/19/21 08: Eos % (Auto) 1.3 % 07/19/21 08: Baso % (Auto) 0.9 % 07/19/21 08: Neut # (Auto) 7.16 10^3/uL (1.8-7.7) 07/19/21 08: Lymph # (Auto) 1.5 10^3/uL (0.8-4.8) 07/19/21 08: [place] # (Auto) 1.2 10^3/uL (0.2-0.9) H 07/19/21 08: Eos # (Auto) 0.1 10^3/uL (0.0-0.8) 07/19/21 08: Baso # (Auto) 0.1 10^3/uL (0.0-0.1) 07/19/21 08: Nucleated RBC % (auto) 0 % 07/19/21 08: Nucleated RBCs # 0.0 /100WBC 07/19/21 08: Sodium 137 mmol/L (136-145) 07/19/21 08: Potassium 3.5 mmol/L (3.5-5.1) 07/19/21 08: Chloride 101 mmol/L (98-107) 07/19/21 08: Carbon Dioxide 21 mmol/L (22-29) L 07/19/21 08: Anion Gap 18.5 (5-19) 07/19/21 08: BUN 12 mg/dL (8-23) 07/19/21 08: Creatinine 0.9 mg/dL (0.7-1.2) 07/19/21 08: GFR Calculation Not Reportable 07/19/21: Glucose 107 mg/dL (65-115) 07/19/21 08: Calculated Osmolality 284 mOsm/kg (285-295) L 07/19/21 08: Lactate 1.1 mmol/L (0.5-2.2) 07/19/21 08: Calcium 8.5 mg/dL (8.5-10.5) 07/19/21 08: Total Bilirubin 0.7 mg/dL (0.15-1.2) 07/19/21 08:29 AST 16 U/L (0-40) 07/19/21 08:29 ALT 7 U/L (0-41) 07/19/21 08:29 Alkaline Phosphatase 81 IU/L (40-130) 07/19/21 08:29 Total Protein 7.2 g/dL (6.6-8.7) 07/19/21 08:29 Albumin 4.1 g/dL (3.5-5.2) 07/19/21 08:29 Globulin 3.1 g/dL (1.3-4.6) 07/19/21 08:29 Lipase 16 U/L (13-60) 07/19/21 08:29 Urine Color Yellow (Yellow) 07/19/21 09:47 Urine Appearance Clear (CLEAR) 07/19/21 09:47 Urine pH 5 (5-7) 07/19/21 09:47 Ur Specific [place] 1.010 (1.005-1.030) 07/19/21 09:47 Urine Protein Neg (Negative) 07/19/21 09:47 Urine Glucose (UA) Norm (Normal) 07/19/21 09:47 Urine Ketones Negative (Negative) 07/19/21 09:47 Urine Blood Neg (Negative) 07/19/21 09:47 Urine Nitrate Negative (Negative) 07/19/21 09:47 Urine Bilirubin Neg (Negative) 07/19/21 09:47 Urine Urobilinogen Norm mg/dL (Negative) 07/19/21 09:47 Ur Leukocyte Esterase Negative (Negative) 07/19/21 09:47 Discharge Plan Discharge Patient Disposition: Home Clinical Impression: Abdominal pain Condition: Stable Prescriptions: No Action cholecalciferol (vitamin D3) 50 mcg (2,000 unit) capsule 50 mcg PO DAILY 0RF ferrous sulfate 325 mg (65 mg iron) tablet,delayed release (DR/EC) 325 mg PO DAILY 0RF aspirin 81 mg tablet,delayed release (DR/EC) 81 mg PO DAILY Qty: 30 0RF magnesium oxide 400 mg magnesium capsule 400 mg PO DAILY Qty: 30 0RF prochlorperazine maleate 10 mg Tablet 10 mg PO Q4H PRN (Reason: Nausea) 0RF albuterol sulfate 90 mcg/actuation HFA aerosol inhaler 2 puff INHALATION Q6H PRN (Reason: Shortness Of Breath) 0RF Discharge Orders: Discharge ED (Routine); Ordered 07/19/21 Ordered By: Jeb Bellamy Referrals: Janina Clinton DO [Primary Care Provider] - Patient Instructions: Abdominal Pain (ED) Coding Level of Care Code ED [facility] Der[employer]man And Rigger for Chg Fwd Exam Comprehensive
[2021-07-19 08:36] LABS: Basophils # 0.1 10^3/uL (0.0-0.1); Basophils % 0.9 %; Eosinophils # 0.1 10^3/uL (0.0-0.8); Eosinophils % 1.3 %; Hematocrit 42.4 % (42.0-52.0); Hemoglobin 13.6 g/dL (11.7-16.6); Lymphocytes # 1.5 10^3/uL (0.8-4.8); Lymphocytes % 14.8 %; Mean Corpuscular HGB Conc 32.1 g/dL (30.0-36.0); Mean Corpuscular Hemoglobin 26.9 pg (28.0-34.0); Mean Platelet Volume 9.9 fL (7.4-10.4); Monocytes # 1.2 10^3/uL (0.2-0.9); Monocytes % 11.4 %; Neutrophils # 7.16 10^3/uL (1.8-7.7); Neutrophils % 71.2 %; Nucleated Red Blood Cells % 0 %; Platelet Count 174 10^3/cmm (130-400); Red Blood Count 5.05 10^6/uL (4.1-5.3); Red Cell Distribution Width 15.6 % (12.1-15.1); White Blood Count 10.1 10^3/uL (4.0-10.0)
--- NOTE | 2021-07-19 08:40 | ECG_ITS ---
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 Measurements Intervals [place] Rate: 95 P: 11 [place]: 142 QRS: 97 QRSD: 108 T: -2 QT: 338 QTc: 425 Interpretive Statements SINUS RHYTHM WITH FREQUENT VENTRICULAR PREMATURE COMPLEXES IN A BIGEMINAL PATTERN BORDERLINE RIGHT AXIS DEVIATION [QRS AXIS > 90] POSSIBLE INFERIOR MYOCARDIAL INFARCTION , PROBABLY OLD [30 ms Q WAVE IN II/aVF] ABNORMAL RHYTHM ECG Compared to ECG 04/05/2021 22:04:27 No significant changes Electronically Signed On 07-19-2021 18:24:04 CDT by Augustin Lomas M.D. [email or web address]
--- NOTE | 2021-07-19 08:42 | PC.NURSE ---
Morphine 4Mg changed to 2Mg on verbal order from Dr. Bellamy.
[2021-07-19] MEDS: iohexol 300 mg/mL 100 mL Btl IV (08:53)
[2021-07-19] MEDS: sodium chloride 0.9% 1,000 ML 999 ML IV (09:03)
[2021-07-19 09:04] LABS: Alanine Aminotransferase 7 U/L (0-41); Albumin Level 4.1 g/dL (3.5-5.2); Alkaline Phosphatase 81 IU/L (40-130); Anion Gap 18.5 (5-19); Aspartate Amino Transferase 16 U/L (0-40); Blood Urea Nitrogen 12 mg/dL (8-23); Calcium 8.5 mg/dL (8.5-10.5); Carbon Dioxide 21 mmol/L (22-29); Chloride 101 mmol/L (98-107); Globulin 3.1 g/dL (1.3-4.6); Glucose 107 mg/dL (65-115); Lipase 16 U/L (13-60); Osmolality Calculated 284 mOsm/kg (285-295); Potassium 3.5 mmol/L (3.5-5.1); Sodium 137 mmol/L (136-145); Total Bilirubin 0.7 mg/dL (0.15-1.2); Total Protein 7.2 g/dL (6.6-8.7)
[2021-07-19] MEDS: ondansetron 2 mg/ML SDV 2 mL 4 MG IVP (09:04)
[2021-07-19 09:06] VITALS: RESP 19
[2021-07-19] MEDS: morphine 4 mg/mL SDV 1 mL 2 MG IVP (09:06)
[2021-07-19 09:08] LABS: Lactate (Lactic Acid level) 1.1 mmol/L (0.5-2.2)
[2021-07-19 09:09] VITALS: BP 131/62; PULSE 88; RESP 16; O2SAT 97
--- NOTE | 2021-07-19 09:25 | PC.PHAR ---
pt states he hasnt taken his medications in about a month and a half-pt and pts daughter states the metoprolol succinate er 25mg 12.5mg daily was dced months ago rx filled on 05/16/21 90d/s [facility] 25mg daily pt not taken for many months-ext med history shows lipitor 40mg and plavix 75mg filled on 09/25/20 30d/s pt not taking-pt states not taking diphen/atrop anymore states he still has diarrhea but its slowing down rx filled 03/11/21 10d/s-
[2021-07-19 09:58] VITALS: BP 134/77; PULSE 80; RESP 17; O2SAT 96
[2021-07-19 10:07] LABS: Add Urine Microscopic? NO; Charge for UA Resulting for Rev
[2021-07-19 10:29] LABS: Bilirubin Urine Neg (Negative); Blood Urine Neg (Negative); Glucose Urine UA Norm (Normal); Ketones Urine Negative (Negative); Leukocyte Esterase Urine Negative (Negative); Nitrate Urine Negative (Negative); Protein Urine Neg (Negative); Urine Appearance Clear (CLEAR); Urine Color Yellow (Yellow); Urobilinogen Urine Norm (Negative); pH Urine 5 (5-7)
[2021-07-19 11:20] VITALS: BP 122/75; PULSE 85; RESP 17; O2SAT 97
== END 2021-07-19 11:17 | disposition home or self-care (01) ==
PROVIDERS: Emergency Provider Emergency Medicine; PCP Family Medicine
DX: R10.31 Right lower quadrant pain (principal); R10.32 Left lower quadrant pain; R11.10 Vomiting, unspecified; R19.7 Diarrhea, unspecified; C78.5 Secondary malignant neoplasm of large intestine and rectum; Z79.899 Other long term (current) drug therapy
CPT/HCPCS: 36415; 74177; 80053; 81003; 83605; 83690; 85025; 93005; 96361; 96374; 96375; 99283; J2270; J2405; J7030; Q9967

== ENCOUNTER 2021-07-24 06:56 | Outpatient (RCR) | payer MEDICARE, OTHER, SELFPAY ==
[2021-07-22 08:44] LABS: Basophils # 0.1 10^3/uL (0.0-0.1); Basophils % 0.9 %; Eosinophils # 0.1 10^3/uL (0.0-0.8); Eosinophils % 1.1 %; Hematocrit 39.7 % (42.0-52.0); Hemoglobin 12.6 g/dL (11.7-16.6); Lymphocytes # 1.6 10^3/uL (0.8-4.8); Mean Corpuscular HGB Conc 31.7 g/dL (30.0-36.0); Mean Corpuscular Volume 85.2 fl (80-94); Mean Platelet Volume 10.3 fL (7.4-10.4); Monocytes # 1.2 10^3/uL (0.2-0.9); Monocytes % 11.1 %; Neutrophils % 71.5 %; Nucleated Red Blood Cells % 0 %; Platelet Count 181 10^3/cmm (130-400); Red Blood Count 4.66 10^6/uL (4.1-5.3); Red Cell Distribution Width 15.3 % (12.1-15.1); White Blood Count 10.5 10^3/uL (4.0-10.0)
[2021-07-22 09:06] LABS: Alanine Aminotransferase < 5 U/L (0-41); Albumin Level 3.7 g/dL (3.5-5.2); Alkaline Phosphatase 79 IU/L (40-130); Anion Gap 14.9 (5-19); Aspartate Amino Transferase 17 U/L (0-40); Blood Urea Nitrogen 12 mg/dL (8-23); Calcium 8.9 mg/dL (8.5-10.5); Carbon Dioxide 23 mmol/L (22-29); Chloride 104 mmol/L (98-107); Globulin 3.8 g/dL (1.3-4.6); Glucose 90 mg/dL (65-115); Osmolality Calculated 285 mOsm/kg (285-295); Potassium 3.9 mmol/L (3.5-5.1); Sodium 138 mmol/L (136-145); Total Bilirubin 0.7 mg/dL (0.15-1.2); Total Protein 7.5 g/dL (6.6-8.7)
[2021-07-22] MEDS: dextrose 5% 250 ML 100 ML IV (09:55)
[2021-07-22] MEDS: ondansetron 2 mg/ML SDV 2 mL 8 MG IVP (09:56)
[2021-07-22] MEDS: palonosetron 0.25 mg/5 mL SDV IV (10:08)
== END 2021-08-03 23:59 | disposition home or self-care (01) ==
LOC: ONCMED 06:56
PROVIDERS: PCP Family Medicine; Visit Provider Nurse Practitioner Family
DX: Z51.11 Encounter for antineoplastic chemotherapy (principal); C18.7 Malignant neoplasm of sigmoid colon; C78.7 Secondary malignant neoplasm of liver and intrahepatic bile duct; C78.01 Secondary malignant neoplasm of right lung; C78.02 Secondary malignant neoplasm of left lung; C77.2 Secondary and unspecified malignant neoplasm of intra-abdominal lymph nodes; E10.9 Type 1 diabetes mellitus without complications; Z79.899 Other long term (current) drug therapy
CPT/HCPCS: 80053; 85025; 96367; 96368; 96375; 96413; 96415; 96416; 96417; 96523; J0640; J1100; J2405; J2469; J9035; J9190; J9263

== ENCOUNTER 2021-09-09 08:00 | Oncology outpatient (recurring) (ONCR) | payer MEDICARE, OTHER, SELFPAY ==
[2021-08-19 08:44] LABS: Basophils # 0.1 10^3/uL (0.0-0.1); Basophils % 1.3 %; Eosinophils # 0.2 10^3/uL (0.0-0.8); Hematocrit 41.1 % (42.0-52.0); Hemoglobin 12.7 g/dL (11.7-16.6); Lymphocytes # 1.5 10^3/uL (0.8-4.8); Lymphocytes % 19.1 %; Mean Corpuscular HGB Conc 30.9 g/dL (30.0-36.0); Mean Corpuscular Hemoglobin 26.6 pg (28.0-34.0); Mean Platelet Volume 9.7 fL (7.4-10.4); Monocytes # 0.8 10^3/uL (0.2-0.9); Monocytes % 10.6 %; Neutrophils # 5.08 10^3/uL (1.8-7.7); Neutrophils % 65.6 %; Nucleated Red Blood Cells % 0 %; Platelet Count 148 10^3/cmm (130-400); Red Blood Count 4.78 10^6/uL (4.1-5.3); Red Cell Distribution Width 15.2 % (12.1-15.1); White Blood Count 7.7 10^3/uL (4.0-10.0)
[2021-08-19 09:23] LABS: Alanine Aminotransferase 7 U/L (0-41); Albumin Level 3.9 g/dL (3.5-5.2); Alkaline Phosphatase 76 IU/L (40-130); Anion Gap 16.7 (5-19); Aspartate Amino Transferase 18 U/L (0-40); Blood Urea Nitrogen 11 mg/dL (8-23); Carbon Dioxide 23 mmol/L (22-29); Chloride 105 mmol/L (98-107); Globulin 3.5 g/dL (1.3-4.6); Glucose 83 mg/dL (65-115); Osmolality Calculated 291 mOsm/kg (285-295); Potassium 3.7 mmol/L (3.5-5.1); Sodium 141 mmol/L (136-145); Total Bilirubin 0.5 mg/dL (0.15-1.2); Total Protein 7.4 g/dL (6.6-8.7)
[2021-08-19] MEDS: palonosetron 0.25 mg/5 mL SDV IVP (11:10)
[2021-08-19] MEDS: dextrose 5% 250 ML 75 ML IV (11:10)
[2021-08-19] MEDS: leucovorin 740 MG in dextrose 5% 250 ML 81 MG IV (12:16)
[2021-08-19] MEDS: fluorouraciL 3,550 MG, elastomeric pump 1 PUMP in sodium chloride 0.9% (100 ml) 21 ML IV (16:00)
[2021-08-19 16:10] VITALS: BP 120/78; PULSE 77; RESP 16; TEMP 36.6; O2SAT 99
[2021-08-21] MEDS: sodium chloride 0.9% 1,000 ML 999 ML IV (14:04)
[2021-08-21 15:16] VITALS: BP 119/69; PULSE 76; TEMP 37.1; O2SAT 99
--- NOTE | 2021-08-27 10:24 | US_ITS ---
WS: [id number] ULTRASOUND SOFT TISSUES upper LEFT abdominal wall. HISTORY: SUBCUTANEOUS NODULE OF ABDOMINAL WALL COMPARISON: Multiple prior CTs are reviewed. TECHNIQUE: 2-D and color Doppler imaging is submitted. Mixed but predominantly hypoechoic mass is slightly lobulated correspond to the palpable area in the upper LEFT abdominal wall. This mass measures 3.9 cm in length x 3.5 x 1.3 cm. There is some slight i ncreased vascularity. There are a few scattered calcifications. A subcutaneous nodule has been descri bed on prior examinations in this location. This nodule has increased in size since 12/14/2020. With t he patient's history of metastatic disease this is probably metastatic soft tissue nodule. US/US abdomen limited [id number] IMPRESSION: Enlarging subcutaneous soft tissue nodule in the LEFT upper abdominal wall. Thi s nodule was described on 12/14/2020 and has increased in size since that CT exa mination. Suspicious for metastatic nodule.
[2021-09-09 08:32] LABS: Basophils # 0.1 10^3/uL (0.0-0.1); Basophils % 1.3 %; Eosinophils # 0.2 10^3/uL (0.0-0.8); Hematocrit 37.1 % (42.0-52.0); Hemoglobin 11.8 g/dL (11.7-16.6); Lymphocytes # 1.4 10^3/uL (0.8-4.8); Lymphocytes % 23.8 %; Mean Corpuscular HGB Conc 31.8 g/dL (30.0-36.0); Mean Corpuscular Hemoglobin 26.9 pg (28.0-34.0); Mean Corpuscular Volume 84.7 fl (80-94); Mean Platelet Volume 9.6 fL (7.4-10.4); Monocytes # 0.9 10^3/uL (0.2-0.9); Monocytes % 14.5 %; Neutrophils # 3.42 10^3/uL (1.8-7.7); Neutrophils % 57.1 %; Nucleated Red Blood Cells % 0 %; Platelet Count 152 10^3/cmm (130-400); Red Blood Count 4.38 10^6/uL (4.1-5.3); Red Cell Distribution Width 15.3 % (12.1-15.1)
[2021-09-09 09:00] LABS: Carcinoembryonic Antigen 71.7 ng/mL (0.0-4.7)
[2021-09-09 09:11] LABS: Alanine Aminotransferase 7 U/L (0-41); Albumin Level 3.9 g/dL (3.5-5.2); Alkaline Phosphatase 73 IU/L (40-130); Anion Gap 14.4 (5-19); Aspartate Amino Transferase 18 U/L (0-40); Blood Urea Nitrogen 12 mg/dL (8-23); Calcium 8.4 mg/dL (8.5-10.5); Carbon Dioxide 24 mmol/L (22-29); Chloride 107 mmol/L (98-107); Globulin 3.3 g/dL (1.3-4.6); Glucose 84 mg/dL (65-115); Osmolality Calculated 293 mOsm/kg (285-295); Potassium 3.4 mmol/L (3.5-5.1); Sodium 142 mmol/L (136-145); Total Bilirubin 0.6 mg/dL (0.15-1.2); Total Protein 7.2 g/dL (6.6-8.7)
[2021-09-09] MEDS: dextrose 5% 250 ML 75 ML IV (10:05)
[2021-09-09] MEDS: palonosetron 0.25 mg/5 mL SDV IVP (10:24)
[2021-09-09] MEDS: leucovorin 740 MG in dextrose 5% 250 ML 81 MG IV (11:21)
[2021-09-09] MEDS: fluorouraciL 3,550 MG, elastomeric pump 1 PUMP in sodium chloride 0.9% (100 ml) 21 ML IV (14:56)
[2021-09-09 15:07] VITALS: BP 116/63; PULSE 79; TEMP 36.8; O2SAT 97
== END 2021-09-09 23:59 | disposition home or self-care (01) ==
PROVIDERS: Internal Medicine Medical Oncology; PCP Family Medicine; Visit Provider Nurse Practitioner Family
DX: Z51.11 Encounter for antineoplastic chemotherapy (principal); C18.7 Malignant neoplasm of sigmoid colon; C78.01 Secondary malignant neoplasm of right lung; C78.02 Secondary malignant neoplasm of left lung; C78.7 Secondary malignant neoplasm of liver and intrahepatic bile duct; C77.8 Secondary and unspecified malignant neoplasm of lymph nodes of multiple regions; L27.1 Localized skin eruption due to drugs and medicaments taken internally; K52.1 Toxic gastroenteritis and colitis; T45.1X5A Adverse effect of antineoplastic and immunosuppressive drugs, initial encounter; R53.82 Chronic fatigue, unspecified; R40.0 Somnolence; R22.2 Localized swelling, mass and lump, trunk; Z86.73 Personal history of transient ischemic attack (TIA), and cerebral infarction without residual deficits; Z79.899 Other long term (current) drug therapy
CPT/HCPCS: 36591; 76705; 80053; 82378; 85025; 96367; 96368; 96375; 96413; 96415; 96416; 96417; 96523; 99215; 99999; J0640; J1100; J2469; J7030; J9190; J9263; Q5107

== ENCOUNTER 2021-09-25 13:00 | Oncology outpatient (recurring) (ONCR) | payer MEDICARE, OTHER, SELFPAY ==
[2021-09-11] MEDS: sodium chloride 0.9% 500 ML 999 ML IV (15:00)
[2021-09-11 15:07] VITALS: BP 108/70; PULSE 78; RESP 18; TEMP 37.2; O2SAT 98
[2021-09-23 08:25] LABS: Basophils # 0.1 10^3/uL (0.0-0.1); Basophils % 0.8 %; Eosinophils # 0.2 10^3/uL (0.0-0.8); Eosinophils % 2.8 %; Hematocrit 35.7 % (42.0-52.0); Hemoglobin 11.6 g/dL (11.7-16.6); Lymphocytes # 1.6 10^3/uL (0.8-4.8); Lymphocytes % 22.4 %; Mean Corpuscular HGB Conc 32.5 g/dL (30.0-36.0); Mean Corpuscular Hemoglobin 27.1 pg (28.0-34.0); Mean Corpuscular Volume 83.4 fl (80-94); Mean Platelet Volume 9.6 fL (7.4-10.4); Monocytes # 0.7 10^3/uL (0.2-0.9); Monocytes % 10.2 %; Neutrophils # 4.56 10^3/uL (1.8-7.7); Neutrophils % 63.2 %; Nucleated Red Blood Cells % 0 %; Platelet Count 167 10^3/cmm (130-400); Red Blood Count 4.28 10^6/uL (4.1-5.3); Red Cell Distribution Width 15.5 % (12.1-15.1); White Blood Count 7.2 10^3/uL (4.0-10.0)
[2021-09-23 08:43] LABS: Alanine Aminotransferase 8 U/L (0-41); Albumin Level 3.8 g/dL (3.5-5.2); Alkaline Phosphatase 71 IU/L (40-130); Anion Gap 14.8 (5-19); Aspartate Amino Transferase 15 U/L (0-40); Blood Urea Nitrogen 14 mg/dL (8-23); Calcium 8.5 mg/dL (8.5-10.5); Carbon Dioxide 21 mmol/L (22-29); Chloride 106 mmol/L (98-107); Globulin 3.4 g/dL (1.3-4.6); Glucose 77 mg/dL (65-115); Osmolality Calculated 285 mOsm/kg (285-295); Potassium 3.8 mmol/L (3.5-5.1); Sodium 138 mmol/L (136-145); Total Bilirubin 0.4 mg/dL (0.15-1.2); Total Protein 7.2 g/dL (6.6-8.7)
[2021-09-23] MEDS: dextrose 5% 250 ML 75 ML IV (09:41)
[2021-09-23] MEDS: palonosetron 0.25 mg/5 mL SDV IVP (09:43)
[2021-09-23] MEDS: SODIUM CHLORIDE 0.9% IV (10:19)
[2021-09-23] MEDS: BEVACIZUMAB AWWB IV (10:19)
[2021-09-23] MEDS: leucovorin 720 MG in dextrose 5% 250 ML 80.5 MG IV (10:52)
[2021-09-23 11:35] LABS: Estmated Average Glucose 108; Hemoglobin A1C 5.4 % (4.0-6.0)
[2021-09-23] MEDS: fluorouraciL 4,300 MG, elastomeric pump 1 PUMP in sodium chloride 0.9% (100 ml) 6 ML IV (14:24)
[2021-09-23 14:34] VITALS: BP 117/76; PULSE 73; TEMP 36.9; O2SAT 100
[2021-09-25] MEDS: sodium chloride 0.9% 500 ML 999 ML IV (12:53)
== END 2021-10-03 23:59 | disposition home or self-care (01) ==
PROVIDERS: Internal Medicine Medical Oncology; PCP Family Medicine; Visit Provider Nurse Practitioner Family
DX: Z45.2 Encounter for adjustment and management of vascular access device (principal)
CPT/HCPCS: 80053; 83036; 85025; 96360; 96367; 96368; 96375; 96413; 96415; 96416; 96417; 96523; 99214; J0640; J1100; J2469; J7040; J9190; J9263; Q5107

== ENCOUNTER 2021-10-24 09:00 | Oncology outpatient (recurring) (ONCR) | payer OTHER, MEDICARE, SELFPAY ==
[2021-10-08 08:30] LABS: Basophils # 0.1 10^3/uL (0.0-0.1); Basophils % 1.5 %; Eosinophils # 0.2 10^3/uL (0.0-0.8); Eosinophils % 3.6 %; Hematocrit 34.7 % (42.0-52.0); Hemoglobin 11.4 g/dL (11.7-16.6); Lymphocytes # 1.6 10^3/uL (0.8-4.8); Lymphocytes % 23.8 %; Mean Corpuscular HGB Conc 32.9 g/dL (30.0-36.0); Mean Corpuscular Hemoglobin 27.3 pg (28.0-34.0); Mean Platelet Volume 10.1 fL (7.4-10.4); Monocytes # 0.8 10^3/uL (0.2-0.9); Monocytes % 12.3 %; Neutrophils # 3.85 10^3/uL (1.8-7.7); Neutrophils % 58.3 %; Nucleated Red Blood Cells % 0 %; Platelet Count 141 10^3/cmm (130-400); Red Blood Count 4.18 10^6/uL (4.1-5.3); Red Cell Distribution Width 16.9 % (12.1-15.1); White Blood Count 6.6 10^3/uL (4.0-10.0)
[2021-10-08 08:53] LABS: Carcinoembryonic Antigen 90.9 ng/mL (0.0-4.7)
[2021-10-08 09:08] LABS: Alanine Aminotransferase 10 U/L (0-41); Albumin Level 3.8 g/dL (3.5-5.2); Alkaline Phosphatase 64 IU/L (40-130); Anion Gap 17.3 (5-19); Aspartate Amino Transferase 16 U/L (0-40); Blood Urea Nitrogen 15 mg/dL (8-23); Calcium 8.3 mg/dL (8.5-10.5); Carbon Dioxide 17 mmol/L (22-29); Chloride 109 mmol/L (98-107); Globulin 3.5 g/dL (1.3-4.6); Glucose 84 mg/dL (65-115); Osmolality Calculated 290 mOsm/kg (285-295); Potassium 3.3 mmol/L (3.5-5.1); Sodium 140 mmol/L (136-145); Total Bilirubin 0.5 mg/dL (0.15-1.2); Total Protein 7.3 g/dL (6.6-8.7)
[2021-10-24] MEDS: sodium chloride 0.9% 500 ML 999 ML IV (09:30)
[2021-10-24 09:36] LABS: Basophils # 0.1 10^3/uL (0.0-0.1); Basophils % 1.5 %; Eosinophils # 0.2 10^3/uL (0.0-0.8); Eosinophils % 2.7 %; Hematocrit 36.9 % (42.0-52.0); Hemoglobin 11.7 g/dL (11.7-16.6); Lymphocytes # 1.6 10^3/uL (0.8-4.8); Lymphocytes % 22.4 %; Mean Corpuscular HGB Conc 31.7 g/dL (30.0-36.0); Mean Corpuscular Hemoglobin 27.6 pg (28.0-34.0); Mean Platelet Volume 10.2 fL (7.4-10.4); Monocytes # 0.7 10^3/uL (0.2-0.9); Monocytes % 9.6 %; Neutrophils # 4.63 10^3/uL (1.8-7.7); Neutrophils % 63.4 %; Nucleated Red Blood Cells % 0 %; Platelet Count 140 10^3/cmm (130-400); Red Blood Count 4.24 10^6/uL (4.1-5.3); Red Cell Distribution Width 17.6 % (12.1-15.1); White Blood Count 7.3 10^3/uL (4.0-10.0)
[2021-10-24 10:04] LABS: Carcinoembryonic Antigen 93.2 ng/mL (0.0-4.7)
[2021-10-24 10:15] LABS: Alanine Aminotransferase 7 U/L (0-41); Albumin Level 3.6 g/dL (3.5-5.2); Alkaline Phosphatase 66 IU/L (40-130); Anion Gap 15.7 (5-19); Aspartate Amino Transferase 18 U/L (0-40); Blood Urea Nitrogen 11 mg/dL (8-23); Calcium 8.5 mg/dL (8.5-10.5); Carbon Dioxide 19 mmol/L (22-29); Chloride 109 mmol/L (98-107); Globulin 2.9 g/dL (1.3-4.6); Glucose 75 mg/dL (65-115); Osmolality Calculated 288 mOsm/kg (285-295); Potassium 3.7 mmol/L (3.5-5.1); Sodium 140 mmol/L (136-145); Total Bilirubin 0.5 mg/dL (0.15-1.2); Total Protein 6.5 g/dL (6.6-8.7)
== END 2021-11-03 23:59 | disposition home or self-care (01) ==
PROVIDERS: Internal Medicine Medical Oncology; PCP Family Medicine; Visit Provider Nurse Practitioner Family
DX: C18.7 Malignant neoplasm of sigmoid colon (principal); C78.01 Secondary malignant neoplasm of right lung; C78.02 Secondary malignant neoplasm of left lung; C78.7 Secondary malignant neoplasm of liver and intrahepatic bile duct; C77.2 Secondary and unspecified malignant neoplasm of intra-abdominal lymph nodes; R53.82 Chronic fatigue, unspecified; G62.0 Drug-induced polyneuropathy; T45.1X5A Adverse effect of antineoplastic and immunosuppressive drugs, initial encounter; Z79.899 Other long term (current) drug therapy; Z53.9 Procedure and treatment not carried out, unspecified reason
CPT/HCPCS: 36591; 80053; 82378; 85025; 96365; 99215; J7040

== ENCOUNTER → 2021-11-19 11:10 | Outpatient (BNVA) | payer MEDICARE, OTHER, SELFPAY | PROVIDERS: PCP Family Medicine; Visit Provider Internal Medicine Cardiovascular Disease | DX: I49.3 Ventricular premature depolarization (principal); I25.10 Atherosclerotic heart disease of native coronary artery without angina pectoris; Z95.1 Presence of aortocoronary bypass graft; I11.0 Hypertensive heart disease with heart failure; I50.32 Chronic diastolic (congestive) heart failure; Z87.891 Personal history of nicotine dependence; I25.5 Ischemic cardiomyopathy; R94.31 Abnormal electrocardiogram [ECG] [EKG] | CPT/HCPCS: 93005; 99214 ==

== ENCOUNTER 2021-12-02 11:25 | Oncology outpatient (recurring) (ONCR) | payer MEDICARE, OTHER, SELFPAY ==
--- NOTE | 2021-11-04 14:00 | CT_ITS ---
WS: [id number] CT CHEST, ABDOMEN, AND PELVIS TECHNIQUE: Contrast-enhanced CT of the chest, abdomen, and pelvis with coronal and sagittal reformatt ed images. CLINICAL INFORMATION: restaging COMPARISON: CT abdomen and pelvis July 19, [address] chest abdomen pelvis December 14, 2020. CT a bdomen pelvis April 05, 2021 DLP: 1472.[address] scans at [facility] use at least one of these dose optimization techniques: automated e xposure control; mA and/or kV adjustment per patient size (includes targeted exams where dose is matc hed to clinical indication); or iterative reconstruction. CT CHEST: Multiple bilateral metastatic pulmonary masses. Largest in the LEFT upper lobe about the LEFT hilum w ith calcification measuring 3.8 x 4.2 CM. This is relatively stable compared to the prior examination . Previously described large LEFT lower lobe pulmonary mass has decreased in size today. Previously t his measured 6.6 x 5.2 cm and today measures 2.7 x 3.8 cm. A few of the smaller subcentimeter lesions have increased in size slightly. Otherwise the number and distribution of lesions is relatively stab le. Small LEFT pleural effusion with pleural thickening. Normal caliber thoracic aorta. Aortic calcification. Proximal main pulmonary arteries are patent. Cor onary calcification. No new mediastinal or hilar lymphadenopathy. No axillary lymphadenopathy. Prior sternotomy. CT ABDOMEN AND PELVIS: Numerous metastatic lesions throughout both hepatic lobes and with calcification. The number and dist ribution of lesions appears stable compared to previous. No significant liver progression. Portal vei n and splenic vein are patent. Normal spleen. Small esophageal hiatal hernia with thickening at the G E junction. Prior cholecystectomy. Calcified bulky lymph nodes in the upper abdomen and love hepatis unchanged from previous. Bulky calcified periaortic and retroperitoneal lymph nodes appear unchanged . Enlarged prostate measuring 4.5 CM. Prior postoperative changes sigmoid anastomosis. Gaseous dilatati on of the transverse colon with air-fluid levels is similar to the prior examination likely due to il eus. Subcutaneous nodule in the LEFT upper abdominal wall measuring 2.8 cm consistent with metastatic disease is unchanged. Moderate aortic calcification. Adrenal glands are normal. Normal renal parenchymal enhancement. LEFT renal cysts. Normal lumbar spine. CT/CT chest abd pel w con* IMPRESSION: 1. Previous described bulky LEFT lower lobe lung mass is decreased in size tod ay measuring 2.7 x 3.8 cm compared to 6.6 x 5.2 cm previous consistent with int erval response to therapy. 2. Largest residual mass about the LEFT hilum LEFT upper lobe measuring 4.2 x 3.8 cm is stable. 3. Numerous additional pulmonary nodules are similar in appearance and not sig nificantly changed. 4. A few of the subcentimeter nodules have increased in size slightly compared to December 14, 2020 5. No evidence of disease progression in the abdomen or pelvis.
[2021-11-04] MEDS: iohexol 350 mg/mL 100 mL Btl IV (14:52)
[2021-11-07] MEDS: sodium chloride 0.9% 500 ML 999 ML IV (09:01)
[2021-11-07 09:10] LABS: Basophils # 0.1 10^3/uL (0.0-0.1); Eosinophils # 0.1 10^3/uL (0.0-0.8); Hematocrit 36.5 % (42.0-52.0); Lymphocytes # 1.2 10^3/uL (0.8-4.8); Monocytes # 0.2 10^3/uL (0.2-0.9); Nucleated Red Blood Cells % 0 %
[2021-11-07 09:21] LABS: Eosinophils % 1.3 %; Hemoglobin 11.4 g/dL (11.7-16.6); Lymphocytes % 19.6 %; Mean Corpuscular HGB Conc 31.2 g/dL (30.0-36.0); Mean Corpuscular Hemoglobin 27.4 pg (28.0-34.0); Mean Corpuscular Volume 87.7 fl (80-94); Mean Platelet Volume 9.8 fL (7.4-10.4); Monocytes % 3.5 %; Neutrophils # 4.46 10^3/uL (1.8-7.7); Neutrophils % 74.1 %; Platelet Count 122 10^3/cmm (130-400); Red Blood Count 4.16 10^6/uL (4.1-5.3); Red Cell Distribution Width 15.9 % (12.1-15.1)
[2021-11-07 09:49] LABS: Alanine Aminotransferase 6 U/L (0-41); Albumin Level 3.7 g/dL (3.5-5.2); Alkaline Phosphatase 67 IU/L (40-130); Anion Gap 15.2 (5-19); Aspartate Amino Transferase 15 U/L (0-40); Blood Urea Nitrogen 12 mg/dL (8-23); Calcium 8.5 mg/dL (8.5-10.5); Carbon Dioxide 22 mmol/L (22-29); Chloride 107 mmol/L (98-107); Glucose 128 mg/dL (65-115); Osmolality Calculated 293 mOsm/kg (285-295); Potassium 3.2 mmol/L (3.5-5.1); Sodium 141 mmol/L (136-145); Total Bilirubin 0.7 mg/dL (0.15-1.2); Total Protein 6.7 g/dL (6.6-8.7)
[2021-11-25 09:03] LABS: Basophils % 0.7 %; Eosinophils % 1.4 %; Hemoglobin 10.7 g/dL (11.7-16.6); Lymphocytes # 1.2 10^3/uL (0.8-4.8); Lymphocytes % 44.4 %; Mean Corpuscular HGB Conc 32.4 g/dL (30.0-36.0); Mean Corpuscular Hemoglobin 27.9 pg (28.0-34.0); Mean Corpuscular Volume 85.9 fl (80-94); Mean Platelet Volume 9.6 fL (7.4-10.4); Monocytes # 0.6 10^3/uL (0.2-0.9); Monocytes % 21.9 %; Neutrophils % 31.2 %; Nucleated Red Blood Cells % 0 %; Platelet Count 125 10^3/cmm (130-400); Red Blood Count 3.84 10^6/uL (4.1-5.3); Red Cell Distribution Width 17.4 % (12.1-15.1); White Blood Count 2.8 10^3/uL (4.0-10.0)
[2021-11-25] MEDS: sodium chloride 0.9% 500 ML 999 ML IV (09:06)
[2021-11-25 09:29] LABS: Neutrophils # 0.87 10^3/uL (1.8-7.7)
[2021-11-25 09:31] LABS: Alanine Aminotransferase 6 U/L (0-41); Alkaline Phosphatase 68 U/L (40-130); Aspartate Amino Transferase 15 U/L (0-40); Blood Urea Nitrogen 16 mg/dL (8-23); Calcium 8.4 mg/dL (8.5-10.5); Carbon Dioxide 19 mmol/L (22-29); Chloride 108 mmol/L (98-107); Globulin 3.1 g/dL (1.3-4.6); Glucose 84 mg/dL (65-115); Osmolality Calculated 290 mOsm/kg (285-295); Sodium 140 mmol/L (136-145); Total Bilirubin 0.5 mg/dL (0.15-1.2); Total Protein 7.1 g/dL (6.6-8.7)
[2021-11-25 10:12] LABS: Carcinoembryonic Antigen 79.9 ng/mL (0.0-4.7)
[2021-12-02 08:59] VITALS: BMI 23.3
[2021-12-02 09:15] VITALS: BP 100/66; PULSE 64; RESP 18; TEMP 36.8; O2SAT 99
[2021-12-02 09:22] LABS: Basophils # 0.1 10^3/uL (0.0-0.1); Eosinophils % 0.4 %; Hematocrit 31.4 % (42.0-52.0); Hemoglobin 10.1 g/dL (11.7-16.6); Lymphocytes # 1.1 10^3/uL (0.8-4.8); Lymphocytes % 23.2 %; Mean Corpuscular HGB Conc 32.2 g/dL (30.0-36.0); Mean Corpuscular Hemoglobin 27.8 pg (28.0-34.0); Mean Corpuscular Volume 86.5 fl (80-94); Mean Platelet Volume 9.6 fL (7.4-10.4); Monocytes # 0.6 10^3/uL (0.2-0.9); Neutrophils # 2.94 10^3/uL (1.8-7.7); Neutrophils % 61.6 %; Nucleated Red Blood Cells % 0 %; Platelet Count 115 10^3/cmm (130-400); Red Blood Count 3.63 10^6/uL (4.1-5.3); Red Cell Distribution Width 17.4 % (12.1-15.1); White Blood Count 4.8 10^3/uL (4.0-10.0)
[2021-12-02] MEDS: sodium chloride 0.9% 500 ML 999 ML IV (09:24)
[2021-12-02 09:53] LABS: Alanine Aminotransferase 6 U/L (0-41); Albumin Level 3.6 g/dL (3.5-5.2); Alkaline Phosphatase 67 U/L (40-130); Aspartate Amino Transferase 18 U/L (0-40); Blood Urea Nitrogen 12 mg/dL (8-23); Calcium 8.1 mg/dL (8.5-10.5); Carbon Dioxide 19 mmol/L (22-29); Chloride 110 mmol/L (98-107); Globulin 2.7 g/dL (1.3-4.6); Glucose 72 mg/dL (65-115); Osmolality Calculated 294 mOsm/kg (285-295); Sodium 143 mmol/L (136-145); Total Bilirubin 0.4 mg/dL (0.15-1.2); Total Protein 6.3 g/dL (6.6-8.7)
[2021-12-02 10:03] VITALS: BP 105/64; PULSE 69; RESP 18; TEMP 36.8; O2SAT 99
[2021-12-02 10:04] LABS: Anion Gap 17.2 (5-19); Potassium 3.2 mmol/L (3.5-5.1)
== END 2021-12-04 23:59 | disposition home or self-care (01) ==
PROVIDERS: Nurse Practitioner; Nurse Practitioner Family; PCP Family Medicine; Visit Provider Internal Medicine Medical Oncology
DX: C18.7 Malignant neoplasm of sigmoid colon (principal); C79.9 Secondary malignant neoplasm of unspecified site
CPT/HCPCS: 71260; 74177; 80053; 82378; 85025; 96365; 99214; 99215; J7040

== ENCOUNTER 2021-12-25 09:00 | Oncology outpatient (recurring) (ONCR) | payer MEDICARE, OTHER, SELFPAY ==
[2021-12-11 10:00] VITALS: BMI 23.6
[2021-12-11] MEDS: sodium chloride 0.9% 500 ML 999 ML IV (10:05)
[2021-12-11 10:12] LABS: Basophils # 0.1 10^3/uL (0.0-0.1); Basophils % 1.3 %; Eosinophils # 0.2 10^3/uL (0.0-0.8); Eosinophils % 2.3 %; Hematocrit 32.4 % (42.0-52.0); Hemoglobin 10.3 g/dL (11.7-16.6); Lymphocytes # 1.4 10^3/uL (0.8-4.8); Lymphocytes % 18.1 %; Mean Corpuscular HGB Conc 31.8 g/dL (30.0-36.0); Mean Corpuscular Hemoglobin 28.1 pg (28.0-34.0); Mean Corpuscular Volume 88.5 fl (80-94); Mean Platelet Volume 9.7 fL (7.4-10.4); Monocytes # 0.8 10^3/uL (0.2-0.9); Monocytes % 9.5 %; Neutrophils % 68.2 %; Nucleated Red Blood Cells % 0 %; Platelet Count 140 10^3/cmm (130-400); Red Blood Count 3.66 10^6/uL (4.1-5.3); Red Cell Distribution Width 17.2 % (12.1-15.1); White Blood Count 7.9 10^3/uL (4.0-10.0)
[2021-12-11 10:37] LABS: Carcinoembryonic Antigen 83.8 ng/mL (0.0-4.7)
[2021-12-11 10:48] LABS: Alanine Aminotransferase 6 U/L (0-41); Albumin Level 3.4 g/dL (3.5-5.2); Alkaline Phosphatase 67 U/L (40-130); Anion Gap 12.4 (5-19); Aspartate Amino Transferase 17 U/L (0-40); Blood Urea Nitrogen 11 mg/dL (8-23); Calcium 8.2 mg/dL (8.5-10.5); Carbon Dioxide 20 mmol/L (22-29); Chloride 109 mmol/L (98-107); Globulin 3.1 g/dL (1.3-4.6); Glucose 75 mg/dL (65-115); Osmolality Calculated 284 mOsm/kg (285-295); Potassium 3.4 mmol/L (3.5-5.1); Sodium 138 mmol/L (136-145); Total Bilirubin 0.4 mg/dL (0.15-1.2); Total Protein 6.5 g/dL (6.6-8.7)
[2021-12-11 12:25] VITALS: BP 104/73; PULSE 67; RESP 18; TEMP 36.9; O2SAT 99
[2021-12-25 08:59] VITALS: BP 94/59; PULSE 70; RESP 18; TEMP 36.9; O2SAT 97
[2021-12-25] MEDS: sodium chloride 0.9% 500 ML 999 ML IV (09:04)
[2021-12-25 09:24] LABS: Basophils # 0.1 10^3/uL (0.0-0.1); Basophils % 1.5 %; Eosinophils # 0.1 10^3/uL (0.0-0.8); Hematocrit 32.5 % (42.0-52.0); Hemoglobin 10.1 g/dL (11.7-16.6); Lymphocytes # 1.3 10^3/uL (0.8-4.8); Lymphocytes % 21.3 %; Mean Corpuscular HGB Conc 31.1 g/dL (30.0-36.0); Mean Corpuscular Hemoglobin 27.8 pg (28.0-34.0); Mean Corpuscular Volume 89.5 fl (80-94); Mean Platelet Volume 9.7 fL (7.4-10.4); Monocytes # 0.2 10^3/uL (0.2-0.9); Monocytes % 3.5 %; Neutrophils # 4.26 10^3/uL (1.8-7.7); Nucleated Red Blood Cells % 0 %; Platelet Count 139 10^3/cmm (130-400); Red Blood Count 3.63 10^6/uL (4.1-5.3); Red Cell Distribution Width 15.5 % (12.1-15.1)
[2021-12-25 10:23] LABS: Alanine Aminotransferase 6 U/L (0-41); Albumin Level 3.5 g/dL (3.5-5.2); Alkaline Phosphatase 67 U/L (40-130); Aspartate Amino Transferase 17 U/L (0-40); Blood Urea Nitrogen 11 mg/dL (8-23); Calcium 8.4 mg/dL (8.5-10.5); Carbon Dioxide 21 mmol/L (22-29); Chloride 108 mmol/L (98-107); Globulin 3.2 g/dL (1.3-4.6); Glucose 81 mg/dL (65-115); Osmolality Calculated 288 mOsm/kg (285-295); Sodium 140 mmol/L (136-145); Total Bilirubin 0.6 mg/dL (0.15-1.2); Total Protein 6.7 g/dL (6.6-8.7)
[2021-12-25 11:25] VITALS: BP 108/77; PULSE 65; RESP 18; TEMP 36.9; O2SAT 98
== END 2022-01-03 23:59 | disposition home or self-care (01) ==
PROVIDERS: Nurse Practitioner; PCP Family Medicine; Visit Provider Internal Medicine Medical Oncology
DX: C18.7 Malignant neoplasm of sigmoid colon (principal); C78.01 Secondary malignant neoplasm of right lung; C78.02 Secondary malignant neoplasm of left lung; C78.7 Secondary malignant neoplasm of liver and intrahepatic bile duct; C77.2 Secondary and unspecified malignant neoplasm of intra-abdominal lymph nodes; R53.0 Neoplastic (malignant) related fatigue; D61.818 Other pancytopenia; Z79.899 Other long term (current) drug therapy; Z87.891 Personal history of nicotine dependence; Z95.828 Presence of other vascular implants and grafts
CPT/HCPCS: 36415; 80053; 82378; 85025; 96365; 99214; J7040

== ENCOUNTER → 2022-01-22 09:12 | Outpatient (BNVA) | payer MEDICARE, OTHER, SELFPAY | PROVIDERS: PCP Family Medicine; Visit Provider Nurse Practitioner | DX: C18.7 Malignant neoplasm of sigmoid colon (principal) | CPT/HCPCS: 99214; 99215 ==

== ENCOUNTER 2022-01-29 10:30 | Oncology outpatient (recurring) (ONCR) | payer MEDICARE, OTHER, SELFPAY ==
[2022-01-15 09:38] VITALS: BP 103/64; PULSE 74; RESP 18; TEMP 36.7; O2SAT 99
[2022-01-15] MEDS: sodium chloride 0.9% 1,000 ML 999 ML IV (10:17)
[2022-01-15 10:30] LABS: Basophils % 0.4 %; Eosinophils % 0.7 %; Hematocrit 28.5 % (42.0-52.0); Hemoglobin 9.2 g/dL (11.7-16.6); Lymphocytes # 1.2 10^3/uL (0.8-4.8); Lymphocytes % 44.6 %; Mean Corpuscular HGB Conc 32.3 g/dL (30.0-36.0); Mean Corpuscular Hemoglobin 29.3 pg (28.0-34.0); Mean Corpuscular Volume 90.8 fl (80-94); Mean Platelet Volume 10.6 fL (7.4-10.4); Monocytes # 0.6 10^3/uL (0.2-0.9); Monocytes % 20.9 %; Nucleated Red Blood Cells % 0 %; Platelet Count 131 10^3/cmm (130-400); Red Blood Count 3.14 10^6/uL (4.1-5.3); Red Cell Distribution Width 17.9 % (12.1-15.1); White Blood Count 2.8 10^3/uL (4.0-10.0)
[2022-01-15 10:31] LABS: Neutrophils # 0.92 10^3/uL (1.8-7.7)
[2022-01-15 10:52] LABS: Alanine Aminotransferase < 5 U/L (0-41); Albumin Level 3.6 g/dL (3.5-5.2); Alkaline Phosphatase 74 U/L (40-130); Anion Gap 14.3 (5-19); Aspartate Amino Transferase 16 U/L (0-40); Blood Urea Nitrogen 13 mg/dL (8-23); Calcium 8.3 mg/dL (8.5-10.5); Carbon Dioxide 23 mmol/L (22-29); Chloride 107 mmol/L (98-107); Globulin 3.1 g/dL (1.3-4.6); Glucose 79 mg/dL (65-115); Osmolality Calculated 289 mOsm/kg (285-295); Potassium 4.3 mmol/L (3.5-5.1); Sodium 140 mmol/L (136-145); Total Bilirubin 0.4 mg/dL (0.15-1.2); Total Protein 6.7 g/dL (6.6-8.7)
[2022-01-15 12:31] LABS: Carcinoembryonic Antigen 103.1 ng/mL (0.0-4.7)
[2022-01-16 11:33] LABS: Estmated Average Glucose 100; Hemoglobin A1C 5.1 % (4.0-6.0)
[2022-01-22 09:39] VITALS: BP 120/76; PULSE 68; RESP 18; TEMP 36.3; O2SAT 96
[2022-01-22] MEDS: sodium chloride 0.9% 500 ML 999 ML IV (10:06)
[2022-01-22 10:14] LABS: Basophils # 0.1 10^3/uL (0.0-0.1); Basophils % 1.1 %; Eosinophils % 0.2 %; Hematocrit 32.4 % (42.0-52.0); Hemoglobin 10.2 g/dL (11.7-16.6); Lymphocytes % 17.6 %; Mean Corpuscular HGB Conc 31.5 g/dL (30.0-36.0); Mean Corpuscular Hemoglobin 28.7 pg (28.0-34.0); Mean Corpuscular Volume 91.3 fl (80-94); Mean Platelet Volume 10.2 fL (7.4-10.4); Monocytes # 0.7 10^3/uL (0.2-0.9); Monocytes % 12.7 %; Neutrophils # 3.86 10^3/uL (1.8-7.7); Neutrophils % 67.9 %; Nucleated Red Blood Cells % 0 %; Platelet Count 143 10^3/cmm (130-400); Red Blood Count 3.55 10^6/uL (4.1-5.3); Red Cell Distribution Width 17.3 % (12.1-15.1); White Blood Count 5.7 10^3/uL (4.0-10.0)
[2022-01-22 10:27] LABS: Alanine Aminotransferase 7 U/L (0-41); Albumin Level 3.5 g/dL (3.5-5.2); Alkaline Phosphatase 80 U/L (40-130); Aspartate Amino Transferase 17 U/L (0-40); Blood Urea Nitrogen 14 mg/dL (8-23); Calcium 8.5 mg/dL (8.5-10.5); Carbon Dioxide 19 mmol/L (22-29); Chloride 107 mmol/L (98-107); Globulin 3.7 g/dL (1.3-4.6); Glucose 79 mg/dL (65-115); Osmolality Calculated 285 mOsm/kg (285-295); Sodium 138 mmol/L (136-145); Total Bilirubin 0.3 mg/dL (0.15-1.2); Total Protein 7.2 g/dL (6.6-8.7)
[2022-01-29] MEDS: sodium chloride 0.9% 500 ML 999 ML IV (10:45)
[2022-01-29 10:52] VITALS: BP 96/63; PULSE 72; RESP 18; O2SAT 95
[2022-01-29 11:30] VITALS: BP 96/63; PULSE 72; RESP 18; O2SAT 95
== END 2022-02-03 23:59 | disposition home or self-care (01) ==
PROVIDERS: PCP Family Medicine; Visit Provider Internal Medicine Medical Oncology
DX: C18.7 Malignant neoplasm of sigmoid colon (principal)
CPT/HCPCS: 80053; 82378; 83036; 85025; 96365; 99214; J7030; J7040

== ENCOUNTER → 2022-02-19 10:29 | Outpatient (BNVA) | payer MEDICARE, OTHER, SELFPAY | PROVIDERS: PCP Family Medicine; Visit Provider Nurse Practitioner | DX: C18.7 Malignant neoplasm of sigmoid colon (principal) | CPT/HCPCS: 99215 ==

== ENCOUNTER 2022-03-05 09:00 | Oncology outpatient (recurring) (ONCR) | payer MEDICARE, OTHER, SELFPAY ==
[2022-02-13 11:28] VITALS: BP 122/75; PULSE 84; RESP 18; TEMP 36.5; O2SAT 97
[2022-02-13] MEDS: alteplase 1 mg/mL SDV 2 mL 2 MG INTRACATH (12:21)
[2022-02-13] MEDS: sodium chloride 0.9% 500 ML 999 ML IV (13:22)
[2022-02-13 13:34] LABS: Basophils % 0.2 %; Eosinophils % 0.8 %; Hematocrit 24.3 % (42.0-52.0); Hemoglobin 7.8 g/dL (11.7-16.6); Lymphocytes # 0.8 10^3/uL (0.8-4.8); Lymphocytes % 14.4 %; Mean Corpuscular HGB Conc 32.1 g/dL (30.0-36.0); Mean Corpuscular Hemoglobin 29.2 pg (28.0-34.0); Mean Platelet Volume 10.7 fL (7.4-10.4); Monocytes # 0.4 10^3/uL (0.2-0.9); Monocytes % 6.7 %; Neutrophils % 76.9 %; Nucleated Red Blood Cells % 0 %; Platelet Count 85 10^3/cmm (130-400); Red Blood Count 2.67 10^6/uL (4.1-5.3); Red Cell Distribution Width 15.7 % (12.1-15.1); White Blood Count 5.2 10^3/uL (4.0-10.0)
[2022-02-13 13:52] LABS: Alanine Aminotransferase 6 U/L (0-41); Albumin Level 3.3 g/dL (3.5-5.2); Alkaline Phosphatase 69 U/L (40-130); Anion Gap 14.8 (5-19); Aspartate Amino Transferase 12 U/L (0-40); Blood Urea Nitrogen 15 mg/dL (8-23); Calcium 8.6 mg/dL (8.5-10.5); Carbon Dioxide 19 mmol/L (22-29); Chloride 106 mmol/L (98-107); Globulin 3.4 g/dL (1.3-4.6); Glucose 101 mg/dL (65-115); Osmolality Calculated 285 mOsm/kg (285-295); Sodium 137 mmol/L (136-145); Total Bilirubin 0.5 mg/dL (0.15-1.2); Total Protein 6.7 g/dL (6.6-8.7)
[2022-02-13 13:57] LABS: Potassium 2.8 mmol/L (3.5-5.1)
[2022-02-13] MEDS: potassium chloride premix 100 ML 50 MEQ IV (14:35)
[2022-02-13 14:38] VITALS: BP 103/69; PULSE 70; RESP 18; TEMP 36.5; O2SAT 94
[2022-02-13 16:38] VITALS: BP 108/74; PULSE 74; RESP 18; TEMP 37.1; O2SAT 96
[2022-02-14] VITALS (11 sets, daily range): BP systolic 96–104; BP diastolic 59–74; PULSE 64–94; RESP 16; TEMP 36.1–37.4; O2SAT 96–99
[2022-02-14] MEDS: diphenhydrAMINE 25 mg Capsule PO (07:52)
[2022-02-14] MEDS: acetaminophen 325 mg Tablet 650 MG PO (07:52)
[2022-02-14] MEDS: sodium chloride 0.9% 250 ML IV (07:53)
[2022-02-14] MEDS: FUROsemide 10 mg/mL SDV 2mL 20 MG IVP (09:54)
[2022-02-19 11:16] VITALS: BP 118/81; PULSE 79; RESP 18; TEMP 36.4; O2SAT 99
[2022-02-19 11:16] LABS: Basophils % 0.3 %; Eosinophils # 0.1 10^3/uL (0.0-0.8); Eosinophils % 1.7 %; Hemoglobin 11.4 g/dL (11.7-16.6); Lymphocytes # 0.9 10^3/uL (0.8-4.8); Lymphocytes % 25.3 %; Mean Corpuscular HGB Conc 31.7 g/dL (30.0-36.0); Mean Corpuscular Volume 91.6 fl (80-94); Mean Platelet Volume 9.6 fL (7.4-10.4); Monocytes # 0.5 10^3/uL (0.2-0.9); Monocytes % 13.2 %; Neutrophils # 2.11 10^3/uL (1.8-7.7); Neutrophils % 59.2 %; Nucleated Red Blood Cells % 0 %; Platelet Count 164 10^3/cmm (130-400); Red Blood Count 3.93 10^6/uL (4.1-5.3); Red Cell Distribution Width 15.6 % (12.1-15.1); White Blood Count 3.6 10^3/uL (4.0-10.0)
[2022-02-19] MEDS: sodium chloride 0.9% 500 ML 999 ML IV (11:23)
[2022-02-19 11:41] LABS: Alanine Aminotransferase 11 U/L (0-41); Albumin Level 3.5 g/dL (3.5-5.2); Alkaline Phosphatase 86 U/L (40-130); Anion Gap 15.9 (5-19); Aspartate Amino Transferase 16 U/L (0-40); Blood Urea Nitrogen 17 mg/dL (8-23); Calcium 8.7 mg/dL (8.5-10.5); Carbon Dioxide 18 mmol/L (22-29); Chloride 108 mmol/L (98-107); Globulin 3.9 g/dL (1.3-4.6); Glucose 74 mg/dL (65-115); Osmolality Calculated 288 mOsm/kg (285-295); Sodium 139 mmol/L (136-145); Total Bilirubin 0.4 mg/dL (0.15-1.2); Total Protein 7.4 g/dL (6.6-8.7)
[2022-02-19 11:43] LABS: Potassium 2.9 mmol/L (3.5-5.1)
[2022-02-19] MEDS: potassium chloride premix 100 ML 100 MEQ IV (13:42)
[2022-02-19 14:47] VITALS: BP 110/73; PULSE 79; RESP 18; TEMP 36.6; O2SAT 96
[2022-02-19 15:57] LABS: Magnesium 1.6 mg/dL (1.7-2.3)
[2022-02-26 09:08] VITALS: BP 107/67; PULSE 73; RESP 18; TEMP 36.5; O2SAT 97
[2022-02-26 09:23] LABS: Basophils # 0.1 10^3/uL (0.0-0.1); Basophils % 1.2 %; Eosinophils # 0.1 10^3/uL (0.0-0.8); Eosinophils % 1.3 %; Hematocrit 34.5 % (42.0-52.0); Hemoglobin 10.9 g/dL (11.7-16.6); Lymphocytes # 0.9 10^3/uL (0.8-4.8); Lymphocytes % 17.9 %; Mean Corpuscular HGB Conc 31.6 g/dL (30.0-36.0); Mean Corpuscular Hemoglobin 29.1 pg (28.0-34.0); Mean Platelet Volume 9.7 fL (7.4-10.4); Monocytes # 0.8 10^3/uL (0.2-0.9); Monocytes % 14.4 %; Neutrophils # 3.36 10^3/uL (1.8-7.7); Neutrophils % 64.4 %; Nucleated Red Blood Cells % 0 %; Platelet Count 152 10^3/cmm (130-400); Red Blood Count 3.75 10^6/uL (4.1-5.3); Red Cell Distribution Width 15.9 % (12.1-15.1); White Blood Count 5.2 10^3/uL (4.0-10.0)
[2022-02-26] MEDS: sodium chloride 0.9% 500 ML 999 ML IV (09:28)
[2022-02-26 09:49] LABS: Alanine Aminotransferase 8 U/L (0-41); Albumin Level 3.1 g/dL (3.5-5.2); Alkaline Phosphatase 82 U/L (40-130); Anion Gap 14.2 (5-19); Aspartate Amino Transferase 14 U/L (0-40); Blood Urea Nitrogen 12 mg/dL (8-23); Calcium 8.1 mg/dL (8.5-10.5); Carbon Dioxide 21 mmol/L (22-29); Chloride 106 mmol/L (98-107); Globulin 3.7 g/dL (1.3-4.6); Glucose 95 mg/dL (65-115); Osmolality Calculated 286 mOsm/kg (285-295); Potassium 3.2 mmol/L (3.5-5.1); Sodium 138 mmol/L (136-145); Total Bilirubin 0.4 mg/dL (0.15-1.2); Total Protein 6.8 g/dL (6.6-8.7)
[2022-02-26] MEDS: sodium chloride 0.9% 500 ML 525 ML IV (10:29)
[2022-02-26] MEDS: potassium chloride premix 100 ML 100 MEQ IV (10:31)
[2022-02-26 11:37] VITALS: BP 122/84; PULSE 65; RESP 18; TEMP 36.8; O2SAT 98
[2022-03-05 08:59] VITALS: BP 118/80; PULSE 73; RESP 18; TEMP 36.1; O2SAT 96
[2022-03-05] MEDS: sodium chloride 0.9% 500 ML 999 ML IV (09:23)
[2022-03-05 09:33] LABS: Basophils % 0.5 %; Eosinophils # 0.1 10^3/uL (0.0-0.8); Eosinophils % 0.8 %; Hematocrit 34.6 % (42.0-52.0); Hemoglobin 10.9 g/dL (11.7-16.6); Lymphocytes % 13.9 %; Mean Corpuscular HGB Conc 31.5 g/dL (30.0-36.0); Mean Corpuscular Hemoglobin 28.6 pg (28.0-34.0); Mean Corpuscular Volume 90.8 fl (80-94); Mean Platelet Volume 10.3 fL (7.4-10.4); Monocytes # 0.8 10^3/uL (0.2-0.9); Monocytes % 11.2 %; Neutrophils # 5.33 10^3/uL (1.8-7.7); Neutrophils % 72.9 %; Nucleated Red Blood Cells % 0 %; Platelet Count 118 10^3/cmm (130-400); Red Blood Count 3.81 10^6/uL (4.1-5.3); Red Cell Distribution Width 16.1 % (12.1-15.1); White Blood Count 7.3 10^3/uL (4.0-10.0)
[2022-03-05 09:50] LABS: Alanine Aminotransferase 8 U/L (0-41); Albumin Level 3.4 g/dL (3.5-5.2); Alkaline Phosphatase 103 U/L (40-130); Aspartate Amino Transferase 17 U/L (0-40); Blood Urea Nitrogen 15 mg/dL (8-23); Calcium 8.4 mg/dL (8.5-10.5); Carbon Dioxide 16 mmol/L (22-29); Chloride 109 mmol/L (98-107); Globulin 3.7 g/dL (1.3-4.6); Glucose 74 mg/dL (65-115); Osmolality Calculated 281 mOsm/kg (285-295); Sodium 136 mmol/L (136-145); Total Bilirubin 0.4 mg/dL (0.15-1.2); Total Protein 7.1 g/dL (6.6-8.7)
[2022-03-05 11:27] VITALS: BP 161/81; PULSE 50; RESP 18; TEMP 36.7; O2SAT 99
== END 2022-03-05 23:59 | disposition home or self-care (01) ==
PROVIDERS: Nurse Practitioner; PCP Family Medicine; Visit Provider Internal Medicine Medical Oncology
DX: C18.7 Malignant neoplasm of sigmoid colon (principal)
CPT/HCPCS: 36430; 36593; 80053; 80503; 83735; 85025; 86850; 86870; 86900; 86902; 86920; 96365; 96366; 96375; 99214; J1940; J2997; J3480; J7040; J7050; P9016

== ENCOUNTER 2022-04-04 09:45 | Oncology outpatient (recurring) (ONCR) | payer MEDICARE, OTHER, SELFPAY ==
[2022-03-06 08:39] VITALS: BP 111/74; PULSE 70; RESP 18; TEMP 36.2; O2SAT 99
[2022-03-06] MEDS: sodium chlor 0.9% + KCl 40 mEq 40 MEQ/1,000 ML BAG 550 MEQ IV (08:56)
[2022-03-06 10:03] LABS: Magnesium 1.9 mg/dL (1.7-2.3)
[2022-03-06 11:14] VITALS: BP 124/73; PULSE 68; RESP 18; TEMP 36.8; O2SAT 99
[2022-03-10] MEDS: sodium chloride 0.9% 500 ML 999 ML IV (10:00)
[2022-03-10 10:27] LABS: Anion Gap 14.4 (5-19); Blood Urea Nitrogen 14 mg/dL (8-23); Calcium 8.6 mg/dL (8.5-10.5); Carbon Dioxide 20 mmol/L (22-29); Chloride 102 mmol/L (98-107); Glucose 82 mg/dL (65-115); Osmolality Calculated 276 mOsm/kg (285-295); Potassium 3.4 mmol/L (3.5-5.1); Sodium 133 mmol/L (136-145)
[2022-03-10] MEDS: potassium chloride premix 100 ML 25 MEQ IV (10:51)
[2022-03-10] MEDS: sodium chloride 0.9% 250 ML IV (10:51)
[2022-03-17] MEDS: sodium chloride 0.9% 500 ML 999 ML IV (09:25)
[2022-03-17 09:36] LABS: Basophils # 0.1 10^3/uL (0.0-0.1); Basophils % 0.8 %; Eosinophils # 0.4 10^3/uL (0.0-0.8); Eosinophils % 3.6 %; Hematocrit 34.8 % (42.0-52.0); Lymphocytes # 1.4 10^3/uL (0.8-4.8); Lymphocytes % 12.5 %; Mean Corpuscular HGB Conc 31.6 g/dL (30.0-36.0); Mean Corpuscular Hemoglobin 28.6 pg (28.0-34.0); Mean Corpuscular Volume 90.4 fl (80-94); Mean Platelet Volume 9.6 fL (7.4-10.4); Monocytes # 1.1 10^3/uL (0.2-0.9); Neutrophils # 7.89 10^3/uL (1.8-7.7); Neutrophils % 72.5 %; Nucleated Red Blood Cells % 0 %; Platelet Count 208 10^3/cmm (130-400); Red Blood Count 3.85 10^6/uL (4.1-5.3); Red Cell Distribution Width 15.9 % (12.1-15.1); White Blood Count 10.9 10^3/uL (4.0-10.0)
[2022-03-17 10:05] LABS: Alanine Aminotransferase 8 U/L (0-41); Albumin Level 3.3 g/dL (3.5-5.2); Alkaline Phosphatase 113 U/L (40-130); Aspartate Amino Transferase 18 U/L (0-40); Blood Urea Nitrogen 11 mg/dL (8-23); Calcium 8.7 mg/dL (8.5-10.5); Carbon Dioxide 21 mmol/L (22-29); Chloride 101 mmol/L (98-107); Globulin 4.1 g/dL (1.3-4.6); Glucose 79 mg/dL (65-115); Osmolality Calculated 272 mOsm/kg (285-295); Sodium 132 mmol/L (136-145); Total Bilirubin 0.4 mg/dL (0.15-1.2); Total Protein 7.4 g/dL (6.6-8.7)
[2022-03-17] MEDS: potassium chloride premix 100 ML 25 MEQ IV (10:36)
[2022-03-17 12:27] VITALS: BP 113/69; PULSE 69; TEMP 37; O2SAT 99
[2022-03-20] MEDS: sodium chloride 0.9% 500 ML 999 ML IV (09:12)
[2022-03-20 09:14] LABS: Basophils # 0.1 10^3/uL (0.0-0.1); Basophils % 0.6 %; Eosinophils # 0.4 10^3/uL (0.0-0.8); Hematocrit 33.8 % (42.0-52.0); Hemoglobin 10.6 g/dL (11.7-16.6); Lymphocytes # 1.2 10^3/uL (0.8-4.8); Lymphocytes % 13.3 %; Mean Corpuscular HGB Conc 31.4 g/dL (30.0-36.0); Mean Corpuscular Hemoglobin 28.3 pg (28.0-34.0); Mean Corpuscular Volume 90.1 fl (80-94); Monocytes % 10.5 %; Neutrophils # 6.58 10^3/uL (1.8-7.7); Neutrophils % 71.1 %; Nucleated Red Blood Cells % 0 %; Platelet Count 177 10^3/cmm (130-400); Red Blood Count 3.75 10^6/uL (4.1-5.3); Red Cell Distribution Width 15.9 % (12.1-15.1); White Blood Count 9.3 10^3/uL (4.0-10.0)
[2022-03-20 09:33] LABS: Alanine Aminotransferase 8 U/L (0-41); Albumin Level 3.4 g/dL (3.5-5.2); Alkaline Phosphatase 116 U/L (40-130); Aspartate Amino Transferase 20 U/L (0-40); Blood Urea Nitrogen 11 mg/dL (8-23); Calcium 8.4 mg/dL (8.5-10.5); Carbon Dioxide 22 mmol/L (22-29); Chloride 107 mmol/L (98-107); Globulin 3.5 g/dL (1.3-4.6); Glucose 77 mg/dL (65-115); Osmolality Calculated 284 mOsm/kg (285-295); Sodium 138 mmol/L (136-145); Total Bilirubin 0.4 mg/dL (0.15-1.2); Total Protein 6.9 g/dL (6.6-8.7)
[2022-03-20 09:39] LABS: Anion Gap 12.5 (5-19); Potassium 3.5 mmol/L (3.5-5.1)
[2022-03-20] MEDS: potassium chloride premix 100 ML 50 MEQ IV (10:16)
[2022-03-20 12:30] VITALS: BP 125/77; PULSE 68; RESP 18; TEMP 36.1; O2SAT 98
[2022-03-24] MEDS: sodium chloride 0.9% 500 ML 999 ML IV (09:06)
[2022-03-24 09:15] LABS: Basophils # 0.1 10^3/uL (0.0-0.1); Basophils % 0.8 %; Eosinophils # 0.4 10^3/uL (0.0-0.8); Eosinophils % 3.7 %; Hematocrit 33.4 % (42.0-52.0); Hemoglobin 10.5 g/dL (11.7-16.6); Lymphocytes # 1.1 10^3/uL (0.8-4.8); Lymphocytes % 11.6 %; Mean Corpuscular HGB Conc 31.4 g/dL (30.0-36.0); Mean Corpuscular Hemoglobin 28.3 pg (28.0-34.0); Mean Platelet Volume 9.7 fL (7.4-10.4); Monocytes % 10.2 %; Neutrophils # 7.02 10^3/uL (1.8-7.7); Neutrophils % 73.1 %; Nucleated Red Blood Cells % 0 %; Platelet Count 160 10^3/cmm (130-400); Red Blood Count 3.71 10^6/uL (4.1-5.3); Red Cell Distribution Width 15.9 % (12.1-15.1); White Blood Count 9.6 10^3/uL (4.0-10.0)
[2022-03-24 09:39] LABS: Alanine Aminotransferase 10 U/L (0-41); Albumin Level 3.4 g/dL (3.5-5.2); Alkaline Phosphatase 142 U/L (40-130); Anion Gap 15.2 (5-19); Aspartate Amino Transferase 21 U/L (0-40); Blood Urea Nitrogen 13 mg/dL (8-23); Calcium 8.4 mg/dL (8.5-10.5); Carbon Dioxide 23 mmol/L (22-29); Chloride 104 mmol/L (98-107); Globulin 3.6 g/dL (1.3-4.6); Glucose 78 mg/dL (65-115); Osmolality Calculated 287 mOsm/kg (285-295); Potassium 3.2 mmol/L (3.5-5.1); Sodium 139 mmol/L (136-145); Total Bilirubin 0.6 mg/dL (0.15-1.2)
[2022-03-24] MEDS: potassium chloride premix 100 ML 50 MEQ IV (09:56)
[2022-04-02 10:22] LABS: Basophils # 0.1 10^3/uL (0.0-0.1); Basophils % 0.7 %; Eosinophils # 0.4 10^3/uL (0.0-0.8); Eosinophils % 3.2 %; Hematocrit 35.3 % (42.0-52.0); Hemoglobin 11.1 g/dL (11.7-16.6); Lymphocytes # 1.1 10^3/uL (0.8-4.8); Lymphocytes % 9.5 %; Mean Corpuscular HGB Conc 31.4 g/dL (30.0-36.0); Mean Corpuscular Hemoglobin 28.1 pg (28.0-34.0); Mean Corpuscular Volume 89.4 fl (80-94); Mean Platelet Volume 9.2 fL (7.4-10.4); Monocytes # 0.9 10^3/uL (0.2-0.9); Monocytes % 8.4 %; Neutrophils # 8.61 10^3/uL (1.8-7.7); Neutrophils % 77.5 %; Nucleated Red Blood Cells % 0 %; Platelet Count 202 10^3/cmm (130-400); Red Blood Count 3.95 10^6/uL (4.1-5.3); Red Cell Distribution Width 15.1 % (12.1-15.1); White Blood Count 11.1 10^3/uL (4.0-10.0)
[2022-04-02 10:47] LABS: Alanine Aminotransferase 10 U/L (0-41); Albumin Level 3.3 g/dL (3.5-5.2); Alkaline Phosphatase 169 U/L (40-130); Anion Gap 11.2 (5-19); Aspartate Amino Transferase 20 U/L (0-40); Blood Urea Nitrogen 11 mg/dL (8-23); Calcium 8.6 mg/dL (8.5-10.5); Carbon Dioxide 25 mmol/L (22-29); Chloride 105 mmol/L (98-107); Globulin 4.1 g/dL (1.3-4.6); Glucose 87 mg/dL (65-115); Osmolality Calculated 285 mOsm/kg (285-295); Potassium 3.2 mmol/L (3.5-5.1); Sodium 138 mmol/L (136-145); Total Bilirubin 0.5 mg/dL (0.15-1.2); Total Protein 7.4 g/dL (6.6-8.7)
[2022-04-02] MEDS: sodium chloride 0.9% 500 ML 999 ML IV (11:38)
[2022-04-02 12:49] VITALS: BP 106/70; PULSE 70; RESP 16; TEMP 36.4; O2SAT 96
[2022-04-04] MEDS: sodium chloride 0.9% 500 ML 999 ML IV (09:54)
[2022-04-04 09:59] VITALS: BMI 22.8
[2022-04-04 10:41] VITALS: BP 102/66; PULSE 72; RESP 18; TEMP 36.6; O2SAT 94
== END 2022-04-05 23:59 | disposition home or self-care (01) ==
PROVIDERS: PCP Family Medicine; Visit Provider Internal Medicine Medical Oncology
DX: C18.7 Malignant neoplasm of sigmoid colon (principal); Z79.899 Other long term (current) drug therapy
CPT/HCPCS: 80048; 80053; 82378; 83735; 85025; 96365; 96366; 99214; J3480; J7030; J7040; J7050

== ENCOUNTER 2022-04-10 06:55 | Outpatient (CLI) | payer MEDICARE, OTHER, SELFPAY ==
[2022-04-10 07:06] VITALS: BMI 22.8
--- NOTE | 2022-04-10 07:24 | NMCV_ITS ---
NM brooke perf SPECT r/s* [id number] Gulshan Braga Age: 72 Gender: M : 1950 Exam Date: 04/10/2022 08:18 Ordering Phys: Lourdes Sharif MD ([email or web address]) Technologist: BRYANT Burton Exam Location: [facility] Indications: Extertional SOB, ATHEROSCLEROTIC HEART DISEASE OF [place] CORONARY ARTERY STRESS TEST Please see separate stress test report in [facility] for full findings IMAGE PROTOCOL Rest/Stress 1 Lexiscan Day Radiopharmaceutical Dose (mCi) Administration Site Administered by Rest: Tc-99m 10.7 IV BRYANT Wright Sestamibi Stress:Tc-99m 32.1 IV BRYANT Wright Sestamibi Rest: 10-Apr-2022 60 Discovery 630 Stress: 10-Apr-2022 30 Discovery 630 0.4mg Lexiscan. Supine position only as patient was unable to lay prone. SPECT RESULTS Technical Quality: Excellent Raw Data Analysis: Normal Image Corrections: No attenuation or motion correction applied Summed Stress Score: 23 Summed Rest Score: 20 Summed Difference Score: 4 PERFUSION FINDINGS Large sized perfusion abnormality of moderate to severe severity of basal to apical inferior, basal to mid inferolateral, basal to mid inferoseptal, apical septal and apical lateral hutchinson with subtle reversibility in basal hutchinson. FUNCTIONAL RESULTS (calculated via Gated SPECT) Stress Image LV EF (%): 60 Stress EDV (mL):130 TID: 1.05 Stress ESV (mL):52 FUNCTIONAL FINDINGS: The left ventricle is normal in size. Transient Ischemia Dilatation of 1.1. The left ventricular ejection fraction is normal with a value of 60%. There seems to be hypokinesis of apical inferior wall. IMPRESSIONS 1. Large sized predominantly fixed perfusion abnormality of moderate to severe severity of basal to apical inferior, basal to mid inferolateral, basal to mid inferoseptal, apical septal and apical lateral hutchinson. 2. This is suggestive of old myocardial infarction in right coronary artery and circumflex artery territory with subtle vee-infarct ischemia. Attenuation artifact cannot be ruled out in abscence of prone imaging. 3. The left ventricular ejection fraction is normal with a value of 60%. There is possible hypokinesis of apical inferior wall. 4. EKG portion of the study will be reported separately. Lourdes Sharif MD (Electronically Signed) Final Date: 15 April 2022 19:59 S
--- NOTE | 2022-04-10 07:24 | ECG_ITS ---
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 Interpretive Statements NAME OF STUDY: LEXISCAN SESTAMIBI STRESS TEST INDICATION: Chest Pain, History of CAD PROCEDURE: At the baseline, the blood pressure was 126/73 mm Hg with a heart rate of 65 bpm. The electrocardiogram showed sinus rhythm, right axis deviation. Artifact. No significant ST and T wave changes. ??? The Lexiscan was infused over a period of 20 seconds. A total of 0.4 milligrams of Lexiscan was infused. The stress phase was continued for a total of 5 minutes. Heart rate at the end of the stress phase was 77 bpm with a blood pressure of 98/66 mm Hg. The EKG at the peak infusion revealed no significant St-T wave changes. ??? Sestamibi was injected 20 seconds after the Lexiscan infusion. ??? Blood pressure at the end of the recovery phase was 105/61 mm Hg with a heart rate of 79 beats per minute. ??? CONCLUSION: 1. No significant EKG changes with the LexiScan infusion. 2. No LexiScan induced chest pain or cardiac arrhythmia. 3. Normal blood pressure and heart rate response. 4. Sestamibi/sestamibi perfusion scan pending; see separate report. Electronically Signed On 04-13-2022 9:52:22 TOURIST GUIDE by Lourdes Sharif M.D. [id number]
[2022-04-10] MEDS: regadenoson 0.4 Mg/5 ml Syringe IVP (08:48)
[2022-04-10 08:57] VITALS: BP 105/61; PULSE 80
== END 2022-04-10 06:56 | disposition home or self-care (01) ==
LOC: CDL 06:57
PROVIDERS: PCP Family Medicine; Visit Provider Internal Medicine Cardiovascular Disease
DX: R07.9 Chest pain, unspecified (principal); I25.10 Atherosclerotic heart disease of native coronary artery without angina pectoris
CPT/HCPCS: 36415; 78452; 93017; 96374; A9500; J2785

== ENCOUNTER 2022-04-21 19:14 | Inpatient (IN) | payer MEDICARE, OTHER, SELFPAY ==
--- NOTE | 2022-04-21 19:27 | XRR_ITS ---
PROCEDURE INFORMATION: Exam: XR Chest Exam date and time: 04/21/2022 7:35 PM Age: 72 years old Clinical indication: Shortness of breath; Additional info: SOB TECHNIQUE: Imaging protocol: Radiologic exam of the chest. Views: 1 view. COMPARISON: CT chest abd pel w con* 11/04/2021 2:22 PM FINDINGS: Tubes, catheters and devices: Left-sided port again seen. Lungs: Low lung volumes again seen with large amount of bowel beneath the diaphragm. Bilateral lung nodules and masses again seen. Scattered areas of atelectasis or scarring. Pleural spaces: Unremarkable. No pleural effusion. No pneumothorax. Heart/Mediastinum: CABG again seen. No cardiomegaly. Vasculature: Advanced diffuse vascular calcification noted. Bones/joints: Unremarkable. XR/XR chest 1V portable [id number] IMPRESSION: Stable chest from 11/04/2021. Known stage IV cancer. Full details above.
[2022-04-21 19:28] VITALS: BP 98/54; PULSE 81; RESP 22; TEMP 36.7; O2SAT 93; BMI 22.3
[2022-04-21 19:33] VITALS: BP 99/60; PULSE 95; O2SAT 92
[2022-04-21 19:41] LABS: Basophils % 0.1 %; Eosinophils % 0.1 %; Hematocrit 36.7 % (42.0-52.0); Hemoglobin 11.4 g/dL (11.7-16.6); Lymphocytes # 0.7 10^3/uL (0.8-4.8); Lymphocytes % 9.7 %; Mean Corpuscular HGB Conc 31.1 g/dL (30.0-36.0); Mean Corpuscular Hemoglobin 27.5 pg (28.0-34.0); Mean Corpuscular Volume 88.6 fl (80-94); Mean Platelet Volume 9.9 fL (7.4-10.4); Monocytes # 0.7 10^3/uL (0.2-0.9); Monocytes % 9.6 %; Neutrophils # 5.36 10^3/uL (1.8-7.7); Neutrophils % 79.3 %; Nucleated Red Blood Cells % 0 %; Platelet Count 127 10^3/cmm (130-400); Red Blood Count 4.14 10^6/uL (4.1-5.3); Red Cell Distribution Width 15.1 % (12.1-15.1); White Blood Count 6.8 10^3/uL (4.0-10.0)
[2022-04-21 19:44] LABS: INR 0.96 (0.8-1.2)
--- NOTE | 2022-04-21 19:59 | ED_ITS ---
HPI - SOB/Dyspnea General: Chief Complaint: Shortness of Breath/Dyspnea Stated Complaint: COVID+ Time Seen by Provider: 04/21/22 19:22 Source: patient and EMS Mode of arrival: EMS Limitations: no limitations History of Present Illness: HPI Narrative: 72-year-old male has a history of cancer states he had COVID exposure roughly 6 days ago he states that since then he has been having increasing cough and shortness of breath his shortness of breath got much worse tonight he was found to be 80% on room air he is currently on 4 L here. Denies any fever denies any pain anywhere. Associated symptoms: Deny abdominal pain, chest pain, fever(s), nausea or vomiting Review of Systems Const: Denies: fever(s), chills, body aches or change in appetite Eyes: Denies: blurry vision or eye discomfort ENMT: Denies: throat pain or dental pain Card: Denies: chest pain Resp: Reports: dyspnea and non-productive cough GI: Denies: abdominal pain, nausea, vomiting or diarrhea : Denies: dysuria Musc: Denies: neck pain or back pain Skin/Breast: Denies: rash Neuro: Denies: headache(s) Psych: Denies: depression Florencio/Lymph: Denies: easy bruising All/Imm: Denies: urticaria PFSH ED PFSH: Medical History CAD (coronary artery disease) CHF (congestive heart failure), NYHA class I Colon cancer Metastatic to multiple sites including lungs, liver, intra-abdominal lymph nodes, and left adrenal gland Diabetes Dyslipidemia Fatigue Hyperlipidemia Hypertension Hypokalemia Ischemic cardiomyopathy Nephrolithiasis PRIYA (obstructive sleep apnea) PVCs (premature ventricular contractions) Type 2 diabetes mellitus Surgical History History of appendectomy History of cataract extraction History of cholecystectomy History of lithotripsy (06/14/18) Extracorporeal shockwave lithotripsy with ureteral stent placement for left distal ureteral stone Hx of CABG 2014 Port-A-Cath in place (01/04/20) left subclavian Family History Other CAD (coronary artery disease) Myocardial infarction Social History Smoking and tobacco status: former smoker (smoked x 37 years) Quit status (tobacco): has quit using tobacco Year quit tobacco: 2004 Alcohol intake: never Physical Exam Const: COMMON NORMALS: patient oriented x3 GENERAL APPEARANCE: in distress and ill appearing HENMT: COMMON NORMALS: normocephalic and atraumatic HEAD & SCALP: normocephalic and atraumatic Eye: COMMON NORMALS: Equal, round and reactive pupils present and EOMs intact bilaterally PUPIL: Yes Equal, round and reactive pupils present Neck/C-Spine: COMMON NORMALS: full ROM and supple Chest: COMMONS NORMALS: normal inspection of the chest and normal palpation of entire chest wall Resp: COMMON NORMALS: No retractions and No use of accessory muscles EFFORT & INSPECTION: Yes tachypneic and Yes respiratory distress AUSCULTATION: rales Cardio: COMMON NORMALS: regular rate, regular rhythm and No murmurs present (Cardio) RATE: regular rate RHYTHM: regular rhythm GI: COMMON NORMALS: Normal to inspection, nondistended, normoactive bowel sounds present, Soft to palpation, non-tender and no masses PALPATION: Yes Soft to palpation Extremity: COMMON NORMALS: normal to inspection and full ROM Neuro: COMMON NORMALS: patient oriented x3, moves all extremities and no focal motor deficits Psych: COMMON NORMALS: mental status grossly normal, Normal thought process present and cooperative THOUGHT PROCESS: Normal thought process present Skin: COMMON NORMALS: no rashes or lesions noted and no wounds GENERAL SKIN EXAM: no rashes or lesions noted Course Vital Signs: Vital signs: Vital Signs Temperature 98.1 F 04/21/22 19:28 Pulse Rate 93 04/21/22 20:34 Respiratory Rate 20 H 04/21/22 20:34 Blood Pressure 99/60 04/21/22 19:33 Pulse Oximetry 94 04/21/22 20:34 Oxygen Delivery Me thod 04/21/22 20:34 Oxygen Flow Rate 3 04/21/22 20:34 MDM - SOB/Dyspnea Medical Decision Making Patient presents here with shortness of breath he is COVID-positive likely causing his dyspnea he is hypoxic here as well. I spoke to the hospitalist will admit at this time. Lab Data 04/21/22 18:56 04/21/22 18:56 Labs/Radiology: Radiology Impressions Chest X-Ray 04/21/22 19:27 IMPRESSION: Stable chest from 11/04/2021. Known stage IV cancer. Full details above. Laboratory Results WBC 6.8 10^3/uL (4.0-10.0) 04/21/22 18:56 RBC 4.14 10^6/uL (4.1-5.3) 04/21/22 18:56 Hgb 11.4 g/dL (11.7-16.6) L 04/21/22 18:56 Hct 36.7 % (42.0-52.0) L 04/21/22 18:56 MCV 88.6 fl (80-94) 04/21/22 18:56 MCH 27.5 pg (28.0-34.0) L 04/21/22 18:56 MCHC 31.1 g/dL (30.0-36.0) 04/21/22 18:56 RDW 15.1 % (12.1-15.1) 04/21/22 18:56 Plt Count 127 10^3/cmm (130-400) L 04/21/22 18:56 MPV 9.9 fL (7.4-10.4) 04/21/22 18:56 Neut % (Auto) 79.3 % 04/21/22 18:56 Lymph % (Auto) 9.7 % 04/21/22 18:56 Winston % (Auto) 9.6 % 04/21/22 18:56 Eos % (Auto) 0.1 % 04/21/22 18:56 Baso % (Auto) 0.1 % 04/21/22 18:56 Neut # (Auto) 5.36 10^3/uL (1.8-7.7) 04/21/22 18:56 Lymph # (Auto) 0.7 10^3/uL (0.8-4.8) L 04/21/22 18:56 Winston # (Auto) 0.7 10^3/uL (0.2-0.9) 04/21/22 18:56 Eos # (Auto) 0.0 10^3/uL (0.0-0.8) 04/21/22 18:56 Baso # (Auto) 0.0 10^3/uL (0.0-0.1) 04/21/22 18:56 Nucleated RBC % (auto) 0 % 04/21/22 18:56 Nucleated RBCs # 0.0 /100WBC 04/21/22 18:56 PT 13.10 SECONDS (12.1-14.9) 04/21/22 18:56 INR 0.96 (0.8-1.2) 04/21/22 18:56 Specimen Type Arterial 04/21/22 20:33 Sample Site Radial, left 04/21/22 20:33 ABG pH 7.42 (7.35-7.45) 04/21/22 20:33 ABG pCO2 28.5 mmHg (35-45) L 04/21/22 20:33 ABG pO2 62.7 mmHg (80.0-100.0) L 04/21/22 20:33 ABG HCO3 18.5 mmol/L (22-26) L 04/21/22 20:33 ABG Base Excess -4.6 mmol/L (-2.0-2.0) L 04/21/22 20:33 Anival Test Pos 04/21/22 20:33 Hematocrit 45.7 % (42-52) 04/21/22 20:33 Hgb O2 Saturation 90.5 % (95-100) L 04/21/22 20:33 Carboxyhemoglobin 1.2 %THgb (0.4-20.1) 04/21/22 20:33 Methemoglobin 0.6 % (0.4-1.5) 04/21/22 20:33 Total Hemoglobin 14.9 g/dL (14-18) 04/21/22 20:33 O2 Delivery Device Nc 04/21/22 20:33 O2 Liters/Min 3.0 % 04/21/22 20:33 FiO2 32.0 % 04/21/22 20:33 Mental Health Program Manager ID Isaiah 04/21/22 20:33 Sodium 139 mmol/L (136-145) 04/21/22 18:56 Potassium 4.0 mmol/L (3.5-5.1) 04/21/22 18:56 Chloride 102 mmol/L (98-107) 04/21/22 18:56 Carbon Dioxide 21 mmol/L (22-29) L 04/21/22 18:56 Anion Gap 20.0 (5-19) H 04/21/22 18:56 BUN 21 mg/dL (8-23) 04/21/22 18:56 Creatinine 1.1 mg/dL (0.7-1.2) 04/21/22 18:56 GFR Calculation Not Reportable 04/21/22 18:56 Glucose 71 mg/dL (65-115) 04/21/22 18:56 Calculated Osmolality 289 mOsm/kg (285-295) 04/21/22 18:56 Lactic Acid 1.7 mmol/L (0.5-2.2) 04/21/22 20:06 Calcium 9.2 mg/dL (8.5-10.5) 04/21/22 18:56 Total Bilirubin 0.4 mg/dL (0.15-1.2) 04/21/22 18:56 AST 53 U/L (0-40) H 04/21/22 18:56 ALT 24 U/L (0-41) 04/21/22 18:56 Alkaline Phosphatase 401 U/L (40-130) H 04/21/22 18:56 NT-Pro-B Natriuret Pep 1947 pg/mL (0-125) H 04/21/22 18:56 Total Protein 8.0 g/dL (6.6-8.7) 04/21/22 18:56 Albumin 3.7 g/dL (3.5-5.2) 04/21/22 18:56 Globulin 4.3 g/dL (1.3-4.6) 04/21/22 18:56 Coronavirus 229E (PCR) Not detected (NOT DETECT) 04/21/22 19:40 Influenza Type A Ag negative (Negative) 04/21/22 19:40 Influenza Type B Ag negative (Negative) 04/21/22 19:40 SARS-CoV-2 (PCR) Detected (NOT DETECT) A 04/21/22 19:40 Discharge Plan Discharge Patient Disposition: Admitted As Inpatient Clinical Impression: COVID-19, Acute respiratory failure with hypoxemia Condition: Stable Prescriptions: No Action cholecalciferol (vitamin D3) 50 mcg (2,000 unit) capsule 50 mcg PO DAILY ferrous sulfate 325 mg (65 mg iron) tablet,delayed release (DR/EC) 325 mg PO DAILY magnesium oxide 400 mg magnesium capsule 400 mg PO BID potassium chloride 10 mEq capsule, extended release 10 meq PO BID Qty: 60 0RF diphenoxylate-atropine [Lomotil] 2.5-0.025 mg tablet 2 tab PO QID PRN (Reason: diarrhea) Qty: 60 0RF aspirin 81 mg tablet,delayed release (DR/EC) 81 mg PO DAILY Qty: 30 0RF ondansetron HCl 8 mg tablet 8 mg PO Q8H PRN (Reason: nausea and vomiting) Qty: 30 1RF pantoprazole 40 mg tablet,delayed release (DR/EC) 40 mg PO DAILY Qty: 30 1RF Lonsurf 20-8.19 mg tablet 2 tab PO BID Qty: 40 0RF Rx Instructions: Days 1-5 & 8-12, must take within 1 hr after completion of meal benzonatate 100 mg capsule 100 mg PO TID PRN (Reason: cough) Qty: 30 0RF prochlorperazine maleate 10 mg Tablet 10 mg PO Q4H PRN (Reason: Nausea) albuterol sulfate 90 mcg/actuation HFA aerosol inhaler 2 puff INHALATION Q6H PRN (Reason: Shortness Of Breath) Referrals: Janina Clinton DO [Primary Care Provider] - Coding Level of Care Code ED Electronic Gaming Device Supervisor for Chg Fwd Exam Comprehensive
[2022-04-21 20:04] LABS: Alanine Aminotransferase 24 U/L (0-41); Albumin Level 3.7 g/dL (3.5-5.2); Alkaline Phosphatase 401 U/L (40-130); Aspartate Amino Transferase 53 U/L (0-40); Blood Urea Nitrogen 21 mg/dL (8-23); Calcium 9.2 mg/dL (8.5-10.5); Carbon Dioxide 21 mmol/L (22-29); Chloride 102 mmol/L (98-107); Globulin 4.3 g/dL (1.3-4.6); Glucose 71 mg/dL (65-115); NT Pro B Type Natriuretic Pept 1947 pg/mL (0-125); Osmolality Calculated 289 mOsm/kg (285-295); Sodium 139 mmol/L (136-145); Total Bilirubin 0.4 mg/dL (0.15-1.2)
[2022-04-21 20:11] LABS: Influenza A by IFA negative (Negative); Influenza B by IFA negative (Negative)
[2022-04-21 20:27] VITALS: PULSE 87; RESP 22; O2SAT 93
[2022-04-21] MEDS: albuterol 2.5 mg/3 mL Neb INHALATION (20:27)
[2022-04-21 20:32] LABS: Lactic Sepsis W/Reflex 1.7 mmol/L (0.5-2.2)
[2022-04-21 20:34] VITALS: PULSE 93; RESP 20; O2SAT 94
[2022-04-21 20:54] LABS: ABG PCO2 28.5 mmHg (35-45); ABG PH Result 7.42 (7.35-7.45); Arterial Blood Gas Hematocrit 45.7 % (42-52); Base Excess ABG -4.6 mmol/L (-2.0-2.0); Blood Gas Allen Test Pos; Blood Gas Sample Site Radial, left; Blood Gas Sample Type Arterial; Carboxyhemoglobin 1.2 %THgb (0.4-20.1); HCO3 ABG 18.5 mmol/L (22-26); HGB O2 Sat 90.5 % (95-100); Methemoglobin 0.6 % (0.4-1.5); Oxygen Device NC; PO2 ABG 62.7 mmHg (80.0-100.0); Total Hemoglobin 14.9 g/dL (14-18)
[2022-04-21 21:38] LABS: Adenovirus Not Detected (NOT DETECT); Chlamydia Pneumoniae Not Detected (NOT DETECT); Coronavirus 229E,HKU1,NL63,OC4 Not Detected (NOT DETECT); Human Metapneumovirus Not Detected (NOT DETECT); Human Rhinovirus/Enterovirus Not Detected (NOT DETECT); Influenza A Not Detected (NOT DETECT); Influenza A H1 Not Detected (NOT DETECT); Influenza A H1-2009 Not Detected (NOT DETECT); Influenza A H3 Not Detected (NOT DETECT); Influenza B Not Detected (NOT DETECT); Mycoplasma Pneumoniae Not Detected (NOT DETECT); Parainfluenza Virus Type 1 Not Detected (NOT DETECT); Parainfluenza Virus Type 2 Not Detected (NOT DETECT); Parainfluenza Virus Type 3 Not Detected (NOT DETECT); Parainfluenza Virus Type 4 Not Detected (NOT DETECT); Respiratory Syncytial Virus A Not Detected (NOT DETECT); Respiratory Syncytial Virus B Not Detected (NOT DETECT); SARS-COV-2 Detected (NOT DETECT)
--- NOTE | 2022-04-21 23:05 | CTR_ITS ---
PROCEDURE INFORMATION: Exam: CTA Chest With Contrast Exam date and time: 04/22/2022 12:59 AM Age: 72 years old Clinical indication: Abnormal findings; Abnormal diagnostic tests; Elevated d-dimer; Cough and shortness of breath; Prior surgery; Surgery type: Cabg. Chestport. Gb. Patient HX: Cough with SOB. Elevated d dimer. History of metastatic colon cancer. TECHNIQUE: Imaging protocol: Computed tomographic angiography of the chest with contrast. 3D rendering (Not supervised by radiologist): MIP and/or 3D reconstructed images were created by the technologist. Radiation optimization: All CT scans at this facility use at least one of these dose optimization techniques: automated exposure control; mA and/or kV adjustment per patient size (includes targeted exams where dose is matched to clinical indication); or iterative reconstruction. Contrast material: OMNI 350; Contrast volume: 82 ml; Contrast route: INTRAVENOUS (IV); COMPARISON: CT chest abd pel w con* 11/04/2021 2:22 PM RADIATION DOSE METRICS: Total DLP (mGy-cm): 292.18 FINDINGS: Tubes, catheters and devices: Left-sided port is unchanged. Pulmonary arteries: No PE visualized. Aorta: Ascending thoracic aorta measures up to 3.9 cm. Lungs: A left midlung large mass is present, measuring up to 5.7 cm. This previously measured up to about 4.3 cm. There are progressive bilateral pulmonary nodules and masses throughout the lungs. Progressive cancer is present. Most nodules/masses are larger by at least 40%. A large LLL mass now measures about 6.0 cm, larger from 4.6 cm. Progressive areas of hazy atelectasis or pneumonitis as well. Pleural spaces: Minute bilateral pleural effusions. No large effusion or evidence of pneumothorax. Heart: The heart is not enlarged. No pericardial effusion is noted. Coronary arteries: Previous CABG. Lymph nodes: Pleural and hilar tip metastases are mildly larger. Liver: Multiple hepatic metastatic foci are again seen. A left lobe lesion previously measured up to 3.5 cm. Today it measures up to about 3.7 cm. Other liver masses do seem larger throughout. Stomach and bowel: Large dilated bowel again seen beneath the diaphragm. This is largely colon. Intraperitoneal space: Partially calcified upper abdominal tip metastases are also noted. These are mildly larger. Bones/joints: Severe osteopenia. Soft tissues: Unremarkable. Other findings: Advanced diffuse vascular calcification noted. CT/CT angio chest PE protcl [id number] IMPRESSION: 1. In this patient with known stage IV cancer, the findings have, especially in the lungs, considerably progressed from 11/04/2021. This is concerning. Full details are given above. 2. No PE identified. 3. Likely moderate ileus, partially imaged, with progressive hepatic and upper abdominal tip metastases as well.
[2022-04-21 23:20] LABS: D Dimer 1.41 ug/mIFEU (0-0.59)
[2022-04-21] MEDS: dexamethasone 10 mg/mL INJ IVP (23:20)
--- NOTE | 2022-04-21 23:36 | P.HP_ITS ---
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 He denies any fevers, no chills, but does report fatigue, malaise. He lives by himself, his daughter lives near him. Does report a nonproductive cough, no chest pain, no palpitations. No sick contacts, recent travel, he does get fluid therapy through cancer care. He has been off chemotherapy due to development of neutropenia for some time. He follows up with Dr. Castillo. Denies any calf pain, no calf swelling, no hemoptysis. Currently he is sitting up to the side of the gurney, he tells me that he is more comfortable in this position, complains of shortness of breath while laying down, orthopnea Review of Systems Const: Reports: fatigue and malaise; Denies: fever(s) Eyes: Denies: change in vision Card: Denies: chest pain Resp: Reports: dyspnea and non-productive cough GI: Denies: abdominal pain, nausea or vomiting : Denies: difficulty urinating Musc: Reports: muscle weakness Skin/Breast: Denies: rash Neuro: Reports: weakness in extremities; Denies: headache(s), frequent falls, dizziness or confusion Endo: Denies: polyuria Medications/Allergies Home Medications Medication Instructions Recorded Confirmed Last Taken Type cholecalciferol (vitamin D3) 50 50 mcg PO DAILY 10/20/19 03/17/22 1 Month Ago History mcg (2,000 unit) capsule ~06/18/21 aspirin 81 mg tablet,delayed 81 mg PO DAILY #30 tabs 02/21/20 03/17/22 1 Month Ago Rx release ~06/18/21 pt states not taken ferrous sulfate 325 mg (65 mg 325 mg PO DAILY 12/13/20 03/17/22 1 Month Ago History iron) tablet,delayed release ~06/18/21 prochlorperazine maleate 10 mg 10 mg PO Q4H PRN Nausea 04/05/21 03/17/22 Unknown History tablet albuterol sulfate 90 mcg/actuation 2 puff inhalation Q6H PRN 07/19/21 03/17/22 Unknown History aerosol inhaler Shortness Of Breath magnesium oxide 400 mg PO BID 11/19/21 03/17/22 Unknown History ondansetron HCl 8 mg tablet 8 mg PO Q8H PRN nausea and 02/06/22 03/17/22 Unknown Rx vomiting #30 tabs pantoprazole 40 mg tablet,delayed 40 mg PO DAILY #30 tabs 02/06/22 03/17/22 Unknown Rx release trifluridine 20 mg-tipiracil 8.19 2 tab PO BID #40 tabs 02/25/22 03/17/22 Unknown Rx mg tablet (Lonsurf) diphenoxylate-atropine 2.5 2 tab PO QID PRN diarrhea #60 tabs 03/06/22 03/17/22 Unknown Rx mg-0.025 mg tablet (Lomotil) potassium chloride 10 mEq 10 meq PO BID #60 caps 03/06/22 03/17/22 Unknown Rx capsule,extended release benzonatate 100 mg capsule 100 mg PO TID PRN cough #30 caps 04/17/22 Unknown Rx Allergies Allergy/AdvReac Type Severity Reaction Status Date / Time Penicillins AdvReac ADR-Itching Verified 03/17/22 10:14 PFSH Acute PFSH: Medical History CAD (coronary artery disease) CHF (congestive heart failure), NYHA class I Colon cancer Metastatic to multiple sites including lungs, liver, intra-abdominal lymph nodes, and left adrenal gland Diabetes Dyslipidemia Fatigue Hyperlipidemia Hypertension Hypokalemia Ischemic cardiomyopathy Nephrolithiasis PRIYA (obstructive sleep apnea) PVCs (premature ventricular contractions) Type 2 diabetes mellitus Surgical History History of appendectomy History of cataract extraction History of cholecystectomy History of lithotripsy (06/14/18) Extracorporeal shockwave lithotripsy with ureteral stent placement for left distal ureteral stone Hx of CABG 2014 Port-A-Cath in place (01/04/20) left subclavian Family History Other CAD (coronary artery disease) Myocardial infarction Social History Smoking and tobacco status: former smoker (smoked x 37 years) Quit status (tobacco): has quit using tobacco Year quit tobacco: 2004 Alcohol intake: never Vitals/I&O/Wt Last Vital Signs Temp 98.1 F 04/21/22 19:28 Pulse 93 04/21/22 20:34 Resp 20 H 04/21/22 20:34 BP 99/60 04/21/22 19:33 Pulse Ox 94 04/21/22 20:34 O2 Del Method 04/21/22 20:34 O2 Flow Rate 3 04/21/22 20:34 Weight last 48 hrs Weight 64.637 kg Physical Exam Narrative: Currently sitting up to the side of bed, complaining shortness of breath Const: COMMON NORMALS: no acute distress and patient oriented x3 HENMT: COMMON NORMALS: normocephalic HEAD & SCALP: normocephalic Eye: COMMON NORMALS: Equal, round and reactive pupils present and EOMs intact bilaterally Neck/C-Spine: COMMON NORMALS: no JVD Lymph: LYMPHATIC: no lymphadenopathy noted Chest: COMMONS NORMALS: normal inspection of the chest OTHER: Left chest port in place left chest port in place Resp: COMMON NORMALS: normal respiratory effort, No retractions and No use of accessory muscles AUSCULTATION: crackles and wheezes Cardio: COMMON NORMALS: regular rate, regular rhythm, S1 normal heart sound present and S2 normal heart sound present RATE: regular rate RHYTHM: regular rhythm HEART SOUNDS: S1 normal heart sound present and S2 normal heart sound present GI: COMMON NORMALS: Normal to inspection, nondistended, normoactive bowel sounds present, Soft to palpation and non-tender PALPATION: Yes Soft to palpation, No Tenderness to palpation present (GI), No Guarding due to palpation present (GI) and No Rigid due to palpation Extremity: COMMON NORMALS: no calf tenderness and no pedal edema Neuro: COMMON NORMALS: patient oriented x3, CN's II-XII intact bilaterally and moves all extremities Psych: COMMON NORMALS: mental status grossly normal Data 04/21/22 18:56 04/21/22 18:56 A&P Assessment and plan (1) Acute respiratory failure with hypoxemia: (2) COVID-19: (3) CHF exacerbation: (4) Metastasis to lung: (5) CHF (congestive heart failure), NYHA class I: Qualifiers: Congestive heart failure type: diastolic Congestive heart failure chronicity: chronic Qualified Code(s): I50.32 - Chronic diastolic (congestive) heart failure (6) Ischemic cardiomyopathy: (7) PRIYA (obstructive sleep apnea): (8) Dyslipidemia: (9) Hypertension: (10) Type 2 diabetes mellitus: (11) Cancer: (12) Hypoxia: (13) Positive cardiac stress test: (14) Shock: Plan Acute hypoxic hypoxic respiratory failure -Secondary to COVID-19 pneumonia -Also fluiD overload, with elevated BNP, component of systolic CHF exacerbation -Recently had a positive stress test, but no active chest pain complaints but has been more short of breath -Also concern for secondary bacterial pneumonia Plan -I have ordered a troponin series, CT angiogram of the chest, pending results will depend on her disposition CSU versus MedSur -Troponin series -Cardiac echo -Elevated D-dimer, hypercoagulability with colon cancer with mets to the liver, CT angiogram of the chest -Decadron -Remdesivir -Rocephin and azithromycin for secondary bacterial pneumonia prophylaxis -Sputum cultures, blood cultures, Pro-Triston, CRP -DuoNeb treatment -Budesonide -Incentive spirometer, flutter valve -Full code -Lovenox for DVT prophylaxis Systolic CHF exacerbation -Cardiac echo -Serial EKGs, troponins, telemetry monitoring History of CAD -Coronary artery disease status post CABG x4 in 2014, history of ischemic cardiomyopathy -Recent stress testing -1. Large sized predominantly fixed perfusion abnormality of moderate to severe ?severity of basal to apical inferior, basal to mid inferolateral, basal to mid ?inferoseptal, apical septal and apical lateral hutchinson. ?2. This is suggestive of old myocardial infarction in right coronary artery and ?circumflex artery territory with subtle vee-infarct ischemia. Attenuation ?artifact cannot be ruled out in abscence of prone imaging. ?3. The left ventricular ejection fraction is normal with a value of 60%.? There ?is possible hypokinesis of apical inferior wall. ?4. EKG portion of the study will be reported separately. -No chest pain complaints -Serial EKGs, serial troponins, telemetry monitoring -Continue aspirin, statin, Type 2 diabetes mellitus, diet controlled, low-dose sliding scale Low blood pressures/SHOCK -Lactic acid within normal limits -Has a history of low blood pressures, get received fluid infusions through outpatient -Monitor blood pressures closely -Inflammatory markers Pro-Triston, CRP, troponin series, cardiac echo Attestations Medical Necessity Statement*: Patient requires hospitalization for acute hypoxic respiratory failure for COVID-19 pneumonia, hypoxia, CHF exacerbation, p ositive stress test Coding Level of Care Code Acute Code for [facility] Diagnoses Acute respiratory failure with hypoxemia J96.01 COVID-19 U07.1 CHF exacerbation I50.9 Metastasis to lung C78.00 CHF (congestive heart failure), NYHA class I I50.32 Congestive heart failure type: diastolic Congestive heart failure chronicity: chronic Ischemic cardiomyopathy I25.5 PRIYA (obstructive sleep apnea) G47.33 Dyslipidemia E78.5 Hypertension I10 Type 2 diabetes mellitus E11.9 Cancer C80.1 Hypoxia R09.02 Positive cardiac stress test R94.39 Shock R57.9
[2022-04-22] VITALS (17 sets, daily range): BP systolic 92–127; BP diastolic 60–89; PULSE 62–110; RESP 14–22; TEMP 36.1–36.7; O2SAT 90–97
[2022-04-22 00:16] LABS: Procalcitonin 0.21 ng/mL (0-0.5)
[2022-04-22 01:09] LABS: Troponin(5th) Baseline 31 ng/L (0-15)
[2022-04-22] MEDS: iohexol 350 mg/mL 500 mL Btl (per mL) IV (01:14)
--- NOTE | 2022-04-22 02:00 | USCV_ITS ---
Gulshan Braga Age: 72 Gender: M : 1950 Exam Date: 04/22/2022 03:31 Ordering Phys: Tian Hardin MD Technologist: ANIA Exam Location: [facility] [place] Indication: sob, stage IV colon CA, mets to liver, hx CABG, CAD, CHF, DM2, HTN. Patient unable to lie LPO, exam had to be done supine only. COVID isolation. BP: 116 / 96 HR: 87 Rhythm: Sinus Technical Quality: Technically difficult study due to supine only MEASUREMENTS (Male / Female) Normal Values 2D ECHO LV Diastolic Diameter PLAX 4.1 cm 4.2 - 5.9 / 3.9 - 5.3 cm LV Systolic Diameter PLAX 2.9 cm IVS Diastolic Thickness 1.3 cm 0.6 - 1.0 / 0.6 - 0.9 cm IVS Systolic Thickness 1.8 cm LVPW Diastolic Thickness 1.0 cm 0.6 - 1.0 / 0.6 - 0.9 cm LVPW Systolic Thickness 0.9 cm LVOT Diameter 2.3 cm LV Ejection Fraction 2D Teich 55.1 % LV Ejection Fraction MOD 2C 38.8 % LV Ejection Fraction 2C AL 39.0 % LA Diameter 3.2 cm LA Width 2.9 cm LA Height 5.9 cm RA Width 2.8 cm RA Height 4.8 cm Aorta at Sinotubular Diameter 3.5 cm IVC Diameter 1.4 cm M-MODE Aortic Annulus Diameter 3.2 cm LA Ao Ratio MM 0.9 MV E Point Septal Separation 0.5 cm DOPPLER AV Peak Velocity 78.0 cm/s LVOT Peak Velocity 54.0 cm/s AV Area Cont Eq vti 2.8 cm squared AV Area Cont Eq pk 2.8 cm squared MV Area PHT 5.8 cm squared Mitral E to A Ratio 0.7 MV E' Velocity 29.0 cm/s Mitral E to MV E' Ratio 4.2 Mitral E to LV E' Lateral Ratio 3.5 Mitral E to LV E' Septal Ratio 5.3 TV Peak E Velocity 51.0 cm/s PV Peak Velocity 78.0 cm/s RV Acceleration Time 0.1 s RV Ejection Time 0.3 s RV AcT/ET 0.3 FINDINGS Left Ventricle Technically limited quality echocardiogram because of poor ultrasonic windows. Left ventricle is normal in size. LV systolic function is borderline low with EF of 50%. Mild global hypokinesis is seen Right Ventricle RV is dilated. Right Atrium Normal in size Left Atrium Normal in size Mitral Valve Structurally normal mitral valve. Aortic Valve Aortic valve is thickened. No significant stenosis or regurgitation. Tricuspid Valve Mild tricuspid regurgitation. Insufficient TR jet to calculate RVSP Pulmonic Valve Not well visualized Pericardium Normal Aorta Normal in size IVC Appears to be normal CONCLUSIONS Technically limited quality echocardiogram because of poor ultrasonic windows LV systolic function is borderline low to normal with EF of 50% RV is mildly dilated Mild tricuspid regurgitation Compared to prior echocardiogram from 06/21/2021, no significant changes are seen Dominic Bangura MD (Electronically Signed) Final Date: 22 April 2022 13:46 S
--- NOTE | 2022-04-22 02:13 | PC.NURSE ---
Unable to update/verify med rec at this time. Patient does not have medications or list with him and does not know them.
[2022-04-22] MEDS: cefTRIAXone 1,000 MG in sodium chloride 0.9% (plus) 50 ML 100 MG IV (02:20)
[2022-04-22] MEDS: FUROsemide 10 mg/mL SDV 2mL 20 MG IVP (02:24)
[2022-04-22] MEDS: atorvastatin 40 mg Tablet PO ×2 (02:37→21:23)
[2022-04-22] MEDS: enoxaparin 40 mg/0.4 mL Syringe SUBCUT (02:37)
[2022-04-22] MEDS: remdesivir 200 MG in sodium chloride 0.9% (100 ml) 60 ML 100 MG IV (02:38)
[2022-04-22 02:44] LABS: Basophils % 0.2 %; Hematocrit 36.7 % (42.0-52.0); Hemoglobin 11.1 g/dL (11.7-16.6); Lymphocytes # 0.3 10^3/uL (0.8-4.8); Lymphocytes % 5.1 %; Mean Corpuscular HGB Conc 30.2 g/dL (30.0-36.0); Mean Corpuscular Hemoglobin 27.3 pg (28.0-34.0); Mean Corpuscular Volume 90.4 fl (80-94); Monocytes # 0.4 10^3/uL (0.2-0.9); Monocytes % 6.6 %; Neutrophils # 4.63 10^3/uL (1.8-7.7); Neutrophils % 87.2 %; Nucleated Red Blood Cells % 0 %; Platelet Count 108 10^3/cmm (130-400); Red Blood Count 4.06 10^6/uL (4.1-5.3); Red Cell Distribution Width 14.9 % (12.1-15.1); White Blood Count 5.3 10^3/uL (4.0-10.0)
--- NOTE | 2022-04-22 02:54 | ECG_ITS ---
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 Measurements Intervals [place] Rate: 83 P: 10 CO: 149 QRS: 60 QRSD: 105 T: -51 QT: 384 QTc: 454 Interpretive Statements SINUS RHYTHM WITH FREQUENT VENTRICULAR PREMATURE COMPLEXES LOW QRS VOLTAGE IN EXTREMITY LEADS [QRS DEFLECTION < 0.5 mV IN LIMB LEADS] POSSIBLE ANTERIOR MYOCARDIAL INFARCTION , OF INDETERMINATE AGE [30 ms Q WAVE IN V3/V4, OR R < 0.2 mV IN V4] MODERATE T-WAVE ABNORMALITY, CONSIDER INFERIOR ISCHEMIA [-0.1+ mV T-WAVE IN II/aVF] Compared to ECG 07/19/2021 08:29:01 Low QRS voltage now present T-wave abnormality now present Possible ischemia now present Myocardial infarct finding still present Electronically Signed On 04-22-2022 14:47:47 [employer] by Dominic Bangura M.D. [id number]
[2022-04-22 03:09] LABS: Anion Gap 20.9 (5-19); Blood Urea Nitrogen 22 mg/dL (8-23); Calcium 8.4 mg/dL (8.5-10.5); Carbon Dioxide 20 mmol/L (22-29); Chloride 103 mmol/L (98-107); Glucose 68 mg/dL (65-115); Magnesium 1.9 mg/dL (1.7-2.3); Osmolality Calculated 292 mOsm/kg (285-295); Potassium 3.9 mmol/L (3.5-5.1); Sodium 140 mmol/L (136-145); Troponin 5 2HR 27.26 ng/L (0-15)
[2022-04-22 03:15] LABS: Troponin 5 2HR Delta -3.74 ABS# (0-10)
[2022-04-22 03:20] LABS: NT Pro B Type Natriuretic Pept 1447 pg/mL (0-125); Thyroid Stimulating Hormone 1.48 uIU/mL (0.27-4.20)
[2022-04-22 03:21] LABS: Cortisol Random 18.87 ug/dL (2.47-19.5)
[2022-04-22] MEDS: azithromycin 500 MG in sodium chloride 0.9% 250 ML 250 MG IV (04:23)
[2022-04-22 04:26] LABS: Urine Appearance Clear (CLEAR); Urine Color Yellow (Yellow)
[2022-04-22 04:27] LABS: Add Urine Microscopic? YES; Bilirubin Urine Neg (Negative); Blood Urine 2+ (Negative); Glucose Urine UA Norm (Normal); Ketones Urine 1+ (Negative); Leukocyte Esterase Urine Negative (Negative); Nitrate Urine Negative (Negative); Protein Urine Neg (Negative); Specific Gravity, Urine 1.015 (1.005-1.030); Urobilinogen Urine Norm (Negative); pH Urine 5 (5-7)
[2022-04-22 04:28] LABS: Add Urine Culture? No; Amorphous Sediment Urine 2+ /hpf; Fine Granular Casts Urine 0-2 /lpf; Hyaline Casts Urine 0-4 /lpf; RBC Urine 15-25 /hpf (0-2); WBC Urine 0-4 /hpf (0-5)
[2022-04-22] MEDS: ipratropium-albuterol 3 mL Neb INHALATION ×4 (04:53→23:38)
--- NOTE | 2022-04-22 05:04 | ECG_ITS ---
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 Measurements Intervals [place] Rate: 90 P: -2 DC: 151 QRS: 38 QRSD: 98 T: -71 QT: 341 QTc: 418 Interpretive Statements SINUS RHYTHM WITH OCCASIONAL VENTRICULAR PREMATURE COMPLEXES MODERATE ST DEPRESSION [0.05+ mV ST DEPRESSION] ABNORMAL QRS-T ANGLE [QRS-T AXIS DIFFERENCE > 60] Compared to ECG 04/22/2022 02:54:42 ST (T wave) deviation now present Myocardial infarct finding no longer present T-wave abnormality no longer present Possible ischemia no longer present Electronically Signed On 04-22-2022 14:46:42 [employer] by Dominic Bangura M.D. [id number]
[2022-04-22 06:17] LABS: Troponin 5 6HR 25.45 ng/L (0-15)
[2022-04-22 06:19] LABS: Troponin 5 6HR Delta -5.55 ng/L (0-12)
[2022-04-22 06:52] LABS: Glucose Point of Care 99 mg/dL (70-110)
[2022-04-22] MEDS: budesonide 0.5 mg/2 mL Neb INHALATION (08:07)
[2022-04-22] MEDS: aspirin 81 mg EC Tablet PO (09:45)
[2022-04-22] MEDS: ferrous sulfate EC 325 mg Tablet PO (09:45)
[2022-04-22] MEDS: magnesium oxide 400 mg tablet PO ×2 (09:45→18:11)
[2022-04-22] MEDS: cholecalciferol (vitamin D3) 1,000 unit Tablet 1000 UNIT PO (09:45)
[2022-04-22] MEDS: acetaminophen 325 mg Tablet 650 MG PO (09:46)
[2022-04-22] MEDS: dexamethasone 10 mg/mL INJ 6 MG IVP (09:47)
[2022-04-22] MEDS: pantoprazole DR 40 mg Tablet PO (09:47)
[2022-04-22 11:34] LABS: Glucose Point of Care 141 mg/dL (70-110)
--- NOTE | 2022-04-22 14:12 | P.PN_ITS ---
Subjective Subjective: Patient is extremely hard of hearing, slightly tachypneic, afebrile, his labs and vitals have been reviewed. Medications: Medication Review Details: Generic Name Dose Route Start Last Admin Trade Name Rayray PRN Reason Stop Dose Admin Acetaminophen 650 mg 04/22/22 02:00 04/22/22 09:46 Acetaminophen 32 5 Mg Tablet PO 650 mg Q6H PRN Administration Mild/Mod Pain Or Temp >/= 101 Albuterol/Ipratrop ium 3 ml 04/22/22 04:00 04/22/22 11:00 Ipratropium-Albu terol 3 Ml Neb INHALATION 3 ml Q4H.RESPIRATORY S CH Administration Aspirin 81 mg 04/22/22 09:00 04/22/22 09:45 Aspirin 81 Mg Ec Tablet PO 81 mg DAILY TASHI Administration Atorvastatin Calci um 40 mg 04/22/22 02:00 04/22/22 02:37 Atorvastatin 40 Mg Tablet PO 40 mg BEDTIME TASHI Administration Budesonide 0.5 mg 04/22/22 08:00 04/22/22 08:07 Budesonide 0.5 M g/2 Ml Neb INHALATION 0.5 mg BID.RESPIRATORY S CH Administration Dexamethasone 6 mg 04/22/22 09:00 04/22/22 09:47 Dexamethasone 10 Mg/Ml Inj IVP 6 mg Q24H TASHI Administration Docusate Sodium 100 mg 04/22/22 09:00 04/22/22 09:46 Docusate Sodium 100 Mg Capsule PO Not Given BID TASHI Enoxaparin Sodium 40 mg 04/22/22 02:00 04/22/22 02:37 Enoxaparin 40 Mg /0.4 Ml Syringe SUBCUT 40 mg Q24H TASHI Administration Ferrous Sulfate 325 mg 04/22/22 09:00 04/22/22 09:45 Ferrous Sulfate Ec 325 Mg Tablet PO 325 mg DAILY TASHI Administration Ceftriaxone Sodium 1,000 mg/ 50 mls @ 100 mls/ hr 04/22/22 02:00 04/22/22 02:50 Sodium Chloride IV Infused Q24H TASHI Infusion Protocol Azithromycin 500 m g/ Sodium 250 mls @ 250 mls /hr 04/22/22 02:00 04/22/22 05:30 Chloride IV Infused Q24H TASHI Infusion Protocol Insulin Human Lisp ro 0 unit 04/22/22 08:00 04/22/22 11:47 Insulin Lispro 1 00 Unit/1 Ml SUBCUT Not Given TIDWM [facility] Protocol Magnesium Oxide 400 mg 04/22/22 09:00 04/22/22 09:45 Magnesium Oxide 400 Mg Tablet PO 400 mg BID TASHI Administration Pantoprazole Sodiu m 40 mg 04/22/22 09:00 04/22/22 09:[address] 40 Mg Tablet PO 40 mg DAILY TASHI Administration Vitamin D 1,000 unit 04/22/22 09:00 04/22/22 09:45 Cholecalciferol (Vitamin D3) 1,000 Unit Tablet PO 1,000 unit DAILY TASHI Administration Vitals/I&O/Wt Last Vital Signs Temp 97.2 F L 04/22/22 12:00 Pulse 62 04/22/22 12:00 Resp 18 04/22/22 12:00 BP 98/60 04/22/22 12:00 Pulse Ox 92 04/22/22 12:00 O2 Del Method 04/22/22 12:00 O2 Flow Rate 3 04/22/22 12:00 04/21/22 04/22/22 04/22/22 22:59 06:59 14:59 Intake Total 880 / 880 240 / 240 Output Total 600 / 600 Balance 280 / 280 240 / 240 Weight last 48 hrs Weight 64.637 kg Physical Exam Const: COMMON NORMALS: patient oriented x3 HENMT: COMMON NORMALS: normocephalic and atraumatic HEAD & SCALP: normocephalic and atraumatic Resp: COMMON NORMALS: clear to auscultation bilaterally EFFORT & INS PECTION: Yes symmetric chest movement AUSCULTATION: clear to auscultation bilaterally Cardio: COMMON NORMALS: regular rate, regular rhythm, S1 normal heart sound present, S2 normal heart sound present, No gallops present (Cardio), No murmurs present (Cardio), No rub (Cardio) and Peripheral pulses 2+ throughout RATE: regular rate RHYTHM: regular rhythm HEART SOUNDS: S1 normal heart sound present and S2 normal heart sound present PERIPHERAL PULSES: Peripheral pulses 2+ throughout GI: COMMON NORMALS: Normal to inspection, nondistended, normoactive bowel sounds present, Soft to palpation, non-tender, No hepatosplenomegaly present and no masses AUSCULTATION: Yes normoactive bowel sounds PALPATION: Yes Soft to palpation and Yes No hepatosplenomegaly present RECTAL EXAM: Yes deferred Extremity: COMMON NORMALS: no clubbing, cyanosis or edema and no pedal edema Neuro: COMMON NORMALS: patient oriented x3 Data 04/22/22 02:10 04/22/22 02:10 Micro: Microbiology 04/21/22 03:01 Bacterial Antigens - Final Urine,Voided 04/22/22 02:10 Blood Culture - Preliminary Blood SPECIMEN COLLECTED 04/22/22 02:08 Blood Culture - Preliminary Blood SPECIMEN COLLECTED A&P Assessment and plan (1) Acute respiratory failure with hypoxemia: (2) COVID-19: (3) CHF exacerbation: (4) Metastasis to lung: (5) CHF (congestive heart failure), NYHA class I: Qualifiers: Congestive heart failure type: diastolic Congestive heart failure chronicity: chronic Qualified Code(s): I50.32 - Chronic diastolic (congestive) heart failure (6) Ischemic cardiomyopathy: (7) PRIYA (obstructive sleep apnea): (8) Dyslipidemia: (9) Hypertension: (10) Type 2 diabetes mellitus: (11) Cancer: (12) Hypoxia: (13) Positive cardiac stress test: (14) Shock: Plan Acute hypoxic hypoxic respiratory failure -Secondary to COVID-19 pneumonia -Also fluiD overload, with elevated BNP, component of systolic CHF exacerbation -Recently had a positive stress test, but no active chest pain complaints but has been more short of breath -Also concern for secondary bacterial pneumonia Plan CTA chest,: No pulmonary embolism, left midlung large mass is present, measuring up to 5.7 cm, has increased in size Trace bilateral pleural effusion, no pneumothorax, -Troponin trend: Unremarkable -2D echo: Technically difficult study,LV systolic function is borderline low to normal with EF of 50%,?RV is mildly dilated ?Mild tricuspid regurgitation. Monitor ESR CRP D-dimer LDH ferritin Blood culture Sputum gram stain and culture -Currently on dexamethasone -Remdesivir -Empirically on ceftriaxone azithromycin -DuoNeb treatment -Budesonide -Incentive spirometer, flutter valve Systolic CHF exacerbation -Cardiac echo -Serial EKGs, troponins, telemetry monitoring History of CAD -Coronary artery disease status post CABG x4 in 2014, history of ischemic cardiomyopathy -Recent stress testing -1. Large sized predominantly fixed perfusion abnormality of moderate to severe ?severity of basal to apical inferior, basal to mid inferolateral, basal to mid ?inferoseptal, apical septal and apical lateral hutchinson. ?2. This is suggestive of old myocardial infarction in right coronary artery and ?circumflex artery territory with subtle vee-infarct ischemia. Attenuation ?artifact cannot be ruled out in abscence of prone imaging. ?3. The left ventricular ejection fraction is normal with a value of 60%.? There ?is possible hypokinesis of apical inferior wall. ?4. EKG portion of the study will be reported separately. -No chest pain complaints -Serial EKGs, serial troponins, telemetry monitoring -Continue aspirin, statin, Type 2 diabetes mellitus, diet controlled, low-dose sliding scale CODE STATUS: Full code DVT prophylaxis on: Lovenox Attestations Medical Necessity Statement*: Needs to be in hospital for management of COVID- pneumonia Coding Level of Care Code Acute Code for Chg Fwd Diagnoses Acute respiratory failure with hypoxemia J96.01 COVID-19 U07.1 CHF exacerbation I50.9 Metastasis to lung C78.00 CHF (congestive heart failure), NYHA class I I50.32 Congestive heart failure type: diastolic Congestive heart failure chronicity: chronic Ischemic cardiomyopathy I25.5 PRIYA (obstructive sleep apnea) G47.33 Dyslipidemia E78.5 Hypertension I10 Type 2 diabetes mellitus E11.9 Cancer C80.1 Hypoxia R09.02 Positive cardiac stress test R94.39 Shock R57.9
--- NOTE | 2022-04-22 14:14 | XR_ITS ---
WS: [id number] K[facility], AP view, 04/22/2022 Clinical Data: R/O Ileus Comparison: CT chest abdomen pelvis, 11/04/2021, KUB, 09/07/2018. Findings: No abnormal intraabdominal masses are seen. There are small calcifications to the left of the L1-L3 v ertebral bodies which may be within lymph nodes. There are vascular calcifications. There is contrast material in the right kidney with moderate dilatation of the pyelocalyceal system. The right ureter is dilated down to the bladder which is partly full. There is a large amount of air throughout the s mall bowel and colon. There are clips in the upper abdomen from surgery. There is degenerative change of the lumbar vertebral bodies.There are monitor leads over the abdominal wall. XR/XR KUB portable [id number] Impression: 1. Dilatation of the small bowel and colon most consistent with generalized ile us. 2. Moderate pyelocaliectasis the right kidney and dilatation of the right urete r consistent with distal ureteral obstruction.
--- NOTE | 2022-04-22 16:00 | PC.OT ---
OT EVALUATION ATTEMPTED. PATIENT SUPINE IN BED AND APPEARS SOB DESPITE NASAL CANNULA PLACED. BREVIG [place] AND APPEARS TO EITHER NOT HERE THERAPIST OR NOT WANT TO ANSWER. PATIENT DECLINES OT EVALUATION AT THIS TIME. AGREEABLE TO ATTEMPT TOMORROW.
[2022-04-22 16:29] LABS: Glucose Point of Care 159 mg/dL (70-110)
[2022-04-22] MEDS: insulin lispro 100 unit/1 mL SUBCUT (18:11)
[2022-04-22 21:33] LABS: Glucose Point of Care 167 mg/dL (70-110)
[2022-04-23] VITALS (10 sets, daily range): BP systolic 104–152; BP diastolic 67–83; PULSE 65–88; RESP 16–22; TEMP 35.9–36.6; O2SAT 90–95
[2022-04-23] MEDS: cefTRIAXone 1,000 MG in sodium chloride 0.9% (plus) 50 ML 100 MG IV (01:27)
[2022-04-23] MEDS: enoxaparin 40 mg/0.4 mL Syringe SUBCUT (01:28)
[2022-04-23] MEDS: remdesivir 100 MG in sodium chloride 0.9% (100 ml) 80 ML IV (01:58)
[2022-04-23] MEDS: azithromycin 500 MG in sodium chloride 0.9% 250 ML 250 MG IV (03:08)
[2022-04-23] MEDS: ipratropium-albuterol 3 mL Neb INHALATION ×2 (03:08→13:20)
[2022-04-23 05:54] LABS: Erythrocyte Sedimentation Rate 34 mm/hr (0-10)
[2022-04-23 05:57] LABS: Basophils % 0.1 %; Hematocrit 33.8 % (42.0-52.0); Hemoglobin 10.3 g/dL (11.7-16.6); Lymphocytes # 0.3 10^3/uL (0.8-4.8); Lymphocytes % 3.8 %; Mean Corpuscular HGB Conc 30.5 g/dL (30.0-36.0); Mean Corpuscular Hemoglobin 26.8 pg (28.0-34.0); Mean Platelet Volume 10.3 fL (7.4-10.4); Monocytes # 0.9 10^3/uL (0.2-0.9); Monocytes % 10.4 %; Neutrophils % 84.6 %; Nucleated Red Blood Cells % 0 %; Platelet Count 120 10^3/cmm (130-400); Red Blood Count 3.84 10^6/uL (4.1-5.3); Red Cell Distribution Width 15.1 % (12.1-15.1); White Blood Count 8.8 10^3/uL (4.0-10.0)
[2022-04-23 06:12] LABS: D Dimer 1.45 ug/mIFEU (0-0.59)
[2022-04-23 06:14] LABS: Anion Gap 18.3 (5-19); Blood Urea Nitrogen 29 mg/dL (8-23); C Reactive Protein 66.2 mg/L (0.0-4.9); Calcium 8.8 mg/dL (8.5-10.5); Carbon Dioxide 23 mmol/L (22-29); Chloride 105 mmol/L (98-107); Glucose 158 mg/dL (65-115); Lactate Dehydrogenase 378 U/L (135-225); Osmolality Calculated 303 mOsm/kg (285-295); Potassium 4.3 mmol/L (3.5-5.1); Sodium 142 mmol/L (136-145)
[2022-04-23 06:27] LABS: Ferritin 1841 ng/mL (30-400)
[2022-04-23 06:29] LABS: Glucose Point of Care 161 mg/dL (70-110)
--- NOTE | 2022-04-23 09:31 | P.PN_ITS ---
Subjective Subjective: Patient is extremely hard of hearing, was seen and examined this morning, overall doing ok. Medications: Medication Review Details: Generic Name Dose Route Start Last Admin Trade Name Freq PRN Reason Stop Dose Admin Acetaminophen 650 mg 04/22/22 02:00 04/22/22 09:46 Acetaminophen 32 5 Mg Tablet PO 650 mg Q6H PRN Administration Mild/Mod Pain Or Temp >/= 101 Albuterol/Ipratrop ium 3 ml 04/22/22 04:00 04/23/22 09:09 Ipratropium-Albu terol 3 Ml Neb INHALATION Not Given Q4H.RESPIRATORY S CH Aspirin 81 mg 04/22/22 09:00 04/22/22 09:45 Aspirin 81 Mg Ec Tablet PO 81 mg DAILY TASHI Administration Atorvastatin Calci um 40 mg 04/22/22 02:00 04/22/22 21:23 Atorvastatin 40 Mg Tablet PO 40 mg BEDTIME TASHI Administration Budesonide 0.5 mg 04/22/22 08:00 04/23/22 09:09 Budesonide 0.5 M g/2 Ml Neb INHALATION Not Given BID.RESPIRATORY S CH Dexamethasone 6 mg 04/22/22 09:00 04/22/22 09:47 Dexamethasone 10 Mg/Ml Inj IVP 6 mg Q24H TASHI Administration Docusate Sodium 100 mg 04/22/22 09:00 04/22/22 18:11 Docusate Sodium 100 Mg Capsule PO Not Given BID TASHI Enoxaparin Sodium 40 mg 04/22/22 02:00 04/23/22 01:28 Enoxaparin 40 Mg /0.4 Ml Syringe SUBCUT 40 mg Q24H TASHI Administration Ferrous Sulfate 325 mg 04/22/22 09:00 04/22/22 09:45 Ferrous Sulfate Ec 325 Mg Tablet PO 325 mg DAILY TASHI Administration Remdesivir 100 mg/ Sodium 100 mls @ 100 mls /hr 04/23/22 02:00 04/23/22 03:01 Chloride IV 04/26/22 02:59 Infused Q24H TASHI Infusion Ceftriaxone Sodium 1,000 mg/ 50 mls @ 100 mls/ hr 04/22/22 02:00 04/23/22 01:57 Sodium Chloride IV Infused Q24H TASHI Infusion Protocol Azithromycin 500 m g/ Sodium 250 mls @ 250 mls /hr 04/22/22 02:00 04/23/22 04:57 Chloride IV Infused Q24H [facility] Infusion Protocol Insulin Human Lisp ro 0 unit 04/22/22 08:00 04/22/22 18:11 Insulin Lispro 1 00 Unit/1 Ml SUBCUT 2 unit TIDWM [facility] Administration Protocol Magnesium Oxide 400 mg 04/22/22 09:00 04/22/22 18:11 Magnesium Oxide 400 Mg Tablet PO 400 mg BID TASHI Administration Pantoprazole Sodiu m 40 mg 04/22/22 09:00 04/22/22 09:[address] 40 Mg Tablet PO 40 mg DAILY TASHI Administration Vitamin D 1,000 unit 04/22/22 09:00 04/22/22 09:45 Cholecalciferol (Vitamin D3) 1,000 Unit Tablet PO 1,000 unit DAILY TASHI Administration Vitals/I&O/Wt Last Vital Signs Temp 96.7 F L 04/23/22 08:00 Pulse 76 04/23/22 09:09 Resp 18 04/23/22 09:09 BP 121/79 04/23/22 08:00 Pulse Ox 93 04/23/22 09:09 O2 Del Method 04/23/22 09:09 O2 Flow Rate 3 04/23/22 09:09 04/22/22 04/23/22 04/23/22 22:59 06:59 14:59 Intake Total 360 / 600 400 / 1000 Output Total 200 / 200 0 / 200 Balance 160 / 400 400 / 800 Weight last 48 hrs Weight 64.637 kg Physical Exam Const: COMMON NORMALS: patient oriented x3 HENMT: COMMON NORMALS: normocephalic and atraumatic HEAD & SCALP: normocephalic and atraumatic Resp: COMMON NORMALS: clear to auscultation bilaterally EFFORT & INSPECTION: Yes symmetric chest movement AUSCULTATION: clear to auscultation bilaterally Cardio: COMMON NORMALS: regular rate, regular rhythm, S1 normal heart sound present, S2 normal heart sound present, No gallops present (Cardio), No murmurs present (Cardio), No rub (Cardio) and Peripheral pulses 2+ throughout RATE: regular rate RHYTHM: regular rhythm HEART SOUNDS: S1 normal heart sound present and S2 normal heart sound present PERIPHERAL PULSES: Peripheral pulses 2+ throughout GI: COMMON NORMALS: Normal to inspection, nondistended, normoactive bowel sounds present, Soft to palpation, non-tender, No hepatosplenomegaly present and no masses AUSCULTATION: Yes normoactive bowel sounds PALPATION: Yes Soft to palpation and Yes No hepatosplenomegaly present RECTAL EXAM: Yes deferred Extremity: COMMON NORMALS: no clubbing, cyanosis or edema and no pedal edema Neuro: COMMON NORMALS: patient oriented x3 Data 04/23/22 05:41 04/23/22 05:41 Micro: Microbiology 04/22/22 02:10 Blood Culture - Preliminary Blood NEGATIVE TO DATE 04/22/22 02:08 Blood Culture - Preliminary Blood NEGATIVE TO DATE 04/21/22 03:01 Bacterial Antigens - Final Urine,Voided A&P Assessment and plan (1) Acute respiratory failure with hypoxemia: (2) COVID-19: (3) CHF exacerbation: (4) Metastasis to lung: (5) CHF (congestive heart failure), NYHA class I: Qualifiers: Congestive heart failure chronicity: chronic Congestive heart failure type: diastolic Qualified Code(s): I50.32 - Chronic diastolic (congestive) he art failure (6) Ischemic cardiomyopathy: (7) PRIYA (obstructive sleep apnea): (8) Dyslipidemia: (9) Hypertension: (10) Type 2 diabetes mellitus: (11) Cancer: (12) Hypoxia: (13) Positive cardiac stress test: (14) Shock: Plan Acute hypoxic hypoxic respiratory failure -Secondary to COVID-19 pneumonia -Also fluiD overload, with elevated BNP, component of systolic CHF exacerbation -Recently had a positive stress test, but no active chest pain complaints but has been more short of breath -Also concern for secondary bacterial pneumonia Plan CTA chest,: No pulmonary embolism, left midlung large mass is present, measuring up to 5.7 cm, has increased in size Trace bilateral pleural effusion, no pneumothorax, -Troponin trend: Unremarkable -2D echo: Technically difficult study,LV systolic function is borderline low to normal with EF of 50%,?RV is mildly dilated ?Mild tricuspid regurgitation. Monitor ESR CRP D-dimer LDH ferritin Blood culture Sputum gram stain and culture -Currently on dexamethasone -Remdesivir -Empirically on ceftriaxone azithromycin -DuoNeb treatment -Budesonide -Incentive spirometer, flutter valve Systolic CHF exacerbation -Cardiac echo -Serial EKGs, troponins, telemetry monitoring History of CAD -Coronary artery disease status post CABG x4 in 2014, history of ischemic c ardiomyopathy -Recent stress testing -1. Large sized predominantly fixed perfusion abnormality of moderate to severe ?severity of basal to apical inferior, basal to mid inferolateral, basal to mid ?inferoseptal, apical septal and apical lateral hutchinson. ?2. This is suggestive of old myocardial infarction in right coronary artery and ?circumflex artery territory with subtle vee-infarct ischemia. Attenuation ?artifact cannot be ruled out in abscence of prone imaging. ?3. The left ventricular ejection fraction is normal with a value of 60%.? There ?is possible hypokinesis of apical inferior wall. ?4. EKG portion of the study will be reported separately. -No chest pain complaints -Serial EKGs, serial troponins, telemetry monitoring -Continue aspirin, statin, Type 2 diabetes mellitus, diet controlled, low-dose sliding scale CODE STATUS: Full code DVT prophylaxis on: Lovenox Attestations Medical Necessity Statement*: needs to be in hospital for the management of covid pna Coding Level of Care Code Acute Code for Chg Fwd Exam Detailed Diagnoses Acute respiratory failure with hypoxemia J96.01 COVID-19 U07.1 CHF exacerbation I50.9 Metastasis to lung C78.00 CHF (congestive heart failure), NYHA class I I50.32 Congestive heart failure chronicity: chronic Congestive heart failure type: diastolic Ischemic cardiomyopathy I25.5 PRIYA (obstructive sleep apnea) G47.33 Dyslipidemia E78.5 Hypertension I10 Type 2 diabetes mellitus E11.9 Cancer C80.1 Hypoxia R09.02 Positive cardiac stress test R94.39 Shock R57.9
[2022-04-23] MEDS: insulin lispro 100 unit/1 mL SUBCUT (09:49)
[2022-04-23] MEDS: dexamethasone 10 mg/mL INJ 6 MG IVP (09:49)
[2022-04-23] MEDS: magnesium oxide 400 mg tablet PO ×2 (09:50→17:35)
[2022-04-23] MEDS: cholecalciferol (vitamin D3) 1,000 unit Tablet 1000 UNIT PO (09:50)
[2022-04-23] MEDS: aspirin 81 mg EC Tablet PO (09:50)
[2022-04-23] MEDS: pantoprazole DR 40 mg Tablet PO (09:50)
[2022-04-23] MEDS: ferrous sulfate EC 325 mg Tablet PO (09:50)
[2022-04-23] MEDS: docusate sodium 100 mg Capsule PO ×2 (09:50→17:35)
[2022-04-23] MEDS: benzonatate 100 mg Capsule PO (09:50)
[2022-04-23 12:15] LABS: Glucose Point of Care 169 mg/dL (70-110)
[2022-04-23 16:30] LABS: Glucose Point of Care 233 mg/dL (70-110)
[2022-04-23] MEDS: atorvastatin 40 mg Tablet PO (20:47)
[2022-04-23 21:57] LABS: Glucose Point of Care 224 mg/dL (70-110)
[2022-04-24] VITALS (20 sets, daily range): BP systolic 117–135; BP diastolic 68–82; PULSE 69–96; RESP 15–22; TEMP 36.2–36.4; O2SAT 3–98
[2022-04-24] MEDS: ipratropium-albuterol 3 mL Neb INHALATION ×7 (00:22→23:56)
[2022-04-24] MEDS: cefTRIAXone 1,000 MG in sodium chloride 0.9% (plus) 50 ML 100 MG IV (01:26)
[2022-04-24] MEDS: enoxaparin 40 mg/0.4 mL Syringe SUBCUT (01:26)
[2022-04-24] MEDS: remdesivir 100 MG in sodium chloride 0.9% (100 ml) 80 ML IV (01:56)
[2022-04-24] MEDS: azithromycin 500 MG in sodium chloride 0.9% 250 ML 250 MG IV (03:01)
[2022-04-24 04:51] LABS: Hematocrit 34.5 % (42.0-52.0); Hemoglobin 10.8 g/dL (11.7-16.6); Lymphocytes # 0.3 10^3/uL (0.8-4.8); Lymphocytes % 3.3 %; Mean Corpuscular HGB Conc 31.3 g/dL (30.0-36.0); Mean Corpuscular Hemoglobin 27.5 pg (28.0-34.0); Mean Corpuscular Volume 87.8 fl (80-94); Mean Platelet Volume 10.6 fL (7.4-10.4); Monocytes # 0.8 10^3/uL (0.2-0.9); Monocytes % 9.5 %; Neutrophils # 7.02 10^3/uL (1.8-7.7); Neutrophils % 85.7 %; Nucleated Red Blood Cells % 0 %; Platelet Count 127 10^3/cmm (130-400); Red Blood Count 3.93 10^6/uL (4.1-5.3); Red Cell Distribution Width 14.8 % (12.1-15.1); White Blood Count 8.2 10^3/uL (4.0-10.0)
[2022-04-24 05:24] LABS: Anion Gap 14.1 (5-19); Blood Urea Nitrogen 28 mg/dL (8-23); Carbon Dioxide 25 mmol/L (22-29); Chloride 106 mmol/L (98-107); Glucose 184 mg/dL (65-115); Osmolality Calculated 302 mOsm/kg (285-295); Potassium 4.1 mmol/L (3.5-5.1); Sodium 141 mmol/L (136-145)
[2022-04-24 06:34] LABS: Glucose Point of Care 155 mg/dL (70-110)
[2022-04-24] MEDS: budesonide 0.5 mg/2 mL Neb INHALATION ×2 (08:40→21:19)
[2022-04-24] MEDS: dexamethasone 10 mg/mL INJ 6 MG IVP (08:54)
[2022-04-24] MEDS: ferrous sulfate EC 325 mg Tablet PO (08:55)
[2022-04-24] MEDS: docusate sodium 100 mg Capsule PO ×2 (08:55→18:31)
[2022-04-24] MEDS: cholecalciferol (vitamin D3) 1,000 unit Tablet 1000 UNIT PO (08:55)
[2022-04-24] MEDS: pantoprazole DR 40 mg Tablet PO (08:55)
[2022-04-24] MEDS: aspirin 81 mg EC Tablet PO (08:55)
[2022-04-24] MEDS: benzonatate 100 mg Capsule PO (08:55)
[2022-04-24] MEDS: magnesium oxide 400 mg tablet PO ×2 (08:55→18:31)
[2022-04-24] MEDS: acetaminophen 325 mg Tablet 650 MG PO (09:53)
[2022-04-24] MEDS: ondansetron 2 mg/ML SDV 2 mL 4 MG IVP (10:02)
--- NOTE | 2022-04-24 10:12 | PC.SOCIAL ---
IMM update IMM updated with patient. Verbalized an understanding. Initialled, dated, timed, and placed in chart.
[2022-04-24 12:04] LABS: Glucose Point of Care 191 mg/dL (70-110)
--- NOTE | 2022-04-24 15:24 | PM.PN ---
Subjective Subjective: Patient is extremely hard of hearing, was seen and examined this morning, overall doing ok. Medications: Medication Review Details: Generic Name Dose Route Start Last Admin Trade Name Freq PRN Reason Stop Dose Admin Acetaminophen 650 mg 04/22/22 02:00 04/24/22 09:53 Acetaminophen 32 5 Mg Tablet PO 650 mg Q6H PRN Administration Mild/Mod Pain Or Temp >/= 101 Albuterol/Ipratrop ium 3 ml 04/22/22 04:00 04/24/22 11:19 Ipratropium-Albu terol 3 Ml Neb INHALATION 3 ml Q4H.RESPIRATORY S CH Administration Aspirin 81 mg 04/22/22 09:00 04/24/22 08:55 Aspirin 81 Mg Ec Tablet PO 81 mg DAILY TASHI Administration Atorvastatin Calci um 40 mg 04/22/22 02:00 04/23/22 20:47 Atorvastatin 40 Mg Tablet PO 40 mg BEDTIME TASHI Administration Benzonatate 100 mg 04/22/22 02:00 04/24/22 08:55 Benzonatate 100 Mg Capsule PO 100 mg TID PRN Administration cough Budesonide 0.5 mg 04/22/22 08:00 04/24/22 08:40 Budesonide 0.5 M g/2 Ml Neb INHALATION 0.5 mg BID.RESPIRATORY S CH Administration Dexamethasone 6 mg 04/22/22 09:00 04/24/22 08:54 Dexamethasone 10 Mg/Ml Inj IVP 6 mg Q24H T[facility]I Administration Docusate Sodium 100 mg 04/22/22 09:00 04/24/22 08:55 Docusate Sodium 100 Mg Capsule PO 100 mg BID TASHI Administration Enoxaparin Sodium 40 mg 04/22/22 02:00 04/24/22 01:26 Enoxaparin 40 Mg /0.4 Ml Syringe SUBCUT 40 mg Q24H T[facility]I Administration Ferrous Sulfate 325 mg 04/22/22 09:00 04/24/22 08:55 Ferrous Sulfate Ec 325 Mg Tablet PO 325 mg DAILY TASHI Administration Remdesivir 100 mg/ Sodium 100 mls @ 100 mls /hr 04/23/22 02:00 04/24/22 03:05 Chloride IV 04/26/22 02:59 Infused Q24H [facility] Infusion Ceftriaxone Sodium 1,000 mg/ 50 mls @ 100 mls/ hr 04/22/22 02:00 04/24/22 01:56 Sodium Chloride IV Infused Q24H [facility] Infusion Protocol Azithromycin 500 m g/ Sodium 250 mls @ 250 mls /hr 04/22/22 02:00 04/24/22 04:22 Chloride IV Infused Q24H [facility] Infusion Protocol Insulin Human Lisp ro 0 unit 04/22/22 08:00 04/24/22 12:36 Insulin Lispro 1 00 Unit/1 Ml SUBCUT Not Given TIDWM [facility] Protocol Magnesium Oxide 400 mg 04/22/22 09:00 04/24/22 08:55 Magnesium Oxide 400 Mg Tablet PO 400 mg BID TASHI Administration Ondansetron HCl 4 mg 04/22/22 02:00 04/24/22 10:02 Ondansetron 2 Mg /Ml Sdv 2 Ml IVP 4 mg Q8H PRN Administration vomiting, or N/V if npo Pantoprazole Sodiu m 40 mg 04/22/22 09:00 04/24/22 08:[address] 40 Mg Tablet PO 40 mg DAILY TASHI Administration Vitamin D 1,000 unit 04/22/22 09:00 04/24/22 08:55 Cholecalciferol (Vitamin D3) 1,000 Unit Tablet PO 1,000 unit DAILY TASHI Administration Vitals/I&O/Wt Last Vital Signs Temp 97.4 F L 04/24/22 12:00 Pulse 81 04/24/22 12:00 Resp 15 04/24/22 12:00 BP 124/71 04/24/22 12:00 Pulse Ox 94 04/24/22 12:00 O2 Del Method 04/24/22 12:00 O2 Flow Rate 3 04/24/22 12:00 FiO2 4 04/24/22 08:42 04/24/22 04/24/22 04/24/22 06:59 14:59 22:59 Intake Total 520 / 1260 120 / 120 Output Total 100 / 200 Balance 420 / 1060 120 / 120 Physical Exam Const: COMMON NORMALS: patient oriented x3 HENMT: COMMON NORMALS: normocephalic and atraumatic HEAD & SCALP: normocephalic and atraumatic Resp: COMMON NORMALS: clear to auscultation bilaterally EFFORT & INSPECTION: Yes symmetric chest movement AUSCULTATION: clear to auscultation bilaterally Cardio: COMMON NORMALS: regular rate, regular rhythm, S1 normal heart sound present, S2 normal heart sound present, No gallops present (Cardio), No murmurs present (Cardio), No rub (Cardio) and Peripheral pulses 2+ throughout RATE: regular rate RHYTHM: regular rhythm HEART SOUNDS: S1 normal heart sound present and S2 normal heart sound present PERIPHERAL PULSES: Peripheral pulses 2+ throughout GI: COMMON NORMALS: Normal to inspection, nondistended, normoactive bowel sounds present, Soft to palpation, non-tender, No hepatosplenomegaly present and no masses AUSCULTATION: Yes normoactive bowel sounds PALPATION: Yes Soft to palpation and Yes No hepatosplenomegaly present RECTAL EXAM: Yes deferred Extremity: COMMON NORMALS: no clubbing, cyanosis or edema and no pedal edema Neuro: COMMON NORMALS: patient oriented x3 Data 04/24/22 04:18 04/24/22 04:18 A&P Assessment and plan (1) Acute respiratory failure with hypoxemia: (2) COVID-19: (3) CHF exacerbation: (4) Metastasis to lung: (5) CHF (congestive heart failure), NYHA class I: Qualifiers: Congestive heart failure chronicity: chronic Congestive heart failure type: diastolic Qualified Code(s): I50.32 - Chronic diastolic (congestive) heart failure (6) Ischemic cardiomyopathy: (7) PRIYA (obstructive sleep apnea): (8) Dyslipidemia: (9) Hypertension: (10) Type 2 diabetes mellitus: (11) Cancer: (12) Hypoxia: (13) Positive cardiac stress test: (14) Shock: Plan Acute hypoxic hypoxic respiratory failure -Secondary to COVID-19 pneumonia -Also fluiD overload, with elevated BNP, component of systolic CHF exacerbation -Recently had a positive stress test, but no active chest pain complaints but has been more short of breath -Also concern for secondary bacterial pneumonia Plan CTA chest,: No pulmonary embolism, left midlung large mass is present, measuring up to 5.7 cm, has increased in size Trace bilateral pleural effusion, no pneumothorax, -Troponin trend: Unremarkable -2D echo: Technically difficult study,LV systolic function is borderline low to normal with EF of 50%,?RV is mildly dilated ?Mild tricuspid regurgitation. Monitor ESR CRP D-dimer LDH ferritin Blood culture Sputum gram stain and culture -Currently on dexamethasone -Remdesivir -Empirically on ceftriaxone azithromycin -DuoNeb treatment -Budesonide -Incentive spirometer, flutter valve Systolic CHF exacerbation -Cardiac echo -Serial EKGs, troponins, telemetry monitoring History of CAD -Coronary artery disease status post CABG x4 in 2015, history of ischemic cardiomyopathy -Recent stress testing -1. Large sized predominantly fixed perfusion abnormality of moderate to severe ?severity of basal to apical inferior, basal to mid inferolateral, basal to mid ?inferoseptal, apical septal and apical lateral hutchinson. ?2. This is suggestive of old myocardial infarction in right coronary artery and ?circumflex artery territory with subtle vee-infarct ischemia. Attenuation ?artifact cannot be ruled out in abscence of prone imaging. ?3. The left ventricular ejection fraction is normal with a value of 60%.? There ?is possible hypokinesis of apical inferior wall. ?4. EKG portion of the study will be reported separately. -No chest pain complaints -Serial EKGs, serial troponins, telemetry monitoring -Continue aspirin, statin, Type 2 diabetes mellitus, diet controlled, low-dose sliding scale CODE STATUS: Full code DVT prophylaxis on: Lovenox Attestations Medical Necessity Statement*: needs to be in hospital for management of PNA Coding Level of Care Code Acute Code for Chg Fwd Exam Detailed Diagnoses Acute respiratory failure with hypoxemia J96.01 COVID-19 U07.1 CHF exacerbation I50.9 Metastasis to lung C78.00 CHF (congestive heart failure), NYHA class I I50.32 Congestive heart failure chronicity: chronic Congestive heart failure type: diastolic Ischemic cardiomyopathy I25.5 PRIYA (obstructive sleep apnea) G47.33 Dyslipidemia E78.5 Hypertension I10 Type 2 diabetes mellitus E11.9 Cancer C80.1 Hypoxia R09.02 Positive cardiac stress test R94.39 Shock R57.9
[2022-04-24 16:55] LABS: Glucose Point of Care 196 mg/dL (70-110)
[2022-04-24] MEDS: atorvastatin 40 mg Tablet PO (20:43)
[2022-04-24 21:02] LABS: Glucose Point of Care 170 mg/dL (70-110)
[2022-04-25] VITALS (15 sets, daily range): BP systolic 132–169; BP diastolic 79–87; PULSE 85–101; RESP 16–22; TEMP 36.2–36.4; O2SAT 92–97
[2022-04-25] MEDS: enoxaparin 40 mg/0.4 mL Syringe SUBCUT (01:35)
[2022-04-25] MEDS: cefTRIAXone 1,000 MG in sodium chloride 0.9% (plus) 50 ML 100 MG IV (01:35)
[2022-04-25] MEDS: ondansetron 2 mg/ML SDV 2 mL 4 MG IVP (01:47)
[2022-04-25] MEDS: remdesivir 100 MG in sodium chloride 0.9% (100 ml) 80 ML IV (02:06)
[2022-04-25] MEDS: azithromycin 500 MG in sodium chloride 0.9% 250 ML 250 MG IV (03:58)
[2022-04-25] MEDS: ipratropium-albuterol 3 mL Neb INHALATION ×5 (04:22→23:16)
[2022-04-25 05:35] LABS: Basophils % 0.1 %; Hematocrit 40.3 % (42.0-52.0); Hemoglobin 12.1 g/dL (11.7-16.6); Lymphocytes # 0.5 10^3/uL (0.8-4.8); Lymphocytes % 3.8 %; Mean Corpuscular Hemoglobin 27.1 pg (28.0-34.0); Mean Corpuscular Volume 90.4 fl (80-94); Mean Platelet Volume 10.8 fL (7.4-10.4); Monocytes # 0.9 10^3/uL (0.2-0.9); Monocytes % 7.7 %; Neutrophils # 10.37 10^3/uL (1.8-7.7); Neutrophils % 87.2 %; Nucleated Red Blood Cells % 0 %; Platelet Count 136 10^3/cmm (130-400); Red Blood Count 4.46 10^6/uL (4.1-5.3); White Blood Count 11.9 10^3/uL (4.0-10.0)
[2022-04-25 06:00] LABS: Slide Review Slide Review Perform
[2022-04-25 06:03] LABS: Blood Urea Nitrogen 24 mg/dL (8-23); Calcium 8.3 mg/dL (8.5-10.5); Carbon Dioxide 23 mmol/L (22-29); Chloride 102 mmol/L (98-107); Glucose 100 mg/dL (65-115); Osmolality Calculated 294 mOsm/kg (285-295); Sodium 140 mmol/L (136-145)
[2022-04-25 06:05] LABS: Anion Gap 19.8 (5-19); Potassium 4.8 mmol/L (3.5-5.1)
[2022-04-25 06:40] LABS: Glucose Point of Care 100 mg/dL (70-110)
[2022-04-25] MEDS: budesonide 0.5 mg/2 mL Neb INHALATION ×2 (08:36→20:13)
[2022-04-25] MEDS: cholecalciferol (vitamin D3) 1,000 unit Tablet 1000 UNIT PO (10:19)
[2022-04-25] MEDS: ferrous sulfate EC 325 mg Tablet PO (10:19)
[2022-04-25] MEDS: docusate sodium 100 mg Capsule PO ×2 (10:19→17:06)
[2022-04-25] MEDS: aspirin 81 mg EC Tablet PO (10:19)
[2022-04-25] MEDS: magnesium oxide 400 mg tablet PO ×2 (10:20→17:06)
[2022-04-25] MEDS: pantoprazole DR 40 mg Tablet PO (10:20)
[2022-04-25] MEDS: dexamethasone 10 mg/mL INJ 6 MG IVP (10:33)
--- NOTE | 2022-04-25 12:36 | PM.PN ---
Subjective Subjective: Overall he is doing better, saturating well on minimal supplemental oxygen requirement, will complete the remdesivir course on . Medications: Medication Review Details: Generic Name Dose Route Start Last Admin Trade Name Rayray PRN Reason Stop Dose Admin Acetaminophen 650 mg 04/22/22 02:00 04/24/22 09:53 Acetaminophen 32 5 Mg Tablet PO 650 mg Q6H PRN Administration Mild/Mod Pain Or Temp >/= 101 Albuterol/Ipratrop ium 3 ml 04/22/22 04:00 04/25/22 11:14 Ipratropium-Albu terol 3 Ml Neb INHALATION Not Given Q4H.RESPIRATORY S CH Aspirin 81 mg 04/22/22 09:00 04/25/22 10:19 Aspirin 81 Mg Ec Tablet PO 81 mg DAILY TASHI Administration Atorvastatin Calci um 40 mg 04/22/22 02:00 04/24/22 20:43 Atorvastatin 40 Mg Tablet PO 40 mg BEDTIME TASHI Administration Benzonatate 100 mg 04/22/22 02:00 04/24/22 08:55 Benzonatate 100 Mg Capsule PO 100 mg TID PRN Administration cough Budesonide 0.5 mg 04/22/22 08:00 04/25/22 08:36 Budesonide 0.5 M g/2 Ml Neb INHALATION 0.5 mg BID.RESPIRATORY S CH Administration Dexamethasone 6 mg 04/22/22 09:00 04/25/22 10:33 Dexamethasone 10 Mg/Ml Inj IVP 6 mg Q24H TASHI Administration Docusate Sodium 100 mg 04/22/22 09:00 04/25/22 10:19 Docusate Sodium 100 Mg Capsule PO 100 mg BID TASHI Administration Enoxaparin Sodium 40 mg 04/22/22 02:00 04/25/22 01:35 Enoxaparin 40 Mg /0.4 Ml Syringe SUBCUT 40 mg Q24H TASHI Administration Ferrous Sulfate 325 mg 04/22/22 09:00 04/25/22 10:19 Ferrous Sulfate Ec 325 Mg Tablet PO 325 mg DAILY TASHI Administration Remdesivir 100 mg/ Sodium 100 mls @ 100 mls /hr 04/23/22 02:00 04/25/22 03:23 Chloride IV 04/26/22 02:59 Infused Q24H [facility] Infusion Ceftriaxone Sodium 1,000 mg/ 50 mls @ 100 mls/ hr 04/22/22 02:00 04/25/22 02:06 Sodium Chloride IV Infused Q24H [facility] Infusion Protocol Azithromycin 500 m g/ Sodium 250 mls @ 250 mls /hr 04/22/22 02:00 04/25/22 05:12 Chloride IV Infused Q24H [facility] Infusion Protocol Insulin Human Lisp ro 0 unit 04/22/22 08:00 04/25/22 10:19 Insulin Lispro 1 00 Unit/1 Ml SUBCUT Not Given TIDWM [facility] Protocol Magnesium Oxide 400 mg 04/22/22 09:00 04/25/22 10:20 Magnesium Oxide 400 Mg Tablet PO 400 mg BID TASHI Administration Ondansetron HCl 4 mg 04/22/22 02:00 04/25/22 01:47 Ondansetron 2 Mg /Ml Sdv 2 Ml IVP 4 mg Q8H PRN Administration vomiting, or N/V if npo Pantoprazole Sodiu m 40 mg 04/22/22 09:00 04/25/22 10:[address] 40 Mg Tablet PO 40 mg DAILY TASHI Administration Vitamin D 1,000 unit 04/22/22 09:00 04/25/22 10:19 Cholecalciferol (Vitamin D3) 1,000 Unit Tablet PO 1,000 unit DAILY TASHI Administration Vitals/I&O/Wt Last Vital Signs Temp 97.5 F L 04/25/22 12:00 Pulse 99 04/25/22 12:00 Resp 18 04/25/22 12:00 BP 132/87 04/25/22 12:00 Pulse Ox 93 04/25/22 12:00 O2 Del Method 04/25/22 12:00 O2 Flow Rate 4 04/25/22 08:36 FiO2 4 04/25/22 04:00 04/24/22 04/25/22 04/25/22 22:59 06:59 14:59 Intake Total 260 / 500 400 / 900 0 / 0 Output Total 450 / 550 400 / 950 Balance -190 / -50 0 / -50 0 / 0 Physical Exam Const: COMMON NORMALS: patient oriented x3 HENMT: COMMON NORMALS: normocephalic and atraumatic HEAD & SCALP: normocephalic and atraumatic Resp: COMMON NORMALS: clear to auscultation bilaterally EFFORT & INSPECTION: Yes symmetric chest movement AUSCULTATION: clear to auscultation bilaterally Cardio: COMMON NORMALS: regular rate, regular rhythm, S1 normal heart sound present, S2 normal heart sound present, No gallops present (Cardio), No murmurs present (Cardio), No rub (Cardio) and Peripheral pulses 2+ throughout RATE: regular rate RHYTHM: regular rhythm HEART SOUNDS: S1 normal heart sound present and S2 normal heart sound present PERIPHERAL PULSES: Peripheral pulses 2+ throughout GI: COMMON NORMALS: Normal to inspection, nondistended, normoactive bowel sounds present, Soft to palpation, non-tender, No hepatosplenomegaly present and no masses AUSCULTATION: Yes normoactive bowel sounds PALPATION: Yes Soft to palpation and Yes No hepatosplenomegaly present RECTAL EXAM: Yes deferred Extremity: COMMON NORMALS: no clubbing, cyanosis or edema and no pedal edema Neuro: COMMON NORMALS: patient oriented x3 Data 04/25/22 05:08 04/25/22 05:08 A&P Assessment and plan (1) Acute respiratory failure with hypoxemia: (2) COVID-19: (3) CHF exacerbation: (4) Metastasis to lung: (5) CHF (congestive heart failure), NYHA class I: Qualifiers: Congestive heart failure type: diastolic Congestive heart failure chronicity: chronic Qualified Code(s): I50.32 - Chronic diastolic (congestive) heart failure (6) Ischemic cardiomyopathy: (7) PRIYA (obstructive sleep apnea): (8) Dyslipidemia: (9) Hypertension: (10) Type 2 diabetes mellitus: (11) Cancer: (12) Hypoxia: (13) Positive cardiac stress test: (14) Shock: Plan Acute hypoxic hypoxic respiratory failure -Secondary to COVID-19 pneumonia -Also fluiD overload, with elevated BNP, component of systolic CHF exacerbation -Recently had a positive stress test, but no active chest pain complaints but has been more short of breath -Also concern for secondary bacterial pneumonia Plan CTA chest,: No pulmonary embolism, left midlung large mass is present, measuring up to 5.7 cm, has increased in size Trace bilateral pleural effusion, no pneumothorax, -Troponin trend: Unremarkable -2D echo: Technically difficult study,LV systolic function is borderline low to normal with EF of 50%,?RV is mildly dilated ?Mild tricuspid regurgitation. Monitor ESR CRP D-dimer LDH ferritin Blood culture Sputum gram stain and culture -Currently on dexamethasone -Remdesivir -Empirically on ceftriaxone azithromycin -DuoNeb treatment -Budesonide -Incentive spirometer, flutter valve Systolic CHF exacerbation -Cardiac echo: As above -telemetry monitoring History of CAD -Coronary artery disease status post CABG x4 in 2015, history of ischemic cardiomyopathy -Recent stress testing -1. Large sized predominantly fixed perfusion abnormality of moderate to severe ?severity of basal to apical inferior, basal to mid inferolateral, basal to mid ?inferoseptal, apical septal and apical lateral hutchinson. ?2. This is suggestive of old myocardial infarction in right coronary artery and ?circumflex artery territory with subtle vee-infarct ischemia. Attenuation ?artifact cannot be ruled out in abscence of prone imaging. ?3. The left ventricular ejection fraction is normal with a value of 60%.? There ?is possible hypokinesis of apical inferior wall. ?4. EKG portion of the study will be reported separately. -No chest pain complaints -Serial EKGs, serial troponins, telemetry monitoring -Continue aspirin, statin, Type 2 diabetes mellitus, diet controlled, low-dose sliding scale CODE STATUS: Full code DVT prophylaxis on: Lovenox Disposition: Given patient's significant underlying comorbid condition, on top of it current COVID infection, stays alone, has high fall risk, it will be prudent if he goes to SNF for short period. Family has agreed. Will attempt for SNF placement. Attestations Medical Necessity Statement*: Needs to be in hospital for management of COVID-pneumonia. Coding Level of Care Code Acute Code for [facility] Fwd Diagnoses Acute respiratory failure with hypoxemia J96.01 COVID-19 U07.1 CHF exacerbation I50.9 Metastasis to lung C78.00 CHF (congestive heart failure), NYHA class I I50.32 Congestive heart failure type: diastolic Congestive heart failure chronicity: chronic Ischemic cardiomyopathy I25.5 PRIYA (obstructive sleep apnea) G47.33 Dyslipidemia E78.5 Hypertension I10 Type 2 diabetes mellitus E11.9 Cancer C80.1 Hypoxia R09.02 Positive cardiac stress test R94.39 Shock R57.9
[2022-04-25] MEDS: atorvastatin 40 mg Tablet PO (22:05)
[2022-04-25] MEDS: acetaminophen 325 mg Tablet 650 MG PO (22:16)
[2022-04-25] MEDS: benzonatate 100 mg Capsule PO (22:16)
[2022-04-25 22:24] LABS: Glucose Point of Care 146 mg/dL (70-110)
[2022-04-26] VITALS (17 sets, daily range): BP systolic 111–131; BP diastolic 64–84; PULSE 88–106; RESP 16–23; TEMP 36.3–37; O2SAT 93–98
[2022-04-26] MEDS: enoxaparin 40 mg/0.4 mL Syringe SUBCUT (01:50)
[2022-04-26] MEDS: cefTRIAXone 1,000 MG in sodium chloride 0.9% (plus) 50 ML 100 MG IV (01:50)
[2022-04-26] MEDS: azithromycin 500 MG in sodium chloride 0.9% 250 ML 250 MG IV (02:44)
[2022-04-26] MEDS: ipratropium-albuterol 3 mL Neb INHALATION ×4 (03:01→21:20)
[2022-04-26] MEDS: remdesivir 100 MG in sodium chloride 0.9% (100 ml) 80 ML IV (04:06)
[2022-04-26 06:37] LABS: Glucose Point of Care 90 mg/dL (70-110)
[2022-04-26] MEDS: budesonide 0.5 mg/2 mL Neb INHALATION ×2 (08:32→21:21)
[2022-04-26] MEDS: aspirin 81 mg EC Tablet PO (09:21)
[2022-04-26] MEDS: ferrous sulfate EC 325 mg Tablet PO (09:22)
[2022-04-26] MEDS: dexamethasone 10 mg/mL INJ 6 MG IVP (09:22)
[2022-04-26] MEDS: docusate sodium 100 mg Capsule PO (09:22)
[2022-04-26] MEDS: cholecalciferol (vitamin D3) 1,000 unit Tablet 1000 UNIT PO (09:22)
[2022-04-26] MEDS: magnesium oxide 400 mg tablet PO ×2 (09:22→16:47)
[2022-04-26] MEDS: pantoprazole DR 40 mg Tablet PO (09:22)
--- NOTE | 2022-04-26 13:00 | PC.SOCIAL ---
Imm update IMM udated with patient. Copy of page 2 provided. Patient verbalized understanding. Copy in chart initialed, dated and timed.
[2022-04-26 13:40] LABS: Glucose Point of Care 86 mg/dL (70-110)
--- NOTE | 2022-04-26 16:14 | PM.PN ---
Subjective Subjective: Overall he is doing better, no acute events. Medications: Medication Review Details: Generic Name Dose Route Start Last Admin Trade Name Freq PRN Reason Stop Dose Admin Acetaminophen 650 mg 04/22/22 02:00 04/25/22 22:16 Acetaminophen 32 5 Mg Tablet PO 650 mg Q6H PRN Administration Mild/Mod Pain Or Temp >/= 101 Albuterol/Ipratrop ium 3 ml 04/22/22 04:00 04/26/22 15:53 Ipratropium-Albu terol 3 Ml Neb INHALATION Not Given Q4H.RESPIRATORY S CH Aspirin 81 mg 04/22/22 09:00 04/26/22 09:21 Aspirin 81 Mg Ec Tablet PO 81 mg DAILY TASHI Administration Atorvastatin Calci um 40 mg 04/22/22 02:00 04/25/22 22:05 Atorvastatin 40 Mg Tablet PO 40 mg BEDTIME TASHI Administration Benzonatate 100 mg 04/22/22 02:00 04/25/22 22:16 Benzonatate 100 Mg Capsule PO 100 mg TID PRN Administration cough Budesonide 0.5 mg 04/22/22 08:00 04/26/22 08:32 Budesonide 0.5 M g/2 Ml Neb INHALATION 0.5 mg BID.RESPIRATORY S CH Administration Dexamethasone 6 mg 04/22/22 09:00 04/26/22 09:22 Dexamethasone 10 Mg/Ml Inj IVP 6 mg Q24H T[facility]I Administration Docusate Sodium 100 mg 04/22/22 09:00 04/26/22 09:22 Docusate Sodium 100 Mg Capsule PO 100 mg BID TASHI Administration Enoxaparin Sodium 40 mg 04/22/22 02:00 04/26/22 01:50 Enoxaparin 40 Mg /0.4 Ml Syringe SUBCUT 40 mg Q24H [facility] Administration Ferrous Sulfate 325 mg 04/22/22 09:00 04/26/22 09:22 Ferrous Sulfate Ec 325 Mg Tablet PO 325 mg DAILY TASHI Administration Ceftriaxone Sodium 1,000 mg/ 50 mls @ 100 mls/ hr 04/22/22 02:00 04/26/22 02:20 Sodium Chloride IV Infused Q24H [facility] Infusion Protocol Azithromycin 500 m g/ Sodium 250 mls @ 250 mls /hr 04/22/22 02:00 04/26/22 03:44 Chloride IV Infused Q24H [facility] Infusion Protocol Magnesium Oxide 400 mg 04/22/22 09:00 04/26/22 09:22 Magnesium Oxide 400 Mg Tablet PO 400 mg BID TASHI Administration Ondansetron HCl 4 mg 04/22/22 02:00 04/25/22 01:47 Ondansetron 2 Mg /Ml Sdv 2 Ml IVP 4 mg Q8H PRN Administration vomiting, or N/V if npo Pantoprazole Sodiu m 40 mg 04/22/22 09:00 04/26/22 09:[address] 40 Mg Tablet PO 40 mg DAILY TASHI Administration Vitamin D 1,000 unit 04/22/22 09:00 04/26/22 09:22 Cholecalciferol (Vitamin D3) 1,000 Unit Tablet PO 1,000 unit DAILY TASHI Administration Vitals/I&O/Wt Last Vital Signs Temp 98.5 F 04/26/22 12:00 Pulse 102 H 04/26/22 15:52 Resp 22 H 04/26/22 15:52 BP 131/81 04/26/22 12:00 Pulse Ox 93 04/26/22 15:52 O2 Del Method 04/26/22 15:52 O2 Flow Rate 2 04/26/22 15:52 FiO2 4 04/25/22 04:00 04/26/22 04/26/22 04/26/22 06:59 14:59 22:59 Intake Total 700 / 940 120 / 120 Output Total 700 / 700 Balance 0 / 240 120 / 120 Physical Exam Const: COMMON NORMALS: patient oriented x3 HENMT: COMMON NORMALS: normocephalic and atraumatic HEAD & SCALP: normocephalic and atraumatic Resp: COMMON NORMALS: clear to auscultation bilaterally EFFORT & INSPECTION: Yes symmetric chest movement AUSCULTATION: clear to auscultation bilaterally Cardio: COMMON NORMALS: regular rate, regular rhythm, S1 normal heart sound present, S2 normal heart sound present, No gallops present (Cardio), No murmurs present (Cardio), No rub (Cardio) and Peripheral pulses 2+ throughout RATE: regular rate RHYTHM: regular rhythm HEART SOUNDS: S1 normal heart sound present and S2 normal heart sound present PERIPHERAL PULSES: Peripheral pulses 2+ throughout GI: COMMON NORMALS: Normal to inspection, nondistended, normoactive bowel sounds present, Soft to palpation, non-tender, No hepatosplenomegaly present and no masses AUSCULTATION: Yes normoactive bowel sounds PALPATION: Yes Soft to palpation and Yes No hepatosplenomegaly present RECTAL EXAM: Yes deferred Extremity: COMMON NORMALS: no clubbing, cyanosis or edema and no pedal edema Neuro: COMMON NORMALS: patient oriented x3 Data 04/25/22 05:08 04/25/22 05:08 A&P Assessment and plan (1) Acute respiratory failure with hypoxemia: (2) COVID-19: (3) CHF exacerbation: (4) Metastasis to lung: (5) CHF (congestive heart failure), NYHA class I: Qualifiers: Congestive heart failure chronicity: chronic Congestive heart failure type: diastolic Qualified Code(s): I50.32 - Chronic diastolic (congestive) heart failure (6) Ischemic cardiomyopathy: (7) PRIYA (obstructive sleep apnea): (8) Dyslipidemia: (9) Hypertension: (10) Type 2 diabetes mellitus: (11) Cancer: (12) Hypoxia: (13) Positive cardiac stress test: (14) Shock: Plan Acute hypoxic hypoxic respiratory failure -Secondary to COVID-19 pneumonia -Also fluiD overload, with elevated BNP, component of systolic CHF exacerbation -Recently had a positive stress test, but no active chest pain complaints but has been more short of breath -Also concern for secondary bacterial pneumonia Plan CTA chest,: No pulmonary embolism, left midlung large mass is present, measuring up to 5.7 cm, has increased in size Trace bilateral pleural effusion, no pneumothorax, -Troponin trend: Unremarkable -2D echo: Technically difficult study,LV systolic function is borderline low to normal with EF of 50%,?RV is mildly dilated ?Mild tricuspid regurgitation. Monitor ESR CRP D-dimer LDH ferritin Blood culture Sputum gram stain and culture -Currently on dexamethasone -Remdesivir -Empirically on ceftriaxone azithromycin -DuoNeb treatment -Budesonide -Incentive spirometer, flutter valve Systolic CHF exacerbation -Cardiac echo: As above -telemetry monitoring History of CAD -Coronary artery disease status post CABG x4 in 2014, history of ischemic cardiomyopathy -Recent stress testing -1. Large sized predominantly fixed perfusion abnormality of moderate to severe ?severity of basal to apical inferior, basal to mid inferolateral, basal to mid ?inferoseptal, apical septal and apical lateral hutchinson. ?2. This is suggestive of old myocardial infarction in right coronary artery and ?circumflex artery territory with subtle vee-infarct ischemia. Attenuation ?artifact cannot be ruled out in abscence of prone imaging. ?3. The left ventricular ejection fraction is normal with a value of 60%.? There ?is possible hypokinesis of apical inferior wall. ?4. EKG portion of the study will be reported separately. -No chest pain complaints -Serial EKGs, serial troponins, telemetry monitoring -Continue aspirin, statin, Type 2 diabetes mellitus, diet controlled, low-dose sliding scale CODE STATUS: Full code DVT prophylaxis on: Lovenox Disposition: Given patient's significant underlying comorbid condition, on top of it current COVID infection, stays alone, has high fall risk, it will be prudent if he goes to SNF for short period. Family has agreed. Will attempt for SNF placement. Attestations Medical Necessity Statement*: In hospital for COVID-pneumonia Coding Level of Care Code Acute Code for Chg Fwd Exam Detailed Diagnoses Acute respiratory failure with hypoxemia J96.01 COVID-19 U07.1 CHF exacerbation I50.9 Metastasis to lung C78.00 CHF (congestive heart failure), NYHA class I I50.32 Congestive heart failure chronicity: chronic Congestive heart failure type: diastolic Ischemic cardiomyopathy I25.5 PRIYA (obstructive sleep apnea) G47.33 Dyslipidemia E78.5 Hypertension I10 Type 2 diabetes mellitus E11.9 Cancer C80.1 Hypoxia R09.02 Positive cardiac stress test R94.39 Shock R57.9
[2022-04-26 16:37] LABS: Glucose Point of Care 101 mg/dL (70-110)
[2022-04-26 21:16] LABS: Glucose Point of Care 138 mg/dL (70-110)
[2022-04-26] MEDS: atorvastatin 40 mg Tablet PO (22:49)
[2022-04-27] VITALS (14 sets, daily range): BP systolic 110–127; BP diastolic 65–79; PULSE 88–110; RESP 16–20; TEMP 36.4–36.7; O2SAT 92–96
[2022-04-27] MEDS: cefTRIAXone 1,000 MG in sodium chloride 0.9% (plus) 50 ML 100 MG IV (02:25)
[2022-04-27] MEDS: enoxaparin 40 mg/0.4 mL Syringe SUBCUT (02:26)
[2022-04-27] MEDS: azithromycin 500 MG in sodium chloride 0.9% 250 ML 250 MG IV (02:58)
[2022-04-27] MEDS: ondansetron 2 mg/ML SDV 2 mL 4 MG IVP (06:20)
[2022-04-27] MEDS: acetaminophen 325 mg Tablet 650 MG PO ×2 (06:20→21:20)
[2022-04-27 06:47] LABS: Glucose Point of Care 79 mg/dL (70-110)
[2022-04-27] MEDS: budesonide 0.5 mg/2 mL Neb INHALATION ×2 (08:37→20:39)
[2022-04-27] MEDS: ipratropium-albuterol 3 mL Neb INHALATION ×4 (08:37→23:52)
[2022-04-27] MEDS: cholecalciferol (vitamin D3) 1,000 unit Tablet 1000 UNIT PO (09:02)
[2022-04-27] MEDS: magnesium oxide 400 mg tablet PO ×2 (09:02→17:38)
[2022-04-27] MEDS: ferrous sulfate EC 325 mg Tablet PO (09:02)
[2022-04-27] MEDS: docusate sodium 100 mg Capsule PO ×2 (09:02→17:38)
[2022-04-27] MEDS: pantoprazole DR 40 mg Tablet PO (09:03)
[2022-04-27] MEDS: aspirin 81 mg EC Tablet PO (09:03)
[2022-04-27] MEDS: dexamethasone 10 mg/mL INJ 6 MG IVP (09:03)
[2022-04-27 12:07] LABS: Glucose Point of Care 108 mg/dL (70-110)
--- NOTE | 2022-04-27 14:49 | PM.PN ---
Subjective Subjective: Completed remdesivir course. Currently on dexamethasone, and antibiotics empirically. Doing better. Medications: Medication Review Details: Generic Name Dose Route Start Last Admin Trade Name Freq PRN Reason Stop Dose Admin Acetaminophen 650 mg 04/22/22 02:00 04/27/22 06:20 Acetaminophen 32 5 Mg Tablet PO 650 mg Q6H PRN Administration Mild/Mod Pain Or Temp >/= 101 Albuterol/Ipratrop ium 3 ml 04/22/22 04:00 04/27/22 13:56 Ipratropium-Albu terol 3 Ml Neb INHALATION Not Given Q4H.RESPIRATORY S CH Aspirin 81 mg 04/22/22 09:00 04/27/22 09:03 Aspirin 81 Mg Ec Tablet PO 81 mg DAILY TASHI Administration Atorvastatin Calci um 40 mg 04/22/22 02:00 04/26/22 22:49 Atorvastatin 40 Mg Tablet PO 40 mg BEDTIME TASHI Administration Benzonatate 100 mg 04/22/22 02:00 04/25/22 22:16 Benzonatate 100 Mg Capsule PO 100 mg TID PRN Administration cough Budesonide 0.5 mg 04/22/22 08:00 04/27/22 08:37 Budesonide 0.5 M g/2 Ml Neb INHALATION 0.5 mg BID.RESPIRATORY S CH Administration Dexamethasone 6 mg 04/22/22 09:00 04/27/22 09:03 Dexamethasone 10 Mg/Ml Inj IVP 6 mg Q24H TASHI Administration Docusate Sodium 100 mg 04/22/22 09:00 04/27/22 09:02 Docusate Sodium 100 Mg Capsule PO 100 mg BID TASHI Administration Enoxaparin Sodium 40 mg 04/22/22 02:00 04/27/22 02:26 Enoxaparin 40 Mg /0.4 Ml Syringe SUBCUT 40 mg Q24H TASHI Administration Ferrous Sulfate 325 mg 04/22/22 09:00 04/27/22 09:02 Ferrous Sulfate Ec 325 Mg Tablet PO 325 mg DAILY TASHI Administration Ceftriaxone Sodium 1,000 mg/ 50 mls @ 100 mls/ hr 04/22/22 02:00 04/27/22 02:56 Sodium Chloride IV Infused Q24H TASHI Infusion Protocol Azithromycin 500 m g/ Sodium 250 mls @ 250 mls /hr 04/22/22 02:00 04/27/22 03:58 Chloride IV Infused Q24H TASHI Infusion Protocol Magnesium Oxide 400 mg 04/22/22 09:00 04/27/22 09:02 Magnesium Oxide 400 Mg Tablet PO 400 mg BID TASHI Administration Ondansetron HCl 4 mg 04/22/22 02:00 04/27/22 06:20 Ondansetron 2 Mg /Ml Sdv 2 Ml IVP 4 mg Q8H PRN Administration vomiting, or N/V if npo Pantoprazole Sodiu m 40 mg 04/22/22 09:00 04/27/22 09:[address] 40 Mg Tablet PO 40 mg DAILY TASHI Administration Vitamin D 1,000 unit 04/22/22 09:00 04/27/22 09:02 Cholecalciferol (Vitamin D3) 1,000 Unit Tablet PO 1,000 unit DAILY TASHI Administration Vitals/I&O/Wt Last Vital Signs Temp 97.7 F 04/27/22 12:00 Pulse 97 04/27/22 12:00 Resp 16 04/27/22 12:00 BP 110/75 04/27/22 12:00 Pulse Ox 94 04/27/22 12:00 O2 Del Method 04/27/22 12:00 O2 Flow Rate 3 04/27/22 08:00 FiO2 4 04/25/22 04:00 04/26/22 04/27/22 04/27/22 22:59 06:59 14:59 Intake Total 360 / 480 300 / 780 240 / 240 Output Total 200 / 200 250 / 450 Balance 160 / 280 50 / 330 240 / 240 Physical Exam Const: COMMON NORMALS: patient oriented x3 HENMT: COMMON NORMALS: normocephalic and atraumatic HEAD & SCALP: normocephalic and atraumatic Resp: COMMON NORMALS: clear to auscultation bilaterally EFFORT & INSPECTION: Yes symmetric chest movement AUSCULTATION: clear to auscultation bilaterally Cardio: COMMON NORMALS: regular rate, regular rhythm, S1 normal heart sound present, S2 normal heart sound present, No gallops present (Cardio), No murmurs present (Cardio), No rub (Cardio) and Peripheral pulses 2+ throughout RATE: regular rate RHYTHM: regular rhythm HEART SOUNDS: S1 normal heart sound present and S2 normal heart sound present PERIPHERAL PULSES: Peripheral pulses 2+ throughout GI: COMMON NORMALS: Normal to inspection, nondistended, normoactive bowel sounds present, Soft to palpation, non-tender, No hepatosplenomegaly present and no masses AUSCULTATION: Yes normoactive bowel sounds PALPATION: Yes Soft to palpation and Yes No hepatosplenomegaly present RECTAL EXAM: Yes deferred Extremity: COMMON NORMALS: no clubbing, cyanosis or edema and no pedal edema Neuro: COMMON NORMALS: patient oriented x3 Data 04/25/22 05:08 04/25/22 05:08 Micro: Microbiology 04/22/22 02:10 Blood Culture - Final Blood NO GROWTH AFTER 5 DAYS 04/22/22 02:08 Blood Culture - Final Blood NO GROWTH AFTER 5 DAYS A&P Assessment and plan (1) Acute respiratory failure with hypoxemia: (2) COVID-19: (3) CHF exacerbation: (4) Metastasis to lung: (5) CHF (congestive heart failure), NYHA class I: Qualifiers: Congestive heart failure type: diastolic Congestive heart failure chronicity: chronic Qualified Code(s): I50.32 - Chronic diastolic (congestive) heart failure (6) Ischemic cardiomyopathy: (7) PRIYA (obstructive sleep apnea): (8) Dyslipidemia: (9) Hypertension: (10) Type 2 diabetes mellitus: (11) Cancer: (12) Hypoxia: (13) Positive cardiac stress test: (14) Shock: Plan Acute hypoxic hypoxic respiratory failure -Secondary to COVID-19 pneumonia -Also fluiD overload, with elevated BNP, component of systolic CHF exacerbation -Recently had a positive stress test, but no active chest pain complaints but has been more short of breath -Also concern for secondary bacterial pneumonia Plan CTA chest,: No pulmonary embolism, left midlung large mass is present, measuring up to 5.7 cm, has increased in size Trace bilateral pleural effusion, no pneumothorax, -Troponin trend: Unremarkable -2D echo: Technically difficult study,LV systolic function is borderline low to normal with EF of 50%,?RV is mildly dilated ?Mild tricuspid regurgitation. Monitor ESR CRP D-dimer LDH ferritin Blood culture Sputum gram stain and culture -Currently on dexamethasone -Remdesivir -Empirically on ceftriaxone azithromycin -DuoNeb treatment -Budesonide -Incentive spirometer, flutter valve Systolic CHF exacerbation -Cardiac echo: As above -telemetry monitoring History of CAD -Coronary artery disease status post CABG x4 in 2014, history of ischemic cardiomyopathy -Recent stress testing -1. Large sized predominantly fixed perfusion abnormality of moderate to severe ?severity of basal to apical inferior, basal to mid inferolateral, basal to mid ?inferoseptal, apical septal and apical lateral hutchinson. ?2. This is suggestive of old myocardial infarction in right coronary artery and ?circumflex artery territory with subtle vee-infarct ischemia. Attenuation ?artifact cannot be ruled out in abscence of prone imaging. ?3. The left ventricular ejection fraction is normal with a value of 60%.? There ?is possible hypokinesis of apical inferior wall. ?4. EKG portion of the study will be reported separately. -No chest pain complaints -Serial EKGs, serial troponins, telemetry monitoring -Continue aspirin, statin, Type 2 diabetes mellitus, diet controlled, low-dose sliding scale CODE STATUS: Full code DVT prophylaxis on: Lovenox Disposition: Given patient's significant underlying comorbid condition, on top of it current COVID infection, stays alone, has high fall risk, it will be prudent if he goes to SNF for short period. Family has agreed. Will attempt for SNF placement. Attestations Medical Necessity Statement*: Awaiting retirement placement. Coding Level of Care Code Acute Code for [facility] Fwd Diagnoses Acute respiratory failure with hypoxemia J96.01 COVID-19 U07.1 CHF exacerbation I50.9 Metastasis to lung C78.00 CHF (congestive heart failure), NYHA class I I50.32 Congestive heart failure type: diastolic Congestive heart failure chronicity: chronic Ischemic cardiomyopathy I25.5 PRIYA (obstructive sleep apnea) G47.33 Dyslipidemia E78.5 Hypertension I10 Type 2 diabetes mellitus E11.9 Cancer C80.1 Hypoxia R09.02 Positive cardiac stress test R94.39 Shock R57.9
[2022-04-27 17:04] LABS: Glucose Point of Care 112 mg/dL (70-110)
[2022-04-27 21:05] LABS: Glucose Point of Care 145 mg/dL (70-110)
[2022-04-27] MEDS: atorvastatin 40 mg Tablet PO (21:16)
[2022-04-27] MEDS: benzonatate 100 mg Capsule PO (21:20)
[2022-04-28] VITALS (15 sets, daily range): BP systolic 106–119; BP diastolic 69–77; PULSE 79–104; RESP 16–18; TEMP 36.6–36.9; O2SAT 90–97
[2022-04-28] MEDS: enoxaparin 40 mg/0.4 mL Syringe SUBCUT (02:24)
[2022-04-28] MEDS: cefTRIAXone 1,000 MG in sodium chloride 0.9% (plus) 50 ML 100 MG IV (02:24)
[2022-04-28] MEDS: azithromycin 500 MG in sodium chloride 0.9% 250 ML 250 MG IV (04:01)
[2022-04-28] MEDS: ipratropium-albuterol 3 mL Neb INHALATION ×3 (04:12→11:13)
[2022-04-28 05:50] LABS: Basophils % 0.1 %; Eosinophils % 0.1 %; Hematocrit 36.1 % (42.0-52.0); Lymphocytes # 0.5 10^3/uL (0.8-4.8); Lymphocytes % 2.8 %; Mean Corpuscular HGB Conc 30.5 g/dL (30.0-36.0); Mean Corpuscular Hemoglobin 27.2 pg (28.0-34.0); Mean Corpuscular Volume 89.1 fl (80-94); Monocytes # 1.4 10^3/uL (0.2-0.9); Monocytes % 8.7 %; Neutrophils % 87.4 %; Nucleated Red Blood Cells % 0 %; Platelet Count 148 10^3/cmm (130-400); Red Blood Count 4.05 10^6/uL (4.1-5.3); White Blood Count 15.9 10^3/uL (4.0-10.0)
[2022-04-28 06:07] LABS: Blood Urea Nitrogen 27 mg/dL (8-23); Calcium 8.3 mg/dL (8.5-10.5); Carbon Dioxide 28 mmol/L (22-29); Chloride 98 mmol/L (98-107); Glucose 80 mg/dL (65-115); Osmolality Calculated 284 mOsm/kg (285-295); Sodium 135 mmol/L (136-145)
[2022-04-28 06:11] LABS: Anion Gap 13.4 (5-19); Potassium 4.4 mmol/L (3.5-5.1)
[2022-04-28 06:48] LABS: Glucose Point of Care 70 mg/dL (70-110)
[2022-04-28] MEDS: budesonide 0.5 mg/2 mL Neb INHALATION ×2 (08:12→20:30)
[2022-04-28] MEDS: ferrous sulfate EC 325 mg Tablet PO (08:45)
[2022-04-28] MEDS: cholecalciferol (vitamin D3) 1,000 unit Tablet 1000 UNIT PO (08:46)
[2022-04-28] MEDS: docusate sodium 100 mg Capsule PO ×2 (08:46→17:40)
[2022-04-28] MEDS: aspirin 81 mg EC Tablet PO (08:46)
[2022-04-28] MEDS: magnesium oxide 400 mg tablet PO ×2 (08:46→17:40)
[2022-04-28] MEDS: pantoprazole DR 40 mg Tablet PO (08:46)
[2022-04-28] MEDS: dexamethasone 10 mg/mL INJ 6 MG IVP (09:13)
[2022-04-28 12:03] LABS: Glucose Point of Care 130 mg/dL (70-110)
[2022-04-28] MEDS: FUROsemide 40 mg Tablet PO (14:34)
[2022-04-28 14:50] LABS: Vitamin B12 689 pg/mL (232-1245)
[2022-04-28] MEDS: ipratropium 0.5 mg/2.5 mL Neb INHALATION ×2 (15:47→20:31)
[2022-04-28] MEDS: albuterol 2.5 mg/3 mL Neb INHALATION ×2 (15:47→20:30)
--- NOTE | 2022-04-28 16:28 | PC.SOCIAL ---
IMM Updated Updated pt on IMM. No questions voiced. Provided pt a copy. Initialed, dated, & timed copy in chart.
[2022-04-28 16:41] LABS: Glucose Point of Care 146 mg/dL (70-110)
[2022-04-28 16:47] LABS: Folate Level 2.3 ng/mL (4.5-32.2)
--- NOTE | 2022-04-28 17:57 | PC.ADMIT ---
[email or web address] Admission Note: The patient,Gulshan Braga,72 y/o, was given written information regarding hospital policies, unit procedures and contact persons. Patient's smoking status: former smoker. Vital Signs - 8 hr 04/28/22 11:14 04/28/22 12:00 04/28/22 16:00 Temperature 98.5 F 98 F Pulse Rate 98 87 97 Respiratory Rate 18 18 18 Blood Pressure 108/72 111/73 Pulse Oximetry 92 93 92 Oxygen Delivery Method Nasal Cannula Nasal Cannula Nasal Cannula Oxygen Flow Rate 3 Fraction of Inspired Oxygen 04/28/22 15:48 04/28/22 11:20 04/28/22 15:54 Temperature Pulse Rate 87 103 H 89 Respiratory Rate 17 Blood Pressure Pulse Oximetry 93 Oxygen Delivery Method Nasal Cannula Oxygen Flow Rate Fraction of Inspired Oxygen 3
[2022-04-28] MEDS: atorvastatin 40 mg Tablet PO (20:23)
[2022-04-28 20:32] LABS: Glucose Point of Care 155 mg/dL (70-110)
--- NOTE | 2022-04-28 20:55 | P.PN_ITS ---
Subjective Subjective: Hospital course, labs appreciated. On examination patient lying comfortably in bed, sleeping, wakes up to verbal stimulus. Patient is tired and weak appearing. On 3 L oxygen supplementation. Denies any new complaints. Denies any chest pain or difficulty in breathing, nausea or vomiting. He states he lives by himself with daughter living around 300 feet away. On discussing the possible safe discharge planning he states he thinks it would be appropriate for him to go to a skilled nursing to get stronger. We discussed that he has not been working with physical therapy for now and is important for him to show capability of improvement with physical therapy evaluation before being referred to SNF. He verbalized understanding and is agreeable to work with physical therapy going forward. Vitals/I&O/Wt Last Vital Signs Temp 98.1 F 04/28/22 20:00 Pulse 79 04/28/22 20:32 Resp 18 04/28/22 20:32 BP 106/70 04/28/22 20:00 Pulse Ox 93 04/28/22 20:32 O2 Del Method 04/28/22 20:32 O2 Flow Rate 3 04/28/22 20:32 FiO2 3 04/28/22 15:48 04/28/22 04/28/22 04/28/22 06:59 14:59 22:59 Intake Total 300 / 660 480 / 480 240 / 720 Output Total 350 / 850 900 / 900 Balance -50 / -190 480 / 480 -660 / -180 Physical Exam Narrative: Currently sitting up to the side of bed, complaining shortness of breath Const: COMMON NORMALS: no acute distress and patient oriented x3 HENMT: COMMON NORMALS: normocephalic and atraumatic HEAD & SCALP: normocephalic and atraumatic Eye: COMMON NORMALS: Equal, round and reactive pupils present and EOMs intact bilaterally PUPIL: Yes Equal, round and reactive pupils present Neck/C-Spine: COMMON NORMALS: no JVD Lymph: LYMPHATIC: no lymphadenopathy noted Chest: COMMONS NORMALS: normal inspection of the chest OTHER: Left chest port in place left chest port in place Resp: COMMON NORMALS: normal respiratory effort, No retractions, No use of accessory muscles and clear to auscultation bilaterally EFFORT & INSPECTION: Yes symmetric chest movement AUSCULTATION: clear to auscultation bilaterally, crackles and wheezes Cardio: COMMON NORMALS: no JVD, regular rate, regular rhythm, S1 normal heart sound present, S2 normal heart sound present, No gallops present (Cardio), No murmurs present (Cardio), No rub (Cardio) and Peripheral pulses 2+ throughout RATE: regular rate RHYTHM: regular rhythm HEART SOUNDS: S1 normal heart sound present and S2 normal heart sound present PERIPHERAL PULSES: Peripheral pulses 2+ throughout GI: COMMON NORMALS: Normal to inspection, nondistended, normoactive bowel sounds present, Soft to palpation, non-tender, No hepatosplenomegaly present and no masses AUSCULTATION: Yes normoactive bowel sounds PALPATION: Yes Soft to palpation, No Tenderness to palpation present (GI), No Guarding due to palpation present (GI), No Rigid due to palpation and Yes No hepatosplenomegaly present RECTAL EXAM: Yes deferred Extremity: COMMON NORMALS: no clubbing, cyanosis or edema, no calf tenderness and no pedal edema Neuro: COMMON NORMALS: patient oriented x3, CN's II-XII intact bilaterally and moves all extremities Psych: COMMON NORMALS: mental status grossly normal Data 04/28/22 05:12 04/28/22 05:12 A&P Assessment and plan (1) Acute respiratory failure with hypoxemia: (2) COVID-19: (3) CHF exacerbation: (4) Metastasis to lung: (5) Ischemic cardiomyopathy: (6) PRIYA (obstructive sleep apnea): (7) Hypertension: (8) Type 2 diabetes mellitus: (9) Positive cardiac stress test: (10) Shock: Resolved. 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 Resolving. Hypoxia secondary to COVID-19 pneumonia: Mild Oxygen supplementation keeping saturation over 88%. Dexamethasone 6 mg daily to finish a 10-day course. Has finished her treatment course with remdesivir. DuoNeb every 6 hour, budesonide twice daily Pulmonary toilet with incentive spirometry flutter valve. We will monitor inflammatory markers including CRP, every 48 hours. Sputum culture pending, urine Legionella, bacterial antigen negative. Blood cultures so far negative. Continue with IV ceftriaxone to finish a 5-day course for possible community- acquired pneumonia. Stop azithromycin. Given hypoxia will try to keep patient as negative as possible. Echocardiogram showed an EF of 50% with mild RV dilatation and mild TR. CT done showed no pulmonary embolism. Hold off on any further Lasix or IV fluid for now. Strict input output charting, daily weights. History of CAD: Post CABG 2014. History of ischemic cardiomyopathy. No active chest pain. Continue aspirin, statin. Continue to monitor. Type 2 diabetes mellitus, diet controlled, low-dose sliding scale CODE STATUS: Full code DVT prophylaxis on: Lovenox Discharge planning: Patient states he lives by himself with daughter on 300 feet away. He thinks that he reported for him to go to SNF to get stronger. Patient has not been working with physical therapy for now. He is agreeable now. We will ask physical therapy to reassess and decide accordingly. For now plan for discharge to SNF. Case management alerted. Attestations Medical Necessity Statement*: Requires further hospitalization for management of hypoxia in setting of COVID-19, metastasis to lungs while safe discharge planning is sought given severe physical deconditioning. Time Spent in Patient Care: Greater than 35 minutes Coding Level of Care Code Acute Code for g Fwd Diagnoses Acute respiratory failure with hypoxemia J96.01 COVID-19 U07.1 CHF exacerbation I50.9 Metastasis to lung C78.00 Ischemic cardiomyopathy I25.5 PRIYA (obstructive sleep apnea) G47.33 Hypertension I10 Type 2 diabetes mellitus E11.9 Positive cardiac stress test R94.39 Shock R57.9 Malignant neoplasm of sigmoid colon C18.7 Physical deconditioning R53.81
[2022-04-29] VITALS (13 sets, daily range): BP systolic 108–131; BP diastolic 70–86; PULSE 76–106; RESP 16–24; TEMP 36–37; O2SAT 92–96
[2022-04-29] MEDS: ipratropium 0.5 mg/2.5 mL Neb INHALATION ×5 (00:16→21:43)
[2022-04-29] MEDS: albuterol 2.5 mg/3 mL Neb INHALATION ×6 (00:16→21:40)
[2022-04-29] MEDS: cefTRIAXone 1,000 MG in sodium chloride 0.9% (plus) 50 ML 100 MG IV (02:55)
[2022-04-29] MEDS: enoxaparin 40 mg/0.4 mL Syringe SUBCUT (02:55)
[2022-04-29 05:53] LABS: Basophils % 0.1 %; Eosinophils % 0.2 %; Hemoglobin 11.1 g/dL (11.7-16.6); Lymphocytes # 0.4 10^3/uL (0.8-4.8); Lymphocytes % 3.1 %; Mean Corpuscular HGB Conc 31.7 g/dL (30.0-36.0); Mean Corpuscular Hemoglobin 27.5 pg (28.0-34.0); Mean Corpuscular Volume 86.8 fl (80-94); Mean Platelet Volume 13.4 fL (7.4-10.4); Monocytes # 1.2 10^3/uL (0.2-0.9); Monocytes % 8.3 %; Neutrophils # 12.48 10^3/uL (1.8-7.7); Neutrophils % 87.3 %; Nucleated Red Blood Cells % 0 %; Platelet Count 137 10^3/cmm (130-400); Red Blood Count 4.03 10^6/uL (4.1-5.3); Red Cell Distribution Width 15.3 % (12.1-15.1); White Blood Count 14.3 10^3/uL (4.0-10.0)
[2022-04-29 06:34] LABS: Glucose Point of Care 78 mg/dL (70-110)
[2022-04-29 06:57] LABS: Alanine Aminotransferase 18 U/L (0-41); Alkaline Phosphatase 291 U/L (40-130); Anion Gap 12.1 (5-19); Aspartate Amino Transferase 34 U/L (0-40); Blood Urea Nitrogen 27 mg/dL (8-23); C Reactive Protein 155.2 mg/L (0.0-4.9); Calcium 8.5 mg/dL (8.5-10.5); Carbon Dioxide 30 mmol/L (22-29); Chloride 99 mmol/L (98-107); Globulin 3.8 g/dL (1.3-4.6); Glucose 83 mg/dL (65-115); Osmolality Calculated 288 mOsm/kg (285-295); Potassium 4.1 mmol/L (3.5-5.1); Sodium 137 mmol/L (136-145); Total Bilirubin 0.4 mg/dL (0.15-1.2); Total Protein 6.8 g/dL (6.6-8.7)
[2022-04-29] MEDS: multivitamin therapeutic Tablet 1 TAB PO (07:55)
[2022-04-29] MEDS: cyanocobalamin 1,000 mcg Tablet 500 MCG PO (07:55)
[2022-04-29] MEDS: cholecalciferol (vitamin D3) 1,000 unit Tablet 1000 UNIT PO (07:56)
[2022-04-29] MEDS: folic acid 1 mg Tablet PO ×2 (07:56→16:48)
[2022-04-29] MEDS: ferrous sulfate EC 325 mg Tablet PO (07:56)
[2022-04-29] MEDS: docusate sodium 100 mg Capsule PO ×2 (07:56→16:48)
[2022-04-29] MEDS: dexamethasone 10 mg/mL INJ 6 MG IVP (07:56)
[2022-04-29] MEDS: pantoprazole DR 40 mg Tablet PO (07:56)
[2022-04-29] MEDS: magnesium oxide 400 mg tablet PO ×2 (07:56→16:48)
[2022-04-29] MEDS: aspirin 81 mg EC Tablet PO (07:57)
[2022-04-29] MEDS: budesonide 0.5 mg/2 mL Neb INHALATION ×2 (08:56→21:41)
[2022-04-29 12:16] LABS: Glucose Point of Care 121 mg/dL (70-110)
--- NOTE | 2022-04-29 15:15 | P.PN_ITS ---
Subjective Subjective: No acute events overnight. On examination today patient is a lot more alert and awake. Work with physical therapy yesterday continues to remain on 3 L saturating more than 90%. Vitals/I&O/Wt Last Vital Signs Temp 97.6 F 04/29/22 12:00 Pulse 95 04/29/22 12:00 Resp 18 04/29/22 12:00 BP 128/74 04/29/22 12:00 Pulse Ox 92 04/29/22 12:00 O2 Del Method 04/29/22 12:00 O2 Flow Rate 3 04/29/22 12:00 FiO2 3 04/28/22 15:48 04/29/22 04/29/22 04/29/22 06:59 14:59 22:59 Intake Total 50 / 890 Balance 50 / -10 Physical Exam Narrative: Currently sitting up to the side of bed, complaining shortness of breath Const: COMMON NORMALS: no acute distress and patient oriented x3 HENMT: COMMON NORMALS: normocephalic and atraumatic HEAD & SCALP: normocephalic and atraumatic Eye: COMMON NORMALS: Equal, round and reactive pupils present and EOMs intact bilaterally PUPIL: Yes Equal, round and reactive pupils present Neck/C-Spine: COMMON NORMALS: no JVD Lymph: LYMPHATIC: no lymphadenopathy noted Chest: COMMONS NORMALS: normal inspection of the chest OTHER: Left chest port in place left chest port in place Resp: COMMON NORMALS: normal respiratory effort, No retractions, No use of accessory muscles and clear to auscultation bilaterally EFFORT & INSPECTION: Yes symmetric chest movement AUSCULTATION: clear to auscultation bilaterally, crackles and wheezes Cardio: COMMON NORMALS: no JVD, regular rate, regular rhythm, S1 normal heart sound present, S2 normal heart sound present, No gallops present (Cardio), No murmurs present (Cardio), No rub (Cardio) and Peripheral pulses 2+ throughout RATE: regular rate RHYTHM: regular rhythm HEART SOUNDS: S1 normal heart sound present and S2 normal heart sound present PERIPHERAL PULSES: Peripheral pulses 2+ throughout GI: COMMON NORMALS: Normal to inspection, nondistended, normoactive bowel sounds present, Soft to palpation, non-tender, No hepatosplenomegaly present and no masses AUSCULTATION: Yes normoactive bowel sounds PALPATION: Yes Soft to palpation, No Tenderness to palpation present (GI), No Guarding due to palpation present (GI), No Rigid due to palpation and Yes No hepatosplenomegaly present RECTAL EXAM: Yes deferred Extremity: COMMON NORMALS: no clubbing, cyanosis or edema, no calf tenderness and no pedal edema Neuro: COMMON NORMALS: patient oriented x3, CN's II-XII intact bilaterally and moves all extremities Psych: COMMON NORMALS: mental status grossly normal Data 04/29/22 05:26 04/29/22 06:26 A&P Assessment and plan (1) Acute respiratory failure with hypoxemia: (2) COVID-19: (3) CHF exacerbation: (4) Metastasis to lung: (5) Ischemic cardiomyopathy: (6) PRIYA (obstructive sleep apnea): (7) Hypertension: (8) Type 2 diabetes mellitus: (9) Positive cardiac stress test: (10) Shock: Resolved. 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 Resolving. Hypoxia secondary to COVID-19 pneumonia: Mild Oxygen supplementation keeping saturation over 88%. Dexamethasone 6 mg daily to finish a 10-day course. Has finished her treatment course with remdesivir. DuoNeb every 6 hour, budesonide twice daily Pulmonary toilet with incentive spirometry flutter valve. We will monitor inflammatory markers including CRP, every 48 hours. Sputum culture pending, urine Legionella, bacterial antigen negative. Blood cultures so far negative. Continue with IV ceftriaxone to finish a 5-day course for possible community- acquired pneumonia. Stop azithromycin. Given hypoxia will try to keep patient as negative as possible. Echocardiogram showed an EF of 50% with mild RV dilatation and mild TR. CT done showed no pulmonary embolism. Hold off on any further Lasix or IV fluid for now. Strict input output charting, daily weights. History of CAD: Post CABG 2014. History of ischemic cardiomyopathy. No active chest pain. Continue aspirin, statin. Continue to monitor. Type 2 diabetes mellitus, diet controlled, low-dose sliding scale CODE STATUS: Full code DVT prophylaxis on: Lovenox Plan for the day: Continue with IV ceftriaxone to finish a 7-day course. Continue with dexamethasone to finish a 10-day course. Continue with nebulization and aggressive pulmonary toilet. Oxygen supplementation keeping saturation over 88%. Continue to work with physical therapy. Patient has been accepted at SNF and is awaiting authorization. Patient's care discussed in detail with patient and his daughter over the phone. All the questions were answered. Discharge planning: Patient states he lives by himself with daughter on 300 feet away. He thinks that he reported for him to go to SNF to get stronger. Patient has not been working with physical therapy for now. He is agreeable now. We will ask physical therapy to reassess and decide accordingly. For now plan for discharge to SNF. Case management alerted. Attestations Medical Necessity Statement*: Requires further hospitalization for management of hypoxic respiratory failure in setting of COVID-19, community-acquired pneumo zuly, possible mets to lungs while safe discharge planning is sought for further rehabitation. Time Spent in Patient Care: 16 - 35 minutes Coding Level of Care Code Acute Code for Chg Fwd Diagnoses Acute respiratory failure with hypoxemia J96.01 COVID-19 U07.1 CHF exacerbation I50.9 Metastasis to lung C78.00 Ischemic cardiomyopathy I25.5 PRIYA (obstructive sleep apnea) G47.33 Hypertension I10 Type 2 diabetes mellitus E11.9 Positive cardiac stress test R94.39 Shock R57.9 Malignant neoplasm of sigmoid colon C18.7 Physical deconditioning R53.81
[2022-04-29 17:10] LABS: Glucose Point of Care 127 mg/dL (70-110)
[2022-04-29 20:45] LABS: Glucose Point of Care 140 mg/dL (70-110)
[2022-04-29] MEDS: atorvastatin 40 mg Tablet PO (20:57)
[2022-04-30] VITALS (13 sets, daily range): BP systolic 84–147; BP diastolic 58–75; PULSE 85–119; RESP 16–22; TEMP 36.6–37.1; O2SAT 90–97
[2022-04-30] MEDS: ipratropium 0.5 mg/2.5 mL Neb INHALATION ×4 (01:02→11:34)
[2022-04-30] MEDS: albuterol 2.5 mg/3 mL Neb INHALATION ×4 (01:02→11:34)
[2022-04-30 02:36] LABS: Basophils % 0.1 %; Eosinophils % 0.1 %; Hematocrit 32.1 % (42.0-52.0); Hemoglobin 10.1 g/dL (11.7-16.6); Lymphocytes # 0.5 10^3/uL (0.8-4.8); Lymphocytes % 2.9 %; Mean Corpuscular HGB Conc 31.5 g/dL (30.0-36.0); Mean Corpuscular Hemoglobin 27.2 pg (28.0-34.0); Mean Corpuscular Volume 86.5 fl (80-94); Mean Platelet Volume 10.6 fL (7.4-10.4); Monocytes # 1.5 10^3/uL (0.2-0.9); Monocytes % 9.2 %; Neutrophils # 13.61 10^3/uL (1.8-7.7); Neutrophils % 86.8 %; Nucleated Red Blood Cells % 0 %; Platelet Count 152 10^3/cmm (130-400); Red Blood Count 3.71 10^6/uL (4.1-5.3); White Blood Count 15.7 10^3/uL (4.0-10.0)
[2022-04-30] MEDS: enoxaparin 40 mg/0.4 mL Syringe SUBCUT (02:52)
[2022-04-30] MEDS: cefTRIAXone 1,000 MG in sodium chloride 0.9% (plus) 50 ML 100 MG IV (02:52)
[2022-04-30 03:03] LABS: Alanine Aminotransferase 19 U/L (0-41); Albumin Level 2.9 g/dL (3.5-5.2); Alkaline Phosphatase 346 U/L (40-130); Anion Gap 15.1 (5-19); Aspartate Amino Transferase 34 U/L (0-40); Blood Urea Nitrogen 38 mg/dL (8-23); Calcium 8.3 mg/dL (8.5-10.5); Carbon Dioxide 29 mmol/L (22-29); Chloride 95 mmol/L (98-107); Globulin 3.9 g/dL (1.3-4.6); Glucose 105 mg/dL (65-115); Osmolality Calculated 289 mOsm/kg (285-295); Potassium 4.1 mmol/L (3.5-5.1); Sodium 135 mmol/L (136-145); Total Bilirubin 0.4 mg/dL (0.15-1.2); Total Protein 6.8 g/dL (6.6-8.7)
[2022-04-30 06:50] LABS: Glucose Point of Care 85 mg/dL (70-110)
[2022-04-30] MEDS: budesonide 0.5 mg/2 mL Neb INHALATION (07:48)
--- NOTE | 2022-04-30 10:32 | P.DS_ITS ---
Discharge Providers Date of Admission: 04/21/22 23:04 Date of Discharge: April 30, 2022 Attending Provider at Admission: Tian Hardin MD Attending Provider at Discharge: Bro Gutierrez MD Primary Care Provider: Janina Clinton DO Diagnoses at Discharge Discharge Diagnosis (1) Acute respiratory failure with hypoxemia: Status: Acute (2) COVID-19: Status: Acute (3) CHF exacerbation: Status: Acute (4) Metastasis to lung: Status: Acute (5) Ischemic cardiomyopathy: Status: Acute (6) PRIYA (obstructive sleep apnea): Status: Acute (7) Hypertension: Status: Acute (8) Type 2 diabetes mellitus: Status: Acute (9) Positive cardiac stress test: Status: Acute (10) Shock: Status: Acute (11) Malignant neoplasm of sigmoid colon: Status: Acute (12) Physical deconditioning: Status: Acute Reason for Visit Reason for Visit: COVID+ Brief History: History as per HPI: Gulshan Braga is a 72 year old male with a past medical history of 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 He denies any fevers, no chills, but does report fatigue, malaise.? He lives by himself, his daughter lives near him.? Does report a nonproductive cough, no chest pain, no palpitations.? No sick contacts, recent travel, he does get fluid therapy through cancer care.? He has been off chemotherapy due to development of neutropenia for some time.? He follows up with Dr. Castillo.? Denies any calf pain, no calf swelling, no hemoptysis.? Currently he is sitting up to the side of the gurney, he tells me that he is more comfortable in this position, complains of shortness of breath while laying down, orthopnea Hospital Course Hospital Course He was admitted to hospital further evaluation and management of hypoxic respiratory failure in setting of COVID-19, community-acquired pneumonia with baseline metastasis to lung. He was started on treatment with remdesivir and dexamethasone. CTA was done which ruled out pulmonary embolism. Echocardiogram showed an EF 50% with global LV hypokinesia and dilated RV. He responded well to the treatment and has been saturating more than 90% on 3 L oxygen s upplementation. Patient did have severe physical deconditioning due to the illness for which she was seen by physical therapist. His hospitalization was otherwise unremarkable. Safe discharge plan were discussed in detail with patient and patient's daughter. Both requested for the patient to be transferred to SNF for further rehabitation. He has been discharged in hemodynamically stable condition to SNF for further rehabilitation on oral dexamethasone for 10 days and oral Lasix. Physical Exam Narrative: Currently sitting up to the side of bed, on 3 L oxygen supplementation without any difficulty in breathing or in acute distress Const: COMMON NORMALS: no acute distress and patient oriented x3 HENMT: COMMON NORMALS: normocephalic and atraumatic HEAD & SCALP: normocephalic and atraumatic Eye: COMMON NORMALS: Equal, round and reactive pupils present and EOMs intact bilaterally PUPIL: Yes Equal, round and reactive pupils present Neck/C-Spine: COMMON NORMALS: no JVD Lymph: LYMPHATIC: no lymphadenopathy noted Chest: COMMONS NORMALS: normal inspection of the chest OTHER: Left chest port in place left chest port in place Resp: COMMON NORMALS: normal respiratory effort, No retractions, No use of accessory muscles and clear to auscultation bilaterally EFFORT & INSPECTION: Yes symmetric chest movement AUSCULTATION: clear to auscultation bilaterally, crackles and wheezes Cardio: COMMON NORMALS: no JVD, regular rate, regular rhythm, S1 normal heart sound present, S2 normal heart sound present, No gallops present (Cardio), No murmurs present (Cardio), No rub (Cardio) and Peripheral pulses 2+ throughout RATE: regular rate RHYTHM: regular rhythm HEART SOUNDS: S1 normal heart sound present and S2 normal heart sound present PERIPHERAL PULSES: Peripheral pulses 2+ throughout GI: COMMON NORMALS: Normal to inspection, nondistended, normoactive bowel sounds present, Soft to palpation, non-tender, No hepatosplenomegaly present and no masses AUSCULTATION: Yes normoactive bowel sounds PALPATION: Yes Soft to palpation, No Tenderness to palpation present (GI), No Guarding due to palpation present (GI), No Rigid due to palpation and Yes No hepatosplenomegaly present RECTAL EXAM: Yes deferred Extremity: COMMON NORMALS: no clubbing, cyanosis or edema, no calf tenderness and no pedal edema Neuro: COMMON NORMALS: patient oriented x3, CN's II-XII intact bilaterally and moves all extremities Psych: COMMON NORMALS: mental status grossly normal Discharge Data Studies Completed and Pending Completed Studies During Hospitalization Category Date Time Status CT angio chest PE protcl [id number] Stat Cat Scan 04/21/22 23:05 Completed XR KUB portable [id number] Routine Exams 04/22/22 14:14 Completed XR chest 1V portable [id number] Stat Exams 04/21/22 19:27 Completed CV. echo complete* [id number] Routine Ultrasound 04/22/22 02:00 Completed Pending at discharge Category Date Time Status C Reactive Protein Q48H Lab 05/01/22 04:00 Ordered Complete Blood Count w/Auto AM LABS Lab 05/01/22 04:00 Ordered Comprehensive Metabolic Panel AM LABS Lab 05/01/22 04:00 Ordered Sputum Culture and Gram Stain Stat Lab 04/21/22 23:35 Uncollected Radiology Impressions Chest X-Ray 04/21/22 19:27 IMPRESSION: Stable chest from 11/04/2021. Known stage IV cancer. Full details above. Chest CTA 04/21/22 23:05 IMPRESSION: 1. In this patient with known stage IV cancer, the findings have, especially in the lungs, considerably progressed from 11/04/2021. This is concerning. Full details are given above. 2. No PE identified. 3. Likely moderate ileus, partially imaged, with progressive hepatic and upper abdominal tip metastases as well. KUB X-Ray 04/22/22 14:14 Impression: 1. Dilatation of the small bowel and colon most consistent with generalized ileus. 2. Moderate pyelocaliectasis the right kidney and dilatation of the right ureter consistent with distal ureteral obstruction. Laboratory Results WBC 15.7 10^3/uL (4.0-10.0) H 04/30/22 02:06 RBC 3.71 10^6/uL (4.1-5.3) L 04/30/22 02:06 Hgb 10.1 g/dL (11.7-16.6) L 04/30/22 02:06 Hct 32.1 % (42.0-52.0) L 04/30/22 02:06 MCV 86.5 fl (80-94) 04/30/22 02:06 MCH 27.2 pg (28.0-34.0) L 04/30/22 02:06 MCHC 31.5 g/dL (30.0-36.0) 04/30/22 02:06 RDW 15.0 % (12.1-15.1) 04/30/22 02:06 Plt Count 152 10^3/cmm (130-400) 04/30/22 02:06 MPV 10.6 fL (7.4-10.4) H 04/30/22 02:06 Neut % (Auto) 86.8 % 04/30/22 02:06 Lymph % (Auto) 2.9 % 04/30/22 02:06 [place] % (Auto) 9.2 % 04/30/22 02:06 Eos % (Auto) 0.1 % 04/30/22 02:06 Baso % (Auto) 0.1 % 04/30/22 02:06 Neut # (Auto) 13.61 10^3/uL (1.8-7.7) H 04/30/22 02:06 Lymph # (Auto) 0.5 10^3/uL (0.8-4.8) L 04/30/22 02:06 [place] # (Auto) 1.5 10^3/uL (0.2-0.9) H 04/30/22 02:06 Eos # (Auto) 0.0 10^3/uL (0.0-0.8) 04/30/22 02:06 Baso # (Auto) 0.0 10^3/uL (0.0-0.1) 04/30/22 02:06 Nucleated RBC % (auto) 0 % 04/30/22 02:06 Nucleated RBCs # 0.0 /100WBC 04/30/22 02:06 ESR 34 mm/hr (0-10) H 04/23/22 05:41 PT 13.10 SECONDS (12.1-14.9) 04/21/22 18:56 INR 0.96 (0.8-1.2) 04/21/22 18:56 D-Dimer 1.45 ug/mIFEU (0-0.59) H 04/23/22 05:41 Specimen Type Arterial 04/21/22 20:33 Sample Site Radial, left 04/21/22 20:33 ABG pH 7.42 (7.35-7.45) 04/21/22 20:33 ABG pCO2 28.5 mmHg (35-45) L 04/21/22 20:33 ABG pO2 62.7 mmHg (80.0-100.0) L 04/21/22 20:33 ABG HCO3 18.5 mmol/L (22-26) L 04/21/22 20:33 ABG Base Excess -4.6 mmol/L (-2.0-2.0) L 04/21/22 20:33 Anival Test Pos 04/21/22 20:33 Hematocrit 45.7 % (42-52) 04/21/22 20:33 Hgb O2 Saturation 90.5 % (95-100) L 04/21/22 20:33 Carboxyhemoglobin 1.2 %THgb (0.4-20.1) 04/21/22 20: Methemoglobin 0.6 % (0.4-1.5) 04/21/22 20:33 Total Hemoglobin 14.9 g/dL (14-18) 04/21/22 20:33 O2 Delivery Device Nc 04/21/22 20:33 O2 Liters/Min 3.0 % 04/21/22 20:33 FiO2 32.0 % 04/21/22 20:33 Diamond Setter ID Isaiah 04/21/22 20:33 Sodium 135 mmol/L (136-145) L 04/30/22 02:06 Potassium 4.1 mmol/L (3.5-5.1) 04/30/22 02:06 Chloride 95 mmol/L (98-107) L 04/30/22 02:06 Carbon Dioxide 29 mmol/L (22-29) 04/30/22 02:06 Anion Gap 15.1 (5-19) 04/30/22 02:06 BUN 38 mg/dL (8-23) H 04/30/22 02:06 Creatinine 1.2 mg/dL (0.7-1.2) 04/30/22 02:06 GFR Calculation Not Reportable 04/30/22 02:06 Glucose 105 mg/dL (65-115) 04/30/22 02:06 POC Glucose 85 mg/dL (70-110) 04/30/22 06:46 Calculated Osmolality 289 mOsm/kg (285-295) 04/30/22 02:06 Lactic Acid 1.7 mmol/L (0.5-2.2) 04/21/22 20:06 Calcium 8.3 mg/dL (8.5-10.5) L 04/30/22 02:06 Magnesium 1.9 mg/dL (1.7-2.3) 04/22/22 02:10 Ferritin 1841 ng/mL (30-400) H 04/23/22 05:41 Total Bilirubin 0.4 mg/dL (0.15-1.2) 04/30/22 02:06 AST 34 U/L (0-40) 04/30/22 02:06 ALT 19 U/L (0-41) 04/30/22 02:06 Alkaline Phosphatase 346 U/L (40-130) H 04/30/22 02:06 Lactate Dehydrogenase 378 U/L (135-225) H 04/23/22 05:41 Troponin T Baseline 31 ng/L (0-15) H 04/21/22 23:17 Troponin T 120 Minute 27.26 ng/L (0-15) H 04/22/22 02:10 Delta Troponin T -3.74 ABS# (0-10) L 04/22/22 02:10 Troponin T Hi Sens 6Hr 25.45 ng/L (0-15) H 04/22/22 05:13 Troponin T Hi Sens 6Hr Delta -5.55 ng/L (0-12) L 04/22/22 05:13 C-Reactive Protein 155.2 mg/L (0.0-4.9) H 04/29/22 06:26 NT-Pro-B Natriuret Pep 1447 pg/mL (0-125) H 04/22/22 02:10 Total Protein 6.8 g/dL (6.6-8.7) 04/30/22 02:06 Albumin 2.9 g/dL (3.5-5.2) L 04/30/22 02:06 Globulin 3.9 g/dL (1.3-4.6) 04/30/22 02:06 Vitamin B12 689 pg/mL (232-1245) 04/28/22 05:12 Folate 2.3 ng/mL (4.5-32.2) L 04/28/22 15:40 Procalcitonin 0.40 ng/mL (0-0.5) 04/28/22 05:12 TSH 1.48 uIU/mL (0.27-4.20) 04/22/22 02:10 Random Cortisol 18.87 ug/dL (2.47-19.5) 04/22/22 02:10 Urine Color Yellow (Yellow) 04/22/22 03:01 Urine Appearance Clear (CLEAR) 04/22/22 03:01 Urine pH 5 (5-7) 04/22/22 03:01 Ur Specific [place] 1.015 (1.005-1.030) 04/22/22 03:01 Urine Protein Neg (Negative) 04/22/22 03:01 Urine Glucose (UA) Norm (Normal) 04/22/22 03:01 Urine Ketones 1+ (Negative) H 04/22/22 03:01 Urine Blood 2+ (Negative) H 04/22/22 03:01 Urine Nitrate Negative (Negative) 04/22/22 03:01 Urine Bilirubin Neg (Negative) 04/22/22 03:01 Urine Urobilinogen Norm mg/dL (Negative) 04/22/22 03:01 Ur Leukocyte Esterase Negative (Negative) 04/22/22 03:01 Urine RBC 15-25 /hpf (0-2) H 04/22/22 03:01 Urine WBC 0-4 /hpf (0-5) H 04/22/22 03:01 Ur Squamous Epith Cells None /hpf (0-5) 04/22/22 03:01 Amorphous Sediment 2+ /hpf 04/22/22 03:01 Urine Bacteria None /hpf (NONE) 04/22/22 03:01 Hyaline Casts 0-4 /lpf H 04/22/22 03:01 Fine Granular Casts 0-2 /lpf 04/22/22 03:01 Coronavirus 229E (PCR) Not detected (NOT DETECT) 04/21/22 19:40 Influenza Type A Ag negative (Negative) 04/21/22 19:40 Influenza Type B Ag negative (Negative) 04/21/22 19:40 SARS-CoV-2 (PCR) Detected (NOT DETECT) A 04/21/22 19:40 Vitals Last Vital Signs Temp 98.7 F 01/25/23 07:36 Pulse 93 04/30/22 08:02 Resp 16 04/30/22 07:51 BP 120/75 04/30/22 07:36 Pulse Ox 94 04/30/22 07:51 O2 Del Method 04/30/22 07:51 O2 Flow Rate 3 04/30/22 07:51 FiO2 3 04/28/22 15:48 Discharge Plan Discharge Patient Disposition: Home Health Service Condition: Stable Prescriptions: New docusate sodium 100 mg Capsule 100 mg PO BID Qty: 14 0RF folic acid 1 mg Tablet 1 mg PO BID Qty: 60 0RF multivitamin with folic acid [Thera] 400 mcg Tablet 1 tab PO DAILY Qty: 30 0RF Combivent Respimat 20-100 mcg/actuation mist 1 puff inhalation Q6H Qty: 4 0RF dexamethasone 6 mg tablet 6 mg PO Q24H Qty: 7 0RF Rx Instructions: for up to 10 days furosemide [Lasix] 20 mg tablet 20 mg PO QAM Qty: 30 0RF levofloxacin 750 mg tablet 750 mg PO Q24H 5 Days Qty: 5 0RF Continued cholecalciferol (vitamin D3) 50 mcg (2,000 unit) capsule 50 mcg PO DAILY ferrous sulfate 325 mg (65 mg iron) tablet,delayed release (DR/EC) 325 mg PO EVERY OTHER DAY magnesium oxide 400 mg magnesium capsule 400 mg PO BID diphenoxylate-atropine [Lomotil] 2.5-0.025 mg tablet 2 tab PO QID PRN (Reason: diarrhea) Qty: 60 0RF aspirin 81 mg tablet,delayed release (DR/EC) 81 mg PO DAILY Qty: 30 0RF ondansetron HCl 8 mg tablet 8 mg PO Q8H PRN (Reason: nausea and vomiting) Qty: 30 1RF benzonatate 100 mg capsule 100 mg PO TID PRN (Reason: cough) Qty: 30 0RF albuterol sulfate 90 mcg/actuation HFA aerosol inhaler 2 puff INHALATION Q6H PRN (Reason: Shortness Of Breath) Discharge Orders: Discharge Order (Routine); Ordered 04/30/22 Ordered By: Bro Gutierrez Referrals: [facility] ([facility]) [Outside] Janina Clinton DO [Primary Care Provider] - 7-10 days Discharge Diet: Cardiac Discharge Activity: Resume usual activity and Increase activity as tolerated Patient Instructions: Opioid Safety Activity Restrictions/Additional Instructions: Continue taking dexamethasone for next 1 week. Take Levaquin for next 5 days to finish a course of oral antibiotics. Please continue to work with physical therapy going forward. You will be on Combivent which is inhalation treatment 4-6 times a day. Water pill/Lasix 20 mg oral daily has been added to your medication list. Discharge Attestations Time Spent in Discharge Care*: greater than 30 min Specific Discharge Activities: educating patient, educating and/or supporting family/caregiver, discussing with pcp/other providers, discussing with case reviewer/social workers/dc planners, documenting/other paperwork and evaluating patient/reviewing data Status at Discharge: Cognitive status at discharge: cognitively intact , Behavioral status at discharge: cooperative , Functional status at discharge: independent ambulation , Overall status at discharge: patient is back to baseline Quality Metrics Clinical Quality Measures [ No reported AMI, CVA or VTE this stay] Coding Level of Care Code Acute Chg FW DC note Diagnoses Acute respiratory failure with hypoxemia J96.01 COVID-19 U07.1 CHF exacerbation I50.9 Metastasis to lung C78.00 Ischemic cardiomyopathy I25.5 PRIYA (obstructive sleep apnea) G47.33 Hypertension I10 Type 2 diabetes mellitus E11.9 Positive cardiac stress test R94.39 Shock R57.9 Malignant neoplasm of sigmoid colon C18.7 Physical deconditioning R53.81
[2022-04-30] MEDS: aspirin 81 mg EC Tablet PO (10:36)
[2022-04-30] MEDS: cyanocobalamin 1,000 mcg Tablet 500 MCG PO (10:36)
[2022-04-30] MEDS: magnesium oxide 400 mg tablet PO (10:37)
[2022-04-30] MEDS: dexamethasone 10 mg/mL INJ 6 MG IVP (10:37)
[2022-04-30] MEDS: cholecalciferol (vitamin D3) 1,000 unit Tablet 1000 UNIT PO (10:37)
[2022-04-30] MEDS: ferrous sulfate EC 325 mg Tablet PO (10:37)
[2022-04-30] MEDS: multivitamin therapeutic Tablet 1 TAB PO (10:37)
[2022-04-30] MEDS: pantoprazole DR 40 mg Tablet PO (10:37)
[2022-04-30] MEDS: folic acid 1 mg Tablet PO (10:37)
[2022-04-30] MEDS: docusate sodium 100 mg Capsule PO (10:38)
--- NOTE | 2022-04-30 13:16 | PC.NURSE ---
report called to Kaur at [facility].
--- NOTE | 2022-04-30 13:46 | PC.SOCIAL ---
IMM update IMM updated with patient at bedside. Copy of page 2 provided. Patient verbalized understanding. Copy in chart initialed, dated and timed.
[2022-04-30 16:51] LABS: Glucose Point of Care 153 mg/dL (70-110)
== END 2022-04-30 18:33 | disposition skilled nursing facility (03) | DRG 177 ==
LOC: ER 22:42 → MEDSURG 23:31
PROVIDERS: Internal Medicine; Admitting Provider Family Medicine; Emergency Provider Emergency Medicine; PCP Family Medicine; Visit Provider Student in an Organized Health Care Education/Training Program
DX: U07.1 COVID-19 (principal); I50.21 Acute systolic (congestive) heart failure; J12.82 Pneumonia due to coronavirus disease 2019; J96.01 Acute respiratory failure with hypoxia; C18.7 Malignant neoplasm of sigmoid colon; C78.7 Secondary malignant neoplasm of liver and intrahepatic bile duct; C78.00 Secondary malignant neoplasm of unspecified lung; C77.2 Secondary and unspecified malignant neoplasm of intra-abdominal lymph nodes; C79.72 Secondary malignant neoplasm of left adrenal gland; I11.0 Hypertensive heart disease with heart failure; I25.5 Ischemic cardiomyopathy; G47.33 Obstructive sleep apnea (adult) (pediatric); E11.9 Type 2 diabetes mellitus without complications; I25.10 Atherosclerotic heart disease of native coronary artery without angina pectoris; Z95.1 Presence of aortocoronary bypass graft; E78.5 Hyperlipidemia, unspecified; Z79.82 Long term (current) use of aspirin; Z79.51 Long term (current) use of inhaled steroids; Z87.891 Personal history of nicotine dependence; Z88.0 Allergy status to penicillin; Z95.828 Presence of other vascular implants and grafts
CPT/HCPCS: 36415; 36416; 36600; 71045; 71275; 74018; 80048; 80053; 81001; 82533; 82607; 82728; 82746; 82805; 82962; 83605; 83615; 83735; 83880; 84145; 84443; 84484; 85025; 85378; 85610; 85651; 86140; 86403; 87040; 87635; 87804; 93005; 93306; 94640; 94664; 96372; 96374; 97116; 97161; 97165; 97530; 99285; J0248; J0456; J0696; J1100; J1650; J1815; J1940; J2405; J7050; J7613; J7626; J7644; Q9967

== ENCOUNTER 2022-04-25 09:30 | Oncology outpatient (recurring) (ONCR) | payer MEDICARE, OTHER, SELFPAY ==
[2022-04-08] MEDS: sodium chloride 0.9% 1,000 ML 500 ML IV (09:35)
[2022-04-08 09:50] LABS: Alanine Aminotransferase 8 U/L (0-41); Albumin Level 3.4 g/dL (3.5-5.2); Alkaline Phosphatase 151 U/L (40-130); Anion Gap 13.7 (5-19); Aspartate Amino Transferase 19 U/L (0-40); Blood Urea Nitrogen 13 mg/dL (8-23); Calcium 8.1 mg/dL (8.5-10.5); Carbon Dioxide 20 mmol/L (22-29); Chloride 106 mmol/L (98-107); Globulin 3.5 g/dL (1.3-4.6); Glucose 72 mg/dL (65-115); Osmolality Calculated 281 mOsm/kg (285-295); Potassium 3.7 mmol/L (3.5-5.1); Sodium 136 mmol/L (136-145); Total Bilirubin 0.4 mg/dL (0.15-1.2); Total Protein 6.9 g/dL (6.6-8.7)
[2022-04-08 10:23] LABS: Basophils # 0.1 10^3/uL (0.0-0.1); Basophils % 0.7 %; Eosinophils # 0.3 10^3/uL (0.0-0.8); Eosinophils % 2.4 %; Hematocrit 32.8 % (42.0-52.0); Hemoglobin 10.4 g/dL (11.7-16.6); Lymphocytes # 1.1 10^3/uL (0.8-4.8); Lymphocytes % 10.3 %; Mean Corpuscular HGB Conc 31.7 g/dL (30.0-36.0); Mean Corpuscular Hemoglobin 28.3 pg (28.0-34.0); Mean Corpuscular Volume 89.4 fl (80-94); Mean Platelet Volume 10.1 fL (7.4-10.4); Monocytes # 1.1 10^3/uL (0.2-0.9); Monocytes % 9.9 %; Neutrophils # 8.19 10^3/uL (1.8-7.7); Neutrophils % 76.2 %; Nucleated Red Blood Cells % 0 %; Platelet Count 208 10^3/cmm (130-400); Red Blood Count 3.67 10^6/uL (4.1-5.3); White Blood Count 10.8 10^3/uL (4.0-10.0)
[2022-04-08 11:35] VITALS: BP 111/61; PULSE 75; RESP 17; TEMP 37.2; O2SAT 98
[2022-04-11] MEDS: sodium chloride 0.9% 1,000 ML 999 ML IV (09:48)
[2022-04-17] MEDS: sodium chloride 0.9% 500 ML 999 ML IV (10:48)
[2022-04-17 11:00] LABS: Basophils % 0.3 %; Eosinophils # 0.1 10^3/uL (0.0-0.8); Eosinophils % 1.5 %; Hematocrit 35.2 % (42.0-52.0); Hemoglobin 10.9 g/dL (11.7-16.6); Lymphocytes # 0.9 10^3/uL (0.8-4.8); Lymphocytes % 12.6 %; Mean Corpuscular Hemoglobin 27.5 pg (28.0-34.0); Mean Corpuscular Volume 88.9 fl (80-94); Mean Platelet Volume 9.3 fL (7.4-10.4); Monocytes # 0.6 10^3/uL (0.2-0.9); Monocytes % 9.3 %; Neutrophils % 75.7 %; Nucleated Red Blood Cells % 0 %; Platelet Count 106 10^3/cmm (130-400); Red Blood Count 3.96 10^6/uL (4.1-5.3); Red Cell Distribution Width 14.8 % (12.1-15.1); White Blood Count 6.7 10^3/uL (4.0-10.0)
[2022-04-17 11:20] LABS: Alanine Aminotransferase 15 U/L (0-41); Albumin Level 3.5 g/dL (3.5-5.2); Alkaline Phosphatase 236 U/L (40-130); Aspartate Amino Transferase 36 U/L (0-40); Blood Urea Nitrogen 20 mg/dL (8-23); Calcium 8.3 mg/dL (8.5-10.5); Carbon Dioxide 20 mmol/L (22-29); Chloride 104 mmol/L (98-107); Globulin 3.8 g/dL (1.3-4.6); Glucose 77 mg/dL (65-115); Osmolality Calculated 283 mOsm/kg (285-295); Sodium 136 mmol/L (136-145); Total Bilirubin 0.3 mg/dL (0.15-1.2); Total Protein 7.3 g/dL (6.6-8.7)
[2022-04-17 13:00] VITALS: TEMP 36.8
== END 2022-05-06 23:59 | disposition home or self-care (01) ==
PROVIDERS: PCP Family Medicine; Visit Provider Internal Medicine Medical Oncology
DX: C18.7 Malignant neoplasm of sigmoid colon (principal)
CPT/HCPCS: 36591; 80053; 80503; 85025; 86850; 86870; 86900; 96365; 96366; J7030; J7040

== ENCOUNTER 2022-05-02 08:57 | Emergency (ER) | payer MEDICARE, OTHER, SELFPAY ==
[2022-05-02] VITALS (39 sets, daily range): BP systolic 98–141; BP diastolic 66–111; PULSE 87–105; RESP 16–19; TEMP 36.8; O2SAT 87–98
--- NOTE | 2022-05-02 09:04 | XR_ITS ---
WS: [id number] Exam: XR chest 1V portable [id number] Date/Time of Exam: 05/02/2022 9:07 AM Reason For Exam: SOB Comparison 04/21/2022. Interval development of some airspace pneumonia in the mid and lower left lung since prior study. Aga in noted are pulmonary nodules and masses in both lungs unchanged in appearance. Cardiomediastinal si lhouette is unremarkable. No pneumothorax or pleural effusion. Large amount of bowel noted beneath th e diaphragms demonstrating little change. A left subclavian port ends in the lower one third of the S VC. Scattered areas of scarring and atelectasis in the right lung. Bony structures are intact. XR/XR chest 1V portable [id number] IMPRESSION: 1. There appears to be some new airspace pneumonia in the mid and lower left sravanthi ng since the prior study. 2. Again noted are masses and nodules in both lungs secondary to known metastat ic pulmonary disease. 3. Left-sided port remains in satisfactory position. No other changes.
--- NOTE | 2022-05-02 09:08 | ECG_ITS ---
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
[2022-05-02 09:15] LABS: Basophils % 0.1 %; Hematocrit 32.2 % (42.0-52.0); Lymphocytes # 0.5 10^3/uL (0.8-4.8); Lymphocytes % 2.7 %; Mean Corpuscular HGB Conc 31.1 g/dL (30.0-36.0); Mean Corpuscular Hemoglobin 27.2 pg (28.0-34.0); Mean Corpuscular Volume 87.7 fl (80-94); Mean Platelet Volume 10.2 fL (7.4-10.4); Monocytes % 10.6 %; Neutrophils # 15.88 10^3/uL (1.8-7.7); Neutrophils % 85.8 %; Nucleated Red Blood Cells % 0 %; Platelet Count 151 10^3/cmm (130-400); Red Blood Count 3.67 10^6/uL (4.1-5.3); Red Cell Distribution Width 15.1 % (12.1-15.1); White Blood Count 18.5 10^3/uL (4.0-10.0)
--- NOTE | 2022-05-02 09:24 | W.ED.CHESTPA ---
HPI - Chest Pain General: Chief Complaint: Chest Pain Stated Complaint: Pntiffnonmichael SOB Time Seen by Provider: 05/02/22 08:59 Source: patient Mode of arrival: EMS History of Present Illness: 72-year-old male presents emergency room with shortness of breath and chest pain. 10 days post COVID. He normally is not on any oxygen he does have a history of colon cancer which is not currently being treated. He is requiring 3 L by nasal cannula. He was given albuterol and Solu-Medrol in route blood pressure initially 88/54. Has improved on arrival here is 112/72. Room air sat at the group home reported to be 84%. He has chest pain radiating into his left arm. He has a known history of coronary artery disease. MD complaint: chest pain Onset (ago): hour(s) Timing of current episode: episodic Prior episodes: No Onset: during rest Pain location: substernal Pain radiation: neck Quality: aching and heaviness Relieving factors: nothing Exacerbating factors: nothing Associated symptoms: Deny abdominal pain, diaphoresis, dyspnea, fever(s), leg edema, nausea, palpitations, sense of impending doom, syncope or vomiting Treatment prior to arrival: none Review of Systems Const: Denies: fever(s), chills, fatigue, malaise or diaphoresis ENMT: Denies: throat pain, ear or mastoid pain, nasal discharge or nasal congestion Card: Reports: chest pain; Denies: palpitations, irregular heart rhythm, edema or syncope Resp: Denies: dyspnea, productive cough or non-productive cough GI: Denies: abdominal pain, nausea or vomiting : Denies: flank pain, difficulty urinating, dysuria or urinary frequency Musc: Denies: back pain Skin/Breast: Denies: rash or pruritus PFS ED PFSH: Medical History CAD (coronary artery disease) CHF (congestive heart failure), NYHA class I Colon cancer Metastatic to multiple sites including lungs, liver, intra-abdominal lymph nodes, and left adrenal gland Diabetes Dyslipidemia Fatigue Hyperlipidemia Hypertension Hypokalemia Ischemic cardiomyopathy Nephrolithiasis PRIYA (obstructive sleep apnea) PVCs (premature ventricular contractions) Type 2 diabetes mellitus Surgical History History of appendectomy History of cataract extraction History of cholecystectomy History of lithotripsy (06/14/18) Extracorporeal shockwave lithotripsy with ureteral stent placement for left distal ureteral stone Hx of CABG 2014 Port-A-Cath in place (01/04/20) left subclavian Family History Other CAD (coronary artery disease) Myocardial infarction Social History Smoking and tobacco status: former smoker (smoked x 37 years) Quit status (tobacco): has quit using tobacco Year quit tobacco: 2004 Alcohol intake: never Physical Exam Const: GENERAL APPEARANCE: cooperative and comfortable ORIENTATION/CONSCIOUSNESS: Yes awake, Yes oriented to person, Yes oriented to place and Yes oriented to time HENMT: COMMON NORMALS: normocephalic, atraumatic and hearing grossly normal bilaterally HEAD & SCALP: normocephalic and atraumatic Resp: AUSCULTATION: rhonchi and wheezes Cardio: COMMON NORMALS: regular rate, regular rhythm and No murmurs present (Cardio) RATE: regular rate RHYTHM: regular rhythm GI: COMMON NORMALS: Soft to palpation and No hepatosplenomegaly present AUSCULTATION: Yes normoactive bowel sounds PALPATION: Yes Soft to palpation, No Tenderness to palpation present (GI), No Guarding due to palpation present (GI) and Yes No hepatosplenomegaly present Extremity: COMMON NORMALS: normal to inspection, capillary refill normal, no clubbing, cyanosis or edema, no calf tenderness and no pedal edema Neuro: SENSORIUM/ORIENTATION: Yes oriented to person, Yes oriented to place and Yes oriented to time Skin: COMMON NORMALS: no rashes or lesions noted GENERAL SKIN EXAM: no rashes or lesions noted Course Vital Signs: Vital signs: Vital Signs Temperature 98.3 F 05/02/22 08:57 Pulse Rate 90 05/02/22 13:17 Respiratory Rate 16 05/02/22 13:15 Blood Pressure 104/68 05/02/22 14:35 Pulse Oximetry 95 05/02/22 14:35 Oxygen Delivery Me thod 05/02/22 13:15 Oxygen Flow Rate 4 05/02/22 13:15 MDM - Chest Pain Medical Decision Making Labs imaging and EKG reviewed. Patient is a multiple causes for his chest pain. Earlier this month he had a myocardial perfusion scan showed a large defect with only subtle reversibility. Troponins are negative. CT of the chest did not show any pulmonary embolism but did show significant amount of metastasis throughout the chest as well as diffuse hepatic metastasis. Reviewed all of this with the patient. Given his overall condition with his lung cancer and widespread metastasis and the lack of elevation troponins at this point would just observe I suspect a good deal of his chest pain is related to his lung cancer. Patient does not wish any further intervention as far as cardiac which given his overall comorbid conditions is appropriate. Will discharge home follow-up as planned. On the CT there is a question of some new airspace pneumonia will cover with Levaquin. Medical Records I reviewed the patient's medical records. Lab Data I reviewed the patient's lab results. 05/02/22 08:40 05/02/22 08:40 Radiology Impressions Chest X-Ray 05/02/22 09:04 IMPRESSION: 1. There appears to be some new airspace pneumonia in the mid and lower left lung since the prior study. 2. Again noted are masses and nodules in both lungs secondary to known metastatic pulmonary disease. 3. Left-sided port remains in satisfactory position. No other changes. Chest CTA 05/02/22 11:04 IMPRESSION: 1. No evidence of pulmonary embolus. 2. Innumerable pulmonary parenchymal metastasis largest in the LEFT lung of the LEFT hilum and LEFT lower lobe as previously described. These are unchanged. 3. Partially calcified tip metastasis visualized upper abdomen. Diffuse hepatic metastasis. 4. Volume loss LEFT lung. 5. No new pulmonary infiltrates. 6. Lesions partially visualized in the upper abdomen appears unchanged. 7. Tiny bilateral pleural effusions. Laboratory Results WBC 18.5 10^3/uL (4.0-10.0) H 05/02/22 08:40 RBC 3.67 10^6/uL (4.1-5.3) L 05/02/22 08:40 Hgb 10.0 g/dL (11.7-16.6) L 05/02/22 08:40 Hct 32.2 % (42.0-52.0) L 05/02/22 08:40 MCV 87.7 fl (80-94) 05/02/22 08:40 MCH 27.2 pg (28.0-34.0) L 05/02/22 08:40 MCHC 31.1 g/dL (30.0-36.0) 05/02/22 08:40 RDW 15.1 % (12.1-15.1) 05/02/22 08:40 Plt Count 151 10^3/cmm (130-400) 05/02/22 08:40 MPV 10.2 fL (7.4-10.4) 05/02/22 08:40 Neut % (Auto) 85.8 % 05/02/22 08:40 Lymph % (Auto) 2.7 % 05/02/22 08:40 [place] % (Auto) 10.6 % 05/02/22 08:40 Eos % (Auto) 0.0 % 05/02/22 08:40 Baso % (Auto) 0.1 % 05/02/22 08:40 Neut # (Auto) 15.88 10^3/uL (1.8-7.7) H 05/02/22 08:40 Lymph # (Auto) 0.5 10^3/uL (0.8-4.8) L 05/02/22 08:40 [place] # (Auto) 2.0 10^3/uL (0.2-0.9) H 05/02/22 08:40 Eos # (Auto) 0.0 10^3/uL (0.0-0.8) 05/02/22 08:40 Baso # (Auto) 0.0 10^3/uL (0.0-0.1) 05/02/22 08:40 Nucleated RBC % (auto) 0 % 05/02/22 08:40 Nucleated RBCs # 0.0 /100WBC 05/02/22 08:40 D-Dimer 1.64 ug/mIFEU (0-0.59) H 05/02/22 09:40 Sodium 138 mmol/L (136-145) 05/02/22 08:40 Potassium 4.1 mmol/L (3.5-5.1) 05/02/22 08:40 Chloride 97 mmol/L (98-107) L 05/02/22 08:40 Carbon Dioxide 26 mmol/L (22-29) 05/02/22 08:40 Anion Gap 19.1 (5-19) H 05/02/22 08:40 BUN 47 mg/dL (8-23) H 05/02/22 08:40 Creatinine 1.4 mg/dL (0.7-1.2) H 05/02/22 08:40 GFR Calculation Not Reportable 05/02/22 08:40 Glucose 65 mg/dL (65-115) 05/02/22 08:40 Calculated Osmolality 296 mOsm/kg (285-295) H 05/02/22 08:40 Calcium 8.9 mg/dL (8.5-10.5) 05/02/22 08:40 Total Bilirubin 0.6 mg/dL (0.15-1.2) 05/02/22 08:40 AST 65 U/L (0-40) H 05/02/22 08:40 ALT 44 U/L (0-41) H 05/02/22 08:40 Alkaline Phosphatase 361 U/L (40-130) H 05/02/22 08:40 Troponin T Baseline 39 ng/L (0-15) H 05/02/22 08:40 Troponin T 120 Minute 37.99 ng/L (0-15) H 05/02/22 10:45 Delta Troponin T -1.01 ABS# (0-10) L 05/02/22 10:45 Troponin T Hi Sens 6Hr 38.98 ng/L (0-15) H 05/02/22 14:35 Troponin T Hi Sens 6Hr Delta -0.02 ng/L (0-12) L 05/02/22 14:35 NT-Pro-B Natriuret Pep 2314 pg/mL (0-125) H 05/02/22 08:40 Total Protein 6.7 g/dL (6.6-8.7) 05/02/22 08:40 Albumin 3.0 g/dL (3.5-5.2) L 05/02/22 08:40 Globulin 3.7 g/dL (1.3-4.6) 05/02/22 08:40 Procalcitonin 1.01 ng/mL (0-0.5) H 05/02/22 08:40 Discharge Plan Discharge Patient Disposition: Home Clinical Impression: Atypical chest pain, Type 2 diabetes mellitus, Metastasis to lung, Malignant neoplasm of sigmoid colon, Pneumonia Condition: Stable Prescriptions: New levofloxacin 500 mg tablet 500 mg PO DAILY 7 Days Qty: 7 0RF No Action cholecalciferol (vitamin D3) 50 mcg (2,000 unit) capsule 50 mcg PO DAILY@08 ferrous sulfate 325 mg (65 mg iron) tablet,delayed release (DR/EC) 325 mg PO EVERY OTHER DAY magnesium oxide 400 mg magnesium capsule 400 mg PO BID ondansetron HCl 8 mg tablet 8 mg PO Q8H PRN (Reason: nausea and vomiting) Qty: 30 1RF benzonatate 100 mg capsule 100 mg PO TID PRN (Reason: cough) Qty: 30 0RF albuterol sulfate 90 mcg/actuation HFA aerosol inhaler 2 puff INHALATION Q6H PRN (Reason: Shortness Of Breath) docusate sodium 100 mg Capsule 100 mg PO BID Qty: 14 0RF folic acid 1 mg Tablet 1 mg PO BID Qty: 60 0RF furosemide [Lasix] 20 mg tablet 20 mg PO QAM Qty: 30 0RF Milk of Magnesia 400 mg/5 mL Suspension 30 ml PO DAILY PRN (Reason: Constipation) Dulcolax (bisacodyl) 10 mg Suppository 10 mg [place] DAILY PRN (Reason: Constipation) Fleet Enema 19-7 gram/118 mL Enema 118 ml [place] DAILY PRN (Reason: Constipation) dexamethasone 6 mg tablet 6 mg PO DAILY@08 Rx Instructions: TILL 05/08/22 Lomotil 2.5-0.025 mg tablet 2 tab PO Q6H PRN (Reason: diarrhea) aspirin 81 mg tablet,delayed release (DR/EC) 81 mg PO DAILY@08 levofloxacin 750 mg tablet 750 mg PO DAILY@08 Rx Instructions: END DATE 05/05/22 Thera 400 mcg tablet 1 tab PO DAILY@08 Combivent Respimat 20-100 mcg/actuation mist 1 puff inhalation QID Rx Instructions: @07:00,11:00,16:00,19:00 Discharge Orders: Discharge ED (Routine); Ordered 05/02/22 Ordered By: Sherif Loza Referrals: Janina Clinton DO [Primary Care Provider] - Discharge Diet: Usual diet Discharge Activity: Limit activity as instructed Patient Instructions: Opioid Safety, Pain Management Activity Restrictions/Additional Instructions: You were seen today for chest pain. Your cardiac enzymes were negative. There is no evidence of pulmonary embolism or new pneumonia on the chest CT. White count was elevated due to the steroids you are currently taking. Suspect that your chest pain was due to the lung metastasis. You be discharged back to the group home on Levaquin 500 mg daily for 7 days continue the steroids use albuterol as needed. 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
[2022-05-02 09:32] LABS: Troponin(5th) Baseline 39 ng/L (0-15)
[2022-05-02 09:39] LABS: Procalcitonin 1.01 ng/mL (0-0.5)
[2022-05-02 09:40] LABS: Alanine Aminotransferase 44 U/L (0-41); Alkaline Phosphatase 361 U/L (40-130); Anion Gap 19.1 (5-19); Aspartate Amino Transferase 65 U/L (0-40); Blood Urea Nitrogen 47 mg/dL (8-23); Calcium 8.9 mg/dL (8.5-10.5); Carbon Dioxide 26 mmol/L (22-29); Chloride 97 mmol/L (98-107); Globulin 3.7 g/dL (1.3-4.6); Glucose 65 mg/dL (65-115); NT Pro B Type Natriuretic Pept 2314 pg/mL (0-125); Osmolality Calculated 296 mOsm/kg (285-295); Potassium 4.1 mmol/L (3.5-5.1); Sodium 138 mmol/L (136-145); Total Bilirubin 0.6 mg/dL (0.15-1.2); Total Protein 6.7 g/dL (6.6-8.7)
[2022-05-02 09:59] LABS: D Dimer 1.64 ug/mIFEU (0-0.59)
--- NOTE | 2022-05-02 11:04 | CT_ITS ---
WS: [id number] CTA OF THE CHEST WITH PULMONARY EMBOLISM PROTOCOL TECHNIQUE: High-resolution contrast enhanced CTA of the chest with coronal and sagittal reformatted i bismarks with pulmonary embolism protocol. MIP images are also reviewed. CLINICAL INFORMATION: elevated d dimer COMPARISON: CTA April 22, 2022 DLP: 277.[address] scans at [facility] use at least one of these dose optimization techniques: automated e xposure control; mA and/or kV adjustment per patient size (includes targeted exams where dose is matc hed to clinical indication); or iterative reconstruction. FINDINGS: Proximal main pulmonary arteries are normal. Normal segmental and subsegmental pulmonary arteries. No evidence of filling defects to indicate pulmonary embolus. Numerous bilateral pulmonary metastasis largest in the LEFT lower lobe and about the LEFT hilum uncha nged since the recent CT. Tiny bilateral pleural effusions. Findings compatible with known metastatic disease. Diffuse partially visualized liver metastasis. Lym phadenopathy partially visualized in the upper abdomen. Splenic artery calcification. Normal GE junct ion. Normal caliber thoracic aorta. Aortic calcification. Coronary calcification. Volume loss LEFT sravanthi ng. Hypertrophic changes thoracic spine. There is partially visualized in the upper abdomen unchanged. CT/CT angio chest PE protcl [id number] IMPRESSION: 1. No evidence of pulmonary embolus. 2. Innumerable pulmonary parenchymal metastasis largest in the LEFT lung of th e LEFT hilum and LEFT lower lobe as previously described. These are unchanged. 3. Partially calcified tip metastasis visualized upper abdomen. Diffuse hepa tic metastasis. 4. Volume loss LEFT lung. 5. No new pulmonary infiltrates. 6. Lesions partially visualized in the upper abdomen appears unchanged. 7. Tiny bilateral pleural effusions.
[2022-05-02 11:06] LABS: Troponin 5 2HR 37.99 ng/L (0-15)
[2022-05-02 11:14] LABS: Troponin 5 2HR Delta -1.01 ABS# (0-10)
[2022-05-02] MEDS: FUROsemide 10 mg/mL SDV 4mL 40 MG IVP (11:42)
[2022-05-02] MEDS: levofloxacin-dextrose 5 % 500 MG/100 ML PREMIX 100 MG IV (11:43)
[2022-05-02] MEDS: iohexol 350 mg/mL 500 mL Btl (per mL) IV (12:25)
--- NOTE | 2022-05-02 13:13 | PC.PHAR ---
[facility] STATES PT HAD NO MEDS TODAY
[2022-05-02] MEDS: ipratropium 0.5 mg/2.5 mL Neb INHALATION (13:14)
[2022-05-02] MEDS: albuterol 2.5 mg/3 mL Neb INHALATION (13:14)
[2022-05-02 15:00] LABS: Troponin 5 6HR 38.98 ng/L (0-15)
[2022-05-02 15:01] LABS: Troponin 5 6HR Delta -0.02 ng/L (0-12)
== END 2022-05-02 15:40 | disposition home or self-care (01) ==
PROVIDERS: Emergency Provider Family Medicine; PCP Family Medicine
DX: R07.89 Other chest pain (principal); J18.9 Pneumonia, unspecified organism; E11.9 Type 2 diabetes mellitus without complications; C18.9 Malignant neoplasm of colon, unspecified; C78.00 Secondary malignant neoplasm of unspecified lung; Z79.82 Long term (current) use of aspirin; I25.10 Atherosclerotic heart disease of native coronary artery without angina pectoris; I11.0 Hypertensive heart disease with heart failure; I50.9 Heart failure, unspecified; Z85.038 Personal history of other malignant neoplasm of large intestine; E78.5 Hyperlipidemia, unspecified; Z95.1 Presence of aortocoronary bypass graft; Z87.891 Personal history of nicotine dependence
CPT/HCPCS: 36415; 71045; 71275; 80053; 83880; 84145; 84484; 85025; 85378; 93005; 94640; 96365; 96375; 99285; J1940; J1956; J2930; J7613; J7644; Q9967

== ENCOUNTER 2022-05-08 10:01 | Emergency (ER) | payer MEDICARE, OTHER, SELFPAY ==
[2022-05-08 10:03] VITALS: BP 129/79; PULSE 107; RESP 16; TEMP 36.9; O2SAT 85; BMI 20.3
--- NOTE | 2022-05-08 10:05 | XR_ITS ---
WS: [id number] PORTABLE CHEST HISTORY: dyspnea/cough COMPARISON: 05/02/2019. Increasing consolidation throughout the LEFT thorax. Very little aerated lung remains. As noted on a prior CT this is a combination of known pulmonary masses and metastatic nodules with volume loss and a small effusion. Elevated RIGHT hemidiaphragm with numerous pulmonary nodules unchanged. Prior CABG. LEFT subclavian Mediport is reidentified. There is volume loss in the LEFT thorax resulting in shift of the mediastinal structures to the LEFT. Cardiac size: Obscured by the pulmonary consolidations. Mediastinum/Aorta: Mild shift to the LEFT. Osteopenia. Marked air distention of the GI tract in the upper abdomen. Prior cholecystectomy. XR/XR chest 1V portable [id number] IMPRESSION: 1. Patient has known bilateral metastatic nodules throughout both lungs. 2. Progressive volume loss and increasing attenuation throughout the LEFT lung . Probably combination of known mass is with volume loss and fluid.
--- NOTE | 2022-05-08 10:06 | ECG_ITS ---
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 Measurements Intervals [place] Rate: 106 P: 6 MA: 149 QRS: 84 QRSD: 86 T: -76 QT: 316 QTc: 421 Interpretive Statements SINUS TACHYCARDIA POSSIBLE ANTERIOR MYOCARDIAL INFARCTION , OF INDETERMINATE AGE [30 ms Q WAVE IN V3/V4, OR R < 0.2 mV IN V4] MODERATE T-WAVE ABNORMALITY, CONSIDER LATERAL ISCHEMIA MODERATE T-WAVE ABNORMALITY, CONSIDER INFERIOR ISCHEMIA Compared to ECG 04/22/2022 07:17:18 Myocardial infarct finding now present T-wave abnormality now present Possible ischemia now present Sinus rhythm no longer present Ventricular premature complex(es) no longer present ST (T wave) deviation no longer present Electronically Signed On 05-08-2022 12:53:56 UNDER TRIMMER by Lourdes Sharif M.D. [id number]
[2022-05-08 10:23] VITALS: BP 92/71; PULSE 117; RESP 44; O2SAT 93
--- NOTE | 2022-05-08 10:27 | PC.PHAR ---
Addendum entered by Cassie Hanks 05/08/22 11:03: still waiting for [facility] to fax mar and tar- brian states the pt had 2 tylenlol at 9am but states pt had no other meds-nh sent some of the mar with pt medications entered are from what part of the mar we had Original Note: pt is from [facility] [phone] [facility]
[2022-05-08 10:28] LABS: Basophils % 0.1 %; Hematocrit 36.3 % (42.0-52.0); Hemoglobin 11.2 g/dL (11.7-16.6); Lymphocytes # 0.7 10^3/uL (0.8-4.8); Lymphocytes % 3.3 %; Mean Corpuscular HGB Conc 30.9 g/dL (30.0-36.0); Mean Corpuscular Hemoglobin 27.1 pg (28.0-34.0); Mean Corpuscular Volume 87.7 fl (80-94); Mean Platelet Volume 10.6 fL (7.4-10.4); Monocytes # 1.2 10^3/uL (0.2-0.9); Neutrophils # 18.12 10^3/uL (1.8-7.7); Neutrophils % 89.9 %; Nucleated Red Blood Cells % 0 %; Platelet Count 142 10^3/cmm (130-400); Red Blood Count 4.14 10^6/uL (4.1-5.3); Red Cell Distribution Width 15.3 % (12.1-15.1); White Blood Count 20.2 10^3/uL (4.0-10.0)
--- NOTE | 2022-05-08 10:36 | W.ED.SOB ---
HPI - SOB/Dyspnea General: Chief Complaint: Shortness of Breath/Dyspnea Stated Complaint: Respitory Distress Time Seen by Provider: 05/08/22 10:04 Source: patient Mode of arrival: ambulatory History of Present Illness: HPI Narrative: 72-year-old male presents emergency room via EMS from local longterm patient has colon cancer with multiple distant metastasized to liver lung. Several weeks ago chemotherapy was stopped because felt to longer be advisable. Patient had recent hospitalization in mid April for COVID-pneumonia. He has significant left ventricular hypokinesia with a dilated right ventricle with an EF of 50%. At the time of discharge he was saturating 90% on 3 L. He was sent into the emergency room today because he felt he decompensated requiring more oxygen. MD elicited complaint: shortness of breath Pertinent past history: COPD and congestive heart failure Context: recent illness Timing: constant Severity: moderate Exacerbating factors: exertion, coughing and talking Relieving factors: oxygen and rest Known history of: COPD and congestive heart failure Associated symptoms: Reports cough and myalgias; Deny abdominal pain, chest congestion, chest pain, diaphoresis, dizziness, extremity pain, fever(s), hemoptysis, lightheadedness, nausea, orthopnea, palpitations, paresthesias, polydipsia, polyuria, rash, sense of impending doom, syncope or vomiting Treatment prior to arrival: oxygen Review of Systems Const: Denies: fever(s) or diaphoresis Card: Denies: chest pain, palpitations, lightheadedness, syncope or orthopnea Resp: Denies: hemoptysis or chest congestion GI: Denies: abdominal pain, nausea or vomiting Musc: Denies: extremity pain Neuro: Denies: dizziness Endo: Denies: polyuria or polydipsia PFSH ED PFSH: Medical History CAD (coronary artery disease) CHF (congestive heart failure), NYHA class I Colon cancer Metastatic to multiple sites including lungs, liver, intra-abdominal lymph nodes, and left adrenal gland Diabetes Dyslipidemia Fatigue Hyperlipidemia Hypertension Hypokalemia Ischemic cardiomyopathy Nephrolithiasis PRIYA (obstructive sleep apnea) PVCs (premature ventricular contractions) Type 2 diabetes mellitus Surgical History History of appendectomy History of cataract extraction History of cholecystectomy History of lithotripsy (06/14/18) Extracorporeal shockwave lithotripsy with ureteral stent placement for left distal ureteral stone Hx of CABG 2014 Port-A-Cath in place (01/04/20) left subclavian Family History Other CAD (coronary artery disease) Myocardial infarction Social History Smoking and tobacco status: former smoker (smoked x 37 years) Quit status (tobacco): has quit using tobacco Year quit tobacco: 2004 Alcohol intake: never Physical Exam Const: GENERAL APPEARANCE: cooperative, comfortable, lethargic, ill appearing and frail appearing ORIENTATION/CONSCIOUSNESS: Yes awake, Yes oriented to person, Yes oriented to place, Yes oriented to time and Yes lethargic HENMT: COMMON NORMALS: normocephalic, atraumatic and hearing grossly normal bilaterally HEAD & SCALP: normocephalic and atraumatic Resp: COMMON NORMALS: normal respiratory effort, No retractions and No use of accessory muscles AUSCULTATION: rhonchi and wheezes Cardio: COMMON NORMALS: regular rate, regular rhythm and No murmurs present (Cardio) RATE: regular rate RHYTHM: regular rhythm GI: COMMON NORMALS: Soft to palpation and No hepatosplenomegaly present AUSCULTATION: Yes normoactive bowel sounds PALPATION: Yes Soft to palpation, No Tenderness to palpation present (GI), No Guarding due to palpation present (GI) and Yes No hepatosplenomegaly present Extremity: COMMON NORMALS: normal to inspection, capillary refill normal, no clubbing, cyanosis or edema, no calf tenderness and no pedal edema Neuro: SENSORIUM/ORIENTATION: Yes oriented to person, Yes oriented to place, Yes oriented to time and Yes lethargic Skin: COMMON NORMALS: no rashes or lesions noted GENERAL SKIN EXAM: no rashes or lesions noted Course Vital Signs: Vital signs: Vital Signs Temperature 98.4 F 05/08/22 10:03 Pulse Rate 104 H 05/08/22 12:08 Respiratory Rate 25 H 05/08/22 12:08 Blood Pressure 99/66 05/08/22 12:08 Pulse Oximetry 96 05/08/22 12:08 Oxygen Delivery Me thod 05/08/22 11:30 Oxygen Flow Rate 5 05/08/22 11:30 MDM - SOB/Dyspnea Medical Decision Making Patient presents with increasing oxygen need. CTA of the chest and no pneumothorax or pneumonia but there is advancing lung metastasis. Think that is the primary reason why he is having more difficulty breathing he also has pain from his tumors. At the moment he is well controlled with his pain. He is sleeping comfortably. He is requiring 5 L by nasal cannula. Discussed with his daughter extensively currently is a full code I recommend that they make him a no code and look at hospice care oncology had stopped all treatments several weeks ago. Family is in agreement with this they need to have a discussion with her father they would like us to refer him back to the longterm and set up possible's consultation. Family is planning on visiting with him and getting him to sign to be a DN arm. Medical Records I reviewed the patient's medical records. Lab Data I reviewed the patient's lab results. 05/08/22 10:16 05/08/22 10:16 Labs/Radiology: Radiology Impressions Chest X-Ray 05/08/22 10:05 IMPRESSION: 1. Patient has known bilateral metastatic nodules throughout both lungs. 2. Progressive volume loss and increasing attenuation throughout the LEFT lung. Probably combination of known mass is with volume loss and fluid. Chest CTA 05/08/22 10:39 IMPRESSION: 1. No pulmonary embolism is identified. 2. Continued progression of metastatic disease throughout both lungs but greatest involving the LEFT upper lobe with obstruction of the LEFT upper lobe bronchus. 3. Small but increasing LEFT pleural effusion. 4. Known metastatic disease within the liver is not well visualized on this examination due to early arterial enhancement. 5. Marked fecal retention and air distention of the visualized colon. Laboratory Results WBC 20.2 10^3/uL (4.0-10.0) H 05/08/22 10:16 RBC 4.14 10^6/uL (4.1-5.3) 05/08/22 10:16 Hgb 11.2 g/dL (11.7-16.6) L 05/08/22 10:16 Hct 36.3 % (42.0-52.0) L 05/08/22 10:16 MCV 87.7 fl (80-94) 05/08/22 10:16 MCH 27.1 pg (28.0-34.0) L 05/08/22 10:16 MCHC 30.9 g/dL (30.0-36.0) 05/08/22 10:16 RDW 15.3 % (12.1-15.1) H 05/08/22 10:16 Plt Count 142 10^3/cmm (130-400) 05/08/22 10:16 MPV 10.6 fL (7.4-10.4) H 05/08/22 10:16 Neut % (Auto) 89.9 % 05/08/22 10:16 Lymph % (Auto) 3.3 % 05/08/22 10:16 [place] % (Auto) 6.0 % 05/08/22 10:16 Eos % (Auto) 0.0 % 05/08/22 10:16 Baso % (Auto) 0.1 % 05/08/22 10:16 Neut # (Auto) 18.12 10^3/uL (1.8-7.7) H 05/08/22 10:16 Lymph # (Auto) 0.7 10^3/uL (0.8-4.8) L 05/08/22 10:16 [place] # (Auto) 1.2 10^3/uL (0.2-0.9) H 05/08/22 10:16 Eos # (Auto) 0.0 10^3/uL (0.0-0.8) 05/08/22 10:16 Baso # (Auto) 0.0 10^3/uL (0.0-0.1) 05/08/22 10:16 Nucleated RBC % (auto) 0 % 05/08/22 10:16 Nucleated RBCs # 0.0 /100WBC 05/08/22 10:16 Specimen Type Arterial 05/08/22 10:32 Sample Site Brachial, right 05/08/22 10:32 ABG pH 7.49 (7.35-7.45) H 05/08/22 10:32 ABG pCO2 42.7 mmHg (35-45) 05/08/22 10:32 ABG pO2 66.4 mmHg (80.0-100.0) L 05/08/22 10:32 ABG HCO3 32.6 mmol/L (22-26) H 05/08/22 10:32 ABG O2 Saturation 94.9 05/08/22 10:32 ABG Base Excess 8.4 mmol/L (-2.0-2.0) H 05/08/22 10:32 Anival Test Pos 05/08/22 10:32 A-a O2 Gradient 22.0 mmHg (5-10) H 05/08/22 10:32 Hematocrit 35.8 % (42-52) L 05/08/22 10:32 Hgb O2 Saturation 93.2 % (95-100) L 05/08/22 10:32 Carboxyhemoglobin 1.4 %THgb (0.4-20.1) 05/08/22 10:32 Methemoglobin 0.4 % (0.4-1.5) 05/08/22 10:32 Total Hemoglobin 11.7 g/dL (14-18) L 05/08/22 10:32 Sodium 142.0 mmol/L (131-143) 05/08/22 10:32 Potassium 4.2 mmol/L (3.5-5.0) 05/08/22 10:32 Glucose 89.0 mg/dL (70-115) 05/08/22 10:32 Ionized Calcium 1.1 mmol/L (1.1-1.4) 05/08/22 10:32 O2 Delivery Device Nc 05/08/22 10:32 O2 Liters/Min 5.0 % 05/08/22 10:32 FiO2 40.0 % 05/08/22 10:32 Heater Engineer Helper ID [place] 05/08/22 10:32 Sodium 141 mmol/L (136-145) 05/08/22 10:16 Potassium 4.4 mmol/L (3.5-5.1) 05/08/22 10:16 Chloride 99 mmol/L (98-107) 05/08/22 10:16 Carbon Dioxide 32 mmol/L (22-29) H 05/08/22 10:16 Anion Gap 14.4 (5-19) 05/08/22 10:16 BUN 39 mg/dL (8-23) H 05/08/22 10:16 Creatinine 1.1 mg/dL (0.7-1.2) 05/08/22 10:16 GFR Calculation Not Reportable 05/08/22 10:16 Glucose 83 mg/dL (65-115) 05/08/22 10:16 Calculated Osmolality 301 mOsm/kg (285-295) H 05/08/22 10:16 Calcium 8.6 mg/dL (8.5-10.5) 05/08/22 10:16 Total Bilirubin 0.9 mg/dL (0.15-1.2) 05/08/22 10:16 AST 77 U/L (0-40) H 05/08/22 10:16 ALT 51 U/L (0-41) H 05/08/22 10:16 Alkaline Phosphatase 519 U/L (40-130) H 05/08/22 10:16 Troponin T Baseline 53 ng/L (0-15) H 05/08/22 10:16 Troponin T 120 Minute 53.37 ng/L (0-15) H 05/08/22 12:04 Delta Troponin T 0.37 ABS# (0-10) 05/08/22 12:04 NT-Pro-B Natriuret Pep 2335 pg/mL (0-125) H 05/08/22 10:16 Total Protein 6.7 g/dL (6.6-8.7) 05/08/22 10:16 Albumin 3.1 g/dL (3.5-5.2) L 05/08/22 10:16 Globulin 3.6 g/dL (1.3-4.6) 05/08/22 10:16 Discharge Plan Discharge Patient Disposition: Home Clinical Impression: Malignant neoplasm of sigmoid colon, Metastasis to lung, Secondary malignant neoplasm of liver and intrahepatic bile duct, Type 2 diabetes mellitus Condition: Stable Prescriptions: No Action cholecalciferol (vitamin D3) 50 mcg (2,000 unit) capsule 50 mcg PO DAILY@07 ferrous sulfate 325 mg (65 mg iron) tablet,delayed release (DR/EC) 325 mg PO EVERY OTHER DAY magnesium oxide 400 mg magnesium capsule 400 mg PO BID@07,16 ondansetron HCl 8 mg tablet 8 mg PO Q8H PRN (Reason: nausea and vomiting) Qty: 30 1RF benzonatate 100 mg capsule 100 mg PO TID PRN (Reason: cough) Qty: 30 0RF albuterol sulfate 90 mcg/actuation HFA aerosol inhaler 2 puff INHALATION Q6H PRN (Reason: Shortness Of Breath) Nitrostat 0.4 mg Tablet, Sublingual 0.4 mg SUBLINGUAL Q5M PRN (Reason: Chest Pain) Rx Instructions: do not exceed 3 doses per episode docusate sodium 100 mg capsule 100 mg PO BID@07,16 folic acid 1 mg tablet 1 mg PO BID@07,16 Lasix 20 mg tablet 20 mg PO DAILY@07 Tylenol 325 mg Tablet 650 mg PO .ONCE magnesium hydroxide [Milk of Magnesia] 400 mg/5 mL Suspension 30 ml PO DAILY PRN (Reason: Constipation) bisacodyl [Dulcolax (bisacodyl)] 10 mg Suppository 10 mg SC DAILY PRN (Reason: Constipation) Fleet Enema 19-7 gram/118 mL Enema 118 ml SC DAILY PRN (Reason: Constipation) dexamethasone 6 mg tablet 6 mg PO DAILY@07 Rx Instructions: TILL 05/08/22 diphenoxylate-atropine [Lomotil] 2.5-0.025 mg tablet 2 tab PO Q6H PRN (Reason: diarrhea) aspirin 81 mg tablet,delayed release (DR/EC) 81 mg PO DAILY@07 multivitamin with folic acid [Thera] 400 mcg tablet 1 tab PO DAILY@07 Combivent Respimat 20-100 mcg/actuation mist 1 puff inhalation QID Rx Instructions: @07:00,11:00,16:00,19:00 Discharge Orders: Discharge ED (Routine); Ordered 05/08/22 Ordered By: Sherif Loza Referrals: Janina Clinton DO [Primary Care Provider] - Activity Restrictions/Additional Instructions: You are seen today for difficulty breathing. CT of your chest did not show any pulmonary embolism but did show advancing metastasis to her lungs that is worsened since previous imaging a few weeks ago. With increasing oxygen supplementation her sats are normal. Would recommend that you consult with hospice. Increased oxygen sat concentration at the longterm as needed to maintain sats above 92% Coding Level of Care Code ED Managing Consultant for Gavino Lovell
--- NOTE | 2022-05-08 10:39 | CT_ITS ---
WS: [id number] CT CHEST ANGIOGRAPHY WITH REFORMATS HISTORY: dyspnea TECHNIQUE: Contiguous axial images are obtained through the chest during arterial injection of intrav enous contrast. Images are reconstructed to evaluate the pulmonary arteries. MIP imaging also reviewe d. All CT scans at [facility] use at least one of these dose optimization techniques: automat ed exposure control; mA and/or kV adjustment per patient size (includes targeted exams where dose is matched to clinical indication); or iterative reconstruction. CONTRAST: Omnipaque 350; 72 mL IV. DLP: 236.29 mGy.cm COMPARISON: 05/02/2022 Very good opacification of the pulmonary arteries. No central pulmonary emboli or filling defects are identified. The peripheral pulmonary arteries are less well-opacified. LEFT upper lobe arteries are surrounded by tumor and atelectasis. Normal size main pulmonary artery. Atherosclerosis aorta. Ectati c aorta. Patient has known extensive metastatic masses and nodules throughout both lungs. Greater distribution throughout the LEFT lung. Significant increase in the consolidation in the LEFT upper lobe since the prior study. There is obstruction of the LEFT upper lobe bronchus. Increasing atelectasis and pleura l effusion. Obstruction is probably related to tumor extension. Volume loss and midline shift has pro gressed to the LEFT. No pneumothorax. Small layering LEFT pleural effusion is new and extends over th e apex of the LEFT lung. Small LEFT axillary lymph nodes. None large LEFT supraclavicular lymph node. No mediastinal adenopath y is identified other than the tumor extension. Patient has known metastatic lesions throughout the l iver. These are not as well visualized on this examination due to early arterial enhancement but ther e is variable density throughout the liver and extensive calcifications. There is marked air distenti on of the visualized colon and fecal retention. No free air is identified. CT/CT angio chest PE protcl [id number] IMPRESSION: 1. No pulmonary embolism is identified. 2. Continued progression of metastatic disease throughout both lungs but great est involving the LEFT upper lobe with obstruction of the LEFT upper lobe bronc hus. 3. Small but increasing LEFT pleural effusion. 4. Known metastatic disease within the liver is not well visualized on this ex amination due to early arterial enhancement. 5. Marked fecal retention and air distention of the visualized colon.
[2022-05-08 10:45] VITALS: BP 101/70; PULSE 107; RESP 37; O2SAT 96
[2022-05-08 10:46] LABS: ABG PCO2 42.7 mmHg (35-45); ABG PH Result 7.49 (7.35-7.45); Arterial Blood Gas Hematocrit 35.8 % (42-52); Base Excess ABG 8.4 mmol/L (-2.0-2.0); Blood Gas Allen Test Pos; Blood Gas Operator Identificat MONRO; Blood Gas Sample Site Brachial, right; Blood Gas Sample Type Arterial; Carboxyhemoglobin 1.4 %THgb (0.4-20.1); HCO3 ABG 32.6 mmol/L (22-26); HGB O2 Sat 93.2 % (95-100); Ionized Calcium Level - ABG 1.1 mmol/L (1.1-1.4); Methemoglobin 0.4 % (0.4-1.5); Oxygen Device NC; Oxygen Saturation ABG 94.9; PO2 ABG 66.4 mmHg (80.0-100.0); Potassium Level - ABG 4.2 mmol/L (3.5-5.0); Total Hemoglobin 11.7 g/dL (14-18)
[2022-05-08 10:57] LABS: Troponin(5th) Baseline 53 ng/L (0-15)
[2022-05-08 11:00] VITALS: BP 108/69; PULSE 111; RESP 43; O2SAT 95
[2022-05-08 11:05] LABS: Alanine Aminotransferase 51 U/L (0-41); Albumin Level 3.1 g/dL (3.5-5.2); Alkaline Phosphatase 519 U/L (40-130); Blood Urea Nitrogen 39 mg/dL (8-23); Calcium 8.6 mg/dL (8.5-10.5); Carbon Dioxide 32 mmol/L (22-29); Chloride 99 mmol/L (98-107); Creatinine Clr Calc Pharmacy 53.5042; Globulin 3.6 g/dL (1.3-4.6); Glucose 83 mg/dL (65-115); NT Pro B Type Natriuretic Pept 2335 pg/mL (0-125); Osmolality Calculated 301 mOsm/kg (285-295); Sodium 141 mmol/L (136-145); Total Bilirubin 0.9 mg/dL (0.15-1.2); Total Protein 6.7 g/dL (6.6-8.7)
[2022-05-08 11:12] LABS: Anion Gap 14.4 (5-19); Aspartate Amino Transferase 77 U/L (0-40); Potassium 4.4 mmol/L (3.5-5.1)
[2022-05-08] MEDS: iohexol 350 mg/mL 500 mL Btl (per mL) IV (11:28)
[2022-05-08 11:30] VITALS: BP 100/63; PULSE 103; RESP 24; O2SAT 99
--- NOTE | 2022-05-08 12:06 | ECG_ITS ---
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 Measurements Intervals [place] Rate: 103 P: -19 SD: 142 QRS: 67 QRSD: 92 T: 267 QT: 325 QTc: 426 Interpretive Statements SINUS TACHYCARDIA POSSIBLE ANTERIOR MYOCARDIAL INFARCTION , OF INDETERMINATE AGE [30 ms Q WAVE IN V3/V4, OR R < 0.2 mV IN V4] POSSIBLE INFERIOR MYOCARDIAL INFARCTION , OF INDETERMINATE AGE [30 ms Q WAVE IN II/aVF] Compared to ECG 05/08/2022 10:19:11 T-wave abnormality no longer present Possible ischemia no longer present Myocardial infarct finding still present Electronically Signed On 05-08-2022 12:54:57 EAR NOSE THROAT SURGEON by Lourdes Sharif M.D. [id number]
[2022-05-08 12:08] VITALS: BP 99/66; PULSE 104; RESP 25; O2SAT 96
--- NOTE | 2022-05-08 12:34 | PC.NURSE ---
PT PLACED ON CONTINUOUS NIBP, SPO2, AND CM
[2022-05-08 12:36] LABS: Troponin 5 2HR 53.37 ng/L (0-15)
[2022-05-08 12:38] LABS: Troponin 5 2HR Delta 0.37 ABS# (0-10)
--- NOTE | 2022-05-08 13:07 | DCPLANNER ---
project construction assistant manager was asked to speak with patients daughter about setting patient up on hospice. project construction assistant manager spoke with patients daughter, she stated that she wanted to speak with the patient and the prison before deciding anything at this time. Patients daughter stated that she would call comp field case manager back if she wanted comp field case manager to help her with a hospice referral.
== END 2022-05-08 13:56 | disposition home or self-care (01) ==
PROVIDERS: Emergency Provider Family Medicine; PCP Family Medicine
DX: C18.7 Malignant neoplasm of sigmoid colon (principal); C78.00 Secondary malignant neoplasm of unspecified lung; C78.7 Secondary malignant neoplasm of liver and intrahepatic bile duct; E11.9 Type 2 diabetes mellitus without complications; I10 Essential (primary) hypertension; I25.10 Atherosclerotic heart disease of native coronary artery without angina pectoris; I50.9 Heart failure, unspecified
CPT/HCPCS: 36415; 36600; 71045; 71275; 80051; 80053; 82330; 82805; 83880; 84484; 85025; 93005; 99285; Q9967